=== PATIENT | female | born 1965 | race Caucasian/White ===

== ENCOUNTER → 2018-02-22 13:42 | Outpatient (CLI) | payer OTHER, SELFPAY ==
--- NOTE | 2018-02-22 13:47 | EKG12_ITS ---
Test Reason : PALPITATIONS Blood Pressure : / mmHG Vent. Rate : 059 BPM Atrial Rate : 059 BPM P-R Int : 152 ms QRS Dur : 092 ms QT Int : 446 ms P-R-T Axes : 053 018 040 degrees QTc Int : 441 ms Sinus bradycardia Otherwise normal ECG Confirmed by SUSANNE MICHELLE, IDALMIS ([id number]), editor managing newspaper ROD PADILLA ([id number]) on 02/23/2018 12:55:02 PM Referred By: Stephenie LONG Confirmed By:IDALMIS SKINNER MD
== END ==
LOC: CVS 13:43
PROVIDERS: Visit Provider Nurse Practitioner Family
DX: I49.9 Cardiac arrhythmia, unspecified (principal)
CPT/HCPCS: 93005

== ENCOUNTER → 2018-03-08 14:43 | Outpatient (CLI) | payer OTHER, SELFPAY | DX: Z12.31 Encounter for screening mammogram for malignant neoplasm of breast (principal) | CPT/HCPCS: 77063; 77067 ==

== ENCOUNTER → 2018-03-23 15:47 | Outpatient (CLI) | payer OTHER, SELFPAY | DX: R00.2 Palpitations (principal); R00.1 Bradycardia, unspecified; I49.9 Cardiac arrhythmia, unspecified; Z86.79 Personal history of other diseases of the circulatory system | CPT/HCPCS: 93306 ==

== ENCOUNTER → 2018-04-03 16:10 | Outpatient (CLI) | payer OTHER, SELFPAY | PROVIDERS: Visit Provider Internal Medicine Cardiovascular Disease | DX: R93.1 Abnormal findings on diagnostic imaging of heart and coronary circulation (principal); I36.1 Nonrheumatic tricuspid (valve) insufficiency; I51.9 Heart disease, unspecified; R07.9 Chest pain, unspecified; R06.02 Shortness of breath | CPT/HCPCS: 71046; 71275; Q9967; A4216 ==

== ENCOUNTER → 2018-04-12 09:28 | Outpatient (CLI) | payer OTHER, SELFPAY ==
[2018-04-12 12:21] LABS: AST(SGOT) 18 U/L (15-37); Alanine Aminotransfer ALT/SGPT 16 U/L (13-56); Albumin, Serum 3.8 g/dL (3.2-5.0); Alkaline Phosphatase 82 U/L (45-117); Bilirubin, Direct 0.17 mg/dL (0.00-0.30); Cholesterol 177 mg/dL (200); Globulin 4.1 g/dL (2.2-4.2); High Density Lipoprotein 46 mg/dL; Protein, Total 7.9 g/dL (6.4-8.2); Triglycerides 178 mg/dL; Very Low Density Lipoprotein 36 mg/dL (5-40)
== END ==
PROVIDERS: Visit Provider Internal Medicine Cardiovascular Disease
DX: R07.9 Chest pain, unspecified (principal); I42.8 Other cardiomyopathies; R06.02 Shortness of breath; E06.3 Autoimmune thyroiditis; E03.9 Hypothyroidism, unspecified; I51.9 Heart disease, unspecified; E78.5 Hyperlipidemia, unspecified
CPT/HCPCS: 36415; 80061; 80076; 93017; 93350

== ENCOUNTER → 2018-04-12 09:30 | Outpatient (REF) | payer OTHER, SELFPAY | LOC: CVS 09:30 | PROVIDERS: Visit Provider Internal Medicine Cardiovascular Disease | DX: R00.0 Tachycardia, unspecified (principal); R00.2 Palpitations | CPT/HCPCS: 93270 ==

== ENCOUNTER 2018-04-19 06:58 | Day surgery (SDC) | payer OTHER, SELFPAY ==
[2018-04-14 11:02] LABS: Hematocrit 39.1 % (37-47); Hemoglobin 12.6 g/dl (12.0-15.0); Mean Corp Hgb Conc 32.2 g/gl (32-36); Mean Corpuscular Hgb 29.6 pg (27.0-32.0); Mean Corpuscular Volume 91.8 fL (81-99); Mean Platelet Vol. 11.1 fl (6.2-12.0); Platelet Count 259 K/mm3 (150-450); RBC Distribution Width CV 13.4 % (11.6-14.6); RBC Distribution Width SD 44.4 fl (35.1-43.9); Red Blood Count 4.26 M/mm3 (4.2-5.4); White Blood Count 5.8 K/mm3 (4.4-11.0)
[2018-04-14 11:04] LABS: Scan Indicated on CBC? Y/N NO
[2018-04-14 11:11] LABS: Partial Thromboplast Time 28.5 Seconds (24.1-36.2)
[2018-04-14 11:20] LABS: Anion Gap 8 (5-15); BUN 17 mg/dL (7-18); BUN/Creat Ratio 22.8 RATIO (10-20); Chloride 105 mmol/L (98-107); Creatinine, Serum 0.74 mg/dL (0.55-1.02); EST Glomerular Filtration Rate 87 mL/min (>60); Est Glom Filt Rate - Afr Amer 105 mL/min (>60); Glucose 97 mg/dL (74-106); Potassium 3.9 mmol/L (3.5-5.1); Sodium Level 141 mmol/L (136-145)
[2018-04-18 07:57] VITALS: BMI 39.9
[2018-04-19] VITALS (22 sets, daily range): BP systolic 105–167; BP diastolic 54–100; PULSE 62–80; RESP 15–20; TEMP 36–36.4; O2SAT 97–99; BMI 39.7
[2018-04-19 07:34] LABS: Pregnancy, Serum, hCG Quali. NEGATIVE Negative (0-9 Nonpreg)
[2018-04-19 09:46] LABS: ACT Activated Clotting Time 208 sec (74-137)
--- NOTE | 2018-04-19 09:57 | CL.I_ITS ---
Patient Name: MIAN WOLFE Study Date: 04/19/2018 Performing: Shaji Cary MD Ht: 61.81 inches 157 cm : 1965 Wt: 218.26 lbs 99 kg Age: 52 Gender: female BSA: 1.98 PROCEDURE(S) PERFORMED [id number]/COR/LV [id number], CORONARY OR GRAFT, INITIAL VESSEL CT42-VUR W OR WO PTCA, SINGLE CORONARY ARTERY CLINICAL PROFILE AND CO-MORBIDITIES Indications: New Onset Angina <= 2 months, Worsening Angina, Suspected CAD, Cardiomyopathy Heart Failure: NYHA Class: 2, Newly Diagnosed: No, Heart Failure Type: Systolic Stress/Imaging Stress Echocardiogram: Yes Result: Negative Stress Echocardiogram: Negative Angina Classification Anginal Classification w/in 2 Weeks: CCS III CAD Presentations: Unstable angina. Comorbidities/Risk Factors: Hypertension Dyslipidemia Prior CHF CONCLUSIONS Global LV systolic dysfunction- Mild Single vessel CAD of the LAD Non obstructive coronary arteries Successful PTCA/BLANCO of the of proximal LAD after FFR eval showed 0.84. Pt received a 3.0 x 28 Promsu Synergy stent with primary deployment and had exact same anginal symptoms with balloon inflation. 7 5%-->0%, no dissection. RECOMMENDATIONS Staged for FFR Highly recommend quitting all tobacco products Follow up with primary childcare teacher Risk factor modification ASA Indefinitley Plavix for at least 12 months Routine post interventional care Refer for Outpatient Cardiac Rehab Manual sheath removal per protocol Follow up with Dr. Cary Successful Mynx closure of RFA. Sleep study eval in 2 weeks. DESCRIPTION OF PROCEDURE The patient arrived to the procedure lab. The risks and benefits of the procedure as well as a full d escription of our services here and lack of surgical backup were fully explained to the patient and/o r their significant other prior to the catheterization. The Timeout was completed, verifying the juana ect patient and procedure. The patient's procedural site was prepped and draped in the usual fashion. Local anesthetic was given subcutaneously to right groin region with Lidocaine 2%. Using a modified Seldinger technique, arterial access was obtained via the right femoral artery, a 4Fr sheath was inse rted. Left Coronary Artery selective angiography was performed in multiple views using a 4 Fr. JL5 c atheter. Right Coronary Artery selective angiography was then performed in multiple views using a 4 F r. AR MOD 2 catheter. Left Ventriculography was performed in BARROSO projection using a 4 Fr. Pigtail cat heter. LV to AO pullback pressures were then recordedThe images were reviewed and options discussed. A decision was then made to proceed with an Intervention, IVUS or other adjunct procedure. Arterial sheath was exchanged for a 6 Fr Sheath. EBU 3.5 Guide catheter was inserted and engaged into the LCA. The FFR/iFR wire was inserted. Adenosine was then given per protocol. Pressures and FFR/iFR were then recorded. FFR Ratio Baseline: 0.95 FFR Ratio post Adenosine: 0.84 The FFR/iFR wire was lef t in place as guide wire. 3.0 x 28 Synergy Drug Eluting stent was inserted. Drug Eluting stent was ad vanced across the lesion in the LAD, mid. Angiogram performed pre stent deployment. Angiogram perform ed post stent deployment. The FFR/iFR wire was then removed. Contrast was injected through the sheath and the Right Iliac and Femoral artery were assessed for possible closure device. The arterial christensen th was pulled and a Mynx closure device was deployed for hemostasis CORONARY ANGIOGRAPHY DOMINANCE: Co- Dominant LEFT HEART ASSESSMENT Left Ventricular Ejection Fraction: by LV Gram 40-45% Depressed Left Ventricular systolic function LVEDP: 12 mmHg Global Hypokinesis - Mild to moderate LEFT MAIN: Angiographically normal LEFT ANTERIOR DECENDING ARTERY: MID LAD: 75 % Stenosis CIRCUMFLEX ARTERY: Angiographically normal RIGHT CORONARY ARTERY: MID RCA: Mild luminal irregularities less than 30% INTERVENTION INFORMATION LESION SITE: LAD (Mid) Lesion Complexity: High/C, lesion at bifurcation: No, thrombus present: No, lesion length: 28 mm, cul prit lesion: Yes Pre Stenosis: 75 % Pre intervention ILIANA flow: 3 PROCEDURE: FFR, Drug Eluting Stent Post Stenosis: 0 % Post intervention ILIANA flow: 3 Lesion Devices: [employer] Devices ( Formerly [employer]) Coronary FFR Wire Nuzzeltronic 6 Fr EBU3.5 100cm Guide Catheter Gunnar Dimdim Synergy MR BLANCO 3.00x28 COMPLICATIONS No Complications PROCEDURE MEDICATIONS Versed 1 mg IV Versed 1 mg IV Oxygen: 2 L/min via nasal cannula Adenosine drip for FFR 27.2 ml IV @ 04/19/2018 09:35:37 Heparin 6000 unit(s) IV 04/19/2018 09:13:18 Nitro 200 mcg IC 04/19/2018 09:02:10 Nitro 200 mcg IC 04/19/2018 09:02:10 Nitro 200 mcg IC 04/19/2018 09:16:36 IV Bolus: .9 NaCl 500 ml total 04/19/2018 09:37:09 IV Fluids: .9 NaCl increased to WO ml/hr 04/19/2018 08:59:34 IV Fluids: .9 NaCl decreased to 150 ml/hr 04/19/2018 09:37:15 SUMMARY OF HEMODYNAMIC DATA Time AIR REST ECG 07:45:29 AO 126/76 (98) SA 08:59:21 LV 148/-10, 10 09:12:12 LV 147/-9, 12 09:12:19 LVp 138/-9, 10 09:12:24 AOp 133/67 (95) 09:12:29 Signed By Shaji Cary MD On 04/19/2018 09:57:11 Shaji Cary MD
[2018-04-19] MEDS: 0.9% Normal Saline 1,000 ML 150 ML IV (10:30)
--- NOTE | 2018-04-19 10:31 | EKG12_ITS ---
Test Reason : POST PCI Blood Pressure : / mmHG Vent. Rate : 069 BPM Atrial Rate : 069 BPM P-R Int : 178 ms QRS Dur : 094 ms QT Int : 444 ms P-R-T Axes : 058 022 025 degrees QTc Int : 475 ms Normal sinus rhythm Normal ECG When compared with ECG of 22-FEB-2018 14:01, No significant change was found Confirmed by SUSANNE MICHELLE, IDALMIS ([id number]), primer expeditor and drier ROD PADILLA ([id number]) on 04/23/2018 4:00:38 PM Referred By: Shaji Cary Confirmed By:IDALMIS SKINNER MD
[2018-04-19] MEDS: diazePAM 5 MG Tablet PO ×3 (11:39→23:45)
[2018-04-19] MEDS: Escitalopram Oxalate 20 MG Tablet PO (11:59)
[2018-04-19] MEDS: Carvedilol 3.125 MG TABLET PO ×2 (12:01→20:43)
--- NOTE | 2018-04-19 12:10 | CRPHASE1 ---
Patient Data/Charges Sand Cutter:: Shaji Cary Surgeon:: Shaji Cary Refer Phase II:: Yes Phase II Referral:: [facility] Risk Factors/Lifestyle Hx Dyslipidemia: Yes Family History: Family History (Last Reviewed 04/03/18 @ 15:06 by Marika Alejo) Father CAD (coronary artery disease) Diabetes Dementia Mother CAD (coronary artery disease) Hypertension Sister Diabetes Sister Diabetes Phase I Education Given On:: [place], Nutrition, Antiplatelet medication, CHF, Smoking cessation, Diabetes - Type I, Diabetes - Type II Knowledge of Condition:: Yes Hospital Course Presenting Symptoms:: CP, SOB Medical/Surgical History Angina:: Yes Dyslipidemia:: Yes PTCA:: Yes
--- NOTE | 2018-04-19 12:14 | CRPHASE1_ITS ---
Patient Data/Charges News Cameraman:: Shaji Cary Surgeon:: Shaji Cary Refer Phase II:: Yes Phase II Referral:: [facility] Risk Factors/Lifestyle Hx Dyslipidemia: Yes Family History: Family History (Last Reviewed 04/03/18 @ 15:06 by Marika Alejo) Father CAD (coronary artery disease) Diabetes Dementia Mother CAD (coronary artery disease) Hypertension Sister Diabetes Sister Diabetes Phase I Education Given On:: [place], Nutrition, Antiplatelet medication, CHF, Smoking cessation, Diabetes - Type I, Diabetes - Type II Knowledge of Condition:: Yes Hospital Course Presenting Symptoms:: CP, SOB Medical/Surgical History Angina:: Yes Dyslipidemia:: Yes PTCA:: Yes
--- NOTE | 2018-04-19 12:16 | CRPH1.INSTRU ---
General Education CAD and cardiac anatomy and function:: Patient communicates acknowledgment Explanation of diagnoses and procedures:: Patient communicates acknowledgment Sign/Symptoms of [place]:: Patient communicates acknowledgment Antiplatelet therapy: Patient communicates acknowledgment Proper use of NTG-SL: Not instructed Emergency procedures and activation of EMS: Patient communicates acknowledgment Compliance of all prescribed medications: Patient communicates acknowledgment Smoking Nicotine/Smoking Response Code:: Not instructed Dyslipidemia Dyslipidemia Response Code:: Patient communicates acknowledgment Overweight/Obesity Patient Overweight/Obesity Risk Factors Are:: Obesity - > or = 30 Overweight/Obesity:: Patient communicates acknowledgment Hypertension Hypertension:: Patient communicates acknowledgment Heart Disease Patient Heart Disease Risk Factors Are:: Family history of heart disease < 65 years old Heart Disease Response Code:: Patient communicates acknowledgment Diabetes Diabetes:: Patient communicates acknowledgment Metabolic Syndrome Metabolic Syndrome Response Code:: Patient communicates acknowledgment Sedentary Sedentary Response Code:: Patient communicates acknowledgment Stress Stress Response Code:: Patient communicates acknowledgment
[2018-04-19] MEDS: Metoclopramide 10 MG/2 ML Vial 5 MG IV (15:01)
[2018-04-19] MEDS: 0.9% NaCl Peripheral Flush Adult/Peds IV (15:01)
--- NOTE | 2018-04-19 15:50 | PCM.DC.CCA ---
Discharge Diet: Low fat/ Low Cholesterol May shower in (days): 1 May resume sexual activity in: 1 week - if no groin problems occur. Lifting Restrictions: 10 pounds and also avoid any pushing or pulling for 3 days after your test. Call your doctor if your incision/area has: Continuous Slow Oozing, Increased Pain/ Swelling, Increased Redness, Foul Smelling Discharge, Swelling at the incision site Call your doctor if you observe: Fever of 101 or Higher, Shortness of breath, Chest pain Remove Dressing in (days):: 1 Cleanse incision/area with: Soap & Water Additional Dressing/Incision Instructions:: Keep the dressing (bandage) on until the next morning. You may then shower, but do not take a tub bath for 5 days after your test. It is normal to have some tenderness and discomfort at the puncture site. Sometimes bruising also occurs. However, if pain, numbness, or coldness occurs below the puncture site (in your leg, toes, arms or fingers) call your doctor at once. You may have a small, marble sized knot at the puncture site. This is normal. Do not rub it. It will go away in 4-6 weeks. Bleeding can occur from the area where the puncture was done. Blood may spurt or drip from the site. If blood spurts, apply pressure right away to stop bleeding and call 911. Although rare, bleeding into the tissue (hematoma) can also occur. If this happens, a large, firm area goose egg under the skin will appear. If any of these occur, lie down as flat as you can and have someone apply firm pressure to the cath site with a gauze pad or a clean washcloth for 10-15 minutes. Call 911 or go to the Emergency Department. Additional Instructions: You will need to stay on your Plavix and ASA for at least one year. If someone asks rachel to hold this medication you need to call our office. At your next appt we will talk about cardiac rehab. You were started on Coreg and Lipitor, we will check your labs after your next visit. Allergies/Adverse Reactions: Allergies Sulfa (Sulfonamide Antibiotics) Allergy (Verified 04/02/18 10:39) Hives Medications to take at Discharge Ferrous Sulfate [Iron] 650 mg PO DAILY 12/30/16 levothyroxine 137 mcg capsule 137 mcg PO DAILY 04/02/18 escitalopram 20 mg tablet 20 mg PO DAILY 04/03/18 liothyronine 5 mcg tablet 5 mcg PO .COMPLEX 04/03/18 aspirin 81 mg tablet,delayed release 81 mg PO DAILY #30 tab 04/13/18 atorvastatin 20 mg tablet 20 mg PO QHS #30 tab 04/19/18 carvedilol 3.125 mg tablet 3.125 mg PO BID #60 tab 04/19/18 clopidogrel 75 mg tablet 75 mg PO DAILY #30 tab 04/19/18 Primary Care Physician: Allyn Kang [Primary Care Provider] - Test Results: Test results from this visit will be discussed in further detail at your follow-up appointment, if applicable. Please Follow Up With: Shaji Cary MD When: keep as is Cardiac Rehabilitation Info Cardiac Rehabilitation Program Information: Cardiac Rehabilitation is important for patients like you who are recovering from a heart problem. Cardiac rehabilitation programs are recognized as integral to the continued care of the patient with coronary heart disease. The cardiac rehabilitation program is designed to optimize a patient's physical, psychological, and social functioning. Health medicare specialist work in cardiac rehabilitation programs and assist you with getting the treatments you need to get stronger and healthier - like exercise, healthy eating habits, and medications. Cardiac rehabilitation has been show to help people with heart problems live longer and have better life enjoyment than people who do not go to cardiac rehabilitation. Please contact the Cardiac Rehabilitation Program at [facility] at in two weeks if you have not heard from them.
--- NOTE | 2018-04-19 15:53 | DCINST_ITS ---
Discharge Diet: Low fat/ Low Cholesterol May shower in (days): 1 May resume sexual activity in: 1 week - if no groin problems occur. Lifting Restrictions: 10 pounds and also avoid any pushing or pulling for 3 days after your test. Call your doctor if your incision/area has: Continuous Slow Oozing, Increased Pain/ Swelling, Increased Redness, Foul Smelling Discharge, Swelling at the incision site Call your doctor if you observe: Fever of 101 or Higher, Shortness of breath, Chest pain Remove Dressing in (days):: 1 Cleanse incision/area with: Soap & Water Additional Dressing/Incision Instructions:: Keep the dressing (bandage) on until the next morning. You may then shower, but do not take a tub bath for 5 days after your test. It is normal to have some tenderness and discomfort at the puncture site. Sometimes bruising also occurs. However, if pain, numbness, or coldness occurs below the puncture site (in your leg, toes, arms or fingers) call your doctor at once. You may have a small, marble sized knot at the puncture site. This is normal. Do not rub it. It will go away in 4-6 weeks. Bleeding can occur from the area where the puncture was done. Blood may spurt or drip from the site. If blood spurts, apply pressure right away to stop bleeding and call 911. Although rare, bleeding into the tissue (hematoma) can also occur. If this happens, a large, firm area goose egg under the skin will appear. If any of these occur, lie down as flat as you can and have someone apply firm pressure to the cath site with a gauze pad or a clean washcloth for 10-15 minutes. Call 911 or go to the Emergency Department. Additional Instructions: You will need to stay on your Plavix and ASA for at least one year. If someone asks rachel to hold this medication you need to call our office. At your next appt we will talk about cardiac rehab. You were started on Coreg and Lipitor, we will check your labs after your next visit. Allergies/Adverse Reactions: Allergies Sulfa (Sulfonamide Antibiotics) Allergy (Verified 04/02/18 10:39) Hives Medications to take at Discharge Ferrous Sulfate [Iron] 650 mg PO DAILY 12/30/16 levothyroxine 137 mcg capsule 137 mcg PO DAILY 04/02/18 escitalopram 20 mg tablet 20 mg PO DAILY 04/03/18 liothyronine 5 mcg tablet 5 mcg PO .COMPLEX 04/03/18 aspirin 81 mg tablet,delayed release 81 mg PO DAILY #30 tab 04/13/18 atorvastatin 20 mg tablet 20 mg PO QHS #30 tab 04/19/18 carvedilol 3.125 mg tablet 3.125 mg PO BID #60 tab 04/19/18 clopidogrel 75 mg tablet 75 mg PO DAILY #30 tab 04/19/18 Primary Care Physician: Allyn Kang [Primary Care Provider] - Test Results: Test results from this visit will be discussed in further detail at your follow- up appointment, if applicable. Please Follow Up With: Shaji Cary MD When: keep as is Cardiac Rehabilitation Info Cardiac Rehabilitation Program Information: Cardiac Rehabilitation is important for patients like you who are recovering from a heart problem. Cardiac rehabilitation programs are recognized as integral to the continued care of the patient with coronary heart disease. The cardiac rehabilitation program is designed to optimize a patient's physical, psychological, and social functioning. Health care transitions nurse work in cardiac rehabilitation programs and assist you with getting the treatments you need to get stronger and healthier - like exercise, healthy eating habits, and medications. Cardiac rehabilitation has been show to help people with heart problems live longer and have better life enjoyment than people who do not go to cardiac rehabilitation. Please contact the Cardiac Rehabilitation Program at [facility] at in two weeks if you have not heard from them.
[2018-04-19] MEDS: Acetaminophen 325 MG Tablet 650 MG PO ×2 (17:39→23:45)
[2018-04-19] MEDS: Levothyroxine 137 MCG Tablet PO (20:43)
[2018-04-19] MEDS: Atorvastatin Calcium 20 MG Tablet PO (20:43)
[2018-04-20] VITALS (12 sets, daily range): BP systolic 109–148; BP diastolic 47–91; PULSE 57–76; RESP 14–18; TEMP 36.1–36.7; O2SAT 95–99
[2018-04-20 04:54] LABS: Hematocrit 36.4 % (37-47); Mean Corpuscular Hgb 30.5 pg (27.0-32.0); Mean Corpuscular Volume 92.6 fL (81-99); Mean Platelet Vol. 10.6 fl (6.2-12.0); Platelet Count 255 K/mm3 (150-450); RBC Distribution Width CV 13.6 % (11.6-14.6); RBC Distribution Width SD 45.6 fl (35.1-43.9); Red Blood Count 3.93 M/mm3 (4.2-5.4)
[2018-04-20 04:56] LABS: Scan Indicated on CBC? Y/N NO
[2018-04-20 05:11] LABS: Anion Gap 10 (5-15); BUN 13 mg/dL (7-18); BUN/Creat Ratio 21.4 RATIO (10-20); Calcium,Total 8.6 mg/dL (8.5-10.1); Chloride 106 mmol/L (98-107); Cholesterol 137 mg/dL (200); Creatinine, Serum 0.61 mg/dL (0.55-1.02); EST Glomerular Filtration Rate 110 mL/min (>60); Est Glom Filt Rate - Afr Amer 133 mL/min (>60); Estimated Creatinine Clearance 82.33 ml/min; Glucose 105 mg/dL (74-106); High Density Lipoprotein 39 mg/dL; Potassium 3.8 mmol/L (3.5-5.1); Sodium Level 142 mmol/L (136-145); Triglycerides 134 mg/dL; Very Low Density Lipoprotein 27 mg/dL (5-40)
[2018-04-20] MEDS: Aspirin E.C. 81 MG Tablet PO (08:13)
[2018-04-20] MEDS: Ferrous Sulfate 325 MG Tablet 650 MG PO (08:13)
--- NOTE | 2018-04-20 08:48 | PCM.PN.CARD ---
Subjectve: Patient doing very well this morning. No chest pain, no groin pain. Hemoglobin and creatinine are within nominal limits. Telemetry showed normal sinus rhythm with rare PVC. EKG showed normal sinus rhythm with rare PVC no acute changes. Objective: Vital Signs Temp Pulse Resp BP Pulse Ox 98 F 63 14 144/77 H 96 04/20/18 08:00 04/20/18 08:00 04/20/18 08:00 04/20/18 08:00 04/20/18 08:00 Oxygen Delivery Method Room Air Weight: 220 lb 14.451 oz Body Mass Index (BMI) 39.7 Intake and Output for Last 24 Hours 04/18/18 04/19/18 04/20/18 23:59 23:59 23:59 Intake Total 1040 / 1040 240 / 240 Balance 1040 / 1040 240 / 240 General: Awake, Alert, Oriented x 3 HEENT: PERRL, EOMI, Sclera Non Icteric Neck: Supple, Good ROM, No Lymph Node Enlargement Lungs: Clear to auscultation Cardiovascular: Regular Rhythm, Normal S1, Normal S2, No Murmurs, No Rubs, No Gallops Vascular: No Carotid Bruits, Normal Femoral Pulses, Normal Radial Pulses, Normal Dorsalis Pedal Pulse, Normal Posterior Tibial Pulses Abdomen: Bowel Sounds Present, Soft, Non Tender, No HSM, No Organomegaly Extremities: No Cyanosis, No Clubbing, No edema Neurological: No Focal Motor or Sensory Deficit 04/20/18 04:45: WBC 7.0, RBC 3.93 L, Hgb 12.0, Hct 36.4 L, MCV 92.6, MCH 30.5, MCHC 33.0, RDW 13.6, RDW Differential 45.6 H, Plt Count 255, MPV 10.6 04/20/18 04:45: Sodium 142, Potassium 3.8, Chloride 106, Carbon Dioxide 26.0, Anion Gap 10, BUN 13, Creatinine 0.61, Est GFR (MDRD) Af Amer 133, Est GFR (MDRD) Non-Af 110, BUN/Creatinine Ratio 21.4 H, Glucose 105, Calcium 8.6, Triglycerides 134, Cholesterol 137, LDL Cholesterol 71, VLDL Cholesterol 27, HDL Cholesterol 39 L Rhythm: EKG: ECHO: Stress Test: Cardiac Cath: PCI: CT Surgery: Holter monitor: EPS: PPM: CXR: Chest CT Scan: Medical Necessity - Tobacco Use Smoking Status: Never smoker Tobacco Use: Non-smoker Assessment/Plan #1. Coronary artery disease: The patient presents with progressively worsening exertional chest pain, was found to have a possibly significant mid LAD stenosis. FFR evaluation showed to be 0.84, and it was repaired with a drug-eluting stent. She received a 3.0X 28 Promus Synergy stent, and had identical chest pain symptoms with balloon inflation and deployment. Overnight she feels much better, and her right groin, with a minx closure device is clean/dry/intact without evidence of thrills, bruits or hematoma. She has 2+ DP and PT pulses bilaterally. At this point the patient be discharged home on baby aspirin, Plavix and be enrolled in cardiac rehab once her groin is healed completely. We will start the patient on Coreg 3.125 mg p.o. twice daily for beta-meghana and afterload reduction. She has a history of cardiomyopathy and has some mild residual global hypokinesis with an EF around 45-50%. We will repeat her echocardiogram in 3 months time at the conclusion of cardiac rehab to see if her LV function has improved. Patient has minor nonobstructive disease of her mid RCA did not appear to require flow wire evaluation of this vessel. 2. Hyperlipidemia: Continue statin based medications. Repeat lipid profile in 6 weeks time. 3. Patient may be discharged home and follow-up with Dr. Cary on 05/17/18. Code Visit Inpatient E&M: 61994 Subs Hosp L2
--- NOTE | 2018-04-20 08:51 | PN.CARD_ITS ---
Subjectve: Patient doing very well this morning. No chest pain, no groin pain. Hemoglobin and creatinine are within nominal limits. Telemetry showed normal sinus rhythm with rare PVC. EKG showed normal sinus rhythm with rare PVC no acute changes. Objective: Vital Signs Temp Pulse Resp BP Pulse Ox 98 F 63 14 144/77 H 96 04/20/18 08:00 04/20/18 08:00 04/20/18 08:00 04/20/18 08:00 04/20/18 08:00 Oxygen Delivery Method Room Air Weight: 220 lb 14.451 oz Body Mass Index (BMI) 39.7 Intake and Output for Last 24 Hours 04/18/18 04/19/18 04/20/18 23:59 23:59 23:59 Intake Total 1040 / 1040 240 / 240 Balance 1040 / 1040 240 / 240 General: Awake, Alert, Oriented x 3 HEENT: PERRL, EOMI, Sclera Non Icteric Neck: Supple, Good ROM, No Lymph Node Enlargement Lungs: Clear to auscultation Cardiovascular: Regular Rhythm, Normal S1, Normal S2, No Murmurs, No Rubs, No Gallops Vascular: No Carotid Bruits, Normal Femoral Pulses, Normal Radial Pulses, Normal Dorsalis Pedal Pulse, Normal Posterior Tibial Pulses Abdomen: Bowel Sounds Present, Soft, Non Tender, No HSM, No Organomegaly Extremities: No Cyanosis, No Clubbing, No edema Neurological: No Focal Motor or Sensory Deficit 04/20/18 04:45: WBC 7.0, RBC 3.93 L, Hgb 12.0, Hct 36.4 L, MCV 92.6, MCH 30.5, MCHC 33.0, RDW 13.6, RDW Differential 45.6 H, Plt Count 255, MPV 10.6 04/20/18 04:45: Sodium 142, Potassium 3.8, Chloride 106, Carbon Dioxide 26.0, Anion Gap 10, BUN 13, Creatinine 0.61, Est GFR (MDRD) Af Amer 133, Est GFR (MDRD ) Non-Af 110, BUN/Creatinine Ratio 21.4 H, Glucose 105, Calcium 8.6, Triglycerides 134, Cholesterol 137, LDL Cholesterol 71, VLDL Cholesterol 27, HDL Cholesterol 39 L Rhythm: EKG: ECHO: Stress Test: Cardiac Cath: PCI: CT Surgery: Holter monitor: EPS: PPM: CXR: Chest CT Scan: Medical Necessity - Tobacco Use Smoking Status: Never smoker Tobacco Use: Non-smoker Assessment/Plan #1. Coronary artery disease: The patient presents with progressively worsening exertional chest pain, was found to have a possibly significant mid LAD stenosis. FFR evaluation showed to be 0.84, and it was repaired with a drug- eluting stent. She received a 3.0X 28 Promus Synergy stent, and had identical chest pain symptoms with balloon inflation and deployment. Overnight she feels much better, and her right groin, with a minx closure device is clean/dry/ intact without evidence of thrills, bruits or hematoma. She has 2+ DP and PT pulses bilaterally. At this point the patient be discharged home on baby aspirin, Plavix and be enrolled in cardiac rehab once her groin is healed completely. We will start the patient on Coreg 3.125 mg p.o. twice daily for beta-meghana and afterload reduction. She has a history of cardiomyopathy and has some mild residual global hypokinesis with an EF around 45-50%. We will repeat her echocardiogram in 3 months time at the conclusion of cardiac rehab to see if her LV function has improved. Patient has minor nonobstructive disease of her mid RCA did not appear to require flow wire evaluation of this vessel. 2. Hyperlipidemia: Continue statin based medications. Repeat lipid profile in 6 weeks time. 3. Patient may be discharged home and follow-up with Dr. Cary on 05/17/18. Code Visit Inpatient E&M: 49490 Subs Hosp L2
[2018-04-20] MEDS: Clopidogrel Bisulfate 75 MG Tablet PO (09:29)
[2018-04-20] MEDS: Escitalopram Oxalate 20 MG Tablet PO (09:29)
[2018-04-20] MEDS: Carvedilol 3.125 MG TABLET PO (09:38)
--- NOTE | 2018-04-20 10:00 | EKG12_ITS ---
Test Reason : AM Blood Pressure : / mmHG Vent. Rate : 056 BPM Atrial Rate : 056 BPM P-R Int : 162 ms QRS Dur : 092 ms QT Int : 458 ms P-R-T Axes : 041 004 015 degrees QTc Int : 441 ms Sinus bradycardia with occasional Premature ventricular complexes Otherwise normal ECG When compared with ECG of 19-APR-2018 09:53, MANUAL COMPARISON REQUIRED, DATA IS UNCONFIRMED Confirmed by SUSANNE MICHELLE, IDALMIS ([id number]), senior technical editor ROD PADILLA ([id number]) on 04/23/2018 3:57:54 PM Referred By: Shaji Cary Confirmed By:IDALMIS SKINNER MD
== END 2018-04-20 09:45 | disposition home or self-care (01) ==
LOC: CLSP 07:00 → ICU 10:55
PROVIDERS: Visit Provider Internal Medicine Cardiovascular Disease
DX: I25.110 Atherosclerotic heart disease of native coronary artery with unstable angina pectoris (principal); R93.1 Abnormal findings on diagnostic imaging of heart and coronary circulation; E78.5 Hyperlipidemia, unspecified; I34.0 Nonrheumatic mitral (valve) insufficiency; I36.1 Nonrheumatic tricuspid (valve) insufficiency; I42.8 Other cardiomyopathies; D50.9 Iron deficiency anemia, unspecified; E03.9 Hypothyroidism, unspecified; E06.3 Autoimmune thyroiditis; Z79.82 Long term (current) use of aspirin; Z79.01 Long term (current) use of anticoagulants; Z82.49 Family history of ischemic heart disease and other diseases of the circulatory system
CPT/HCPCS: 36415; 80048; 80061; 84703; 85027; 85347; 85610; 85730; 92928; 93005; 93458; 93571; 99152; 99153; C1760; J0153; J7030; J7040; Q9967; A4216; C1769; C1874; C1887; C1894; C9600

== ENCOUNTER → 2018-04-26 10:08 | Outpatient (CLI) | payer OTHER, SELFPAY ==
--- NOTE | 2018-04-26 10:16 | PCM.CR.ITP ---
General Information - General Information Admitting Diagnosis: PCI - Education/Goals Barriers to Learning: None Individual Counseling: Initial Assessment: Abnormal Cholesterol Levels, Overweight/Obesity, Sedentary Lifestyle, Stress, Family History of Heart Disease (under 65 years) Cardiac Rehabilitation Goals: 1. Maintain the individual as the primary focus of care. 2. To improve the patient's quality of life. 3. Identification of cardiac risk factors and provide cardiac risk factor management. 4. Enhance the psychosocial status of the patient. 5. Reconditioning enough to allow the patient to resume customary activities. 6. Control symptoms of cardiac disease Scale for measuring improvement of personal goals: Enter appropriate number in Comments. 2 = Unchanged. 3 = Slightly Better. 4 = Moderate Improvement. 5 = Met my Goal Personal Goals: Initial Assessment: Improve management of stress and emotions, Improve energy level, Participate in home exercise program, Get back to work, or to resume activities faster, Improve knowledge of cardiac disease, Improve muscle strength and endurance, Improve diet and eating habits (eat healthier), Control risk factors (learn risk factor modification) Nutrition - Initial Assessment - Program Goals Nutrition Program Goals: LDL <70. Total Cholesterol <200. HDL >45. Triglycerides <150. HgbA1C <7%. BMI <25 - Visit Date of Assessment:: 04/26/18 - Stages of Change Stages of Change:: Action - Diabetes Diabetes:: No - Weight Management Height: 1.57 m Weight:: 98.883 kg Weight Goal (kg):: 63.503 kg Body Fat %:: 39.9 Goal % Body Fat:: 24 - Intervention Referral to dietitian:: Yes Referral to Diabetic Clinic:: No Will attend diet classes:: Yes - Education Gave educational materials for:: Healthy eating Tobacco - Initial Assessment - Program Goals Tobacco Program Goals: Complete smoking cessation. Attend education classes. Improve Knowledge Test score - Stage of Change Stages of Change:: Maintenance - Learning Barriers Learning Barriers: Ready to Learn Total Score:: 16 - Family Support Do you have family support?: Yes - Tobacco Use Tobacco Use: Non-smoker - Intervention Smoking Cessation Referral:: No Individual Education/Counseling:: No Education Schedule Given:: Yes - Education Gave educational material for:: Tobacco triggers, Coronary artery disease, Risk factors, Sexuality, Medical compliance, Cardiac A&P, Angina signs & symptoms Psychosocial - Initial Assess - Target Goals Target Goals: Assess presence or absence of depression. Using a valid screening tool, maximizes coping skills. Positive support system - Stages of Change Stages of Change:: Action - Psychosocial Test Tool Used:: HANDS Depression Questionnaire Self-reported stress:: yes current health issues Tests Completed: Mood Scale Test - 16 Total Mood Screening Score:: 16 - referral to md and mental health, is on Lexapro Self-Efficacy Score:: 7 - Intervention PS - Interventions: Yes Referral to Mental Health, Yes Referral to Physician - is on Lexapro, denies suicidal ideation., Yes Attend Stress Management Classes, Yes Uses Stress Management Skills, No Referral to [facility] Case Management - Education Gave educational materials for:: Coping techniques, Signs & symptoms of depression, Stress management, Relaxation techniques - Patient/Program Goal Preventative Medication(s):: Aspirin, KARISHMA inhibitor, Clopidogrel, Beta meghana, Statin/lipid - Assistive Devices Assistive Devices:: None Fall Risk Assessed:: Yes Patient Health Questionnaire Initial Assessment 1. Little interest or pleasure in doing things: More than half the days 2. Feeling down, depressed, or hopeless: Several days 3. Trouble falling or staying asleep, or sleeping too much: Nearly every day 4. Feeling tired or having little energy: Nearly every day 5. Poor appetite or overeating: Nearly every day 6. Feeling bad about yourself -- or that you are a failure or have let yourself or your family down: Not at all 7. Trouble concentrating on things, such as reading the newspaper or watching television: Several days 8. Moving or speaking so slowly that other people could have noticed. Or the opposite - being so fidgety or restless that you have been moving around a lot more than usual: Several days 9. Thoughts that you would be better off , or of hurting yourself in some way: Not at all How difficult have these problems made it for you to do your work, take care of things at home, or get along with other people?: Not difficult at all Total Score: 14 JASON-Q SV Test - Statements CAD is a disease of the arteries in the heart: False Examples of risk factors for heart disease: True Angina is chest pain or discomfort: True The benefits of resistance training include: I Don't Know Eating more meat and dairy products: False Anti-platelet medications such as aspirin are important: True The only effective way to manage stress: False An exercise warm-up slowly increases heart rate: True Prepared, processed foods usually have high sodium: True Depression is common after a heart attack: True The statin medications lower cholesterol: True To control blood pressure, lower the amount of sodium: True If someone gets chest discomfort during walking: I Don't Know Transfats are partially hydrogenated vegetable oils: True Sleep apnea that is not treated increases the risk: True To control cholesterol, one should become a vegetarian: False Someone knows if he/she is exercising at the right level: True Diabetes cannot be prevented with exercise & health eating: True Stress is a large risk for heart attack: True A diet that can help lower blood pressure is rich in: True - Total Score Total Correct Responses: 16 Self-Efficacy Initial Assessment We would like to know how confident you are in doing certain activities. Please select your confidence level for:: Select your confidence level for the following using the scale 1-10 where 1 is not at all confident and 10 is totally confident. Your score is the average of all 6 responses. Fatigue: How confident are you that you can keep the fatigue caused by your disease from interfering with the things you want to do? Select Number: 5 Physical Discomfort or Pain: How confident are you that you can keep the physical discomfort or pain of your disease from interfering with the things you want to do? Select Number: 5 Emotional Distress: How confident are you that you can keep the emotional distress caused by your disease from interfering with the things you want to do? Select Number: 7 Other Symptoms or Health Problems: How confident are you that you can keep other symptoms or health problems from interfering with the things you want to do? Select Number: 7 Different Tasks and Activities: How confident are you that you can do the different tasks and activities needed to manage your health condition so as to reduce your need to see a doctor? Select Number: 7 Medication: How confident are you that you can do things other than just taking medication to reduce how much your illness affects your everyday life? Select Number: 7 Total Score:: 6 Nutrition Survey - Nutrition Survey Instructions Scoring Instructions: Scoring is as follows: Yes = 1 points. No = 0 point. Patient score that is >/=12 is considered to be at potential nutritional risk and could benefit from a referral to a registered dietitian. - Nutrition Survey Initial Have you lost >10 lbs over the past 2 months without trying?: No Are you following a special diet at home for diabetes, low fat, or low salt?: No Are you interested in meeting with a dietitian for help understanding your diet?: Yes Do you eat less than 3 meals a day?: Yes Do you eat fatty meats (moy, sausage, ribs, etc), fried foods, desserts, large amounts of salad dressings, margarine, butter, or cheese most days?: No Do you have food allergies? [Enter types in comment field]: No Do you eat in restaurants more than 3 times a week?: No Do you season food with salt, seasoning salt, or garlic salt?: Yes Do you used canned, boxed, frozen meals, or soups, seasoning packets?: Yes Total Score:: 4
--- NOTE | 2018-04-26 10:16 | PCM.CR.HP2 ---
CR - History & Physical - General Arrival date:: 04/26/18 Arrival time:: 10:16 Date of Referral:: 04/26/18 Date of CR Evaluation:: 04/26/18 Referring Physician: Dr.D. Cary Primary Diagnosis: PCI - History of Present Cardiac Event Onset Date: Enter Onset Date of cardiac illnesses in Comment field below Current stable Angina Pectoris:: Yes Acute Myocardial Infarction within 12 months:: No Coronary Artery Bypass Graft:: No Heart valve replacement or repair:: No PTCA or coronary stenting:: Yes - 04/19/18 Heart or Heart-Lung Transplant:: No Heart Failure EF <35%:: Yes - 45% now, was 30% 28 years ago Type of Symptoms:: chest pressure, SOB, dizziness. Interventions with present event:: stress echo, echo, CXR, CT scan, PCI Were there any complications?: no - Medications Home Medications: Ambulatory Orders Medication Instructions Recorded Ferrous Sulfate [Iron] 650 mg PO DAILY 12/30/16 levothyroxine 137 mcg capsule 137 mcg PO DAILY 04/02/18 escitalopram 20 mg tablet 20 mg PO DAILY 04/03/18 liothyronine 5 mcg tablet 5 mcg PO .COMPLEX 04/03/18 aspirin 81 mg tablet,delayed 81 mg PO DAILY #30 tab 04/13/18 release atorvastatin 20 mg tablet 20 mg PO QHS #30 tab 04/19/18 carvedilol 3.125 mg tablet 3.125 mg PO BID #60 tab 04/19/18 clopidogrel 75 mg tablet 75 mg PO DAILY #30 tab 04/19/18 - Allergies Allergies/Adverse Reactions: Allergies Sulfa (Sulfonamide Antibiotics) Allergy (Verified 04/25/18 14:52) Hives - Sleep Disorder Evaluation Hx of Sleep Apnea: No Do you snore loudly (louder than talking or can be heard through closed doors)?: No Do you often feel tired/ fatigued/ sleepy during daytime?: Yes Has anyone observed you stop breathing during sleep?: Yes History of Hypertension (for STOP score): No STOP Results: Positive Advanced Directives - Advanced Directives Power of Hat Cleaner: No Living Will: No Advance Directives Information Provided: Yes Advance Directives on File: No DNR Order?:: No - MOLST See MOLST form: No Past Medical History - Past Medical Illness Medical History: Past Medical History (Last Reviewed 04/25/18 @ 14:52 by Marika Alejo) Atherosclerosis of coronary artery (Chronic) Onset Date: 04/19/18 I25.10 Left heart cath in 1999 @ [facility] in [place]: nonobstructive disease, medical management only(done for cardiomyopathy). 04/19/2018: BLANCO to proximal LAD after FFR eval showed 0.84. Pt received a 3.0 x 28 Promus Synergy stent with primary deployment and had exact same anginal symptoms with balloon inflation. 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 - Past Surgical History Surgical History: Past Surgical History (Last Reviewed 04/25/18 @ 14:52 by Marika Alejo) History of left heart catheterization (Chronic) Z98.890 1999 @ [facility] in [place] for cardiomyopathy; 04/19/2018 @ [facility] Stented coronary artery (Chronic) Onset Date: 04/19/18 Z95.5 3.0 x 28 Promus Synergy to proximal LAD History of cholecystectomy Z90.49 Surgical History: cholecystectomy - Family History Summary Family History: Family History (Last Reviewed 04/25/18 @ 14:52 by Marika Alejo) Father CAD (coronary artery disease) Diabetes Dementia Mother CAD (coronary artery disease) Hypertension Sister Diabetes Type II Sister Diabetes Type II Social History - Smoking History Smoking Status: Never smoker - Alcohol Use Alcohol Usage: Yes - wine or mixed drink maybe once a month - Substance Abuse Hx Substance Use: No - Occupation 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 Left click = Reports ([place]) Review of Present Symptoms: Reports: Shortness of Breath at Rest - a little, Shortness of Breath with Exertion, Angina, Dizziness/Lightheadedness, Fatigue, Heart Arrhythmia/Irregularities, Appetite - Normal, Appetite - Special Diet, Sleep - Normal - sleeps 4-5 hrs with vivid dreams. Denies: PVD, Operative Discomfort, Wound Healing, Sexual Changes - Pain Is Patient Pain Free?: Yes Risk Factor Assessment - Chief Complaint Chief Complaint: PCI - Vital Signs Pulse Ox: 98 - Pulse Pulse Rate: 64 - Hypertension Blood Pressure Sitting - Right Arm: 106/72 Blood Pressure Sitting - Left Arm: 130/90 - Stress Stress: Recent - health - Obesity Height: 1.57 m Weight:: 98.883 kg Weight in Pounds: 218.0 lbs Weight Source: Stated by Patient Body Mass Index (BMI): 39.9 Desired Body Weight: 140 Realistic Weight Goal (Loss of 1-2 lbs/week): 106 Nutritional Referral for Obesity: Yes - Physical Inactivity Physical Inactivity: None - Risk Stratification Risk Guidelines: Lowest Risk: Risk Factor for Smoking, Risk Factor for Hypertension, Moderate Risk: Risk Factor for Dyslipidemia, Risk Factor for Diabetes, Risk Factor for Obesity, Risk Factor for Sedentary Lifestyle, Risk Factor for Depression - For Smoking Smoking Risk Guidelines: Smoking Low Risk: None or quit greater than 6 months ago. Smoking Moderate Risk: Smoker or quit 6 months or less ago. Smoking High Risk: Smoker - For Dyslipidemia Dyslipidemia Risk Guidelines: Low Risk: Moderate Risk: High Risk: 15-25% fat 25.1-29% fat >/= 30% fat. <7% sat fat 7-9% sat fat >9% sat fat. <150 mg chol 150-299 mg chol >/= 300 mg chol. LDL <100 LDL 100-129 LDL >/= 130. Chol/HDL ratio <5.0 Chol/HDL ratio 5.0-6.0 Chol/HDL ratio >6.0. Triglycerides <100 Triglycerides 100-149 Triglycerides >/= 150 - For Diabetes Mellitus Diabetes Risk Guidelines: Diabetes Low Risk: HgA1c <6.5% and/or FBG <120. Diabetes Moderate Risk: HgA1c 6.6-7.9% and/or FBG 120-180. Diabetes High Risk: HgA1c >/= 8% and/or FBG >180 - For Obesity/Overweight Obesity/Overweight Risk Guidelines: Obesity Low Risk: BMI <25.0. Obesity Moderate Risk: BMI 25-29.9. Obesity High Risk: BMI >/= 30.0 - For Hypertension Hypertension Risk Guidelines: Hypertension Low Risk: Systolic <120 and Diastolic <80. Hypertension Moderate Risk: Systolic 120-139 and Diastolic 80-89. Hypertension High Risk: Systolic >/= 140 and Diastolic >/= 90 - For Sedentary Lifestyle Sedentary Lifestyle Risk Guidelines: Sedentary Lifestyle Low Risk: >/= 1,500 kcal/week. Sedentary Lifestyle Moderate Risk: 700-1,499 kcal/week. Sedentary Lifestyle High Risk: < 700 kcal/week - For Depression Depression Risk Guidelines: Depression Low Risk: Not clinically depressed. Depression Moderate Risk: Mildly depressed. Depression High Risk: Clinically depressed - Family History Family History: Family History (Last Reviewed 04/25/18 @ 14:52 by Marika Alejo) Father CAD (coronary artery disease) Diabetes Dementia Mother CAD (coronary artery disease) Hypertension Sister Diabetes Sister Diabetes Motivation - Motivation to Participate On a scale of 1 to 10, how prepared are you to commit to attending program?: 8
--- NOTE | 2018-04-26 10:38 | CR.HP_ITS ---
CR - History & Physical - General Arrival date:: 04/26/18 Arrival time:: 10:16 Date of Referral:: 04/26/18 Date of CR Evaluation:: 04/26/18 Referring Physician: Dr.D. Cary Primary Diagnosis: PCI - History of Present Cardiac Event Onset Date: Enter Onset Date of cardiac illnesses in Comment field below Current stable Angina Pectoris:: Yes Acute Myocardial Infarction within 12 months:: No Coronary Artery Bypass Graft:: No Heart valve replacement or repair:: No PTCA or coronary stenting:: Yes - 04/19/18 Heart or Heart-Lung Transplant:: No Heart Failure EF <35%:: Yes - 45% now, was 30% 28 years ago Type of Symptoms:: chest pressure, SOB, dizziness. Interventions with present event:: stress echo, echo, CXR, CT scan, PCI Were there any complications?: no - Medications Home Medications: Ambulatory Orders Medication Instructions Recorded Ferrous Sulfate [Iron] 650 mg PO DAILY 12/30/16 levothyroxine 137 mcg capsule 137 mcg PO DAILY 04/02/18 escitalopram 20 mg tablet 20 mg PO DAILY 04/03/18 liothyronine 5 mcg tablet 5 mcg PO .COMPLEX 04/03/18 aspirin 81 mg tablet,delayed 81 mg PO DAILY #30 tab 04/13/18 release atorvastatin 20 mg tablet 20 mg PO QHS #30 tab 04/19/18 carvedilol 3.125 mg tablet 3.125 mg PO BID #60 tab 04/19/18 clopidogrel 75 mg tablet 75 mg PO DAILY #30 tab 04/19/18 - Allergies Allergies/Adverse Reactions: Allergies Sulfa (Sulfonamide Antibiotics) Allergy (Verified 04/25/18 14:52) Hives - Sleep Disorder Evaluation Hx of Sleep Apnea: No Do you snore loudly (louder than talking or can be heard through closed doors)? : No Do you often feel tired/ fatigued/ sleepy during daytime?: Yes Has anyone observed you stop breathing during sleep?: Yes History of Hypertension (for STOP score): No STOP Results: Positive Advanced Directives - Advanced Directives Power of Overcoiler: No Living Will: No Advance Directives Information Provided: Yes Advance Directives on File: No DNR Order?:: No - MOLST See MOLST form: No Past Medical History - Past Medical Illness Medical History: Past Medical History (Last Reviewed 04/25/18 @ 14:52 by Marika Alejo) Atherosclerosis of coronary artery (Chronic) Onset Date: 04/19/18 I25.10 Left heart cath in 1999 @ [facility] in [place]: nonobstructive disease, medical management only(done for cardiomyopathy). 04/19/2018: BLANCO to proximal LAD after FFR eval showed 0.84. Pt received a 3.0 x 28 Promus Synergy stent with primary deployment and had exact same anginal symptoms with balloon inflation. 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 - Past Surgical History Surgical History: Past Surgical History (Last Reviewed 04/25/18 @ 14:52 by Marika Alejo) History of left heart catheterization (Chronic) Z98.890 1999 @ [facility] in [place] for cardiomyopathy; 04/19/2018 @ [facility] Stented coronary artery (Chronic) Onset Date: 04/19/18 Z95.5 3.0 x 28 Promus Synergy to proximal LAD History of cholecystectomy Z90.49 Surgical History: cholecystectomy - Family History Summary Family History: Family History (Last Reviewed 04/25/18 @ 14:52 by Marika Alejo) Father CAD (coronary artery disease) Diabetes Dementia Mother CAD (coronary artery disease) Hypertension Sister Diabetes Type II Sister Diabetes Type II Social History - Smoking History Smoking Status: Never smoker - Alcohol Use Alcohol Usage: Yes - wine or mixed drink maybe once a month - Substance Abuse Hx Substance Use: No - Occupation 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 Left click = Reports ([place]) Review of Present Symptoms: Reports: Shortness of Breath at Rest - a little, Shortness of Breath with Exertion, Angina, Dizziness/Lightheadedness, Fatigue, Heart Arrhythmia/Irregularities, Appetite - Normal, Appetite - Special Diet, Sleep - Normal - sleeps 4-5 hrs with vivid dreams. Denies: PVD, Operative Discomfort, Wound Healing, Sexual Changes - Pain Is Patient Pain Free?: Yes Risk Factor Assessment - Chief Complaint Chief Complaint: PCI - Vital Signs Pulse Ox: 98 - Pulse Pulse Rate: 64 - Hypertension Blood Pressure Sitting - Right Arm: 106/72 Blood Pressure Sitting - Left Arm: 130/90 - Stress Stress: Recent - health - Obesity Height: 1.57 m Weight:: 98.883 kg Weight in Pounds: 218.0 lbs Weight Source: Stated by Patient Body Mass Index (BMI): 39.9 Desired Body Weight: 140 Realistic Weight Goal (Loss of 1-2 lbs/week): 106 Nutritional Referral for Obesity: Yes - Physical Inactivity Physical Inactivity: None - Risk Stratification Risk Guidelines: Lowest Risk: Risk Factor for Smoking, Risk Factor for Hypertension, Moderate Risk: Risk Factor for Dyslipidemia, Risk Factor for Diabetes, Risk Factor for Obesity, Risk Factor for Sedentary Lifestyle, Risk Factor for Depression - For Smoking Smoking Risk Guidelines: Smoking Low Risk: None or quit greater than 6 months ago. Smoking Moderate Risk: Smoker or quit 6 months or less ago. Smoking High Risk: Smoker - For Dyslipidemia Dyslipidemia Risk Guidelines: Low Risk: Moderate Risk: High Risk: 15-25% fat 25.1-29% fat >/= 30% fat. <7% sat fat 7-9% sat fat >9% sat fat. <150 mg chol 150-299 mg chol >/= 300 mg chol. LDL <100 LDL 100-129 LDL >/= 130. Chol/HDL ratio <5.0 Chol/HDL ratio 5.0-6.0 Chol/HDL ratio >6.0. Triglycerides <100 Triglycerides 100-149 Triglycerides >/= 150 - For Diabetes Mellitus Diabetes Risk Guidelines: Diabetes Low Risk: HgA1c <6.5% and/or FBG <120. Diabetes Moderate Risk: HgA1c 6.6-7.9% and/or FBG 120-180. Diabetes High Risk: HgA1c >/= 8% and/or FBG >180 - For Obesity/Overweight Obesity/Overweight Risk Guidelines: Obesity Low Risk: BMI <25.0. Obesity Moderate Risk: BMI 25-29.9. Obesity High Risk: BMI >/= 30.0 - For Hypertension Hypertension Risk Guidelines: Hypertension Low Risk: Systolic <120 and Diastolic <80. Hypertension Moderate Risk: Systolic 120-139 and Diastolic 80-89. Hypertension High Risk: Systolic >/= 140 and Diastolic >/= 90 - For Sedentary Lifestyle Sedentary Lifestyle Risk Guidelines: Sedentary Lifestyle Low Risk: >/= 1 ,500 kcal/week. Sedentary Lifestyle Moderate Risk: 700-1,499 kcal/week. Sedentary Lifestyle High Risk: < 700 kcal/week - For Depression Depression Risk Guidelines: Depression Low Risk: Not clinically depressed. Depression Moderate Risk: Mildly depressed. Depression High Risk: Clinically depressed - Family History Family History: Family History (Last Reviewed 04/25/18 @ 14:52 by Marika Alejo) Father CAD (coronary artery disease) Diabetes Dementia Mother CAD (coronary artery disease) Hypertension Sister Diabetes Sister Diabetes Motivation - Motivation to Participate On a scale of 1 to 10, how prepared are you to commit to attending program?: 8
[2018-04-26 11:03] VITALS: BP 106/72; BP 130/90; PULSE 64; O2SAT 98; BMI 39.9
== END ==
PROVIDERS: Visit Provider Internal Medicine Cardiovascular Disease
DX: I25.10 Atherosclerotic heart disease of native coronary artery without angina pectoris (principal); E78.5 Hyperlipidemia, unspecified; I34.0 Nonrheumatic mitral (valve) insufficiency; I36.1 Nonrheumatic tricuspid (valve) insufficiency; I42.8 Other cardiomyopathies; E03.9 Hypothyroidism, unspecified; E06.3 Autoimmune thyroiditis; L80 Vitiligo; Z95.5 Presence of coronary angioplasty implant and graft; Z90.49 Acquired absence of other specified parts of digestive tract; Z79.82 Long term (current) use of aspirin; Z79.899 Other long term (current) drug therapy

== ENCOUNTER 2018-05-04 08:00 | Outpatient (RCR) | payer OTHER, SELFPAY | END 2018-05-06 23:59 | LOC: CR 08:00 | PROVIDERS: Visit Provider Internal Medicine Cardiovascular Disease | DX: Z95.5 Presence of coronary angioplasty implant and graft (principal); I25.10 Atherosclerotic heart disease of native coronary artery without angina pectoris | CPT/HCPCS: 93798 ==

== ENCOUNTER 2018-05-22 08:13 | Outpatient (RCR) | payer OTHER, SELFPAY | END 2018-06-06 23:59 | LOC: NS 08:13 | PROVIDERS: Visit Provider Internal Medicine Cardiovascular Disease | DX: E78.5 Hyperlipidemia, unspecified (principal); E66.09 Other obesity due to excess calories; Z68.41 Body mass index [BMI] 40.0-44.9, adult; Z71.3 Dietary counseling and surveillance | CPT/HCPCS: 97802 ==

== ENCOUNTER → 2018-05-30 09:09 | Outpatient (CLI) | payer OTHER, SELFPAY ==
--- NOTE | 2018-05-30 09:11 | US_ITS ---
STUDY: THYROID ULTRASOUND REASON FOR EXAM: Female, 52 years old. Autoimmune thyroiditis TECHNIQUE: Ultrasound evaluation of the thyroid was performed with real-time and static stringer-scale imaging. COMPARISON: None. FINDINGS: RIGHT LOBE: The right lobe of the thyroid gland measures 3.3 x 1.5 x 0.9 cm. There is a heterogeneous echotexture. There are no demonstrated solid, cystic or complex lesions. LEFT LOBE: The left lobe of the thyroid gland measures 3.2 x 0.9 x 0.8 cm. There is a heterogeneous echotexture. There is a questionable hypoechoic upper pole nodule measuring 5 x 3 x 3 mm. ISTHMUS: The isthmus measures 2 mm . The regional lymph nodes are normal. US/Thyroid IMPRESSION: The left and right thyroid lobes are small in size and heterogeneous in echogenicity. There is a questionable hypoechoic nodule of the superior pole of the left thyroid lobe measuring 5 x 3 x 3 mm. Electronically Signed: Chuy Melendez MD at 16:49 EDT , Service support ,
== END ==
DX: E06.3 Autoimmune thyroiditis (principal)
CPT/HCPCS: 76536

== ENCOUNTER 2018-06-06 10:15 | Outpatient (RCR) | payer OTHER, SELFPAY ==
--- NOTE | 2018-05-25 09:08 | PCM.CR.ITP ---
General Information - General Information Admitting Diagnosis: PCI - Education/Goals Cardiac Rehabilitation Goals: 1. Maintain the individual as the primary focus of care. 2. To improve the patient's quality of life. 3. Identification of cardiac risk factors and provide cardiac risk factor management. 4. Enhance the psychosocial status of the patient. 5. Reconditioning enough to allow the patient to resume customary activities. 6. Control symptoms of cardiac disease Scale for measuring improvement of personal goals: Enter appropriate number in Comments. 2 = Unchanged. 3 = Slightly Better. 4 = Moderate Improvement. 5 = Met my Goal Exercise - 30-day Assessment - Visit Date of Eval: 05/25/18 Session #:: 9 - Stages of Change Stages of Change:: Action - Exercise Prescription Mode:: Treadmill, Biodyne, NuStep Frequency (x/week): 3 Duration:: 30 METs - Progression: 0.5-1 MET as tolerated: 3.2 Target Heart Rate:: 111-127 Max HR 126 - Hypertension Resting Blood Pressure:: 114/78 Peak Exercise Blood Pressure:: 128/84 Medication Changes:: Yes - 05/23 off of Atorvastatin - Intervention Home Exercise/Activity Goal:: Moderate Exercise 30 min/day x 5 days/wk - Education Goals:: Warm-up, RPE VANESSA Scale, S/S, Safe Exercise, Self-Monitoring - Exercise Program Goals Exercise Program Goals: Aerobic Activity >30 min, B/P <130/80 Nutrition - 30-Day Assessment - Program Goals Nutrition Program Goals: LDL <70. Total Cholesterol <200. HDL >45. Triglycerides <150. HgbA1C <7%. BMI <25 - Visit Date of Eval: 05/25/18 - Stages of Change Stages of Change:: Action - Lipids Has the patient seen the dietitian?: No - Diabetes Diabetes:: No - Weight Management Weight:: 100.017 kg - Intervention Referral to dietitian:: Yes Referral to Diabetic Clinic:: No Will attend diet classes:: Yes - Education Attended class for:: Signs & symptoms of hypoglycemia, Signs & symptoms of hyperglycemia, Relate diabetes to coronary artery disease, Healthy eating Tobacco - Initial Assessment - Program Goals Tobacco Program Goals: Complete smoking cessation. Attend education classes. Improve Knowledge Test score - Learning Barriers Learning Barriers: Ready to Learn Tobacco - 30-Day Assessment - Program Goals Tobacco Program Goals: Complete smoking cessation. Attend education classes. Improve Knowledge Test score - Stage of Change Stages of Change:: Action - Learning Barriers Learning Barriers: Participates in education - Family Support Do you have family support?: Yes - Tobacco Use Tobacco Use: Non-smoker - Intervention Smoking Cessation Referral:: No Individual Education/Counseling:: No Education Schedule Given:: Yes - Education Attended class for:: Tobacco triggers, Coronary artery disease, Risk factors, Sexuality, Medical compliance, Cardiac A&P, Angina signs & symptoms Psychosocial - Initial Assess - Target Goals Target Goals: Assess presence or absence of depression. Using a valid screening tool, maximizes coping skills. Positive support system - Psychosocial Test Tool Used:: HANDS Depression Questionnaire - Assistive Devices Fall Risk Assessed:: Yes Psychosocial - 30-Day Assess - Target Goals Target Goals: Assess presence or absence of depression. Using a valid screening tool, maximizes coping skills. Positive support system - Stages of Change Stages of Change:: Action - Psychosocial Test Tool Used:: HANDS Depression Questionnaire - Intervention PS - Interventions: Yes Attend Stress Management Classes, Yes Uses Stress Management Skills, No Referral to Mental Health, No Referral to [facility] Case Management, No Referral to Physician - Education Attended classes for:: Coping techniques, Signs & symptoms of depression, Stress management, Relaxation techniques - Assistive Devices Assistive Devices:: None Fall Risk Assessed:: Yes Patient Health Questionnaire 30-Day Re-eval Assessment 1. Little interest or pleasure in doing things: More than half the days 2. Feeling down, depressed, or hopeless: Several days 3. Trouble falling or staying asleep, or sleeping too much: Nearly every day 4. Feeling tired or having little energy: Nearly every day 5. Poor appetite or overeating: Nearly every day 6. Feeling bad about yourself -- or that you are a failure or have let yourself or your family down: Several days 7. Trouble concentrating on things, such as reading the newspaper or watching television: Several days 8. Moving or speaking so slowly that other people could have noticed. Or the opposite - being so fidgety or restless that you have been moving around a lot more than usual: Several days 9. Thoughts that you would be better off , or of hurting yourself in some way: Not at all How difficult have these problems made it for you to do your work, take care of things at home, or get along with other people?: Not difficult at all Total Score: 15 Self-Efficacy 30-Day Re-eval Assessment We would like to know how confident you are in doing certain activities. Please select your confidence level for:: Select your confidence level for the following using the scale 1-10 where 1 is not at all confident and 10 is totally confident. Your score is the average of all 6 responses. Fatigue: How confident are you that you can keep the fatigue caused by your disease from interfering with the things you want to do? Select Number: 6 Physical Discomfort or Pain: How confident are you that you can keep the physical discomfort or pain of your disease from interfering with the things you want to do? Select Number: 6 Emotional Distress: How confident are you that you can keep the emotional distress caused by your disease from interfering with the things you want to do? Select Number: 7 Other Symptoms or Health Problems: How confident are you that you can keep other symptoms or health problems from interfering with the things you want to do? Select Number: 7 Different Tasks and Activities: How confident are you that you can do the different tasks and activities needed to manage your health condition so as to reduce your need to see a doctor? Select Number: 7 Medication: How confident are you that you can do things other than just taking medication to reduce how much your illness affects your everyday life? Select Number: 7 Total Score:: 6
[2018-05-25 09:15] VITALS: BP 114/78; BP 128/84
== END 2018-06-06 23:59 ==
LOC: CR 10:15
PROVIDERS: Referring Provider Internal Medicine Cardiovascular Disease; Visit Provider Internal Medicine Cardiovascular Disease
DX: I25.10 Atherosclerotic heart disease of native coronary artery without angina pectoris (principal); Z95.5 Presence of coronary angioplasty implant and graft
CPT/HCPCS: 93798

== ENCOUNTER → 2018-06-08 10:41 | Outpatient (CLI) | payer OTHER, SELFPAY ==
[2018-06-08 11:54] LABS: AST(SGOT) 14 U/L (15-37); Alanine Aminotransfer ALT/SGPT 20 U/L (13-56); Albumin, Serum 3.5 g/dL (3.2-5.0); Alkaline Phosphatase 98 U/L (45-117); Cholesterol 120 mg/dL (200); Globulin 3.7 g/dL (2.2-4.2); High Density Lipoprotein 37 mg/dL; Protein, Total 7.2 g/dL (6.4-8.2); Triglycerides 153 mg/dL; Very Low Density Lipoprotein 31 mg/dL (5-40)
== END ==
PROVIDERS: Nurse Practitioner Family; Referring Provider Internal Medicine Cardiovascular Disease; Visit Provider Internal Medicine Cardiovascular Disease
DX: I25.10 Atherosclerotic heart disease of native coronary artery without angina pectoris (principal); E78.00 Pure hypercholesterolemia, unspecified
CPT/HCPCS: 36415; 80061; 80076

== ENCOUNTER 2018-06-25 11:30 | Outpatient (RCR) | payer OTHER, SELFPAY | END 2018-06-25 23:59 | LOC: NS 11:30 | PROVIDERS: Visit Provider Internal Medicine Cardiovascular Disease | DX: E78.5 Hyperlipidemia, unspecified (principal); E66.09 Other obesity due to excess calories; Z68.41 Body mass index [BMI] 40.0-44.9, adult; Z71.3 Dietary counseling and surveillance; I42.8 Other cardiomyopathies; E06.3 Autoimmune thyroiditis; Z95.5 Presence of coronary angioplasty implant and graft | CPT/HCPCS: 97803 ==

== ENCOUNTER 2018-07-06 10:15 | Outpatient (RCR) | payer OTHER, SELFPAY ==
[2018-06-07 01:44] VITALS: BP 114/78; BP 128/84
--- NOTE | 2018-06-25 07:59 | PCM.CR.ITP ---
Exercise - 60-Day Assessment - Visit Date of Eval: 06/25/18 Session #:: 23 - Stages of Change Stages of Change:: Action - Exercise Prescription Mode:: Treadmill, Airdyne, NuStep Frequency (x/week): 3 Duration:: 35 METs: 4 Target Heart Rate:: 111-127 with max HR 126 - Hypertension Resting Blood Pressure:: 146/80 Peak Exercise Blood Pressure:: 146/80 Medication Changes:: Yes - Intervention Home Exercise/Activity Goal:: Moderate Exercise 30 min/day x 5 days/wk - Education Goals:: Warm-up, RPE VANESSA Scale, S/S, Safe Exercise, Self-Monitoring - Exercise Program Goals Exercise Program Goals: Aerobic Activity >30 min Nutrition - 60-Day Assessment - Program Goals Nutrition Program Goals: LDL <70. Total Cholesterol <200. HDL >45. Triglycerides <150. HgbA1C <7%. BMI <25 - Visit Date of Eval: 06/25/18 - Stages of Change Stages of Change:: Action - Lipids Has the patient seen the dietitian?: No - Diabetes Diabetes:: No - Weight Management Weight:: 216 lb - down 4 pounds this 30-days - Intervention Referral to dietitian:: No Referral to Diabetic Clinic:: No Will attend diet classes:: Yes - Education Attended class for:: Healthy eating Tobacco - Initial Assessment - Program Goals Tobacco Program Goals: Complete smoking cessation. Attend education classes. Improve Knowledge Test score - Learning Barriers Learning Barriers: Ready to Learn Tobacco - 60-Day Assessment - Program Goals Tobacco Program Goals: Complete smoking cessation. Attend education classes. Improve Knowledge Test score - Stage of Change Stages of Change:: Action - Learning Barriers Learning Barriers: Participates in education - Family Support Do you have family support?: Yes - Tobacco Use Tobacco Use: Non-smoker Do you use smokeless tobacco?: No - Intervention Smoking Cessation Referral:: No Individual Education/Counseling:: No Education Schedule Given:: Yes - Education Attended class for:: Coronary artery disease, Risk factors, Sexuality, Medical compliance, Cardiac A&P, Angina signs & symptoms Psychosocial - Initial Assess - Target Goals Target Goals: Assess presence or absence of depression. Using a valid screening tool, maximizes coping skills. Positive support system - Psychosocial Test Tool Used:: HANDS Depression Questionnaire - Assistive Devices Fall Risk Assessed:: Yes Psychosocial - 60-Day Assess - Target Goals Target Goals: Assess presence or absence of depression. Using a valid screening tool, maximizes coping skills. Positive support system - Stages of Change Stages of Change:: Action - Psychosocial Test Tool Used:: HANDS Depression Questionnaire - Intervention PS - Interventions: Yes Attend Stress Management Classes, Yes Uses Stress Management Skills, No Referral to Mental Health, No Referral to [facility] Case Management, No Referral to Physician - Education Attended classes for:: Coping techniques, Signs & symptoms of depression, Stress management, Relaxation techniques - Patient/Program Goal Preventative Medication(s):: Aspirin, Clopidogrel, Beta meghana, Statin/lipid - Assistive Devices Assistive Devices:: None Fall Risk Assessed:: Yes Patient Health Questionnaire 60-Day Re-eval Assessment 1. Little interest or pleasure in doing things: Not at all 2. Feeling down, depressed, or hopeless: Not at all 3. Trouble falling or staying asleep, or sleeping too much: Not at all 4. Feeling tired or having little energy: Not at all 5. Poor appetite or overeating: Not at all 6. Feeling bad about yourself -- or that you are a failure or have let yourself or your family down: Not at all 7. Trouble concentrating on things, such as reading the newspaper or watching television: Not at all 8. Moving or speaking so slowly that other people could have noticed. Or the opposite - being so fidgety or restless that you have been moving around a lot more than usual: Not at all 9. Thoughts that you would be better off , or of hurting yourself in some way: Not at all How difficult have these problems made it for you to do your work, take care of things at home, or get along with other people?: Not difficult at all Total Score: 0 Self-Efficacy 60-Day Re-eval Assessment We would like to know how confident you are in doing certain activities. Please select your confidence level for:: Select your confidence level for the following using the scale 1-10 where 1 is not at all confident and 10 is totally confident. Your score is the average of all 6 responses. Fatigue: How confident are you that you can keep the fatigue caused by your disease from interfering with the things you want to do? Select Number: 9 Physical Discomfort or Pain: How confident are you that you can keep the physical discomfort or pain of your disease from interfering with the things you want to do? Select Number: 10 Emotional Distress: How confident are you that you can keep the emotional distress caused by your disease from interfering with the things you want to do? Select Number: 10 Other Symptoms or Health Problems: How confident are you that you can keep other symptoms or health problems from interfering with the things you want to do? Select Number: 9 Different Tasks and Activities: How confident are you that you can do the different tasks and activities needed to manage your health condition so as to reduce your need to see a doctor? Select Number: 10 Medication: How confident are you that you can do things other than just taking medication to reduce how much your illness affects your everyday life? Select Number: 10 Total Score:: 9
[2018-06-25 08:04] VITALS: BP 146/80
== END 2018-07-06 23:59 ==
LOC: CR 10:15
PROVIDERS: Referring Provider Internal Medicine Cardiovascular Disease; Visit Provider Internal Medicine Cardiovascular Disease
DX: I25.10 Atherosclerotic heart disease of native coronary artery without angina pectoris (principal); Z95.5 Presence of coronary angioplasty implant and graft
CPT/HCPCS: 93798

== ENCOUNTER 2018-07-27 10:15 | Outpatient (RCR) | payer OTHER, SELFPAY ==
[2018-06-11 13:31] VITALS: BMI 40.4
[2018-07-07 01:24] VITALS: BP 146/80
== END 2018-08-06 23:59 ==
LOC: CR 10:15
PROVIDERS: Referring Provider Internal Medicine Cardiovascular Disease; Visit Provider Internal Medicine Cardiovascular Disease
DX: I25.10 Atherosclerotic heart disease of native coronary artery without angina pectoris (principal); Z95.5 Presence of coronary angioplasty implant and graft
CPT/HCPCS: 93798

== ENCOUNTER 2018-08-15 06:30 | Outpatient (RCR) | payer OTHER, SELFPAY ==
[2018-06-11 13:31] VITALS: BMI 40.4
[2018-08-07 00:59] VITALS: BP 146/80
== END 2018-09-06 23:59 ==
LOC: CR 06:30
PROVIDERS: Referring Provider Internal Medicine Cardiovascular Disease; Visit Provider Internal Medicine Cardiovascular Disease
DX: I25.10 Atherosclerotic heart disease of native coronary artery without angina pectoris (principal); Z95.5 Presence of coronary angioplasty implant and graft
CPT/HCPCS: 93798

== ENCOUNTER 2018-09-22 19:46 | Emergency (ER) | payer OTHER, SELFPAY ==
[2018-09-22 19:48] VITALS: BP 158/85; PULSE 86; RESP 18; TEMP 36.6; O2SAT 96; BMI 42.3
--- NOTE | 2018-09-22 20:35 | CT_ITS ---
STUDY: CT BRAIN WITHOUT CONTRAST REASON FOR EXAM: Female, 53 years old. Fall, forehead laceration, on blood thinners RADIATION DOSAGE (If Supplied By Facility): CTDIvol = ( 44.99 ) mGy, DLP = ( 762.36 ) mGycm TECHNIQUE: Transaxial CT imaging of the brain was performed without administration of intravenous contrast material. Individualized dose optimization techniques were used for this CT. COMPARISON: None. FINDINGS: Mild right supraorbital soft tissue swelling but no underlying fracture. Minimal laceration is suspected on image 19. Normal calvarium. Normal size ventricles and extra-axial spaces for the patient's age. Normal white matter tracts of the cerebral hemispheres. Normal basal ganglia and thalami. Normal brainstem. Normal cerebellum. There is calcification of the anterior falx. There is no intracranial hemorrhage. There are no findings of an acute ischemic infarction. Focal mucosal thickening in the bilateral maxillary sinuses compatible with mucosal retention cysts. CT/Brain/Head without Contrast IMPRESSION: 1. No acute intracranial hemorrhage or mass effect. 2. Right frontal/supraorbital soft tissue swelling with small laceration. 3. Bilateral maxillary sinus mucosal retention cysts. Electronically Signed: Abel Azul MD at 21:36 EST , Service support ,
[2018-09-22] MEDS: Ondansetron ODT 4 MG Tablet PO (20:51)
[2018-09-22] MEDS: Acetaminophen 500 MG Tablet 1000 MG PO (20:51)
[2018-09-22] MEDS: Lidocaine/Epi/Tetracaine 50 ML 1 APPLIC TOPICAL (20:55)
[2018-09-22] MEDS: Diphth,Pertuss(Acell),Tet Vac 0.5 ML Vial IM (20:58)
--- NOTE | 2018-09-22 22:17 | ED.VISSUMM ---
- ER Visit Summary Date of Service: 09/22/18 Chief Complaint: Head injury History of Present Illness: The patient is a 53 F who tripped in her kitchen and fell forward striking her head on the edge of the window sill. She denies loss of consciousness. She does feel that she has some pressure behind her right eye but has no vision change. She denies cervical tenderness. She does have a laceration noted to the lower right forehead, just above her eyebrow. Past history significant for coronary disease and nonischemic cardiomyopathy. She is on Plavix and aspirin. Physical Examination: Vital signs include blood pressure 158/85, otherwise unremarkable. Head neck examination was a 1.5 cm laceration on the right inferior forehead. Pupils are equal and reactive. Extraocular movements are intact. C-spine is nontender. Heart is regular rate and rhythm. Lungs sounds clear. Abdomen is soft nontender. Neuro exam reveals no deficits. Test Results: CT head shows no acute intracranial hemorrhage. There is right frontal/supraorbital soft tissue swelling with a small laceration. Emergency Department Course and Treatment: Patient is given Tylenol and Zofran. Tetanus update is provided. Let is applied to her laceration. This is followed by 2 cc of 1% lidocaine. Wound is cleansed and closed with 3 simple interrupted sutures of 6-0 nylon. Dressing is applied. Patient is to have sutures removed in 5-7 days. We discussed closed head injuries and concussions. Treatment Plan: [] Disposition: Discharge Impression: 1. Mechanical fall 2. Closed head injury 3. Facial laceration status post suture This note was generated with [employer] dictation software. It may contain incorrect words, spelling, and punctuation that were not noted in review of the chart prior to signing ED Disposition - Plan for ED Patient: Disposition: Home or Assisted Living Instructions: ED Head Injury Closed, ED Laceration Facial Sutr Tape Prescriptions: Ondansetron [Zofran Odt] 4 mg PO Q8H PRN PRN #10 tablet PRN Reason: Nausea Referrals: Allyn Kang [Primary Care Provider] - 7 Days for suture removal
[2018-09-22 22:22] VITALS: BP 158/94; PULSE 61; RESP 18; O2SAT 97; O2SAT 99
== END 2018-09-22 22:25 | disposition home or self-care (01) ==
PROVIDERS: Emergency Provider Emergency Medicine; Referring Provider Nurse Practitioner Family
DX: S01.81XA Laceration without foreign body of other part of head, initial encounter (principal); W01.0XXA Fall on same level from slipping, tripping and stumbling without subsequent striking against object, initial encounter; Y93.9 Activity, unspecified; Y92.000 Kitchen of unspecified non-institutional (private) residence as the place of occurrence of the external cause; I42.9 Cardiomyopathy, unspecified; I25.10 Atherosclerotic heart disease of native coronary artery without angina pectoris; E06.3 Autoimmune thyroiditis; Z79.82 Long term (current) use of aspirin; Z79.01 Long term (current) use of anticoagulants; Z79.899 Other long term (current) drug therapy
CPT/HCPCS: 12011; 70450; 90471; 90715; 99284

== ENCOUNTER → 2019-04-25 11:46 | Outpatient (CLI) | payer OTHER, SELFPAY ==
[2018-11-06 13:06] VITALS: BMI 42.6
[2019-04-25 13:30] LABS: BNP,B-Type NATRIURETIC PEPTIDE 36.5 pg/mL (0-100)
== END ==
LOC: LAB 11:50
PROVIDERS: Nurse Practitioner Family; Referring Provider Internal Medicine Cardiovascular Disease; Visit Provider Internal Medicine Cardiovascular Disease
DX: R06.02 Shortness of breath (principal)
CPT/HCPCS: 36415; 83880

== ENCOUNTER → 2019-05-22 08:55 | Outpatient (CLI) | payer OTHER, SELFPAY ==
[2019-05-02 09:29] VITALS: BMI 44.2
--- NOTE | 2019-05-22 08:58 | ECHOD_ITS ---
Reason For Study: Dyspnea/SOB Procedure This was a 2D Doppler, Color Flow transthoracic echocardiogram. Exam performed in department. Left Ventricle Normal size and thickness. The estimated ejection fraction is 60 %. Stage 1 diastolic dysfunction. No regional wall motion abnormalities noted. Right Ventricle Normal size and thickness. Normal systolic function. Atria Normal left atrium. Normal right atrium. Normal atrial septum. Mitral Valve The mitral valve is structurally normal. No prolapse or stenosis seen. Trivial mitral valve insufficiency. Tricuspid Valve Normal tricuspid valve. Unable to estimate RV systolic pressure due to insufficient tricuspid regurgitant envelope. Aortic Valve Normal aortic valve. Trisinus/trileaflet aortic valve. Pulmonic Valve Normal pulmonic valve. Great Vessels Normal aortic root. Normal arch. Normal inferior vena cava. Pericardium/Pleural No pericardial effusion. MMode/2D Measurements & Calculations LVIDd: 4.7 cm IVSd: 1.1 cm LA dimension: 4.5 cm LVIDs: 3.2 cm LVPWd: 1.2 cm RVDd: 3.3 cm FS: 31.8 % LAV(MOD-bp): 47.6 ml LA A4 area: 17.2 cm2 RA A4 area: 17.1 cm2 LAV(MOD-bp) Indexed: 23.1 ml/m2 LAV(MOD-sp2): 49.8 ml LAV(MOD-sp4): 45.6 ml Time Measurements MV dec time: 0.28 sec Doppler Measurements & Calculations MV E max nikhil: 79.6 cm/sec Lat Peak E' Nikhil: 7.2 cm/sec Med Peak E' Nikhil: 7.4 cm/sec MV A max nikhil: 93.7 cm/sec E/E' lat: 11.1 E/E' med: 10.8 MV E/A: 0.85 MV V2 max: 106.9 cm/sec MV P1/2t max nikhil: 85.7 cm/sec Ao V2 max: 150.2 cm/sec MV max P.6 mmHg MV P1/2t: 124.8 msec Ao max P.0 mmHg MV V2 mean: 58.3 cm/sec MV dec slope: 201.1 cm/sec2 Ao V2 mean: 93.5 cm/sec MV mean P.6 mmHg MVA(P1/2t): 1.8 cm2 Ao mean P.0 mmHg MV V2 VTI: 34.4 cm Ao V2 VTI: 32.8 cm LV V1 max: 102.7 cm/sec PA V2 max: 81.9 cm/sec LV V1 max P.2 mmHg LV V1 mean P.1 mmHg LV V1 mean: 67.4 cm/sec LV V1 VTI: 25.3 cm Interpretation Summary The estimated ejection fraction is 60 %. Stage 1 diastolic dysfunction. Trivial mitral valve insufficiency. Unable to estimate RV systolic pressure due to insufficient tricuspid regurgitant envelope. Compared to echo report dated 03/23/2018, LV function has improved from 45% to 60%. The study was technically difficult. Ordering Physician: Shaji Cary Referring Physician: Shaji Cary Performed By: Tushar Renee RCS
[2019-05-22 11:15] LABS: AST(SGOT) 14 U/L (15-37); Alanine Aminotransfer ALT/SGPT 23 U/L (13-56); Albumin, Serum 3.6 g/dL (3.2-5.0); Alkaline Phosphatase 89 U/L (45-117); Bilirubin, Direct 0.14 mg/dL (0.00-0.30); Cholesterol 161 mg/dL (200); Globulin 3.6 g/dL (2.2-4.2); High Density Lipoprotein 49 mg/dL; Protein, Total 7.2 g/dL (6.4-8.2); Triglycerides 134 mg/dL; Very Low Density Lipoprotein 27 mg/dL (5-40)
== END ==
PROVIDERS: Referring Provider Internal Medicine Cardiovascular Disease; Visit Provider Internal Medicine Cardiovascular Disease
DX: I25.10 Atherosclerotic heart disease of native coronary artery without angina pectoris (principal); I34.0 Nonrheumatic mitral (valve) insufficiency; I36.1 Nonrheumatic tricuspid (valve) insufficiency; I42.8 Other cardiomyopathies; I51.9 Heart disease, unspecified; E78.00 Pure hypercholesterolemia, unspecified; R06.02 Shortness of breath; R07.9 Chest pain, unspecified; Z95.5 Presence of coronary angioplasty implant and graft
CPT/HCPCS: 36415; 80061; 80076; 93306

== ENCOUNTER → 2019-06-05 10:06 | Outpatient (CLI) | payer OTHER, SELFPAY ==
[2019-05-02 09:29] VITALS: BMI 44.2
--- NOTE | 2019-06-05 10:10 | STE_ITS ---
Reason For Study: CAD, Chest Pain Stress Results Protocol: Krishna Protocol Maximum Predicted HR: 168 bpm Target HR: 143 bpm % Maximum Predicted HR: 85 % DurationHeart Rate Stage (mm:ss) (bpm) BP Comment Baseline 65 104/72No Chest Pain Krishna Protocol Stage I 3:00 88 126/70No Chest Pain Krishna Protocol Stage II 3:00 130 140/72No Chest Pain Krishna Protocol Stage III 1:15 142 / Mild Chest Pain; Mild Dyspnea Recovery 76 124/64No Chest Pain Stress Duration: 7:15 mm:ss Maximum Stress HR: 142 bpm METS: 10 Baseline Echocardiogram Findings The estimated ejection fraction is 65 %. Stress Echo Wall motion Data Resting WM Intermediate WM Stress WM Resting Wall Motion Wall Motion Stress No regional wall motion No regional wall motion abnormalities noted. abnormalities noted. EKG Data Normal intervals are noted. The patient exercised according to the regular Krishna protocol for a total duration of 7:15. The maximum heart rate attained was 155 beats per minute. This was 92% of maximum predicted heart rate. The patient exercised into stage 3 of the Krishna protocol. During stress, there were no ST or T wave changes noted to suggest ischemia. Interpretation Summary The estimated ejection fraction is 65 %. Normal, adequate, treadmill echocardiogram. Negative for ischemia by EKG and echocardiographic criteria. Patient developed anginal type chest pain at peak exercise with no associated wall motion abnormalities. Rare PVC noted. Appropriate blood pressure response to exercise. Average exercise capacity for age. Final LVEF of 75%. Test terminated due to attainment of target heart rate, sciatica pain and chest pain. No complications. Ordering Physician: Shaji Cary Referring Physician: Allyn [facility] Performed By: Kayleen Coulter, ALESSIOCS, RVT
== END ==
LOC: CVS 10:08
PROVIDERS: Referring Provider Internal Medicine Cardiovascular Disease; Visit Provider Internal Medicine Cardiovascular Disease
DX: R07.9 Chest pain, unspecified (principal); R06.02 Shortness of breath; Z95.5 Presence of coronary angioplasty implant and graft; I25.10 Atherosclerotic heart disease of native coronary artery without angina pectoris
CPT/HCPCS: 93017; 93350

== ENCOUNTER 2019-06-26 07:08 | Day surgery (SDC) | payer OTHER, SELFPAY ==
[2019-05-02 09:29] VITALS: BMI 44.2
[2019-06-19 12:35] LABS: Hematocrit 39.1 % (37-47); Hemoglobin 12.4 g/dL (12.0-15.0); Mean Corp Hgb Conc 31.7 g/dL (32-36); Mean Corpuscular Hgb 29.2 pg (27.0-32.0); Mean Corpuscular Volume 92.2 fL (81-99); Mean Platelet Vol. 10.1 fl (6.2-12.0); Platelet Count 259 K/mm3 (150-450); RBC Distribution Width CV 13.6 % (11.6-14.6); RBC Distribution Width SD 46.2 fl (35.1-43.9); Red Blood Count 4.24 M/mm3 (4.2-5.4); White Blood Count 7.5 K/mm3 (4.4-11.0)
[2019-06-19 12:42] LABS: Prothrombin Time (Protime)PT. 13.2 SECONDS (11.7-14.9)
[2019-06-19 12:43] LABS: Partial Thromboplast Time 26.4 Seconds (24.1-36.2)
[2019-06-19 13:00] LABS: Anion Gap 5 (5-15); BUN 16 mg/dL (7-18); BUN/Creat Ratio 20.9 RATIO (10-20); Calcium,Total 8.9 mg/dL (8.5-10.1); Chloride 105 mmol/L (98-107); Creatinine, Serum 0.77 mg/dL (0.55-1.02); EST Glomerular Filtration Rate 84 mL/min (>60); Est Glom Filt Rate - Afr Amer 101 mL/min (>60); Glucose 90 mg/dL (74-106); Potassium 3.8 mmol/L (3.5-5.1); Sodium Level 137 mmol/L (136-145)
[2019-06-25 10:41] VITALS: BMI 44.2
--- NOTE | 2019-06-25 16:35 | RAD_ITS ---
STUDY: X-RAY CHEST REASON FOR EXAM: Female, 53 years old. Chest pain TECHNIQUE: Frontal view of the chest COMPARISON: X-ray chest April 03, 2018 FINDINGS: The lungs are clear. There are no pleural effusions. There is no pneumothorax. The heart is normal in size. The visualized osseous structures are within normal limits. RAD/Chest PA and Lateral IMPRESSION: No acute thoracic pathology. Electronically Signed: Marcel Pandey, at 17:05 EST Tel , Service support ,
[2019-06-26 08:26] LABS: Internal QC Validated? YES +Cl - CLEAR BKGD; Pregnancy, Serum, hCG Quali. NEGATIVE Negative
--- NOTE | 2019-06-26 08:45 | HP.PCM_ITS ---
History and Physical Date of Admission: 06/26/19 History of Present Illness Details: MIAN WOLFE, is a 53 F who presents to the catheterization lab today for a heart catheterization. She has a history of iron deficiency anemia, hypothyroidism, vitiligo, Alban's disease, peripartum cardiomyopathy, and coronary artery disease status post FFR evaluation and angioplasty and drug- eluting stent placement to proximal LAD on 04/19/2018. Patient was evaluated in office on 05/02/2019 and noted to have dyspnea on exertion and chest discomfort. She underwent an echocardiogram on 05/22/2019 that showed ejection fraction of 60% and no regional wall motion abnormalities. She underwent a stress echocardiogram on 06/05/2019 that was negative for i schemia, but patient was noted to have chest discomfort at peak exertion. Because of her chest discomfort and previous history, it was recommended she undergo a left heart catheterization for further evaluation. She denies chest, arm, jaw, or neck discomfort. Her exercise tolerance is stable. She denies symptoms of CHF, palpitations, lightheadedness, dizziness, near syncope, or syncopal episodes. She denies edema or claudication issues. She denies orthopnea, PND, fever, chills, blood in urine, blood in stool, myalgia, or unexplainable fatigue. Patient was evaluated prior to heart catheterization. Intake Vital Signs: See EMR Intake Visit Reasons: [facility] Allergies Sulfa (Sulfonamide Antibiotics) Allergy (Verified 05/01/19 19:47) Hives rosuvastatin [From Crestor] Adverse Reaction (Severe, Verified 05/01/19 19:47) Lymphadenopathy, edema, hyperthyroid atorvastatin [From Lipitor] Adverse Reaction (Intermediate, Verified 05/01/19 19:47) Muscle aches/myalgias Medications Ferrous Sulfate [Iron] 650 mg PO DAILY 12/30/16 [History Confirmed 05/01/19] escitalopram 20 mg tablet 20 mg PO DAILY 04/03/18 [History Confirmed 05/01/19] cholecalciferol (vitamin D3) 2,000 unit tablet 2,000 unit PO DAILY 05/18/18 [History Confirmed 05/01/19] levothyroxine 125 mcg capsule 125 mcg PO DAILY 06/11/18 [History Confirmed 05/01/19] liothyronine 5 mcg tablet 5 mcg PO .COMPLEX 06/11/18 [History Confirmed 05/01/19] Amoxicillin/Potassium Clav [Amox-Clav 875-125 mg Tablet] 1 tab PO TID 09/22/18 [History Confirmed 05/01/19] Ondansetron [Zofran Odt] 4 mg PO Q8H PRN PRN #10 tab 09/22/18 [Rx Confirmed ] aspirin 81 mg tablet,delayed release 81 mg PO DAILY #30 tab 05/02/19 [Rx Confirmed 05/02/19] clopidogrel 75 mg tablet 75 mg PO DAILY #30 tab 05/02/19 [Rx Confirmed 05/02/19] metoprolol tartrate 25 mg tablet 12.5 mg PO BID #30 tab 05/02/19 [Rx Confirmed 05/02/19] PFSH Medical History Pure hypercholesterolemia (Chronic) Atherosclerosis of [place] coronary artery of [place] heart without angina pectoris (Chronic) Atherosclerosis of coronary artery (Chronic 04/19/18) Shortness of breath (Acute) Chest pain (Acute) Abnormal echocardiogram (Chronic 03/23/18) Nonrheumatic mitral (valve) insufficiency (Chronic) Nonrheumatic tricuspid (valve) insufficiency (Chronic) Nonischemic cardiomyopathy (Chronic) Left ventricular dysfunction (Chronic) Vitiligo (Chronic) Hypothyroidism (Chronic) Alban's disease (Chronic) Surgical History History of left heart catheterization (Chronic) Stented coronary artery (Chronic 04/19/18) History of cholecystectomy (Chronic) Family History Father CAD (coronary artery disease) Diabetes Dementia Mother CAD (coronary artery disease) Hypertension Sister Diabetes Type II Sister Diabetes Type II Social History (Updated 05/02/19 @ 09:50 by Shaji Cary MD) Smoking Status: Never smoker ROS Const Const: Positive for other (Has had increased ME[employer], switched jobs d/t this. Has a cough.); negative for fatigue, weakness, body ache, fever(s), headache(s), chills, frequent falls, night sweats, daytime sleepiness, difficulty sleeping, excessive sweating, weight gain, weight loss, increased appetite, poor appetite or anorexia Eyes Eyes: Negative for blind spots, loss of peripheral vision, transient loss of vision, blurry vision, change in vision, double vision, floaters, tunnel vision or other ENT ENT: Negative for headache(s), dizziness, hearing loss, tinnitus, Nosebleed/epistaxis, balance problems, post nasal drip, lip swelling, tongue swelling, bleeding gums, hoarseness, neck pain, dry mouth or other Cardio Chest Pain: Yes (Sometimes in evenings, not as bad as before stent.) Frequency: daily Character: other (heaviness) Onset: at rest Location: mid sternal Duration: brief (seconds) Exacerbation: other (spontaneous) Relieving: other (spontaneous) Palpitations: No Edema: None Muscle aches with walking: None Resp Respiratory: Positive for SOB with activity (dyspnea with minimal exertion), Cough (frequent dry cough, but coughs until vomits sometimes) and wheezing; negative for SOB at rest, SOB orthopnea\SOB lying down, Coughing up blood/hemoptysis, chest congestion, pain on inspiration, snoring, stridor, crackles, paroxysmal nocturnal dyspnea or other GI GI: Negative nausea, vomiting, heartburn, constipation, belching, bloating, cramping, vomiting blood/hematemesis, bright, red blood in stools, black,tarry stools, loose stools, Difficulty Swallowing or other : Negative for hematuria, frequent nighttime urination/ nocturia, erectile dysfunction or abnormal vaginal bleeding Musc Musc: Negative for muscle aches/ myalgia, muscle weakness, joint pain or balance problems Skin Skin: Negative redness, non-healing lesions, rash, unusual bruising, skin ulcer, wounds, jaundice or other Neuro Neuro: Negative for dizziness, lightheadedness, near syncope, syncope, orthostatic symptoms, frequent falls, headache(s), weakness, confusion, memory loss, restless legs, blurry vision, double vision, vertigo, seizures, lack of coordination or other Jluis Hematologic/Lymphatic: Negative for easy bleeding, easy bruising, enlarged lymph nodes or other Endo Endo: Negative for fatigue, cold intolerance, heat intolerance, excessive sweating, flushing, increased thirst/drinking, increased hunger, hair loss, hair growth or other Psych Psych: Negative for anxiety, depression, thoughts of harming anyone, thoughts of harming yourself, visual hallucinations, panic attacks or audible hallucinations Allergy Allergy/Immunology: Negative for throat swelling, Negative for tongue swelling, Negative for hives, Negative for rash, Negative for lip swelling Cardiology Exam Const Appearance: cooperative, healthy appearing and no acute distress Nutritional Appearance: well nourished Orientation: alert, oriented x3 and oriented to person Head Head: normal to inspection, normocephalic and atraumatic Nose: external nose normal Face and Sinus: face symmetric Mouth: oral mucosae normal Eyes General: appearance normal, both eyes and all related structures Eyelids: eyelids normal Conjunctivae: conjunctivae normal Pupils: PERRL and normal by confrontation EOM: EOM intact bilaterally Neck Neck: normal visual inspection and full ROM Carotids: normal carotid upstroke Chest Chest inspection: normal inspection of the chest Auscultation: Bilateral: Clear to Auscultation Cardio Palpation: normal PMI Rate: regular rate Rhythm: regular rhythm Heart sounds: S1 normal and S2 normal GI GI: normal to inspection, no hepatosplenomegaly and bowel sounds present Neuro General: alert, awake, oriented x3, CN's II-XI intact bilaterally and moves all extremities Skin Skin: no rashes or lesions noted Extremities Pulses: Normal: Right Femoral Pulse, Left Femoral Pulse, Right Dorsalis Pedis Pulse, Left Dorsalis Pedis Pulse, Right Posterior Tibial Pulse, Left Posterior Tibial Pulse, Right Radial Pulse, Left Radial Pulse Lower Extremity Edema: None: Bilateral Psych Psychological: normal affect Assessment & Plan 1. Atherosclerosis of [place] coronary artery of [place] heart without angina pectoris I25.10 3.0 x 28 Promus Synergy to proximal LAD in April 2018; Plan 1. Coronary artery disease: She will proceed with left heart catheterization for further evaluation. Based on results, further recommendation be made. 2. Pure hypercholesterolemia E78.00 Plan 2. Hypercholesterolemia: Unfortunately the patient is unable to take statins due to myalgias. Repeat lipids are pending. Patient may benefit from gemfibrozil in place of statins. 3. Shortness of breath R06.02 Plan 3. Shortness of breath: She does acknowledge some improvement in her shortness of breath since adjusting her Coreg to metoprolol. She will proceed with a heart catheterization to further evaluate coronary artery disease component. Her echocardiogram in May 2019 showed ejection fraction of 60%, stage I [place] tolic dysfunction, and trivial mitral valve insufficiency. Thank you for allowing us to participate in the patients plan of care, if you have any questions please do not hesitate to call. This note was generated using a voice recognition system and there may be incorrect words, spelling or punctuation that were not noted when reviewing the office note prior to saving. Supplemental Info Supplemental Information Stress echocardiogram from 06/05/2019: Interpretation Summary The estimated ejection fraction is 65 %. Normal, adequate, treadmill echocardiogram. Negative for ischemia by EKG and echocardiographic criteria. Patient developed anginal type chest pain at peak exercise with no associated wall motion abnormalities. Rare PVC noted. Appropriate blood pressure response to exercise. Average exercise capacity for age. Final LVEF of 75%. Test terminated due to attainment of target heart rate, sciatica pain and chest pain. No complications. Echocardiogram from 05/22/2019: Interpretation Summary The estimated ejection fraction is 60 %. Stage 1 diastolic dysfunction. Trivial mitral valve insufficiency. Unable to estimate RV systolic pressure due to insufficient tricuspid regurgitant envelope. Compared to echo report dated 03/23/2018, LV function has improved from 45% to 60%. The study was technically difficult. Heart catheterization from 04/19/2018: CONCLUSIONS Global LV systolic dysfunction- Mild Single vessel CAD of the LAD Non obstructive coronary arteries Successful PTCA/BLANCO of the of proximal LAD after FFR eval showed 0.84. Pt received a 3.0 x 28 PromIninal Synergy stent with primary deployment and had exact same anginal symptoms with balloon inflation. 75%-->0%, no dissection. RECOMMENDATIONS Staged for FFR Highly recommend quitting all tobacco products Follow up with primary beverage host Risk factor modification ASA Indefinitley Plavix for at least 12 months Routine post interventional care Refer for Outpatient Cardiac Rehab Manual sheath removal per protocol Follow up with Dr. Cary Successful Mynx closure of RFA. Sleep study eval in 2 weeks. CORONARY ANGIOGRAPHY DOMINANCE: Co- Dominant LEFT HEART ASSESSMENT Left Ventricular Ejection Fraction: by LV Gram 40-45% Depressed Left Ventricular systolic function LVEDP: 12 mmHg Global Hypokinesis - Mild to moderate LEFT MAIN: Angiographically normal LEFT ANTERIOR DESCENDING ARTERY: MID LAD: 75 % Stenosis CIRCUMFLEX ARTERY: Angiographically normal RIGHT CORONARY ARTERY: MID RCA: Mild luminal irregularities less than 30% Labs LDL Cholesterol 52 mg/dL (0-130) 06/08/18 HDL Cholesterol 37 mg/dL (40-) L 06/08/18 Triglycerides 153 mg/dL (-199) 06/08/18 VLDL Cholesterol 31 mg/dL (5-40) 06/08/18 Diagnostics Electrocardiogram 04/20/18 Echocardiogram 03/23/18 Stress Echocardiogram 04/12/18 Chest X-Ray 04/03/18
--- NOTE | 2019-06-26 10:06 | CL.D_ITS ---
Patient Name: MIAN WOLFE Study Date: 06/26/2019 Performing: Shaji Cary MD Ht: 61.81 inches 157 cm : 1965 Wt: 242.51 lbs 110 kg Age: 53 Gender: female BSA: 2.07 PROCEDURE(S) PERFORMED [id number]/LV CLINICAL PROFILE AND INDICATIONS Indications: New Onset Angina <= 2 months, Stable Known CAD Heart Failure: None Stress/Imaging Date: 05/22/2019Stress Echocardiogram: Indeterminant Angina Classification Anginal Classification w/in 2 Weeks: CCS II CAD Presentations: Unstable angina. Other: Dyspnea on exertion and fatigue Comorbidities/Risk Factors: Hypertension Dyslipidemia Prior PCI CONCLUSIONS Normal LV size, wall motion,and systolic function Widely patent LAD stent with angiographically normal LCX and RCA. RECOMMENDATIONS Start hyzaar 25/12.5mg daily. Management as per referring [employer] Manual sheath removal. DESCRIPTION OF PROCEDURE The patient arrived to the procedure lab. The risks and benefits of the procedure as well as a full d escription of our services here and current unavailability of surgical backup were fully explained to the patient and/or their significant other prior to the catheterization. The Timeout was completed, verifying the correct patient and procedure. The patient's procedural site was prepped and draped in the usual fashion. Local anesthetic was given subcutaneously to right groin region with Lidocaine 2%. Using a modified Seldinger technique, arterial access was obtained via the right femoral artery, a 4 Fr sheath was inserted Left Coronary Artery selective angiography was performed in multiple views us ing a 4 Fr. JL5 catheter. Right Coronary Artery selective angiography was then performed in multiple views using a 4 Fr. 3DRC catheter. Left Ventriculography was performed in BARROSO projection using a 4 Fr . Pigtail catheter. LV to AO pullback pressures were then recorded.The arterial sheath was pulled and manual compression applied until hemostasis is achieved. CORONARY ANGIOGRAPHY DOMINANCE: Co- Dominant LEFT HEART ASSESSMENT Left Ventricular Ejection Fraction: by LV Gram 65 % Normal LV wall motion Normal Left Ventricular systolic function LVEDP: 15 mmHg LEFT ANTERIOR DESCENDING ARTERY: MID LAD: Previously placed stent is patent CIRCUMFLEX ARTERY: Angiographically normal RIGHT CORONARY ARTERY: Angiographically normal COMPLICATIONS No Complications PROCEDURE MEDICATIONS Versed 1 mg IV Oxygen: 2 L/min via nasal cannula Nitro 200 mcg IC 06/26/2019 09:55:12 SUMMARY OF HEMODYNAMIC DATA Time AIR REST ECG 07:39:24 ECG 08:38:43 AO 161/81 (111) SA 09:48:40 LV 166/-1, 18 09:54:41 LV 161/-1, 15 09:54:50 LVp 161/-2, 17 09:54:55 AOp 167/84 (118) 09:55:00 AOp 129/69 (92) 09:56:21 Signed By Shaji Cary MD On 06/26/2019 10:05:35 AM Shaji Cary MD
== END 2019-06-26 14:36 | disposition home or self-care (01) ==
LOC: CLSP 07:10
PROVIDERS: Referring Provider Internal Medicine Cardiovascular Disease; Visit Provider Internal Medicine Cardiovascular Disease
DX: I25.110 Atherosclerotic heart disease of native coronary artery with unstable angina pectoris (principal); I10 Essential (primary) hypertension; E78.00 Pure hypercholesterolemia, unspecified; R06.02 Shortness of breath; I34.0 Nonrheumatic mitral (valve) insufficiency; I36.1 Nonrheumatic tricuspid (valve) insufficiency; I42.8 Other cardiomyopathies; E03.9 Hypothyroidism, unspecified; E06.3 Autoimmune thyroiditis; Z79.82 Long term (current) use of aspirin; D50.9 Iron deficiency anemia, unspecified; Z95.5 Presence of coronary angioplasty implant and graft
CPT/HCPCS: 36415; 71046; 80048; 84703; 85027; 85610; 85730; 93458; 99152; J7040; C1769; C1894; Q9967

== ENCOUNTER → 2019-08-21 20:05 | Outpatient (CLI) | payer OTHER, SELFPAY ==
[2019-06-25 10:41] VITALS: BMI 44.2
== END ==
LOC: SL 23:16
PROVIDERS: PCP Nurse Practitioner Family; Referring Provider Nurse Practitioner Family; Visit Provider Nurse Practitioner Family
DX: G47.10 Hypersomnia, unspecified (principal); R06.83 Snoring; I25.10 Atherosclerotic heart disease of native coronary artery without angina pectoris; R06.02 Shortness of breath; E06.3 Autoimmune thyroiditis
CPT/HCPCS: 95810

== ENCOUNTER → 2019-10-12 13:37 | Outpatient (CLI) | payer OTHER, SELFPAY ==
[2019-09-04 10:37] VITALS: BMI 43.7
--- NOTE | 2019-10-12 13:43 | RAD_ITS ---
STUDY: X-RAY - RIGHT KNEE REASON FOR EXAM: Female, 54 years old. KNEE PAIN, NO TRAUMA TECHNIQUE: Check for view(s) of the knee. COMPARISON: None. FINDINGS: Normal visualized distal femur. Normal visualized proximal tibia and fibula. Normal proximal tibiofibular articulation. Normal medial femorotibial compartment. Normal lateral femorotibial compartment. There is moderate degenerative arthrosis of the patellofemoral articulation. There is a soft tissue prominence in the suprapatellar region suggesting a small volume joint effusion. The soft tissue structures are unremarkable. RAD/Knee 4 or More Views IMPRESSION: Moderate patellofemoral joint arthrosis. Electronically Signed: Abel Azul MD (Brooks) at 15:11 EDT , Service support ,
== END ==
LOC: RAD 13:39
PROVIDERS: PCP Nurse Practitioner Family; Visit Provider Nurse Practitioner Family
DX: M17.11 Unilateral primary osteoarthritis, right knee (principal)
CPT/HCPCS: 73564

== ENCOUNTER 2020-01-30 10:00 | Outpatient (RCR) | payer OTHER, SELFPAY ==
[2019-12-24 08:36] VITALS: BMI 43.1
--- NOTE | 2019-12-27 08:48 | HP.PTEVAL_ITS ---
Patient's Visit Information MIAN WOLFE is a 54 year old F referred to Physical Therapy by Dr. Janette Calixto DO with a diagnosis of Internal derrangement of R knee. Date of Evaluation: 12/26/19 Physical Therapist: Will Bustamante DPT - Visit Plan Frequency: 2-3x /Week Duration: 6 Weeks Plan: Start with modalities to calm pain. Use of US and/or IFC. Add in progression of non painful ROM, focus on extension. Add in HS and quad stretching (Rubio stretch). Initial open chain isometrics. progressing as tolerated Avoid step ups and squating, until non painful. - Subjective Pt. is here today for her initial evaluation with diagnosis of internal derrangement of R knee. Pt. reports having increased pain for several months, maybe a year. pt. reports initially falling while at work, tripped over a computer cord. Pt. reports having pain in her knee since. Pt. had been maneging, but got to a point where she was limping with all gait. Pt. did she her ortho who did an injection yesterday which has helped so far. Pt. reports that her limping has improved. Pt. 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 Pt. is hopeful get back to all recreational activities without limitations. - Pain R knee Pain Intensity (Out of 10): 2 Pain Intensity Range: 1, 7 - Objective POSTURE: Pt. tends to keep her Rknee slightly bent in stance. Pt. has slight wt. shift to L side. PALPATION: Pt. has increased pain at medial joint line. No patellar pain, no patellar tendon pain. Pt. has no lateral joint line pain and no post knee pain. NEURO: Normal sensation and normal DTR of bilateral LEs. ROM: R knee AROM 0-5-128deg. PROM 0-0-130deg. Pt. has increased pain at medial joint line with progressing further into extension. Pt. tends to lie with hip ER to avoid TKE. MMT: LLE- 5/5 throughout; except hip flexion, abd, ext 4/5. RLE- ankle 5/5 throughout; knee- ext 4+/5 increas NE, flexion 4+/5, increase NW. Hip- flexion 4/5, abd 4/5, ext- 4+/5. GAIT: Pt. ambulates with slight antalgic pattern. Pt. has increased pain during R stance phase. Pt. tends to avoing TKE and has reduced knee flexion during swing phase of RLE. STAIRS: Pt. is very hesitent to attempt. Pt. is able to complete with loading LLE only. - Goals Goal 1:: LTG: Pt. to be I with HEP. Goal Time Frame: 4-6 Weeks Goal 2:: STG: Pt. to walk community levels distances with normal patten with out increase in symptoms. Goal Time Frame: 2-4 Weeks Goal 3:: STG: Pt. to have R knee ROM increase to 0-0-130deg without increase in symptoms. Goal Time Frame: 2-4 Weeks Goal 4:: LTG: Pt. to have increased strength of R LE by 1/2 grade throughout. Goal Time Frame: 4-6 Weeks Goal 5:: LTG: Pt. to negotiate steps with 1 HR with reciprocal pattern with 0- 2/10 pain. Goal Time Frame: 4-6 Weeks - Rehabilitation Potential Physical Therapy Diagnosis: Pt. has signs and symptoms consistent with R knee derangement, most likely medial meniscus involvement. Pt. is lacking ROM, mostly into extension and worse with loading. Pt. would benefit from PT to calm her symptoms, progress into greater ROM and work on stabilzing around her knee joint to reduce stress to this area with all functional mobility. Rehabilitation Potential: Good - Anticipated Interventions Patient/Client Instruction: Educate patient on: Condition, Plan of Care, Risk Factors, Benefits of Fitness Program For the Purpose of:: To improve health and function, To foster healthy habits, To improve decision making, To facilitate caregiver knowledge, To improve self management, To prevent re-injury, To improve ability to perform tasks related to life management, To improve tolerance to ADL's Therapeutic Exercise to Include: Strength training, Power training, Endurance training, Balance training, Postural training, Flexibilty training, Gait and locomotor training, Passive ROM, Active ROM For the Purpose of:: To decrease pain, To decrease swelling/inflammation, To increase ROM, To improve nutrient delivery to tissue, To increase oxygenation perfusion, To improve muscle performance and motor function, To improve ability to perform ADL's, To increase tolerance to activity/condition/position, To improve health of tissue, To decrease soft tissue restriction, To increase flexibility/ROM Manual Therapy Techniques to Include: Mobilization, Passive ROM, Soft tissue mobilization For the Purpose of:: To decrease pain, To decrease swelling/inflammation, To increase ROM IF ES: Yes Cryotherapy (ice pack, ice massage): Yes Ultrasound (thermal/non thermal): Yes For the Purpose of:: To decrease pain, To decrease swelling/inflammation, To increase ROM, To improve nutrient delivery to tissue, To increase oxygenation perfusion, To improve muscle performance and motor function, To improve ability to perform ADL's Thank you for the opportunity to evaluate your patient. For Medicare and Medicare HMO plans, please review the plan of care and approve it. It will need to be FAXED BACK to us at [phone] for Medicare purposes. For Medicare only, by signing this I certify the plan of care. Please let me know if there are questions or concerns regarding this plan of care. Physician Signature: Date:
== END 2020-01-30 19:00 | disposition home or self-care (01) ==
LOC: PT 10:00
PROVIDERS: PCP Nurse Practitioner Family; Referring Provider Orthopaedic Surgery; Visit Provider Orthopaedic Surgery
DX: M23.91 Unspecified internal derangement of right knee (principal)
CPT/HCPCS: 97016; 97035; 97110; 97161

== ENCOUNTER → 2020-02-19 13:07 | Outpatient (CLI) | payer OTHER, SELFPAY ==
[2020-02-11 08:16] VITALS: BMI 43.1
--- NOTE | 2020-02-19 13:08 | MRI_ITS ---
STUDY: MRI RIGHT KNEE REASON FOR EXAM: Medial pain and instability of right knee. TECHNIQUE: Standardized fat and water weighted pulse sequences were obtained in all 3 orthogonal planes. COMPARISON: Radiographs 10/12/2019. FINDINGS: There is peripheral subluxation of the medial meniscus without discrete medial meniscal tear. There is mild arthrosis of the medial femorotibial compartment with very small marginal osteophytes and mild chondral irregularity (T2 sagittal image 16). Normal medial femoral condyle and tibial plateau. There is mild periligamentous inflammation of the medial collateral ligament (T2 coronal image 17). Normal distal semimembranosus, gracilis and semitendinosus tendons. Normal lateral meniscus. Normal hyaline cartilage of the lateral femorotibial compartment. Normal lateral femoral condyle and tibial plateau. Normal proximal tibiofibular articulation. Normal lateral collateral (fibular) ligament. Normal popliteus tendon. Normal biceps femoris tendon. Normal anterior cruciate ligament (ACL). Normal posterior cruciate ligament (PCL). Normal congruent patellofemoral articulation. There is arthrosis of the patellofemoral compartment with partial-thickness chondral loss (T2 sagittal image 12). Normal medial and lateral patellar retinaculum. Normal quadriceps tendon. Normal patellar tendon. Normal Hoffa''s fat pad. There is a small joint effusion. There is a thickened medial patellar plica (T2 axial images 12, 13). There is edema in the anterior subcutis adipose space. The otherwise visualized osseous structures are unremarkable. MRI/Lower Ext Joint Only (Routine) IMPRESSION: Patellofemoral arthrosis. Mild arthrosis of the medial femorotibial compartment. Thickened medial patellar plica. Mild periligamentous inflammation of the medial collateral ligament. Peripheral subluxation of the medial meniscus without demonstrated medial meniscal tear. Small joint effusion. Electronically Signed: Juan Alberto Rubio MD at 15:01 EDT Tel , Service support ,
== END ==
LOC: MRI 13:08
PROVIDERS: Referring Provider Physician Assistant; Visit Provider Physician Assistant
DX: M23.91 Unspecified internal derangement of right knee (principal); M17.11 Unilateral primary osteoarthritis, right knee
CPT/HCPCS: 73721

== ENCOUNTER → 2021-03-19 11:03 | Outpatient (CLI) | payer OTHER, MEDICAID, SELFPAY ==
[2021-03-11 17:19] VITALS: BMI 43.0
[2021-03-19 12:28] LABS: Erythrocyte Sedimentation Rate 26 mm/hr (0-30)
[2021-03-19 12:31] LABS: Absolute Lymphocyte Count 2.26 X10^3/uL (0.83-4.51); Absolute Neutrophil Count 4.8 X10^3/uL (2.0-7.7); Basophil# 0.06 X10^3/uL; Basophil% 0.7 % (0-1); Eosinophil# 0.29 X10^3/uL; Eosinophils% 3.6 % (0-5); Hematocrit 41.3 % (37-47); Hemoglobin 13.2 g/dL (12.0-15.0); Lymphocyte # 2.26 X10^3/ul (0.83-4.51); Lymphocyte % 27.9 % (19-41); Mean Corpuscular Hgb 29.5 pg (27.0-32.0); Mean Corpuscular Volume 92.4 fL (81-99); Mean Platelet Vol. 10.5 fl (6.2-12.0); Monocyte% 7.4 % (0-10); NRBC Flagged by Analyzer 0 % (0-5); Neutrophil # 4.84 X10^3/uL (2.7-7.7); Neutrophil % 59.7 % (47-70); Platelet Count 324 K/mm3 (150-450); RBC Distribution Width CV 13.8 % (11.6-14.6); RBC Distribution Width SD 47.6 fl (35.1-43.9); Red Blood Count 4.47 M/mm3 (4.2-5.4); White Blood Count 8.1 K/mm3 (4.4-11.0)
[2021-03-19 12:57] LABS: AST(SGOT) 15 U/L (15-37); Alanine Aminotransfer ALT/SGPT 24 U/L (13-56); Albumin, Serum 3.7 g/dL (3.2-5.0); Alkaline Phosphatase 94 U/L (45-117); Anion Gap 9 (5-15); BUN 16 mg/dL (7-18); Calcium,Total 8.9 mg/dL (8.5-10.1); Chloride 105 mmol/L (98-107); Cholesterol 189 mg/dL (200); Creatinine, Serum 0.73 mg/dL (0.55-1.02); EST Glomerular Filtration Rate 88 mL/min (>60); Est Glom Filt Rate - Afr Amer 107 mL/min (>60); Globulin 3.6 g/dL (2.2-4.2); Glucose 138 mg/dL (74-106); High Density Lipoprotein 48 mg/dL; Potassium 3.9 mmol/L (3.5-5.1); Protein, Total 7.3 g/dL (6.4-8.2); Rheumatoid Factor < 10.0 IU/mL (<15); Sodium Level 138 mmol/L (136-145); Thyroid Stim Hormone (TSH) 1.71 uIU/mL (0.358-3.74); Triglycerides 115 mg/dL; Very Low Density Lipoprotein 23 mg/dL (5-40)
[2021-03-21 08:00] LABS: ANTINUCLEAR ANTIBODIES DIRECT Negative (Negative)
[2021-03-24 11:29] LABS: CCP IgG Antibodies 6 units (0-19)
== END ==
PROVIDERS: PCP Internal Medicine; Referring Provider Internal Medicine; Visit Provider Internal Medicine
DX: I10 Essential (primary) hypertension (principal); E03.9 Hypothyroidism, unspecified; M19.90 Unspecified osteoarthritis, unspecified site
CPT/HCPCS: 36415; 80053; 80061; 84443; 85025; 85652; 86038; 86200; 86225; 86235; 86431

== ENCOUNTER → 2021-05-04 16:44 | Outpatient (CLI) | payer MEDICAID, SELFPAY ==
--- NOTE | 2021-05-04 16:45 | CT_ITS ---
STUDY: CT LEFT SHOULDER REASON FOR EXAM: Female, 55 years old. FALL, LT SHOULDER PAIN, HX ARTHRITIS RADIATION DOSAGE (If Supplied By Facility): CTDIvol = ( 40.86 ) mGy, DLP = ( 850.01 ) mGycm TECHNIQUE: The patient was scanned in a multi detector CT scanner. High resolution transaxial imaging was performed without the administration of intravenous contrast material. Sagittal and coronal images were reconstructed. Individualized dose optimization techniques were used for this CT. COMPARISON: Left shoulder x-ray dated April 26, 2021 FINDINGS: There is moderate narrowing of the glenohumeral articulation. Bulky osteophyte formation is present at the medial aspect of the humeral head. Mild cortical spurring is present at the periphery of the glenoid. No fracture is present. Normal visualized scapula. Normal coracoid process. Normal visualized lateral clavicle. Normal acromioclavicular articulation. There is a Type II morphology (curved), with a neutral orientation. Normal visualized muscles and soft tissue structures. CT/Extremity Upper without Contra IMPRESSION: 1. Moderate DJD of the shoulder joint Electronically Signed: Jarad Basurto MD at 18:14 EDT , Service support ,
== END ==
PROVIDERS: PCP Internal Medicine; Referring Provider Physician Assistant; Visit Provider Physician Assistant
DX: S49.92XA Unspecified injury of left shoulder and upper arm, initial encounter (principal); W19.XXXA Unspecified fall, initial encounter; M19.012 Primary osteoarthritis, left shoulder
CPT/HCPCS: 73200

== ENCOUNTER 2021-06-04 09:30 | Outpatient (RCR) | payer MEDICAID, SELFPAY ==
--- NOTE | 2021-05-18 10:29 | HP.PTEVAL_ITS ---
Patient's Visit Information MIAN WOLFE is a 55 year old F referred to Physical Therapy by KAREN Hodges with a diagnosis of L cervical spine pain with radic and L shoulder pain. Date of Evaluation: 05/18/21 Physical Therapist: DHIRAJ Metz - Visit Plan Frequency: 2x /Week Duration: 4 Weeks Plan: Pt has increase L arm symptoms with supine and sitting chin tucks and pt is very hyper sensitive over anterior L shoulder and posterior should/ mid tap area. For the first 2-3 visit do postural and scapular exercises and US to the L ant/post shoulder. If able then proceed to strengthening of the RC along with continuation of scapular strength with HEP. HEP: orange T-band mid rows and scapular squeezes - Subjective Pt has numbness and pain on the L from her shoulder all the way down and hard to sleep. It does not limit her from doing anything but it is painful. It feels out of joint and the x-ray and cat scan showed that everything was in place. She had an accident and fell and tried to catch herself about a month ago. She was told that the cat scan was completely normal. The Dr thinks that it is coming from neck and spine area. It has been hurting since the fall. Insurance wants PT first before MRI. She moderate spine, neck and leg arthritis. She gets shots in her knees for OA. She does wake up in pain in the middle of night when she rolls over. It is better to sleep on the L side. If she has support under her shoulder then the shoulder feels better. She does not feel that her L shoulder is weak just a dull pain and numb. - Pain Neck pain Pain Intensity (Out of 10): 2 L shoulder pain Pain Intensity (Out of 10): 6 - Objective R handed: R 45# and L 26#. C-spine AROM: flex 100%, Ext 25%, Rot L 75%, Rot R 90%, SB L (increase pain 50%) and SB R 75%. Sensation is intact B UE's. Bicep DTR's 2+/3 B. B UE AROM: WFL B. R shld MMT: 3+/5 flex and abd due to pain and weakness, 3-/5 ER and IR. Pt fingers tingle and hand will go numb on the L. Sitting and supine chin tucks X 10 made her L arm go numb... laying supine still the L arm numbness started to subside and then put a towel roll under the L shoulder and under the head and the numbness continued to subside to just slight. Supine chin tucks with rolled towel roll twice under head and started to immed go numb and tingling again. Palpation: tender anterior under the L anterior shoulder and along mid trap region - Balance/Special Test Scores Oswestry Neck Score: 12 Quick DASH Score: 70.4525 - Goals Goal 1:: I HEP Goal Time Frame: 4-6 Weeks Goal 2:: Increase L shoulder strength by 1/2 muscle grade (at time of eval: R shld MMT: 3+/5 flex and abd due to pain and weakness, 3-/5 ER and IR). Goal Time Frame: 4-6 Weeks Goal 3:: Decrease L arm pain and numbness by 50% Goal Time Frame: 4-6 Weeks Goal 4:: Sit with upright posture during treatment sessions Goal Time Frame: 4-6 Weeks - Rehabilitation Potential Rehabilitation Potential: Good - Anticipated Interventions Patient/Client Instruction: Educate patient on: Condition, Plan of Care For the Purpose of:: To decrease pain, To increase ROM, To improve nutrient delivery to tissue, To improve muscle performance and motor function, To improve ability to perform ADL's, To increase tolerance to activity/condition/position, To improve ability of physical actions for home/community/work/leisure, To improve health of tissue, To increase flexibility/ROM Therapeutic Exercise to Include: Strength training, Postural training, Flexibilty training, Passive ROM, Active ROM, Scapular Strength/Stabilization For the Purpose of:: To decrease pain, To decrease swelling/inflammation, To improve nutrient delivery to tissue, To improve muscle performance and motor function, To improve ability to perform ADL's, To increase tolerance to activity/condition/position, To improve health of tissue, To decrease soft tissue restriction, To increase flexibility/ROM Manual Therapy Techniques to Include: Mobilization, Passive ROM, Soft tissue mobilization For the Purpose of:: To decrease pain, To increase ROM, To improve nutrient delivery to tissue, To increase oxygenation perfusion, To improve ability to perform ADL's, To improve health of tissue, To decrease soft tissue restriction, To increase flexibility/ROM Cryotherapy (ice pack, ice massage): Yes Thermo therapy (hot pack): Yes Ultrasound (thermal/non thermal): Yes For the Purpose of:: To decrease pain, To decrease swelling/inflammation, To increase ROM, To improve nutrient delivery to tissue Thank you for the opportunity to evaluate your patient. For Medicare and Medicare HMO plans, please review the plan of care and approve it. It will need to be FAXED BACK to us at [phone] for Medicare purposes. For Medicare only, by signing this I certify the plan of care. Please let me know if there are questions or concerns regarding this plan of care. Physician Signature: Date:
--- NOTE | 2021-09-15 13:43 | HP.PT.NRP ---
MIAN WOLFE was seen in my office for initial evaluation on 05/18/21. The following Plan of Care was established for this patient: Initial Frequency: 2x /Week Initial Duration: 4 Weeks Patient/Client Instruction: Educate patient on: Condition, Plan of Care For the Purpose of:: To decrease pain, To increase ROM, To improve nutrient delivery to tissue, To improve muscle performance and motor function, To improve ability to perform ADL's, To increase tolerance to activity/condition/position, To improve ability of physical actions for home/community/work/leisure, To improve health of tissue, To increase flexibility/ROM Therapeutic Exercise to Include: Strength training, Postural training, Flexibilty training, Passive ROM, Active ROM, Scapular Strength/Stabilization For the Purpose of:: To decrease pain, To decrease swelling/inflammation, To improve nutrient delivery to tissue, To improve muscle performance and motor function, To improve ability to perform ADL's, To increase tolerance to activity/condition/position, To improve health of tissue, To decrease soft tissue restriction, To increase flexibility/ROM Manual Therapy Techniques to Include: Mobilization, Passive ROM, Soft tissue mobilization For the Purpose of:: To decrease pain, To increase ROM, To improve nutrient delivery to tissue, To increase oxygenation perfusion, To improve ability to perform ADL's, To improve health of tissue, To decrease soft tissue restriction, To increase flexibility/ROM Cryotherapy (ice pack, ice massage): Yes Thermo therapy (hot pack): Yes Ultrasound (thermal/non thermal): Yes For the Purpose of:: To decrease pain, To decrease swelling/inflammation, To increase ROM, To improve nutrient delivery to tissue This patient was last seen in our office 06/04/21. Pertinent comments regarding their Physical therapy will appear below: DC PT. Pt reports that she was feeling great and wished to be discharged. At this point I will be discontinuing this patient from physical therapy. I would be happy to see this patient again in the future if found appropriate by the physician. Thank you! Ashlee Hadley, DHIRAJ Balance/Gait/Functional tests - Balance/Special Test Scores Oswestry Neck Score: 12 Quick DASH Score: 70.4525
== END 2021-06-04 19:00 | disposition home or self-care (01) ==
LOC: PT 09:30
PROVIDERS: PCP Internal Medicine; Referring Provider Physician Assistant; Visit Provider Physician Assistant
DX: M54.12 Radiculopathy, cervical region (principal); M25.512 Pain in left shoulder
CPT/HCPCS: 97035; 97110; 97162

== ENCOUNTER → 2021-07-28 | Outpatient (CLI) | payer MEDICAID, SELFPAY | END | disposition home or self-care (01) | LOC: LABSPEC 13:36 | PROVIDERS: PCP Internal Medicine; Referring Provider Physician Assistant; Visit Provider Physician Assistant | DX: U07.1 COVID-19 (principal) | CPT/HCPCS: 87633; 87635; U0005; U0003 ==

== ENCOUNTER 2021-08-02 17:30 | Outpatient (CLI) | payer MEDICAID, SELFPAY ==
[2021-08-02 17:44] VITALS: BP 129/88; PULSE 82; RESP 16; TEMP 36.8; O2SAT 97; BMI 40.9
[2021-08-02] MEDS: 0.9% Saline Lock 10 ML Syringe IV (17:48)
[2021-08-02 18:40] VITALS: BP 146/87; PULSE 67; RESP 18; TEMP 36.9; O2SAT 97
[2021-08-02 19:41] VITALS: BP 155/80; PULSE 82; RESP 16; TEMP 36.8; O2SAT 99
== END 2021-08-02 19:40 | disposition home or self-care (01) ==
LOC: MS3OUT 17:30 → MS3 17:31
PROVIDERS: PCP Internal Medicine; Referring Provider Nurse Practitioner Adult Health; Visit Provider Nurse Practitioner Adult Health
DX: U07.1 COVID-19 (principal)
CPT/HCPCS: J7050; M0245; Q0245; A4216

== ENCOUNTER → 2021-08-04 15:15 | Outpatient (CLI) | payer MEDICAID, SELFPAY ==
--- NOTE | 2021-08-04 15:21 | RAD_ITS ---
EXAM: XR CHEST, 2 VIEWS CLINICAL INDICATION: covid pneumonia TECHNIQUE: Frontal and lateral views of the chest. This report was created using [employer] report generation technology. COMPARISON: 06/25/2019 FINDINGS: LUNGS AND PLEURAL SPACES: Unremarkable. No consolidation or edema. No pneumothorax. No effusion. HEART: Unremarkable. Cardiac silhouette not enlarged. MEDIASTINUM: Central airways and mediastinal contour are unremarkable. BONES/JOINTS: Unremarkable. SOFT TISSUES: Unremarkable. RAD/Chest PA and Lateral IMPRESSION: No radiographic evidence of acute cardiopulmonary disease. Electronically Signed: Javier Fu MD at 15:38 EST , Service support ,
== END ==
PROVIDERS: PCP Internal Medicine; Referring Provider Physician Assistant; Visit Provider Physician Assistant
DX: U07.1 COVID-19 (principal)
CPT/HCPCS: 71046

== ENCOUNTER → 2022-02-09 | Outpatient (CLI) | payer MEDICAID, SELFPAY ==
[2022-02-09 16:40] LABS: Absolute Lymphocyte Count 2.25 X10^3/uL (0.83-4.51); Absolute Neutrophil Count 5.3 X10^3/uL (2.0-7.7); Basophil# 0.05 X10^3/uL; Basophil% 0.6 % (0-1); Eosinophil# 0.22 X10^3/uL; Eosinophils% 2.6 % (0-5); Hematocrit 40.6 % (37-47); Lymphocyte # 2.25 X10^3/ul (0.83-4.51); Lymphocyte % 26.3 % (19-41); Mean Corpuscular Volume 93.8 fL (81-99); Mean Platelet Vol. 10.7 fl (6.2-12.0); Monocyte# 0.71 X10^3/uL; Monocyte% 8.3 % (0-10); NRBC Flagged by Analyzer 0 % (0-5); Neutrophil # 5.25 X10^3/uL (2.7-7.7); Neutrophil % 61.5 % (47-70); Platelet Count 291 K/mm3 (150-450); RBC Distribution Width CV 13.3 % (11.6-14.6); RBC Distribution Width SD 45.9 fl (35.1-43.9); Red Blood Count 4.33 M/mm3 (4.2-5.4); White Blood Count 8.5 K/mm3 (4.4-11.0)
[2022-02-09 17:17] LABS: Vitamin B12 356 pg/mL (211-911)
[2022-02-09 17:24] LABS: T4 Free Direct 1.12 ng/dL (0.76-1.46); Thyroid Stim Hormone (TSH) 5.85 uIU/mL (0.358-3.74)
[2022-02-09 19:24] LABS: ALB/GLOB Ratio 1.1 RATIO (0.9-2.4); AST(SGOT) 13 U/L (15-37); Alanine Aminotransfer ALT/SGPT 18 U/L (13-56); Albumin, Serum 3.7 g/dL (3.2-5.0); Alkaline Phosphatase 88 U/L (45-117); Anion Gap 7 (5-15); BUN 16 mg/dL (7-18); BUN/Creat Ratio 20.2 RATIO (10-20); Bilirubin, Direct 0.16 mg/dL (0.00-0.30); Calcium,Total 9.3 mg/dL (8.5-10.1); Chloride 105 mmol/L (98-107); Cholesterol 188 mg/dL (200); Creatinine, Serum 0.79 mg/dL (0.55-1.02); EST Glomerular Filtration Rate 80 mL/min (>60); Est Glom Filt Rate - Afr Amer 97 mL/min (>60); Globulin 3.5 g/dL (2.2-4.2); Glucose 98 mg/dL (74-106); High Density Lipoprotein 42 mg/dL; Potassium 3.9 mmol/L (3.5-5.1); Protein, Total 7.2 g/dL (6.4-8.2); Sodium Level 140 mmol/L (136-145); Triglycerides 314 mg/dL; Very Low Density Lipoprotein 63 mg/dL (5-40)
== END | disposition home or self-care (01) ==
LOC: BIMLAB 15:30
PROVIDERS: Internal Medicine Endocrinology, Diabetes & Metabolism; PCP Internal Medicine; Referring Provider Internal Medicine; Visit Provider Internal Medicine
DX: Z00.00 Encounter for general adult medical examination without abnormal findings (principal); E03.9 Hypothyroidism, unspecified; E06.3 Autoimmune thyroiditis
CPT/HCPCS: 36415; 80053; 80061; 82248; 82607; 84439; 84443; 85025

== ENCOUNTER → 2022-03-04 | Outpatient (CLI) | payer MEDICAID, SELFPAY ==
--- NOTE | 2022-03-04 12:01 | BI_ITS ---
MAMMOGRAPHY - BILATERAL SCREENING REASON FOR EXAM: Female, 56 years old. Routine annual screening examination. PERTINENT HISTORY: Non-contributory. TECHNIQUE: Digital bilateral breast josef (3D mammographic acquisition) in the CC and MLO projections. 2-D mediolateral oblique (MLO) and craniocaudad (CC) views of both breasts were obtained. CAD: Full Field Digital Mammography with Computer Added Detection was performed. COMPARISON: Comparison is made with prior study dated 03/08/2018. FINDINGS: Breast Composition: There are scattered areas of fibroglandular density. There are no dominant masses or suspicious calcifications. Stable benign appearing bilateral axillary lymph nodes. No other significant abnormalities are identified. There has been no significant change since the prior study. BI/SCRN MAMM (CAD)W/JOSEF BILAT IMPRESSION: Stable bilateral screening mammogram. Yearly follow-up mammogram recommended. (A) ASSESSMENT CATEGORY: BIRADS Category 2: Benign. A letter regarding these results will be sent to the patient by the facility within 30 days. Approximately 10% of breast cancers are not detected by mammography. A normal mammogram should not delay biopsy of a clinically suspicious abnormality. [id number] Electronically Signed: Lon Eric MD at 12:53 EDT ,
== END | disposition home or self-care (01) ==
LOC: OPBI 12:00
PROVIDERS: PCP Internal Medicine; Visit Provider Internal Medicine
DX: Z12.31 Encounter for screening mammogram for malignant neoplasm of breast (principal)
CPT/HCPCS: 77063; 77067

== ENCOUNTER → 2022-08-29 | Outpatient (CLI) | payer MEDICAID, SELFPAY ==
[2022-08-29 14:33] LABS: Bacteria 0 SEEN /hpf (None Seen); Mucous, Urine 0 SEEN /hpf (<or=2+)
[2022-08-29 15:21] LABS: Glucose, Dipstick Normal (Normal); Ketone-Dipstick Negative (Negative); Leukocyte Esterase-Dipstick Negative /ul (Negative); Nitrite-Dipstick Positive (Negative); Occult Blood-Urine Negative /ul (Negative); Protein-Dipstick 15 mg/dl (Negative); Specific Gravity, Urine 1.015 (1.002-1.030); Urine Clarity Clear (Clear); Urine Urobilinogen 8 mg/dl (Normal)
[2022-08-29 15:22] LABS: Color, Urine SEE COMMENT BELOW (Yellow); Urine Bilirubin Dipstick 3 mg/dL (Negative)
[2022-08-29 15:30] LABS: Red Blood Cells-Urine 0-5 SEEN /hpf (0-5); Squamous Epithelial Cells - UA 0-5 SEEN /hpf (5-10); White Blood Cells 0-5 SEEN /hpf (0-5)
== END | disposition home or self-care (01) ==
PROVIDERS: Physician Assistant; PCP Internal Medicine; Visit Provider Internal Medicine
DX: R39.9 Unspecified symptoms and signs involving the genitourinary system (principal)
CPT/HCPCS: 81001; 87086; 87088

== ENCOUNTER → 2022-09-05 | Outpatient (CLI) | payer MEDICAID, SELFPAY ==
[2022-09-05 14:02] LABS: Mucous, Urine 0 SEEN /hpf (<or=2+); Red Blood Cells-Urine 0 SEEN /hpf (0-5)
[2022-09-05 15:36] LABS: Absolute Lymphocyte Count 2.05 X10^3/uL (0.83-4.51); Absolute Neutrophil Count 5.7 X10^3/uL (2.0-7.7); Basophil# 0.05 X10^3/uL; Basophil% 0.6 % (0-1); Eosinophil# 0.26 X10^3/uL; Hematocrit 40.9 % (37-47); Lymphocyte # 2.05 X10^3/ul (0.83-4.51); Lymphocyte % 23.6 % (19-41); Mean Corp Hgb Conc 31.8 g/dL (32-36); Mean Corpuscular Hgb 29.5 pg (27.0-32.0); Mean Platelet Vol. 10.7 fl (6.2-12.0); Monocyte% 6.9 % (0-10); NRBC Flagged by Analyzer 0 % (0-5); Neutrophil # 5.67 X10^3/uL (2.7-7.7); Neutrophil % 65.3 % (47-70); Platelet Count 298 K/mm3 (150-450); RBC Distribution Width CV 13.4 % (11.6-14.6); RBC Distribution Width SD 45.8 fl (35.1-43.9); White Blood Count 8.7 K/mm3 (4.4-11.0)
[2022-09-05 15:53] LABS: Color, Urine Yellow (Yellow); Glucose, Dipstick Normal (Normal); Ketone-Dipstick 5 mg/dl (Negative); Leukocyte Esterase-Dipstick 100 /ul (Negative); Nitrite-Dipstick Negative (Negative); Occult Blood-Urine Negative /ul (Negative); Protein-Dipstick 15 mg/dl (Negative); Specific Gravity, Urine 1.025 (1.002-1.030); Urine Bilirubin Dipstick Negative (Negative); Urine Clarity Clear (Clear); Urine Urobilinogen Normal (Normal)
[2022-09-05 16:15] LABS: ALB/GLOB Ratio 1.2 RATIO (0.9-2.4); AST(SGOT) 16 U/L (15-37); Alanine Aminotransfer ALT/SGPT 23 U/L (13-56); Albumin, Serum 3.8 g/dL (3.2-5.0); Alkaline Phosphatase 88 U/L (45-117); Anion Gap 11 (5-15); BUN 19 mg/dL (7-18); BUN/Creat Ratio 26.1 RATIO (10-20); Bacteria 1+ /hpf (None Seen); Calcium,Total 9.6 mg/dL (8.5-10.1); Chloride 100 mmol/L (98-107); Creatinine, Serum 0.73 mg/dL (0.55-1.02); EST Glomerular Filtration Rate 88 mL/min (>60); Est Glom Filt Rate - Afr Amer 106 mL/min (>60); Globulin 3.1 g/dL (2.2-4.2); Glucose 100 mg/dL (74-106); Potassium 4.1 mmol/L (3.5-5.1); Protein, Total 6.9 g/dL (6.4-8.2); Sodium Level 138 mmol/L (136-145); Squamous Epithelial Cells - UA 0-5 SEEN /hpf (5-10); White Blood Cells 0-5 SEEN /hpf (0-5)
[2022-09-05 16:29] LABS: T4 Free Direct 1.17 ng/dL (0.76-1.46); Thyroid Stim Hormone (TSH) 6.77 uIU/mL (0.358-3.74)
== END | disposition home or self-care (01) ==
LOC: BIMLAB 14:00
PROVIDERS: Internal Medicine Endocrinology, Diabetes & Metabolism; PCP Internal Medicine; Visit Provider Physician Assistant
DX: R30.0 Dysuria (principal); R10.9 Unspecified abdominal pain; E03.8 Other specified hypothyroidism; E06.3 Autoimmune thyroiditis
CPT/HCPCS: 36415; 80053; 81001; 84439; 84443; 85025; 87086; 87088

== ENCOUNTER 2022-09-12 11:56 | Emergency (ER) | payer MEDICAID, SELFPAY ==
[2022-09-12 11:57] VITALS: BP 173/109; PULSE 71; RESP 16; TEMP 36.4; O2SAT 98; BMI 42.5
[2022-09-12 12:14] LABS: Red Blood Cells-Urine 0 SEEN /hpf (0-5)
[2022-09-12 12:16] LABS: Color, Urine Yellow (Yellow); Glucose, Dipstick Normal (Normal); Ketone-Dipstick 5 mg/dl (Negative); Leukocyte Esterase-Dipstick 25 /ul (Negative); Nitrite-Dipstick Negative (Negative); Occult Blood-Urine Negative /ul (Negative); Protein-Dipstick 15 mg/dl (Negative); Urine Bilirubin Dipstick Negative (Negative); Urine Clarity Sl. Cloudy (Clear); Urine Urobilinogen Normal (Normal)
[2022-09-12 12:24] LABS: Bacteria 1+ /hpf (None Seen); Mucous, Urine 1+ /hpf (<or=2+); Squamous Epithelial Cells - UA 0-5 SEEN /hpf (5-10); White Blood Cells 0-5 SEEN /hpf (0-5)
--- NOTE | 2022-09-12 14:03 | EDS_ITS ---
HPI HPI - GI History of Present Illness Chief Complaint: Flank Pain Narrative Narrative: 57-year-old female past medical history of coronary artery disease, anxiety and depression, hypothyroidism, presents with left flank pain that she has had for the last 2 weeks. She states she has been seen by the physician engineer second assistant and her primary care physician's office and has been on 3 antibiotics for a UTI because nothing is working. She became concerned because today she had pain in the left flank radiating towards the front that doubled her over. She denies any fevers or chills, no exacerbating or alleviating factors to her left flank pain. Past surgical history includes laparoscopic surgery for ovarian cyst, and she states she also had adhesions. No problems with bowel movements. No gross hematuria. She states she had lab work performed last week, but became concerned today because of all the pain in her left flank. [facility] Medical History Abnormal echocardiogram (03/23/18) Anemia Anxiety Anxiety and depression Arthritis Arthritis of left temporomandibular joint Asthma Atherosclerosis of [place] coronary artery of [place] heart without angina pectoris Cardiology follow-up encounter Colon cancer screening Essential hypertension H/O bronchitis History of echocardiogram History of edema History of irregular heartbeat History of steroid therapy Hyperglycemia Hypertension Hypertension Hypothyroidism Left ventricular dysfunction Migraine headache Morbid obesity Nonischemic cardiomyopathy Nonrheumatic mitral (valve) insufficiency Nonrheumatic tricuspid (valve) insufficiency Normal stress echocardiogram Obesity Otitis media Post-menopausal Preventative health care Pure hypercholesterolemia Shortness of breath Shortness of breath on exertion Sinusitis Syncope Thyroid disease Thyroid disorder Vitiligo Wears glasses Home Medications cholecalciferol (vitamin D3) 50 mcg (2,000 unit) tablet 2,000 unit PO DAILY 05/18/18 [History Last Taken Unknown] aspirin 81 mg tablet,delayed release (Adult Aspirin Regimen) 81 mg PO DAILY #30 tabs 05/02/19 [Rx Last Taken 06/26/19] ferrous sulfate 325 mg (65 mg iron) tablet 650 mg PO QODAY 03/11/21 [History Last Taken Unknown] metoprolol tartrate 25 mg tablet 25 mg PO DAILY #90 tabs 07/26/21 [Rx Last Taken Unknown] hydrocortisone 2.5 % topical cream 1 applic topical BID PRN rash #30 grams 10/19/21 [Rx Last Taken Unknown] albuterol sulfate 90 mcg/actuation aerosol inhaler 1 - 2 puff inhalation Q6H PRN shortness of breath or wheezing #8.5 grams 08/04/22 [Rx Last Taken Unknown] escitalopram oxalate 10 mg tablet 10 mg PO DAILY #90 tabs 08/04/22 [Rx Last Taken Unknown] levothyroxine 137 mcg tablet 137 mcg PO DAILY 08/17/22 [History Last Taken Unknown] cephalexin 500 mg tablet 500 mg PO TID #21 tabs 09/07/22 [Rx Last Taken Unknown] hydrocodone-acetaminophen 5-325mg 5mg-325mg 1 tab PO Q6H PRN PRN Pain 3 days #12 TABLETS 09/12/22 [Rx Last Taken Unknown] ketorolac 10 mg tablet 10 mg PO TID PRN pain 5 days #15 tabs 09/12/22 [Rx Last Taken Unknown] tamsulosin 0.4 mg capsule (Flomax) 0.4 mg PO QHS #10 caps 09/12/22 [Rx Last Taken Unknown] Allergy/AdvReac Type Severity Reaction Status Date / Time losartan Allergy Intermediate muscles Verified 09/05/22 13:31 locked up Sulfa (Sulfonamide Allergy Hives Verified 09/05/22 13:31 Antibiotics) rosuvastatin [From Crestor] AdvReac Severe Lymphadenopathy, Verified 09/05/22 13:31 edema, hyperthyroid atorvastatin [From Lipitor] AdvReac Intermediate Muscle Verified 09/05/22 13:31 aches/myalgias Family History Father CAD (coronary artery disease) Diabetes Dementia Heart disease Mother CAD (coronary artery disease) Hypertension Thyroid disorder Heart disease Sister Diabetes Type II Thyroid disorder Colon polyps Crohn's disease Sister Diabetes Type II Thyroid disorder Surgical History History of cardiac catheterization History of cholecystectomy History of colonoscopy History of laparoscopy History of left heart catheterization Hx of laparoscopy Stented coronary artery (04/19/18) Social History Smoking Status: Never smoker alcohol intake: current alcohol intake frequency: holidays/special occasions only substance use type: does not use caffeine: Yes Type: coffee Number of servings: 2 what type of physical activity do you participate in: walking frequency: 3-4 times per week ROS ROS ED ROS Narrative Constitutional: No fever, no chills. HEENT: No sore throat. No neck pain. No loss of vision. No rhinorrhea. Cardiovascular: No chest pain. No palpitations. No pedal edema. Respiratory: No cough, no shortness of breath. Abdominal: No abdominal pain. No nausea. No vomiting. No constipation. Genitourinary: No dysuria. No hematuria. Being treated for UTI with third antibiotic. Positive left flank pain. Musculoskeletal: No myalgias. No arthralgias. Neurologic: No headaches. No dizziness. No lightheadedness. Skin: No rash. No change in color. Psychiatric: No depression. No anxiety. EXAM Physical Exam Narrative Exam Narrative: Afebrile. Vital signs noted. HEENT: Normocephalic. Atraumatic. PERRL, EOMI. Neck soft and supple. No point tenderness or step off. Cardiovascular: Regular rate and rhythm. No murmurs, rubs, or gallops appreciated. Respiratory: No tachypnea. Lungs clear to auscultation bilaterally. Gastrointestinal: Abdomen soft, nontender, with normoactive bowel sounds. No rebound or guarding. Neurological: Awake. Alert. Nonfocal, nonlateralizing. Skin: No rash. Normal color. No pallor. Musculoskeletal: No pedal edema. Full range of motion extremities. Const Vital Signs: 09/12/22 11:57 Temperature 97.6 F L Temperature Source Temporal Pulse Rate 71 Respiratory Rate 16 Blood Pressure 173/109 H Blood Pressure Mean 130 Pulse Ox 98 Oxygen Delivery Method Room Air MDM MDM MDM Narrative Medical decision making narrative: Urinalysis was obtained and reviewed. There is no evidence of infection currently with 25 leukocyte esterase but 0-5 WBCs, 0 RBCs so no microscopic blood. I do not feel antibiotics are indicated. Patient is menopausal, so she has not had menstrual periods for at least a year so I do not feel hCG is indicated. I will obtain a CBC and a BMP. She was given Toradol for analgesia in the event that this is ureterolithiasis. CT imaging was obtained of the abdomen and pelvis without contrast. I reviewed her laboratory work, she has a normal white count of 8.2, hemoglobin normal at 13.3, hematocrit 42.0. Normal platelet count of 317. BMP was reviewed and she has a normal BUN of 15 and a normal creatinine of 0.80, otherwise unremarkable. Urinalysis was reviewed and commented on as above. I reviewed her CT scan and images along with the radiology report. There is a left sided punctate lesion at the ureterovesicular junction with a small amount of hydronephrosis. After Toradol 30 mg intravenously, she is resting comfortably. I feel she be discharged safely home with follow-up to urology. I do not feel antibiotics are indicated. She was given prescriptions for Toradol, Flomax, and [place]. She was told of the possibility of dizziness with Flomax, along with nausea, vomiting, constipation, drowsiness, and addiction with use of narcotic pain medication. I reviewed her OARRS report prior to prescribing the narcotic. I feel she be discharged safely home and return instructions were reviewed. Disposition is discharged home in stable condition. Lab Data Attestation: I reviewed the patient's lab results. Labs: Laboratory Results - last 24 hr 09/12/22 09/12/22 09/12/22 12:05 14:48 14:48 WBC 8.2 RBC 4.43 Hgb 13.3 Hct 42.0 MCV 94.8 MCH 30.0 MCHC 31.7 L RDW Std Deviation 46.7 H RDW Coeff of Evan 13.3 Plt Count 317 MPV 10.5 Immature Gran % (Auto) 0.500 Neut % (Auto) 61.3 Lymph % (Auto) 26.4 Oliver % (Auto) 8.6 Eos % (Auto) 2.7 Baso % (Auto) 0.5 Absolute Neuts (auto) 5.0 Absolute Lymphs (auto) 2.15 Nucleated RBC % 0 Sodium 140 Potassium 4.1 Chloride 104 Carbon Dioxide 28.0 Anion Gap 8 BUN 15 Creatinine 0.80 Estim Creat Clear Calc 62.10 Est GFR (MDRD) Af Amer 96 Est GFR (MDRD) Non-Af 79 BUN/Creatinine Ratio 18.8 Glucose 105 Calcium 9.2 Urine Color Yellow Urine Clarity Sl. Cloudy Urine pH 6.0 Ur Specific Calmar 1.020 Urine Protein 15 H Urine Glucose (UA) Normal Urine Ketones 5 H Urine Occult Blood Negative Urine Nitrite Negative Urine Bilirubin Negative Urine Urobilinogen Normal Ur Leukocyte Esterase 25 H Urine RBC 0 SEEN Urine WBC 0-5 SEEN Ur Squamous Epith Cells 0-5 SEEN Urine Bacteria 1+ Urine Mucus 1+ Radiography Diagnostic Testing: Clinical Impression(s) from Imaging Studies Abdomen/Pelvis CT 09/12/22 14:03 IMPRESSION: Findings suggestive of a tiny calculus at the left ureterovesical junction causing a minimal degree of left hydronephrosis. Status post cholecystectomy. Electronically Signed: Lon Eric MD at 15:25 EST , Discharge Plan Triage Chief Complaint: Flank Pain ED Provider: Luiz Cruz Dx/Rx/DC Orders Clinical Impression: Ureteral calculus, left, Ureteral colic Instructions: Treating Kidney Stones ..., Preventing Kidney Stones, ED Kidney Stone w/ Colic Prescriptions: New ketorolac 10 mg tablet 10 mg PO TID PRN (Reason: pain) 5 Days Qty: 15 0RF hydrocodone-acetaminophen 5-325 mg tablet 1 tab PO Q6H PRN PRN (Reason: Pain) 3 Days Qty: 12 0RF tamsulosin [Flomax] 0.4 mg capsule 0.4 mg PO QHS Qty: 10 0RF No Action aspirin [Adult Aspirin Regimen] 81 mg tablet,delayed release (DR/EC) 81 mg PO DAILY Qty: 30 11RF hydrocortisone 2.5 % cream 1 applic topical BID PRN (Reason: rash) Qty: 30 0RF albuterol sulfate 90 mcg/actuation HFA aerosol inhaler 1 - 2 puff inhalation Q6H PRN (Reason: shortness of breath or wheezing) Qty: 8.5 0RF escitalopram oxalate 10 mg tablet 10 mg PO DAILY Qty: 90 2RF ferrous sulfate 325 mg (65 mg iron) tablet 650 mg PO QODAY levothyroxine 137 mcg tablet 137 mcg PO DAILY cholecalciferol (vitamin D3) 2,000 unit tablet 2,000 unit tablet 2,000 unit PO DAILY metoprolol tartrate 25 mg tablet 25 mg PO DAILY Qty: 90 3RF cephalexin 500 mg tablet 500 mg PO TID Qty: 21 0RF Primary Care Provider: Camilla Castaneda Referrals: Camilla Castaneda MD [Primary Care Provider] - Sachi Wyatt MD [Med Staff - Active Staff] - 3-5 Days if not improving Activity Restrictions/Additional Instructions: You have a small kidney stone on the left side in the ureter which is about to pass into the bladder. Take the medication as directed for pain and follow-up with the urologist. Return with fever, intractable pain, inability to take your medications, new or worsening symptoms. Disposition Disposition: Home, Self Care
--- NOTE | 2022-09-12 14:03 | CT_ITS ---
STUDY: CT ABDOMEN AND PELVIS WITHOUT CONTRAST REASON FOR EXAM: Female, 57 years old. Kidney Stone. Worsening left flank pain. RADIATION DOSAGE (If Supplied By Facility): CTDIvol = ( 22.47 ) mGy, DLP = ( 1139.35 ) mGycm TECHNIQUE: Transaxial images were obtained from the dome of the diaphragm to the symphysis pubis without oral contrast, and without intravenous contrast. Sagittal and coronal images were reconstructed. Individualized dose optimization techniques were used for this CT. COMPARISON: None. FINDINGS: The visualized lung bases are unremarkable. The visualized portions of the heart are within normal limits. Normal liver. The patient is status post cholecystectomy. Normal spleen. Normal pancreas. Normal bilateral adrenal glands. Normal right kidney. Minimal degree of the left hydronephrosis due to a tiny calculus at the left ureterovesical junction. Normal visualized stomach. Normal small intestine. Normal colon. The appendix is visualized and appears normal. Normal abdominal aorta. Normal inferior vena cava. Normal retroperitoneum. Normal urinary bladder. Normal abdominal wall. There are mild degenerative changes of the visualized lumbar spine. There is loss of the normal lumbar lordosis. CT/Abdomen/Pelvis without Cont IMPRESSION: Findings suggestive of a tiny calculus at the left ureterovesical junction causing a minimal degree of left hydronephrosis. Status post cholecystectomy. Electronically Signed: Lon Eric MD at 15:25 EST ,
[2022-09-12] MEDS: Ketorolac 30 MG/ML Syringe IV (14:54)
[2022-09-12] MEDS: 0.9% Normal Saline 1,000 ML 250 ML IV (14:56)
[2022-09-12 14:58] LABS: Absolute Lymphocyte Count 2.15 X10^3/uL (0.83-4.51); Basophil# 0.04 X10^3/uL; Basophil% 0.5 % (0-1); Eosinophil# 0.22 X10^3/uL; Eosinophils% 2.7 % (0-5); Hemoglobin 13.3 g/dL (12.0-15.0); Lymphocyte # 2.15 X10^3/ul (0.83-4.51); Lymphocyte % 26.4 % (19-41); Mean Corp Hgb Conc 31.7 g/dL (32-36); Mean Corpuscular Volume 94.8 fL (81-99); Mean Platelet Vol. 10.5 fl (6.2-12.0); Monocyte% 8.6 % (0-10); NRBC Flagged by Analyzer 0 % (0-5); Neutrophil % 61.3 % (47-70); Platelet Count 317 K/mm3 (150-450); RBC Distribution Width CV 13.3 % (11.6-14.6); RBC Distribution Width SD 46.7 fl (35.1-43.9); Red Blood Count 4.43 M/mm3 (4.2-5.4); White Blood Count 8.2 K/mm3 (4.4-11.0)
[2022-09-12 15:14] LABS: Anion Gap 8 (5-15); BUN 15 mg/dL (7-18); BUN/Creat Ratio 18.8 RATIO (10-20); Calcium,Total 9.2 mg/dL (8.5-10.1); Chloride 104 mmol/L (98-107); EST Glomerular Filtration Rate 79 mL/min (>60); Est Glom Filt Rate - Afr Amer 96 mL/min (>60); Glucose 105 mg/dL (74-106); Potassium 4.1 mmol/L (3.5-5.1); Sodium Level 140 mmol/L (136-145)
[2022-09-12] MEDS: Ondansetron 4 MG/2 ML Vial IV (15:14)
[2022-09-12 16:20] VITALS: BP 147/85; PULSE 76; RESP 14; O2SAT 100
== END 2022-09-12 16:21 | disposition home or self-care (01) ==
PROVIDERS: Emergency Provider Emergency Medicine; PCP Internal Medicine; Visit Provider Emergency Medicine
DX: N20.1 Calculus of ureter (principal); I42.8 Other cardiomyopathies; F41.9 Anxiety disorder, unspecified; F32.A Depression, unspecified; I10 Essential (primary) hypertension; I25.10 Atherosclerotic heart disease of native coronary artery without angina pectoris; E03.9 Hypothyroidism, unspecified; Z95.5 Presence of coronary angioplasty implant and graft; Z79.82 Long term (current) use of aspirin; Z79.899 Other long term (current) drug therapy
CPT/HCPCS: 74176; 80048; 81001; 85025; 96361; 96374; 96375; 99283; J2405

== ENCOUNTER 2022-09-30 06:25 | Day surgery (SDC) | payer MEDICAID, SELFPAY ==
[2022-09-30 07:02] VITALS: BP 127/78; PULSE 64; RESP 18; TEMP 36.7; O2SAT 96; BMI 42.3
[2022-09-30] MEDS: Lactated Ringers 1,000 ML 15 ML IV (07:10)
--- NOTE | 2022-09-30 07:21 | HP.PCM_ITS ---
HPI - General HPI Narrative MIAN WOLFE, is a 57 F who presents for screening colonoscopy. Patient thinks she might have had a colonoscopy in her 20s but not in the last 10 years. She denies any abdominal pain or blood in the stool. She has no family history of colon cancer but she does have family history of Crohn's disease. [facility] Medical History Abnormal echocardiogram (03/23/18) Anemia Anxiety Anxiety and depression Arthritis Arthritis of left temporomandibular joint Asthma Atherosclerosis of [place] coronary artery of [place] heart without angina pectoris Cardiology follow-up encounter Colon cancer screening Essential hypertension H/O bronchitis History of echocardiogram History of edema History of irregular heartbeat History of steroid therapy Hyperglycemia Hypertension Hypertension Hypothyroidism Left ventricular dysfunction Migraine headache Morbid obesity Nonischemic cardiomyopathy Nonrheumatic mitral (valve) insufficiency Nonrheumatic tricuspid (valve) insufficiency Normal stress echocardiogram Obesity Otitis media Post-menopausal Preventative health care Pure hypercholesterolemia Shortness of breath Shortness of breath on exertion Sinusitis Syncope Thyroid disease Thyroid disorder Vitiligo Wears glasses Home Medications cholecalciferol (vitamin D3) 50 mcg (2,000 unit) tablet 2,000 unit PO DAILY 05/18/18 [History Last Taken Unknown] aspirin 81 mg tablet,delayed release (Adult Aspirin Regimen) 81 mg PO DAILY #30 tabs 05/02/19 [Rx Last Taken 09/27/22] ferrous sulfate 325 mg (65 mg iron) tablet 650 mg PO QODAY 03/11/21 [History Last Taken Unknown] metoprolol tartrate 25 mg tablet 25 mg PO DAILY #90 tabs 07/26/21 [Rx Last Taken 09/29/22] hydrocortisone 2.5 % topical cream 1 applic topical BID PRN rash #30 grams 10/19/21 [Rx Last Taken Unknown] albuterol sulfate 90 mcg/actuation aerosol inhaler 1 - 2 puff inhalation Q6H PRN shortness of breath or wheezing #8.5 grams 08/04/22 [Rx Last Taken Unknown] escitalopram oxalate 10 mg tablet 10 mg PO DAILY #90 tabs 08/04/22 [Rx Last Taken Unknown] hydrocodone-acetaminophen 5-325mg 5mg-325mg 1 tab PO Q6H PRN PRN Pain 3 days #12 TABLETS 09/12/22 [Rx Last Taken Unknown] levothyroxine 150 mcg tablet 150 mcg PO DAILY #30 tabs 09/29/22 [Rx Last Taken Unknown] Allergy/AdvReac Type Severity Reaction Status Date / Time losartan Allergy Intermediate muscles Verified 09/30/22 07:02 locked up Sulfa (Sulfonamide Allergy Hives Verified 09/30/22 07:02 Antibiotics) rosuvastatin [From Crestor] AdvReac Severe Lymphadenopathy, Verified 09/30/22 07:02 edema, hyperthyroid atorvastatin [From Lipitor] AdvReac Intermediate Muscle Verified 09/30/22 07:02 aches/myalgias Family History Father CAD (coronary artery disease) Diabetes Dementia Heart disease Mother CAD (coronary artery disease) Hypertension Thyroid disorder Heart disease Sister Diabetes Type II Thyroid disorder Colon polyps Crohn's disease Sister Diabetes Type II Thyroid disorder Surgical History History of cardiac catheterization History of cholecystectomy History of colonoscopy History of laparoscopy History of left heart catheterization Hx of laparoscopy Stented coronary artery (04/19/18) Social History Smoking Status: Never smoker alcohol intake: current alcohol intake frequency: holidays/special occasions only substance use type: does not use caffeine: Yes Type: coffee Number of servings: 2 what type of physical activity do you participate in: walking frequency: 3-4 times per week Past Medical/Surgical History Planned Operation Planned Operative Procedure/s: COLONOSCOPY Previous Hospitalizations/Surgeries HX Hospitalizations: No HX of Surgeries: stent x1 cholecystectomy Any Problems With Anesthesia: No You/Your Family Experience Fever (Hyperthermia) With Anes: No Cholinesterase deficiency: No Cardiovascular Hx Chest Pain within Last 2 months: Yes Hx of Irregular Heartbeat and/or Afib: Yes Hx Heart Attack: No Hx Congestive Heart Failure: No Hx Rheumatic Fever: No Hx Hypertension: Yes (CONTROLLED ON MED) Hx Internal Defibrillator: No Hx Pacemaker: No Hx Cardiac Catheterization: Yes What facility was last heart cath performed: [facility] Date of last Heart Cath: [facility] Hx Cardiac Surgery/Stents/Etc.: Yes (Stent 3 years ago) Hx Stress Test: Yes Respiratory Chronic Cough: No Hx Chronic Obstructive Pulmonary Disease (COPD): No Hx Asthma: No Hx Emphysema: No Hx Sleep Apnea: No Hx Respiratory Tract Infection/Cold (presently): No Do You Snore Loudly (louder than talking or can be heard): No Do You Often Feel Tired/ Fatigued/ Sleepy [place]ring Daytime?: No Has Anyone Observed You Stop Breathing During Sleep?: No Result (for STOP score): Negative Hx Smoking: No Smoking Status: Never smoker Gastrointestinal Hx Gastroesophageal Reflux: No Hx Ulcer: No Special diet followed at home: No Hx Unplanned Weight Loss of 20#: No HX Unplanned Weight Gain of 20#: No Neurological Hx Seizures: No HX Syncope/Blackout Spells/Unconsciousness: Yes Does patient have nerve stimulator: No Blood Disorder Hx Deep Vein Thrombosis: No Hx High Cholesterol: No Hx Hepatitis: No Hx Anemia: Yes (on iron) Genitourinary Hx Renal Disease: No Hx Dialysis: No Musculoskeletal Hx Arthritis: Yes Endocrine Hx Diabetes: No Thyroid Disease: Yes (on meds) Psycho/Social Hx Substance Use: No Hx Alcohol Use: No Hx Anxiety: No Hx Depression: No Miscellaneous Hx Cancer: No Recent Exposure to Contagious Disease: No Allergies losartan Allergy (Intermediate, Verified 09/30/22 07:02) muscles locked up Sulfa (Sulfonamide Antibiotics) Allergy (Verified 09/30/22 07:02) Hives rosuvastatin [From Crestor] Adverse Reaction (Severe, Verified 09/30/22 07:02) Lymphadenopathy, edema, hyperthyroid atorvastatin [From Lipitor] Adverse Reaction (Intermediate, Verified 09/30/22 07:02) Muscle aches/myalgias Discharge Is Pt Admitted From a Correction, or a [place] [facility]: No After D/C, Where Do you Plan to Go: Return Home Vital Signs Vital Signs Vital Signs: 09/30/22 07:02 09/30/22 07:02 Temperature 98.1 F Temperature Source Temporal Pulse Rate 64 Respiratory Rate 18 Respiratory Pattern Normal Blood Pressure 127/78 H Blood Pressure Mean 94 Blood Pressure Source Monitor Blood Pressure Position Semi-Fowlers Blood Pressure Location Right Arm Pulse Ox 96 Oxygen Delivery Method Room Air Weight Weight: 231 lb 7.766 oz Body Mass Index (BMI) 42.3 Physical Exam Const alert and oriented x3 HEENT normocephalic Eyes PERRL Resp normal respiratory effort and normal air movement Cardio regular rate and regular rhythm GI soft to palpation, non-tender and non-distended Extremity normal to inspection Assessment & Plan Assessment/Plan (1) Colon cancer screening: PLAN: I explained endoscopy in detail to the patient. I explained the risks including but not limited to stroke or heart attack with anesthesia, perforation of the GI tract, bleeding, infection. I explained that any of these could necessitate further emergency surgery. The patient understands and all questions were answered sufficiently. The patient wishes to proceed with procedure. Favian Zee MD Pager: [facility] [address] [place] [address] [address] [place] [address] Office: Surgery Risks - Colonoscopy Risks Include but are not Limited To: Risks include but are not limited to: Bleeding, perforation requiring further surgery, inability to complete colonoscopy requiring barium enema.
[2022-09-30 07:45] VITALS: BP 113/67; BP 127/78; PULSE 58; RESP 14; TEMP 36.8; O2SAT 96
[2022-09-30 07:50] VITALS: BP 116/71; BP 127/78; PULSE 60; RESP 16; O2SAT 97
[2022-09-30 07:55] VITALS: BP 122/74; BP 127/78; PULSE 62; RESP 16; O2SAT 96
--- NOTE | 2022-09-30 07:55 | OP.COLON_ITS ---
Patient Name: Aixa Daniels Procedure Date: 09/30/2022 7:25 AM Date of : 1965 Age: 57 Procedure: Colonoscopy Indications: Screening for colorectal malignant neoplasm Providers: Favian Zee MD Referring MD: Favian Zee MD Medicines: Monitored Anesthesia Care Patient Profile: This is a 57 year old female. Refer to note in patient chart for documentation of history and physical. Last Colonoscopy: none. The patient's first colonoscopy is today. Complications: No immediate complications. Procedure: Pre-Anesthesia Assessment: - Prior to the procedure, a History and Physical was performed, and patient medications and allergies were reviewed. The patient's tolerance of previous anesthesia was also reviewed. The risks and benefits of the procedure and the sedation options and risks were discussed with the patient. All questions were answered, and informed consent was obtained. Prior Anticoagulants: The patient has taken no previous anticoagulant or antiplatelet agents. After reviewing the risks and benefits, the patient was deemed in satisfactory condition to undergo the procedure. After I obtained informed consent, the scope was passed under direct vision. Throughout the procedure, the patient's blood pressure, pulse, and oxygen saturations were monitored continuously. The Colonoscope was introduced through the anus and advanced to the cecum, identified by appendiceal orifice and ileocecal valve. The colonoscopy was performed without difficulty. The patient tolerated the procedure well. The quality of the bowel preparation was good. Scope In: 7:31:19 AM Scope Withdrawal Time 0 hours 5 minutes 30 seconds Scope Out: 7:42:24 AM Total Procedure Duration Time 0 hours 11 minutes 5 seconds Findings: The entire examined colon appeared normal on direct and retroflexion views. Impression: - The entire examined colon is normal on direct and retroflexion views. - No specimens collected. Recommendation: - Discharge patient to home. - Discharge patient to home. - Resume previous diet. - Continue present medications. - Repeat colonoscopy in 10 years for screening purposes. Procedure Code(s): --- Professional --- 98037, Colonoscopy, flexible; diagnostic, including collection of specimen(s) by brushing or washing, when performed (separate procedure) Diagnosis Code(s): --- Professional --- Z12.11, Encounter for screening for malignant neoplasm of colon CPT copyright 2017 [employer]. All rights reserved. The codes documented in this report are preliminary and upon oxygen therapy teacher review may be revised to meet current compliance requirements. Favian Zee MD 09/30/2022 7:54:45 AM This report has been signed electronically. Number of Addenda: 0 Note Initiated On: 09/30/2022 7:25 AM
--- NOTE | 2022-09-30 07:56 | OP.CCLET_ITS ---
09/30/2022 Camilla Castaneda MD [address] [place] [address] [place] [address] Re : Colonoscopy procedure for Aixa Daniels Dear Dr. Castaneda This procedure was performed on Friday, September 30, 2022. My impressions and recommendations are as follows: Impressions : - The entire examined colon is normal on direct and retroflexion views. - No specimens collected. Recommendations : - Discharge patient to home. - Discharge patient to home. - Resume previous diet. - Continue present medications. - Repeat colonoscopy in 10 years for screening purposes. My findings are described in the full procedure note, which is enclosed. If I can be of further assistance, please feel free to contact me at Doctor phone number(s): , Work: . Sincerely, Favian Zee MD 09/30/2022 7:54:45 AM This report has been signed electronically.
[2022-09-30 08:00] VITALS: BP 120/74; BP 127/78; PULSE 57; RESP 16; TEMP 36.2; O2SAT 97
[2022-09-30 08:31] VITALS: BP 127/78
== END 2022-09-30 08:37 | disposition home or self-care (01) ==
LOC: EN 06:26 → AC 06:28
PROVIDERS: PCP Internal Medicine; Referring Provider Internal Medicine; Visit Provider Surgery
PROC: 0DJD8ZZ Inspection of Lower Intestinal Tract, Via Natural or Artificial Opening Endoscopic (ICD-10-PCS; CPT 45378; principal; 2022-09-30 07:25)
DX: Z12.11 Encounter for screening for malignant neoplasm of colon (principal); E66.01 Morbid (severe) obesity due to excess calories; Z68.41 Body mass index [BMI] 40.0-44.9, adult; I25.10 Atherosclerotic heart disease of native coronary artery without angina pectoris; I10 Essential (primary) hypertension; E78.00 Pure hypercholesterolemia, unspecified; E03.9 Hypothyroidism, unspecified; Z95.5 Presence of coronary angioplasty implant and graft; Z90.49 Acquired absence of other specified parts of digestive tract; Z79.82 Long term (current) use of aspirin; Z79.899 Other long term (current) drug therapy; Z86.16 Personal history of COVID-19; Z83.79 Family history of other diseases of the digestive system
CPT/HCPCS: 45378; J7120; J2405

== ENCOUNTER 2022-11-29 13:00 | Inpatient (IN) | payer MEDICAID, SELFPAY ==
[2022-11-29] VITALS (28 sets, daily range): BP systolic 126–199; BP diastolic 65–106; PULSE 65–87; RESP 12–24; TEMP 36.1–37; O2SAT 94–100; BMI 43.7; BMI 44.0; BMI 43.0
--- NOTE | 2022-11-29 13:03 | EKG12_ITS ---
Test Reason : POSS STROKE Blood Pressure : / mmHG Vent. Rate : 084 BPM Atrial Rate : 084 BPM P-R Int : 120 ms QRS Dur : 090 ms QT Int : 414 ms P-R-T Axes : 036 001 038 degrees QTc Int : 489 ms Normal sinus rhythm Prolonged QT Abnormal ECG Confirmed by SUSANNE MICHELLE, IDALMIS ([id number]), online editor ELISEO TOWNSEND ([id number]) on 12/01/2022 9:11:30 AM Referred By: Confirmed By:IDALMIS SKINNER MD
--- NOTE | 2022-11-29 13:03 | CT_ITS ---
STUDY: CT HEAD STROKE PROTOCOL W/O CONTRAST INJECTION REASON FOR EXAM: Female, 57 years old. Neuro deficit, acute, stroke suspected RADIATION DOSAGE (If Supplied By Facility): CTDIvol = ( 44.99 ) mGy, DLP = ( 846.73 ) mGycm TECHNIQUE: Transaxial CT imaging of the brain was performed without administration of intravenous contrast material. Individualized dose optimization techniques were used for this CT. COMPARISON: No relevant priors. FINDINGS: Normal soft tissue structures. Normal calvarium. Normal size ventricles and extra-axial spaces for the patient''s age. Normal white matter tracts of the cerebral hemispheres. Normal basal ganglia and thalami. Normal brainstem. Normal cerebellum. There is no intracranial hemorrhage. There are no findings of an acute ischemic infarction. Normal visualized paranasal sinuses. ASPECT score: 10 CT/STROKE Brain/Head without Cont IMPRESSION: Normal unenhanced CT scan of the brain. N.B. : The above Results were Read Back by Lon Eric MD to Dr Betzy DO, and understanding confirmed on 11/29/2022 13:35:18 (ET). Electronically Signed: Lon Eric MD at 13:36 EDT ,
--- NOTE | 2022-11-29 13:15 | CT_ITS ---
STUDY: CTA HEAD AND NECK WITH CONTRAST REASON FOR EXAM: Female, 57 years old. Neuro deficit, acute, stroke suspected RADIATION DOSAGE (If Supplied By Facility): CTDIvol = ( 20.31 ) mGy, DLP = ( 772.05 ) mGycm TECHNIQUE: CT angiography was performed with a multi-detector CT scanner. Data acquisition was obtained from the skull base through the vertex following intravenous administration of IV 100mL [id number]-[id number]. MIP images were reconstructed from the axial data set. Post-processing of the angiographic images was performed, with multiplanar reformation and 3D reconstruction. Individualized dose optimization techniques were used for this CT. COMPARISON: No relevant priors. FINDINGS: Normal bilateral petrous carotid arteries. Normal right cavernous carotid artery with a normal supraclinoid bifurcation. Normal left cavernous carotid artery with a normal supraclinoid bifurcation. Normal right A1 segments of the anterior cerebral artery. Normal left A1 segments of the anterior cerebral artery. Normal intact anterior communicating artery (ACOM). Normal bilateral A2 segments of the anterior cerebral arteries. Normal right M1 and M2 segments of the middle cerebral arteries, with a normal M1 bifurcation. Normal left M1 and M2 segments of the middle cerebral arteries, with a normal M1 bifurcation. Normal right posterior communicating artery (PCOM). Normal left posterior communicating artery (PCOM). Normal bilateral vertebral arteries. Normal basilar artery with a normal basilar bifurcation. The visualized bilateral superior cerebellar (SCA) arteries are normal. Normal bilateral P1, P2 and visualized P3 segments of the posterior cerebral arteries. There is no demonstrated aneurysm of the [place]. There is no demonstrated abnormality of the visualized brain. Mucosal thickening at the base of the maxillary sinus bilaterally. AORTIC ARCH: Normal visualized aortic arch. Normal origins of the brachiocephalic, left common carotid, and left subclavian arteries. RIGHT CAROTID ARTERIES: Normal right common carotid artery (CCA). Normal right common carotid bulb. Normal origin of the right internal carotid (ICA) artery without a hemodynamically significant stenosis. Normal visualized cervical portion of the right internal carotid artery. Normal origin of the right external carotid artery (ECA). LEFT CAROTID ARTERIES: Normal left common carotid artery (CCA). Normal left common carotid bulb. Normal origin of the left internal carotid (ICA) artery without a hemodynamically significant stenosis. Normal visualized cervical portion of the left internal carotid artery. Normal origin of the left external carotid artery (ECA). VERTEBRAL ARTERIES: Normal bilateral vertebral arteries. CT/STROKE CTA Head AND Neck W/Con IMPRESSION: Normal CTA Head and neck with contrast. N.B. : The above Results were Read Back by Lon Eric MD to Brendan Bo and understanding confirmed on 11/29/2022 13:37:10 (ET). Electronically Signed: Lon Eric MD at 13:38 EDT ,
[2022-11-29 13:20] LABS: Absolute Lymphocyte Count 2.58 X10^3/uL (0.83-4.51); Absolute Neutrophil Count 4.4 X10^3/uL (2.0-7.7); Basophil# 0.05 X10^3/uL; Basophil% 0.6 % (0-1); Eosinophil# 0.33 X10^3/uL; Hematocrit 42.7 % (37-47); Hemoglobin 13.7 g/dL (12.0-15.0); Lymphocyte # 2.58 X10^3/ul (0.83-4.51); Lymphocyte % 31.4 % (19-41); Mean Corp Hgb Conc 32.1 g/dL (32-36); Mean Corpuscular Hgb 29.8 pg (27.0-32.0); Mean Corpuscular Volume 92.8 fL (81-99); Mean Platelet Vol. 10.5 fl (6.2-12.0); Monocyte# 0.74 X10^3/uL; NRBC Flagged by Analyzer 0 % (0-5); Neutrophil # 4.43 X10^3/uL (2.7-7.7); Neutrophil % 53.9 % (47-70); Platelet Count 304 K/mm3 (150-450); RBC Distribution Width CV 12.5 % (11.6-14.6); RBC Distribution Width SD 42.5 fl (35.1-43.9); White Blood Count 8.2 K/mm3 (4.4-11.0)
[2022-11-29 13:35] LABS: Prothrombin Time (Protime)PT. 12.9 SECONDS (11.7-14.9)
[2022-11-29 13:38] LABS: Anion Gap 5 (5-15); BUN 14 mg/dL (7-18); BUN/Creat Ratio 17.3 RATIO (10-20); Calcium,Total 9.5 mg/dL (8.5-10.1); Chloride 105 mmol/L (98-107); Creatinine, Serum 0.81 mg/dL (0.55-1.02); EST Glomerular Filtration Rate 78 mL/min (>60); Est Glom Filt Rate - Afr Amer 94 mL/min (>60); Estimated Creatinine Clearance 61.34 ml/min; Glucose 203 mg/dL (74-106); Potassium 3.6 mmol/L (3.5-5.1); Sodium Level 137 mmol/L (136-145); Troponin-I HS 4 pg/mL (3.0-54.0)
[2022-11-29] MEDS: Ondansetron 4 MG/2 ML Vial IV ×2 (13:54→17:22)
--- NOTE | 2022-11-29 14:00 | ED.RN ---
Pt unsure of tenecteplase administration at this time. Asked to have o and m supervisor in to discuss the situation before going forward. Delay in administration of medication d/t ongoing discussion between pt and support peoplel.
--- NOTE | 2022-11-29 14:05 | ED.VIS.STROK ---
HPI History of Present Illness Chief Complaint: Stroke Alert Informant: patient Onset/Context/Timing Onset: Today Context: Sudden Onset Timing: Continuous Onset: Approximately 45 minutes prior to arrival Worsened by: Nothing Relieved by: Nothing Associated Symptoms Associated Symptoms: Positive for Headache Narrative Narrative: Patient presents with peripheral vision loss and floaters in both eyes. Patient states the peripheral part of her vision is black. Patient states that she sees blood in the rest of her vision. Patient states this began approximately 45 minutes prior to arrival. Patient does admit to a mild headache. Patient denies any difficulty speaking or difficulty swallowing. Patient denies any paresthesias or weakness. Patient denies any chest pain or shortness of breath. Patient denies any nausea or vomiting. [facility] Medical History Abnormal echocardiogram (03/23/18) Anemia Anxiety Anxiety and depression Arthritis Arthritis of left temporomandibular joint Asthma Atherosclerosis of [place] coronary artery of [place] heart without angina pectoris Cardiology follow-up encounter Colon cancer screening Essential hypertension H/O bronchitis History of echocardiogram History of edema History of irregular heartbeat History of steroid therapy Hyperglycemia Hypertension Hypertension Hypothyroidism Left ventricular dysfunction Migraine headache Morbid obesity Nonischemic cardiomyopathy Nonrheumatic mitral (valve) insufficiency Nonrheumatic tricuspid (valve) insufficiency Normal stress echocardiogram Obesity Otitis media Post-menopausal Preventative health care Pure hypercholesterolemia Shortness of breath Shortness of breath on exertion Sinusitis Syncope Thyroid disease Thyroid disorder Vitiligo Wears glasses Home Medications ferrous sulfate 325 mg (65 mg iron) tablet 650 mg PO QODAY SUPPLEMENT 03/11/21 [History Last Taken 11/28/22] albuterol sulfate 90 mcg/actuation aerosol inhaler 1 - 2 puff inhalation Q6H PRN SHORTNESS OF BREATH 11/29/22 [History Last Taken Unknown] aspirin 81 mg tablet,delayed release (Adult Aspirin Regimen) 81 mg PO DAILY HEART HEALTH 11/29/22 [History Last Taken 11/28/22] escitalopram oxalate 10 mg tablet 10 mg PO Q3D DEPRESSION 11/29/22 [History Last Taken 11/27/22] levothyroxine 150 mcg tablet 150 mcg PO DAILY THYROID 11/29/22 [History Last Taken 11/28/22] metoprolol tartrate 25 mg tablet 25 mg PO DAILY BLOOD PRESSURE 11/29/22 [History Last Taken 11/28/22] Allergy/AdvReac Type Severity Reaction Status Date / Time losartan Allergy Intermediate muscles Verified 11/29/22 13:01 locked up Sulfa (Sulfonamide Allergy Hives Verified 11/29/22 13:01 Antibiotics) rosuvastatin [From Crestor] AdvReac Severe Lymphadenopathy, Verified 11/29/22 13:01 edema, hyperthyroid atorvastatin [From Lipitor] AdvReac Intermediate Muscle Verified 11/29/22 13:01 aches/myalgias Family History Father CAD (coronary artery disease) Diabetes Dementia Heart disease Mother CAD (coronary artery disease) Hypertension Thyroid disorder Heart disease Sister Diabetes Type II Thyroid disorder Colon polyps Crohn's disease Sister Diabetes Type II Thyroid disorder Surgical History History of cardiac catheterization History of cholecystectomy History of colonoscopy History of laparoscopy History of left heart catheterization Hx of laparoscopy Stented coronary artery (04/19/18) Social History Smoking Status: Never smoker alcohol intake: current alcohol intake frequency: holidays/special occasions only substance use type: does not use caffeine: Yes Type: coffee Number of servings: 2 what type of physical activity do you participate in: none seatbelt use: always do you feel safe at home: Yes additional social history: - Sonny LANDEROS LETI ED Constitutional Constitutional ED: Denies chills or fever(s) Eyes Eyes: Reports blurry vision and change in vision; Denies diplopia ENT ENT ED: Denies rhinorrhea or sore throat Cardiovascular Cardiovascular: Denies chest pain or palpitations Respiratory/Chest Respiratory/Chest: Denies cough or dyspnea Gastrointestinal Gastrointestinal: Denies nausea or vomiting Genitourinary Genitourinary ED: Denies dysuria or hematuria Musculoskeletal Musculoskeletal: Denies back pain or neck pain Integumentary Denies abscess or rash Neurologic Neurologic: Reports headache(s); Denies weakness Allergic/Immunologic Allergic/Immunologic ED: Denies mouth swelling or urticaria EXAM Physical Exam Const Vital Signs: 11/29/22 13:00 11/29/22 13:27 11/29/22 14:07 Temperature 97.0 F L Temperature Source Temporal Pulse Rate 78 Respiratory Rate 15 Blood Pressure 199/106 H 146/106 H Blood Pressure Mean 137 Blood Pressure Source Blood Pressure Position Blood Pressure Location Pulse Ox 97 Oxygen Delivery Method Room Air Room Air 11/29/22 14:07 11/29/22 14:22 11/29/22 14:05 Temperature 97.7 F L 97.8 F Temperature Source Core Core Pulse Rate 87 79 80 Respiratory Rate 22 H 12 13 Blood Pressure 167/86 H 167/84 H 146/106 H Blood Pressure Mean 113 111 119 Blood Pressure Source Monitor Monitor Blood Pressure Position Semi-Fowlers Semi-Fowlers Blood Pressure Location Left Arm Left Arm Pulse Ox 97 96 97 Oxygen Delivery Method Room Air Room Air Room Air Positive well nourished, well developed and obese General Appearance ED: well developed and NAD Nutritional Appearance: obese HEENT Reports moist mucous membranes Eyes PERRL and EOMs intact bilaterally Eyes Narrative: Funduscopic examination is benign. There is no papilledema. There is no retinal hemorrhage or vitreal hemorrhage noted. Neck supple and no JVD Resp normal respiratory effort and clear to auscultation bilaterally Cardio Rate: regular rate Rhythm: regular rhythm GI normal to inspection, nondistended, normoactive bowel sounds, soft to palpation and non-tender Back/Spine no CVA tenderness Neuro oriented x3 and CN's II-XII intact bilaterally Neuro Narrative: There is mild decrease sensation to light touch in the left upper extremity. Nadja Coma Scale: document GCS findings Spontaneous Obeys Commands Oriented 15 Sensorium / Orientation: alert Speech: speech normal Motor Exam: strength 5/5 throughout Psych mental status grossly normal Skin no wounds NIHSS NIHSS Initial: 1a Level of Consciousness: 0 1b LOC Questions (Score 2 if aphasic/stupor): 0 1c LOC Commands (Only score 1st attempt): 0 2 Best Gaze (If aphasic, use reflexive mvmts.): 0 3 Visual: 0 4 Facial Palsy: 1 5 Motor Arm Right (UN = amputation/fusion): 0 5 Motor Arm Left: 0 6 Motor Leg Right: 0 6 Motor Leg Left: 0 7 Limb ataxia (Only + if out of proportion): 0 8 Sensory (Aphasia/stupor=0 or 1, coma=2): 1 9 Best Language: 0 10 Dysarthria (mute, coma=2, intubated=UN): 0 11 Extinction and Inattention (only scored if +): 0 Total Score: 2 MDM MDM MDM Narrative Medical decision making narrative: Differential diagnosis includes acute stroke, migraine headache, TIA, retinal detachment, and electrolyte abnormality. Stroke alert was called prehospital. CT scan of the brain and CTA of the head and neck will be obtained to assess for stroke and large vessel occlusion. EKG will be obtained to assess for cardiac dysrhythmia and cardiac ischemia. CBC will be obtained to assess for leukocytosis and anemia. Basic metabolic profile will be obtained to assess for electrolyte abnormality, renal function, and hyper and hypoglycemia. High-sensitivity troponin will be obtained to assess for cardiac ischemia. PT with INR and PTT will be obtained to assess for coagulopathy. Chest x-ray will be obtained to assess for pneumonia, pneumothorax, and widened mediastinum. Lab Data Attestation: I reviewed the patient's lab results. Lab results narrative: CBC was reviewed and was within normal limits. Basic metabolic profile was reviewed and was within normal limits. High-sensitivity troponin was reviewed and was normal. PT was INR and PTT were reviewed and were within normal limits. Labs: Laboratory Results - last 24 hr 11/29/22 11/29/22 11/29/22 13:05 13:05 13:05 WBC 8.2 RBC 4.60 Hgb 13.7 Hct 42.7 MCV 92.8 MCH 29.8 MCHC 32.1 RDW Std Deviation 42.5 RDW Coeff of Evan 12.5 Plt Count 304 MPV 10.5 Immature Gran % (Auto) 1.100 H Neut % (Auto) 53.9 Lymph % (Auto) 31.4 [place] % (Auto) 9.0 Eos % (Auto) 4.0 Baso % (Auto) 0.6 Absolute Neuts (auto) 4.4 Absolute Lymphs (auto) 2.58 Nucleated RBC % 0 PT 12.9 INR 1.0 APTT 27.0 Sodium 137 Potassium 3.6 Chloride 105 Carbon Dioxide 27.0 Anion Gap 5 BUN 14 Creatinine 0.81 Estim Creat Clear Calc 61.34 Est GFR (MDRD) Af Amer 94 Est GFR (MDRD) Non-Af 78 BUN/Creatinine Ratio 17.3 Glucose 203 H Calcium 9.5 Troponin I High Sens 4 POC Glucose 11/29/22 13:17 WBC RBC Hgb Hct MCV MCH MCHC RDW Std Deviation RDW Coeff of Evan Plt Count MPV Immature Gran % (Auto) Neut % (Auto) Lymph % (Auto) [place] % (Auto) Eos % (Auto) Baso % (Auto) Absolute Neuts (auto) Absolute Lymphs (auto) Nucleated RBC % PT INR APTT Sodium Potassium Chloride Carbon Dioxide Anion Gap BUN Creatinine Estim Creat Clear Calc Est GFR (MDRD) Af Amer Est GFR (MDRD) Non-Af BUN/Creatinine Ratio Glucose Calcium Troponin I High Sens POC Glucose 239 H Radiography Chest X-Ray - ED: 1 View, Read by ED Physician, Read by Radiologist and No Acute Disease Diagnostic Testing: Clinical Impression(s) from Imaging Studies Brain CT 11/29/22 13:03 IMPRESSION: Normal unenhanced CT scan of the brain. N.B. : The above Results were Read Back by Lon Eric MD to Dr Betzy DO, and understanding confirmed on 11/29/2022 13:35:18 (ET). Electronically Signed: Lon Eric MD at 13:36 EDT , ADDENDUM: 11/29/22 1343 IMPRESSION: Normal unenhanced CT scan of the brain. N.B. : The above Results were Read Back by Lon Eric MD to Dr Betzy DO, and understanding confirmed on 11/29/2022 13:35:18 (ET). Electronically Signed: Lon Eric MD at 13:36 EDT , Head/Neck CTA 11/29/22 13:15 IMPRESSION: Normal CTA Head and neck with contrast. N.B. : The above Results were Read Back by Lon Eric MD to Brendan Bo and understanding confirmed on 11/29/2022 13:37:10 (ET). Electronically Signed: Lon Eric MD at 13:38 EDT , ADDENDUM: 11/29/22 1345 IMPRESSION: Normal CTA Head and neck with contrast. N.B. : The above Results were Read Back by Lon Eric MD to Brendan Betzy and understanding confirmed on 11/29/2022 13:37:10 (ET). Electronically Signed: Lon Eric MD at 13:38 EDT , CT scan of the brain was obtained. There is no acute intracranial abnormality. This was interpreted by the radiologist and was also independently reviewed by myself. CTA of the head and neck was obtained. There is no evidence of large vessel occlusion. There is no aneurysm noted. There is no active bleeding noted. This was interpreted by the radiologist and was also independently reviewed by myself. Portable 1 view chest x-ray was obtained. On my independent interpretation, lung adams are clear. There is normal cardiac silhouette. Bony thorax is normal. There is no acute process noted. Radiologist also interpreted the x-ray and agrees. EKG Initial EKG: Attestation: I personally reviewed and interpreted this EKG as follows: Interpretation: Sinus Rhythm (84) and No Acute Injury Pattern Comments: EKG was obtained. On my independent interpretation, it showed a normal sinus rhythm with a rate of 84. MT interval, and QRS intervals were normal. QTc interval was slightly prolonged at 489 ms. [place] was normal. There are no acute ST or T wave changes. Prior EKG tracings: available for review Prior: Unchanged (04/20/2018) Management Discussion w/another healthcare provider: Hospitalist, Cotton Ball Machine Tender (Stroke neurologist, Dr. Resendez) and Radiologist Treatment and Re-Evaluation Narrative: Patient was evaluated by stroke neurologist from [facility]. He recommended proceeding with tenecteplase. Risks and benefits of tenecteplase were discussed with the patient. She is agreeable with proceeding with tenecteplase. Case will be discussed with the hospitalist for admission here. Patient is agreeable with the plan. All questions were answered. 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
[2022-11-29] MEDS: 0.9% Saline Lock 10 ML Syringe IV ×2 (14:06→14:08)
[2022-11-29] MEDS: Tenecteplase 25 MG in Syringe 1 EACH 3600 MG IV (14:07)
[2022-11-29] MEDS: 0.9% Normal Saline 1,000 ML 100 ML IV (14:29)
[2022-11-29 14:45] LABS: Bedside Glucose 239 mg/dL (74-106)
--- NOTE | 2022-11-29 15:00 | ECHOD_ITS ---
Reason For Study: TIA/Stroke Procedure This was a 2D Doppler, Color Flow transthoracic echocardiogram. Exam performed portable in ICU/CCU. Left Ventricle Normal LV size. Left ventricular systolic function is normal. The estimated ejection fraction is 53 %. Stage 1 diastolic dysfunction. No regional wall motion abnormalities noted. Right Ventricle Normal RV size. Normal systolic function. Atria Normal left atrium. Normal right atrium. Bubble contrast study negative for right to left interatrial shunt. Tricuspid Valve Normal tricuspid valve. Mild (1+) tricuspid valve insufficiency. Pulmonary artery systolic pressure is 40 mmHg. Pulmonic Valve Normal pulmonic valve. Great Vessels Normal aortic root. The pulmonary artery is normal size. Normal inferior vena cava. Pericardium/Pleural No pericardial effusion. Medication Performed a rapid injection of agitated mix of 9 cc saline and 1cc air to assess for atrial septal defect. MMode/2D Measurements & Calculations LVIDd: 4.4 cm IVSd: 1.0 cm Ao root diam: 2.9 cm LVIDs: 3.2 cm LVPWd: 0.89 cm RVDd: 4.1 cm FS: 27.8 % LAV(MOD-bp): 34.7 ml LVAd ap4: 23.8 cm2 SV(MOD-sp4): 39.1 ml LAV(MOD-bp) Indexed: 16.8 ml/m2 LVLd ap4: 7.3 cm LAV(MOD-sp2): 33.1 ml EDV(MOD-sp4): 64.4 ml LAV(MOD-sp4): 35.0 ml EDV(sp4-el): 65.7 ml LVAs ap4: 13.7 cm2 LVLs ap4: 6.2 cm ESV(MOD-sp4): 25.3 ml ESV(sp4-el): 25.4 ml EF(MOD-sp4): 60.7 % EF(sp4-el): 61.3 % SV(sp4-el): 40.3 ml LA dimension(2D): 4.1 cm LA A4 area: 15.4 cm2 RA A4 area: 18.1 cm2 Time Measurements MV dec time: 0.24 sec Doppler Measurements & Calculations MV E max nikhil: 81.5 cm/sec Lat Peak E' Nikhil: 9.5 cm/sec Med Peak E' Nikhil: 7.2 cm/sec MV A max nikhil: 94.2 cm/sec E/E' lat: 8.5 E/E' med: 11.4 MV E/A: 0.86 Ao V2 max: 146.1 cm/sec LV V1 max: 116.3 cm/sec MV dec slope: 345.6 cm/sec2 Ao max P.5 mmHg LV V1 max P.4 mmHg Ao V2 mean: 96.4 cm/sec Ao mean P.3 mmHg Ao V2 VTI: 31.4 cm PA V2 max: 91.5 cm/sec PI end-d nikhil: 99.4 cm/sec TR max nikhil: 302.8 cm/sec TR max P.7 mmHg ECHO/Echo Complete Interpretation Summary Normal LV size. Left ventricular systolic function is normal. The estimated ejection fraction is 53 %. Bubble contrast study negative for right to left interatrial shunt. Stage 1 diastolic dysfunction. Pulmonary artery systolic pressure is 40 mmHg. Ordering Physician: Vee Almaraz Referring Physician: Camilla Castaneda Performed By: Rebekah Goode, SHAYY, RVT
--- NOTE | 2022-11-29 15:02 | PCM.HP.STD ---
HPI - General General Date of Admission: 11/29/22 Date of Service: 11/29/22 Chief Complaint: Bitemporal hemianopsia/left upper and lower extremity paresthesias/left facial droop HPI Narrative MIAN WOLFE, is a 57 F who presented to the emergency department at [facility] on 11/29/2022 with the complaint of bitemporal hemianopsia that started about 45 minutes prior to presentation. The patient states it is almost like she sees blood swirling in her visual field. Interestingly enough, on clinical exam she has no field visual cut. On exam she was also found to have some left upper and lower extremity sensory change and a mild left facial droop. Patient does not have any history of visual issues or stroke/TIA. She does have history of coronary disease, hyperlipidemia which she is intolerant of statins, and hypothyroidism. Stroke team was called prior to arrival and she was evaluated by the stroke neurologist at [facility]. Based on the findings tenecteplase was recommended and given in the emergency department. At the time of my evaluation her sensory issues had resolved, she still had a mild left facial droop and was still complaining of visual field issues however had a normal visual field exam. Vital signs on presentation demonstrated temperature of 97 degrees, heart rate 78, blood pressure initially was 199/106 but subsequent evaluations have been in the 140s to 160s systolic and 80s to 100 diastolic, respiratory rate of 15 and oxygen saturation of 97% on room air. Her CBC was unremarkable. Coags were normal. Chemistry panel was unremarkable other than an elevated serum glucose of 203. She does not have a history of diabetes. Troponin was 4. EKG shows normal sinus rhythm with normal intervals and no ST-T wave changes concerning for acute ischemia. CT of the head was unremarkable for any acute findings. CTA of the head neck was unremarkable. She was given tenecteplase at 2:07 and request for admission to the intensive care unit was made. Initial NIH was 2 with one-point for sensory and one-point for left facial palsy. FORMERLY [facility], [facility] Medical History Abnormal echocardiogram (03/23/18) Anemia Anxiety Anxiety and depression Arthritis Arthritis of left temporomandibular joint Asthma Atherosclerosis of [place] coronary artery of [place] heart without angina pectoris Cardiology follow-up encounter Colon cancer screening Essential hypertension H/O bronchitis History of echocardiogram History of edema History of irregular heartbeat History of steroid therapy Hyperglycemia Hypertension Hypertension Hypothyroidism Left ventricular dysfunction Migraine headache Morbid obesity Nonischemic cardiomyopathy Nonrheumatic mitral (valve) insufficiency Nonrheumatic tricuspid (valve) insufficiency Normal stress echocardiogram Obesity Otitis media Post-menopausal Preventative health care Pure hypercholesterolemia Shortness of breath Shortness of breath on exertion Sinusitis Syncope Thyroid disease Thyroid disorder Vitiligo Wears glasses Home Medications ferrous sulfate 325 mg (65 mg iron) tablet 650 mg PO QODAY 03/11/21 [History Last Taken Unknown] albuterol sulfate 90 mcg/actuation aerosol inhaler 1 - 2 puff inhalation Q6H PRN SHORTNESS OF BREATH 11/29/22 [History Last Taken Unknown] aspirin 81 mg tablet,delayed release (Adult Aspirin Regimen) 81 mg PO DAILY HEART HEALTH 11/29/22 [History Last Taken 11/28/22] escitalopram oxalate 10 mg tablet 10 mg PO Q3D DEPRESSION 11/29/22 [History Last Taken 11/27/22] levothyroxine 150 mcg tablet 150 mcg PO DAILY THYROID 11/29/22 [History Last Taken 11/28/22] metoprolol tartrate 25 mg tablet 25 mg PO DAILY BLOOD PRESSURE 11/29/22 [History Last Taken 11/28/22] Allergy/AdvReac Type Severity Reaction Status Date / Time losartan Allergy Intermediate muscles Verified 11/29/22 13:01 locked up Sulfa (Sulfonamide Allergy Hives Verified 11/29/22 13:01 Antibiotics) rosuvastatin [From Crestor] AdvReac Severe Lymphadenopathy, Verified 11/29/22 13:01 edema, hyperthyroid atorvastatin [From Lipitor] AdvReac Intermediate Muscle Verified 11/29/22 13:01 aches/myalgias Family History Father CAD (coronary artery disease) Diabetes Dementia Heart disease Mother CAD (coronary artery disease) Hypertension Thyroid disorder Heart disease Sister Diabetes Type II Thyroid disorder Colon polyps Crohn's disease Sister Diabetes Type II Thyroid disorder Surgical History History of cardiac catheterization History of cholecystectomy History of colonoscopy History of laparoscopy History of left heart catheterization Hx of laparoscopy Stented coronary artery (04/19/18) Social History Smoking Status: Never smoker alcohol intake: current alcohol intake frequency: holidays/special occasions only substance use type: does not use caffeine: Yes Type: coffee Number of servings: 2 what type of physical activity do you participate in: none seatbelt use: always do you feel safe at home: Yes additional social history: - Sonny LETI Constitutional Constitutional: Denies anorexia, change in weight, chills, fatigue, fever(s), malaise, night sweats, weakness or other Eyes Eyes: Reports change in vision bilateral and loss of vision; Denies blurry vision, change in eye color, discharge from eye(s), double vision, erythema, eye pain or other ENT HEENT: Denies abnormal hearing, dysphagia, ear pain, epistaxis, headache(s), hearing loss, nasal congestion, nasal discharge, post nasal drip, sinus pressure, sore throat or other Cardiovascular Cardiovascular: Denies chest pain, claudication, dyspnea on exertion, edema, lightheadedness, orthopnea, palpitations, paroxysmal nocturnal dyspnea, rapid heart rate, syncope or other Respiratory/Chest Respiratory/Chest: Denies cough, dyspnea, excessive phlegm production, hemoptysis, productive cough, shortness of breath at rest, shortness of breath with exertion, wheezing or other Gastrointestinal Gastrointestinal: Denies abdominal pain, coffee ground emesis, constipation, diarrhea, dyspepsia, hematemesis, hematochezia, loose stools, melena, nausea, vomiting or other Genitourinary Genitourinary: Denies burning urination, difficulty urinating, dysuria, hematuria, nocturia, urinary frequency, urinary hesitancy, urinary incontinence, urinary urgency or other Musculoskeletal Musculoskeletal: Denies arthralgias, back pain, joint pain, joint stiffness, joint swelling, myalgias, neck pain or other Neurologic Neurologic: Reports paresthesias and other Psychiatric Psychiatric: Reports anxiety; Denies depression, homicidal ideation, suicidal ideation or other Endocrine Endocrinology: Denies change in body appearance, cold intolerance, excessive sweating, heat intolerance, polydipsia, polyuria or other Hematologic/Lymphatic Hematologic/Lymphatic: Denies anemia, easy bleeding, easy bruising, lymphadenopathy or other Allergic/Immunologic Allergic/Immunologic: Denies rhinitis, hives, eczemia, asthma or other Vital Signs Vital Signs Vital Signs: 11/29/22 13:00 11/29/22 13:27 11/29/22 14:07 Temperature 97.0 F L Temperature Source Temporal Pulse Rate 78 Respiratory Rate 15 Blood Pressure 199/106 H 146/106 H Blood Pressure Mean 137 Blood Pressure Source Blood Pressure Position Blood Pressure Location Pulse Ox 97 Oxygen Delivery Method Room Air Room Air 11/29/22 14:07 11/29/22 14:22 11/29/22 14:05 Temperature 97.7 F L 97.8 F Temperature Source Core Core Pulse Rate 87 79 80 Respiratory Rate 22 H 12 13 Blood Pressure 167/86 H 167/84 H 146/106 H Blood Pressure Mean 113 111 119 Blood Pressure Source Monitor Monitor Blood Pressure Position Semi-Fowlers Semi-Fowlers Blood Pressure Location Left Arm Left Arm Pulse Ox 97 96 97 Oxygen Delivery Method Room Air Room Air Room Air Weight Weight: 109.3 kg Body Mass Index (BMI) 44.0 Physical Exam Const alert, oriented x3, no apparent distress, healthy appearing and well nourished Constitutional Narrative: Middle-aged white female, morbidly obese, sitting in bed, appears comfortable, nontoxic, nursing at bedside General Appearance: cooperative HEENT normocephalic, head/scalp atraumatic, hearing grossly normal bilaterally and moist oral mucous membranes HEENT Narrative: Mallampati 3, no thrush, dentition is good Eyes PERRL, EOMs intact bilaterally and conjunctivae normal Eyes Narrative: No scleral icterus, no visual field cuts on exam Neck no lymphadenopathy, supple, no JVD and no carotid bruits Neck Narrative: Trachea midline Resp normal respiratory effort, no retractions, no use of accessory muscles and clear to auscultation bilaterally Auscultation: Negative for rales, rhonchi or wheezes Cardio regular rate, regular rhythm, S1 normal heart sound, S2 normal heart sound, no murmurs, no rub, no gallops and no clicks GI normal to inspection, nondistended, normoactive bowel sounds, soft to palpation and non-tender Extremity no clubbing, cyanosis or edema Extremity Narrative: 2+ pedal pulses Skin no rashes or lesions noted, no wounds, skin turgor normal, no jaundice, no petechiae and no mottling Neuro oriented x3, No CN's II-XII intact bilaterally, moves all extremities and no focal motor deficits Neuro Narrative: Mild left facial droop but all other cranial nerves unremarkable, visual adams intact, no sensory deficits Sensorium / Orientation: awake, alert, oriented to person, oriented to place and oriented to time Coordination / Balance: [id number] test normal and [id number] test normal Speech: speech normal Psych Mood & Affect: anxious Results Lab / Micro Data Result Diagrams: 11/29/22 13:05 11/29/22 13:05 Labs: Laboratory Results - last 24 hr 11/29/22 13:05: WBC 8.2, RBC 4.60, Hgb 13.7, Hct 42.7, MCV 92.8, MCH 29.8, MCHC 32.1, RDW Std Deviation 42.5, RDW Coeff of Evan 12.5, Plt Count 304, MPV 10.5, Immature Gran % (Auto) 1.100 H, Neut % (Auto) 53.9, Lymph % (Auto) 31.4, [place] % (Auto) 9.0, Eos % (Auto) 4.0, Baso % (Auto) 0.6, Absolute Neuts (auto) 4.4, Absolute Lymphs (auto) 2.58, Nucleated RBC % 0 11/29/22 13:05: PT 12.9, INR 1.0, APTT 27.0 11/29/22 13:05: Sodium 137, Potassium 3.6, Chloride 105, Carbon Dioxide 27.0, Anion Gap 5, BUN 14, Creatinine 0.81, Estim Creat Clear Calc 61.34, Est GFR (MDRD) Af Amer 94, Est GFR (MDRD) Non-Af 78, BUN/Creatinine Ratio 17.3, Glucose 203 H, Calcium 9.5, Troponin I High Sens 4 11/29/22 13:17: POC Glucose 239 H Radiology Impression Brain CT 11/29/22 13:03 IMPRESSION: Normal unenhanced CT scan of the brain. N.B. : The above Results were Read Back by Lon Eric MD to Dr Betzy DO, and understanding confirmed on 11/29/2022 13:35:18 (ET). Electronically Signed: Lon Eric MD at 13:36 EDT , ADDENDUM: 11/29/22 1343 IMPRESSION: Normal unenhanced CT scan of the brain. N.B. : The above Results were Read Back by Lon Eric MD to Dr Betzy DO, and understanding confirmed on 11/29/2022 13:35:18 (ET). Electronically Signed: Lon Eric MD at 13:36 EDT , Head/Neck CTA 11/29/22 13:15 IMPRESSION: Normal CTA Head and neck with contrast. N.B. : The above Results were Read Back by Lon Eric MD to Brendan Bo and understanding confirmed on 11/29/2022 13:37:10 (ET). Electronically Signed: Lon Eric MD at 13:38 EDT , ADDENDUM: 11/29/22 1345 IMPRESSION: Normal CTA Head and neck with contrast. N.B. : The above Results were Read Back by Lon Eric MD to Brendan Bo and understanding confirmed on 11/29/2022 13:37:10 (ET). Electronically Signed: Lon Eric MD at 13:38 EDT , Assessment & Plan Assessment/Plan (1) Facial droop: (2) Vision changes: (3) Paresthesias: (4) Hyperglycemia: PLAN: Plan Left-sided facial droop/visual changes/left-sided paresthesias -Concerning for acute stroke versus TIA -Stroke consult made in the emergency department and tenecteplase recommended and given at 2:07 PM -We will check follow-up MRI tomorrow afternoon 24 hours after tenecteplase given -Check echocardiogram -Bedrest until 24 hours post tenecteplase -Hold aspirin/subcu DVT prophylaxis until follow-up MRI performed to ensure no hemorrhagic transformation -Unable to dose statin as patient has statin intolerances -Check lipids -Check hemoglobin A1c -PT/OT consultation -SOC consultation after imaging done tomorrow Bitemporal hemianopsia -Patient reports visual field cut however none is present on exam -If persistent would recommend outpatient ophthalmology versus inpatient ophthalmology consultation -Really the only lesion that could cause this would be an optic chiasm lesion and there is no abnormality noted on CT -MRI pending for tomorrow Hyperglycemia -Patient without history of diabetes -Check hemoglobin A1c Hypothyroidism -Continue home Synthroid -Check TSH History of peripartum/ cardiomyopathy -Resolved CAD/HTN/HPL -Patient follows with Dr. Chino previously -status post LAD PCI/BLANCO (2018 with a 3.0x28 Promus drug-eluting stent) -Patient not on statin secondary to statin intolerance -Continue home metoprolol -As needed occasion avail bowel for the elevated systolic blood pressures however while for some permissive hypertension -May need up titration or new medication for antihypertensive added depending on blood pressure Depression -Continue home escitalopram Asthma -Continue as needed albuterol Morbid obesity -BMI 44.1 -Recommend weight loss -Complicates treatment, prognosis, outcomes -Patient should be evaluated for sleep apnea as an outpatient Vitiligo -Chronic stable DVT prophylaxis -SCDs -No chemoprophylaxis for 24 hours secondary to tenecteplase dosing CODE STATUS Full code Charges/Coding Visit Charges Inpatient E&M: 38743 Init Hosp L3
--- NOTE | 2022-11-29 15:17 | RAD_ITS ---
STUDY: X-RAY CHEST REASON FOR EXAM: Female, 57 years old. Neuro deficit, acute, stroke suspected TECHNIQUE: Single AP portable view of the chest. COMPARISON: Comparison is made with prior study August 04, 2021. FINDINGS: EKG electrodes are seen. The lungs are clear and expanded. There is no demonstrated pleural abnormality. Normal size heart. Normal mediastinum and reynaldo. Normal visualized pulmonary arteries. Normal visualized aortic arch and descending thoracic aorta. There are diffuse degenerative changes of the visualized thoracic spine. There is degenerative osteoarthritis of the bilateral shoulders. There is no demonstrated abnormality of the visualized soft tissue structures of the upper abdomen. RAD/Chest 1 View IMPRESSION: The lungs are clear. No acute abnormality is present. Electronically Signed: Lon Eric MD at 15:37 EDT ,
--- NOTE | 2022-11-29 15:45 | ED.RN ---
Transporting pt to ICU at this time.
[2022-11-30] VITALS (26 sets, daily range): BP systolic 93–171; BP diastolic 49–97; PULSE 63–91; RESP 11–20; TEMP 35.9–36.8; O2SAT 93–99; BMI 43.0
[2022-11-30] MEDS: Acetaminophen 325 MG Tablet 650 MG PO ×2 (00:16→16:21)
[2022-11-30] MEDS: HYDROcodone Bitartrate/Apap 5/325 Tablet PO ×2 (04:14→18:24)
[2022-11-30 04:20] LABS: Absolute Lymphocyte Count 2.38 X10^3/uL (0.83-4.51); Absolute Neutrophil Count 4.1 X10^3/uL (2.0-7.7); Basophil# 0.04 X10^3/uL; Basophil% 0.5 % (0-1); Eosinophil# 0.29 X10^3/uL; Eosinophils% 3.9 % (0-5); Hematocrit 37.6 % (37-47); Hemoglobin 12.3 g/dL (12.0-15.0); Lymphocyte # 2.38 X10^3/ul (0.83-4.51); Lymphocyte % 31.8 % (19-41); Mean Corp Hgb Conc 32.7 g/dL (32-36); Mean Corpuscular Hgb 30.3 pg (27.0-32.0); Mean Corpuscular Volume 92.6 fL (81-99); Mean Platelet Vol. 10.5 fl (6.2-12.0); Monocyte# 0.68 X10^3/uL; Monocyte% 9.1 % (0-10); NRBC Flagged by Analyzer 0 % (0-5); Neutrophil # 4.06 X10^3/uL (2.7-7.7); Neutrophil % 54.2 % (47-70); Platelet Count 277 K/mm3 (150-450); RBC Distribution Width CV 12.7 % (11.6-14.6); RBC Distribution Width SD 43.2 fl (35.1-43.9); Red Blood Count 4.06 M/mm3 (4.2-5.4); White Blood Count 7.5 K/mm3 (4.4-11.0)
[2022-11-30] MEDS: Ondansetron 4 MG/2 ML Vial IV (04:47)
[2022-11-30] MEDS: 0.9% Saline Lock 10 ML Syringe IV (04:47)
[2022-11-30 04:52] LABS: ALB/GLOB Ratio 1.1 RATIO (0.9-2.4); AST(SGOT) 11 U/L (15-37); Alanine Aminotransfer ALT/SGPT 19 U/L (13-56); Albumin, Serum 3.2 g/dL (3.2-5.0); Alkaline Phosphatase 75 U/L (45-117); Anion Gap 3 (5-15); BUN 13 mg/dL (7-18); BUN/Creat Ratio 18.5 RATIO (10-20); Calcium,Total 8.6 mg/dL (8.5-10.1); Chloride 106 mmol/L (98-107); Cholesterol 146 mg/dL (200); EST Glomerular Filtration Rate 91 mL/min (>60); Est Glom Filt Rate - Afr Amer 111 mL/min (>60); Estimated Creatinine Clearance 70.98 ml/min; Globulin 2.9 g/dL (2.2-4.2); Glucose 131 mg/dL (74-106); High Density Lipoprotein 39 mg/dL; Magnesium 2.3 mg/dL (1.6-2.6); Potassium 3.7 mmol/L (3.5-5.1); Protein, Total 6.1 g/dL (6.4-8.2); Sodium Level 138 mmol/L (136-145); Thyroid Stim Hormone (TSH) 0.11 uIU/mL (0.358-3.74); Triglycerides 148 mg/dL; Very Low Density Lipoprotein 30 mg/dL (5-40)
[2022-11-30 05:02] LABS: Phosphorus 4.4 mg/dL (2.5-4.9)
[2022-11-30] MEDS: Levothyroxine 150 MCG Tablet PO (06:34)
--- NOTE | 2022-11-30 07:29 | EX.PCM.CONCC ---
Assessment & Plan Assessment/Plan (1) Vision changes: (2) Stroke: PLAN: Plan RECOMMENDATIONS: 1. Continue with post thrombolytic protocol 2. Attempt to schedule MRI for 2 PM [address] Pot[address] DC [address] order 3. Outpatient follow-up with ophthalmology 4. Blood pressure optimization 5. Okay to leave the intensive care unit following MRI if no complications 6. Will sign off from a critical care perspective unless complications of therapy IMPRESSIONS: 1. Acute CVA status post thrombolytic therapy Patient with known left-sided facial droop, visual changes and left-sided paresthesia on presentation. Patient has had a great response to tenecteplase with a current NIH of 0. Patient is still reporting some serpentine visual disturbance. Patient likely needs to have a follow-up with ophthalmology with pupillary dilation as an outpatient after discharge. Continue with postthrombolytic protocol. Potentially schedule patient for MRI at [address] be discontinued. Likely okay to leave the intensive care unit following imaging if no complications. 2. Hyperglycemia/hypothyroidism/CAD/hyperlipidemia/depression/morbid obesity Complicates care, management, recovery and prognosis. Okay to continue with baseline medications from my perspective. Patient would likely benefit from an outpatient sleep apnea work-up, but defer to patient. Hemoglobin A1c is currently pending, but patient does have some findings suggestive of at least insulin resistance. HPI Consult Data Date of Consult: 11/30/22 HPI Narrative Reason for Consultation: Status postthrombolytic therapy HPI Narrative: MIAN WOLFE is a 57 F, with past medical history listed below, who presents to [facility] on 11/29/2022 secondary to headache and peripheral vision loss. Patient reported that approximate 45 minutes prior to arrival she started to have a loss of peripheral vision and sees blood. Patient did have a mild headache, but has a history of headaches. Patient states this headache was slightly different. Patient's typical headaches are in the occipital region and her new headache was in the frontal/cephalic region. In the ER, patient was hypertensive at 199/106, but saturating well on room air and afebrile. Laboratory data showed a white blood cell count of 8.2, hemoglobin of 13.7 and normal coagulation and chemistry studies. Patient's glucose was slightly elevated at 203. Stroke alert was called and after conference with a stroke neurologist, patient was given tPA when his CTA showed no large vessel occlusion. Patient admitted to the intensive care unit for monitoring. Since being in the intensive care unit, patient's NIH has gone from a 2 to a 0. Patient states she continues to have a serpentine area of vision loss. Patient states her headache has improved somewhat. Patient is not reporting any nausea or vomiting associated with the headache. Patient has not had any double vision. Patient does not report a similar type of event. Patient does state that she sees an associate artistic director on a yearly basis, but has never seen an video game creator. Patient is not aware of ever having her eyes dilated. Patient is not reporting any sensory or motor deficits. Patient has not had any problems with dysphagia or dysarthria. Review of systems otherwise negative from a constitutional, HEENT, respiratory, cardiovascular, GI, genitourinary, musculoskeletal, skin, neurologic, psychiatric and hematologic system unless stated above. [facility] Medical History Abnormal echocardiogram (03/23/18) Anemia Anxiety Anxiety and depression Arthritis Arthritis of left temporomandibular joint Asthma Atherosclerosis of hughes coronary artery of hughes heart without angina pectoris Cardiology follow-up encounter Colon cancer screening Essential hypertension H/O bronchitis History of echocardiogram History of edema History of irregular heartbeat History of steroid therapy Hyperglycemia Hypertension Hypertension Hypothyroidism Left ventricular dysfunction Migraine headache Morbid obesity Nonischemic cardiomyopathy Nonrheumatic mitral (valve) insufficiency Nonrheumatic tricuspid (valve) insufficiency Normal stress echocardiogram Obesity Otitis media Post-menopausal Preventative health care Pure hypercholesterolemia Shortness of breath Shortness of breath on exertion Sinusitis Syncope Thyroid disease Thyroid disorder Vitiligo Wears glasses Home Medications ferrous sulfate 325 mg (65 mg iron) tablet 650 mg PO QODAY SUPPLEMENT 03/11/21 [History Last Taken 11/28/22] albuterol sulfate 90 mcg/actuation aerosol inhaler 1 - 2 puff inhalation Q6H PRN SHORTNESS OF BREATH 11/29/22 [History Last Taken Unknown] aspirin 81 mg tablet,delayed release (Adult Aspirin Regimen) 81 mg PO DAILY HEART HEALTH 11/29/22 [History Last Taken 11/28/22] escitalopram oxalate 10 mg tablet 10 mg PO Q3D DEPRESSION 11/29/22 [History Last Taken 11/27/22] levothyroxine 150 mcg tablet 150 mcg PO DAILY THYROID 11/29/22 [History Last Taken 11/28/22] metoprolol tartrate 25 mg tablet 25 mg PO DAILY BLOOD PRESSURE 11/29/22 [History Last Taken 11/28/22] Allergy/AdvReac Type Severity Reaction Status Date / Time losartan Allergy Intermediate muscles Verified 11/29/22 13:01 locked up Sulfa (Sulfonamide Allergy Hives Verified 11/29/22 13:01 Antibiotics) rosuvastatin [From Crestor] AdvReac Severe Lymphadenopathy, Verified 11/29/22 13:01 edema, hyperthyroid atorvastatin [From Lipitor] AdvReac Intermediate Muscle Verified 11/29/22 13:01 aches/myalgias Family History Father CAD (coronary artery disease) Diabetes Dementia Heart disease Mother CAD (coronary artery disease) Hypertension Thyroid disorder Heart disease Sister Diabetes Type II Thyroid disorder Colon polyps Crohn's disease Sister Diabetes Type II Thyroid disorder Surgical History History of cardiac catheterization History of cholecystectomy History of colonoscopy History of laparoscopy History of left heart catheterization Hx of laparoscopy Stented coronary artery (04/19/18) Social History Smoking Status: Never smoker alcohol intake: current alcohol intake frequency: holidays/special occasions only substance use type: does not use caffeine: Yes Type: coffee Number of servings: 2 what type of physical activity do you participate in: none seatbelt use: always do you feel safe at home: Yes additional social history: - Sonny Physical Exam Const alert, oriented x3, no apparent distress, healthy appearing and well nourished General Appearance: cooperative HEENT normocephalic, head/scalp atraumatic, hearing grossly normal bilaterally and moist oral mucous membranes HEENT Narrative: Mallampati 3, no thrush, dentition is good Eyes PERRL, EOMs intact bilaterally, conjunctivae normal and no scleral icterus Eyes Narrative: Visual acuity appears to be normal. Neck no lymphadenopathy, supple, no JVD and no carotid bruits Neck Narrative: Trachea midline Resp normal respiratory effort, no retractions, no use of accessory muscles and clear to auscultation bilaterally Auscultation: Negative for rales, rhonchi or wheezes Cardio regular rate, regular rhythm, S1 normal heart sound, S2 normal heart sound, no murmurs, no rub, no gallops and no clicks GI normal to inspection, nondistended, normoactive bowel sounds, soft to palpation and non-tender Extremity no clubbing, cyanosis or edema Extremity Narrative: 2+ pedal pulses Skin no rashes or lesions noted, no wounds, skin turgor normal, no jaundice, no petechiae and no mottling Neuro oriented x3, CN's II-XII intact bilaterally, moves all extremities and no focal motor deficits Coordination / Balance: [id number] test normal and [id number] test normal Speech: speech normal Psych cooperative and affect normal Medical Records Data Attestation: I reviewed the patient's medical records Lab / Micro Data Attestation: I reviewed the patient's lab results. Result Diagrams: 11/30/22 04:05 11/30/22 04:05 Labs: Laboratory Results - last 24 hr 11/29/22 13:05: WBC 8.2, RBC 4.60, Hgb 13.7, Hct 42.7, MCV 92.8, MCH 29.8, MCHC 32.1, RDW Std Deviation 42.5, RDW Coeff of Vean 12.5, Plt Count 304, MPV 10.5, Immature Gran % (Auto) 1.100 H, Neut % (Auto) 53.9, Lymph % (Auto) 31.4, [place] % (Auto) 9.0, Eos % (Auto) 4.0, Baso % (Auto) 0.6, Absolute Neuts (auto) 4.4, Absolute Lymphs (auto) 2.58, Nucleated RBC % 0 11/29/22 13:05: PT 12.9, INR 1.0, APTT 27.0 11/29/22 13:05: Sodium 137, Potassium 3.6, Chloride 105, Carbon Dioxide 27.0, Anion Gap 5, BUN 14, Creatinine 0.81, Estim Creat Clear Calc 61.34, Est GFR (MDRD) Af Amer 94, Est GFR (MDRD) Non-Af 78, BUN/Creatinine Ratio 17.3, Glucose 203 H, Calcium 9.5, Troponin I High Sens 4 11/29/22 13:17: POC Glucose 239 H 11/30/22 04:05: WBC 7.5, RBC 4.06 L, Hgb 12.3, Hct 37.6, MCV 92.6, MCH 30.3, MCHC 32.7, RDW Std Deviation 43.2, RDW Coeff of Evan 12.7, Plt Count 277, MPV 10.5, Immature Gran % (Auto) 0.500, Neut % (Auto) 54.2, Lymph % (Auto) 31.8, [place] % (Auto) 9.1, Eos % (Auto) 3.9, Baso % (Auto) 0.5, Absolute Neuts (auto) 4.1, Absolute Lymphs (auto) 2.38, Nucleated RBC % 0 11/30/22 04:05: Sodium 138, Potassium 3.7, Chloride 106, Carbon Dioxide 29.0, Anion Gap 3 L, BUN 13, Creatinine 0.70, Estim Creat Clear Calc 70.98, Est GFR (MDRD) Af Amer 111, Est GFR (MDRD) Non-Af 91, BUN/Creatinine Ratio 18.5, Glucose 131 H, Calcium 8.6, Magnesium 2.3, Total Bilirubin 0.80, AST 11 L, ALT 19, Alkaline Phosphatase 75, Total Protein 6.1 L, Albumin 3.2, Globulin 2.9, Albumin/Globulin Ratio 1.1, Triglycerides 148, Cholesterol 146, LDL Cholesterol 77, VLDL Cholesterol 30, HDL Cholesterol 39 L, TSH 0.11 L 11/30/22 04:05: Phosphorus 4.[address] 11/29/22 13:03 IMPRESSION: Normal unenhanced CT scan of the brain. N.B. : The above Results were Read Back by Lon Eric MD to Dr Betzy DO, and understanding confirmed on 11/29/2022 13:35:18 (ET). Electronically Signed: Lon Eric MD at 13:36 EDT , ADDENDUM: 11/29/22 1343 IMPRESSION: Normal unenhanced CT scan of the brain. N.B. : The above Results were Read Back by Lon Eric MD to Dr Schwiger, DO, and understanding confirmed on 11/29/2022 13:35:18 (ET). Electronically Signed: Lon Eric MD at 13:36 EDT , Head/Neck CTA 11/29/22 13:15 IMPRESSION: Normal CTA Head and neck with contrast. N.B. : The above Results were Read Back by Lon Eric MD to Brendan Bo and understanding confirmed on 11/29/2022 13:37:10 (ET). Electronically Signed: Lon Eric MD at 13:38 EDT , ADDENDUM: 11/29/22 1345 IMPRESSION: Normal CTA Head and neck with contrast. N.B. : The above Results were Read Back by Lon Eric MD to Brendan Bo and understanding confirmed on 11/29/2022 13:37:10 (ET). Electronically Signed: Lon Eric MD at 13:38 EDT , Chest X-Ray 11/29/22 15:17 IMPRESSION: The lungs are clear. No acute abnormality is present. Electronically Signed: Lon Eric MD at 15:37 EDT , Charges/Coding Visit Charges Inpatient E&M: 12469 Init Hosp L2
[2022-11-30 07:59] LABS: Hemoglobin A1c 6.3 % (3.8-5.6)
--- NOTE | 2022-11-30 08:00 | NURSING ---
patient NIH 0, however complaining of seeing black spots in left eye, worse with light.
[2022-11-30] MEDS: Escitalopram Oxalate 10 MG Tablet PO (08:55)
[2022-11-30] MEDS: Ferrous Sulfate 325 MG Tablet 650 MG PO (08:55)
[2022-11-30] MEDS: Cholecalciferol (VIT D3) 25 MCG TABLET (1,000 UNITS) 50 MCG PO (08:55)
[2022-11-30] MEDS: Metoprolol Tartrate 25 MG Tablet PO (09:29)
[2022-11-30] MEDS: Albuterol 2.5 MG/3 ML VIAL.NEB. INHALATION (09:38)
--- NOTE | 2022-11-30 13:50 | CASEMGMT ---
RN PETERSON Face to Face with patient for initial transition planning/care coordination assessment. RN CM introduced self and role at [facility]. Patient lying in bed, alert and oriented, family at bedside. Patient willing to participate in assessment and is able to answer all questions appropriately. Care providers, pharmacy, and demographics verified. Patient wishes to discharge home with Patient Link Program. Patient states she has no further needs or concerns at this time. CM to follow for discharge planning needs that may arise. PCP: Leonel Specialists: , management accountant; Ariel, clerk to justice Preferred Pharmacy: [facility] Insurance: [employer] Prescription Benefit: yes Living Will/HPOA: none LNOK: Living Arrangements: Patient lives with in a 2 story home with bed and bath on first floor, 4 steps and railing to enter the home. Patient state she is independent at home. Transportation: self, DME/HHC: Patient denies DME in the home. No previous HHC or SNF. Disposition Plan: Patient to discharge home with family support and follow-up plans in place. Lali CARRILLO, RN, CM
--- NOTE | 2022-11-30 14:30 | MRI_ITS ---
EXAM: MR HEAD WITHOUT INTRAVENOUS CONTRAST CLINICAL INDICATION: CVA -- MRI 24 hours after IV thrombolytic administration TECHNIQUE: Multiplanar and multisequence MR images of the brain were obtained without intravenous contrast. This report was created using [employer] report generation technology. COMPARISON: 11.29.22 ct FINDINGS: BRAIN AND EXTRA-AXIAL SPACES: Unremarkable. No intra- or extra-axial hemorrhage. No evidence of acute infarct. No intracranial mass or mass effect. There is preservation of the stringer/white matter interface. Posterior fossa structures are unremarkable. Ventricles are appropriate for age. No hydrocephalus. Basal cisterns are patent. SELLA: Unremarkable. Normal sella turcica, pituitary gland, infundibular stalk, optic chiasm and hypothalamus. AUDITORY SYSTEM: Unremarkable. The internal auditory canals are patent. BONES/JOINTS: Unremarkable. No discrete lytic or blastic abnormalities. SINUSES: Unremarkable as visualized. Clear. MASTOID AIR CELLS: Unremarkable as visualized. Clear. ORBITS: Unremarkable as visualized. Both globes, extraocular muscles, optic nerves and retrobulbar fat appear unremarkable. VASCULATURE: Unremarkable as visualized. Normal flow voids in the major intracranial circulation. MRI/Brain without Contrast IMPRESSION: Negative MRI brain without intravenous contrast. Electronically Signed: Javier Fu MD at 18:03 EDT ,
--- NOTE | 2022-11-30 15:31 | PN.HOSP_ITS ---
Subjective Subjective Doing well, no issues overnight. Still states that she has some vision issues in her left eye. Objective Data Objective Data Vital Signs: Vital Signs Temp Pulse Resp BP Pulse Ox O2 Del Method 98.3 F 63 14 127/75 H 93 Room Air 11/30/22 12:00 11/30/22 15:10 11/30/22 14:00 11/30/22 15:10 11/30/22 15:10 11/30/22 15:10 Oxygen Delivery Method Room Air Weight: 234 lb 2.095 oz Body Mass Index (BMI) 43.0 Intake & Output: Intake and Output for Last 24 Hours 11/29/22 11/30/22 12/01/22 03:59 03:59 03:59 Intake Total 1000 / 1000 220 / 220 Output Total 1550 / 1700 975 / 975 Balance -550 / -700 -755 / -755 Lab / Micro Data Result Diagrams: 11/30/22 04:05 11/30/22 04:05 Labs: Laboratory Results - last 24 hr 11/30/22 04:05: Hemoglobin A1c 6.3 H 11/30/22 04:05: WBC 7.5, RBC 4.06 L, Hgb 12.3, Hct 37.6, MCV 92.6, MCH 30.3, MCHC 32.7, RDW Std Deviation 43.2, RDW Coeff of Evan 12.7, Plt Count 277, MPV 10.5, Immature Gran % (Auto) 0.500, Neut % (Auto) 54.2, Lymph % (Auto) 31.8, [place] % (Auto) 9.1, Eos % (Auto) 3.9, Baso % (Auto) 0.5, Absolute Neuts (auto) 4.1, Absolute Lymphs (auto) 2.38, Nucleated RBC % 0 11/30/22 04:05: Sodium 138, Potassium 3.7, Chloride 106, Carbon Dioxide 29.0, Anion Gap 3 L, BUN 13, Creatinine 0.70, Estim Creat Clear Calc 70.98, Est GFR (MDRD) Af Amer 111, Est GFR (MDRD) Non-Af 91, BUN/Creatinine Ratio 18.5, Glucose 131 H, Calcium 8.6, Magnesium 2.3, Total Bilirubin 0.80, AST 11 L, ALT 19, Alkaline Phosphatase 75, Total Protein 6.1 L, Albumin 3.2, Globulin 2.9, Albumin/Globulin Ratio 1.1, Triglycerides 148, Cholesterol 146, LDL Cholesterol 77, VLDL Cholesterol 30, HDL Cholesterol 39 L, TSH 0.11 L 11/30/22 04:05: Phosphorus 4.4 Radiography Diagnostic Testing: Radiology Impression Chest X-Ray 11/29/22 15:17 IMPRESSION: The lungs are clear. No acute abnormality is present. Electronically Signed: Lon Eric MD at 15:37 EDT , Physical Exam Narrative General: Alert, Oriented x3, Cooperative, No apparent distress HEENT: Atraumatic, PERRLA, EOMI, Normocephalic Oral: Moist Mucosa Neck: Supple, No JVD Lungs: Clear to auscultation, Normal air movement, No rhonchi, No wheeze, No rales Cardiovascular: Regular rate, Regular Rhythm, Normal S1, Normal S2, No murmurs Abdomen: Soft, Non Tender, Non-Distended, No Hepato-splenomegaly Extremities: No edema, Capillary Refill Less than 3 Seconds Skin: No rashes, No breakdown Musculoskeletal: No Tenderness to Palpation of Joints or Extremities Neurological: Cranial nerves II-XII grossly intact, Motor Exam 5/5 strength throughout, Sensory exam intact to light touch and pain Psych/Mental Status: Normal Affect, Appropriate Assessment & Plan Assessment/Plan (1) Facial droop: (2) Vision changes: (3) Paresthesias: (4) Hyperglycemia: PLAN: Plan 1. Left-sided droop with visual changes out of her left eye and left-sided paresthesias/bitemporal hemianopsia/morbid obesity ?She did receive thrombolytics ? Continue with stroke protocol ? Echo is pending ? MRI at the 24-hour jaelyn after thrombolytics is obtained and pending read ? PT/OT ? Depending on MRI results would likely benefit from an ophthalmology evaluation as an ? BMI is 42.8, lifestyle modifications were discussed 2. CAD status post stent/HTN/HLD/history of cardiomyopathy ? Blood pressures are stable ? She is intolerant of statins ? We will hold aspirin secondary to thrombolytics 3. Hypothyroidism ? We will continue with her home Synthroid ? Her TSH is low we will obtain a T4 4. Depression ? Stable ? Continue with medications 5. Asthma ? Stable ? Continue with inhalers DVT: SCDs Charges/Coding Visit Charges Inpatient E&M: 09239 Subs Hosp L2
[2022-11-30 16:15] LABS: T4 Free Direct 1.57 ng/dL (0.76-1.46)
[2022-12-01] VITALS: BP 143/70; PULSE 62; RESP 16; TEMP 36.6; O2SAT 93
[2022-12-01 04:00] VITALS: BP 110/58; PULSE 65; RESP 18; O2SAT 95
[2022-12-01] MEDS: Levothyroxine 150 MCG Tablet PO (04:59)
[2022-12-01 05:00] VITALS: BMI 42.8
[2022-12-01] MEDS: Acetaminophen 325 MG Tablet 650 MG PO (05:01)
[2022-12-01 05:10] VITALS: BMI 42.8
[2022-12-01 08:35] VITALS: BP 132/72; PULSE 73; RESP 14; TEMP 36.8; O2SAT 96
[2022-12-01] MEDS: HYDROcodone Bitartrate/Apap 5/325 Tablet PO (08:40)
[2022-12-01 08:41] VITALS: PULSE 78
[2022-12-01] MEDS: Cholecalciferol (VIT D3) 25 MCG TABLET (1,000 UNITS) 50 MCG PO (08:41)
[2022-12-01] MEDS: Metoprolol Tartrate 25 MG Tablet PO (08:41)
[2022-12-01] MEDS: Aspirin E.C. 81 MG Tablet PO (08:41)
[2022-12-01] MEDS: Escitalopram Oxalate 10 MG Tablet PO (08:41)
--- NOTE | 2022-12-01 08:49 | DCINST_ITS ---
Discharge Instructions Diet Discharge Diet: Low fat / Low cholesterol Activity Discharge Activity: Return to Normal Activity Dressing / Incision Call your doctor if you observe: Fever of 101 or Higher, Shortness of breath, Dizziness, Fainting spells, Swelling in the ankles, Chest pain and Increased palpitations (irregular heartbeat) Follow Up Care Test Results: Test results from this visit will be discussed in further detail at your follow- up appointment, if applicable. Discharge Plan Admission Admit Date/Time: 11/29/22 14:24 Attending Provider: Odin Springer Primary Care Provider: Camilla Castaneda Consulting Providers: Krishna Hoffmann ; Khanh Allen ; Sung Lozano ; Rafy Can ; Magda Mendenhall NP ; Vee Almaraz Instructions Additional Instructions / Restrictions: Follow-up with ophthalmology tomorrow to evaluate the blurry vision changes in your left eye. MRI of your brain was negative. I decreased her Synthroid from 150 mcg to 112 mcg because her TSH was low and your free T4 was elevated. Discharge Orders/Prescriptions Prescriptions: New levothyroxine 112 mcg capsule 112 mcg PO DAILY Qty: 30 0RF Continued ferrous sulfate 325 mg (65 mg iron) tablet 650 mg PO QODAY aspirin [Adult Aspirin Regimen] 81 mg tablet,delayed release (DR/EC) 81 mg PO DAILY albuterol sulfate 90 mcg/actuation HFA aerosol inhaler 1 - 2 puff inhalation Q6H PRN (Reason: SHORTNESS OF BREATH ) escitalopram oxalate 10 mg tablet 10 mg PO Q3D metoprolol tartrate 25 mg tablet 25 mg PO DAILY Discontinued levothyroxine 150 mcg tablet 150 mcg PO DAILY Referrals / Follow Up: Camilla Castaneda MD [Primary Care Provider] - Within 1 Week Disposition Disposition (needs filled in before D/C Order can be placed): Home, Self Care
[2022-12-01 09:48] VITALS: O2SAT 97
--- NOTE | 2022-12-01 10:29 | PCM.DC.SUM ---
Providers Date of Admission: 11/29/22 Primary Care Physician: Dr. Camilla Castaneda MD Consultations 11/29/22 13:48 Consult: [employer] Machine Operator / Pulmonary Medicine Routine Consulting Provider: [facility] Reason for Consult: stroke for thrombolytic administration EMERGENT Consult: Yes Notified: Yes Date Notified: 11/29/22 Time Notified: 13:48 Method of Notification: Text Method of Consult:: In-Person Comments:: Consult may be done in ED or ICU Reason For Visit: STROKE, ELEVATED BLOOD PRESSURE Diagnosis Discharge Diagnosis (1) Facial droop: Status: Acute Code(s): R29.810 - Facial weakness (2) Vision changes: Status: Acute Code(s): H53.9 - Unspecified visual disturbance (3) Paresthesias: Status: Acute Code(s): R20.2 - Paresthesia of skin (4) Hyperglycemia: Status: Acute Code(s): R73.9 - Hyperglycemia, unspecified Medications at Discharge Home Medications ferrous sulfate 325 mg (65 mg iron) tablet 650 mg PO QODAY SUPPLEMENT 03/11/21 albuterol sulfate 90 mcg/actuation aerosol inhaler 1 - 2 puff inhalation Q6H PRN SHORTNESS OF BREATH 11/29/22 aspirin 81 mg tablet,delayed release (Adult Aspirin Regimen) 81 mg PO DAILY HEART HEALTH 11/29/22 escitalopram oxalate 10 mg tablet 10 mg PO Q3D DEPRESSION 11/29/22 metoprolol tartrate 25 mg tablet 25 mg PO DAILY BLOOD PRESSURE 11/29/22 levothyroxine 112 mcg capsule 112 mcg PO DAILY #30 caps 12/01/22 Hospital Course Operations None Procedures 2-D Echocardiogram Summary of Care Provided Minutes Spent on Discharge: 33 Hospital Course: Per HPI: MIAN WOLFE, is a 57 F who presented to the emergency department at [facility] on 11/29/2022 with the complaint of bitemporal hemianopsia that started about 45 minutes prior to presentation.? The patient states it is almost like she sees blood swirling in her visual field.? Interestingly enough, on clinical exam she has no field visual cut.? On exam she was also found to have some left upper and lower extremity sensory change and a mild left facial droop.? Patient does not have any history of visual issues or stroke/TIA.? She does have history of coronary disease, hyperlipidemia which she is intolerant of statins, and hypothyroidism.? Stroke team was called prior to arrival and she was evaluated by the stroke neurologist at [facility].? Based on the findings tenecteplase was recommended and given in the emergency department.? At the time of my evaluation her sensory issues had resolved, she still had a mild left facial droop and was still complaining of visual field issues however had a normal visual field exam. Vital signs on presentation demonstrated temperature of 97 degrees, heart rate 78, blood pressure initially was 199/106 but subsequent evaluations have been in the 140s to 160s systolic and 80s to 100 diastolic, respiratory rate of 15 and oxygen saturation of 97% on room air.? Her CBC was unremarkable.? Coags were normal.? Chemistry panel was unremarkable other than an elevated serum glucose of 203.? She does not have a history of diabetes.? Troponin was 4.? EKG shows normal sinus rhythm with normal intervals and no ST-T wave changes concerning for acute ischemia.? CT of the head was unremarkable for any acute findings.? CTA of the head neck was unremarkable. She was given tenecteplase at 2:07 and request for admission to the intensive care unit was made.? Initial NIH was 2 with one-point for sensory and one-point for left facial palsy. Hospital Course: 1. Left-sided droop with visual changes out of her left eye and left-sided paresthesias/bitemporal hemianopsia/morbid obesity ?She did receive thrombolytics ? Continue with stroke protocol ? Echo was unremarkable with an EF of 53%. She does have stage I diastolic dysfunction as well as a pulmonary artery systolic pressure of 40 mmHg ? MRI at the 24-hour jaelyn after thrombolytics was negative for stroke or head bleed. There is also no findings to explain initially her bitemporal hemianopsia followed by her left 5 vision changes ? PT/OT ? BMI is 42.8, lifestyle modifications were discussed ? I discussed with her the plan for discharge today she expressed understanding of the risk benefits going home and would like to go home today. She states that all of her symptoms have resolved other than the blurry vision in her left eye which she has an ophthalmology appointment for tomorrow. She is intolerant to statins so we will just continue with an aspirin on discharge and I recommend that she follow-up with her PCP in 3 to 5 days. 2. CAD status post stent/HTN/HLD/history of cardiomyopathy ? Blood pressures are stable ? She is intolerant of statins ? Can resume aspirin on discharge 3. Hypothyroidism ? We will continue with her home Synthroid ? Her TSH was low and her T4 was elevated so I decreased her Synthroid from 150 mcg down to 112 mcg daily, she will need to have outpatient monitoring of her TSH by her PCP. 4. Depression ? Stable ? Continue with medications 5. Asthma ? Stable ? Continue with inhalers Physical Exam Narrative General: Alert, Oriented x3, Cooperative, No apparent distress HEENT: Atraumatic, PERRLA, EOMI, Normocephalic Oral: Moist Mucosa Neck: Supple, No JVD Lungs: Clear to auscultation, Normal air movement, No rhonchi, No wheeze, No rales Cardiovascular: Regular rate, Regular Rhythm, Normal S1, Normal S2, No murmurs Abdomen: Soft, Non Tender, Non-Distended, No Hepato-splenomegaly Extremities: No edema, Capillary Refill Less than 3 Seconds Skin: No rashes, No breakdown Musculoskeletal: No Tenderness to Palpation of Joints or Extremities Neurological: Cranial nerves II-XII grossly intact, Motor Exam 5/5 strength throughout, Sensory exam intact to light touch and pain Psych/Mental Status: Normal Affect, Appropriate Weight / BMI Weight Weight: 234 lb 2.095 oz Body Mass Index (BMI) 42.8 ABG / Lab / Microbiology Data Result Diagrams: 11/30/22 04:05 11/30/22 04:05 Laboratory: Laboratory Results - last 24 hr 11/30/22 04:05: Free T4 1.57 H Radiography Diagnostic Testing: Radiology Impression Echocardiogram 11/29/22 15:00 Interpretation Summary Normal LV size. Left ventricular systolic function is normal. The estimated ejection fraction is 53 %. Bubble contrast study negative for right to left interatrial shunt. Stage 1 diastolic dysfunction. Pulmonary artery systolic pressure is 40 mmHg. Ordering Physician: Vee Almaraz Referring Physician: Camilla Castaneda Performed By: Rebekah Goode, RDCS, RVT Brain MRI 11/30/22 14:30 IMPRESSION: Negative MRI brain without intravenous contrast. Electronically Signed: Javier Fu MD at 18:03 EDT Reading Location ID and State: [facility] / [place] , Service support , D/C Instructions Discharge Diet: Low fat / Low cholesterol Call your doctor if you observe: Fever of 101 or Higher, Shortness of breath, Dizziness, Fainting spells, Swelling in the ankles, Chest pain and Increased palpitations (irregular heartbeat) Meaningful Use Info Meaningful Use Diagnoses (Choose all that apply): None applicable Discharge Plan Admission Admit Date/Time: 11/29/22 14:24 Attending Provider: Odin Springer Primary Care Provider: Camilla Castaneda Consulting Providers: Krishna Hoffmann ; Khanh Allen ; Sung Lozano ; Rafy Can ; Magda Mendenhall NP ; Vee Almaraz Instructions Additional Instructions / Restrictions: Follow-up with ophthalmology tomorrow to evaluate the blurry vision changes in your left eye. MRI of your brain was negative. I decreased her Synthroid from 150 mcg to 112 mcg because her TSH was low and your free T4 was elevated. Discharge Orders/Prescriptions Prescriptions: New levothyroxine 112 mcg capsule 112 mcg PO DAILY Qty: 30 0RF Continued ferrous sulfate 325 mg (65 mg iron) tablet 650 mg PO QODAY aspirin [Adult Aspirin Regimen] 81 mg tablet,delayed release (DR/EC) 81 mg PO DAILY albuterol sulfate 90 mcg/actuation HFA aerosol inhaler 1 - 2 puff inhalation Q6H PRN (Reason: SHORTNESS OF BREATH ) escitalopram oxalate 10 mg tablet 10 mg PO Q3D metoprolol tartrate 25 mg tablet 25 mg PO DAILY Discontinued levothyroxine 150 mcg tablet 150 mcg PO DAILY Referrals / Follow Up: Camilla Castaneda MD [Primary Care Provider] - Within 1 Week Disposition Disposition (needs filled in before D/C Order can be placed): Home, Self Care Charges/Coding Visit Charges Inpatient E&M: 76105 Disch Hosp >30min
[2022-12-01 10:40] VITALS: BP 95/58; PULSE 70; RESP 16; TEMP 36.9; O2SAT 95
--- NOTE | 2022-12-01 11:48 | CASEMGMT ---
SW went to do a PHQ 9 with patient due to patient having a Stroke. Patient was already discharged. Larisa PHAN
--- NOTE | 2022-12-01 11:48 | CASEMGMT ---
CORAL WINKLER updated by speech therapy that patient would benefit from cognitive eval with outpatient speech therapy per patient's concern. Patient had discharged from [facility] prior to being notified of outpatient speech therapy recommendations. CORAL WINKLER called patient to discuss outpatient ST setup. Abbi states that she thinks she is better and feels that she does not need outpatient ST now. CORAL WINKLER advised patient that should she have concerns to follow up with PCP for outpatient ST. Patient voiced understanding. CORAL WINKLER updated ST.
== END 2022-12-01 11:15 | disposition home or self-care (01) | DRG 45 ==
LOC: ED 14:24 → ICU 15:08
PROVIDERS: Admitting Provider Internal Medicine; Emergency Provider Emergency Medicine; PCP Internal Medicine; Visit Provider Family Medicine
DX: I63.9 Cerebral infarction, unspecified (principal); H53.47 Heteronymous bilateral field defects; Z68.41 Body mass index [BMI] 40.0-44.9, adult; E66.01 Morbid (severe) obesity due to excess calories; I25.10 Atherosclerotic heart disease of native coronary artery without angina pectoris; E78.00 Pure hypercholesterolemia, unspecified; E03.9 Hypothyroidism, unspecified; I10 Essential (primary) hypertension; J45.909 Unspecified asthma, uncomplicated; L80 Vitiligo; F32.A Depression, unspecified; R20.2 Paresthesia of skin; R29.810 Facial weakness; R29.702 NIHSS score 2; R29.700 NIHSS score 0; R73.9 Hyperglycemia, unspecified; Z95.5 Presence of coronary angioplasty implant and graft; Z79.82 Long term (current) use of aspirin; Z79.899 Other long term (current) drug therapy
CPT/HCPCS: 51702; 70450; 70496; 70498; 70551; 71045; 80048; 80053; 80061; 82962; 83036; 83735; 84100; 84439; 84443; 84484; 85025; 85610; 85730; 92610; 93005; 93306; 94640; 94668; 99252; 99285; J3101; J7030; Q9967; A4216; G0463; J2405; J3490

== ENCOUNTER → 2023-04-28 | Outpatient (CLI) | payer MEDICAID, SELFPAY ==
--- NOTE | 2023-04-30 14:56 | STRESSREP ---
Stress Test Report Date: 04/28/2023 Procedure: Exercise tolerance test/imaging study Indications: Preoperative evaluation Consent: Per the patient Procedure: The patient exercised on a Krishna protocol for 4 minutes and 5 seconds achieving a peak heart rate of 129 bpm (78% predicted maximal heart rate) with a peak blood pressure 158/88 mmHg and a peak MET capacity of 7 METs. The baseline ECG demonstrated normal sinus rhythm. The peak exercise ECG demonstrated no significant ischemic changes. EKG during recovery revealed no significant ischemic changes [There were no cardiac dysrhythmias pretest, during exercise, or recovery]. The functional capacity was considered on the lower limits of normal for age. There was [no complaint of chest discomfort during exercise or recovery]. Impression: 1. Inability to reach 85% of maximal age-predicted heart rate decreases the sensitivity of this test 2. Stress test is negative for exercise-induced EKG changes of ischemia 3. The test test is negative for exercise-induced chest pain 4. Functional capacity is on the lower limits of normal for age 5. Nuclear images pending Myocardial perfusion imaging study: Technique: The patient was injected with 15 mCi of technetium 99m Cardiolite and subsequently rest SPECT Cardiolite nuclear imaging was obtained in the horizontal long, vertical long, and short axis views. The patient exercised on a Krishna protocol. Please see above for details. The patient was injected with 45 mCi of technetium 99m Cardiolite and subsequently stress SPECT Cardiolite nuclear imaging was obtained in the horizontal long, vertical long, and short axis views. A gated Cardiolite study at peak stress was obtained. Interpretation: Rest and stress SPECT Cardiolite nuclear imaging status post realignment, normalization, and attenuation correction, demonstrates no evidence of significant ischemia or infarction. The gated Cardiolite study demonstrates no significant regional wall motion abnormalities. The reported LVEF is 70%. Impression: 1. There is no evidence of significant ischemia or infarction. 2. The gated Cardiolite study reports an LVEF of 70%. This note was generated with [employer] software. It may contain incorrect words, spelling, and punctuation that were not noted in checking the note before signing.
== END | disposition home or self-care (01) ==
PROVIDERS: PCP Nurse Practitioner Family; Referring Provider Physician Assistant Medical; Visit Provider Physician Assistant Medical
DX: Z01.810 Encounter for preprocedural cardiovascular examination (principal); I42.8 Other cardiomyopathies; I10 Essential (primary) hypertension; Z95.5 Presence of coronary angioplasty implant and graft
CPT/HCPCS: 78452; 93017; A9500; A4216

== ENCOUNTER → 2023-05-05 | Outpatient (CLI) | payer MEDICAID, SELFPAY ==
[2023-05-05 15:35] LABS: ALB/GLOB Ratio 1.3 RATIO (0.9-2.4); AST(SGOT) 18 U/L (15-37); Alanine Aminotransfer ALT/SGPT 28 U/L (13-56); Albumin, Serum 3.9 g/dL (3.2-5.0); Alkaline Phosphatase 97 U/L (45-117); Anion Gap 4 (5-15); BUN 12 mg/dL (7-18); BUN/Creat Ratio 15.4 RATIO (10-20); Calcium,Total 9.5 mg/dL (8.5-10.1); Chloride 105 mmol/L (98-107); Creatinine, Serum 0.78 mg/dL (0.55-1.02); EST Glomerular Filtration Rate 81 mL/min (>60); Est Glom Filt Rate - Afr Amer 98 mL/min (>60); Globulin 3.1 g/dL (2.2-4.2); Glucose 149 mg/dL (74-106); Potassium 5.3 mmol/L (3.5-5.1); Sodium Level 139 mmol/L (136-145)
== END | disposition home or self-care (01) ==
LOC: BIMLAB 12:11
PROVIDERS: PCP Nurse Practitioner Family; Visit Provider Nurse Practitioner Family
DX: I10 Essential (primary) hypertension (principal)
CPT/HCPCS: 36415; 80053

== ENCOUNTER 2023-06-27 15:11 | Emergency (ER) | payer MEDICAID, SELFPAY ==
[2023-06-27 15:13] VITALS: BP 121/89; PULSE 85; RESP 18; TEMP 36.4; O2SAT 96; BMI 37.6
--- NOTE | 2023-06-27 15:43 | EDS_ITS ---
HPI <KAREN Shine - Last Filed: 06/27/23 16:38> History of Present Illness Chief Complaint: Abd Pain Narrative Narrative: 57-year-old female had a gastric sleeve at [facility] on May 31. She states she had some postoperative nausea and vomiting and bleeding and was discharged 5 days later. Since then she has been slowly improving and trying to increase her water and protein intake. She is drinking about 32 ounces of water a day but over the last few days is having some headaches and decreased urine output and is concerned she is dehydrated. When she called her surgeon's office they recommend she come in for IV fluids. She denies nausea, vomiting, or abdominal pain. She is having normal formed bowel movements every couple days. PFSH <KAREN Shine - Last Filed: 06/27/23 16:38> [facility] Medical History Abnormal echocardiogram (03/23/18) Anemia Anxiety Anxiety and depression Arthritis Arthritis of left temporomandibular joint Asthma Atherosclerosis of nikolai coronary artery of nikolai heart without angina pectoris Cardiology follow-up encounter Colon cancer screening Essential hypertension H/O bronchitis History of echocardiogram History of edema History of irregular heartbeat History of steroid therapy Hyperglycemia Hypertension Hypertension Hypothyroidism Left ventricular dysfunction Migraine headache Morbid obesity Nonischemic cardiomyopathy Nonrheumatic mitral (valve) insufficiency Nonrheumatic tricuspid (valve) insufficiency Normal stress echocardiogram Obesity Otitis media Post-menopausal Preventative health care Pure hypercholesterolemia Shortness of breath Shortness of breath on exertion Sinusitis Syncope Thyroid disease Thyroid disorder Type 2 diabetes mellitus Vitiligo Wears glasses Home Medications albuterol sulfate 90 mcg/actuation aerosol inhaler 1 - 2 puff inhalation Q6H PRN SHORTNESS OF BREATH 11/29/22 [History Last Taken Unknown] aspirin 81 mg tablet,delayed release (Adult Aspirin Regimen) 81 mg PO DAILY HEART HEALTH 11/29/22 [History Last Taken 11/28/22] metoprolol tartrate 25 mg tablet 25 mg PO DAILY BLOOD PRESSURE 11/29/22 [History Last Taken 11/28/22] escitalopram oxalate 10 mg tablet 5 mg PO DAILY DEPRESSION 01/27/23 [History Last Taken Unknown] ferrous sulfate 325 mg (65 mg iron) tablet 325 mg PO DAILY SUPPLEMENT 01/27/23 [History Last Taken Unknown] levothyroxine 112 mcg tablet 112 mcg PO DAILY #30 tabs 03/17/23 [Rx Last Taken Unknown] Euflexxa 10 mg/mL (mw 2.4-3.6 million) intra-articular syringe (sodium hyaluronate (viscosup)) 10 mg intra-articular ONCE #1 mL 04/27/23 [Clinic Last Taken Unknown] liraglutide 0.6 mg/0.1 mL (18 mg/3 mL) subcutaneous pen injector (Victoza 2-Ebenezer) 1.2 mg (0.2 mL) subcut DAILY #6 mL 05/02/23 [Rx Last Taken Unknown] Allergy/AdvReac Type Severity Reaction Status Date / Time losartan Allergy Intermediate muscles Verified 06/27/23 15:13 locked up adhesive Allergy Mild Rash Verified 06/27/23 15:13 Sulfa (Sulfonamide Allergy Hives Verified 06/27/23 15:13 Antibiotics) lisinopril AdvReac Severe cough Verified 06/27/23 15:13 rosuvastatin [From Crestor] AdvReac Severe Lymphadenopathy, Verified 06/27/23 15:13 edema, hyperthyroid atorvastatin [From Lipitor] AdvReac Intermediate Muscle Verified 06/27/23 15:13 aches/myalgias Family History Father CAD (coronary artery disease) Diabetes Dementia Heart disease Mother CAD (coronary artery disease) Hypertension Thyroid disorder Heart disease Sister Diabetes Type II Thyroid disorder Colon polyps Crohn's disease Sister Diabetes Type II Thyroid disorder Surgical History History of cardiac catheterization History of cholecystectomy History of colonoscopy History of laparoscopy History of left heart catheterization Hx of laparoscopy Stented coronary artery (04/19/18) Social History Smoking Status: Never smoker alcohol intake: current alcohol intake frequency: holidays/special occasions only substance use type: does not use caffeine: Yes Type: coffee Number of servings: 2 what type of physical activity do you participate in: none seatbelt use: always do you feel safe at home: Yes additional social history: - Sonny LANDEROS <KAREN Shine - Last Filed: 06/27/23 16:38> ROS ED ROS Narrative Constitutional: Negative for fever, chills, malaise. CVS: Negative for chest pain. Respiratory: Negative for shortness of breath. GI: Negative for abdominal pain, nausea, vomiting, diarrhea, constipation, melena, hematochezia. : Negative for dysuria. EXAM <KAREN Shine - Last Filed: 06/27/23 16:38> Physical Exam Narrative Exam Narrative: CONST: Patient sitting in no acute distress. EYES: Normal inspection. NECK: Normal inspection. RESP: No respiratory distress, CTAB. CVS: Regular rate and rhythm, no murmur, no gallop. ABD: Soft and nontender, no guarding or rebound, nondistended. Laparoscopic incisions are healed without sign of infection SKIN: Color normal, no rash, warm, dry, intact. EXTREMITIES: Normal appearance, no pedal edema. NEURO: Oriented x4. PSYCH: Normal affect. Const Vital Signs: 06/27/23 15:13 Temperature 97.5 F L Temperature Source Temporal Pulse Rate 85 Respiratory Rate 18 Blood Pressure 121/89 H Blood Pressure Mean 99 Pulse Ox 96 Oxygen Delivery Method Room Air <Dr. Brendan Bo DO - Last Filed: 06/27/23 16:50> Physical Exam Const Vital Signs: 06/27/23 15:13 Temperature 97.5 F L Temperature Source Temporal Pulse Rate 85 Respiratory Rate 18 Blood Pressure 121/89 H Blood Pressure Mean 99 Pulse Ox 96 Oxygen Delivery Method Room Air MDM <KAREN Shine - Last Filed: 06/27/23 16:38> [facility] Narrative Medical decision making narrative: Patient is 3.5 weeks postop from gastric sleeve and states she is concerned she is dehydrated. She is trying to drink fluids but cannot take in enough. She has no abdominal pain. Normal bladder and bowel movements. She is awake alert with stable vital signs. She has no clinical evidence of dehydration. Cardiopulmonary exam is within normal limits. Abdomen soft, nontender, nondistended and laparoscopic incisions have fully healed. I ordered IV fluids and plan is to check her electrolytes. Differential includes mild dehydration, electrolyte abnormality, AMOR. Since she does not have abdominal pain and has no abdominal tenderness I do not think a CT scan is indicated. CBC and CMP are unremarkable. No electrolyte abnormalities. She is feeling improved after fluids and will be discharged home to follow-up with her surgeon as scheduled. Lab Data Labs: Laboratory Results - last 24 hr 06/27/23 16:02 WBC 7.8 RBC 4.29 Hgb 13.0 Hct 40.8 MCV 95.1 MCH 30.3 MCHC 31.9 L RDW Std Deviation 49.0 H RDW Coeff of Evan 14.1 Plt Count 276 MPV 11.1 Immature Gran % (Auto) 0.300 Neut % (Auto) 67.5 Lymph % (Auto) 21.8 Stearns % (Auto) 7.8 Eos % (Auto) 2.2 Baso % (Auto) 0.4 Absolute Neuts (auto) 5.3 Absolute Lymphs (auto) 1.70 Nucleated RBC % 0 Sodium 138 Potassium 3.5 Chloride 106 Carbon Dioxide 27.0 Anion Gap 5 BUN 25 H Creatinine 0.78 Estim Creat Clear Calc 63.70 Est GFR (MDRD) Af Amer 98 Est GFR (MDRD) Non-Af 81 BUN/Creatinine Ratio 32.1 H Glucose 121 H Calcium 9.4 Total Bilirubin 1.00 AST 14 L ALT 22 Alkaline Phosphatase 86 Total Protein 7.3 Albumin 3.8 Globulin 3.5 Albumin/Globulin Ratio 1.1 <Dr. Brendan Bo, DO - Last Filed: 06/27/23 16:50> [facility] Lab Data Labs: Laboratory Results - last 24 hr 06/27/23 16:02 WBC 7.8 RBC 4.29 Hgb 13.0 Hct 40.8 MCV 95.1 MCH 30.3 MCHC 31.9 L RDW Std Deviation 49.0 H RDW Coeff of Evan 14.1 Plt Count 276 MPV 11.1 Immature Gran % (Auto) 0.300 Neut % (Auto) 67.5 Lymph % (Auto) 21.8 Stearns % (Auto) 7.8 Eos % (Auto) 2.2 Baso % (Auto) 0.4 Absolute Neuts (auto) 5.3 Absolute Lymphs (auto) 1.70 Nucleated RBC % 0 Sodium 138 Potassium 3.5 Chloride 106 Carbon Dioxide 27.0 Anion Gap 5 BUN 25 H Creatinine 0.78 Estim Creat Clear Calc 63.70 Est GFR (MDRD) Af Amer 98 Est GFR (MDRD) Non-Af 81 BUN/Creatinine Ratio 32.1 H Glucose 121 H Calcium 9.4 Total Bilirubin 1.00 AST 14 L ALT 22 Alkaline Phosphatase 86 Total Protein 7.3 Albumin 3.8 Globulin 3.5 Albumin/Globulin Ratio 1.1 Treatment and Re-Evaluation :: I have personally performed a face to face assessment of the patient and have reviewed the RONNIE Note. I performed a substantive portion of the visit including all aspects of the following. My hickman findings include: History: Presents with abdominal pain that has been intermittent over the last week. Patient states it is over the epigastric and right upper quadrant area. Patient describes it as burning. Patient states it is worse after eating or drinking. Patient admits to an episode of nausea and vomiting. Patient denies any hematemesis or coffee-ground emesis. Patient denies any diarrhea, melena, or hematochezia. Patient denies any urinary symptoms. Exam: Vital signs are stable. Patient is afebrile. Patient is in no acute distress. Oral mucosa is pink and moist. Neck is supple. Trachea is midline. There is no JVD. Heart was regular rate and rhythm. Lungs are clear and equal bilaterally. Abdomen is soft. Bowel sounds are normal. There is no tenderness. There is no guarding noted. There is no rebound noted. Cranial nerves II through XII are intact. There are no focal motor or sensory deficits noted. Medical Decision Making: Differential diagnosis includes dehydration, gastritis, gastric ulcer, GERD, and electrolyte abnormality. CBC will be obtained to assess for leukocytosis and anemia. Comprehensive metabolic profile will be obtained to assess for hepatic function, renal function, and electrolyte abnormality. Patient was given IV fluids and Zofran. Patient is feeling better on reevaluation. Patient was advised of her findings. Patient was instructed to start with small amounts of liquids more frequently. Patient was instructed to advance her diet as tolerated. Patient was instructed to follow-up with her primary care physician and bariatric surgeon in 5 to 7 days. Patient was instructed return if worse in any way. Patient understood and was agreeable with the plan. All questions were answered. Discharge Plan Triage Chief Complaint: Abd Pain ED Midlevel Provider: Aixa Knox ED Provider: Brendan Bo Dx/Rx/DC Orders Clinical Impression: Mild dehydration, History of bariatric surgery Instructions: Dehydration Prescriptions: No Action Euflexxa 10 mg/mL(mw 2.4 -3.6 million) syringe 10 mg intra-articular ONCE Qty: 1 0RF ferrous sulfate 325 mg (65 mg iron) tablet 325 mg PO DAILY aspirin [Adult Aspirin Regimen] 81 mg tablet,delayed release (DR/EC) 81 mg PO DAILY albuterol sulfate 90 mcg/actuation HFA aerosol inhaler 1 - 2 puff inhalation Q6H PRN (Reason: SHORTNESS OF BREATH ) metoprolol tartrate 25 mg tablet 25 mg PO DAILY escitalopram oxalate 10 mg tablet 5 mg PO DAILY levothyroxine 112 mcg tablet 112 mcg PO DAILY Qty: 30 6RF Victoza 2-Ebenezer 0.6 mg/0.1 mL (18 mg/3 mL) pen injector 1.2 mg subcut DAILY Qty: 6 0RF Primary Care Provider: Angus Schulz EGG PASTEURIZER Referrals: Angus Schulz C, EGG PASTEURIZER-C [[facility]] - Activity Restrictions/Additional Instructions: Please continue to drink fluids at home and follow-up with your surgeon as scheduled Disposition Disposition: Home, Self Care
[2023-06-27] MEDS: 0.9% Normal Saline (1000mL) 1,000 ML 999 ML IV (16:00)
[2023-06-27] MEDS: Ondansetron 4 MG/2 ML Vial IV (16:00)
[2023-06-27 16:15] LABS: Absolute Neutrophil Count 5.3 X10^3/uL (2.0-7.7); Basophil# 0.03 X10^3/uL; Basophil% 0.4 % (0-1); Eosinophil# 0.17 X10^3/uL; Eosinophils% 2.2 % (0-5); Hematocrit 40.8 % (37-47); Lymphocyte % 21.8 % (19-41); Mean Corp Hgb Conc 31.9 g/dL (32-36); Mean Corpuscular Hgb 30.3 pg (27.0-32.0); Mean Corpuscular Volume 95.1 fL (81-99); Mean Platelet Vol. 11.1 fl (6.2-12.0); Monocyte# 0.61 X10^3/uL; Monocyte% 7.8 % (0-10); NRBC Flagged by Analyzer 0 % (0-5); Neutrophil # 5.26 X10^3/uL (2.7-7.7); Neutrophil % 67.5 % (47-70); Platelet Count 276 K/mm3 (150-450); RBC Distribution Width CV 14.1 % (11.6-14.6); Red Blood Count 4.29 M/mm3 (4.2-5.4); White Blood Count 7.8 K/mm3 (4.4-11.0)
[2023-06-27 16:33] LABS: ALB/GLOB Ratio 1.1 RATIO (0.9-2.4); AST(SGOT) 14 U/L (15-37); Alanine Aminotransfer ALT/SGPT 22 U/L (13-56); Albumin, Serum 3.8 g/dL (3.2-5.0); Alkaline Phosphatase 86 U/L (45-117); Anion Gap 5 (5-15); BUN 25 mg/dL (7-18); BUN/Creat Ratio 32.1 RATIO (10-20); Calcium,Total 9.4 mg/dL (8.5-10.1); Chloride 106 mmol/L (98-107); Creatinine, Serum 0.78 mg/dL (0.55-1.02); EST Glomerular Filtration Rate 81 mL/min (>60); Est Glom Filt Rate - Afr Amer 98 mL/min (>60); Globulin 3.5 g/dL (2.2-4.2); Glucose 121 mg/dL (74-106); Potassium 3.5 mmol/L (3.5-5.1); Protein, Total 7.3 g/dL (6.4-8.2); Sodium Level 138 mmol/L (136-145)
[2023-06-27 17:12] VITALS: BP 141/85; PULSE 89; RESP 16; O2SAT 96
== END 2023-06-27 17:41 | disposition home or self-care (01) ==
PROVIDERS: Emergency Provider Emergency Medicine; PCP Nurse Practitioner Family; Visit Provider Emergency Medicine
DX: E86.0 Dehydration (principal); I42.8 Other cardiomyopathies; E11.9 Type 2 diabetes mellitus without complications; I25.10 Atherosclerotic heart disease of native coronary artery without angina pectoris; Z95.5 Presence of coronary angioplasty implant and graft
CPT/HCPCS: 80053; 85025; 96361; 96374; 99283; J2405

== ENCOUNTER → 2023-10-20 | Outpatient (CLI) | payer MEDICAID, SELFPAY ==
--- NOTE | 2023-10-20 08:59 | RAD_ITS ---
EXAMINATION: UPPER GI SERIES INDICATION: Female, 58 years status post gastric sleeve surgery. Burning sensation. Heartburn. FLUOROSCOPY TIME (if supplied): (0:48) minutes/seconds. 20.98 mGy. 20 fluoroscopic images were obtained. TECHNIQUE: Radiographic and fluoroscopic images of the distal esophagus, stomach, and proximal small intestine were obtained following the oral ingestion of barium. COMPARISON: None. FINDINGS: There is no evidence for organomegaly, abnormal calcifications, or abnormal bowel gas pattern. The psoas margins and flank stripes are normal. The visualized osseous structures are normal. The mucosa of the esophagus, stomach and duodenum is normal in appearance without evidence for stricture, ulceration, mass or diverticulum. There is evidence of gastroesophageal reflux. The patient is status post gastric sleeve surgery with narrowing of the body and fundal portion of the stomach. RAD/Upper GI Single Contrast IMPRESSION: 1. Evidence of the gastroesophageal reflux. 2. Status post gastric sleeve surgery. Electronically Signed: Lon Eric MD at 14:18 EDT ,
== END | disposition home or self-care (01) ==
PROVIDERS: PCP Family Medicine
DX: Z98.84 Bariatric surgery status (principal)
CPT/HCPCS: 74240

== ENCOUNTER → 2023-12-14 | Outpatient (CLI) | payer MEDICAID, SELFPAY ==
[2023-12-14 16:38] LABS: T4 Free Direct 1.18 ng/dL (0.76-1.46); Thyroid Stim Hormone (TSH) 6.48 uIU/mL (0.358-3.74)
== END | disposition home or self-care (01) ==
LOC: BIMLAB 11:57
PROVIDERS: PCP Family Medicine; Referring Provider Nurse Practitioner Family; Visit Provider Nurse Practitioner Family
DX: E03.8 Other specified hypothyroidism (principal); E06.3 Autoimmune thyroiditis
CPT/HCPCS: 36415; 84439; 84443

== ENCOUNTER → 2024-02-21 | Outpatient (CLI) | payer MEDICAID, SELFPAY ==
[2024-02-21 17:21] LABS: T4 Free Direct 0.92 ng/dL (0.76-1.46)
== END | disposition home or self-care (01) ==
LOC: LAB 16:09
PROVIDERS: PCP Family Medicine; Referring Provider Internal Medicine Endocrinology, Diabetes & Metabolism; Visit Provider Internal Medicine Endocrinology, Diabetes & Metabolism
DX: E03.9 Hypothyroidism, unspecified (principal); E11.9 Type 2 diabetes mellitus without complications
CPT/HCPCS: 36415; 84439; 84443

== ENCOUNTER → 2024-03-28 | Outpatient (CLI) | payer MEDICAID, SELFPAY ==
[2024-03-28 12:53] LABS: Absolute Lymphocyte Count 2.75 X10^3/uL (0.83-4.51); Absolute Neutrophil Count 3.9 X10^3/uL (2.0-7.7); Basophil# 0.06 X10^3/uL; Basophil% 0.8 % (0-1); Eosinophil# 0.31 X10^3/uL; Hematocrit 40.5 % (37-47); Hemoglobin 12.9 g/dL (12.0-15.0); Lymphocyte # 2.75 X10^3/ul (0.83-4.51); Lymphocyte % 35.7 % (19-41); Mean Corp Hgb Conc 31.9 g/dL (32-36); Mean Corpuscular Hgb 29.9 pg (27.0-32.0); Mean Corpuscular Volume 93.8 fL (81-99); Mean Platelet Vol. 10.7 fl (6.2-12.0); Monocyte# 0.65 X10^3/uL; Monocyte% 8.4 % (0-10); NRBC Flagged by Analyzer 0 % (0-5); Neutrophil # 3.91 X10^3/uL (2.7-7.7); Neutrophil % 50.8 % (47-70); Platelet Count 273 K/mm3 (150-450); RBC Distribution Width CV 13.7 % (11.6-14.6); RBC Distribution Width SD 47.1 fl (35.1-43.9); Red Blood Count 4.32 M/mm3 (4.2-5.4); White Blood Count 7.7 K/mm3 (4.4-11.0)
[2024-03-28 13:13] LABS: ALB/GLOB Ratio 0.9 RATIO (0.9-2.4); AST(SGOT) 16 U/L (15-37); Alanine Aminotransfer ALT/SGPT 18 U/L (13-56); Albumin, Serum 3.6 g/dL (3.2-5.0); Alkaline Phosphatase 86 U/L (45-117); Anion Gap 5 (5-15); BUN 16 mg/dL (7-18); BUN/Creat Ratio 20.9 RATIO (10-20); Calcium,Total 9.4 mg/dL (8.5-10.1); Chloride 103 mmol/L (98-107); Cholesterol 215 mg/dL (200); Creatinine, Serum 0.76 mg/dL (0.55-1.02); EST Glomerular Filtration Rate 83 mL/min (>60); Est Glom Filt Rate - Afr Amer 100 mL/min (>60); Globulin 3.8 g/dL (2.2-4.2); Glucose 96 mg/dL (74-106); High Density Lipoprotein 57 mg/dL; Potassium 4.1 mmol/L (3.5-5.1); Protein, Total 7.4 g/dL (6.4-8.2); Sodium Level 138 mmol/L (136-145); Triglycerides 165 mg/dL; Very Low Density Lipoprotein 33 mg/dL (5-40)
[2024-03-28 13:14] LABS: T4 Free Direct 1.21 ng/dL (0.76-1.46)
== END | disposition home or self-care (01) ==
LOC: VSLAB 08:59
PROVIDERS: Internal Medicine Endocrinology, Diabetes & Metabolism; PCP Nurse Practitioner Family; Visit Provider Nurse Practitioner Family
DX: I10 Essential (primary) hypertension (principal)
CPT/HCPCS: 36415; 80053; 80061; 84439; 84443; 85025

== ENCOUNTER → 2024-10-02 | Outpatient (CLI) | payer MEDICAID, SELFPAY ==
[2024-10-02 17:39] LABS: Absolute Lymphocyte Count 1.92 X10^3/uL (0.83-4.51); Absolute Neutrophil Count 3.8 X10^3/uL (2.0-7.7); Basophil# 0.04 X10^3/uL; Basophil% 0.6 % (0-1); Eosinophil# 0.22 X10^3/uL; Eosinophils% 3.3 % (0-5); Hematocrit 40.5 % (37-47); Hemoglobin 12.8 g/dL (12.0-15.0); Lymphocyte # 1.92 X10^3/ul (0.83-4.51); Lymphocyte % 29.2 % (19-41); Mean Corp Hgb Conc 31.6 g/dL (32-36); Mean Corpuscular Hgb 29.7 pg (27.0-32.0); Monocyte# 0.56 X10^3/uL; Monocyte% 8.5 % (0-10); NRBC Flagged by Analyzer 0 % (0-5); Neutrophil # 3.81 X10^3/uL (2.7-7.7); Neutrophil % 58.1 % (47-70); Platelet Count 282 K/mm3 (150-450); RBC Distribution Width CV 13.4 % (11.6-14.6); RBC Distribution Width SD 46.7 fl (35.1-43.9); Red Blood Count 4.31 M/mm3 (4.2-5.4); White Blood Count 6.6 K/mm3 (4.4-11.0)
[2024-10-02 17:44] LABS: ALB/GLOB Ratio 1.7 RATIO (0.9-2.4); AST(SGOT) 21 U/L (<=31); Alanine Aminotransfer ALT/SGPT 9 U/L (<=34); Albumin, Serum 4.5 g/dL (3.5-5.0); Alkaline Phosphatase 88 U/L (35-104); Anion Gap 12 (5-15); BUN 19 mg/dL (4-19); BUN/Creat Ratio 30.2 RATIO (10-20); Calcium 9.5 mg/dL (7.6-11.0); Carbon Dioxide 24.7 mmol/L (22.0-29.0); Chloride 102 mmol/L (96-108); Cholesterol 194 mg/dL (<=200); Creatinine, Serum 0.6 mg/dL (0.6-1.0); EST Glomerular Filtration Rate 103 (>60); Globulin 2.6 g/dL (2.2-4.2); Glucose 90 mg/dL (70-99); High Density Lipoprotein 50 mg/dL; Low Density Lipoprotein Calc. 111 mg/dL; Potassium 4.1 mmol/L (3.3-5.1); Protein, Total 7.1 g/dL (5.9-8.4); Rheumatoid Factor < 10.0 IU/mL (<15); Sodium Level 139 mmol/L (133-145); Thyroid Stim Hormone (TSH) 0.498 uIU/mL (0.300-4.200); Total Bilirubin 1.26 mg/dL (0.00-1.30); Triglycerides 167 mg/dL; Very Low Density Lipoprotein 33 mg/dL (5-40); cholesterol:hdl ratio screen 3.89
[2024-10-02 17:58] LABS: Erythrocyte Sedimentation Rate 17 mm/hr (0-30)
[2024-10-04 14:08] LABS: CCP IgG Antibodies 4 units (0-19)
[2024-10-04 15:08] LABS: ANTINUCLEAR ANTIBODIES DIRECT Negative (Negative)
== END | disposition home or self-care (01) ==
LOC: VSLAB 14:12
PROVIDERS: PCP Nurse Practitioner Family; Visit Provider Nurse Practitioner Family
DX: M25.50 Pain in unspecified joint (principal); I10 Essential (primary) hypertension
CPT/HCPCS: 36415; 80053; 80061; 84443; 85025; 85652; 86038; 86140; 86200; 86431

== ENCOUNTER 2025-01-15 01:01 | Emergency (ER) | payer MEDICAID, SELFPAY ==
[2025-01-15 01:03] VITALS: BP 166/85; PULSE 63; RESP 18; TEMP 36.8; O2SAT 98; BMI 38.2
--- NOTE | 2025-01-15 01:31 | RAD_ITS ---
PROCEDURE: LUMBAR SPINE 2 OR 3 VIEWS 01/15/2025 REASON FOR EXAM: BACK PAIN TECHNIQUE: 2 view(s) of the lumbar spine COMPARISON: None. FINDINGS: Mild degenerative dextroscoliosis apex at L3. Grade 1 anterolisthesis of L4 on L5 measuring 2.3 mm. There are diffuse spondylotic changes. Findings are demonstrated to by diffuse disc space narrowing, osteophyte formation and degenerative endplate sclerosis. There is diffuse facet joint arthropathy with secondary bilateral neural foramina narrowing. No fracture or dislocation is seen. No aggressive lytic or blastic bony lesion is noted. RAD/Lumbar Spine 2 or 3 Views IMPRESSION: Spondylosis. Reading Location: [facility]
--- NOTE | 2025-01-15 01:31 | EDS_ITS ---
HPI History of Present Illness Chief Complaint: Lower Extremity Injury Informant: patient Narrative Narrative: 59-year-old female presenting to the emergency room with low back and left hip pain. Patient states about 4 months ago she fell off the ladder landed on her left hip. She had pain in her back and thought maybe she broke her tailbone but she never got checked out. Yesterday she assisted in unloading a truck but did not recall lifting anything significantly heavy but did do a lot of bending over. When she woke this morning she had pain in the low back and a burning sensation in the lateral left thigh. She states that she had a blood clot behind her left eye several years ago and wonders if she has a blood clot in her leg. She notes it is very painful to try to move her leg and back. She denies any symptoms below the knee. No bowel or bladder dysfunction. No rashes. No fevers. No history of IVD malignancy. [facility] Medical History Irregular heart rhythm Type 2 diabetes mellitus Wears glasses Post-menopausal Anxiety History of steroid therapy Thyroid disease Anemia Migraine headache Syncope Shortness of breath on exertion History of edema History of echocardiogram Normal stress echocardiogram Hypertension Cardiology follow-up encounter History of irregular heartbeat Colon cancer screening Preventative health care Essential hypertension Sinusitis Arthritis of left temporomandibular joint Anxiety and depression Otitis media Obesity Hyperglycemia Morbid obesity Hypertension Arthritis Thyroid disorder H/O bronchitis Asthma Pure hypercholesterolemia Atherosclerosis of [place] coronary artery of [place] heart without angina pectoris Shortness of breath Abnormal echocardiogram (03/23/18) Nonrheumatic mitral (valve) insufficiency Nonrheumatic tricuspid (valve) insufficiency Nonischemic cardiomyopathy Left ventricular dysfunction Vitiligo Hypothyroidism Home Medications ?Medication ?Instructions ?Recorded ?Last Taken ?Type albuterol sulfate 90 mcg/actuation 1 - 2 puff inhalati on Q6H PRN 11/29/22 Unknown History aerosol inhaler SHORTNESS OF BREATH aspirin 81 mg tablet,delayed 81 mg PO DAILY HEART HEAL TH 11/29/22 11/28/22 History release (Adult Aspirin Regimen) ferrous sulfate 325 mg (65 mg 325 mg PO DAILY SUPPLEME NT 01/27/23 Unknown History iron) tablet Euflexxa 10 mg/mL (mw 2.4-3.6 10 mg intra-articular ON CE #1 mL 04/27/23 Unknown Clinic million) intra-articular syringe (sodium hyaluronate (viscosup)) calcium 600 mg-D3 800 unit-mag11 1 tab PO TID 12/15/23 Unknown History 50 [id number] tablet (Caltrate 600-D Plus Minerals) multivitamin with iron 1 tab PO DAILY 12/15/23 Unkn own History metoprolol tartrate 25 mg tablet 25 mg PO DAILY BLOOD PRESSURE #90 08/08/24 Unknown Rx tabs duloxetine 20 mg capsule,delayed 20 mg PO QDAY 5 Unknown History release pantoprazole 40 mg tablet,delayed 40 mg PO BID 5 Unknown History release levothyroxine 125 mcg tablet 125 mcg PO DAILY #90 tabs 12/19/24 Unknown Rx cyclobenzaprine 10 mg tablet 10 mg PO TID PRN Muscle S pasm #15 01/15/25 Unknown Rx TABLETS ketorolac 10 mg tablet 10 mg PO Q8H PRN pain #15 ta bs 01/15/25 Unknown Rx oxycodone-acetaminophen 5 mg-325 1 tab PO Q6H PRN pain 3 days #12 01/15/25 Unknown Rx mg tablet (Percocet) tabs Allergy/AdvReac Type Severity Reaction Status Date / Time losartan Allergy Intermediate muscles Verified 01/15/25 01:02 locked up adhesive Allergy Mild Rash Verified 01/15/25 01:02 Sulfa (Sulfonamide Allergy Hives Verified 01/15/25 01:02 Antibiotics) lisinopril AdvReac Severe cough Verified 01/15/25 01:02 rosuvastatin (From Crestor) AdvReac Severe Lymphadenopathy, Verified 01/15/25 01:02 edema, hyperthyroid atorvastatin (From Lipitor) AdvReac Intermediate Muscle Verified 01/15/25 01:02 aches/myalgias Family History Father CAD (coronary artery disease) Diabetes Dementia Heart disease Mother CAD (coronary artery disease) Hypertension Thyroid disorder Heart disease Sister Diabetes Type II Thyroid disorder Colon polyps Crohn's disease Sister Diabetes Type II Thyroid disorder Surgical History H/O gastric sleeve History of cardiac catheterization Hx of laparoscopy History of colonoscopy History of laparoscopy History of left heart catheterization Stented coronary artery (04/19/18) History of cholecystectomy Social History Smoking Status: Never smoker alcohol intake: current alcohol intake frequency: holidays/special occasions only substance use type: does not use caffeine: Yes Type: coffee Number of servings: 2 what type of physical activity do you participate in: none seatbelt use: always do you feel safe at home: Yes additional social history: - Sonny LANDEROS LETI ED Constitutional Constitutional ED: Denies chills, fever(s) or weight loss Eyes Eyes: Denies change in vision or diplopia ENT ENT ED: Denies ear pain, rhinorrhea or sore throat Cardiovascular Cardiovascular: Denies chest pain, orthopnea, palpitations or racing heartbeat Respiratory/Chest Respiratory/Chest: Denies cough, dyspnea or orthopnea Gastrointestinal Gastrointestinal: Denies abdominal pain, diarrhea, nausea or vomiting Genitourinary Genitourinary ED: Denies dysuria, hematuria or urinary frequency Musculoskeletal Musculoskeletal: Reports back pain and other Details: See history of present illness ; Denies arthralgias or myalgias Integumentary Denies abscess or rash Neurologic Neurologic: Denies headache(s), paresthesias or weakness Psychiatric Psychiatric: Denies anxiety, depression, suicidal ideation or suicidal thoughts Endocrine Endocrinology: Denies polydipsia, polyphagia or polyuria Allergic/Immunologic Allergic/Immunologic ED: Denies mouth swelling, tongue swelling or urticaria EXAM Physical Exam Const Vital Signs: 01/15/25 01:03 01/15/25 03:00 01/15/25 03:20 Temperature 98.2 F 98.6 F Temperature Source Oral Pulse Rate 63 80 80 Respiratory Rate 18 20 H Blood Pressure 166/85 H 128/70 H 109/89 H Blood Pressure Mean 112 89 95 Pulse Ox 98 96 96 Positive well nourished and well developed General Appearance ED: well developed and NAD HEENT Reports normocephalic, head/scalp atraumatic and moist mucous membranes Eyes PERRL and EOMs intact bilaterally Neck no lymphadenopathy, supple and no JVD Resp normal respiratory effort and clear to auscultation bilaterally Cardio regular rate, regular rhythm and no murmurs GI normal to inspection, nondistended, normoactive bowel sounds and non-tender Palpation: soft Back/Spine no CVA tenderness Back/Spine Narrative: Tender to palpation in the left lower lumbar paraspinal region. Slow painful range of motion particularly with flexion at the hip joint. Lumbar Spine / Lower Back: Negative for lumbar spinal tenderness Extremity normal to inspection General Extremety ED: Negative for edema General Extremity: Negative for edema Neuro oriented x3, CN's II-XII intact bilaterally, moves all extremities and no sensory deficits noted Neuro Narrative: No appreciable foot drop. +2 dorsalis pedis pulses bilaterally Sensorium / Orientation: alert Motor Exam: strength 5/5 throughout Deep Tendon Reflexes: Rt Patellar (L4): 2+, Lt Patellar (L4): 2+, Rt Ankle (S1): 2+ and Lt Ankle (S1): 2+ Deep Tendon Reflexes Back: Rt Patellar (L4): 2+, Lt Patellar (L4): 2+, Rt Ankle (S1): 2+ and Lt Ankle (S1): 2+ Psych mental status grossly normal Mood & Affect: Negative for depressed or tearful Skin no rashes or lesions noted and no wounds MDM MDM MDM Narrative Medical decision making narrative: Differential diagnosis includes but not limited to lumbar radiculopathy disc herniation back fracture muscle spasm hip flexor spasm psoas muscle hematoma discitis epidural abscess lumbar myofascial strain shingles cauda equina My independent interpretation of the plain films of the lumbar spine is no acute fracture or obvious old fracture. Clinically her pain is lateral over the thigh with pain in the low back after increase in flexion extension at work. Symptoms have been progressive throughout the day after waking. Think is most likely musculoskeletal in nature. I gave the patient pain medication. I will write for her to have pain medication and muscle relaxants at home. Would recommend PCP follow-up in a week. We talked about the potential need for physical therapy and stretching and home exercises. Patient has no symptoms of cauda equina at this time. History & Record Review Discussion w/independent historian: Patient Radiography Diagnostic Testing: Clinical Impression(s) from Imaging Studies Lumbar Spine X-Ray 01/15/25 01:31 IMPRESSION: Spondylosis. Reading Location: [place] [address] Discharge Plan Triage Chief Complaint: Lower Extremity Injury ED Provider: Shaji Poe Dx/Rx/DC Orders Clinical Impression: Low back pain, Acute lumbar radiculopathy Instructions: Understanding Lumbar Radiculopathy, Sciatica Exercise Prescriptions: New cyclobenzaprine 10 mg tablet 10 mg PO TID PRN (Reason: Muscle Spasm) Qty: 15 0RF oxycodone-acetaminophen [Percocet] 5-325 mg tablet 1 tab PO Q6H PRN (Reason: pain) 3 Days Qty: 12 0RF ketorolac 10 mg tablet 10 mg PO Q8H PRN (Reason: pain) Qty: 15 0RF Rx Instructions: maximum total duration of 5 days from all oral, intranasal, or parenteral formulations No Action Euflexxa 10 mg/mL(mw 2.4 -3.6 million) syringe 10 mg intra-articular ONCE Qty: 1 0RF multivitamin with iron Tablet 1 tab PO DAILY Caltrate 600-D Plus Minerals 600 mg calcium- 800 unit-50 mg tablet 1 tab PO TID levothyroxine 125 mcg tablet 125 mcg PO DAILY Qty: 90 3RF pantoprazole 40 mg tablet,delayed release (DR/EC) 40 mg PO BID duloxetine 20 mg capsule,delayed release(DR/EC) 20 mg PO QDAY ferrous sulfate 325 mg (65 mg iron) tablet 325 mg PO DAILY aspirin [Adult Aspirin Regimen] 81 mg tablet,delayed release (DR/EC) 81 mg PO DAILY albuterol sulfate 90 mcg/actuation HFA aerosol inhaler 1 - 2 puff inhalation Q6H PRN (Reason: SHORTNESS OF BREATH ) metoprolol tartrate 25 mg tablet 25 mg PO DAILY Qty: 90 3RF Primary Care Provider: Angus Schulz Referrals: Angus Schulz, [employer] [Primary Care Provider] - 1 Week Print Language: Frisian Disposition Disposition: Home, Self Care Discharge Date/Time: 01/15/25 03:21
--- OUTSIDE RECORDS SUMMARY | 2025-01-15 01:38 | XMS RPT_ITS | CCD ---
Author Organization [facility] Care Team Providers Care Investment Accountant Name Role Phone WAYT, MARGARITA Unavailable Unavailable WAYT, MARGARITA Unavailable Unavailable Wayt, Harshil P Unavailable Stephenie Chaudhary Primary Care Provider WayHarshil sal P Unavailable Stephenie Chaudhary Primary Care Provider WayHarshil sal P Unavailable Stephenie Chaudhary Primary Care Provider [facility] Shruthi Referring Provid er Dr. Joselo Chino Attending Provider Dr. Camilla Castaneda Primary Care Provider Dr. Camilla Castaneda Attending Provider [phone] Dr. Camilla Castaneda Referring Provider [phone] Dr. Camilla Castaneda Primary Care Provider Bridgett Tierney Attending Provider Unavailable Dr. Camilla Castaneda Referring Provider [phone] Jazz H[employer] PRESS OPERATOR, H[employer] PRESS OPERATOR-C Susanna Attending Provider KAREN Frost Attending Provider Unavailab Dr. Richard Reno Attending Provider Dr. Favian Zee Attending Provider Dr. Favian Zee Other Provider Dr. Camilla Castaneda Primary Care Provider Dr. Camilla Castaneda Referring Provider Jazz HOT PLATE [employer] PRESS OPERATOR, HOT [employer]ATE [employer] PRESS OPERATOR-C Susanna Attending Provider KAREN Frost Attending Provider Unavailab Dr. Richard Reno Attending Provider Dr. Favian Zee Attending Provider Dr. Favian Zee Other Provider Aquilino HOT PLATE [employer] PRESS OPERATOR, HOT PLATE [employer] PRESS OPERATOR-C Joya Attending Provider Dr. Brendan Bo Emergency Provider Dr. Vee Almaraz Admit Provider Dr. Vee Almaraz Attending Provider Dr. Vee Almaraz Other Provider Dr. Krishna Hoffmann Attending Provider Dr. Krishna Hoffmann Other Provider Dr. Khanh Allen Other Provider Dr. Sung Lozano Other Provider [phone] Rafy Can Other Provider Unavailab rell Mendenhall HOT PLATE [employer] PRESS OPERATOR, HOT PLATE [employer] PRESS OPERATOR-C Magda Other Provider Dr. Odin Springer Other Provider Dr. Janusz George Attending Provider Dr. Odin Springer Attending Provider Harshil Tyson Unavailable Stephenie Chaudhary Primary Care Provider Dr. Camilla Castaneda Primary Care Provider Dr. Camilla Castaneda Referring Provider Jazz HOT [employer]ATE [employer] PRESS OPERATOR, HOT [employer]ATE [employer] PRESS OPERATOR-C Susanna Attending Provider KAREN Sanchez Attending Provider KAREN Harris Attending Provider KAREN Sanchez Referring Provider KAREN Sanchez Other Provider Jazz H[employer]ATE [employer] PRESS OPERATOR, HOT PLATE [employer] PRESS OPERATOR-C Susanna Primary Care Provider Dr. Dorita Carey Attending Provider [phone] De HEALTH MANAGEMENT CONSULTANT, Susanna Primary Care Provider Stephenie Chaudhary Primary Care Provider Dr. Camilla Castaneda Referring Provider [phone] KAREN Harris Attending Provider [phone] De H[employer]ATE [employer] PRESS OPERATOR, HOT [employer]ATE [employer] PRESS OPERATOR-C Susanna Primary Care Provider Dr. Dorita Carey Attending Provider [phone] KAREN Sanchez Referring Provider KAREN Sanchez Other Provider [phone] De HOT PLATE [employer] PRESS OPERATOR, HOT PLATE [employer] PRESS OPERATOR-C Susanna Referring Provider [phone] De HEALTH MANAGEMENT CONSULTANT, Susanna Primary Care Provider DE, SUSANNA Primary Care Unavailable BULOW, MICKI Attending Unavailable TREE LYNCH Referring Unavailable GIOVANA DENG Attending Unavailable TREE LYNCH Referring Unavailable DE, SUSANNA Primary Care Unavailable MAISHA LENNON Attending Unavailable TREE LYNCH Referring Unavailable DE, SUSANNA Primary Care Unavailable DE, SUSANNA Primary Care Unavailable LISSETTE VUONG Attending Unavailable DE, SUSANNA Primary Care Unavailable LISSETTE VUONG Attending Unavailable DE, SUSANNA Primary Care Unavailable BULOW, MICKI Referring Unavailable De HOT PLATE [employer]OD PRESS OPERATOR-C, Susanna Primary Care Provider De HOT PLATE [employer] PRESS OPERATOR-C, Susanna Attending Provider De HOT PLATE [employer] PRESS OPERATOR-C, Susanna Referring Provider Dru Gimenez Attending Provider Dr. Susanna Valente DO Referring Provider Dr. Richard Tierney MD Attending Provider De, Susanna Attending Unavailable De, Susanna Primary Care Unavailable De, Susanna Attending Unavailable De, Susanna Referring Unavailable De, Susanna Primary Care Unavailable Nancy Pastrana Attending Unavailable De, Susanna Primary Care Unavailable Nancy Pastrana Attending Unavailable De, Susanna Primary Care Unavailable De, Susanna Referring Unavailable De, Susanna Primary Care Unavailable Dru Muñiz Attending Unavailable Richard Tierney Attending Unavailable De, Susanna Primary Care Unavailable SidraSusanna pompa Referring Unavailable Sidra Susanna Referring Unavailable Nikhil Goode NP Attending Unavailable De, Susanna Primary Care Unavailable Richard Tierney Attending Unavailable Richard Tierney Referring Unavailable Sidra, Susanna Primary Care Unavailable Jazz Susanna Attending Unavailable De, Susanna Primary Care Unavailable Allergies Allergy Classification Reported Allergen(s) Allergy Type Date of Onset Reaction(s) Facility HMG-CoA Reductase Inhibitors (statins) (1 source) Hmg-Coa Reductase Inhibitors (Statins) Drug Allergy 06-11-20 19 Swelling [facility] Sulfonamides (antibiotic) (1 source) Sulfonamides (Antibiotic) Drug Allergy 02-17-20 16 Rash, Itching [facility] Work Phone: (20 sources) Hmg-Coa Reductase Inhibitors (Statins); Translations: [[id number] REDUCTASE INHIBITORS] Drug Intolerance 06-11-20 19 Swelling [facility] (20 sources) Sulfonamides (Antibiotic); Translations: [SULFA (SULFONAMIDE ANTIBIOTICS)] Drug Allergy 02-17-20 16 Rash, Itching [facility] (12 sources) atorvastatin Drug Allergy 02-10-20 22 Muscle aches/myalgias [facility] (12 sources) Losartan Drug Allergy 02-10-20 22 muscles locked up [facility] (12 sources) rosuvastatin Drug Allergy 02-10-20 22 Lymphadenopathy , edema, hyperthyroid [facility] (20 sources) Lisinopril; Translations: [LISINOPRIL] Drug Allergy 01-18-20 23 Cough [facility] Work Phone: (18 sources) Adhesive Tape-Silicones; Translations: [ADHESIVE TAPE-SILICONES] Drug Allergy 02-25-20 23 Rash [facility] (7 sources) Adhesive agent; Translations: [adhesive] Allergy to substance 04-20-20 Rash [facility] (14 sources) hydroCHLOROthiaz malik; Translations: [HYDROCHLOROTHIA ZIDE] Drug Allergy 05-18-20 23 Other: See Comments [facility] (1 source) atorvastatin Drug Allergy 12-20-19 [facility] (1 source) Lisinopril Drug Allergy 12-20-19 [facility] (1 source) Losartan Drug Allergy 12-20-19 [facility] (1 source) rosuvastatin Drug Allergy 12-20-19 [facility] Medications Current Medications Medication Drug Class(es) Dates Sig (Normalized) Sig (Original) acetaminophen 500 mg oral tablet (1 source) Start: 06-04-2023 End: 06-11-2023 take 2 tablets by mouth every six hours as needed acetaminophen (TYLENOL EXTRA STRENGTH) 500 mg tablet Take 2 tablets by mouth every 6 hours as needed for pain for up to 7 days. 56 tablet 0 06/04/2023 06/11/2023 Active Comment on above: Take 2 tablets by mo [facility] every 6 hours as needed for pain for up to 7 days. acetaminophen 325 mg / HYDROcodone bitartrate 5 mg oral tablet (2 sources) Opioid Agonist Start: 09-12-2022 take 1 tablet by mouth every six hours as needed Hydrocodone-Acetamin ophen Active 1 TABLET PO EVERY 6 HOURS NEEDED 12 3 September 12, 2022 calcium carbonate 600 mg / cholecalciferol 0.01 mg oral tablet (2 sources) Vitamin D Start: 12-15-2023 [id number] (Caltrate 600-D Plus Minerals) 600 mg calcium- 800 unit-50 mg tablet Active 1 {tbl} PO THREE TIMES A DAY December 15, 2023 12:00am cholecalciferol 0.05 mg oral tablet (20 sources) Vitamin D Start: 05-18-2018 take 1 tablet by mouth once daily cholecalciferol (vitamin D3) 2,000 unit tablet Active 2000 UNIT PO DAILY May 17, 2018 11:00pm Cholecalciferol, Vitamin D3, 50 mcg (2,000 unit) cap Take by mouth. Active Comment on above: Take by mouth. DULoxetine 20 mg delayed release oral capsule (1 source) Serotonin and Norepinephrine Reuptake Inhibitor Start: 5 take 1 capsule by mouth once daily Duloxetine 20 mg capsule,delayed release(DR/EC) Active 20 mg PO daily October 31, 2024 12:00am ferrous sulfate 325 mg oral tablet (20 sources) Start: 3 take 1 tablet by mouth once daily Ferrous Sulfate 325 mg (65 mg iron) tablet Active 325 mg PO DAILY January 27, 2023 9:53am Start: 11-26-2020 End: 01-27-2023 take 1 tablet by mouth every other day Ferrous Sulfate 325 mg (65 mg iron) tablet Discontinued 650 mg PO EVERY OTHER DAY March 11, 2021 5:11pm January 27, 2023 9:53am Start: 12-30-2016 End: 11-26-2020 take 2 tablets by mouth once daily Ferrous Sulfate 325 MG tablet Discontinued 650 mg PO DAILY December 30, 2016 12:00am November 26, 2020 11:25am Start: 12-30-2016 End: 11-26-2020 take 650 mg by mouth once daily Ferrous Sulfate Discon tinued 650 MG PO DAILY December 30, 2016 12:00am November 26, 2020 11:25am ferrous sulfate 325 mg (65 mg iron) tablet Take 650 mg by mouth every 48 hours. Active Comment on above: Take 650 mg by mouth every 48 hours. hydrocortisone 25 mg/ml topical cream (4 sources) Corticosteroid Start: Hydrocortisone Active 1 APPLIC TOPICAL TWICE A DAY October 18, 2021 11:00pm levothyroxine sodium 0.125 mg oral tablet (20 sources) l-Thyroxine Start: 024 End: take 1 tablet by mouth once daily Levothyroxine 125 mcg tablet Active 125 ug PO DAILY December 19, 2024 10:01am Start: 12-19-2022 End: 02-22-2024 take 1 tablet by mouth once daily Levothyroxine 112 mcg tablet Discontinued 112 ug PO DAILY March 17, 2023 12:29pm December 15, 2023 10:24am Start: 12-01-2022 End: 12-19-2022 take 1 capsule by mouth once daily Levothyroxine 112 mcg capsule Discontinued 112 ug PO DAILY December 01, 2022 12:00am December 19, 2022 12:20pm Start: 09-29-2022 End: 12-01-2022 take 1 tablet by mouth once daily Levothyroxine 150 mcg tablet Discontinued 150 ug PO DAILY November 29, 2022 3:05pm December 01, 2022 8:51am Start: 05-31-2021 End: 09-29-2022 take 1 tablet by mouth once Levothyroxine 137 mcg tabl et Discontinued 137 ug PO .COMPLEX 60 August 04, 2022 2:06pm August 17, 2022 9:38am 137 mcg orally daily, 1 1/2 every Monday; Start: 06-11-2019 End: 05-31-2021 take 1 tablet by mouth once daily Levothyroxine 125 mcg tablet Discontinued 125 ug PO DAILY April 26, 2021 9:03am May 31, 2021 3:18pm Start: 06-11-2018 End: 11-26-2020 take 1 capsule by mouth once daily Levothyroxine 125 mcg capsule Discontinued 125 ug PO DAILY June 11, 2018 1:00am November 26, 2020 11:24am Start: 04-02-2018 End: 06-11-2018 take 1 capsule by mouth once daily Levothyroxine 137 mcg capsule Discontinued 137 ug PO DAILY April 02, 2018 12:00am June 11, 2018 2:29pm Start: 12-30-2016 End: 04-02-2018 take 1 tablet by mouth once daily Levothyroxine 125 MCG tablet Discontinued 125 ug PO DAILY December 30, 2016 12:00am April 02, 2018 10:38am Comment on above: Take 1 tablet by lorenzo th once daily. Multivitamin With Iron tablet (2 sources) Start: 12-15-19 Multivitamin With Iron tablet Active 1 {tbl} PO DAILY December 15, 2023 12:00am ondansetron 4 mg disintegrating oral tablet (20 sources) Serotonin-3 Receptor Antagonist Start: 06-04-20 take 1 tablet by mouth every eight hours as needed ondansetron orally disintegrating (ZOFRAN ODT) 4 mg disintegrating tablet Take 1 tablet by mouth every 8 hours as needed for nausea/vomiting. 12 tablet 06/04/2023 Active Start: 05-18-2023 take 1 tablet by lorenzo th every eight hours as needed ondansetron (ZOFRAN) 4 mg tablet Take 1 tablet by mouth every 8 hours as needed for nausea/vomiting. 90 tablet 0 05/18/2023 Active Start: 09-22-2018 End: 05-28-2020 take 1 tablet by mouth every eight hours as needed for nausea Ondansetron 4 MG tablet Discontinued 4 mg PO EVERY 8 HOURS NEEDED as needed for Nausea September 22, 2018 1:00am May 28, 2020 11:23am Comment on above: Take 1 tablet by lorenzo th every 8 hours as needed for nausea/vomiting. oxyCODONE hydrochloride 5 mg oral tablet (1 source) Opioid Agonist Start: 06-04-20 End: 06-07-20 take 1 tablet by mouth every six hours as needed for pain oxyCODONE IR (ROXICODONE) 5 mg immediate release tablet Indications: Post-operative nausea and vomiting Take 1 tablet by mouth every 6 hours as needed for pain for up to 3 days. 10 tablet 0 06/04/2023 06/07/2023 Active Comment on above: Take 1 tablet by lorenzo th every 6 hours as needed for pain for up to 3 days. pantoprazole 40 mg delayed release oral tablet (14 sources) Proton Pump Inhibitor Start: 11-01-19 take 1 tablet by mouth twice daily Pantoprazole 40 mg tablet,delayed release (DR/EC) Active 40 mg PO TWICE A DAY October 31, 2024 12:00am Start: 06-04-2023 End: 09-02-2023 take 1 tablet by mouth twice daily pantoprazole DR (PROTONIX) 40 mg tablet Take 1 tablet by mouth two times a day. 60 tablet 2 06/04/2023 Active Start: 05-18-2023 End: 08-16-2023 take 1 tablet by mouth once daily pantoprazole DR (PROTONIX) 40 mg tablet Take 1 tablet by mouth once daily. 30 tablet 2 05/18/2023 08/16/2023 Active Comment on above: Take 1 tablet by lorenzo th once daily. Take 1 tablet by lorenzo th two times a day. Completed/Discontinued Medications Medication Drug Class(es) Dates Sig (Normalized) Sig (Original) acetaminophen 325 mg / oxyCODONE hydrochloride 5 mg oral tablet (12 sources) Opioid Agonist Start: 12-30-2016 End: 04-02-2018 Oxycodone-Acetamino phen 1 TABLET tablet Discontinued 1 - 2 {tbl} PO EVERY 4 HOURS NEEDED as needed for Pain December 30, 2016 12:00am April 02, 2018 10:39am Start: 12-30-2016 End: 04-02-2018 take 1 tablet by mouth every four hours as needed Oxycodone-Acetaminophen Discontinued 1 - 2 TABLET PO EVERY 4 HOURS NEEDED December 30, 2016 12:00am April 02, 2018 10:39am [id number] 200 actuat albuterol 0.09 mg/actuat metered dose inhaler (20 sources) beta2-Adrenergic Agonist Start: 08-04-2021 End: 11-29-2022 Albuterol Sulfate 90 mcg/actuation HFA aerosol inhaler Discontinued 1 - 2 NMA INHALATION EVERY 6 HOURS as needed for shortness of breath or wheezing 8.August 04, 2022 3:14pm November 29, 2022 3:05pm Start: 08-04-2021 End: 11-29-2022 take 1 puff(s) by inhalation every six hours Albuterol Sulfate Discontinued 1 - 2 PUFF INHALATION EVERY 6 HOURS 8.August 04, 2022 3:14pm November 29, 2022 3:05pm amLODIPine 5 mg oral tablet (6 sources) Dihydropyridine Calcium Channel Mariah Start: 12-30-2022 End: 01-10-2023 take 1 tablet by mouth once daily Amlodipine 5 mg tablet Discontinued 5 mg PO DAILY December 30, 2022 12:00am January 10, 2023 8:35am amoxicillin 875 mg / clavulanate 125 mg oral tablet (20 sources) Penicillin-class Antibacterial Start: 09-14-2021 End: 10-19-2021 Amoxicillin-Pot Clavulanate 875-125 mg tablet Discontinued 1 {tbl} PO Q12H September 14, 2021 1:00am October 19, 2021 1:55pm Start: 09-14-2021 End: 10-19-2021 take 1 tablet by mouth every twelve hours Amoxicillin-Pot Clavulanate Discontinued 1 TABLET PO Q12H September 14, 2021 1:00am October 19, 2021 1:55pm Start: 09-22-2018 End: 11-20-2019 Amoxicillin-Pot Clavulanate 1 EACH tablet Discontinued 1 {tbl} PO THREE TIMES A DAY September 22, 2018 1:00am November 20, 2019 1:06pm Start: 09-22-2018 End: 11-20-2019 take 1 tablet by mouth three times daily Amoxicillin-Pot Clavulanate Discontinued 1 TABLET PO THREE TIMES A DAY September 22, 2018 1:00am November 20, 2019 1:06pm aspirin 81 mg delayed release oral tablet (20 sources) Platelet Aggregation Inhibitor, Nonsteroidal Anti-inflammatory Drug Start: 04-13-2018 End: 11-29-2022 take 1 tablet by mouth once daily Aspirin (Adult Aspirin Regimen) 81 mg tablet,delayed release (DR/EC) Discontinued 81 mg PO DAILY August 15, 2018 1:35pm May 02, 2019 9:38am Comment on above: Take 81 mg by mouth once daily. atorvastatin 20 mg oral tablet (20 sources) HMG-CoA Reductase Inhibitor Start: 04-19-2018 End: 04-26-2018 take 1 tablet by mouth at bedtime Atorvastatin 20 mg tablet Discontinued 20 mg PO AT BEDTIME April 19, 2018 4:26pm April 26, 2018 2:32pm 24 hr buPROPion hydrochloride 150 mg extended release oral tablet (20 sources) Aminoketone Start: 09-14-2021 End: 01-27-2022 take 1 tablet by mouth once daily in the morning Bupropion Hcl (Wellbutrin Xl) 150 mg tablet extended release 24 hr Discontinued 150 mg PO EVERY MORNING October 19, 2021 2:18pm January 27, 2022 2:49pm carvedilol 3.125 mg oral tablet (20 sources) alpha-Adrenergic Mariah, beta-Adrenergic Mariah Start: 04-19-2018 End: 05-02-2019 take 1 tablet by mouth twice daily Carvedilol 3.125 mg tablet Discontinued 3.125 mg PO TWICE A DAY August 15, 2018 1:35pm May 02, 2019 9:38am cephalexin 500 mg oral tablet (10 sources) Cephalosporin Antibacterial Start: 09-07-2022 End: 09-29-2022 take 1 tablet by mouth three times daily Cephalexin 500 mg tablet Discontinued 500 mg PO THREE TIMES A DAY September 07, 2022 1:00am September 29, 2022 2:55pm ciprofloxacin 500 mg oral tablet (11 sources) Quinolone Antimicrobial Start: 08-29-2022 End: 09-07-2022 take 1 tablet by mouth every twelve hours Ciprofloxacin Hcl 500 mg tablet Discontinued 500 mg PO Q12H August 29, 2022 1:00am September 07, 2022 3:40pm clopidogrel 75 mg oral tablet (20 sources) [id number] Platelet Inhibitor Start: 04-13-2018 End: 08-07-2020 take 1 tablet by mouth once daily Clopidogrel (Plavix) 75 mg tablet Discontinued 75 mg PO DAILY August 15, 2018 1:35pm November 06, 2018 1:17pm Comment on above: Take 75 mg by mouth once daily. codeine phosphate 2 mg/ml / guaiFENesin 20 mg/ml oral solution (12 sources) Opioid Agonist Start: 08-04-2021 End: 09-14-2021 take 1 mL by mouth every six hours as needed for cough Codeine-Guaifenesi n 10-100 mg/5 mL liquid Discontinued 5 mL PO EVERY 6 HOURS as needed for cough 120 August 04, 2021 1:00am September 14, 2021 2:43pm Start: 08-04-2021 End: 09-14-2021 take 1 mL by mouth every six hours Codeine-Guaifenesin Discontinued 5 ML PO EVERY 6 HOURS 120 August 04, 2021 1:00am September 14, 2021 2:43pm escitalopram 10 mg oral tablet (20 sources) Serotonin Reuptake Inhibitor Start: 12-15-2023 End: 10-31-2024 take 1 tablet by mouth once daily Escitalopram Oxalate 10 mg tablet Discontinued 10 mg PO DAILY December 15, 2023 10:05am October 31, 2024 11:33am Start: 01-27-2023 End: 12-15-2023 take 5 mg by mouth once daily Escitalopram Oxalate 10 mg tablet Discontinued 5 mg PO DAILY January 27, 2023 9:52am December 15, 2023 10:05am Start: 01-27-2023 take 5 mg by mouth once daily Escitalopram Oxalate Active 5 MG PO DAILY January 27, 2023 9:52am Start: 11-29-2022 End: 01-27-2023 Escitalopram Oxalate 10 mg t ablet Discontinued 10 mg PO Every 3 Days November 29, 2022 3:05pm January 27, 2023 9:53am Start: 06-21-2021 End: 11-29-2022 take 1 tablet by mouth once daily Escitalopram Oxalate 10 mg tablet Discontinued 10 mg PO DAILY February 15, 2022 9:07am August 04, 2022 3:16pm Start: 11-26-2020 End: 06-21-2021 take 5 mg by mouth once daily Escitalopram Oxalate 10 mg tablet Discontinued 5 mg PO DAILY March 17, 2021 12:19pm April 26, 2021 9:04am Start: 11-26-2020 End: 06-21-2021 take 5 mg by mouth once daily Escitalopram Oxalate Dis continued 5 MG PO DAILY March 17, 2021 12:19pm April 26, 2021 9:04am Start: 11-26-2020 End: 11-26-2020 Escitalopram Oxalate 10 mg t ablet Discontinued 10 mg PO November 26, 2020 12:00am November 26, 2020 11:25am Start: 04-03-2018 End: 07-22-2020 take 1 tablet by mouth once daily Escitalopram Oxalate (Lexapro) 20 mg tablet Discontinued 20 mg PO DAILY April 03, 2018 12:00am July 22, 2020 3:04pm Start: 04-02-2018 End: 04-03-2018 take 1 tablet by mouth once daily Escitalopram Oxalate (Lexapro) 10 mg tablet Discontinued 10 mg PO DAILY April 02, 2018 12:00am April 03, 2018 3:10pm End: 08-07-2020 take 5 mg by mouth once daily escitalopram oxalate (LE XAPRO) 20 mg tablet Take 5 mg by mouth once daily. 0 08/07/2020 Discontinued (Dosage adjustment) Comment on above: Take 20 mg by mouth once daily. Take 5 mg by mouth o nce daily. hydroCHLOROthiazide 25 mg oral tablet (6 sources) Thiazide Diuretic Start : 01-10 End: 05-04 take 1 tablet by mouth once daily in the morning Hydrochlorothiazide 25 mg tablet Discontinued 25 mg PO EVERY MORNING January 10, 2023 12:00am May 04, 2023 2:48pm hydroCHLOROthiazide 12.5 mg / losartan potassium 50 mg oral tablet (20 sources) Thiazide Diuretic, Angiotensin 2 Receptor Mariah Start : 06-26 End: 11-26 Losartan-Hydrochlorothia zide (Hyzaar) 50-12.5 mg tablet Discontinued 1 {tbl} PO DAILY July 22, 2020 3:00pm November 26, 2020 10:21am ketorolac tromethamine 10 mg oral tablet (10 sources) Nonsteroidal Anti-inflammatory Drug, Cyclooxygenase Inhibitor Start : 09-12 End: 09-29 take 1 tablet by mouth three times daily as needed for pain Ketorolac 10 mg tablet Discontinued 10 mg PO THREE TIMES A DAY as needed for pain 15 5 September 12, 2022 1:00am September 29, 2022 2:55pm liothyronine sodium 0.005 mg oral tablet (20 sources) l-Triiodothyronine Start : 06-11 End: 01-17 take 2 tablets by mouth in the morning, then take 1 tablet by mouth in the evening liothyronine (CYTOMEL) 5 mcg tablet Indications: Acquired hypothyroidism Two pills (10 mcg) by mouth in AM, one pill (5 mcg) by mouth in PM 270 tablet 3 05/22/2020 01/17/2023 Discontinued (Discontinued by another Health Care Provider) Start: 06-11-2018 End: 03-11-2021 Liothyronine 5 mcg tablet Discontinued 5 ug PO .COMPLEX June 11, 2018 2:30pm March 11, 2021 5:11pm 5 mcg PO 2 tablets in the am and 1 tablet in the afternoon Start: 04-02-2018 End: 06-11-2018 Liothyronine 5 mcg tablet Discontinued 5 ug PO .COMPLEX April 03, 2018 3:09pm June 11, 2018 2:31pm 5 mcg PO 1 tablet in the am and 2 tablets in the afternoon Start: 12-30-2016 End: 04-02-2018 take 1 tablet by mouth twice daily Liothyronine 5 MCG tablet Discontinued 5 ug PO TWICE A DAY December 30, 2016 12:00am April 02, 2018 10:39am Comment on above: Two pills (10 mcg) b y mouth in AM, one pill (5 mcg) by mouth in PM 3 ml liraglutide 6 mg/ml pen injector (18 sources) GLP-1 Receptor Agonist Start: 05-02-2023 End: 12-15-2023 Liraglutide (Victoza 2-Ebenezer) 0.6 mg/0.1 mL (18 mg/3 mL) pen injector Discontinued 1.2 mg SC DAILY May 02, 2023 12:40pm December 15, 2023 10:05am Start: 01-31-2023 End: 05-02-2023 inject 0.6 mg by subcutaneous injection once daily, then inject 1.8 mg by subcutaneous injection once daily Liraglutide (Victoza 2-Ebenezer) 0.6 mg/0.1 mL (18 mg/3 mL) pen injector Discontinued 0 SC .COMPLEX March 23, 2023 3:27pm May 02, 2023 12:41pm inject 0.6mg subcutaneously once daily x 7 days; then 1.2mg daily, not to exceed 1.8mg/day subcut lisinopril 10 mg oral tablet (8 sources) Angiotensin Converting Enzyme Inhibitor Start: 12-15-2022 End: 01-17-2023 take 1 tablet by mouth once daily Lisinopril 10 mg tablet Discontinued 10 mg PO DAILY December 15, 2022 12:00am December 30, 2022 10:06am Comment on above: Take 10 mg by mouth once daily. methylPREDNISolone 4 mg oral tablet (12 sources) Corticosteroid Start: 04-26-2021 End: 05-28-2021 take 1 tablet by mouth once Methylprednisolone (Medrol (Ebenezer)) 4 mg tablets,dose pack Discontinued 0 PO per package directions April 26, 2021 12:00am May 28, 2021 11:30am PO PER PKG DIR metoprolol tartrate 25 mg oral tablet (20 sources) beta-Adrenergic Mariah Start: 05-28-2020 End: 08-08-2024 take 1 tablet by mouth once daily Metoprolol Tartrate 25 mg tablet Discontinued 25 mg PO DAILY January 05, 2024 2:29pm March 04, 2024 12:06pm Start: 06-04-2019 take 0.5 tablet by m outh twice daily in the evening metoprolol tartrate, short acting, (LOPRESSOR) 25 mg tablet Take 25 mg by mouth twice daily. 1/2 tablet in the morning and 1/2 tablet in the evening. 11 06/04/2019 Active Start: 05-02-2019 End: 05-28-2020 Metoprolol Tartrate 25 mg ta blet Discontinued 12.5 mg PO TWICE A DAY May 02, 2019 12:00am May 28, 2020 11:23am Start: 05-02-2019 End: 05-28-2020 take 12.5 mg by mouth twice daily Metoprolol Tartrate Discontinued 12.5 MG PO TWICE A DAY May 02, 2019 12:00am May 28, 2020 11:23am Comment on above: Take 25 mg by mouth twice daily. 1/2 tablet in the morning and 1/2 tablet in the evening. naproxen 500 mg oral tablet (12 sources) Nonsteroidal Anti-inflammatory Drug Start: 7 End: 8 take 1 tablet by mouth twice daily Naproxen 500 MG tablet Discontinued 500 mg PO TWICE A DAY December 30, 2016 12:00am April 02, 2018 10:39am predniSONE 20 mg oral tablet (12 sources) Start: 2 End: 2 take 2 tablets by mouth once daily Prednisone 20 mg tablet Discontinued 40 mg PO DAILY September 20, 2021 1:00am October 19, 2021 1:55pm Start: 09-20-2021 End: 10-19-2021 take 40 mg by mouth once daily Prednisone Discontinued 40 MG PO DAILY September 20, 2021 1:00am October 19, 2021 1:55pm promethazine hydrochloride 12.5 mg oral tablet (12 sources) Phenothiazine Start: 07-28-2021 End: 09-14-2021 take 1 tablet by mouth every six hours as needed for nausea and vomiting Promethazine 12.5 mg tablet Discontinued 12.5 mg PO EVERY 6 HOURS as needed for nausea and vomiting July 28, 2021 1:00am September 14, 2021 2:43pm rosuvastatin calcium 10 mg oral tablet (20 sources) HMG-CoA Reductase Inhibitor Start: 04-26-2018 End: 06-11-2018 take 1 tablet by mouth once daily Rosuvastatin (Crestor) 10 mg tablet Discontinued 10 mg PO .COMPLEX May 18, 2018 4:13pm June 11, 2018 2:29pm 10 mg PO Once daily: don't start until 05/25/2018 72 hr scopolamine 0.0139 mg/hr transdermal system (7 sources) Anticholinergic Start: 05-18-2023 End: 06-17-2023 scopolamine (TRANSDERM-SCOP) patch 1.5 mg/72 hr (delivers 1 mg over 3 days) Apply 1 Patch as directed every 72 hours. 10 Patch 0 05/18/2023 06/17/2023 Comment on above: Apply 1 Patch as dir ected every 72 hours. Semaglutide (6 sources) Start: 01-27-2023 End: 01-31-2023 Semaglutide (Ozempic) 1 mg/dose (4 mg/3 mL) pen injector Discontinued 1 mg SC EVERY WEEK January 27, 2023 12:00am January 31, 2023 10:29am Start: 01-27-2023 End: 01-31-2023 Semaglutide (Ozempic) 1 mg/d ose (4 mg/3 mL) pen injector Discontinued 1 MG SC EVERY WEEK 3 January 26, 2023 11:00pm January 31, 2023 9:29am Start: 01-27-2023 End: 01-31-2023 Semaglutide (Ozempic) 1 mg/d ose (4 mg/3 mL) pen injector Discontinued 1 MG SC EVERY WEEK 3 January 27, 2023 12:00am January 31, 2023 10:29am tamsulosin hydrochloride 0.4 mg oral capsule (10 sources) alpha-Adrenergic Mariah Start: 09-12-2022 End: 09-29-2022 take 1 capsule by mouth at bedtime Tamsulosin (Flomax) 0.4 mg capsule Discontinued 0.4 mg PO AT BEDTIME September 12, 2022 1:00am September 29, 2022 2:56pm Problems Active Problems Problem Classification Problem Date Documented Da te Episodic/Chronic Abdominal pain (5 sources) Unspecified abdominal pain; Translations: [Abdominal pain, other specified site] 09-05-2022 Episodic Acute cerebrovascular disease (11 sources) Cerebrovascular accident; Translations: [Cerebral infarction, unspecified] 11-29-2022 Chronic Anxiety disorders (12 sources) Mixed anxiety and depressive disorder; Translations: [Anxiety disorder, unspecified] 09-14-2021 Chronic Asthma (20 sources) Asthma; Translations: [Unspecified asthma, uncomplicated] Onset: 08-17-2022 Chronic Comment on above: EXERCISE-INDUCED AST HMA-INHALER PRN Blindness and vision defects (10 sources) Eye / vision finding; Translations: [Unspecified visual disturbance] 11-29-2022 Episodic Calculus of urinary tract (20 sources) Ureteric colic; Translations: [Unspecified renal colic] 09-12-2022 Episodic Cardiac dysrhythmias (2 sources) Irregular heart beat; Translations: [Cardiac arrhythmia, unspecified] 05-03-2024 Chronic Coronary atherosclerosis and other heart disease (20 sources) Coronary atherosclerosis; Translations: [Atherosclerotic heart disease of [place] coronary artery without angina pectoris] Onset: 8 Chronic Comment on above: Left heart cath in 2 000 @ [facility] in [place]: nonobstructive disease, medical management only(done for cardiomyopathy). 04/19/2018: BLANCO to proximal LAD after FFR eval showed 0.84. Pt received a 3.0 x 28 Promus Synergy stent with primary deployment and had exact same anginal symptoms with balloon inflation. 3.0 x 28 Promus Syne rgy to proximal LAD in April 2018; Diabetes mellitus without complication (20 sources) Type 2 diabetes mellitus without complication; Translations: [Type 2 diabetes mellitus without complications] Onset: 3 03-30-2023 Chronic Diabetes mellitus without complication (20 sources) Hyperglycemia; Translations: [Hyperglycemia, unspecified] 03-19-2021 Episodic Disorders of lipid metabolism (14 sources) Pure hypercholesterolemia; Translations: [Pure hypercholesterolemia, unspecified] Chronic Disorders of teeth and jaw (12 sources) Arthritis of left temporomandibular joint; Translations: [Arthritis of left temporomandibular joint] 09-20-2021 Episodic Essential hypertension (20 sources) Essential hypertension; Translations: [Essential (primary) hypertension] Onset: 3 Chronic Fluid and electrolyte disorders (5 sources) Mild dehydration; Translations: [Dehydration] 06-27-2023 Episodic Genitourinary symptoms and ill-defined conditions (10 sources) Dysuria; Translations: [Dysuria] 08-29-2022 Episodic Heart valve disorders (20 sources) Tricuspid incompetence, non-rheumatic ; Translations: [Nonrheumatic tricuspid (valve) insufficiency] Chronic Comment on above: Mild (1+) per echo Malaise and fatigue (20 sources) Fatigue; Translations: [Other fatigue] 01-25-2017 Episodic Menopausal disorders (10 sources) Menopausal syndrome; Translations: [Menopausal and female climacteric states] 11-09-2022 Chronic Menopausal disorders (1 source) Long-term current use of thyroid hormone replacement therapy; Translations: [Hormone replacement therapy] Episodic Mood disorders (1 source) Depressive disorder; Translations: [Controlled depression] 03-10-2023 Chronic Nonspecific chest pain (12 sources) Chest pain; Translations: [Chest pain, unspecified] 11-26-2020 Episodic Nutritional deficiencies (5 sources) Iron deficiency; Translations: [Iron deficiency] 03-08-2016 Chronic Nutritional deficiencies (20 sources) Iron deficiency; Translations: [Iron deficiency] Episodic Osteoarthritis (20 sources) Bilateral osteoarthritis of knees; Translations: [Bilateral primary osteoarthritis of knee] 03-25-2021 Chronic Other and ill-defined heart disease (20 sources) Left ventricular cardiac dysfunction; Translations: [Heart disease, unspecified] Onset: 04-02-2018 Chronic Other circulatory disease (8 sources) Elevated blood pressure; Translations: [Elevated blood-pressure reading, without diagnosis of hypertension] 11-29-2022 Episodic Other circulatory disease (2 sources) Elevated blood-pressure reading, without diagnosis of hypertension; Translations: [Elevated blood pressure reading without diagnosis of hypertension] 11-29-2022 Episodic Other connective tissue disease (8 sources) Weakness of face muscles; Translations: [Facial weakness] 11-29-2022 Episodic Other connective tissue disease (2 sources) Facial weakness; Translations: [Facial weakness] 11-29-2022 Episodic Other endocrine disorders (1 source) Disorder of adrenal gland; Translations: [Disorder of adrenal gland, unspecified] Chronic Other gastrointestinal disorders (5 sources) History of sleeve gastrectomy; Translations: [Bariatric surgery status] 06-14-2023 Episodic Other gastrointestinal disorders (6 sources) History of bariatric surgical procedure; Translations: [Bariatric surgery status] 06-19-2023 Episodic Other hereditary and degenerative nervous system conditions (12 sources) Restless legs; Translations: [Restless legs syndrome] 09-04-2019 Chronic Other injuries and conditions due to external causes (12 sources) Injury of left shoulder; Translations: [Unspecified injury of left shoulder and upper arm, initial encounter] 04-27-2021 Episodic Other lower respiratory disease (12 sources) Dyspnea; Translations: [Shortness of breath] 04-13-2018 Episodic Other nervous system disorders (8 sources) Paresthesia; Translations: [Paresthesia of skin] 11-29-2022 Episodic Other nervous system disorders (2 sources) Paresthesia of skin; Translations: [Disturbance of skin sensation] 11-29-2022 Episodic Other non-traumatic joint disorders (6 sources) Shoulder pain; Translations: [Pain in left shoulder] 04-27-2021 Episodic Other non-traumatic joint disorders (6 sources) Pain in left shoulder; Translations: [Left shoulder pain] 04-27-2021 Episodic Other non-traumatic joint disorders (1 source) Pain in unspecified joint; Translations: [Pain in unspecified joint] Onset: 5 Episodic Other nutritional; endocrine; and metabolic disorders (20 sources) Morbid obesity; Translations: [Morbid (severe) obesity due to excess calories] Onset: 8 05-24-2018 Chronic Other nutritional; endocrine; and metabolic disorders (13 sources) Obesity; Translations: [Obesity, unspecified] 06-01-2021 Chronic Other nutritional; endocrine; and metabolic disorders (2 sources) Obesity, unspecified; Translations: [Obesity, unspecified] 11-29-2022 Chronic Other nutritional; endocrine; and metabolic disorders (20 sources) Body mass index 40+ - severely obese; Translations: [Body mass index (BMI) 40.0-44.9, adult] Onset: 8 Chronic Other nutritional; endocrine; and metabolic disorders (1 source) Psychosomatic factor in physical condition; Translations: [Morbid (severe) obesity due to excess calories] 03-10-2023 Chronic Other nutritional; endocrine; and metabolic disorders (2 sources) Severe obesity; Translations: [Morbid (severe) obesity due to excess calories] 03-30-2023 Chronic Other nutritional; endocrine; and metabolic disorders (2 sources) Obese class II; Translations: [Obesity, unspecified] 06-14-2023 Chronic Other nutritional; endocrine; and metabolic disorders (1 source) Morbid (severe) obesity due to excess calories; Translations: [Morbid (severe) obesity due to excess calories] Onset: 5 Chronic Other nutritional; endocrine; and metabolic disorders (1 source) Body mass index (BMI) 35.0-35.9, adult; Translations: [Body mass index [BMI] 35.0-35.9, adult] Onset: 5 Chronic Other screening for suspected conditions (not mental disorders or infectious disease) (20 sources) Patient encounter status; Translations: [Encounter for screening for malignant neoplasm of colon] Onset: 8 Episodic Other skin disorders (12 sources) Vitiligo; Translations: [Vitiligo] 04-02-2018 Episodic Other upper respiratory infections (12 sources) Sinusitis; Translations: [Chronic sinusitis, unspecified] 09-20-2021 Chronic Other upper respiratory infections (2 sources) Acute pharyngitis; Translations: [Acute pharyngitis, unspecified] 10-31-2024 Episodic Otitis media and related conditions (17 sources) Otitis media; Translations: [Otitis media, unspecified, unspecified ear] 09-14-2021 Episodic Lori-; endo-; and myocarditis; cardiomyopathy (except that caused by tuberculosis or sexually transmitted disease) (14 sources) Cardiomyopathy; Translations: [Other cardiomyopathies] Chronic Comment on above: EF 45% per echo 03/23 Residual codes; unclassified (1 source) FH: Thyroid disorder; Translations: [Family history of other endocrine, nutritional and metabolic diseases] Episodic Residual codes; unclassified (12 sources) History of laparoscopy; Translations: [Other specified postprocedural states] 12-30-2021 Episodic Residual codes; unclassified (12 sources) History of cardiac catheterization; Translations: [Other specified postprocedural states] 12-30-2021 Episodic Comment on above: 1999 @ [facility] in [facility] for cardiomyopathy; 04/19/2018 @ [facility]: PCI to proximal LAD.06/26/2019:Normal LV size, wall motion,and systolic function; Widely patent LAD stent with angiographically normal LCX and RCA. Retinal detachments; defects; vascular occlusion; and retinopathy (1 source) Hypertensive retinopathy; Translations: [Hypertensive retinopathy, unspecified eye] Chronic Screening and history of mental health and substance abuse codes (1 source) History of bulimia nervosa; Translations: [Personal history of other mental and behavioral disorders] 03-10-2023 Episodic Spondylosis; intervertebral disc disorders; other back problems (20 sources) Neck pain; Translations: [Cervicalgia] Onset: 3 04-27-2021 Episodic Thyroid disorders (20 sources) Hypothyroidism; Translations: [Hypothyroidism due to [place]'s thyroiditis] Onset: 4 Resolved: 3 03-09-2016 Chronic Transient cerebral ischemia (6 sources) Transient cerebral ischemia; Translations: [Transient cerebral ischemic attack, unspecified] 04-20-2023 Chronic Unclassified (10 sources) Body mass index 40+ - severely obese; Translations: [Body mass index (BMI) greater than 40] 08-02-2021 Unclassified (1 source) NO SHOW Unclassified (1 source) Obesity, class 2; Translations: [Obesity, class 2] Onset: Viral infection (12 sources) Disease caused by 2019-nCoV; Translations: [COVID-19] 08-02-2021 Episodic Past or Other Problems Problem Classification Problem Date Documented Da te Episodic/Chronic Coronary atherosclerosis and other heart disease (20 sources) Stented coronary artery; Translations: [Presence of coronary angioplasty implant and graft] Onset: 04-19-2018 Episodic Comment on above: 3.0 x 28 Promus Syne rgy to proximal LAD Nausea and vomiting (14 sources) Postoperative nausea and vomiting; Translations: [Nausea with vomiting, unspecified] Onset: 05-18-2023 05-18-2023 Episodic Other circulatory disease (14 sources) History of transient ischemic attack; Translations: [Personal history of transient ischemic attack (TIA), and cerebral infarction without residual deficits] Onset: 05-18-2023 05-18-2023 Episodic Other circulatory disease (14 sources) History of cardiomyopathy; Translations: [Personal history of other diseases of the circulatory system] Onset: 05-18-2023 05-18-2023 Episodic Other gastrointestinal disorders (1 source) Bariatric surgery status; Translations: [S/P laparoscopic sleeve gastrectomy] Onset: 09-15-2023 Episodic Results Test Name Value Interpretation Reference Range Facility Endocrinology Visit Reporton 12-19-2024 Endocrinology Visit Report [facility] [address] [place] [address] OFFICE VISIT Date of Service: 12/19/24 MR#: [id number] Acct: [id number] Name: SHAR DANIELS Rep #: [id number] : 1965 Provider: Geovanni Antonio Age/Sex: 59/F [place] [facility] [place]: Signed Intake Vital Signs 12/15/23 10:08 03/04/24 11:31 10/31/24 11:39 12/19/24 09:59 Height 5 ft 2 in 5 ft 2 in 5 ft 2 in 5 ft 2 in Weight: 192 lb BMI 35.1 BP 132/78 H Blood Pressure Location Lt brachial Position Sitting Pulse 64 Pulse Source Monitor Pulse Oximetry (%) 97 Oxygen Delivery Method room air Intake Visit Reasons: 1 Y FU Chief Complaint: Diabetes, hypothyroidism Is patient in pain?: Yes Allergies losartan Allergy (Intermediate, Verified 12/19/24 10:01) muscles locked up adhesive Allergy (Mild, Verified 12/19/24 10:01) Rash Sulfa (Sulfonamide Antibiotics) Allergy (Verified 12/19/24 10:01) Hives lisinopril Adverse Reaction (Severe, Verified 12/19/24 10:01) cough rosuvastatin (From Crestor) Adverse Reaction (Severe, Verified 12/19/24 10:01) Lymphadenopathy, edema, hyperthyroid atorvastatin (From Lipitor) Adverse Reaction (Intermediate, Verified 12/19/24 10:01) Muscle aches/myalgias Medications ???Medication ???Instructions ???Recorded ???Confirmed ???Type albuterol sulfate 90 mcg/actuation 1 - 2 puff inhalation Q6H PRN 12/19/24 History aerosol inhaler SHORTNESS OF BREATH aspirin 81 mg tablet,delayed 81 mg PO DAILY HEART HEALTH 12/19/24 History release (Adult Aspirin Regimen) ferrous sulfate 325 mg (65 mg 325 mg PO DAILY SUPPLEMENT 3 12/19/24 History iron) tablet calcium 600 mg-D3 800 unit-mag11 1 tab PO TID 12/15/23 12/19/24 His tory 50 [id number] orat tablet (Caltrate 600-D Plus Minerals) multivitamin with iron 1 tab PO DAILY 12/15/23 12/19/24 H istory metoprolol tartrate 25 mg tablet 25 mg PO DAILY BLOOD PRESSURE #90 08/08/24 12/19/24 Rx tabs duloxetine 20 mg capsule,delayed 20 mg PO QDAY 10/31/24 12/19/24 Hi story release pantoprazole 40 mg tablet,delayed 40 mg PO BID 10/31/24 12/19/24 Hi story release levothyroxine 125 mcg tablet 125 mcg PO DAILY #90 tabs 12/19/24 12/19/24 Rx PFSH Medical History Irregular heart rhythm Type 2 diabetes mellitus Wears glasses Post-menopausal Anxiety History of steroid therapy Thyroid disease Anemia Migraine headache Syncope Shortness of breath on exertion History of edema History of echocardiogram Normal stress echocardiogram Hypertension Cardiology follow-up encounter History of irregular heartbeat Colon cancer screening Preventative health care Essential hypertension Sinusitis Arthritis of left temporomandibular joint Anxiety and depression Otitis media Obesity Hyperglycemia Morbid obesity Hypertension Arthritis Thyroid disorder H/O bronchitis Asthma Pure hypercholesterolemia Atherosclerosis of [place] coronary artery of [place] heart without angina pectoris Shortness of breath Abnormal echocardiogram (03/23/18) Nonrheumatic mitral (valve) insufficiency Nonrheumatic tricuspid (valve) insufficiency Nonischemic cardiomyopathy Left ventricular dysfunction Vitiligo Hypothyroidism Surgical History H/O gastric sleeve History of cardiac catheterization Hx of laparoscopy History of colonoscopy History of laparoscopy History of left heart catheterization Stented coronary artery (04/19/18) History of cholecystectomy Family History Father CAD (coronary artery disease) Diabetes Dementia Heart disease Mother CAD (coronary artery disease) Hypertension Thyroid disorder Heart disease Sister Diabetes Type II Thyroid disorder Colon polyps Crohn's disease Sister Diabetes Type II Thyroid disorder Social History Smoking Status: Never smoker alcohol intake: current alcohol intake frequency: holidays/special occasions only substance use type: does not use caffeine: Yes Type: coffee Number of servings: 2 what type of physical activity do you participate in: none seatbelt use: always do you feel safe at home: Yes additional social history: - Sonny [facility] HPI Chief Complaint: Diabetes, hypothyroidism Details: SHAR DANIELS, is a 59 F who presents to the office today for follow up. She has hypothyroidism. Last year, TSH was elevated. In September, TSH was 0.498 She is taking levothyroxine 125 mcg daily. She has history of DM type 2. She is s/p gastric sleeve. She has lost 48 pounds. (more content not included)... Normal [facility] Rapid group A Streptococcus antigen assay at point of careOrdered By: Dru Muñiz on 10-31-2024 S. pyogenes Ag IA.rapid Ql (Throat) Negative [facility] Urgent Care Visit Reporton 0 3-27-2025 Urgent Care Visit Report [facility] [address], [address] [place] [address] OFFICE VISIT Date of Service: 10/31/24 MR#: [id number] Acct: [id number] Name: SHAR DANIELS Rep #: [id number] : 1965 Provider: KAREN Monaco Age/Sex: 59/F Location: [facility] Status: Signed Intake Vital Signs 03/04/24 11:31 10/31/24 11:39 Height 5 ft 2 in 5 ft 2 in Weight: 188 lb BMI 34.4 BP 108/62 Position Sitting Pulse 80 Temp 98.1 F Temp Source Oral Pulse Oximetry (%) 99 Oxygen Delivery Method room air Intake Visit Reasons: SORE THROAT Accompanied by: Self Allergies losartan Allergy (Intermediate, Verified 10/31/24 11:32) muscles locked up adhesive Allergy (Mild, Verified 10/31/24 11:32) Rash Sulfa (Sulfonamide Antibiotics) Allergy (Verified 10/31/24 11:32) Hives lisinopril Adverse Reaction (Severe, Verified 10/31/24 11:32) cough rosuvastatin (From Crestor) Adverse Reaction (Severe, Verified 10/31/24 11:32) Lymphadenopathy, edema, hyperthyroid atorvastatin (From Lipitor) Adverse Reaction (Intermediate, Verified 10/31/24 11:32) Muscle aches/myalgias Medications ???Medication ???Instructions ???Recorded ???Confirmed ???Type albuterol sulfate 90 mcg/actuation 1 - 2 puff inhalation Q6H PRN 03/04/24 History aerosol inhaler SHORTNESS OF BREATH aspirin 81 mg tablet,delayed 81 mg PO DAILY HEART HEALTH 10/31/24 History release (Adult Aspirin Regimen) ferrous sulfate 325 mg (65 mg 325 mg PO DAILY SUPPLEMENT 3 03/04/24 History iron) tablet calcium 600 mg-D3 800 unit-mag11 1 tab PO TID 12/15/23 03/04/24 His tory 50 [id number]-khoa-s.b orat tablet (Caltrate 600-D Plus Minerals) multivitamin with iron 1 tab PO DAILY 12/15/23 03/04/24 H istory levothyroxine 125 mcg tablet 125 mcg PO DAILY #90 tabs 06/18/24 10/31/24 Rx metoprolol tartrate 25 mg tablet 25 mg PO DAILY BLOOD PRESSURE #90 08/08/24 10/31/24 Rx tabs duloxetine 20 mg capsule,delayed 20 mg PO QDAY 10/31/24 10/31/24 Hi story release pantoprazole 40 mg tablet,delayed 40 mg PO BID 10/31/24 10/31/24 Hi story release Nurse's Note: Patient has a Sore throat, fever for a couple days. [facility] Medical History (Updated 10/31/24 @ 13:16 by Dru JONES, PA) Irregular heart rhythm Type 2 diabetes mellitus Wears glasses Post-menopausal Anxiety History of steroid therapy Thyroid disease Anemia Migraine headache Syncope Shortness of breath on exertion History of edema History of echocardiogram Normal stress echocardiogram Hypertension Cardiology follow-up encounter History of irregular heartbeat Colon cancer screening Preventative health care Essential hypertension Sinusitis Arthritis of left temporomandibular joint Anxiety and depression Otitis media Obesity Hyperglycemia Morbid obesity Hypertension Arthritis Thyroid disorder H/O bronchitis Asthma Pure hypercholesterolemia Atherosclerosis of [place] coronary artery of [place] heart without angina pectoris Shortness of breath Abnormal echocardiogram (03/23/18) Nonrheumatic mitral (valve) insufficiency Nonrheumatic tricuspid (valve) insufficiency Nonischemic cardiomyopathy Left ventricular dysfunction Vitiligo Hypothyroidism Surgical History H/O gastric sleeve History of cardiac catheterization Hx of laparoscopy History of colonoscopy History of laparoscopy History of left heart catheterization Stented coronary artery (04/19/18) History of cholecystectomy Family History Father CAD (coronary artery disease) Diabetes Dementia Heart disease Mother CAD (coronary artery disease) Hypertension Thyroid disorder Heart disease Sister Diabetes Type II Thyroid disorder Colon polyps Crohn's disease Sister Diabetes Type II Thyroid disorder Social History Smoking Status: Never smoker alcohol intake: current alcohol intake frequency: holidays/special occasions only substance use type: does not use caffeine: Yes Type: coffee Number of servings: 2 what type of physical activity do you participate in: none seatbelt use: always do you feel safe at home: Yes additional social history: - Sonny HPI HPI Details: SHAR DANIELS, is a 59 F who presents to the office today for complaint of a scratchy throat for the past 3 days. Patient states that her employer wanted her to be checked out as she has been around other people at work with strep. Patient denies any fever, chills, sweats. No nausea, vomiting, diarrhea. No loss of taste or smell. No other associated symptoms or alleviating/aggravating factors. ROS (more content not included)... Normal [facility] ANTINUCLEAR ANTIBODIES DIREC Ton 10-04-2024 MELINA,DIRECT Negative Normal Negative [facility] Comment on above: Result Comment: Perf ormed at: [employer] [id number] Field Tech: Gómez Aragon PhD, Phone: [phone] Performed By: #### L [id number], L501.9520, L500.4100, L4600.0100, L3100.5475, L101.9900, L100.0100, L505.7010, L500.4050 ####[facility] [place], [address] CCP IgG Antibodieson 025 CCP IgG Ab. 4 units Normal 0-19 [facility] Comment on above: Result Comment: Nega tive <20 Weak positive 20 - 39 Moderate positive 40 - 59 Strong positive >59 Performed at: [employer] [id number] Field Tech: Gómez Aragon PhD, Phone: [phone] Performed By: #### L [id number], L501.9520, L500.4100, L4600.0100, L3100.5475, L101.9900, L100.0100, L505.7010, L500.4050 ####[facility] [address] [place], [address] MELINA serumOrdered By: Susanna clifford on 10-02-2024 Anti-Nuclear Antibody Screen Negative Negative [facility] Comment on above: Performed at: [facility] [id number] [place], [place] [id number] Director: Gómez Aragon PhD, Phone: [phone] Absolute lymphocyte countOrd ered By: Susanna Solorzanoder on 10-02-2024 Lymphocytes Auto (Unsp spec) [#/Vol] 1.92 10*3/uL 0.83-4.51 [facility] Absolute neutrophil countOrd ered By: Ssuanna Jazz on 10-02-2024 Neutrophils (Bld) [#/Vol] 3.8 10*3/uL 2.0-7.7 [facility] Automated lymphocyte count a s percentage of total leukocytesOrdered By: Susanna Jazz on 10-02-2024 Lymphocytes/100 WBC Auto (Unsp spec) 29.2 % -41 [facility] BUN/creatinine ratioOrdered By: Susanna Jazz on 10-02-2024 Urea nitrogen/Creatinine [Mass ratio] 30.2 mg/mg High 10- [facility] Basophil percentageOrdered B y: Susanna Jazz on 10-02-2024 Basophils/100 WBC (Bld) 0.6 % 0-1 [facility] Bilirubin, totalOrdered By: Susanna Jazz on 10-02-2024 Bilirubin [Mass/Vol] 1.26 mg/dL 0.00-1.30 [facility] CBC W/Diff, Automatedon 09-08 Absolute Lymph 1.92 X10 3/uL Normal 0.83-4.51 [facility] Comment on above: Performed By: #### L 501.6710, L501.9520, L500.4100, L4600.0100, L3100.5475, L101.9900, L100.0100, L505.7010, L500.4050 ####[facility] [address] [place], [address] Absolute Neut 3.8 X10 3/uL Normal 2.0-7.7 [facility] Comment on above: Performed By: #### L 501.6710, L501.9520, L500.4100, L4600.0100, L3100.5475, L101.9900, L100.0100, L505.7010, L500.4050 ####[facility] [address] [place], [address] Basophils/100 WBC (Bld) 0.6 % Normal 0-1 [facility] Comment on above: Performed By: #### L 501.6710, L501.9520, L500.4100, L4600.0100, L3100.5475, L101.9900, L100.0100, L505.7010, L500.4050 ####[facility] [address] [place], [address] Eosinophils/100 WBC (Bld) 3.3 % Normal 0-5 [facility] Comment on above: Performed By: #### L 501.6710, L501.9520, L500.4100, L4600.0100, L3100.5475, L101.9900, L100.0100, L505.7010, L500.4050 ####[facility] [address] [place], [address] Erythrocyte distribution width (RBC) [Ratio] 13.4 % Normal 11.6-14.6 [facility] Comment on above: Performed By: #### L 501.6710, L501.9520, L500.4100, L4600.0100, L3100.5475, L101.9900, L100.0100, L505.7010, L500.4050 ####[facility] [address] [place], [address] Hematocrit (Bld) [Volume fraction] 40.5 % Normal 37-47 [facility] Comment on above: Performed By: #### L 501.6710, L501.9520, L500.4100, L4600.0100, L3100.5475, L101.9900, L100.0100, L505.7010, L500.4050 ####[facility] [address] [place], [address] Hemoglobin (Bld) [Mass/Vol] 12.8 g/dL Normal 12.0-15.0 [facility] Comment on above: Performed By: #### L 501.6710, L501.9520, L500.4100, L4600.0100, L3100.5475, L101.9900, L100.0100, L505.7010, L500.4050 ####[facility] [address] [place], [address] IG% 0.300 Normal 0.0-0.9 [facility] Comment on above: Result Comment: IG% - Immature Granulocytes (promyelocytes, myelocytes and metamyelocytes) > 1% indicates that a LEFT SHIFT is Present. Performed By: #### L 501.6710, L501.9520, L500.4100, L4600.0100, L3100.5475, L101.9900, L100.0100, L505.7010, L500.4050 ####[facility] [address] [place], [address] Lymphocytes/100 WBC (Bld) 29.2 % Normal 19-41 [facility] Comment on above: Performed By: #### L 501.6710, L501.9520, L500.4100, L4600.0100, L3100.5475, L101.9900, L100.0100, L505.7010, L500.4050 ####[facility] [address] [place], [address] MCH (RBC) [Entitic mass] 29.7 pg Normal 27.0-32.0 [facility] Comment on above: Performed By: #### L 501.6710, L501.9520, L500.4100, L4600.0100, L3100.5475, L101.9900, L100.0100, L505.7010, L500.4050 ####[facility] [address] [place], [address] MCHC (RBC) [Mass/Vol] 31.6 g/dL Low 32-36 [facility] Comment on above: Performed By: #### L 501.6710, L501.9520, L500.4100, L4600.0100, L3100.5475, L101.9900, L100.0100, L505.7010, L500.4050 ####[facility] [address] [place], [address] MCV (RBC) [Entitic vol] 94.0 fL Normal 81-99 [facility] Comment on above: Performed By: #### L 501.6710, L501.9520, L500.4100, L4600.0100, L3100.5475, L101.9900, L100.0100, L505.7010, L500.4050 ####[facility] [address] [place], [address] Monocytes/100 WBC (Bld) 8.5 % Normal 0-10 [facility] Comment on above: Performed By: #### L 501.6710, L501.9520, L500.4100, L4600.0100, L3100.5475, L101.9900, L100.0100, L505.7010, L500.4050 ####[facility] [address] [place], [address] Neutrophils/100 WBC (Bld) 58.1 % Normal 47-70 [facility] Comment on above: Performed By: #### L 501.6710, L501.9520, L500.4100, L4600.0100, L3100.5475, L101.9900, L100.0100, L505.7010, L500.4050 ####[facility] [address] [place], [address] Nucleated RBC (Bld) [#/Vol] 0 10*3/uL Normal 0-5 [facility] Comment on above: Performed By: #### L 501.6710, L501.9520, L500.4100, L4600.0100, L3100.5475, L101.9900, L100.0100, L505.7010, L500.4050 ####[facility] [address] [place], [address] Platelet mean volume (Bld) [Entitic vol] 11.0 fL Normal 6.2-12.0 [facility] Comment on above: Performed By: #### L 501.6710, L501.9520, L500.4100, L4600.0100, L3100.5475, L101.9900, L100.0100, L505.7010, L500.4050 ####[facility] [address] [place], [place], [phone] Platelets (Bld) [#/Vol] 282 10*3/uL Normal 150-450 [facility] Comment on above: Performed By: #### L 501.6710, L501.9520, L500.4100, L4600.0100, L3100.5475, L101.9900, L100.0100, L505.7010, L500.4050 ####[facility] [address] [place], [place], [phone]) RBC (Bld) [#/Vol] 4.31 10*6/uL Normal 4.2-5.4 [facility] Comment on above: Performed By: #### L 501.6710, L501.9520, L500.4100, L4600.0100, L3100.5475, L101.9900, L100.0100, L505.7010, L500.4050 ####[facility] [address] [place], [address] RDW SD 46.7 fl High 35.1-43.9 [facility] Comment on above: Performed By: #### L 501.6710, L501.9520, L500.4100, L4600.0100, L3100.5475, L101.9900, L100.0100, L505.7010, L500.4050 ####[facility] [address] [place], [address] WBC (Bld) [#/Vol] 6.6 10*3/uL Normal 4.4-11.0 [facility] Comment on above: Performed By: #### L 501.6710, L501.9520, L500.4100, L4600.0100, L3100.5475, L101.9900, L100.0100, L505.7010, L500.4050 ####[facility] [address] [facility] [place], [address] CRPon 10-02-2024 C-REACTIVE PROT 20.30 mg/L High 0.0-3.0 [facility] Comment on above: Performed By: #### L 501.6710, L501.9520, L500.4100, L4600.0100, L3100.5475, L101.9900, L100.0100, L505.7010, L500.4050 ####[facility] [address] [facility]. [place], [place], [phone] CRP [Mass/Vol]Ordered By: Miguel De on 10-02-2024 C-Reactive Protein Extended Range 20.30 mg/L High 0.0-3.0 [facility] Calculated very low density lipoprotein (VLDL) cholesterol measurementOrdered By: Susanna De on 10-02-2024 Calculated very low density lipoprotein (VLDL) cholesterol measurement 33 mg/dL [facility] VLDL Cholesterol 33 mg/dL [facility] Carbon dioxide measurementOr dered By: Susanna De on 10-02-2024 CO2 [Moles/Vol] 24.7 mmol/L 22.0-29.0 [facility] Chloride measurementOrdered By: Susanna De on 02-26-2025 Chloride [Moles/Vol] 102 mmol/L 96-108 [facility] Comprehensive Metabolic Prof ilon 10-02-2024 Albumin [Mass/Vol] 4.5 g/dL Normal 3.5-5.0 [facility] Comment on above: Performed By: #### L 501.6710, L501.9520, L500.4100, L4600.0100, L3100.5475, L101.9900, L100.0100, L505.7010, L500.4050 ####[facility] [address] [place], [address] Albumin/Globulin [Mass ratio] 1.7 {ratio} Normal 0.9-2.4 [facility] Comment on above: Performed By: #### L 501.6710, L501.9520, L500.4100, L4600.0100, L3100.5475, L101.9900, L100.0100, L505.7010, L500.4050 ####[facility] [address] [place], [address] ALK PHOS 88 U/L Normal 35-104 [facility] Comment on above: Performed By: #### L 501.6710, L501.9520, L500.4100, L4600.0100, L3100.5475, L101.9900, L100.0100, L505.7010, L500.4050 ####[facility] [address] [place], [address] ALT [Catalytic activity/Vol] 9 U/L Normal <=34 [facility] Comment on above: Performed By: #### L 501.6710, L501.9520, L500.4100, L4600.0100, L3100.5475, L101.9900, L100.0100, L505.7010, L500.4050 ####[facility] [address] [place], [address] Anion gap [Moles/Vol] 12 mmol/L Normal 5-15 [facility] Comment on above: Performed By: #### L 501.6710, L501.9520, L500.4100, L4600.0100, L3100.5475, L101.9900, L100.0100, L505.7010, L500.4050 ####[facility] [address] [place], [address] AST [Catalytic activity/Vol] 21 U/L Normal <=31 [facility] Comment on above: Performed By: #### L 501.6710, L501.9520, L500.4100, L4600.0100, L3100.5475, L101.9900, L100.0100, L505.7010, L500.4050 ####[facility] [address] [place], [address] Bilirubin [Mass/Vol] 1.26 mg/dL Normal 0.00-1.30 [facility] Comment on above: Performed By: #### L 501.6710, L501.9520, L500.4100, L4600.0100, L3100.5475, L101.9900, L100.0100, L505.7010, L500.4050 ####[facility] [address] [place], [address] BUN/CRE 30.2 RATIO High 10-20 [facility] Comment on above: Performed By: #### L 501.6710, L501.9520, L500.4100, L4600.0100, L3100.5475, L101.9900, L100.0100, L505.7010, L500.4050 ####[facility] [address] [place], [address] Calcium [Mass/Vol] 9.5 mg/dL Normal 7.6-11.0 [facility] Comment on above: Performed By: #### L 501.6710, L501.9520, L500.4100, L4600.0100, L3100.5475, L101.9900, L100.0100, L505.7010, L500.4050 ####[facility] [address] [place], [address] Chloride [Moles/Vol] 102 mmol/L Normal 96-108 [facility] Comment on above: Performed By: #### L 501.6710, L501.9520, L500.4100, L4600.0100, L3100.5475, L101.9900, L100.0100, L505.7010, L500.4050 ####[facility] [address] [place], [place], [phone] CO2 [Moles/Vol] 24.7 mmol/L Normal 22.0-29.0 [facility] Comment on above: Performed By: #### L 501.6710, L501.9520, L500.4100, L4600.0100, L3100.5475, L101.9900, L100.0100, L505.7010, L500.4050 ####[facility] [address] [place], [place], [phone](553) Creatinine [Mass/Vol] 0.6 mg/dL Normal 0.6-1.0 [facility] Comment on above: Performed By: #### L 501.6710, L501.9520, L500.4100, L4600.0100, L3100.5475, L101.9900, L100.0100, L505.7010, L500.4050 ####[facility] [address] [place], [address](592) GFR/1.73 sq M.predicted among non-blacks MDRD (S/P/Bld) [Vol rate/Area] 103 mL/min/{1.73_m2} Normal >60 [facility] Comment on above: Result Comment: mL/m in/1.73m2 CKD-EPI Creatinine Equation (2020) Performed By: #### L 501.6710, L501.9520, L500.4100, L4600.0100, L3100.5475, L101.9900, L100.0100, L505.7010, L500.4050 ####[facility] [address] [place], [address] Globulin (S) [Mass/Vol] 2.6 g/dL Normal 2.2-4.2 [facility] Comment on above: Performed By: #### L 501.6710, L501.9520, L500.4100, L4600.0100, L3100.5475, L101.9900, L100.0100, L505.7010, L500.4050 ####[facility] [address] [place], [address] Glucose [Mass/Vol] 90 mg/dL Normal 70-99 [facility] Comment on above: Performed By: #### L 501.6710, L501.9520, L500.4100, L4600.0100, L3100.5475, L101.9900, L100.0100, L505.7010, L500.4050 ####[facility] [address] [place], [address] Potassium [Moles/Vol] 4.1 mmol/L Normal 3.3-5.1 [facility] Comment on above: Performed By: #### L 501.6710, L501.9520, L500.4100, L4600.0100, L3100.5475, L101.9900, L100.0100, L505.7010, L500.4050 ####[facility] [address] [place], [address] Sodium [Moles/Vol] 139 mmol/L Normal 133-145 [facility] Comment on above: Performed By: #### L 501.6710, L501.9520, L500.4100, L4600.0100, L3100.5475, L101.9900, L100.0100, L505.7010, L500.4050 ####[facility] [address] [place], [address] T PROT 7.1 g/dL Normal 5.9-8.4 [facility] Comment on above: Performed By: #### L 501.6710, L501.9520, L500.4100, L4600.0100, L3100.5475, L101.9900, L100.0100, L505.7010, L500.4050 ####[facility] [address] [place], [address] Urea nitrogen [Mass/Vol] 19 mg/dL Normal 4-19 [facility] Comment on above: Performed By: #### L 501.6710, L501.9520, L500.4100, L4600.0100, L3100.5475, L101.9900, L100.0100, L505.7010, L500.4050 ####[facility] [address] [place], [address] Cyclic citrullinated peptide IgG QnOrdered By: Susanna De on 10-02-2024 Cyclic Citrullinated Peptide IgG Ab 4 units 0-19 [facility] Comment on above: Negative <20 Weak po sitive 20 - 39 Moderate positive 40 - 59 Strong positive >59Performed at: [facility] [address] [id number] Director: Gómez Aragon PhD, Phone: [phone] Eosinophil percentageOrdered By: Susanna De on 10-02-2024 Eosinophils/100 WBC (Bld) 3.3 % 0-5 [facility] Erythrocyte Sed Rateon 10-02 SED RATE 17 mm/hr Normal 0-30 [facility] Comment on above: Performed By: #### L 501.6710, L501.9520, L500.4100, L4600.0100, L3100.5475, L101.9900, L100.0100, L505.7010, L500.4050 ####[facility] [address] [place], [address] Erythrocyte distribution wid th ratioOrdered By: Susanna De on 10-02-2024 Erythrocyte distribution width (RBC) [Ratio] 13.4 % 11.6-14.6 [facility] Erythrocyte distribution wid th standard deviationOrdered By: Susanna De on 10-02-2024 Erythrocyte distribution width (RBC) [Entitic vol] 46.7 fL High 35.1-43.9 [facility] Erythrocyte distribution width (RBC) [Ratio] 46.7 fl High 35.1-43.9 [facility] Erythrocyte sedimentation ra teOrdered By: Susanna De on 10-02-2024 ESR (Bld) [Velocity] 17 mm/h 0-30 [facility] GFR/1.73 sq M.predicted pebbles g non-blacks MDRD (S/P/Bld) [Vol rate/Area]Ordered By: Susanna De on 10-02-2024 Estimated GFR (MDRD) Non-Af Amer 103 >60 [facility] Comment on above: mL/min/1.73m2 CKD-EP I Creatinine Equation (2020) Glomerular filtration rate ( GFR) estimation/1.73 sq m using serum, plasma, or whole bOrdered By: Susanna De on 10-02-2024 GFR/1.73 sq M.predicted among non-blacks MDRD (S/P/Bld) [Vol rate/Area] 103 mL/min/{1.73_m2} >60 [facility] Comment on above: mL/min/1.73m2 CKD-EP I Creatinine Equation (2020) Hematocrit Auto (Bld) [Volum e fraction]Ordered By: Susanna De on 10-02-2024 Hematocrit (Bld) [Volume fraction] 40.5 % 37-47 [facility] Hemoglobin measurementOrdere d By: Susanna De on 10-02-2024 Hemoglobin (Bld) [Mass/Vol] 12.8 g/dL 12.0-15.0 [facility] Immature granulocytes/100 WB C Auto (Bld)Ordered By: Susanna De on 10-02-2024 Immature granulocytes/100 WBC (Bld) 0.300 % 0.0-0.9 [facility] Comment on above: IG% - Immature Granu locytes (promyelocytes, myelocytes and metamyelocytes) > 1% indicates that a LEFT SHIFT is Present. LDL calc ser/plasOrdered By: Susanna De on 10-02-2024 Cholesterol in LDL [Mass/Vol] 111 mg/dL [facility] Comment on above: Ywvmbxtpyj=003-516 m g/dL & Higher Vhdp=269 mg/dL or greater LDL Cholesterol, Calculated 111 mg/dL [facility] Comment on above: Otrjvyxgml=451-439 m g/dL & Higher Whmc=302 mg/dL or greater Laboratory - Chemistry and C hemistry - challengeOrdered By: Susanna De on 10-02-2024 AST [Catalytic activity/Vol] 21 U/L <32 [facility] Lipid Profileon 10-02-2024 CHOL:HDL 3.89 Normal [facility] Comment on above: Performed By: #### L 501.6710, L501.9520, L500.4100, L4600.0100, L3100.5475, L101.9900, L100.0100, L505.7010, L500.4050 ####[facility] [address] [place], [address] Cholesterol [Mass/Vol] 194 mg/dL Normal <=200 [facility] Comment on above: Result Comment: Chol esterol level, Desirable <200 mg/dL Borderline high cholesterol 200-239 mg/dL High cholesterol >=240 mg/dL Recommendations of the NCEP Adult Treatment Panel for the following risk-cutoff thresholds for the [place] population. Performed By: #### L 501.6710, L501.9520, L500.4100, L4600.0100, L3100.5475, L101.9900, L100.0100, L505.7010, L500.4050 ####[facility] [address] [place], [address] Cholesterol in HDL [Mass/Vol] 50 mg/dL Normal [facility] Comment on above: Result Comment: Cecy onal Cholesterol Education Program (NCEP) guidelines: <40 mg/dL: Low HDL-cholesterol (major risk factor for CHD) >= 60 mg/dL: High HDL-cholesterol (negative risk factor for CHD) HDL-cholesterol is affected by a number of factors, e.g. smoking, exercise, hormones, sex and age. Performed By: #### L 501.6710, L501.9520, L500.4100, L4600.0100, L3100.5475, L101.9900, L100.0100, L505.7010, L500.4050 ####[facility] [address] [place], [address] Cholesterol in LDL [Mass/Vol] 111 mg/dL Normal [facility] Comment on above: Result Comment: Bord yzhrcl=437-079 mg/dL Higher Npfl=941 mg/dL or greater Performed By: #### L 501.6710, L501.9520, L500.4100, L4600.0100, L3100.5475, L101.9900, L100.0100, L505.7010, L500.4050 ####[facility] [address] [place], [address] Cholesterol in VLDL [Mass/Vol] 33 mg/dL Normal 5-40 [facility] Comment on above: Performed By: #### L 501.6710, L501.9520, L500.4100, L4600.0100, L3100.5475, L101.9900, L100.0100, L505.7010, L500.4050 ####[facility] [address] [place], [address] Triglyceride [Mass/Vol] 167 mg/dL Normal [facility] Comment on above: Result Comment: The drugs N-Acetylcysteine and Metamizole may falsely depress this assay. Normal range: <150 mg/dL Borderline High: 150-199 mg/dL High: 200-499 mg/dL Very High: >500 mg/dL Performed By: #### L 501.6710, L501.9520, L500.4100, L4600.0100, L3100.5475, L101.9900, L100.0100, L505.7010, L500.4050 ####[facility] [address] [place], [address] Lymphocytes Auto (Unsp spec) [#/Vol]Ordered By: Susanna De on 10-02-2024 Lymphocytes (Bld) [#/Vol] 1.92 10*3/uL 0.83-4.51 [facility] Lymphocytes/100 WBC Auto (Un sp spec)Ordered By: Susanna De on 10-02-2024 Lymphocytes/100 WBC (Bld) 29.2 % 19-41 [facility] MCV (mean corpuscular volume ) determinationOrdered By: Susanna De on 10-02-2024 MCV (RBC) [Entitic vol] 94.0 fL 81-99 [facility] Mean corpuscular hemoglobin (MCH) determinationOrdered By: Susanna De on 10-02-2024 MCH (RBC) [Entitic mass] 29.7 pg 27.0-32.0 [facility] Mean corpuscular hemoglobin concentration (MCHC) determinationOrdered By: Susanna De on 10-02-2024 MCHC (RBC) [Mass/Vol] 31.6 g/dL Low 32-36 [facility] Mean platelet volume determi nationOrdered By: Susanna De on 10-02-2024 Platelet mean volume (Bld) [Entitic vol] 11.0 fL 6.2-12.0 [facility] Monocyte percentageOrdered B y: Susanna De on 10-02-2024 Monocytes/100 WBC (Bld) 8.5 % 0-10 [facility] Neutrophil percentageOrdered By: Susanna De on 10-02-2024 Neutrophils/100 WBC (Bld) 58.1 % 47-70 [facility] Nucleated red blood cell per centageOrdered By: Susanna De on 10-02-2024 Nucleated RBC/100 WBC (Bld) [Ratio] 0 % 0-5 [facility] Platelet countOrdered By: Miguel De on 10-02-2024 Platelets (Bld) [#/Vol] 282 10*3/uL 150-450 [facility] RBC Auto (Bld) [#/Vol]Ordere d By: Susanna De on 10-02-2024 RBC (Bld) [#/Vol] 4.31 10*6/uL 4.2-5.4 [facility] Rheumatoid Factoron 10-02-19 25 RHEUMATOID FAC < 10.0 Normal <15 [facility] Comment on above: Performed By: #### L 501.6710, L501.9520, L500.4100, L4600.0100, L3100.5475, L101.9900, L100.0100, L505.7010, L500.4050 ####[facility] [id number] [place], [place], [id number] Rheumatoid factor Ql (S)Orde red By: Susanna De on 10-02-2024 Rheumatoid Factor < 10.0 IU/mL <15 [facility] Screening total cholesterol/ high density lipoprotein (HDL) cholesterol ratioOrdered By: Susanna De on 10-02-2024 Cholesterol.total/Shyanne sterol in HDL [Mass ratio] 3.89 {ratio} [facility] Serum creatinine measurement (mass/volume)Ordered By: Susanna De on 10-02-2024 Creatinine [Mass/Vol] 0.6 mg/dL 0.70-1.20 [facility] Serum globulin measurementOr dered By: Susanna De on 10-02-2024 Globulin (S) [Mass/Vol] 2.6 g/dL 2.2-4.2 [facility] Serum glucose measurement (m ass/volume)Ordered By: Susanna De on 10-02-2024 Glucose [Mass/Vol] 90 mg/dL 70-99 [facility] Serum or plasma C reactive p rotein measurement (mass/volume)Ordered By: Susanna De on 10-02-2024 CRP [Mass/Vol] 20.30 mg/L High 0.0-3.0 [facility] Serum or plasma alanine jorge otransferase (ALT) measurementOrdered By: Susanna De on 10-02-2024 ALT [Catalytic activity/Vol] 9 U/L <35 [facility] Serum or plasma albumin torres urement (mass/volume)Ordered By: Susanna De on 10-02-2024 Albumin [Mass/Vol] 4.5 g/dL 3.5-5.0 [facility] Serum or plasma albumin/glob ulin mass ratioOrdered By: Susanna De on 10-02-2024 Albumin/Globulin [Mass ratio] 1.7 {ratio} 0.9-2.4 [facility] Serum or plasma alkaline dieter sphatase measurementOrdered By: Susanna De on 10-02-2024 ALP [Catalytic activity/Vol] 88 U/L 35-104 [facility] Serum or plasma anion gap de termination (moles/volume)Ordered By: Susanna De on 10-02-2024 Anion gap [Moles/Vol] 12 mmol/L 5-15 [facility] Serum or plasma calcium torres urement (mass/volume)Ordered By: Susanna De on 10-02-2024 Calcium [Mass/Vol] 9.5 mg/dL 7.6-11.0 [facility] Serum or plasma cholesterol in HDL measurement (mass/volume)Ordered By: Susanna De on 10-02-2024 Cholesterol in HDL [Mass/Vol] 50 mg/dL >40 [facility] Comment on above: National Cholesterol Education Program (NCEP) guidelines:<40 mg/dL: Low HDL-cholesterol (major risk factor for CHD)>= 60 mg/dL: High HDL-cholesterol (negative risk factor for CHD)HDL-cholesterol is affected by a number of factors, e.g. smoking, exercise, hormones, sex and age. Serum or plasma cholesterol measurement (mass/volume)Ordered By: Susanna De on 10-02-2024 Cholesterol [Mass/Vol] 194 mg/dL <201 [facility] Comment on above: Cholesterol level, D esirable <200 mg/dLBorderline high cholesterol 200-239 mg/dLHigh cholesterol >=240 mg/dLRecommendations of the NCEP Adult Treatment Panel for the following risk-cutoff thresholds for the [place] population. Serum or plasma cyclic citru llinated peptide IgG antibody assay (units/volume)Ordered By: Susanna De on 10-02-2024 Cyclic citrullinated peptide IgG Qn 4 units 0-19 [facility] Comment on above: Negative <20 Weak po sitive 20 - 39 Moderate positive 40 - 59 Strong positive >59Performed at: [facility] [address] [id number] Director: Gómez Aragon PhD, Phone: [phone] Serum or plasma potassium me asurementOrdered By: Susanna De on 10-02-2024 Potassium [Moles/Vol] 4.1 mmol/L 3.3-5.1 [facility] Serum or plasma sodium measu rement (moles/volume)Ordered By: Susanna De on 10-02-2024 Sodium [Moles/Vol] 139 mmol/L 133-145 [facility] Serum or plasma urea nitroge n measurement (mass/volume)Ordered By: Susanna De on 10-02-2024 Urea nitrogen [Mass/Vol] 19 mg/dL 4-19 [facility] Serum rheumatoid factor dete ctionOrdered By: Susanna De on 10-02-2024 Rheumatoid factor Ql (S) < 10.0 IU/mL <15 [facility] TSH DL <= 0.005 mIU/L QnOrde red By: Susanna De on 10-02-2024 Thyroid Stimulating Hormone (TSH) 0.498 uIU/mL 0.300-4.200 [facility] TSH Qn 0.498 uIU/mL 0.300-4.200 [facility] Thyroid Stim Hormone (TSH)on 10-02-2024 TSH 0.498 uIU/mL Normal 0.300-4.200 [facility] Comment on above: Performed By: #### L 501.6710, L501.9520, L500.4100, L4600.0100, L3100.5475, L101.9900, L100.0100, L505.7010, L500.4050 ####[facility] [id number] [place], [address] Total proteinOrdered By: Lola De on 10-02-2024 Protein [Mass/Vol] 7.1 g/dL 5.9-8.4 [facility] Triglycerides measurementOrd ered By: Susanna De on 10-02-2024 Triglyceride [Mass/Vol] 167 mg/dL <199 [facility] Comment on above: The drugs N-Acetylcy steine and Metamizole may falsely depress this assay. Normal range: <150 mg/dLBorderline High: 150-199 mg/dLHigh: 200-499 mg/dLVery High: >500 mg/dL White blood cell (WBC) count Ordered By: Susanna De on 10-02-2024 WBC (Bld) [#/Vol] 6.6 10*3/uL 4.4-11.0 [facility] CBC W/Diff, Automatedon 03-08 Absolute Lymph 2.75 X10 3/uL Normal 0.83-4.51 [facility] Comment on above: Performed By: #### L 100.0100, L500.4050, L500.4100 #### [facility] [address] [place], [address] Absolute Neut 3.9 X10 3/uL Normal 2.0-7.7 [facility] Comment on above: Performed By: #### L 100.0100, L500.4050, L500.4100 #### [facility] [address] [place], [address] Basophils/100 WBC (Bld) 0.8 % Normal 0-1 [facility] Comment on above: Performed By: #### L 100.0100, L500.4050, L500.4100 #### [facility] [address] [place], [address] Eosinophils/100 WBC (Bld) 4.0 % Normal 0-5 [facility] Comment on above: Performed By: #### L 100.0100, L500.4050, L500.4100 #### [facility] [address] [place], [address] Erythrocyte distribution width (RBC) [Ratio] 13.7 % Normal 11.6-14.6 [facility] Comment on above: Performed By: #### L 100.0100, L500.4050, L500.4100 #### [facility] [address] [place], [address] Hematocrit (Bld) [Volume fraction] 40.5 % Normal 37-47 [facility] Comment on above: Performed By: #### L 100.0100, L500.4050, L500.4100 #### [facility] [address] [place], [address] Hemoglobin (Bld) [Mass/Vol] 12.9 g/dL Normal 12.0-15.0 [facility] Comment on above: Performed By: #### L 100.0100, L500.4050, L500.4100 #### [facility] [address] [place], [address] IG% 0.300 Normal 0.0-0.9 [facility] Comment on above: Result Comment: IG% - Immature Granulocytes (promyelocytes, myelocytes and metamyelocytes) > 1% indicates that a LEFT SHIFT is Present. Performed By: #### L 100.0100, L500.4050, L500.4100 #### [facility] [address] [place], [address] Lymphocytes/100 WBC (Bld) 35.7 % Normal 19-41 [facility] Comment on above: Performed By: #### L 100.0100, L500.4050, L500.4100 #### [facility] [address] [place], [address] MCH (RBC) [Entitic mass] 29.9 pg Normal 27.0-32.0 [facility] Comment on above: Performed By: #### L 100.0100, L500.4050, L500.4100 #### [facility] [address] [place], [address] MCHC (RBC) [Mass/Vol] 31.9 g/dL Low 32-36 [facility] Comment on above: Performed By: #### L 100.0100, L500.4050, L500.4100 #### [facility] [address] [place], [address] MCV (RBC) [Entitic vol] 93.8 fL Normal 81-99 [facility] Comment on above: Performed By: #### L 100.0100, L500.4050, L500.4100 #### [facility] [address] [place], [address] Monocytes/100 WBC (Bld) 8.4 % Normal 0-10 [facility] Comment on above: Performed By: #### L 100.0100, L500.4050, L500.4100 #### [facility] [address] [place], [address] Neutrophils/100 WBC (Bld) 50.8 % Normal 47-70 [facility] Comment on above: Performed By: #### L 100.0100, L500.4050, L500.4100 #### [facility] [address] [place], [address] Nucleated RBC (Bld) [#/Vol] 0 10*3/uL Normal 0-5 [facility] Comment on above: Performed By: #### L 100.0100, L500.4050, L500.4100 #### [facility] [address] [place], [address] Platelet mean volume (Bld) [Entitic vol] 10.7 fL Normal 6.2-12.0 [facility] Comment on above: Performed By: #### L 100.0100, L500.4050, L500.4100 #### [facility] [address] [place], [address] Platelets (Bld) [#/Vol] 273 10*3/uL Normal 150-450 [facility] Comment on above: Performed By: #### L 100.0100, L500.4050, L500.4100 #### [facility] [address] [place], [address] RBC (Bld) [#/Vol] 4.32 10*6/uL Normal 4.2-5.4 [facility] Comment on above: Performed By: #### L 100.0100, L500.4050, L500.4100 #### [facility] [address] [place], [address] RDW SD 47.1 fl High 35.1-43.9 [facility] Comment on above: Performed By: #### L 100.0100, L500.4050, L500.4100 #### [facility] [address] [place], [address] WBC (Bld) [#/Vol] 7.7 10*3/uL Normal 4.4-11.0 [facility] Comment on above: Performed By: #### L 100.0100, L500.4050, L500.4100 #### [facility] [address] [place], [address] Comprehensive Metabolic Prof [facility] 03-28-2024 Albumin [Mass/Vol] 3.6 g/dL Normal 3.2-5.0 [facility] Comment on above: Performed By: #### L 100.0100, L500.4050, L500.4100 #### [facility] [address] [place], [address] Albumin/Globulin [Mass ratio] 0.9 {ratio} Normal 0.9-2.4 [facility] Comment on above: Performed By: #### L 100.0100, L500.4050, L500.4100 #### [facility] [address] [place], [address] ALK P 86 U/L Normal 45-117 [facility] Comment on above: Performed By: #### L 100.0100, L500.4050, L500.4100 #### [facility] [address] [place], [address] ALT [Catalytic activity/Vol] 18 U/L Normal 13-56 [facility] Comment on above: Performed By: #### L 100.0100, L500.4050, L500.4100 #### [facility] [address] [place], [address] AST [Catalytic activity/Vol] 16 U/L Normal 15-37 [facility] Comment on above: Performed By: #### L 100.0100, L500.4050, L500.4100 #### [facility] [address] [place], [address] Bilirubin [Mass/Vol] 1.20 mg/dL High 0.20-1.00 [facility] Comment on above: Result Comment: For patients on eltrombopag therapy, use of Dimension Odon TBIL is not recommended. Performed By: #### L 100.0100, L500.4050, L500.4100 #### [facility] [address] [place], [address] BUN/CRE 20.9 RATIO High 10-20 [facility] Comment on above: Performed By: #### L 100.0100, L500.4050, L500.4100 #### [facility] [address] [place], [address] CA,Total 9.4 mg/dL Normal 8.5-10.1 [facility] Comment on above: Performed By: #### L 100.0100, L500.4050, L500.4100 #### [facility] [address] [place], [address] Chloride [Moles/Vol] 103 mmol/L Normal 98-107 [facility] Comment on above: Performed By: #### L 100.0100, L500.4050, L500.4100 #### [facility] [address] [place], [address] CO2 [Moles/Vol] 30.0 mmol/L Normal 21.0-32.0 [facility] Comment on above: Performed By: #### L 100.0100, L500.4050, L500.4100 #### [facility] [address] [place], [address] Creatinine [Mass/Vol] 0.76 mg/dL Normal 0.55-1.02 [facility] Comment on above: Result Comment: The validity of the calculated GFR GFRAA in patients over 70 years has not been determined. Clinical correlation is essential. Performed By: #### L 100.0100, L500.4050, L500.4100 #### [facility] [address] [place], [address] EST GFR - AA 100 mL/min Normal >60 [facility] Comment on above: Result Comment: Afri can [place] GFR Calc Performed By: #### L 100.0100, L500.4050, L500.4100 #### [facility] [address] [place], [address] GAP 5 Normal 5-15 [facility] Comment on above: Performed By: #### L 100.0100, L500.4050, L500.4100 #### [facility] [address] [place], [address] GFR/1.73 sq M.predicted among non-blacks MDRD (S/P/Bld) [Vol rate/Area] 83 mL/min/{1.73_m2} Normal >60 [facility] Comment on above: Result Comment: Non- GFR Calc Performed By: #### L 100.0100, L500.4050, L500.4100 #### [facility] [address] [place], [address] Globulin (S) [Mass/Vol] 3.8 g/dL Normal 2.2-4.2 [facility] Comment on above: Performed By: #### L 100.0100, L500.4050, L500.4100 #### [facility] [address] [place], [address] Glucose [Mass/Vol] 96 mg/dL Normal 74-106 [facility] Comment on above: Performed By: #### L 100.0100, L500.4050, L500.4100 #### [facility] [address] [place], [address] Potassium [Moles/Vol] 4.1 mmol/L Normal 3.5-5.1 [facility] Comment on above: Performed By: #### L 100.0100, L500.4050, L500.4100 #### [facility] [address] [place], [address] Sodium [Moles/Vol] 138 mmol/L Normal 136-145 [facility] Comment on above: Performed By: #### L 100.0100, L500.4050, L500.4100 #### [facility] [address] [place], [address] T PROT 7.4 g/dL Normal 6.4-8.2 [facility] Comment on above: Performed By: #### L 100.0100, L500.4050, L500.4100 #### [facility] [address] [place], [address] Urea nitrogen [Mass/Vol] 16 mg/dL Normal 7-18 [facility] Comment on above: Performed By: #### L 100.0100, L500.4050, L500.4100 #### [facility] [address] [place], [address] Lipid Profileon 03-28-2024 Cholesterol [Mass/Vol] 215 mg/dL High 200 [facility] Comment on above: Result Comment: <200 mg/dL Desirable 200-240 mg/dL Borderline >240 mg/dL High Risk Performed By: #### L 100.0100, L500.4050, L500.4100 #### [facility] [address] [place], [address] Cholesterol in HDL [Mass/Vol] 57 mg/dL Normal [facility] Comment on above: Result Comment: The drugs N-Acetylcysteine and Metamizole may falsely depress this assay. Reference Range HDL <40 mg/dL Low HDL Cholesterol HDL >or= 60 mg/dL High HDL Cholesterol Performed By: #### L 100.0100, L500.4050, L500.4100 #### [facility] [address] [place], [address] Cholesterol in LDL [Mass/Vol] 125 mg/dL Normal 0-130 [facility] Comment on above: Performed By: #### L 100.0100, L500.4050, L500.4100 #### [facility] [address] [place], [address] Cholesterol in VLDL [Mass/Vol] 33 mg/dL Normal 5-40 [facility] Comment on above: Performed By: #### L 100.0100, L500.4050, L500.4100 #### [facility] [address] [place], [address] Triglyceride [Mass/Vol] 165 mg/dL Normal [facility] Comment on above: Result Comment: The drugs N-Acetylcysteine and Metamizole may falsely depress this assay. Serum Triglycerides Reference Interval Normal <150 mg/dL Borderline high 150 - 199 mg/dL High 200 - 499 mg/dL Very High > or = 500 mg/dL Performed By: #### L 100.0100, L500.4050, L500.4100 #### [facility] [address] [place], [address] T4 Free Directon 03-28-2024 T4 FREE DIRECT 1.21 ng/dL Normal 0.76-1.46 [facility] Comment on above: Performed By: #### L 506.0400, L501.9520 #### [facility] [address] [place], [address] Thyroid Stim Hormone (TSH)on 03-28-2024 TSH 6.050 uIU/mL High 0.358-3.740 [facility] Comment on above: Performed By: #### L 506.0400, L501.0120 #### [facility] [address] [place], [address] Cardiology Visit Reporton Cardiology Visit Report [facility] [address] [place] [address] OFFICE VISIT Date of Service: 03/04/24 MR#: [id number] Acct: [id number] Name: SHAR DANIELS Rep #: [id number] : 1965 Provider: SHAGGY self Age/Sex: 58/F Location: [facility] Status: Signed HPI HPI History of Present Illness Details: Shar Daniels is a 58-year-old white female who presents today for outpatient cardiovascular follow- up of her history of a non-CAD related/peripartum related cardiomyopathy with subsequent development of CAD status post LAD PCI/BLANCO (2018 with a 3.0x28 Promus drug-eluting stent), hyperlipidemia, and thyroid disease. She denies chest, arm, jaw, or neck discomfort. She denies palpitations. She acknowledges occasional bilateral lower extremity edema. She denies claudication. She denies shortness of breath with activity, shortness of breath at rest, orthopnea, or PND. She denies chronic cough. She denies significant, sudden weight gain. She denies lightheadedness, dizziness, near-syncope, or syncope. She denies blood in urine, blood in stool, or epistaxis. He denies fever with chills. She denies myalgia. She denies fatigue. Her exercise level has remained stable. Intake Vital Signs 12/15/23 10:08 03/04/24 11:31 Height 5 ft 2 in 5 ft 2 in Weight: 192 lb 195 lb BMI 35.1 35.6 BP 129/82 H 167/88 H Blood Pressure Location Rt brachial Lt brachial Position Sitting Sitting Respiration 16 16 Pulse 61 53 L Pulse Source Monitor NIBP Temp 96.3 F L Pulse Oximetry (%) 96 Oxygen Delivery Method room air Intake Visit Reasons: 1 Y FU Supervisor Type Bar And Segment Required: No Is patient in pain?: No Allergies losartan Allergy (Intermediate, Verified 03/04/24 11:36) muscles locked up adhesive Allergy (Mild, Verified 03/04/24 11:36) Rash Sulfa (Sulfonamide Antibiotics) Allergy (Verified 03/04/24 11:36) Hives lisinopril Adverse Reaction (Severe, Verified 03/04/24 11:36) cough rosuvastatin (From Crestor) Adverse Reaction (Severe, Verified 03/04/24 11:36) Lymphadenopathy, edema, hyperthyroid atorvastatin (From Lipitor) Adverse Reaction (Intermediate, Verified 03/04/24 11:36) Muscle aches/myalgias Medications ???Medication ???Instructions ???Recorded ???Confirmed ???Type albuterol sulfate 90 mcg/actuation 1 - 2 puff inhalation Q6H PRN 11/29/22 03/04/24 History aerosol inhaler SHORTNESS OF BREATH aspirin 81 mg tablet,delayed 81 mg PO DAILY HEART HEALTH 11/29/22 03/04/24 History release (Adult Aspirin Regimen) ferrous sulfate 325 mg (65 mg 325 mg PO DAILY SUPPLEMENT 01/27/23 03/04/24 History iron) tablet calcium 600 mg-D3 800 unit-mag11 1 tab PO TID 12/15/23 03/04/24 History 50 gq-smwr-djedeo-khoa-s.b orat tablet (Caltrate 600-D Plus Minerals) escitalopram oxalate 10 mg tablet 10 mg PO DAILY DEPRESSION 12/15/23 03/04/24 History multivitamin with iron 1 tab PO DAILY 12/15/23 03/04/24 History levothyroxine 125 mcg tablet 125 mcg PO DAILY #90 tabs 02/22/24 03/04/24 Rx metoprolol tartrate 25 mg tablet 25 mg PO DAILY BLOOD PRESSURE #90 03/04/24 03/04/24 Rx tabs Ejection fraction %: 53 Have you fallen in the past year?: No PFSH Medical History (Reviewed 03/04/24 @ 11:47 by Nikhil Goode [employer], [employer]ATOR-C) Type 2 diabetes mellitus Wears glasses Post-menopausal Anxiety History of steroid therapy Thyroid disease Anemia Migraine headache Syncope Shortness of breath on exertion History of edema History of echocardiogram Normal stress echocardiogram Hypertension Cardiology follow-up encounter History of irregular heartbeat Colon cancer screening Preventative health care Essential hypertension Sinusitis Arthritis of left temporomandibular joint Anxiety and depression Otitis media Obesity Hyperglycemia Morbid obesity Hypertension Arthritis Thyroid disorder H/O bronchitis Asthma Pure hypercholesterolemia Atherosclerosis of [place] coronary artery of [place] heart without angina pectoris Shortness of breath Abnormal echocardiogram (03/23/18) Nonrheumatic mitral (valve) insufficiency Nonrheumatic tricuspid (valve) insufficiency Nonischemic cardiomyopathy Left ventricular dysfunction Vitiligo Hypothyroidism Surgical History (Reviewed 03/04/24 @ 11:47 by Nikhil Goode [employer]PERATOR, [employer]PERATOR-C) H/O gastric sleeve History of cardiac catheterization Hx of laparoscopy History of colonoscopy History of laparoscopy History of left heart catheterization Stented coronary artery (04/19/18) History of cholecystectomy Family History (Reviewed 03/04/24 @ 11:47 by Nikhil Goode [employer]ATOR, [employer]PERATOR-C) Father CAD (coronary artery disease) Diabetes Dementia Heart disease Mother CAD (coronary artery disease) Hypertension Thyroid disorder Heart disease Sister Diabetes Type II Thyroid disord (more content not included)... Normal [facility] T4 Free Directon 02-21-2024 T4 FREE DIRECT 0.92 ng/dL Normal 0.76-1.46 [facility] Comment on above: Performed By: #### L 506.0400, L501.9520 #### [facility] [address] [place], [place], [address] Thyroid Stim Hormone (TSH)on 02-21-2024 TSH 11.40 uIU/mL High 0.358-3.74 [facility] Comment on above: Performed By: #### L 506.0400, L501.9520 #### [facility] [address] [place], [place], [id number] 25(OH)D3 [facility] 2023 25-hydroxyvitamin D3 [Mass/Vol] 42.3 ng/mL Normal 31.0-80.0 [facility] Comment on above: Order Comment: Speci men Type: BLOOD SPECIMEN Ordering Facility: [facility] Address: [address] [place] [address] Result Comment: Clas sification of 25 [place] Vitamin D status: Deficiency/Insufficiency: < or = 30 ng/ml. Sufficiency/Optimal Levels: 31-80 ng/mL Toxicity: > 100 ng/mL. Test performed by chemiluminescent immunoassay. Performed By: #### 2 4331-1 #### [facility] CLIA [id number] [address] [place] [address] [place] [id number] [place] [address] [place] #### 3016-3, 05524-6, 2275-4 #### [facility] CLIA [id number] [address] [place] [address] [place] CBC W Auto Differential pane l (Bld)on 09-15-2023 Basophils (Bld) [#/Vol] 0.04 10*3/uL Normal <0.11 [facility] Comment on above: Order Comment: Speci men Type: BLOOD SPECIMEN Ordering Facility: [facility] Address: [address] [place] [address] Performed By: #### 2 4331-1 #### [facility] CLIA [id number] [address] [place] [address] [place] [id number] [place] [address] [place] #### 3016-3, 49959-7, 6-4 #### [facility] CLIA [id number] [address] [place] [address] [place] Basophils/100 WBC (Bld) 0.5 % [facility] on above: Order Comment: Speci men Type: BLOOD SPECIMEN Ordering Facility: [facility] Address: [address] [place] [address] Performed By: #### 2 4331-1 #### [facility] CLIA [id number] [address] [place] [address] [place] [facility] CLIA [id number] [address] [place] [address] [place] #### 3016-3, 84039-4, 2275- #### [facility] CLIA [id number] [address] [place] [address] [place] Differential cell count method Nom (Bld) Auto Normal [facility] Comment on above: Order Comment: Speci men Type: BLOOD SPECIMEN Ordering Facility: [facility] Address: [address] [place] [address] Performed By: #### 2 4331-1 #### [facility] CLIA [id number] [address] [place] [address] [place] [facility] CLIA [id number] [address] [place] [address] [place] #### 3016-3, 99469-5, 2275- #### [facility] CLIA [id number] [address] [place] [address] [place] Eosinophils (Bld) [#/Vol] 0.34 10*3/uL Normal <0.46 [facility] Comment on above: Order Comment: Speci men Type: BLOOD SPECIMEN Ordering Facility: [facility] Address: [address] [place] [address] Performed By: #### 2 4331-1 #### [facility] CLIA [id number] [address] [place] [address] [place] [facility] CLIA [id number] [address] [place] [address] [place] #### 3016-3, 96320-4, 2275-4 #### [facility] CLIA [id number] [address] [place] [address] [place] Eosinophils/100 WBC (Bld) 4.4 % Normal [facility] Comment on above: Order Comment: Speci men Type: BLOOD SPECIMEN Ordering Facility: [facility] Address: [address] [place] [address] Performed By: #### 2 4331-1 #### [facility] CLIA [id number] [address] [place] [address] [place] [facility] CLIA [id number] [address] [place] [address] [place] #### 3016-3, 65605-9, 2275-11 #### [facility] CLIA [id number] [address] [place] [address] [place] Erythrocyte distribution width (RBC) [Ratio] 14.1 % Normal 11.5-15.0 [facility] Comment on above: Order Comment: Speci men Type: BLOOD SPECIMEN Ordering Facility: [facility] Address: [address] [place] [address] Performed By: #### 2 4331-1 #### [facility] CLIA [id number] [address] [place] [address] [place] [facility] CLIA [id number] [address] [place] [address] [place] #### 3016-3, 14872-8, 2275-4 #### [facility] CLIA [id number] [address] [place] [address] [place] Hematocrit (Bld) [Volume fraction] 40.0 % Normal 36.0-46.0 [facility] Comment on above: Order Comment: Speci men Type: BLOOD SPECIMEN Ordering Facility: [facility] Address: [address] [place] [address] Performed By: #### 2 4331-1 #### [facility] CLIA [id number] [address] [place] [address] [place] [facility] CLIA [id number] [address] [place] [address] [place] #### 3016-3, 55541-0, 2275- #### [facility] CLIA [id number] [address] [place] [address] [place] Hemoglobin (Bld) [Mass/Vol] 13.2 g/dL Normal 11.5-15.5 [facility] Comment on above: Order Comment: Speci men Type: BLOOD SPECIMEN Ordering Facility: [facility] Address: [address] [place] [address] Performed By: #### 2 4331-1 #### [facility] CLIA [id number] [address] [place] [address] [place] [facility] CLIA [id number] [address] [place] [address] [place] #### 3016-3, 56490-0, 2275-4 #### [facility] CLIA [id number] [address] [place] [address] [place] Immature granulocytes (Bld) [#/Vol] 0.03 10*3/uL Normal <0.10 [facility] Comment on above: Order Comment: Speci men Type: BLOOD SPECIMEN Ordering Facility: [facility] Address: [address] [place] [address] Performed By: #### 2 4331-1 #### [facility] CLIA [id number] [address] [place] [address] [place] [facility] CLIA [id number] [address] [place] [address] [place] #### 3016-3, 16584-0, 2275-4 #### [facility] CLIA [id number] [address] [place] [address] [place] Immature granulocytes/100 WBC (Bld) 0.4 % Normal [facility] Comment on above: Order Comment: Speci men Type: BLOOD SPECIMEN Ordering Facility: [facility] Address: [address] [place] [address] Performed By: #### 2 4331-1 #### [facility] CLIA [id number] [address] [place] [address] [place] [facility] CLIA [id number] [address] [place] [address] [place] #### 3016-3, 41352-5, 2275-11 #### [facility] CLIA [id number] [address] [place] [address] [place] Lymphocytes (Bld) [#/Vol] 2.32 10*3/uL Normal 1.00-4.00 [facility] Comment on above: Order Comment: Speci men Type: BLOOD SPECIMEN Ordering Facility: [facility] Address: [address] [place] [address] Performed By: #### 2 4331-1 #### [facility] CLIA [id number] [address] [place] [address] [place] [facility] CLIA [id number] [address] [place] [address] [place] #### 3016-3, 16824-0, 2276-4 #### [facility] CLIA [id number] [address] [place], [place] [address] [place] Lymphocytes/100 WBC (Bld) 30.3 % Normal [facility] Comment on above: Order Comment: Speci men Type: BLOOD SPECIMEN Ordering Facility: [facility] Address: [address] [place] [address] Performed By: #### 2 4331-1 #### [facility] CLIA [id number] [address] [place] [address] [place] [facility] CLIA [id number] [address] [place] [address] [place] #### 3016-3, 46417-4, 2275-4 #### [facility] CLIA [id number] [address] [place] [address] [place] MCH (RBC) [Entitic mass] 30.2 pg Normal 26.0-34.0 [facility] Comment on above: Order Comment: Speci men Type: BLOOD SPECIMEN Ordering Facility: [facility] Address: [address] [place] [address] Performed By: #### 2 4331-1 #### [facility] CLIA [id number] [address] [place] [address] [place] [facility] CLIA [id number] [address] [place] [address] [place] #### 3016-3, 01966-1, 2275-4 #### [facility] CLIA [id number] [address] [place] [address] [place] MCHC (RBC) [Mass/Vol] 33.0 g/dL Normal 30.5-36.0 [facility] Comment on above: Order Comment: Speci men Type: BLOOD SPECIMEN Ordering Facility: [facility] Address: [address] [place] [address] Performed By: #### 2 4331-1 #### [facility] CLIA [id number] [address] [place] [address] [place] [facility] CLIA [id number] [address] [place] [address] [place] #### 3016-3, 88933-4, 2275-4 #### [facility] CLIA [id number] [address] [place] [address] [place] MCV (RBC) [Entitic vol] 91.5 fL Normal 80.0-100.0 [facility] Comment on above: Order Comment: Speci men Type: BLOOD SPECIMEN Ordering Facility: [facility] Address: [address] [place] [address] Performed By: #### 2 4331-1 #### [facility] CLIA [id number] [address] [place] [address] [place] [facility] CLIA [id number] [address] [place] [address] [place] #### 3016-3, 80922-7, 2275- #### [facility] CLIA [id number] [address] [place] [address] [place] Monocytes (Bld) [#/Vol] 0.60 10*3/uL Normal <0.87 [facility] Comment on above: Order Comment: Speci men Type: BLOOD SPECIMEN Ordering Facility: [facility] Address: [address] [place], [place] [address] Performed By: #### 2 4331-1 #### [facility] CLIA [id number] [address] [place] [address] [place] [facility] CLIA [id number] [address] [place] [address] [place] #### 3016-3, 58923-4, 2275-4 #### [facility] CLIA [id number] [address] [place] [address] [place] Monocytes/100 WBC (Bld) 7.8 % Normal [facility] Comment on above: Order Comment: Speci men Type: BLOOD SPECIMEN Ordering Facility: [facility] Address: [address] [place] [address] Performed By: #### 2 4331-1 #### [facility] CLIA [id number] [address] [place] [address] [place] [facility] CLIA [id number] [address] [place] [address] [place] #### 3016-3, 06243-2, 2275-11 #### [facility] CLIA [id number] [address] [place] [address] [place] Neutrophils (Bld) [#/Vol] 4.33 10*3/uL Normal 1.45-7.50 [facility] Comment on above: Order Comment: Speci men Type: BLOOD SPECIMEN Ordering Facility: [facility] Address: [address] [place] [address] Performed By: #### 2 4331-1 #### [facility] CLIA [id number] [address] [place] [address] [place] [facility] CLIA [id number] [address] [place] [address] [place] #### 3016-3, 64487-9, 2275-11 #### [facility] CLIA [id number] [address] [place] [address] [place] Neutrophils/100 WBC (Bld) 56.6 % Normal [facility] Comment on above: Order Comment: Speci men Type: BLOOD SPECIMEN Ordering Facility: [facility] Address: [address] [place] [address] Performed By: #### 2 4331-1 #### [facility] CLIA [id number] [address] [place] [address] [place] [facility] CLIA [id number] [address] [place] [address] [place] #### 3016-3, 45021-2, 2275-4 #### [facility] CLIA [id number] [address] [place], [place] [address] [place] Nucleated RBC (Bld) [#/Vol] 10*3/uL Normal <0.01 [facility] Comment on above: Order Comment: Speci men Type: BLOOD SPECIMEN Ordering Facility: [facility] Address: [address] [place] [address] Performed By: #### 2 4331-1 #### [facility] CLIA [id number] [address] [place] [address] [place] [facility] CLIA [id number] [address] [place] [address] [place] #### 3016-3, 73911-2, 2275-4 #### [facility] CLIA [id number] [address] [place] [address] [place] Nucleated RBC/100 WBC (Bld) [Ratio] 0.0 /100 WBC Normal [facility] Comment on above: Order Comment: Speci men Type: BLOOD SPECIMEN Ordering Facility: [facility] Address: [address] [place] [address] Performed By: #### 2 4331-1 #### [facility] CLIA [id number] [address] [place], [place] [address] [place] [facility] CLIA [id number] [address] [place] [address] [place] #### 3016-3, 11480-3, 2275-4 #### [facility] CLIA [id number] [address] [place] [address] [place] Platelet mean volume (Bld) [Entitic vol] 10.3 fL Normal 9.0-12.7 [facility] Comment on above: Order Comment: Speci men Type: BLOOD SPECIMEN Ordering Facility: [facility] Address: [address] [place] [address] Performed By: #### 2 4331-1 #### [facility] CLIA [id number] [address] [place] [address] [place] [facility] CLIA [id number] [address] [place] [address] [place] #### 3016-3, 32472-1, 2275-11 #### [facility] CLIA [id number] [address] [place] [address] [place] Platelets (Bld) [#/Vol] 257 10*3/uL Normal 150-400 [facility] Comment on above: Order Comment: Speci men Type: BLOOD SPECIMEN Ordering Facility: [facility] Address: [address] [place] [address] Performed By: #### 2 4331-1 #### [facility] CLIA [id number] [address] [place] [address] [place] [facility] CLIA [id number] [address] [place] [address] [place] #### 3016-3, 48793-8, 2275- #### [facility] CLIA [id number] [address] [place] [address] [place] RBC (Bld) [#/Vol] 4.37 10*6/uL Normal 3.90-5.20 [facility] Comment on above: Order Comment: Speci men Type: BLOOD SPECIMEN Ordering Facility: [facility] Address: [address] [place] [address] Performed By: #### 2 4331-1 #### [facility] CLIA [id number] [address] [place] [address] [place] [facility] CLIA [id number] [address] [place] [address] [place] #### 3016-3, 29999-5, 2275-4 #### [facility] CLIA [id number] [address] [place] [address] [place] WBC (Bld) [#/Vol] 7.66 10*3/uL Normal 3.70-11.00 [facility] Comment on above: Order Comment: Speci men Type: BLOOD SPECIMEN Ordering Facility: [facility] Address: [address] [place] [address] Performed By: #### 2 4331-1 #### [facility] CLIA [id number] [address] [place] [address] [place] [facility] CLIA [id number] [address] [place] [address] [place] #### 3016-3, 36710-4, 2275-4 #### [facility] CLIA [id number] [address] [place], [place] [address] [place] Comprehensive metabolic 2000 panelon 09-15-2023 Albumin [Mass/Vol] 4.1 g/dL Normal 3.9-4.9 [facility] Comment on above: Order Comment: Speci men Type: BLOOD SPECIMEN Ordering Facility: [facility] Address: [address] [place] [address] Performed By: #### 2 4331-1 #### [facility] CLIA [id number] [address] [id number] [place] [facility] CLIA [id number] [address] [place] [address] [place] #### 3016-3, 67955-7, 2275-4 #### [facility] CLIA [id number] [address] [id number] [place] ALP [Catalytic activity/Vol] 98 U/L Normal 34-123 [facility] Comment on above: Order Comment: Speci men Type: BLOOD SPECIMEN Ordering Facility: [facility] Address: [address] [place] [address] Performed By: #### 2 4331-1 #### [facility] CLIA [id number] [address] [place] [address] [place] [facility] CLIA [id number] [address] [place] [address] [place] #### 3016-3, 57381-0, 2275-11 #### [facility] CLIA [id number] [address] [place] [address] [place] ALT [Catalytic activity/Vol] 9 U/L Normal 7-38 [facility] Comment on above: Order Comment: Speci men Type: BLOOD SPECIMEN Ordering Facility: [facility] Address: [address] [place] [address] Performed By: #### 2 4331-1 #### [facility] CLIA [id number] [address] [place], [place] [address] [place] [facility] CLIA [id number] [address] [place] [address] [place] #### 3016-3, 46867-8, 2275-4 #### [facility] CLIA [id number] [address] [place] [address] [place] Anion gap [Moles/Vol] 12 mmol/L Normal 9-18 [facility] Comment on above: Order Comment: Speci men Type: BLOOD SPECIMEN Ordering Facility: [facility] Address: [address] [place] [address] Performed By: #### 2 4331-1 #### [facility] CLIA [id number] [address] [place] [address] [place] [facility] CLIA [id number] [address] [place] [address] [place] #### 3016-3, 63118-8, 2275-4 #### [facility] CLIA [id number] [address] [place] [address] [place] AST [Catalytic activity/Vol] 14 U/L Normal 13-35 [facility] Comment on above: Order Comment: Speci men Type: BLOOD SPECIMEN Ordering Facility: [facility] Address: [address] [place] [address] Performed By: #### 2 4331-1 #### [facility] CLIA [id number] [address] [place] [address] [place] [facility] CLIA [id number] [address] [place] [address] [place] #### 3016-3, 93760-1, 2275-4 #### [facility] CLIA [id number] [address] [place] [address] [place] Bilirubin [Mass/Vol] 1.0 mg/dL Normal 0.2-1.3 [facility] Comment on above: Order Comment: Speci men Type: BLOOD SPECIMEN Ordering Facility: [facility] Address: [address] [place] [address] Performed By: #### 2 4331-1 #### [facility] CLIA [id number] [address] [id number] [place] [facility] CLIA [id number] [address] [place] [address] [place] #### 3016-3, 98891-3, 2275-4 #### [facility] CLIA [id number] [address] [address] [place] Calcium [Mass/Vol] 9.4 mg/dL Normal 8.5-10.2 [facility] Comment on above: Order Comment: Speci men Type: BLOOD SPECIMEN Ordering Facility: [facility] Address: [address] [place] [address] Performed By: #### 2 4331-1 #### [facility] CLIA [id number] [address] [place] [address] [place] [facility] CLIA [id number] [address] [place] [address] [place] #### 3016-3, 92349-5, 2275- #### [facility] CLIA [id number] [address] [place] [address] [place] Chloride [Moles/Vol] 102 mmol/L Normal 97-105 [facility] Comment on above: Order Comment: Speci men Type: BLOOD SPECIMEN Ordering Facility: [facility] Address: [address] [address] Performed By: #### 2 4331-1 #### [facility] CLIA [id number] [address] [id number] [place] [facility] CLIA [id number] [address] [place] [address] [place] #### 3016-3, 44865-7, 2275-4 #### [facility] CLIA [id number] [address] [place], [place] [address] [place] CO2 [Moles/Vol] 24 mmol/L Normal 22-30 [facility] Comment on above: Order Comment: Speci men Type: BLOOD SPECIMEN Ordering Facility: [facility] Address: [address] [place] [address] Performed By: #### 2 4331-1 #### [facility] CLIA [id number] [address] [place] [address] [place] [facility] CLIA [id number] [address] [place] [address] [place] #### 3016-3, 57075-4, 6-4 #### [facility] CLIA [id number] [address] [place] [address] [place] Creatinine [Mass/Vol] 0.72 mg/dL Normal 0.58-0.96 [facility] Comment on above: Order Comment: Speci men Type: BLOOD SPECIMEN Ordering Facility: [facility] Address: [address] [place] [address] Performed By: #### 2 4331-1 #### [facility] CLIA [id number] [address] [place] [address] [place] [facility] CLIA [id number] [address] [place] [address] [place] #### 3016-3, 71236-4, 2275-4 #### [facility] CLIA [id number] [address] [place] [address] [place] Creatinine and Glomerular filtration rate.predicted panel (S/P/Bld) 98 mL/min/1.73m??? Normal >=60 [facility] Comment on above: Order Comment: Speci men Type: BLOOD SPECIMEN Ordering Facility: [facility] Address: [address] [place], [place] [address] Result Comment: Carmen mated Glomerular Filtration Rate (eGFR) is calculated using the 2020 CKD-EPI creatinine equation. This equation utilizes serum creatinine, sex, and age as parameters. The creatinine assay has traceable calibration to isotope dilution-mass spectrometry. Refer to KDIGO guidelines for clinical interpretation. In patients with unstable renal function, e.g. those with acute kidney injury, the eGFR may not accurately reflect actual GFR. Performed By: #### 2 4331-1 #### [facility] CLIA [id number] [address] [place] [address] [place] [facility] CLIA [id number] [address] [place] [address] [place] #### 3016-3, 34189-0, 2276-4 #### [facility] CLIA [id number] [address] [place] [address] [place] Glucose [Mass/Vol] 107 mg/dL High 74-99 [facility] Comment on above: Order Comment: Speci men Type: BLOOD SPECIMEN Ordering Facility: [facility] Address: [address] [place] [address] Result Comment: The [place] [employer] (ADA) provides guidance for cutoff values for fasting glucose and random glucose. The ADA defines fasting as no caloric intake for at least 8 hours. Fasting plasma glucose results between 100 to 125 mg/dL indicate increased risk for diabetes (prediabetes). Fasting plasma glucose results greater than or equal to 126 mg/dL meet the criteria for diagnosis of diabetes. In the absence of unequivocal hyperglycemia, results should be confirmed by repeat testing. In a patient with classic symptoms of hyperglycemia or hyperglycemic crisis, random plasma glucose results greater than or equal to 200 mg/dL meet the criteria for diagnosis of diabetes. Reference: Standards of Medical Care in Diabetes 2016, [place] [employer]. Diabetes Care. 2016.39(Suppl 1). Performed By: #### 2 4331-1 #### [facility] CLIA [id number] [address] [place] [address] [place] [facility] CLIA [id number] [address] [place] [address] [place] #### 3016-3, 57531-0, 2275- #### [facility] CLIA [id number] [address] [place] [address] [place] Potassium [Moles/Vol] 3.7 mmol/L Normal 3.7-5.1 [facility] Comment on above: Order Comment: Speci men Type: BLOOD SPECIMEN Ordering Facility: [facility] Address: [address] [place] [address] Performed By: #### 2 4331-1 #### [facility] CLIA [id number] [address] [place] [address] [place] [facility] CLIA [id number] [address] [place] [address] [place] #### 3016-3, 87911-6, 2275-11 #### [facility] CLIA [id number] [address] [place] [address] [place] Protein [Mass/Vol] 6.5 g/dL Normal 6.3-8.0 [facility] Comment on above: Order Comment: Speci men Type: BLOOD SPECIMEN Ordering Facility: [facility] Address: [address] [place] [address] Performed By: #### 2 4331-1 #### [facility] CLIA [id number] [address] [place] [address] [place] [facility] CLIA [id number] [address] [place] [address] [place] #### 3016-3, 07764-6, 2275-11 #### [facility] CLIA [id number] [address] [place] [address] [place] Sodium [Moles/Vol] 138 mmol/L Normal 136-144 [facility] Comment on above: Order Comment: Speci men Type: BLOOD SPECIMEN Ordering Facility: [facility] Address: [address] [place] [address] Performed By: #### 2 4331-1 #### [facility] CLIA [id number] [address] [place] [address] [place] [facility] CLIA [id number] [address] [place] [address] [place] #### 3016-3, 76324-1, 2275-4 #### [facility] CLIA [id number] [address] [place] [address] [place] Urea nitrogen [Mass/Vol] 12 mg/dL Normal 7-21 [facility] Comment on above: Order Comment: Speci men Type: BLOOD SPECIMEN Ordering Facility: [facility] Address: [address] [place] [address] Performed By: #### 2 4331-1 #### [facility] CLIA [id number] [address] [place] [address] [place] [facility] [id number] [place] [address] [place] #### 3016-3, 28580-6, 2275-4 #### [facility] CLIA [id number] [address] [place] [address] [place] Ferritin SerPl-mCncon 2023 Ferritin [Mass/Vol] 383.0 ng/mL High 14.7-205.1 [place] [facility] Comment on above: Order Comment: Speci men Type: BLOOD SPECIMEN Ordering Facility: [facility] Address: [address] [place] [address] Performed By: #### 2 4331-1 #### [facility] CLIA [id number] [address] [place] [address] [place] [facility] CLIA [id number] [address] [place] [address] [place] #### 3016-3, 92993-6, 2276-4 #### [facility] CLIA [id number] [address] [place] [address] [place] Folate SerPl-mCncon 09-15-19 24 Folate [Mass/Vol] ng/mL Normal >4.7 [facility] Comment on above: Order Comment: Speci men Type: BLOOD SPECIMEN Ordering Facility: [facility] Address: [address] [place] [address] Result Comment: A re sult of > 20 ng/mL is not necessarily indicative of a pathologic or treatable condition: it reflects a limitation of the test methodology. Assay reference range: 4.8 to 24.2 ng/mL. Suitable for detection of folate deficiency. Reference: Folate III (Folate III) [package insert V 1.0 Malay]. [facility], [place], [place]: June 2015. Performed By: #### 2 132-9, 2284-8 #### [facility] CLIA [id number] [address] [place] [address] [place] HbA1c (Bld)on 09-15-2023 Average glucose Estimated from glycated hemoglobin (Bld) [Mass/Vol] 126 mg/dL Normal [facility] Comment on above: Order Comment: Lawson hernandez Type: BLOOD SPECIMEN Ordering Facility: [facility] Address: [address] [place] [address] Result Comment: eAG: (Estimated average glucose) is a calculated value from HgbA1c and is lifeline representatives of the average blood glucose level in the last 2-3 month period. Performed By: #### 2 4331-1 #### [facility] CLIA [id number] [address] [place] [address] [place] [facility] CLIA [id number] [address] [place] [address] [place] #### 3016-3, 86120-6, 2275-4 #### [facility] CLIA [id number] [address] [place] [address] [place] HbA1c (Bld) [Mass fraction] 6.0 % High 4.3-5.6 [facility] Comment on above: Order Comment: Speci men Type: BLOOD SPECIMEN Ordering Facility: [facility] Address: [address] [place] [address] Result Comment: Amer ican Diabetes Association guidelines indicate that patients with HgbA1c in the range 5.7-6.4% are at increased risk for development of diabetes, and intervention by lifestyle modification may be beneficial. HgbA1c greater or equal to 6.5% is considered diagnostic of diabetes. Performed By: #### 2 4331-1 #### [facility] CLIA [id number] [address] [place] [address] [place] [facility] [id number] [address] [place] [address] [place] #### 3016-3, 72790-7, 2275- #### [facility] CLIA [id number] [address] [place] [address] [place] Iron and Iron binding capaci ty panelon 09-15-2023 Iron [Mass/Vol] 78 ug/dL Normal 41-186 [facility] Comment on above: Order Comment: Speci men Type: BLOOD SPECIMEN Ordering Facility: [facility] Address: [address] [place] [address] Performed By: #### 2 4331-1 #### [facility] CLIA [id number] [address] [place] [address] [place] [facility] [id number] [address] [place] [address] [place] #### 3016-3, 63519-4, 2275- #### [facility] CLIA [id number] [address] [place] [address] [place] Iron binding capacity [Mass/Vol] 275 ug/dL Normal 232-386 [facility] Comment on above: Order Comment: Speci men Type: BLOOD SPECIMEN Ordering Facility: [facility] Address: [address] [place] [address] Performed By: #### 2 4331-1 #### [facility] CLIA [id number] [address] [place] [address] [place] [facility] CLIA [id number] [address] [place] [address] [place] #### 3016-3, 39660-9, 2275-4 #### [facility] CLIA [id number] [address] [place] [address] [place] Iron/TIBC [Molar ratio] 28.4 % Normal 15.0-57.0 [facility] Comment on above: Order Comment: Speci men Type: BLOOD SPECIMEN Ordering Facility: [facility] Address: [address] [place] [address] Performed By: #### 2 4331-1 #### [facility] CLIA [id number] [address] [place] [address] [place] [facility] CLIA [id number] [address] [place] [address] [place] #### 3016-3, 56987-5, 2275-4 #### [facility] CLIA [id number] [address] [place] [address] [place] Lipid 1996 panelon 4 Cholesterol [Mass/Vol] 202 mg/dL High <200 [facility] Comment on above: Order Comment: Speci men Type: BLOOD SPECIMEN Ordering Facility: [facility] Address: [address], [place] [address] Result Comment: <200 mg/dL, Desirable 200-239 mg/dL, Borderline high >239 mg/dL, High Performed By: #### 2 4331-1 #### [facility] CLIA [id number] [address] [place] [address] [place] [facility] CLIA [id number] [address] [place] [address] [place] #### 3016-3, 51709-3, 2275-4 #### [facility] CLIA [id number] [facility] [place] [address] [place] Cholesterol in HDL [Mass/Vol] 42 mg/dL Normal >39 [facility] Comment on above: Order Comment: Speci men Type: BLOOD SPECIMEN Ordering Facility: [facility] Address: [address] [place] [address] Result Comment: 40-5 9 mg/dL, Acceptable >59 mg/dL, High: Negative risk factor for coronary heart disease <40 mg/dL, Low: Positive risk factor for coronary heart disease Performed By: #### 2 4331-1 #### [facility] CLIA [id number] [address] [place] [address] [place] [facility] CLIA [id number] [address] [place] [address] [place] #### 3016-3, 69202-4, 2275-4 #### [facility] CLIA [id number] [address] [place] [address] [place] Cholesterol in LDL [Mass/Vol] 124 mg/dL High <100 [facility] Comment on above: Order Comment: Speci men Type: BLOOD SPECIMEN Ordering Facility: [facility] Address: [address] [place], [place] [address] Result Comment: <100 mg/dL, Optimal 100-129 mg/dL, Near optimal/above optimal 130-159 mg/dL, Borderline high 160-189 mg/dL, High >189 mg/dL, Very high Secondary prevention optimal LDL Cholesterol levels are recommended to be < 70 mg/dL Performed By: #### 2 4331-1 #### [facility] CLIA [id number] [address] [place] [address] [place] [facility] CLIA [id number] [address] [place] [address] [place] #### 3016-3, 66368-8, 2275-4 #### [facility] CLIA [id number] [address] [place] [address] [place] Cholesterol in LDL/Cholesterol in HDL [Mass ratio] 2.95 {ratio} High <2.54 [facility] Comment on above: Order Comment: Speci men Type: BLOOD SPECIMEN Ordering Facility: [facility] Address: [address] [place] [address] Result Comment: Ann garcia: 1. National Cholesterol Education Program ATP III Guideline At-A-Glance Quick Desk Reference: National Heart, Lung, and Blood [place]. National Institutes of Health. 2001: NIH Publication No. 01-3305. 2. An International Atherosclerosis Society position paper: global recommendations for the management of dyslipidemia: executive summary, Atherosclerosis. 2014: 232(2):410-413. Performed By: #### 2 4331-1 #### [facility] CLIA [id number] [address] [place] [address] [place] [facility] [id number] [address] [place] [address] [place] #### 3016-3, 58396-6, 2275-4 #### [facility] CLIA [id number] [address] [place] [address] [place] Cholesterol in VLDL [Mass/Vol] 36 mg/dL High <30 [facility] Comment on above: Order Comment: Speci men Type: BLOOD SPECIMEN Ordering Facility: [facility] Address: [address] [place], [place] [address] Performed By: #### 2 4331-1 #### [facility] CLIA [id number] [address] [place], [place] [address] [place] [facility] CLIA [id number] [address] [place] [address] [place] #### 3016-3, 30149-0, 2275- #### [facility] CLIA [id number] [address] [place] [address] [place] Cholesterol non HDL [Mass/Vol] 160 mg/dL High <130 [facility] Comment on above: Order Comment: Speci men Type: BLOOD SPECIMEN Ordering Facility: [facility] Address: [address] [place] [address] Result Comment: <130 mg/dL, Optimal 130-159 mg/dL, Near optimal/above optimal 160-189 mg/dL, Borderline high 190-219 mg/dL, High >219 mg/dL, Very high Secondary prevention optimal non HDL Cholesterol levels are recommended to be <100 mg/dL Performed By: #### 2 4331-1 #### [facility] CLIA [id number] [address] [place] [address] [place] [facility] CLIA [id number] [address] [place] [address] [place] #### 3016-3, 25744-8, 2275- #### [facility] CLIA [id number] [address] [place], [place] [address] [place] Cholesterol.total/Shyanne sterol in HDL [Mass ratio] 4.81 {ratio} Normal <5.10 [facility] Comment on above: Order Comment: Speci men Type: BLOOD SPECIMEN Ordering Facility: [facility] Address: [address] [place], [place] [address] Performed By: #### 2 4331-1 #### [facility] CLIA [id number] [address] [place] [address] [place] [facility] CLIA [id number] [address] [place] [address] [place] #### 3016-3, 49379-3, 2275-4 #### [facility] CLIA [id number] [address] [place] [address] [place] FASTING TIME 12 hrs Normal [facility] Comment on above: Order Comment: Speci men Type: BLOOD SPECIMEN Ordering Facility: [facility] Address: [address] [place] [address] Performed By: #### 2 4331-1 #### [facility] CLIA [id number] [address] [place] [address] [place] [facility] CLIA [id number] [address] [place] [address] [place] #### 3016-3, 81064-7, 2275-11 #### [facility] CLIA [id number] [address] [place] [address] [place] Triglyceride [Mass/Vol] 182 mg/dL High <150 C [facility] Comment on above: Order Comment: Speci men Type: BLOOD SPECIMEN Ordering Facility: [facility] Address: [address] [place] [id number] Result Comment: <150 mg/dL, Normal 150-199 mg/dL, Borderline high 200-499 mg/dL, High >499 mg/dL, Very high Performed By: #### 2 4331-1 #### [facility] CLIA [id number] [address] [place] [address] [place] [facility] CLIA [id number] [address] [place] [address] [place] #### 3016-3, 54543-9, 2275- #### [facility] CLIA [id number] [address] [place] [address] [place] TSH SerPl-aCncon 09-15-2023 TSH Qn 16.200 m[IU]/L High 0.270-4.200 [facility] Comment on above: Order Comment: Speci men Type: BLOOD SPECIMEN Ordering Facility: [facility] Address: [address] [place] [address] Performed By: #### 2 4331-1 #### [facility] CLIA [id number] [address] [place] [address] [place] [facility] CLIA [id number] [address] [place] [address] [place] #### 3016-3, 58395-9, 2276- #### [facility] CLIA [id number] [address] [place] [address] [place] VITAMIN B1 (THIAMINE), WHOLE BLOODon 09-15-2023 Thiamine (Bld) [Moles/Vol] 248.3 nmol/L High 84.3-213.3 [facility] Comment on above: Order Comment: Speci men Type: BLOOD SPECIMEN Ordering Facility: [facility] Address: [address] [place] [address] Result Comment: This assay measures the concentration of thiamine diphosphate (TDP), the primary active form of vitamin B1. Approximately 90 percent of vitamin B1 present in whole blood is TDP. Thiamine and thiamine monophosphate, which comprise the remaining 10 percent, are not measured. This test was developed and its performance characteristics determined by [facility] Pathology [facility] Laboratory Medicine [place] ([facility]). It has not been cleared or approved by the FDA. [facility] is regulated under CLIA as qualified to perform high-complexity testing. This test is used for clinical purposes. It should not be regarded as investigational or for research. Performed By: #### 2 4331-1 #### [facility] CLIA [id number] [address] [place] [address] [place] [facility] CLIA [id number] [address] [place] [address] [place] #### 3016-3, 28094-1, 2276-4 #### [facility] CLIA [id number] [address] [place] [address] [place] Vit B12 SerPl-OSS Healthon 024 Cobalamin (Vitamin B12) [Mass/Vol] 975 pg/mL Normal 232-1245 [facility] Comment on above: Order Comment: Speci men Type: BLOOD SPECIMEN Ordering Facility: [facility] Address: [address] [place] [address] Performed By: #### 2 132-9, 2284-8 #### [facility] CLIA [id number] [address] [place] [address] [place] Absolute lymphocyte countOrd ered By: ED PROVIDER on 06-27-2023 Lymphocytes Auto (Unsp spec) [#/Vol] 1.70 10*3/uL 0.83-4.51 [facility] Basophil percentageOrdered B y: ED PROVIDER on 06-27-2023 Basophils/100 WBC (Bld) 0.4 % 0-1 [facility] Bilirubin [Mass/Vol] 1.00 mg/dL 0.20-1.00 [facility] Comment on above: For patients on eltr ombopag therapy, use of Dimension Odon TBIL is not recommended. Chloride [Moles/Vol] 106 mmol/L 98-107 [facility] Eosinophils/100 WBC (Bld) 2.2 % 0-5 [facility] Glucose [Mass/Vol] 121 mg/dL 74-106 [facility] Comment on above: Fasting Glucose resu lt from 100 to 125 mg/dL suggests IMPAIRED HOMEOSTASIS per A.D.A. criteria. Neutrophils (Bld) [#/Vol] 5.3 10*3/uL 2.0-7.7 [facility] Neutrophils/100 WBC (Bld) 67.5 % 47-70 [facility] Potassium [Moles/Vol] 3.5 mmol/L 3.5-5.1 [facility] Protein [Mass/Vol] 7.3 g/dL 6.4-8.2 [facility] Sodium [Moles/Vol] 138 mmol/L 136-145 [facility] WBC (Bld) [#/Vol] 7.8 10*3/uL 4.4-11.0 [facility] Blood erythrocytes count (nu mber/volume)Ordered By: ED PROVIDER on 06-27-2023 RBC (Bld) [#/Vol] 4.29 10*6/uL 4.2-5.4 [facility] Blood hemoglobin measurement (mass/volume)Ordered By: ED PROVIDER on 06-27-2023 Hemoglobin (Bld) [Mass/Vol] 13.0 g/dL 12.0-15.0 [facility] Blood lymphocytes/100 leukoc ytesOrdered By: ED PROVIDER on 06-27-2023 Lymphocytes/100 WBC (Bld) 21.8 % 19-41 [facility] Blood monocytes/100 leukocyt esOrdered By: ED PROVIDER on 06-27-2023 Monocytes/100 WBC (Bld) 7.8 % 0-10 [facility] Blood platelet mean volumeOr dered By: ED PROVIDER on 06-27-2023 Platelet mean volume (Bld) [Entitic vol] 11.1 fL 6.2-12.0 [facility] Determination of erythrocyte mean corpuscular volume (MCV)Ordered By: ED PROVIDER on 06-27-2023 MCV (RBC) [Entitic vol] 95.1 fL 81-99 [facility] Hematocrit Auto (Bld) [Volum e fraction]Ordered By: ED PROVIDER on 06-27-2023 Hematocrit (Bld) [Volume fraction] 40.8 % 37-47 [facility] Laboratory - Chemistry and C hemistry - challengeOrdered By: ED PROVIDER on 06-27-2023 ALP [Catalytic activity/Vol] 86 U/L 45-117 [facility] ALT [Catalytic activity/Vol] 22 U/L 13-56 [facility] CO2 [Moles/Vol] 27.0 mmol/L 21.0-32.0 [facility] Globulin (S) [Mass/Vol] 3.5 g/dL 2.2-4.2 [facility] Urea nitrogen/Creatinine [Mass ratio] 32.1 mg/mg 10-20 [facility] Laboratory - Hematology and Cell countsOrdered By: ED PROVIDER on 06-27-2023 Erythrocyte distribution width (RBC) [Entitic vol] 49.0 fL 35.1-43.9 [facility] Erythrocyte distribution width (RBC) [Ratio] 14.1 % 11.6-14.6 [facility] Immature granulocytes/100 WBC (Bld) 0.300 % 0.0-0.9 [facility] Comment on above: IG% - Immature Granu locytes (promyelocytes, myelocytes and metamyelocytes) > 1% indicates that a LEFT SHIFT is Present. MCH (RBC) [Entitic mass] 30.3 pg 27.0-32.0 [facility] Nucleated RBC/100 WBC (Bld) [Ratio] 0 % 0-5 [facility] MCHC Auto (RBC) [Mass/Vol]Or dered By: ED PROVIDER on 06-27-2023 MCHC (RBC) [Mass/Vol] 31.9 g/dL 32-36 [facility] No Panel InformationOrdered By: ED PROVIDER on 06-27-2023 Estimated Creatinine Clearance Calc 63.70 ml/min [facility] Estimated GFR (MDRD) Amer 98 mL/min >60 [facility] Comment on above: GFR Calc Estimated GFR (MDRD) Non-Af Amer 81 mL/min >60 [facility] Comment on above: Non- GFR Calc Platelets bldOrdered By: ED PROVIDER on 06-27-2023 Platelets (Bld) [#/Vol] 276 10*3/uL 150-450 [facility] Serum or plasma albumin torres urement (mass/volume)Ordered By: ED PROVIDER on 06-27-2023 Albumin [Mass/Vol] 3.8 g/dL 3.2-5.0 [facility] Serum or plasma albumin/glob ulin mass ratioOrdered By: ED PROVIDER on 06-27-2023 Albumin/Globulin [Mass ratio] 1.1 {ratio} 0.9-2.4 [facility] Serum or plasma calcium torres urement (mass/volume)Ordered By: ED PROVIDER on 06-27-2023 Calcium [Mass/Vol] 9.4 mg/dL 8.5-10.1 [facility] Serum or plasma creatinine m easurement (mass/volume)Ordered By: ED PROVIDER on 06-27-2023 Creatinine [Mass/Vol] 0.78 mg/dL 0.55-1.02 [facility] Comment on above: The validity of the calculated GFR & GFRAA in patients over 70 years has not been determined. Clinical correlation is essential. Serum or plasma urea nitroge n measurement (mass/volume)Ordered By: ED PROVIDER on 06-27-2023 Urea nitrogen [Mass/Vol] 25 mg/dL 7-18 [facility] Thin prep Papanicolaou smear with manual screeningOrdered By: ED PROVIDER on 06-27-2023 Thin prep Papanicolaou smear with manual screening 14 U/L 15-37 [facility] Thin prep Papanicolaou smear with manual screening 5 5-15 [facility] CBC W Auto Differential pane l (Bld)on 05-18-2023 Basophils (Bld) [#/Vol] 0.05 10*3/uL <0.11 k/uL [facility] Basophils/100 WBC (Bld) 0.7 % [facility] Differential cell count method Nom (Bld) Auto [facility] Eosinophils (Bld) [#/Vol] 0.22 10*3/uL <0.46 k/uL [facility] Eosinophils/100 WBC (Bld) 2.9 % [facility] Erythrocyte distribution width (RBC) [Ratio] 13.4 % 11.5 - 15.0 % [facility] Hematocrit (Bld) [Volume fraction] 41.4 % 36.0 - 46.0 % [facility] Hemoglobin (Bld) [Mass/Vol] 13.4 g/dL 11.5 - 15.5 g/dL [facility] Immature granulocytes (Bld) [#/Vol] 0.04 10*3/uL <0.10 k/uL [facility] Immature granulocytes/100 WBC (Bld) 0.5 % [facility] Lymphocytes (Bld) [#/Vol] 1.75 10*3/uL 1.00 - 4.00 k/uL [facility] Lymphocytes/100 WBC (Bld) 23.5 % [facility] MCH (RBC) [Entitic mass] 30.1 pg 26.0 - 34.0 pg [facility] MCHC (RBC) [Mass/Vol] 32.4 g/dL 30.5 - 36.0 g/dL [facility] MCV (RBC) [Entitic vol] 93.0 fL 80.0 - 100.0 fL [facility] Monocytes (Bld) [#/Vol] 0.54 10*3/uL <0.87 k/uL [facility] Monocytes/100 WBC (Bld) 7.2 % [facility] Neutrophils (Bld) [#/Vol] 4.86 10*3/uL 1.45 - 7.50 k/uL [facility] Neutrophils/100 WBC (Bld) 65.2 % [facility] Nucleated RBC (Bld) [#/Vol] <0.01 k/uL [facility] Nucleated RBC/100 WBC (Bld) [Ratio] 0.0 /100 WBC [facility] Platelet mean volume (Bld) [Entitic vol] 10.6 fL 9.0 - 12.7 fL [facility] Platelets (Bld) [#/Vol] 283 10*3/uL 150 - 400 k/uL [facility] RBC (Bld) [#/Vol] 4.45 10*6/uL 3.90 - 5.2 0 m/uL [facility] WBC (Bld) [#/Vol] 7.46 10*3/uL 3.70 - 11. 00 k/uL [facility] Comprehensive metabolic 2000 panelon 05-18-2023 Albumin [Mass/Vol] 4.3 g/dL 3.9 - 4.9 g/dL [facility] ALP [Catalytic activity/Vol] 88 U/L 34 - 123 U/L [facility] ALT [Catalytic activity/Vol] 16 U/L 7 - 38 U/L [facility] Anion gap [Moles/Vol] 17 mmol/L 9 - 18 mmol/L [facility] AST [Catalytic activity/Vol] 27 U/L 13 - 35 U/L [facility] Bilirubin [Mass/Vol] 1.5 mg/dL High 0.2 - 1 .3 mg/dL [facility] Calcium [Mass/Vol] 9.7 mg/dL 8.5 - 10. 2 mg/dL [facility] Chloride [Moles/Vol] 104 mmol/L 97 - 10 5 mmol/L [facility] CO2 [Moles/Vol] 21 mmol/L Low 22 - 30 mmol/L [facility] Creatinine [Mass/Vol] 0.71 mg/dL 0.58 - 0.96 mg/dL [facility] Estimated Glomerular Filtration Rate 100 mL/min/1.73m >=60 mL/min/1.73m [facility] Glucose [Mass/Vol] 120 mg/dL High 74 - 99 mg/dL [facility] Potassium [Moles/Vol] 4.3 mmol/L 3.7 - 5.1 mmol/L [facility] Protein [Mass/Vol] 6.9 g/dL 6.3 - 8.0 g/dL [facility] Sodium [Moles/Vol] 142 mmol/L 136 - 144 mmol/L [facility] Urea nitrogen [Mass/Vol] 16 mg/dL 7 - 21 mg/dL [facility] Basophil percentageOrdered B y: Susanna De on 05-05-2023 Bilirubin [Mass/Vol] 1.30 mg/dL 0.20-1.00 [facility] Comment on above: For patients on eltr ombopag therapy, use of Dimension Odon TBIL is not recommended. Chloride [Moles/Vol] 105 mmol/L 98-107 [facility] Glucose [Mass/Vol] 149 mg/dL 74-106 [facility] Comment on above: Fasting Glucose resu lt greater than or equal to 126 mg/dL suggests DIABETES MELLITUS per A.D.A. criteria. Potassium [Moles/Vol] 5.3 mmol/L 3.5-5.1 [facility] Comment on above: Slight Hemolysis, Re sult may be falsely increased. Protein [Mass/Vol] 7.0 g/dL 6.4-8.2 [facility] Sodium [Moles/Vol] 139 mmol/L 136-145 [facility] Laboratory - Chemistry and C hemistry - challengeOrdered By: Susanna De on 05-05-2023 ALP [Catalytic activity/Vol] 97 U/L 45-117 [facility] ALT [Catalytic activity/Vol] 28 U/L 13-56 [facility] CO2 [Moles/Vol] 30.0 mmol/L 21.0-32.0 [facility] Globulin (S) [Mass/Vol] 3.1 g/dL 2.2-4.2 [facility] Urea nitrogen/Creatinine [Mass ratio] 15.4 mg/mg 10-20 [facility] No Panel InformationOrdered By: Susanna De on 05-05-2023 Estimated GFR (MDRD) Amer 98 mL/min >60 [facility] Comment on above: GFR Calc Estimated GFR (MDRD) Non-Af Amer 81 mL/min >60 [facility] Comment on above: Non- GFR Calc Serum or plasma albumin torres urement (mass/volume)Ordered By: Susanna De on 05-05-2023 Albumin [Mass/Vol] 3.9 g/dL 3.2-5.0 [facility] Serum or plasma albumin/glob ulin mass ratioOrdered By: Susanna De on 05-05-2023 Albumin/Globulin [Mass ratio] 1.3 {ratio} 0.9-2.4 [facility] Serum or plasma calcium torres urement (mass/volume)Ordered By: Susanna De on 05-05-2023 Calcium [Mass/Vol] 9.5 mg/dL 8.5-10.1 [facility] Serum or plasma creatinine m easurement (mass/volume)Ordered By: Susanna De on 05-05-2023 Creatinine [Mass/Vol] 0.78 mg/dL 0.55-1.02 [facility] Comment on above: The validity of the calculated GFR & GFRAA in patients over 70 years has not been determined. Clinical correlation is essential. Serum or plasma urea nitroge n measurement (mass/volume)Ordered By: Susanna eD on 05-05-2023 Urea nitrogen [Mass/Vol] 12 mg/dL 7-18 [facility] Thin prep Papanicolaou smear with manual screeningOrdered By: Susanna De on 05-05-2023 Thin prep Papanicolaou smear with manual screening 18 U/L 15-37 [facility] Comment on above: Slight Hemolysis, Re sult may be falsely increased. Thin prep Papanicolaou smear with manual screening 4 5-15 [facility] XR CHEST 2V FRONTAL/LATon [facility] Absolute lymphocyte countOrd ered By: Dr. Almaraz on 11-30-2022 Lymphocytes Auto (Unsp spec) [#/Vol] 2.38 10*3/uL 0.83-4.51 [facility] Basophil percentageOrdered B y: Dr. Almaraz on 11-30-2022 Basophil percentage 4.4 mg/dL 2.5-4.9 [facility] Basophils/100 WBC (Bld) 0.5 % 0-1 [facility] Bilirubin [Mass/Vol] 0.80 mg/dL 0.20-1.00 [facility] Comment on above: For patients on eltr ombopag therapy, use of Dimension Odon TBIL is not recommended. Chloride [Moles/Vol] 106 mmol/L 98-107 [facility] Cholesterol [Mass/Vol] 146 mg/dL <200 [facility] Comment on above: <200 mg/dL Desirable 200-240 mg/dL Borderline >240 mg/dL High Risk Eosinophils/100 WBC (Bld) 3.9 % 0-5 [facility] Glucose [Mass/Vol] 131 mg/dL 74-106 [facility] Comment on above: Fasting Glucose resu lt greater than or equal to 126 mg/dL suggests DIABETES MELLITUS per A.D.A. criteria. Neutrophils (Bld) [#/Vol] 4.1 10*3/uL 2.0-7.7 [facility] Neutrophils/100 WBC (Bld) 54.2 % 47-70 [facility] Potassium [Moles/Vol] 3.7 mmol/L 3.5-5.1 [facility] Protein [Mass/Vol] 6.1 g/dL 6.4-8.2 [facility] Sodium [Moles/Vol] 138 mmol/L 136-145 [facility] Triglyceride [Mass/Vol] 148 mg/dL <199 [facility] Comment on above: The drugs N-Acetylcy steine and Metamizole may falsely depress this assay.Serum Triglycerides Reference Interval Normal <150 mg/dL Borderline high 150 - 199 mg/dL High 200 - 499 mg/dL Very High > or = 500 mg/dL WBC (Bld) [#/Vol] 7.5 10*3/uL 4.4-11.0 [facility] Blood erythrocytes count (nu mber/volume)Ordered By: Dr. Almaraz on 11-30-2022 RBC (Bld) [#/Vol] 4.06 10*6/uL 4.2-5.4 [facility] Blood hemoglobin measurement (mass/volume)Ordered By: Dr. Almaraz on 11-30-2022 Hemoglobin (Bld) [Mass/Vol] 12.3 g/dL 12.0-15.0 [facility] Blood lymphocytes/100 leukoc ytesOrdered By: Dr. Almaraz on 11-30-2022 Lymphocytes/100 WBC (Bld) 31.8 % 19-41 [facility] Blood monocytes/100 leukocyt esOrdered By: Dr. Almaraz on 11-30-2022 Monocytes/100 WBC (Bld) 9.1 % 0-10 [facility] Blood platelet mean volumeOr dered By: Dr. Almaraz on 11-30-2022 Platelet mean volume (Bld) [Entitic vol] 10.5 fL 6.2-12.0 [facility] Determination of erythrocyte mean corpuscular volume (MCV)Ordered By: Dr. Almaraz on 11-30-2022 MCV (RBC) [Entitic vol] 92.6 fL 81-99 [facility] Hematocrit Auto (Bld) [Volum e fraction]Ordered By: Dr. Almaraz on 11-30-2022 Hematocrit (Bld) [Volume fraction] 37.6 % 37-47 [facility] Laboratory - Chemistry and C hemistry - challengeOrdered By: Dr. Almaraz on 11-30-2022 ALP [Catalytic activity/Vol] 75 U/L 45-117 [facility] ALT [Catalytic activity/Vol] 19 U/L 13-56 [facility] CO2 [Moles/Vol] 29.0 mmol/L 21.0-32.0 [facility] Globulin (S) [Mass/Vol] 2.9 g/dL 2.2-4.2 [facility] Magnesium [Mass/Vol] 2.3 mg/dL 1.6-2.6 [facility] Urea nitrogen/Creatinine [Mass ratio] 18.5 mg/mg 10-20 [facility] Laboratory - Chemistry and C hemistry - challengeOrdered By: Dr. Springer on 11-30-2022 Free T4 [Mass/Vol] 1.57 ng/dL 0.76-1.46 [facility] - Hematology and Cell countsOrdered By: Dr. Almaraz on 11-30-2022 Erythrocyte distribution width (RBC) [Entitic vol] 43.2 fL 35.1-43.9 [facility] Erythrocyte distribution width (RBC) [Ratio] 12.7 % 11.6-14.6 [facility] Immature granulocytes/100 WBC (Bld) 0.500 % 0.0-0.9 [facility] Comment on above: IG% - Immature Granu locytes (promyelocytes, myelocytes and metamyelocytes) > 1% indicates that a LEFT SHIFT is Present. MCH (RBC) [Entitic mass] 30.3 pg 27.0-32.0 [facility] Nucleated RBC/100 WBC (Bld) [Ratio] 0 % 0-5 [facility] MCHC Auto (RBC) [Mass/Vol]Or dered By: Dr. Almaraz on 11-30-2022 MCHC (RBC) [Mass/Vol] 32.7 g/dL 32-36 [facility] No Panel InformationOrdered By: Dr. Almaraz on 11-30-2022 Estimated Creatinine Clearance Calc 70.98 ml/min [facility] Estimated GFR (MDRD) Amer 111 mL/min >60 [facility] Comment on above: GFR Calc Estimated GFR (MDRD) Non-Af Amer 91 mL/min >60 [facility] Comment on above: Non- GFR Calc Thyroid Stimulating Hormone (TSH) 0.11 uIU/mL 0.358-3.74 [facility] Platelets bldOrdered By: Dr. Almaraz on 11-30-2022 Platelets (Bld) [#/Vol] 277 10*3/uL 150-450 [facility] Serum or plasma albumin torres urement (mass/volume)Ordered By: Dr. Almaraz on 11-30-2022 Albumin [Mass/Vol] 3.2 g/dL 3.2-5.0 [facility] Serum or plasma albumin/glob ulin mass ratioOrdered By: Dr. Almaraz on 11-30-2022 Albumin/Globulin [Mass ratio] 1.1 {ratio} 0.9-2.4 [facility] Serum or plasma calcium torres urement (mass/volume)Ordered By: Dr. Almaraz on 11-30-2022 Calcium [Mass/Vol] 8.6 mg/dL 8.5-10.1 [facility] Serum or plasma cholesterol in HDL measurement (mass/volume)Ordered By: Dr. Almaraz on 11-30-2022 Cholesterol in HDL [Mass/Vol] 39 mg/dL >40 [facility] Comment on above: The drugs N-Acetylcy steine and Metamizole may falsely depress this assay. Reference Range HDL <40 mg/dL Low HDL Cholesterol HDL >or= 60 mg/dL High HDL Cholesterol Serum or plasma cholesterol in VLDL measurement (mass/volume)Ordered By: Dr. Almaraz on 11-30-2022 Cholesterol in VLDL [Mass/Vol] 30 mg/dL 5-40 [facility] Serum or plasma creatinine m easurement (mass/volume)Ordered By: Dr. Almaraz on 11-30-2022 Creatinine [Mass/Vol] 0.70 mg/dL 0.55-1.02 [facility] Comment on above: The validity of the calculated GFR & GFRAA in patients over 70 years has not been determined. Clinical correlation is essential. Serum or plasma low density lipoprotein (LDL) cholesterol measurement (mass/volume)Ordered By: Dr. Almaraz on 11-30-2022 Cholesterol in LDL [Mass/Vol] 77 mg/dL 0-130 [facility] Serum or plasma urea nitroge n measurement (mass/volume)Ordered By: Dr. Almaraz on 11-30-2022 Urea nitrogen [Mass/Vol] 13 mg/dL 7-18 [facility] Thin prep Papanicolaou smear with manual screeningOrdered By: Dr. Almaraz on 11-30-2022 Thin prep Papanicolaou smear with manual screening 11 U/L 15-37 [facility] Thin prep Papanicolaou smear with manual screening 3 5-15 [facility] Whole blood hemoglobin A1c/t otal hemoglobin ratio (mass fraction)Ordered By: Dr. Almaraz on 11-30-2022 HbA1c (Bld) [Mass fraction] 6.3 % 3.8-5.6 [facility] Comment on above: Normal < 5.7 % Predi abetic 5.7 - 6.4 % Diabetic >or= 6.5 % Please note range changes. Absolute lymphocyte countOrd ered By: Dr. Bo on 11-29-2022 Lymphocytes Auto (Unsp spec) [#/Vol] 2.58 10*3/uL 0.83-4.51 [facility] Basophil percentageOrdered B y: Dr. Bo on 11-29-2022 Basophils/100 WBC (Bld) 0.6 % 0-1 [facility] Chloride [Moles/Vol] 105 mmol/L 98-107 [facility] Eosinophils/100 WBC (Bld) 4.0 % 0-5 [facility] Glucose [Mass/Vol] 203 mg/dL 74-106 [facility] Comment on above: Glucose result great er than or equal to 200 mg/dLsuggests DIABETES MELLITUS per A.D.A. criteria. Neutrophils (Bld) [#/Vol] 4.4 10*3/uL 2.0-7.7 [facility] Neutrophils/100 WBC (Bld) 53.9 % 47-70 [facility] Potassium [Moles/Vol] 3.6 mmol/L 3.5-5.1 [facility] Sodium [Moles/Vol] 137 mmol/L 136-145 [facility] WBC (Bld) [#/Vol] 8.2 10*3/uL 4.4-11.0 [facility] Blood erythrocytes count (nu mber/volume)Ordered By: Dr. Bo on 11-29-2022 RBC (Bld) [#/Vol] 4.60 10*6/uL 4.2-5.4 [facility] Blood hemoglobin measurement (mass/volume)Ordered By: Dr. Bo on 11-29-2022 Hemoglobin (Bld) [Mass/Vol] 13.7 g/dL 12.0-15.0 [facility] Blood lymphocytes/100 leukoc ytesOrdered By: Dr. Bo on 11-29-2022 Lymphocytes/100 WBC (Bld) 31.4 % 19-41 [facility] Blood monocytes/100 leukocyt esOrdered By: Dr. Bo on 11-29-2022 Monocytes/100 WBC (Bld) 9.0 % 0-10 [facility] Blood platelet mean volumeOr dered By: Dr. Bo on 11-29-2022 Platelet mean volume (Bld) [Entitic vol] 10.5 fL 6.2-12.0 [facility] Determination of erythrocyte mean corpuscular volume (MCV)Ordered By: Dr. Bo on 11-29-2022 MCV (RBC) [Entitic vol] 92.8 fL 81-99 [facility] Glucose Glucometer (BldC) [M ass/Vol]Ordered By: Dr. Almaraz on 11-29-2022 Glucose [Mass/Vol] 239 mg/dL 74-106 [facility] Comment on above: MANAGEMENT OF PATIEN T CARE PER NURSING PROTOCOL Hematocrit Auto (Bld) [Volum e fraction]Ordered By: Dr. Bo on 11-29-2022 Hematocrit (Bld) [Volume fraction] 42.7 % 37-47 [facility] INR in Blood by Coagulation assayOrdered By: Dr. Bo on 11-29-2022 INR Coag (Bld) [Relative time] 1.0 {INR} [facility] Laboratory - Chemistry and C hemistry - challengeOrdered By: Dr. Bo on 11-29-2022 CO2 [Moles/Vol] 27.0 mmol/L 21.0-32.0 [facility] Urea nitrogen/Creatinine [Mass ratio] 17.3 mg/mg 10-20 [facility] Laboratory - CoagulationOrde red By: Dr. Bo on 11-29-2022 aPTT Coag (Bld) [Time] 27.0 s 24.1-36.2 [facility] PT Coag (PPP) [Time] 12.9 s 11.7-14.9 [facility] Laboratory - Hematology and Cell countsOrdered By: Dr. Bo on 11-29-2022 Erythrocyte distribution width (RBC) [Entitic vol] 42.5 fL 35.1-43.9 [facility] Erythrocyte distribution width (RBC) [Ratio] 12.5 % 11.6-14.6 [facility] Immature granulocytes/100 WBC (Bld) 1.100 % 0.0-0.9 [facility] Comment on above: IG% - Immature Granu locytes (promyelocytes, myelocytes and metamyelocytes) > 1% indicates that a LEFT SHIFT is Present. MCH (RBC) [Entitic mass] 29.8 pg 27.0-32.0 [facility] Nucleated RBC/100 WBC (Bld) [Ratio] 0 % 0-5 [facility] ([facility]BC) [Mass/Vol]Or dered By: Dr. Bo on 11-29-2022 MCHC (RBC) [Mass/Vol] 32.1 g/dL 32-36 [facility] No Panel InformationOrdered By: Dr. Bo on 11-29-2022 Estimated Creatinine Clearance Calc 61.34 ml/min [facility] Estimated GFR (MDRD) Amer 94 mL/min >60 [facility] Comment on above: GFR Calc Estimated GFR (MDRD) Non-Af Amer 78 mL/min >60 [facility] Comment on above: Non- GFR Calc Troponin I High Sensitivity 4 pg/mL 3.0-54.0 [facility] Comment on above: Please Note: New Iva t Units and Gender Specific Reference Ranges. For more information see Policy Stat Procedure Odon High Sensitivity Troponin (TNIH) and attachments. Platelets bldOrdered By: Dr. Bo on 11-29-2022 Platelets (Bld) [#/Vol] 304 10*3/uL 150-450 [facility] Serum or plasma calcium torres urement (mass/volume)Ordered By: Dr. Bo on 11-29-2022 Calcium [Mass/Vol] 9.5 mg/dL 8.5-10.1 [facility] Serum or plasma creatinine m easurement (mass/volume)Ordered By: Dr. Bo on 11-29-2022 Creatinine [Mass/Vol] 0.81 mg/dL 0.55-1.02 [facility] Comment on above: The validity of the calculated GFR & GFRAA in patients over 70 years has not been determined. Clinical correlation is essential. Serum or plasma urea nitroge n measurement (mass/volume)Ordered By: Dr. Bo on 11-29-2022 Urea nitrogen [Mass/Vol] 14 mg/dL 7-18 [facility] Thin prep Papanicolaou smear with manual screeningOrdered By: Dr. Bo on 11-29-2022 Thin prep Papanicolaou smear with manual screening 5 5-15 [facility] Absolute lymphocyte countOrd ered By: Dr. Cruz on 09-12-2022 Lymphocytes Auto (Unsp spec) [#/Vol] 2.15 10*3/uL 0.83-4.51 [facility] Basophil percentageOrdered B y: Dr. Cruz on 09-12-2022 Basophils/100 WBC (Bld) 0.5 % 0-1 [facility] Chloride [Moles/Vol] 104 mmol/L 98-107 [facility] Eosinophils/100 WBC (Bld) 2.7 % 0-5 [facility] Glucose [Mass/Vol] 105 mg/dL 74-106 [facility] Comment on above: Fasting Glucose resu lt from 100 to 125 mg/dL suggests IMPAIRED HOMEOSTASIS per A.D.A. criteria. Neutrophils (Bld) [#/Vol] 5.0 10*3/uL 2.0-7.7 [facility] Neutrophils/100 WBC (Bld) 61.3 % 47-70 [facility] Potassium [Moles/Vol] 4.1 mmol/L 3.5-5.1 [facility] Sodium [Moles/Vol] 140 mmol/L 136-145 [facility] WBC (Bld) [#/Vol] 8.2 10*3/uL 4.4-11.0 [facility] Basophil percentageOrdered B y: ED PROVIDER on 09-12-2022 Basophil percentage 0-5 SEEN /hpf 0-5 [facility] Bilirubin Test strip Ql (U)O rdered By: ED PROVIDER on 09-12-2022 Bilirubin Ql (U) Negative Negative [facility] Blood erythrocytes count (nu mber/volume)Ordered By: Dr. Cruz on 09-12-2022 RBC (Bld) [#/Vol] 4.43 10*6/uL 4.2-5.4 [facility] Blood hemoglobin measurement (mass/volume)Ordered By: Dr. Cruz on 09-12-2022 Hemoglobin (Bld) [Mass/Vol] 13.3 g/dL 12.0-15.0 [facility] Blood lymphocytes/100 leukoc ytesOrdered By: Dr. Cruz on 09-12-2022 Lymphocytes/100 WBC (Bld) 26.4 % 19-41 [facility] Blood monocytes/100 leukocyt esOrdered By: Dr. Cruz on 09-12-2022 Monocytes/100 WBC (Bld) 8.6 % 0-10 [facility] Blood platelet mean volumeOr dered By: Dr. Cruz on 09-12-2022 Platelet mean volume (Bld) [Entitic vol] 10.5 fL 6.2-12.0 [facility] Determination of erythrocyte mean corpuscular volume (MCV)Ordered By: Dr. Cruz on 09-12-2022 MCV (RBC) [Entitic vol] 94.8 fL 81-99 [facility] Hematocrit Auto (Bld) [Volum e fraction]Ordered By: Dr. Cruz on 09-12-2022 Hematocrit (Bld) [Volume fraction] 42.0 % 37-47 [facility] Ketones Test strip Ql (U)Ord ered By: ED PROVIDER on 09-12-2022 Ketones Ql (U) 5 mg/dl Negative [facility] Laboratory - Chemistry and C hemistry - challengeOrdered By: Dr. Cruz on 09-12-2022 CO2 [Moles/Vol] 28.0 mmol/L 21.0-32.0 [facility] Urea nitrogen/Creatinine [Mass ratio] 18.8 mg/mg 10-20 [facility] Laboratory - Hematology and Cell countsOrdered By: Dr. Cruz on 09-12-2022 Erythrocyte distribution width (RBC) [Entitic vol] 46.7 fL 35.1-43.9 [facility] Erythrocyte distribution width (RBC) [Ratio] 13.3 % 11.6-14.6 [facility] Immature granulocytes/100 WBC (Bld) 0.500 % 0.0-0.9 [facility] Comment on above: IG% - Immature Granu locytes (promyelocytes, myelocytes and metamyelocytes) > 1% indicates that a LEFT SHIFT is Present. MCH (RBC) [Entitic mass] 30.0 pg 27.0-32.0 [facility] Nucleated RBC/100 WBC (Bld) [Ratio] 0 % 0-5 [facility] MCHC Auto (RBC) [Mass/Vol]Or dered By: Dr. Cruz on 09-12-2022 MCHC (RBC) [Mass/Vol] 31.7 g/dL 32-36 [facility] Mucus LM Ql (Urine sed)Order ed By: ED PROVIDER on 09-12-2022 Mucus Ql (Urine sed) 1+ /hpf [facility] Nitrite Test strip Ql (U)Ord ered By: ED PROVIDER on 09-12-2022 Nitrite Ql (U) Negative Negative [facility] No Panel InformationOrdered By: Dr. Cruz on 09-12-2022 Estimated Creatinine Clearance Calc 62.10 ml/min [facility] Estimated GFR (MDRD) Amer 96 mL/min >60 [facility] Comment on above: GFR Calc Estimated GFR (MDRD) Non-Af Amer 79 mL/min >60 [facility] Comment on above: Non- GFR Calc Platelets bldOrdered By: Dr. Cruz on 09-12-2022 Platelets (Bld) [#/Vol] 317 10*3/uL 150-450 [facility] Protein Test strip Ql (U)Ord ered By: ED PROVIDER on 09-12-2022 Protein Ql (U) 15 mg/dl Negative [facility] Serum or plasma calcium torres urement (mass/volume)Ordered By: Dr. Cruz on 09-12-2022 Calcium [Mass/Vol] 9.2 mg/dL 8.5-10.1 [facility] Serum or plasma creatinine m easurement (mass/volume)Ordered By: Dr. Cruz on 09-12-2022 Creatinine [Mass/Vol] 0.80 mg/dL 0.55-1.02 [facility] Comment on above: The validity of the calculated GFR & GFRAA in patients over 70 years has not been determined. Clinical correlation is essential. Serum or plasma urea nitroge n measurement (mass/volume)Ordered By: Dr. Cruz on 09-12-2022 Urea nitrogen [Mass/Vol] 15 mg/dL 7-18 [facility] Squamous epithelial cells de tection in urine sediment by light microscopyOrdered By: ED PROVIDER on 09-12-2022 Epithelial cells.squamous LM Ql (Urine sed) 0-5 SEEN /hpf 5-10 [facility] Thin prep Papanicolaou smear with manual screeningOrdered By: Dr. Cruz on 09-12-2022 Thin prep Papanicolaou smear with manual screening 8 5-15 [facility] Urine blood detectionOrdered By: ED PROVIDER on 09-12-2022 RBC Ql (U) Negative Negative [facility] RBC Ql (U) 0 SEEN /hpf 0-5 [facility] Urine clarityOrdered By: ED PROVIDER on 09-12-2022 Clarity (U) Sl. Cloudy Clear [facility] Urine color determinationOrd ered By: ED PROVIDER on 09-12-2022 Color (U) Yellow Yellow [facility] Urine glucose detectionOrder ed By: ED PROVIDER on 09-12-2022 Glucose Ql (U) Normal mg/dl Normal [facility] Urine leukocyte esterase det ection by dipstickOrdered By: ED PROVIDER on 09-12-2022 Leukocyte esterase Test strip Ql (U) 25 /ul Negative [facility] Urine pHOrdered By: ED PROVI VENESSA on 09-12-2022 pH (U) 6.0 [pH] 5.0 - 8.0 [facility] Urine sediment bacteria coun t by microscopy (number/high power field)Ordered By: ED PROVIDER on 09-12-2022 Bacteria LM.HPF (Urine sed) [#/Area] 1 /[HPF] None Seen [facility] Urine specific gravity measu rementOrdered By: ED PROVIDER on 09-12-2022 Specific gravity (U) [Rel density] 1.020 1.002-1.030 [facility] Urobilinogen Auto test strip Ql (U)Ordered By: ED PROVIDER on 09-12-2022 Urobilinogen Ql (U) Normal mg/dl Normal [facility] Culture, urineOrdered By: Ra cb Frost on 09-07-2022 Bacteria identified Cx Nom (U) Positive [facility] Absolute lymphocyte countOrd ered By: Felisha Frost on 09-05-2022 Lymphocytes Auto (Unsp spec) [#/Vol] 2.05 10*3/uL 0.83-4.51 [facility] Basophil percentageOrdered B y: Felisha Frost on 09-05-2022 Basophil percentage 0-5 SEEN /hpf 0-5 [facility] Basophils/100 WBC (Bld) 0.6 % 0-1 [facility] Bilirubin [Mass/Vol] 1.00 mg/dL 0.20-1.00 [facility] Comment on above: For patients on eltr ombopag therapy, use of Dimension Odon TBIL is not recommended. Chloride [Moles/Vol] 100 mmol/L 98-107 [facility] Eosinophils/100 WBC (Bld) 3.0 % 0-5 [facility] Glucose [Mass/Vol] 100 mg/dL 74-106 [facility] Comment on above: Fasting Glucose resu lt from 100 to 125 mg/dL suggests IMPAIRED HOMEOSTASIS per A.D.A. criteria. Neutrophils (Bld) [#/Vol] 5.7 10*3/uL 2.0-7.7 [facility] Neutrophils/100 WBC (Bld) 65.3 % 47-70 [facility] Potassium [Moles/Vol] 4.1 mmol/L 3.5-5.1 [facility] Protein [Mass/Vol] 6.9 g/dL 6.4-8.2 [facility] Sodium [Moles/Vol] 138 mmol/L 136-145 [facility] WBC (Bld) [#/Vol] 8.7 10*3/uL 4.4-11.0 [facility] Bilirubin Test strip Ql (U)O rdered By: Felisha Frost on 09-05-2022 Bilirubin Ql (U) Negative Negative [facility] Blood erythrocytes count (nu mber/volume)Ordered By: Felisha Frost on 09-05-2022 RBC (Bld) [#/Vol] 4.40 10*6/uL 4.2-5.4 [facility] Blood hemoglobin measurement (mass/volume)Ordered By: Felisha Frost on 09-05-2022 Hemoglobin (Bld) [Mass/Vol] 13.0 g/dL 12.0-15.0 [facility] Blood lymphocytes/100 leukoc ytesOrdered By: Felisha Frost on 09-05-2022 Lymphocytes/100 WBC (Bld) 23.6 % 19-41 [facility] Blood monocytes/100 leukocyt esOrdered By: Felisha Frost on 09-05-2022 Monocytes/100 WBC (Bld) 6.9 % 0-10 [facility] Blood platelet mean volumeOr dered By: Felisha Frost on 09-05-2022 Platelet mean volume (Bld) [Entitic vol] 10.7 fL 6.2-12.0 [facility] Determination of erythrocyte mean corpuscular volume (MCV)Ordered By: Felisha Frost on 09-05-2022 MCV (RBC) [Entitic vol] 93.0 fL 81-99 [facility] Hematocrit Auto (Bld) [Volum e fraction]Ordered By: Felisha Frost on 09-05-2022 Hematocrit (Bld) [Volume fraction] 40.9 % 37-47 [facility] Ketones Test strip Ql (U)Ord ered By: Felisha Frost on 09-05-2022 Ketones Ql (U) 5 mg/dl Negative [facility] Laboratory - Chemistry and C hemistry - challengeOrdered By: Felishafredi Frost on 09-05-2022 ALP [Catalytic activity/Vol] 88 U/L 45-117 [facility] ALT [Catalytic activity/Vol] 23 U/L 13-56 [facility] CO2 [Moles/Vol] 27.0 mmol/L 21.0-32.0 [facility] Globulin (S) [Mass/Vol] 3.1 g/dL 2.2-4.2 [facility] Urea nitrogen/Creatinine [Mass ratio] 26.1 mg/mg 10-20 [facility] Laboratory - Chemistry and C hemistry - challengeOrdered By: Dr. Tierney on 09-05-2022 Free T4 [Mass/Vol] 1.17 ng/dL 0.76-1.46 [facility] Laboratory - Hematology and Cell countsOrdered By: Felishafredi Frost on 09-05-2022 Erythrocyte distribution width (RBC) [Entitic vol] 45.8 fL 35.1-43.9 [facility] Erythrocyte distribution width (RBC) [Ratio] 13.4 % 11.6-14.6 [facility] Immature granulocytes/100 WBC (Bld) 0.600 % 0.0-0.9 [facility] Comment on above: IG% - Immature Granu locytes (promyelocytes, myelocytes and metamyelocytes) > 1% indicates that a LEFT SHIFT is Present. MCH (RBC) [Entitic mass] 29.5 pg 27.0-32.0 [facility] Nucleated RBC/100 WBC (Bld) [Ratio] 0 % 0-5 [facility] MCHC Auto (RBC) [Mass/Vol]Or dered By: Felisha Frost on 09-05-2022 MCHC (RBC) [Mass/Vol] 31.8 g/dL 32-36 [facility] Mucus LM Ql (Urine sed)Order ed By: Felisha Frost on 09-05-2022 Mucus Ql (Urine sed) 0 SEEN /hpf [facility] Nitrite Test strip Ql (U)Ord ered By: Felisha Frost on 09-05-2022 Nitrite Ql (U) Negative Negative [facility] No Panel InformationOrdered By: Felisha Frost on 09-05-2022 Estimated GFR (MDRD) Amer 106 mL/min >60 [facility] Comment on above: GFR Calc Estimated GFR (MDRD) Non-Af Amer 88 mL/min >60 [facility] Comment on above: Non- GFR Calc No Panel InformationOrdered By: Dr. Tierney on 09-05-2022 Thyroid Stimulating Hormone (TSH) 6.77 uIU/mL 0.358-3.74 [facility] Platelets bldOrdered By: Kan Frost on 09-05-2022 Platelets (Bld) [#/Vol] 298 10*3/uL 150-450 [facility] Protein Test strip Ql (U)Ord ered By: Felisha Frost on 09-05-2022 Protein Ql (U) 15 mg/dl Negative [facility] Serum or plasma albumin torres urement (mass/volume)Ordered By: Felisha Frost on 09-05-2022 Albumin [Mass/Vol] 3.8 g/dL 3.2-5.0 [facility] Serum or plasma albumin/glob ulin mass ratioOrdered By: Felisha Frost on 09-05-2022 Albumin/Globulin [Mass ratio] 1.2 {ratio} 0.9-2.4 [facility] Serum or plasma calcium torres urement (mass/volume)Ordered By: Felisha Frost on 09-05-2022 Calcium [Mass/Vol] 9.6 mg/dL 8.5-10.1 [facility] Serum or plasma creatinine m easurement (mass/volume)Ordered By: Felisha Frost on 09-05-2022 Creatinine [Mass/Vol] 0.73 mg/dL 0.55-1.02 [facility] Comment on above: The validity of the calculated GFR & GFRAA in patients over 70 years has not been determined. Clinical correlation is essential. Serum or plasma urea nitroge n measurement (mass/volume)Ordered By: Felisha Frost on 09-05-2022 Urea nitrogen [Mass/Vol] 19 mg/dL 7-18 [facility] Squamous epithelial cells de tection in urine sediment by light microscopyOrdered By: Felisha Frost on 09-05-2022 Epithelial cells.squamous LM Ql (Urine sed) 0-5 SEEN /hpf 5-10 [facility] Thin prep Papanicolaou smear with manual screeningOrdered By: Felisha Frost on 09-05-2022 Thin prep Papanicolaou smear with manual screening 16 U/L 15-37 [facility] Thin prep Papanicolaou smear with manual screening 11 5-15 [facility] Urine blood detectionOrdered By: Felisha Frost on 09-05-2022 RBC Ql (U) Negative Negative [facility] RBC Ql (U) 0 SEEN /hpf 0-5 [facility] Urine clarityOrdered By: Kan Frost on 09-05-2022 Clarity (U) Clear Clear [facility] Urine color determinationOrd ered By: Felisha Frost on 09-05-2022 Color (U) Yellow Yellow [facility] Urine glucose detectionOrder ed By: Felisha Frost on 09-05-2022 Glucose Ql (U) Normal mg/dl Normal [facility] Urine leukocyte esterase det ection by dipstickOrdered By: Felisha Frost on 09-05-2022 Leukocyte esterase Test strip Ql (U) 100 /ul Negative [facility] Urine pHOrdered By: Felisha Frost on 09-05-2022 pH (U) 5.0 [pH] 5.0 - 8.0 [facility] Urine sediment bacteria coun t by microscopy (number/high power field)Ordered By: Felisha Frost on 09-05-2022 Bacteria LM.HPF (Urine sed) [#/Area] 1 /[HPF] None Seen [facility] Urine specific gravity measu rementOrdered By: Felisha Frost on 09-05-2022 Specific gravity (U) [Rel density] 1.025 1.002-1.030 [facility] Urobilinogen Auto test strip Ql (U)Ordered By: Felisha Frost on 09-05-2022 Urobilinogen Ql (U) Normal mg/dl Normal [facility] Culture, urineOrdered By: Ra cb Frost on 08-31-2022 Bacteria identified Cx Nom (U) Positive [facility] Basophil percentageOrdered B y: Felisha Frost on 08-29-2022 Basophil percentage 0-5 SEEN /hpf 0-5 [facility] Bilirubin Test strip Ql (U)O rdered By: Felisha Frost on 08-29-2022 Bilirubin Ql (U) 3 mg/dL Negative [facility] Comment on above: COLOR OF URINE MAY A FFECT DIPSTICK RESULTS. Ketones Test strip Ql (U)Ord ered By: Felisha Frost on 08-29-2022 Ketones Ql (U) Negative Negative [facility] Mucus LM Ql (Urine sed)Order ed By: Felisha Frost on 08-29-2022 Mucus Ql (Urine sed) 0 SEEN /hpf [facility] Nitrite Test strip Ql (U)Ord ered By: Felisha Frost on 08-29-2022 Nitrite Ql (U) Positive Negative [facility] Protein Test strip Ql (U)Ord ered By: Felisha Frost on 08-29-2022 Protein Ql (U) 15 mg/dl Negative [facility] Squamous epithelial cells de tection in urine sediment by light microscopyOrdered By: Felisha Frost on 08-29-2022 Epithelial cells.squamous LM Ql (Urine sed) 0-5 SEEN /hpf 5-10 [facility] Urine blood detectionOrdered By: Felisha Frost on 08-29-2022 RBC Ql (U) Negative Negative [facility] RBC Ql (U) 0-5 SEEN /hpf 0-5 [facility] Urine clarityOrdered By: Kan Frost on 08-29-2022 Clarity (U) Clear Clear [facility] Urine color determinationOrd ered By: Felisha Frost on 08-29-2022 Color (U) SEE COMMENT BELOW Yellow [facility] Comment on above: Visual Urine Color: ORANGE Urine glucose detectionOrder ed By: Felisha Frost on 08-29-2022 Glucose Ql (U) Normal mg/dl Normal [facility] Urine leukocyte esterase det ection by dipstickOrdered By: Felisha Frost on 08-29-2022 Leukocyte esterase Test strip Ql (U) Negative Negative [facility] Urine pHOrdered By: Felisha Frost on 08-29-2022 pH (U) 5.0 [pH] 5.0 - 8.0 [facility] Urine sediment bacteria coun t by microscopy (number/high power field)Ordered By: Felisha Frost on 08-29-2022 Bacteria LM.HPF (Urine sed) [#/Area] 0 /[HPF] None Seen [facility] Urine specific gravity measu rementOrdered By: Felisha Frost on 08-29-2022 Specific gravity (U) [Rel density] 1.015 1.002-1.030 [facility] Urobilinogen Auto test strip Ql (U)Ordered By: Felisha Frost on 08-29-2022 Urobilinogen Ql (U) 8 mg/dl Normal [facility] Absolute lymphocyte counton 02-09-2022 Lymphocytes Auto (Unsp spec) [#/Vol] 2.25 10*3/uL 0.83-4.51 [facility] Work Phone: Basophil percentageon 2021 Basophils/100 WBC (Bld) 0.6 % 0-1 [facility] Work Phone: Bilirubin [Mass/Vol] 0.90 mg/dL 0.20-1.00 [facility] Work Phone: Comment on above: For patients on eltr ombopag therapy, use of Dimension Odon TBIL is not recommended. Chloride [Moles/Vol] 105 mmol/L 98-107 [facility] Work Phone: Cholesterol [Mass/Vol] 188 mg/dL <200 [facility] Work Phone: [phone] Comment on above: <200 mg/dL Desirable 200-240 mg/dL Borderline >240 mg/dL High Risk Eosinophils/100 WBC (Bld) 2.6 % 0-5 [facility] Work Phone: [phone] Glucose [Mass/Vol] 98 mg/dL 74-106 [facility] Work Phone: [phone] Neutrophils (Bld) [#/Vol] 5.3 10*3/uL 2.0-7.7 [facility] Work Phone: Neutrophils/100 WBC (Bld) 61.5 % 47-70 [facility] Work Phone: [phone] Potassium [Moles/Vol] 3.9 mmol/L 3.5-5.1 [facility] Work Phone: [phone] Protein [Mass/Vol] 7.2 g/dL 6.4-8.2 [facility] Work Phone: [phone] Sodium [Moles/Vol] 140 mmol/L 136-145 [facility] Work Phone: [phone] Triglyceride [Mass/Vol] 314 mg/dL <199 [facility] Work Phone: [phone] Comment on above: The drugs N-Acetylcy steine and Metamizole may falsely depress this assay.Serum Triglycerides Reference Interval Normal <150 mg/dL Borderline high 150 - 199 mg/dL High 200 - 499 mg/dL Very High > or = 500 mg/dL WBC (Bld) [#/Vol] 8.5 10*3/uL 4.4-11.0 [facility] Work Phone: [phone] Blood erythrocytes count (nu mber/volume)on 02-09-2022 RBC (Bld) [#/Vol] 4.33 10*6/uL 4.2-5.4 [facility] Work Phone: [phone] Blood hemoglobin measurement (mass/volume)on 02-09-2022 Hemoglobin (Bld) [Mass/Vol] 13.0 g/dL 12.0-15.0 [facility] Work Phone: Blood lymphocytes/100 leukoc yteson 02-09-2022 Lymphocytes/100 WBC (Bld) 26.3 % 19-41 [facility] Work Phone: Blood monocytes/100 leukocyt eson 02-09-2022 Monocytes/100 WBC (Bld) 8.3 % 0-10 [facility] Work Phone: Blood platelet mean volumeon 02-09-2022 Platelet mean volume (Bld) [Entitic vol] 10.7 fL 6.2-12.0 [facility] Work Phone: Determination of erythrocyte mean corpuscular volume (MCV)on 02-09-2022 MCV (RBC) [Entitic vol] 93.8 fL 81-99 [facility] Work Phone: Direct bilirubinon Bilirubin.direct [Mass/Vol] 0.16 mg/dL 0.00-0.30 [facility] Work Phone: Hematocrit Auto (Bld) [Volum e fraction]on 02-09-2022 Hematocrit (Bld) [Volume fraction] 40.6 % 37-47 [facility] Work Phone: Laboratory - Chemistry and C hemistry - challengeon 02-09-2022 Cobalamin (Vitamin B12) [Mass/Vol] 356 pg/mL 211-911 [facility] Work Phone: Free T4 [Mass/Vol] 1.12 ng/dL 0.76-1.46 [facility] Work Phone: ALP [Catalytic activity/Vol] 88 U/L 45-117 [facility] Work Phone: ALT [Catalytic activity/Vol] 18 U/L 13-56 [facility] Work Phone: CO2 [Moles/Vol] 28.0 mmol/L 21.0-32.0 [facility] Work Phone: Globulin (S) [Mass/Vol] 3.5 g/dL 2.2-4.2 [facility] Work Phone: [phone] Urea nitrogen/Creatinine [Mass ratio] 20.2 mg/mg 10-20 [facility] Work Phone: [phone] Laboratory - Hematology and Cell countson 02-09-2022 Erythrocyte distribution width (RBC) [Entitic vol] 45.9 fL 35.1-43.9 [facility] Work Phone: [phone] Erythrocyte distribution width (RBC) [Ratio] 13.3 % 11.6-14.6 [facility] Work Phone: [phone] Immature granulocytes/100 WBC (Bld) 0.700 % 0.0-0.9 [facility] Work Phone: [phone] Comment on above: IG% - Immature Granu locytes (promyelocytes, myelocytes and metamyelocytes) > 1% indicates that a LEFT SHIFT is Present. MCH (RBC) [Entitic mass] 30.0 pg 27.0-32.0 [facility] Work Phone: [phone] Nucleated RBC/100 WBC (Bld) [Ratio] 0 % 0-5 [facility] Work Phone: [phone] MCHC Auto (RBC) [Mass/Vol]on 02-09-2022 MCHC (RBC) [Mass/Vol] 32.0 g/dL 32-36 [facility] Work Phone: [phone] No Panel Informationon 02-09 Thyroid Stimulating Hormone (TSH) 5.85 uIU/mL 0.358-3.74 [facility] Work Phone: [phone] Estimated GFR (MDRD) Amer 97 mL/min >60 [facility] Work Phone: [phone] Comment on above: GFR Calc Estimated GFR (MDRD) Non-Af Amer 80 mL/min >60 [facility] Work Phone: [phone] Comment on above: Non- GFR Calc Platelets bldon 02-09-2022 Platelets (Bld) [#/Vol] 291 10*3/uL 150-450 [facility] Work Phone: [phone] Serum or plasma albumin torres urement (mass/volume)on 02-09-2022 Albumin [Mass/Vol] 3.7 g/dL 3.2-5.0 [facility] Work Phone: Serum or plasma albumin/glob ulin mass ratioon 02-09-2022 Albumin/Globulin [Mass ratio] 1.1 {ratio} 0.9-2.4 [facility] Work Phone: Serum or plasma calcium torres urement (mass/volume)on 02-09-2022 Calcium [Mass/Vol] 9.3 mg/dL 8.5-10.1 [facility] Work Phone: Serum or plasma cholesterol in HDL measurement (mass/volume)on 02-09-2022 Cholesterol in HDL [Mass/Vol] 42 mg/dL >40 [facility] Work Phone: Comment on above: The drugs N-Acetylcy steine and Metamizole may falsely depress this assay. Reference Range HDL <40 mg/dL Low HDL Cholesterol HDL >or= 60 mg/dL High HDL Cholesterol Serum or plasma cholesterol in VLDL measurement (mass/volume)on 02-09-2022 Cholesterol in VLDL [Mass/Vol] 63 mg/dL 5-40 [facility] Work Phone: Serum or plasma creatinine m easurement (mass/volume)on 02-09-2022 Creatinine [Mass/Vol] 0.79 mg/dL 0.55-1.02 [facility] Work Phone: Comment on above: The validity of the calculated GFR & GFRAA in patients over 70 years has not been determined. Clinical correlation is essential. Serum or plasma low density lipoprotein (LDL) cholesterol measurement (mass/volume)on 02-09-2022 Cholesterol in LDL [Mass/Vol] 83 mg/dL 0-130 [facility] Work Phone: Serum or plasma urea nitroge n measurement (mass/volume)on 02-09-2022 Urea nitrogen [Mass/Vol] 16 mg/dL 7-18 [facility] Work Phone: Thin prep Papanicolaou smear with manual screeningon 02-09-2022 Thin prep Papanicolaou smear with manual screening 13 U/L 15-37 [facility] Work Phone: Thin prep Papanicolaou smear with manual screening 7 5-15 [facility] Work Phone: CNOVon 11-23-2020 CNOV Office Visit (ENAGST ) SHAR DANIELS ([id number]) 1965 F Date Time Provider Department 11/23/20 4:00 PM ALVARO WISDOM During your visit today, we recorded the following information about you: Pulse Blood pressure Weight Height 61/minute 152/78 107.2 kg 1.575 m Alvaro Wisdom MD 11/23/2020 4:30 PM Signed . [facility] [address] [facility], [address] Endocrinology [address], [address] [place] [address] Patient's name: Shar Daniels Patient's date of : 1965 Date of encounter: 11/23/2020 History of present illness: Shar Daniels is a 55 year old female who presents for follow up of an endocrinology issue. Thyroid: 1984: Around this time she was told underactive thyroid and started on Synthroid. 2014: Stated therapeutic lifestyle changes with weight loss achived. 08/31/2015: TSH 12.41 (0.36-3.74 mcIU/mL), free T4 0.88 (0.76-1.46 ng/dL), on levothyroxine 175, possibly increased to 200. This was eventually lowered back to 175 mcg daily. Unclear dates. 10/29/2015: Ultrasound of thyroid gland, at outside hospital: Markedly atrophic gland. Right lobe: 16 mm in length, Left lobe 18 mm in length, with heterogeneous architecture. There is a tiny cystic structure present in the inferior pole of the left lobe 3.4 mm. 11/11/2015: TSH 0.18 (0.36-3.74 mcIU/mL), free T4 1.53 (0.76-1.46 ng/dL), Total WBC normal. On levothyroxine 175 mcg daily. Her dose was decreased to levothyroxine 137 mcg daily. 11/11/2015: Thyroid peroxidase antibodies 4 (<9 intUnt/mL), Thyroglobulin antibodies 2 (<1 IntUnt/mL), 11/11/2015: Thyroid Stimulating Immunoglobulin (TSI) 30 (<140 %baseline), 11/2015: Initial consultation here. TSH 0.228 (0.358-3.740 uIU/mL), free T4 1.33 (0.76-1.46 ng/dL), free T3 1.8 (2.2-4.0 pg/ml), on levothyroxine 137 mcg daily (for less than a month). I changed her to a T4:T3 regimen, with levothyroxine 137 mcg daily with Liothyronine 5 mcg twice daily. 12/2015: AM cortisol 8.1 ug/dL. 12/07/2015: Patient reported GI issues with her new regimen. Unclear causality, but I had her stop the Liothyronine. She later reported she never did this. 03/2016: TSH 0.457 (0.358-3.740 uIU/mL), free T4 1.19 (0.76-1.46 ng/dL), free T3 2.0 (2.2-4.0 pg/mL), On levothyroxine 137 mcg daily with liothyronine 5 mcg twice daily. 06/2016: TSH 0.180 (0.358-3.740 uIU/mL), free T4 1.23 (0.76-1.46 ng/dL), free T3 2.8 (2.2-4.0 pg/mL), on levothyroxine 137 mcg daily with liothyronine 5 mcg twice daily. I lowered her levothyroxine to 125 mcg daily, and kept the liothyronine at 5 mcg twice daily. 01/2017: TSH 2.180 (0.358-3.740 uIU/mL), free T4 1.08 (0.76-1.46 ng/dL), free T3 2.1 (2.2-4.0 pg/mL), on levothyroxine 125 mcg daily and liothyronine 5 mcg twice daily. I changed the liothyronine to 10 mcg in AM and 5 mcg in PM. 07/2017: TSH 3.740 (0.358-3.740 uIU/mL), free T4 0.98 (0.76-1.46 ng/dL), free T3 3.0 (2.2-4.0 pg/mL), on levothyroxine 125 mcg daily and liothyronine 10 mcg in AM and 5 mcg in PM ? but missing PM dose often. I increased her levothyroxine to 137 mcg daily and stressed compliance with her PM liothyronine. 05/2018: TSH 0.044 (0.358-3.740 uIU/mL), free T4 1.34 (0.76-1.46 ng/dL), free T3 3.4 (2.2-4.0 pg/mL), on levothyroxine 137 mcg daily and liothyronine 10 mcg in am and 5 mcg in pm. I lowered her levothyroxine to 125 mcg daily. The liothyronine was kept the same. 06/2019: TSH 0.665 (0.358 - 3.740 uIU/mL), free T4 1.05 (0.76-1.46 ng/dL), free T3 2.5 (2.3-4.1 pg/mL), on levothyroxine 125 mcg daily and liothyronine 10 mcg in AM and 5 mcg in PM. 05/2020: TSH 1.170 (0.270-4.200 uIU/mL), free T4 1.3 (0.9-1.7 ng/dL), free T3 2.1 (2.3-4.1 pg/mL), on levothyroxine 125 mcg dailiy and liothyronine 10 mcg in AM and 5 mcg in PM. Interval history: The patient now returns for re-evaluation and follow-up. The above history was re-confirmed. When asked how she feels overall, she responded I am just tired Some falls lately- to has assessment soon with Primary Care Physician. She remains on a T4:T3 regimen with levothyroxine, dosed as 125 micrograms daily, and liothyronine, dose as 10 micrograms dosed in AM and 5 mcg in PM. She takes the levothyroxine in AM. Coffee is ingested around 1+ hour(s) after the levothyroxine. Other meds around the time of the levothyroxine: liothyronine. She takes the first liothyronine in AM. She takes the afternoon dose of liothyronine supper. No overt dysphagia of solids, liquids or pills. No overt globus sensation in neck. No new or existing hoarseness. No anterior neck compression / feeling of external pressure. Denies clearing of throat. Denies cough. Biotin use: Not using any over-the-c (more content not included)... Normal [facility] CNOVon 05-21-2020 CN Office Visit (ENAGST ) SHAR DANIELS ([id number]) 1965 F Date Time Provider Department 05/21/20 3:00 PM ALVARO WISDOM During your visit today, we recorded the following information about you: Pulse Blood pressure Weight Height 72/minute 135/78 104.4 kg 1.575 m Alvaro Wisdom MD 05/22/2020 1:01 PM Addendum . [facility] [place] [address] [facility] [facility] [facility], [address] [place], [place] [id number] [place] [address] General Endocrinology - [address], [address] [place] [address] Patient's name: Shar Daniels Patient's date of : 1965 Date of encounter: 05/21/2020 History of present illness: Shar Daniels is a 54 year old female who presents for follow up of an endocrinology issue. Thyroid: 1984: Around this time she was told underactive thyroid and started on Synthroid. 2014: Stated therapeutic lifestyle changes with weight loss achived. 08/31/2015: TSH 12.41 (0.36-3.74 mcIU/mL), free T4 0.88 (0.76-1.46 ng/dL), on levothyroxine 175, possibly increased to 200. This was eventually lowered back to 175 mcg daily. Unclear dates. 10/29/2015: Ultrasound of thyroid gland, at outside hospital: Markedly atrophic gland. Right lobe: 16 mm in length, Left lobe 18 mm in length, with heterogeneous architecture. There is a tiny cystic structure present in the inferior pole of the left lobe 3.4 mm. 11/11/2015: TSH 0.18 (0.36-3.74 mcIU/mL), free T4 1.53 (0.76-1.46 ng/dL), Total WBC normal. On levothyroxine 175 mcg daily. Her dose was decreased to levothyroxine 137 mcg daily. 11/11/2015: Thyroid peroxidase antibodies 4 (<9 intUnt/mL), Thyroglobulin antibodies 2 (<1 IntUnt/mL), 11/11/2015: Thyroid Stimulating Immunoglobulin (TSI) 30 (<140 %baseline), 11/2015: Initial consultation here. TSH 0.228 (0.358-3.740 uIU/mL), free T4 1.33 (0.76-1.46 ng/dL), free T3 1.8 (2.2-4.0 pg/ml), on levothyroxine 137 mcg daily (for less than a month). I changed her to a T4:T3 regimen, with levothyroxine 137 mcg daily with Liothyronine 5 mcg twice daily. 12/2015: AM cortisol 8.1 ug/dL. 12/07/2015: Patient reported GI issues with her new regimen. Unclear causality, but I had her stop the Liothyronine. She later reported she never did this. 03/2016: TSH 0.457 (0.358-3.740 uIU/mL), free T4 1.19 (0.76-1.46 ng/dL), free T3 2.0 (2.2-4.0 pg/mL), On levothyroxine 137 mcg daily with liothyronine 5 mcg twice daily. 06/2016: TSH 0.180 (0.358-3.740 uIU/mL), free T4 1.23 (0.76-1.46 ng/dL), free T3 2.8 (2.2-4.0 pg/mL), on levothyroxine 137 mcg daily with liothyronine 5 mcg twice daily. I lowered her levothyroxine to 125 mcg daily, and kept the liothyronine at 5 mcg twice daily. 01/2017: TSH 2.180 (0.358-3.740 uIU/mL), free T4 1.08 (0.76-1.46 ng/dL), free T3 2.1 (2.2-4.0 pg/mL), on levothyroxine 125 mcg daily and liothyronine 5 mcg twice daily. I changed the liothyronine to 10 mcg in AM and 5 mcg in PM. 07/2017: TSH 3.740 (0.358-3.740 uIU/mL), free T4 0.98 (0.76-1.46 ng/dL), free T3 3.0 (2.2-4.0 pg/mL), on levothyroxine 125 mcg daily and liothyronine 10 mcg in AM and 5 mcg in PM ? but missing PM dose often. I increased her levothyroxine to 137 mcg daily and stressed compliance with her PM liothyronine. 05/2018: TSH 0.044 (0.358-3.740 uIU/mL), free T4 1.34 (0.76-1.46 ng/dL), free T3 3.4 (2.2-4.0 pg/mL), on levothyroxine 137 mcg daily and liothyronine 10 mcg in am and 5 mcg in pm. I lowered her levothyroxine to 125 mcg daily. The liothyronine was kept the same. 06/2019: TSH 0.665 (0.358 - 3.740 uIU/mL), free T4 1.05 (0.76-1.46 ng/dL), free T3 2.5 (2.3-4.1 pg/mL), on levothyroxine 125 mcg daily and liothyronine 10 mcg in AM and 5 mcg in PM. Interval history: The patient now returns for re-evaluation and follow-up. The above history was re-confirmed. When asked how she feels overall, she responded ok but still with fatigue. She remains on a T4:T3 regimen with levothyroxine, dosed as 125 micrograms daily, and liothyronine, dose as 10 micrograms dosed in the AM, and 5 micrograms dosed in the PM. She takes the levothyroxine 9 AM with her liothyronine. Coffee is ingested around 1+ hour(s) after the levothyroxine. Other meds around the time of the levothyroxine: liothyronine She takes the first liothyronine around 9 am when she wakes. She takes the afternoon dose of liothyronine 6 pm. Iron is around 6-9 pm. No overt dysphagia of solids, liquids or pills. No overt globus sensation in neck. No new or existing hoarseness. No anterior neck compression / feeling of external pressure. Denies clearing of throat. Denies cough. Biotin use: Not using any [id number] Biotin supplements, or multi-vitamins with large doses of biotin such as Hair/Skin/Nail formulations. Not using any B-complex vitamin prepar (more content not included)... Normal [facility] FERRITIN BLDon 05-21-2020 Ferritin [Mass/Vol] 152.8 ng/mL Normal 14.7-205.1 [facility] Comment on above: Order Comment: Speci men Type: BLOOD SPECIMEN Performed By: #### F ERR, 3016-3 #### [facility] CLIA [id number] [place] [address] IRON + TIBCon 05-21-2020 Iron [Mass/Vol] 50 ug/dL Normal 41-186 [facility] Comment on above: Order Comment: Speci men Type: BLOOD SPECIMEN Performed By: #### I PATRICIA, FREET3, FT4 #### [facility] CLIA [id number] [address] [place] [address] Iron binding capacity [Mass/Vol] 309 ug/dL Normal 232-386 [facility] Comment on above: Order Comment: Speci men Type: BLOOD SPECIMEN Performed By: #### I PATRICIA, FREET3, FT4 #### [facility] CLIA [id number] [address] [place] [address] Iron saturation [Mass fraction] 16 % Normal 15-57 [facility] Comment on above: Order Comment: Speci men Type: BLOOD SPECIMEN Performed By: #### I PATRICIA, FREET3, FT4 #### [facility] CLIA [id number] [address] [place] [address] Otheron 05-21-2020 Ferritin [Mass/Vol] 152.8 ng/mL 14.7 - 2 05.1 ng/mL [facility] T3 FREE BLDon 05-21-2020 Free T3 [Mass/Vol] 2.1 pg/mL Low 2.3-4.1 [facility] Comment on above: Order Comment: Speci men Type: BLOOD SPECIMEN Performed By: #### I PATRICIA, FREET3, FT4 #### [facility] CLIA [id number] [address] [place] [address] T4 FREE/FREE THYROXon 2019 Free T4 [Mass/Vol] 1.3 ng/dL Normal 0.9-1.7 [facility] Comment on above: Order Comment: Speci men Type: BLOOD SPECIMEN Performed By: #### I PATRICIA, FREET3, FT4 #### [facility] CLIA [id number] [address] [place] [address] TSH SerPl-aCncon 05-21-2020 TSH Qn 1.170 m[IU]/L Normal 0.270-4.200 [facility] Comment on above: Order Comment: Speci men Type: BLOOD SPECIMEN Performed By: #### F ERR, 3016-3 #### [facility] CLIA [id number] [address] [place] [address] Thyroidon 05-21-2020 TSH Qn 1.170 uU/mL 0.270 - 4.200 uU/mL [facility] Ferritinon 06-11-2019 Ferritin [Mass/Vol] 91.50 ng/mL Normal 8.00-252.00 [facility] Comment on above: Performed By: #### F ERR #### [facility] [address] [place], [place] [address] Free T3on 06-11-2019 Free T3 [Mass/Vol] 2.5 pg/mL Normal 2.2-4.0 [facility] Comment on above: Performed By: #### F T3A #### [facility] [address] [place] [address] Free Thyroxineon 06-11-2019 Free T4 [Mass/Vol] 1.05 ng/dL Normal 0.76-1.46 [facility] Comment on above: Performed By: #### F T4 #### [facility] [address] [place] [address] TSH, 3rd generationon 2018 TSH, 3rd generation 0.665 uIU/mL Normal 0.358-3.740 [facility] Comment on above: Performed By: #### T SH3 #### [facility] [address] [place] [address] XR ELBOW MINIMUM 3 VIEWS LEF Ton 02-24-2017 XR ELBOW MINIMUM 3 VIEWS LEFT ORIGINALLEFT elbow 3 views HISTORY: Pain COMPARISON: None Small spurs are present at the radial head and at the medial aspect of the elbow joint. There is some ulnohumeral degenerative change with small spurs. No fracture, dislocation or joint fluid identified. Interpreted By: Alvaro Smith MDPreliminary Report By: Alvaro Smith MDElectronically Signed By: Alvaro Smith MD Dictated Date: 02/24/2017 10:34:15 AM Prelim Date: 02/24/2017 10:34:15 AM Sign Date: 02/24/2017 10:34:46 AM [facility] Vital Signs Date Time Vital Sign Value Performing Clinician Facility 12-19-2024 09:59-0400 Body height 157.48 cm Susanna NICHOLASC Work Phone: [facility] 12-19-2024 09:59-0400 Body mass index (BMI) [Ratio] 35.1 kg/m2 Susanna De NP-C Work Phone: [facility] 12-19-2024 09:59-0400 Body weight 87.08 kg Susanna NICHOLASC Work Phone: 0(455)[phone] [place] [address] 12-19-2024 09:59-0400 Diastolic blood pressure 78 mm[Hg] Susanna De [employer] Work Phone: 9(264)789-848489 [place] [address] 12-19-2024 09:59-0400 Heart rate 64 /min Susanna De [employer] Work Phone: 9(223)725-680089 [place] [address] 12-19-2024 09:59-0400 SaO2% (BldA) [Mass fraction] 97 % Susanna De [employer] Work Phone: 1(086)489-554189 [place] [address] 12-19-2024 09:59-0400 Systolic blood pressure 132 mm[Hg] Susanna De [employer] Work Phone: 7(876)573-552689 [place] [address] 10-31-2024 11:39-0400 Body mass index (BMI) [Ratio] 34.4 kg/m2 Susanna De [employer] Work Phone: 8(564)865-745189 [place] [address] 10-31-2024 11:39-0400 Body temperature 98.1 [degF] Susanna De [employer] Work Phone: 9(772)374-359589 [place] [address] 10-31-2024 11:39-0400 Body weight 85.27 kg Susanna De [employer] Work Phone: 7(898)377-280889 [place] [address] 10-31-2024 11:39-0400 Diastolic blood pressure 62 mm[Hg] Susanna De [employer] Work Phone: 1(262)394-765989 [place] [address] 10-31-2024 11:39-0400 Heart rate 80 /min Susanna De [employer] Work Phone: 6(843)450-873789 [place] [address] 10-31-2024 11:39-0400 SaO2% (BldA) [Mass fraction] 99 % Susanna De [employer] Work Phone: 6(771)960-010589 [place] [address] 10-31-2024 11:39-0400 Systolic blood pressure 108 mm[Hg] Susanna De [employer] Work Phone: 4(467)863-293031 [address] 03-29-2024 08:43-0400 Body height 157.[address] Work Phone: [facility] 03-29-2024 08:43-0400 Body mass index (BMI) [Ratio] 34.74 kg/m2 Lissette Xavier RD Work Phone: [facility] 03-29-2024 08:43-0400 Body weight 86.[address] Work Phone: [facility] Comment on above: patient stated 10-13-2023 09:25-0500 Body height 157.[address] Work Phone: [facility] 10-13-2023 09:25-0500 Body weight 86.[address] Work Phone: [facility] 09-08-2023 11:20-0500 Body height 157.5 cm Micki Bulow [employer].HEALTH MANAGEMENT CONSULTANT Work Phone: [facility] 09-08-2023 11:20-0500 Body weight 85.73 kg Micki Bulow [employer].HEALTH MANAGEMENT CONSULTANT Work Phone: [facility] 07-07-2023 11:34-0500 Body height 157.[address] Work Phone: [facility] 07-07-2023 11:34-0500 Body weight 90.[address] Work Phone: [facility] 06-27-2023 17:12-0500 Diastolic blood pressure 85 mm[Hg] Dr. Camilla Castaneda Work Phone: [facility] 06-27-2023 17:12-0500 Heart rate 89 /min Dr. Camilla Castaneda Work Phone: [facility] 06-27-2023 17:12-0500 Respiratory rate 16 /min Dr. Camilla Castaneda Work Phone: [facility] 06-27-2023 17:12-0500 SaO2% (BldA) [Mass fraction] 96 % Dr. Camilla Castaneda Work Phone: [facility] 06-27-2023 17:12-0500 Systolic blood pressure 141 mm[Hg] Dr. Camilla Castaneda Work Phone: [facility] 06-27-2023 15:13-0500 Body height 157.[address] Camilla Castaneda Work Phone: [facility] 06-27-2023 15:13-0500 Body mass index (BMI) [Ratio] 37.6 kg/m2 Dr. Camilla Castaneda Work Phone: [facility] 06-27-2023 15:13-0500 Body temperature 97.5 [degF] Dr. Camilla Castaneda Work Phone: [facility] 06-27-2023 15:13-0500 Body weight 93.[address] Camilla Castaneda Work Phone: [facility] 06-14-2023 12:53-0500 Body height 157.[address] Work Phone: [facility] 06-14-2023 12:53-0500 Body weight 92.[address] Work Phone: [facility] 05-18-2023 11:10-0400 Body height 157.5 cm Pacc 6 Work Phone: [facility] 05-18-2023 11:10-0400 Body temperature 97.9 [degF] Pacc 6 Work Phone: [facility] 05-18-2023 11:10-0400 Body weight 102.51 kg Pacc 6 Work Phone: [facility] 05-18-2023 11:10-0400 Diastolic blood pressure 77 mm[Hg] Pacc 6 Work Phone: [facility] 05-18-2023 11:10-0400 Heart rate 61 /min Pacc 6 Work Phone: [facility] 05-18-2023 11:10-0400 Respiratory rate 18 /min Pacc 6 Work Phone: [facility] 05-18-2023 11:10-0400 SaO2% (BldA) [Mass fraction] 97 % [facility] 6 Work Phone: [facility] 05-18-2023 11:10-0400 Systolic blood pressure 129 mm[Hg] [facility] 6 Work Phone: [facility] 05-18-2023 09:28-0400 Body height 157.5 cm Tree Lynch MD Work Phone: [facility] 05-18-2023 09:28-0400 Body weight 102.6 kg Tree Lynch MD Work Phone: [facility] 05-18-2023 09:28-0400 Diastolic blood pressure 78 mm[Hg] Tree Lynch MD Work Phone: [facility] 05-18-2023 09:28-0400 Heart rate 64 /min Tree Lynch MD Work Phone: [facility] 05-18-2023 09:28-0400 Systolic blood pressure 133 mm[Hg] Tree Lynch MD Work Phone: [facility] 05-15-2023 11:14-0400 Body height 157.[address] Work Phone: [facility] 05-15-2023 11:14-0400 Body weight 99.[address] Work Phone: [facility] 03-10-2023 11:14-0400 Body weight 101.61 kg Jennifer Olguin PhD Work Phone: [facility] 01-27-2023 13:32-0400 Body height 157.[address] Camilla Castaneda Work Phone: [facility] 01-27-2023 13:32-0400 Body mass index (BMI) [Ratio] 42.7 kg/m2 Dr. Camilla Castaneda Work Phone: [facility] 01-27-2023 13:32-0400 Body weight 106.[address] Camilla Castaneda Work Phone: [facility] 01-27-2023 13:32-0400 Diastolic blood pressure 81 mm[Hg] Dr. Camilla Castaneda Work Phone: [facility] 01-27-2023 13:32-0400 Heart rate 69 /min Dr. Camilla Castaneda Work Phone: [facility] 01-27-2023 13:32-0400 Respiratory rate 18 /min Dr. Camilla Castaneda Work Phone: [facility] 01-27-2023 13:32-0400 Systolic blood pressure 123 mm[Hg] Dr. Camilla Castaneda Work Phone: [facility] 01-27-2023 09:54-0400 Body mass index (BMI) [Ratio] 43 kg/m2 Dr. Camilla Castaneda Work Phone: [facility] 01-27-2023 09:54-0400 Body temperature 97.6 [degF] Dr. Camilla Castaneda Work Phone: [facility] 01-27-2023 09:54-0400 Body weight 106.[address] Camilla Castaneda Work Phone: [facility] 01-27-2023 09:54-0400 Diastolic blood pressure 90 mm[Hg] Dr. Camilla Castaneda Work Phone: [facility] 01-27-2023 09:54-0400 Heart rate 73 /min Dr. Camilla Castaneda Work Phone: [facility] 01-27-2023 09:54-0400 Respiratory rate 16 /min Dr. Camilla Castaneda Work Phone: [facility] 01-27-2023 09:54-0400 SaO2% (BldA) [Mass fraction] 97 % Dr. Camilla Castaneda Work Phone: [facility] 01-27-2023 09:54-0400 Systolic blood pressure 130 mm[Hg] Dr. Camilla Castaneda Work Phone: [facility] 01-26-2023 15:59-0400 Body height 157.[address] Work Phone: [facility] 01-26-2023 15:59-0400 Body weight 102.[address] Work Phone: [facility] 12-01-2022 10:40-0400 Body temperature 98.4 [degF] Dr. Camilla Castaneda Work Phone: [facility] 12-01-2022 10:40-0400 Diastolic blood pressure 58 mm[Hg] Dr. Camilla Castaneda Work Phone: [facility] 12-01-2022 10:40-0400 Heart rate 70 /min Dr. Camilla Castaneda Work Phone: [facility] 12-01-2022 10:40-0400 Respiratory rate 16 /min Dr. Camilla Castaneda Work Phone: [facility] 12-01-2022 10:40-0400 SaO2% (BldA) [Mass fraction] 95 % Dr. Camilla Castaneda Work Phone: [facility] 12-01-2022 10:40-0400 Systolic blood pressure 95 mm[Hg] Dr. Camilla Castaneda Work Phone: [facility] 12-01-2022 05:10-0400 Body mass index (BMI) [Ratio] 42.8 kg/m2 Dr. Camilla Castaneda Work Phone: [facility] 12-01-2022 05:10-0400 Body weight 106.[address] Camilla Castaneda Work Phone: [facility] 11-30-2022 09:42-0400 Body height 157.[address] Camilla Castaneda Work Phone: [facility] 11-29-2022 15:35-0400 Body temperature 98.4 [degF] Dr. Camilla Castaneda Work Phone: [facility] 11-29-2022 15:35-0400 Diastolic blood pressure 97 mm[Hg] Dr. Camilla Castaneda Work Phone: [facility] 11-29-2022 15:35-0400 Heart rate 74 /min Dr. Camilla Castaneda Work Phone: [facility] 11-29-2022 15:35-0400 Respiratory rate 16 /min Dr. Camilla Castaneda Work Phone: [facility] 11-29-2022 15:35-0400 SaO2% (BldA) [Mass fraction] 95 % Dr. Camilla Castaneda Work Phone: [facility] 11-29-2022 15:35-0400 Systolic blood pressure 173 mm[Hg] Dr. Camilla Castaneda Work Phone: [facility] 11-29-2022 13:31-0400 Body height 157.[address] Camilla Castaneda Work Phone: [facility] 11-29-2022 13:31-0400 Body mass index (BMI) [Ratio] 44 kg/m2 Dr. Camilla Castaneda Work Phone: [facility] 11-29-2022 13:31-0400 Body weight 109.[address] Camilla Castaneda Work Phone: [facility] 11-09-2022 14:30-0400 Body mass index (BMI) [Ratio] 43.1 kg/m2 Dr. Camilla Castaneda Work Phone: [facility] 11-09-2022 14:30-0400 Body weight 107.[address] Camilla Castaneda Work Phone: [facility] 11-09-2022 14:30-0400 Diastolic blood pressure 87 mm[Hg] Dr. Camilla Castaneda Work Phone: [facility] 11-09-2022 14:30-0400 Systolic blood pressure 138 mm[Hg] Dr. Camilla Castaneda Work Phone: [facility] 09-30-2022 08:00-0500 Body temperature 97.1 [degF] Dr. Camilla Castaneda Work Phone: [facility] 09-30-2022 08:00-0500 Diastolic blood pressure 74 mm[Hg] Dr. Camilla Castaneda Work Phone: [facility] 09-30-2022 08:00-0500 Heart rate 57 /min Dr. Camilla Castaneda Work Phone: [facility] 09-30-2022 08:00-0500 Respiratory rate 16 /min Dr. Camilla Castaneda Work Phone: [facility] 09-30-2022 08:00-0500 SaO2% (BldA) [Mass fraction] 97 % Dr. Camilla Castaneda Work Phone: [facility] 09-30-2022 08:00-0500 Systolic blood pressure 120 mm[Hg] Dr. Camilla Castaneda Work Phone: [facility] 09-30-2022 07:02-0500 Body height 157.[address] Camilla Castaneda Work Phone: [facility] 09-30-2022 07:02-0500 Body mass index (BMI) [Ratio] 42.3 kg/m2 Dr. Camilla Castaneda Work Phone: [facility] 09-30-2022 07:02-0500 Body weight [address] Camilla Castaneda Work Phone: [facility] 09-29-2022 13:50-0500 Body mass index (BMI) [Ratio] 43.3 kg/m2 Dr. Camilla Castaneda Work Phone: [facility] 09-29-2022 13:50-0500 Body temperature 96.6 [degF] Dr. Camilla Castaneda Work Phone: [facility] 09-29-2022 13:50-0500 Body weight 107.[address] Camilla Castaneda Work Phone: [facility] 09-29-2022 13:50-0500 Diastolic blood pressure 84 mm[Hg] Dr. Camilla Castaneda Work Phone: [facility] 09-29-2022 13:50-0500 Heart rate 67 /min Dr. Camilla Castaneda Work Phone: [facility] 09-29-2022 13:50-0500 Respiratory rate 20 /min Dr. Camilla Castaneda Work Phone: [facility] 09-29-2022 13:50-0500 SaO2% (BldA) [Mass fraction] 95 % Dr. Camilla Castaneda Work Phone: [facility] 09-29-2022 13:50-0500 Systolic blood pressure 144 mm[Hg] Dr. Camilla Castaneda Work Phone: [facility] 09-12-2022 16:20-0500 Diastolic blood pressure 85 mm[Hg] Dr. Camilla Castaneda Work Phone: [facility] 09-12-2022 16:20-0500 Heart rate 76 /min Dr. Camilla Castaneda Work Phone: [facility] 09-12-2022 16:20-0500 Respiratory rate 14 /min Dr. Camilla Castaneda Work Phone: [facility] 09-12-2022 16:20-0500 SaO2% (BldA) [Mass fraction] 100 % Dr. Camilla Castaneda Work Phone: [facility] 09-12-2022 16:20-0500 Systolic blood pressure 147 mm[Hg] Dr. Camilla Castaneda Work Phone: [facility] 09-12-2022 11:57-0500 Body height 157.[address] Camilla Castaneda Work Phone: [facility] 09-12-2022 11:57-0500 Body mass index (BMI) [Ratio] 42.5 kg/m2 Dr. Camilla Castaneda Work Phone: [facility] 09-12-2022 11:57-0500 Body temperature 97.6 [degF] Dr. Camilla Castaneda Work Phone: [facility] 09-12-2022 11:57-0500 Body weight 105.[address] Camilla Castaneda Work Phone: [facility] 09-05-2022 13:34-0500 Body height 157.[address] Camilla Castaneda Work Phone: [facility] 09-05-2022 13:34-0500 Body mass index (BMI) [Ratio] 43.1 kg/m2 Dr. Camilla Castaneda Work Phone: [facility] 09-05-2022 13:34-0500 Body temperature 96.2 [degF] Dr. Camilla Castaneda Work Phone: [facility] 09-05-2022 13:34-0500 Body weight 107.[address] Camilla Castaneda Work Phone: [facility] 09-05-2022 13:34-0500 Diastolic blood pressure 98 mm[Hg] Dr. Camilla Castaneda Work Phone: [facility] 09-05-2022 13:34-0500 Heart rate 56 /min Dr. Camilla Castaneda Work Phone: [facility] 09-05-2022 13:34-0500 Respiratory rate 16 /min Dr. Camilla Castaneda Work Phone: [facility] 09-05-2022 13:34-0500 SaO2% (BldA) [Mass fraction] 98 % Dr. Camilla Castaneda Work Phone: [facility] 09-05-2022 13:34-0500 Systolic blood pressure 144 mm[Hg] Dr. Camilla Castaneda Work Phone: [facility] 08-29-2022 14:04-0500 Body mass index (BMI) [Ratio] 42.7 kg/m2 Dr. Camilla Castaneda Work Phone: [facility] 08-29-2022 14:04-0500 Body temperature 97.9 [degF] Dr. Camilla Castaneda Work Phone: [facility] 08-29-2022 14:04-0500 Body weight 106.[address] Camilla Castaneda Work Phone: [facility] 08-29-2022 14:04-0500 Diastolic blood pressure 78 mm[Hg] Dr. Camilla Castaneda Work Phone: [facility] 08-29-2022 14:04-0500 Heart rate 72 /min Dr. Camilla Castaneda Work Phone: [facility] 08-29-2022 14:04-0500 Respiratory rate 16 /min Dr. Camilla Castaneda Work Phone: [facility] 08-29-2022 14:04-0500 SaO2% (BldA) [Mass fraction] 97 % Dr. Camilla Castaneda Work Phone: [facility] 08-29-2022 14:04-0500 Systolic blood pressure 130 mm[Hg] Dr. Camilla Castaneda Work Phone: [facility] 08-04-2022 14:01-0500 Body temperature 97.7 [degF] Dr. Camilla Castaneda Work Phone: [facility] 08-04-2022 14:01-0500 Body weight 105.[address] Camilla Castaneda Work Phone: [facility] 08-04-2022 14:01-0500 Diastolic blood pressure 80 mm[Hg] Dr. Camilla Castaneda Work Phone: [facility] 08-04-2022 14:01-0500 Heart rate 68 /min Dr. Camilla Castaneda Work Phone: [facility] 08-04-2022 14:01-0500 Respiratory rate 16 /min Dr. Camilla Castaneda Work Phone: [facility] 08-04-2022 14:01-0500 SaO2% (BldA) [Mass fraction] 96 % Dr. Camilla Castaneda Work Phone: [facility] 08-04-2022 14:01-0500 Systolic blood pressure 134 mm[Hg] Dr. Camilla Castaneda Work Phone: [facility] 07-05-2022 14:07-0500 Body mass index (BMI) [Ratio] 42 kg/m2 Dr. Camilla Castaneda Work Phone: [facility] 07-05-2022 14:07-0500 Body weight 104.[address] Camilla Castaneda Work Phone: [facility] 02-09-2022 15:06-0400 Body height 158.75 cm [facility] Work Phone: [facility] Work Phone: 02-09-2022 15:06-0400 Body mass index (BMI) [Ratio] 42.1 kg/m2 [facility] Work Phone: [facility] Work Phone: 02-09-2022 15:06-0400 Body temperature 97.6 [degF] [facility] Work Phone: [facility] Work Phone: 02-09-2022 15:06-0400 Body weight 106.14 kg [facility] Work Phone: [facility] Work Phone: 02-09-2022 15:06-0400 Diastolic blood pressure 80 mm[Hg] [facility] Work Phone: [facility] Work Phone: 02-09-2022 15:06-0400 Heart rate 60 /min [facility] Work Phone: [facility] Work Phone: 02-09-2022 15:06-0400 Respiratory rate 14 /min [facility] Work Phone: [facility] Work Phone: 02-09-2022 15:06-0400 SaO2% (BldA) [Mass fraction] 98 % [facility] Work Phone: [facility] Work Phone: 02-09-2022 15:06-0400 Systolic blood pressure 126 mm[Hg] [facility] Work Phone: [facility] Work Phone: 01-27-2022 14:48-0400 Body mass index (BMI) [Ratio] 43 kg/m2 [facility] Work Phone: [facility] Work Phone: 01-27-2022 14:48-0400 Body weight 106.7 kg [facility] Work Phone: [facility] Work Phone: 01-27-2022 14:48-0400 Diastolic blood pressure 78 mm[Hg] [facility] Work Phone: [facility] Work Phone: 01-27-2022 14:48-0400 Heart rate 60 /min [facility] Work Phone: [facility] Work Phone: 01-27-2022 14:48-0400 Respiratory rate 16 /min [facility] Work Phone: [facility] Work Phone: 01-27-2022 14:48-0400 Systolic blood pressure 120 mm[Hg] [facility] Work Phone: [facility] Work Phone: 11-23-2020 16:18-0400 Body height 157.5 cm Alvaro Artis Work Phone: [facility] 11-23-2020 16:18-0400 Body weight 107.19 kg Alvaro Artis Work Phone: [facility] 11-23-2020 16:18-0400 Diastolic blood pressure 78 mm[Hg] Alvaro Artis Work Phone: [facility] 11-23-2020 16:18-0400 Heart rate 61 /min Alvaro Artis Work Phone: [facility] 11-23-2020 16:18-0400 SaO2% (BldA) [Mass fraction] 98 % Alvaro Artis Work Phone: [facility] 11-23-2020 16:18-0400 Systolic blood pressure 152 mm[Hg] Alvaro Garciaocco Work Phone: [facility] 05-21-2020 15:06-0400 Body weight 104.42 kg [facility] 05-21-2020 15:06-0400 BP Diastolic 78 mm[Hg] Alvaro [facility] 05-21-2020 15:06-0400 BP Systolic 135 mm[Hg] [facility] 05-21-2020 15:06-0400 Height 157.5 cm Alvaro [facility] 05-21-2020 15:06-0400 Pulse (Heart Rate) 72 /min Al[facility]o [facility] Encounters Encounter Date Encounter Type Care Provider Facility Start: 12-19-2024 End: 12-19-[address] Richard Tierney MD -[facility] Work Phone: Start: 12-19-2024 End: 12-19-2024 ambulatory Susanna De [employer] Work Phone: [facility] Work Phone: Start: 10-31-2024 End: 10-31-2024 Patient encounter procedure Dru Muñiz [facility] -[facility] Work Phone: Start: 10-31-2024 End: 10-31-2024 ambulatory Susanna Solorzanoder Facility:[facility] Start: 10-10-2024 ambulatory Susanna Solorzanoder Facility:[facility] Start: 10-02-2024 End: 10-02-2024 ambulatory Susanna Solorzanoder [employer] Work Phone: [facility] Work Phone: Start: 10-02-2024 End: 10-02-2024 Patient encounter procedure Susanna De [employer] [facility] Start: 10-02-2024 End: 10-02-2024 ambulatory Susanna De Facility:[facility] Start: 04-29-2024 ambulatory [facility] Start: 04-22-2024 ambulatory Nancy Zeina [facility] Start: 03-29-2024 End: 03-29-2024 Admission to same day surgery center Lissette Vuong RD Work Phone: General Surgery Comment on above: S/P gastric sleeve p rocedure (Primary Dx); Dietary counseling and surveillance Start: 03-29-2024 End: 03-29-2024 ambulatory SUSANNA DE Facility:[facility] Start: 03-29-2024 End: 03-29-2024 Telemedicine consultation with patient Lissette Xavier MCCALLUM Work Phone: General Surgery Start: 03-28-2024 End: 03-28-2024 ambulatory Susanna De Facility:[facility] Start: 03-04-2024 End: 03-04-2024 ambulatory Susanna Valente Facility:[facility] Start: 02-21-2024 End: 02-21-2024 ambulatory Richard Tierney Facility:[facility] Start: 10-20-2023 End: 10-20-2023 ambulatory [facility] Work Phone: Start: 10-20-2023 End: 10-20-2023 Patient encounter procedure [facility]-Radiology, [facility] Work Phone: Start: 10-13-2023 End: 10-13-[address] Work Phone: General Surgery Comment on above: S/P gastric sleeve p rocedure (Primary Dx); Dietary counseling and surveillance Start: 10-13-2023 End: 10-13-2023 Telemedicine consultation with patient Lissette Arriagan RD Work Phone: [facility] Start: 09-15-2023 End: 09-15-2023 ambulatory SUSANNA DE Facility:[facility] Start: 09-08-2023 End: 09-08-2023 ambulatory Micki Jacobs HAMILTON.HEALTH MANAGEMENT CONSULTANT Work Phone: General Surgery Comment on above: S/P laparoscopic sle alpa gastrectomy (Primary Dx) Start: 09-08-2023 End: 09-08-2023 Telemedicine consultation with patient Micki Jacobs APRN.HEALTH MANAGEMENT CONSULTANT Work Phone: [facility] Start: 07-07-2023 End: 07-07-[address] Work Phone: General Surgery Comment on above: S/P laparoscopic sle alpa gastrectomy (Primary Dx); Obesity, Class II, BMI 35-39.9; Dietary counseling and surveillance Start: 07-07-2023 End: 07-07-2023 Telemedicine consultation with patient Giovana Deng RD Work Phone: [facility] Start: 07-05-2023 End: 07-05-2023 ambulatory MAISHA LENNON Facility:[facility] Start: 06-27-2023 End: 06-27-2023 Emergency department patient visit Dr. Camilla Castaneda Work Phone: [facility]-Emergency Department Work Phone: Start: 06-26-2023 Telephone encounter Tresa Wong RN General Surgery Start: 06-23-2023 Telephone encounter Tree green MD Work Phone: General Surgery Comment on above: Patient Update Start: 06-16-2023 End: 06-16-2023 Admission to same day surgery center Alfredo Zapata KARENPopeyeMilagros Work Phone: General Surgery Comment on above: Bariatric surgery [facility] (Primary Dx) Start: 06-16-2023 End: 06-16-2023 Telemedicine consultation with patient Alfredo Zapata PA-C Work Phone: [facility] Start: 06-14-2023 End: 06-14-2023 ambulatory Kami Frostcarol ann MCCALLUM Work Phone: Endocrinology BMI Comment on above: S/P laparoscopic sle alpa gastrectomy (Primary Dx); Obesity, Class II, BMI 35-39.9; Dietary counseling and surveillance Start: 06-14-2023 End: 06-14-2023 Telemedicine consultation with patient Kami Hercules RD Work Phone: [facility] Start: 06-12-2023 Telephone encounter Soledad Siegel RN NOC Comment on above: Follow Up Phone Call (All Clear.) Start: 06-06-2023 Telephone encounter Tresa Wong RN General Surgery Comment on above: Post Op Start: 05-18-2023 End: 05-18-2023 ambulatory Tresa Wong RN General Surgery Comment on above: Pre-Op Teaching Pre-operative examin ation (Primary Dx); History of TIA (transient ischemic attack); Essential (primary) hypertension; Coronary artery disease involving [place] coronary artery of [place] heart without angina pectoris; History of cardiomyopathy; Mild intermittent asthma without complication; Hypothyroidism, unspecified type; Type 2 diabetes mellitus without complication, without long-term current use of insulin (HCC); Obesity, Class III, BMI >= 40; Post-operative nausea and vomiting Start: 05-18-2023 End: 05-18-2023 Admission to [facility] Main 6 Work Phone: [facility] Start: 05-18-2023 End: 05-18-2023 Preprocedural examination done [facility] Main 6 Work Phone: [facility] Work Phone: Start: 05-18-2023 End: 05-18-2023 Patient encounter procedure Tree Lynch MD Work Phone: General Surgery Comment on above: Class 3 severe obesi ty due to excess calories with serious comorbidity and body mass index (BMI) of 40.0 to 44.9 in adult ([facility]) (Primary Dx); Controlled type 2 diabetes mellitus without complication, unspecified whether long term care phlebotomist insulin use ([facility]); Essential (primary) hypertension Start: 05-15-2023 End: 05-15-2023 ambulatory Giovana Sowmya MCCALLUM Work Phone: General Surgery Comment on above: Obesity, Class III, BMI 40-49.9 (morbid obesity) ([facility]) (Primary Dx); Dietary counseling and surveillance Start: 05-15-2023 End: 05-15-2023 Telemedicine consultation with patient Giovana Aguilarileana MCCALLUM Work Phone: [facility] Start: 05-05-2023 End: 05-05-[address] Camilla Castaneda Work Phone: [facility]-Laboratory, [facility] Start: 05-04-2023 End: 05-04-[address] Camilla Castaneda Work Phone: [facility] Work Phone: Start: 04-30-2023 Non-patient / Non-visit Dr. Edwin Castaneda Work Phone: [facility] Start: 04-28-2023 End: 04-28-[address] Camilla Castaneda Work Phone: [facility] Work Phone: Start: 04-28-2023 End: 04-28-[address] [facility]: Start: 04-28-2023 Non-patient / Non-visit Dr. Edwin Castaneda Work Phone: [facility] Start: 04-27-2023 End: 04-27-[address] Camilla Castaneda Work Phone: [facility] Work Phone: Start: 04-20-2023 End: 04-20-[address] Camilla Castaneda Work Phone: [facility] Work Phone: Start: 04-18-2023 Telephone encounter Tresa Wong RN General Surgery Start: 03-31-[address] Camilla Castandea Work Phone: [facility] Start: 03-30-2023 ambulatory Imelda Persaud RN General Surgery Comment on above: 05/31/2023 Start: 03-30-2023 Preprocedural examination done Imelda Persaud RN [facility] Start: 03-10-2023 End: 03-10-2023 ambulatory Jennifer Olguin PhD Work Phone: Endocrinology PSYL Comment on above: Controlled depressio n (Primary Dx); History of bulimia; Psychological factors affecting morbid obesity (HCC) Start: 03-10-2023 End: 03-10-2023 Telemedicine consultation with patient Jennifer Olguin PhD Work Phone: [facility] Start: 02-13-[address] Matt [facility]eda [facility] Work [facility]: Start: 02-10-2023 Telephone encounter Nanda De La Cruz contact lens edge buffer Comment on above: Appointment Confirma tion (Pre-procedure instructions) Start: 01-27-2023 Telephone encounter Lizette Oliver RN Gastroenterology Comment on above: Appointment Confirma tion Start: 01-27-2023 End: 01-27-[address] Camilla Castaneda Work Phone: [facility] Work Phone: Start: 01-27-2023 End: 01-27-[address] Camilla Castaneda Work Phone: [facility] Medicine Work Phone: Start: 01-26-2023 End: 01-26-[address] Work Phone: General Surgery Comment on above: Obesity, Class III, BMI 40-49.9 (morbid obesity) (HCC) (Primary Dx); Dietary counseling and surveillance Start: 01-26-2023 End: 01-26-2023 Telemedicine consultation with patient Giovana Deng RD Work Phone: [facility] Start: 01-20-[address] Simin Castaneda Work Phone: [facility]Patient Link Work Phone: Start: 01-18-2023 End: 01-18-2023 ambulatory Jennifer Olguin PhD Work Phone: Endocrinology [facility] Comment on above: NO SHOW (Primary Dx) Start: 01-18-2023 End: 01-18-2023 Telemedicine consultation with patient Jennifer Olguin PhD Work Phone: [facility] Start: 01-17-2023 End: 01-17-2023 ambulatory Tree Lynch MD Work Phone: General Surgery Comment on above: Body mass index 40.0 -44.9, adult (HCC) (Primary Dx); Essential (primary) hypertension; Hypertensive retinopathy, unspecified laterality Start: 01-17-2023 End: 01-17-2023 Telemedicine consultation with patient Tree Lynch MD Work Phone: [facility] Start: 01-06-2023 End: 01-06-2023 Subsequent hospital visit by physician Xr [facility] Adriel Work Phone: Radiology Comment on above: Obesity, Class III, BMI 40-49.9 (morbid obesity) (HCC) [E66.01] Start: 12-01-2022 Non-patient / Non-visit Dr. Edwin Castaneda Work Phone: [facility] Start: 11-30-2022 Non-patient / Non-visit Dr. Edwin Castaneda Work Phone: [facility] Start: 11-30-2022 Non-patient / Non-visit Dr. Edwin Castaneda Work Phone: [facility] Start: 11-30-2022 Non-patient / Non-visit Dr. Edwin Castaneda Work Phone: [facility] Start: 11-29-2022 Non-patient / Non-visit Dr. Edwin Castaneda Work Phone: [facility] Start: 11-29-2022 End: 12-01-2022 Evaluation and management of inpatient Dr. Camilla Castaneda Work Phone: [facility]-Intensive Care Unit Start: 11-09-2022 End: 11-09-[address] Camilla Castaneda Work Phone: [facility] [place] [facility] Start: 09-30-2022 Non-patient / Non-visit Dr. Edwin Castaneda Work Phone: [facility] Start: 09-30-2022 End: 09-30-2022 Admission to same day surgery center Dr. Camilla Castaneda Work Phone: [facility]-Endoscopy Start: 09-30-2022 End: 09-30-[address] Camilla Castaneda Work Phone: [facility] Work Phone: Start: 09-29-2022 End: 09-29-[address] Camilla Castaneda Work Phone: [facility] Endocrinology Start: 09-12-2022 End: 09-12-2022 Emergency department patient visit Dr. Camilla Castaneda Work Phone: [facility]-Emergency Department Start: 09-05-2022 End: 09-05-[address] Camilla Castaneda Work Phone: [facility] Work Phone: Start: 09-05-2022 End: 09-05-[address] Camilla Castaneda Work Phone: [facility] Internal Medicine Start: 08-29-2022 End: 08-29-[address] Camilla Castaneda Work Phone: [facility] Work Phone: Start: 08-29-2022 End: 08-29-[address] Camilla Castaneda Work Phone: [facility] Internal Medicine Start: 08-04-2022 End: 08-04-[address] Camilla Castaneda Work Phone: [facility] Internal Medicine Start: 07-05-2022 Non-patient / Non-visit Dr. Edwin Castaneda Work Phone: [facility] Start: 03-04-2022 End: 03-04-2022 Patient encounter procedure [facility] Work Phone: [facility]-Outpatient Breast Imaging Start: 02-09-2022 Patient encounter status [facility] Work Phone: [facility] Start: 02-09-2022 End: 02-09-2022 Encounter for general adult medical examination without abnormal findings [facility] Work Phone: [facility] Start: 02-09-2022 End: 02-09-2022 Patient encounter procedure [facility] Work Phone: [facility] Start: 01-27-2022 End: 01-27-2022 Patient encounter procedure [facility] Work Phone: [facility] Start: 11-23-2020 End: 11-23-2020 Patient encounter procedure Alvaro Wisdom Work Phone: [email or web address] [employer] [place] Comment on above: 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); Long-term current use of thyroid hormone replacement therapy; Alban's thyroiditis; Iron deficiency; Fatigue, unspecified type; Family history of thyroid disease; Obesity, Class III, BMI 40-49.9 (morbid obesity) (HCC); Disorder of adrenal gland (HCC) Start: 11-17-2020 End: 11-17-2020 Chart abstracting Alvaro Hernandez Artis Work Phone: [employer] Comment on above: Abstract Start: 05-22-2020 End: 05-22-2020 Orders Only Alvaro Wisdom Work Phone: [employer] [place] Comment on above: 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); Acquired hypothyroidism Start: 05-21-2020 End: 05-21-2020 Patient encounter procedure Alvaro Wisdom Work Phone: [employer] [place] Comment on above: 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); Alban's thyroiditis; Iron deficiency Start: 05-19-2020 End: 05-19-2020 Chart abstracting Alvaro Wisdom Work Phone: [employer] [place] Comment on above: Abstract Start: 02-24-2017 End: 02-25-2017 [facility] Facility:B Procedures Date Procedure Procedure Detail Performing Clinician Start: 10-02-2024 MELINA measurement Susanna Solorzano venessa [employer] OPER[employer] Work Phone: Comment on above: Performed at: [place] [id number] Director: Gómez Aragon PhD, Phone: [phone] Start: 10-20-2023 Diagnostic radiograp hy of upper gastrointestinal tract with serial films Start: 04-28-2023 Radionuclide imaging of perfusion of myocardium under exercise stress Dr. Camilla Castaneda Work Phone: Start: 01-06-2023 Radiologic exam ches t 2 views Micki Arlene BLACK PULLER.HEALTH MANAGEMENT CONSULTANT Work Phone: Start: 01-06-2023 Lipid 1996 panel - S luis manuel or Plasma Tresa Wong RN Start: 11-30-2022 MRI of brain without contrast Dr. Camilla Castaneda Work Phone: Start: 11-29-2022 Plain chest X-ray Dr. July Castaneda Work Phone: Start: 11-29-2022 CT angiography of he ad and neck Dr. Camilla Castaneda Work Phone: Start: 11-29-2022 CT of head without contrast Dr. Camilla Castaneda Work Phone: Start: 09-30-[address] Matt Castaneda Work Phone: Start: 09-12-2022 CT of abdomen and pe lvis without contrast Dr. Camilla Castaneda Work Phone: Start: 03-04-2022 Screening mammography [facility] Work Phone: Urine culture Dr. Camilla Castaneda Work Phone: Urine culture Dr. Camilla Castaneda Work Phone: Plan of Treatment Date Care Activity Detail Author Start: 09-22-2028 Urine microalbumin profile DTaP,Tdap,Td Vaccine (2 - Td or Tdap) [facility] Start: 01-07-2028 Lipid 1996 panel - S luis manuel or Plasma Lipid Screening [facility] Start: 01-07-2028 LIPID SCREEN LIPID SCREEN [facility] Start: 04-21-2026 Diabetes Screening Diabetes Screenin g [facility] Start: 01-06-2026 DIABETES SCREEN DIABETES SCREEN [facility] Start: 01-06-2026 Diabetes Screening Diabetes Screenin g [facility] Start: 09-15-2024 Hepatitis B surface antibody level LDL Cholesterol [facility] Start: 07-03-2024 End: 07-03-2024 Follow-up encounter 07/03/2024 4:00 PM [facility] [address] [place] [address] [place] [address] [place] [phone] nutrition follow up General Surgery Comment on above: nutrition follow up Start: 05-18-2024 BP Controlled (<130/80) BP Controlle d (<130/80) [facility] Start: 04-07-2024 Influenza vaccination Influenza Vacc ine (#1) [facility] Start: 03-15-2024 Hemoglobin A1c measurement HbA1C [facility] Start: 01-07-2024 Hepatitis B surface antibody level LDL Cholesterol [facility] Start: 11-19-2023 Hemoglobin A1c measurement HbA1C [facility] Start: 11-19-2023 Hemoglobin A1c/Hemoglobin.total in Blood HbA1C [facility] Start: 09-08-2023 End: 12-08-2023 25-hydroxyvitamin D3 [Mass/volume] in Serum or Plasma VITAMIN D 25 HYDROXY Lab Routine S/P laparoscopic sleeve gastrectomy Expected: 09/08/2023, Expires: 12/08/[address] [facility] Work Phone: Comment on above: Expected: 09/08/2023 , Expires: 12/08/2023 Start: 09-08-2023 End: 12-08-2023 CBC W Auto Differential panel - Blood CBC + DIFF Lab Routine S/P laparoscopic sleeve gastrectomy Expected: 09/08/2023, Expires: 12/08/[address] [facility] Work Phone: Comment on above: Expected: 09/08/2023 , Expires: 12/08/2023 Start: 09-08-2023 End: 12-08-2023 Cobalamin (Vitamin B12) [Mass/volume] in Serum or Plasma VITAMIN B12 BLOOD Lab Routine S/P laparoscopic sleeve gastrectomy Expected: 09/08/2023, Expires: 12/08/[address] [facility] Work Phone: Comment on above: Expected: 09/08/2023 , Expires: 12/08/2023 Start: 09-08-2023 End: 12-08-2023 Comprehensive metabolic 2000 panel - Serum or Plasma COMP METABOLIC PANEL Lab Routine S/P laparoscopic sleeve gastrectomy Expected: 09/08/2023, Expires: 12/08/[address] [facility] Work Phone: Comment on above: Expected: 09/08/2023 , Expires: 12/08/2023 Start: 09-08-2023 End: 12-08-2023 Ferritin [Mass/volume] in Serum or Plasma FERRITIN BLD Lab Routine S/P laparoscopic sleeve gastrectomy Expected: 09/08/2023, Expires: 12/08/[address] [facility] Work Phone: Comment on above: Expected: 09/08/2023 , Expires: 12/08/2023 Start: 09-08-2023 End: 12-08-2023 Folate [Mass/volume] in Serum or Plasma FOLATE SERUM Lab Routine S/P laparoscopic sleeve gastrectomy Expected: 09/08/2023, Expires: 12/08/[address] [facility] Work Phone: Comment on above: Expected: 09/08/2023 , Expires: 12/08/2023 Start: 09-08-2023 End: 12-08-2023 Hemoglobin A1c in Blood HGB A1C Lab Routine S/P laparoscopic sleeve gastrectomy Expected: 09/08/2023, Expires: 12/08/[address] [facility] Work Phone: Comment on above: Expected: 09/08/2023 , Expires: 12/08/2023 Start: 09-08-2023 End: 12-08-2023 Iron and Iron binding capacity panel - Serum or Plasma IRON + TIBC Lab Routine S/P laparoscopic sleeve gastrectomy Expected: 09/08/2023, Expires: 12/08/[address] [facility] Work Phone: Comment on above: Expected: 09/08/2023 , Expires: 12/08/2023 Start: 09-08-2023 End: 12-08-2023 Lipid 1996 panel - Serum or Plasma LIPID PANEL BASIC Lab Routine S/P laparoscopic sleeve gastrectomy Expected: 09/08/2023, Expires: 12/08/[address] [facility] Work Phone: Comment on above: Expected: 09/08/2023 , Expires: 12/08/2023 Start: 09-08-2023 End: 12-08-2023 Thyrotropin [Units/volume] in Serum or Plasma TSH BLD Lab Routine S/P laparoscopic sleeve gastrectomy Expected: 09/08/2023, Expires: 12/08/[address] [facility] Work Phone: Comment on above: Expected: 09/08/2023 , Expires: 12/08/2023 Start: 09-08-2023 End: 12-08-2023 VITAMIN B1 (THIAMINE), WHOLE BLOOD VITAMIN B1 (THIAMINE), WHOLE BLOOD Lab Routine S/P laparoscopic sleeve gastrectomy Expected: 09/08/2023, Expires: 12/08/[address] [facility] Work Phone: Comment on above: Expected: 09/08/2023 , Expires: 12/08/2023 Start: 08-07-2023 Depression Assessment Depression Ass essment [facility] Start: 07-08-2023 Hemoglobin A1c/Hemoglobin.total in Blood HbA1C [facility] Start: 05-18-2023 End: 07-18-2023 TYPE AND SCREEN,[address] [facility] Work Phone: Comment on above: Expected: 05/18/2023 , Expires: 07/18/2023 Start: 04-18-2023 End: 04-18-2024 CBC W Auto Differential panel - Blood CBC + DIFF Lab Routine Pre-op examination Class 3 severe obesity due to excess calories with serious comorbidity and body mass index (BMI) of 40.0 to 44.9 in adult (HCC) Controlled type 2 diabetes mellitus without complication, unspecified whether long term care phlebotomist insulin use (HCC) Expected: 04/18/2023 (Approximate), Expires: 04/18/[address] [facility] Work Phone: Comment on above: Expected: 04/18/2023 (Approximate), Expires: 04/18/2024 Start: 04-18-2023 End: 06-18-2023 Coagulation factor VIII activity actual/normal in Platelet poor plasma by Coagulation assay FACTOR VIII:C ASSAY Lab Routine Pre-op examination Class 3 severe obesity due to excess calories with serious comorbidity and body mass index (BMI) of 40.0 to 44.9 in adult (HCC) Controlled type 2 diabetes mellitus without complication, unspecified whether mcc insulin use (HCC) Expected: 04/18/2023, Expires: 06/18/[address] [facility] Work Phone: Comment on above: Expected: 04/18/2023 , Expires: 06/18/2023 Start: 04-18-2023 End: 04-18-2024 Comprehensive metabolic 2000 panel - Serum or Plasma COMP METABOLIC PANEL Lab Routine Pre-op examination Class 3 severe obesity due to excess calories with serious comorbidity and body mass index (BMI) of 40.0 to 44.9 in adult (HCC) Controlled type 2 diabetes mellitus without complication, unspecified whether long term care phlebotomist insulin use (HCC) Expected: 04/18/2023 (Approximate), Expires: 04/18/[address] [facility] Work Phone: Comment on above: Expected: 04/18/2023 (Approximate), Expires: 04/18/2024 Start: 04-18-2023 End: 04-18-2024 CONFIRM BLOOD TYPE CONFIRM BLOOD TYPE Blood Bank Routine Pre-op examination Class 3 severe obesity due to excess calories with serious comorbidity and body mass index (BMI) of 40.0 to 44.9 in adult (HCC) Controlled type 2 diabetes mellitus without complication, unspecified whether long term care phlebotomist insulin use (HCC) Expected: 04/18/2023, Expires: 04/18/[address] [facility] Work Phone: Comment on above: Expected: 04/18/2023 , Expires: 04/18/2024 Start: 04-18-2023 End: 04-18-2024 TYPE AND SCREEN,30 DAY TYPE AND SCREEN,30 DAY Blood Bank Routine Pre-op examination Class 3 severe obesity due to excess calories with serious comorbidity and body mass index (BMI) of 40.0 to 44.9 in adult (HCC) Controlled type 2 diabetes mellitus without complication, unspecified whether mcc insulin use (HCC) Expected: 04/18/2023, Expires: 04/18/[address] [facility] Work Phone: Comment on above: Expected: 04/18/2023 , Expires: 04/18/2024 Start: 04-07-2023 Covid-19 Vaccine () Covid-19 Vaccine () [facility] Start: 04-07-2023 Influenza vaccination [facility] Start: 12-01-2022 Patient discharge [facility] Start: 11-30-2022 Care planning and pr oblem solving actions [facility] Start: 11-30-2022 Speech therapy assessment [facility] Start: 11-29-2022 Application of intermittent pneumatic compression device [facility] Start: 11-29-2022 Following clinical pathway protocol [facility] Start: 11-29-2022 Assessment of risk o f venous thromboembolism [facility] Start: 11-29-2022 Bedrest [facility] Start: 11-29-2022 Cardiac monitoring [facility] Start: 11-29-2022 Catheterization of vein [facility] Start: 11-29-2022 Continuous pulse oximetry [facility] Start: 11-29-2022 Documentation procedure [facility] Start: 11-29-2022 Elevation of head of bed [facility] Start: 11-29-2022 Exercises [facility] Start: 11-29-[address] anned interventions [facility] Start: 11-29-2022 Incentive spirometry [facility] Start: 11-29-2022 Insertion of cathete r into peripheral vein [facility] Start: 11-29-2022 Measuring intake and output [facility] Start: 04-25-2023 Notification of physician [facility] Start: 11-29-2022 Oxygen therapy [facility] Start: 11-29-2022 Providing care accor ding to standard [facility] Start: 11-29-2022 Referral to occupati onal therapist [facility] Start: 11-29-2022 Referral to service [facility] Start: 11-29-2022 Tobacco use cessatio n education [facility] Start: 11-29-2022 Vital signs measurements [facility] Start: 11-29-2022 [facility] Start: 11-29-2022 [facility] Start: 11-29-2022 Verification routine [facility] Start: 11-29-2022 Admission procedure [facility] Start: 11-29-2022 End: 11-29-2022 Bleeding precautions [facility] Start: 11-29-2022 Consultation [facility] Start: 11-29-2022 End: 11-29-2022 Oxygen therapy [facility] Start: 11-29-2022 End: 11-29-2022 [facility] Start: 11-29-2022 Inhalation therapy procedure [facility] Start: 09-30-2022 Colonoscopy flx dx w/collj spec when pfrmd DIAGNOSTIC COLONOSCOPY [facility] Start: 09-30-2022 Patient discharge [facility] Start: 08-07-2022 DEPRESSION ASSESSMENT DEPRESSION ASS ESSMENT [facility] Start: 02-09-2022 Patient referral [facility] Work Phone: Start: 04-07-2021 Influenza vaccination INFLUENZA (Sea son Ended) [facility] Start: 01-12-2021 COVID-19 VACCINE (3 - Booster for Moderna series) COVID-19 VACCINE (3 - Booster for Moderna series) [facility] Start: 01-12-2021 COVID-19 VACCINE (3 - Moderna series) COVID-19 VACCINE (3 - Moderna series) [facility] Start: 04-07-2020 Influenza vaccination INFLUENZA (#1) [facility] Start: 2016 Screening for malign ant neoplasm of colon [facility] Start: 2016 SHINGRIX VACCINE (1 of 2) MILLER GRIX VACCINE (1 of 2) [facility] Start: 2016 Tuberculosis screening COLOREC TAM CANCER SCREENING,SEE MODIFIER [facility] Start: 2011 COLOGUARD (FIT-DNA) COLOGUARD (FIT-D NA) [facility] Start: 2011 Colonoscopy COLONOSCOPY [facility] Start: 2011 COLORECTAL CANCER SCREENING COLORECTAL CANCER SCREENING [facility] Start: [address] COLONOGRAPHY [facility] Start: 2011 DIABETES SCREEN DIABETES SCREEN [facility] Start: 2011 FECAL OCCULT BLOOD FECAL OCCULT BLOO D [facility] Start: 2011 LIPID SCREEN LIPID SCREEN [facility] Start: 2011 Screening for malign ant neoplasm of colon [facility] Start: 2011 SIGMOIDOSCOPY SIGMOIDOSCOPY [facility] Start: 2006 Mammography [facility] Start: 2006 Screening for malign ant neoplasm of breast Mammogram Screening [facility] Start: 1996 HPV TESTING HPV TESTING [facility] Start: 1996 Screening for malign ant neoplasm of cervix HPV Testing [facility] Start: 1987 PAP TESTING PAP TESTING [facility] Start: 1987 Screening for malign ant neoplasm of cervix [facility] Start: 1985 Hepatitis B Vaccine (1 of 3 - 19+ 3-dose series) Hepatitis B Vaccine (1 of 3 - 19+ 3-dose series) [facility] Start: 1985 Urine microalbumin profile [facility] Start: 1984 ANNUAL PCP TEAM SUPERVISOR SH[employer]FITTERS ROSAURA DISEASE VISIT ANNUAL PCP TEAM CHRONIC DISEASE VISIT [facility] Start: 1984 Anxiety Screening Anxiety Screening [facility] Start: 1984 BP CONTROLLED (<130/80) BP CONTROLLE D (<130/80) [facility] Start: 1984 Depression Screening Depression Scre ening [facility] Start: 1984 HEPATITIS C SCREENING HEPATITIS [facility] Start: 1984 Hepatitis C screening Hepatitis C [facility] Start: 1984 HIV SCREENING HIV SCREENING [facility] Start: 1984 HIV screening HIV Screening [facility] Start: 1984 Spirometry Spirometry [facility] Start: 1978 Adult depression screening assessment DEPRESSION SCREENING [facility] Start: 1976 3 comp foot exam completed Diabetic Foot Exam [facility] Start: 1976 Diabetic foot examination Diabetic F oot Exam [facility] Start: 1976 Glaucoma screening Dilated Retinal E xam [facility] Start: 1976 Hepatitis B screening Urine Al bumin:Creatinine Ratio [facility] Start: 1976 Hepatitis C antibody , confirmatory test Dilated Retinal Exam [facility] Start: 1972 Pneumococcal vaccination [facility] Start: 1966 HEPATITIS B (1 of 3 - 3-dose series) HEPATITIS B (1 of 3 - 3-dose series) [facility] Start: 1966 Hepatitis B Vaccine (1 of 3 - 3-dose series) Hepatitis B Vaccine (1 of 3 - 3-dose series) [facility] Colonoscopy [facility] CT Abdomen and Pelvi s WO contrast [facility] End: 01-18-2024 EGD DIAGNOSTIC EGD DIAGNOSTIC Endoscopy Routine Body mass index 40.0-44.9, adult (HCC) 1 Occurrences starting 01/17/2023 until 01/18/[address] [facility] Work Phone: Comment on above: 1 Occurrences starti ng 01/17/2023 until 01/18/2024 End: 11-23-2021 FERRITIN BLD FERRITIN BLD Lab Routine Iron deficiency 1 Occurrences starting 11/23/2020 until 11/23/2021 [facility] Comment on above: 1 Occurrences starti ng 11/23/2020 until 11/23/2021 End: 11-23-2021 FREE ERIKA, UR LCMSMS FREE ERIKA, UR LCMSMS Lab Routine Fatigue, unspecified type Obesity, Class III, BMI 40-49.9 (morbid obesity) (HCC) Disorder of adrenal gland (HCC) 1 Occurrences starting 11/23/2020 until 11/23/2021 [facility] Comment on above: 1 Occurrences starti ng 11/23/2020 until 11/23/2021 Helicobacter pylori Ag [Presence] in Stool by Immunoassay H PYLORI AG BY EIA,STOOL Microbiology Routine S/P laparoscopic sleeve gastrectomy Ordered: 09/08/[address] [facility] Work Phone: Comment on above: Ordered: 09/08/2023 Hemoglobin A1c/Hemoglobin.total in Blood [facility] End: 05-21-2021 IRON + TIBC IRON + TIBC Lab Routine Iron deficiency 1 Occurrences starting 05/21/2020 until 05/21/2021 [facility] Comment on above: 1 Occurrences starti ng 05/21/2020 until 05/21/2021 IRON + TIBC IRON + TIBC Lab Routine Iron deficiency 05/21/2020 4:01 PM EDT [facility] End: 11-23-2021 IRON + TIBC IRON + TIBC Lab Routine Iron deficiency 1 Occurrences starting 11/23/2020 until 11/23/2021 [facility] Comment on above: 1 Occurrences starti ng 11/23/2020 until 11/23/2021 MG Breast - bilatera l Screening [facility] Patient Education [facility] Work Phone: Patient referral [facility] Work Phone: REFER FOR ADMIT INTERVIEW REFER FOR ADMIT INTERVIEW Procedures Routine Pre-op examination Class 3 severe obesity due to excess calories with serious comorbidity and body mass index (BMI) of 40.0 to 44.9 in adult (HCC) Controlled type 2 diabetes mellitus without complication, unspecified whether mcc insulin use (HCC) Ordered: 04/18/[address] [facility] Work Phone: Comment on above: Ordered: 04/18/2023 End: 05-21-2021 T3 FREE BLD T3 FREE BLD Lab Routine Hypothyroidism due to Alban's thyroiditis 1 Occurrences starting 05/21/2020 until 05/21/2021 [facility] Comment on above: 1 Occurrences starti ng 05/21/2020 until 05/21/2021 T3 FREE BLD T3 FREE BLD Lab Routine Hypothyroidism due to Alban's thyroiditis 05/21/2020 4:01 PM EDT [facility] End: 11-23-2021 T3 FREE BLD T3 FREE BLD Lab Routine Hypothyroidism due to Alban's thyroiditis 1 Occurrences starting 11/23/2020 until 11/23/2021 [facility] Comment on above: 1 Occurrences starti ng 11/23/2020 until 11/23/2021 End: 05-21-2021 T4 FREE/FREE THYROX T4 FREE/FREE THYROX Lab Routine Hypothyroidism due to Alban's thyroiditis 1 Occurrences starting 05/21/2020 until 05/21/2021 [facility] Comment on above: 1 Occurrences starti ng 05/21/2020 until 05/21/2021 T4 FREE/FREE THYROX T4 FREE/FREE THYROX Lab Routine Hypothyroidism due to Alban's thyroiditis 05/21/2020 4:01 PM EDT [facility] End: 11-23-2021 T4 FREE/FREE THYROX T4 FREE/FREE THYROX Lab Routine Hypothyroidism due to Alban's thyroiditis 1 Occurrences starting 11/23/2020 until 11/23/2021 [facility] Comment on above: 1 Occurrences starti ng 11/23/2020 until 11/23/2021 Thyroid stimulating hormone measurement [facility] End: 11-23-2021 Thyrotropin [Units/volume] in Serum or Plasma TSH BLD Lab Routine Hypothyroidism due to Alban's thyroiditis 1 Occurrences starting 11/23/2020 until 11/23/2021 [facility] Comment on above: 1 Occurrences starti ng 11/23/2020 until 11/23/2021 End: 10-07-2024 XR UPPER GI SINGLE CONTRAST XR UPPER GI SINGLE CONTRAST Radiology Routine S/P laparoscopic sleeve gastrectomy 1 Occurrences starting 09/08/2023 until 10/07/[address] [facility] Work Phone: Comment on above: 1 Occurrences starti ng 09/08/2023 until 10/07/2024 [facility] Immunizations Immunization Date Immunization Notes Care Provider Fa cility 09-22-2018 tetanus toxoid, redu carrington diphtheria toxoid, and acellular pertussis vaccine, adsorbed [facility] Work Phone: [facility] 07-17-2018 influenza virus vaccine, unspecified formulation Tresa Wong RN [facility] Payers Date Payer Category Payer Self-pay [id number] 2022 Medicaid [id number] 2022 Unknown [id number] 2017 Unknown [place] [place] [employer] [id number] 2017-Present Indemnity [id number] 2017 Unknown [id number] Medicaid [employer] MED[employer] [id number] Unknown [id number] Unknown [id number] Unknown [id number] Unknown [id number] Unknown [id number] Unknown [id number] Unknown [id number] Unknown [id number] Unknown [id number] Unknown [id number] Unknown [id number] Social History Date Type Detail Facility Start: 06-11-2019 End: 06-27-2023 Tobacco smoking status NHIS Never smoker [facility] Work Phone: Start: 06-11-2019 End: 05-18-2023 Tobacco use and exposure Never used [facility] Start: 06-11-2019 End: 12-30-2022 Alcohol intake Current non-drinker of alcohol (finding) [facility] Start: 1965 Sex Assigned At Not on file [facility] Exposure to SARS-CoV -2 (event) Not sure [facility] Start: 02-09-2022 End: 06-27-2023 Tobacco smoking status VAIS Unknown if ever smoked [facility] Start: 1965 Sex Assigned At Female [facility] Start: 12-27-2022 End: 02-24-2023 History of Social function [facility] Start: 12-27-2022 End: 02-24-2023 Tobacco use panel [facility] Adult Depression Screening Assessment 0 [facility] Start: 04-18-2023 Gender identity Identifies as female gender (finding) [facility] Start: 04-18-2023 Sexual orientation Heterosexual (fin ding) [facility] Start: 04-20-2018 Non-smoker [facility] Start: 05-18-2023 End: 08-19-2023 Alcohol intake Current drinker of alcohol (finding) [facility] Start: 05-18-2023 Alcohol Comment 3-4 times a ye ar per pt 05/18/2023 [facility] Start: 10-17-2024 Sex Female (finding) [facility] NEGATED: Highlighted rowStart: NINF History of tobacco use Passive smoker [facility] Goals Date Patient Goal Desired Activity /State Personal health goal Functional Status Date Assessment Result Facility 12-01-2022 Functional status Chair [facility] Work Phone: Mental Status Date Assessment Result Facility 12-01-2022 Cognitive function Voice/Name [facility] Work Phone: 11-29-2022 Cognitive function Voice/Name [facility] Work Phone: 11-29-2022 Cognitive function Speech Patter n Clear;Appropriate [facility] Work Phone: 09-30-2022 Cognitive function Voice/Name [facility] Work Phone: Clinical Notes 05-19-2020 to 12-19-2024 Note Date & Type Note Facility 12-19-2024 Progress note [facility] 12-19-2024 Progress note Note Date/Time December 19, 2024 10:19am [facility] [address] [place] [address] OFFICE VISIT Date of Service: 12/19/24 MR#: [id number] Acct: [id number] Name: SHAR DANIELS Rep #: [id number] : 1965 Provider: Dr. Richard Tierney MD Age/Sex: 59/F [place] [facility]: Signed Intake Vital Signs 12/15/23 10:08 03/04/24 11:31 10/31/24 11:39 12/19/24 09:59 Height 5 ft 2 in 5 ft 2 in 5 ft 2 in 5 ft 2 in Weight: 192 lb BMI 35.1 BP 132/78 H Blood Pressure Location Lt brachial Position Sitting Pulse 64 Pulse Source Monitor Pulse Oximetry (%) 97 Oxygen Delivery Method room air Intake Visit Reasons: 1 Y FU Chief Complaint: Diabetes, hypothyroidism Is patient in pain?: Yes Allergies losartan Allergy (Intermediate, Verified 12/19/24 10:01) muscles locked up adhesive Allergy (Mild, Verified 12/19/24 10:01) Rash Sulfa (Sulfonamide Antibiotics) Allergy (Verified 12/19/24 10:01) Hives lisinopril Adverse Reaction (Severe, Verified 12/19/24 10:01) cough rosuvastatin (From Crestor) Adverse Reaction (Severe, Verified 12/19/24 10:01) Lymphadenopathy, edema, hyperthyroid atorvastatin (From Lipitor) Adverse Reaction (Intermediate, Verified 12/19/24 10:01) Muscle aches/myalgias Medications ?Medication ?Instructions ?Recorded ?Confirmed ?Type albuterol sulfate 90 mcg/actuation 1 - 2 puff inhalati on Q6H PRN 11/29/22 12/19/24 History aerosol inhaler SHORTNESS OF BREATH aspirin 81 mg tablet,delayed 81 mg PO DAILY HEART HEAL TH 11/29/22 12/19/24 History release (Adult Aspirin Regimen) ferrous sulfate 325 mg (65 mg 325 mg PO DAILY SUPPLEME NT 01/27/23 12/19/24 History iron) tablet calcium 600 mg-D3 800 unit-mag11 1 tab PO TID 12/15/23 12/19/24 History 50 pg-kiot-shhsyh-khoa-s.borat tablet (Caltrate 600-D Plus Minerals) multivitamin with iron 1 tab PO DAILY 12/15/2312/05 History metoprolol tartrate 25 mg tablet 25 mg PO DAILY BLOOD PRESSURE #90 08/08/24 12/19/24 Rx tabs duloxetine 20 mg capsule,delayed 20 mg PO QDAY 5 12/19/24 History release pantoprazole 40 mg tablet,delayed 40 mg PO BID 5 12/19/24 History release levothyroxine 125 mcg tablet 125 mcg PO DAILY #90 tabs 12/19/24 12/19/24 Rx PFSH Medical History Irregular heart rhythm Type 2 diabetes mellitus Wears glasses Post-menopausal Anxiety History of steroid therapy Thyroid disease Anemia Migraine headache Syncope Shortness of breath on exertion History of edema History of echocardiogram Normal stress echocardiogram Hypertension Cardiology follow-up encounter History of irregular heartbeat Colon cancer screening Preventative health care Essential hypertension Sinusitis Arthritis of left temporomandibular joint Anxiety and depression Otitis media Obesity Hyperglycemia Morbid obesity Hypertension Arthritis Thyroid disorder H/O bronchitis Asthma Pure hypercholesterolemia Atherosclerosis of [place] coronary artery of [place] heart without angina pectoris Shortness of breath Abnormal echocardiogram (03/23/18) Nonrheumatic mitral (valve) insufficiency Nonrheumatic tricuspid (valve) insufficiency Nonischemic cardiomyopathy Left ventricular dysfunction Vitiligo Hypothyroidism Surgical History H/O gastric sleeve History of cardiac catheterization Hx of laparoscopy History of colonoscopy History of laparoscopy History of left heart catheterization Stented coronary artery (04/19/18) History of cholecystectomy Family History Father CAD (coronary artery disease) Diabetes Dementia Heart disease Mother CAD (coronary artery disease) Hypertension Thyroid disorder Heart disease Sister Diabetes Type II Thyroid disorder Colon polyps Crohn's disease Sister Diabetes Type II Thyroid disorder Social History Smoking Status: Never smoker alcohol intake: current alcohol intake frequency: holidays/special occasions only substance use type: does not use caffeine: Yes Type: coffee Number of servings: 2 what type of physical activity do you participate in: none seatbelt use: always do you feel safe at home: Yes additional social history: - Sonny HPI HPI Chief Complaint: Diabetes, hypothyroidism Details: SHAR DANIELS, is a 59 F who presents to the office today for follow up. She has hypothyroidism. Last year, TSH was elevated. In September, TSH was 0.498 She is taking levothyroxine 125 mcg daily. She has history of DM type 2. She is s/p gastric sleeve. She has lost 48 pounds. A1C is 5.8% She reports body aches and inflammation, she waiting to see a telegraph installer. ROS Const Constitutional: No fatigue, weight change or change in appetite Eyes Eyes: No change in vision ENT ENT: No dizziness/vertigo or difficulty swallowing Cardio Cardiology: No chest pain at rest, chest pain with exertion, shortness of breathor palpitations Musc Musculoskeletal: No abnormal gait, joint pain, numbness or tingling Neuro Neurology: No abnormal gait, memory loss, numbness or tingling Psych Psychiatric: No change in appetite, No memory loss and No Thoughts of harming yourself/Others Resp Respiratory: No cough, chest congestion or shortness of breath Gastro GI: No abdominal pain, constipation, diarrhea or difficulty swallowing Genitourinary-Female: No burning urination Skin Skin: No itchy eyes or wounds Endo Endocrine: No fatigue or weight change Aller/Imm Allergy/Immunologic: No itchy eyes Exam Const General: cooperative, healthy appearing, comfortable, no acute distress, well developed and not cushingoid Nutritional Appearance: well nourished Orientation: alert, awake and oriented x3 HENMT Head: normal to inspection Ears: hearing grossly normal bilaterally Nose: external nose normal Mouth: oral mucosae normal Eyes General: appearance normal, both eyes and all related structures Alignment and Position: alignment normal Periorbital: periorbital findings normal Eyelids: eyelids normal Conjunctivae: conjunctivae normal Neck Neck: normal visual inspection Neck mass: No Thyroid: thyroid normal Lymphatic: no lymphadenopathy noted Chest Chest palpation & inspection: normal inspection of the chest Resp Effort & Inspection: normal respiratory effort, able to speak in complete sentences, symmetric chest movement, no audible wheezes and no cough Auscultation: Bilateral: Clear to Auscultation Cardio Rate: regular rate Rhythm: regular rhythm Skin General: no rashes or lesions noted Neuro General: patient alert, patient awake and patient oriented x3 Cranial Nerves: CN's II-XI intact bilaterally Cognition: normal cognition Speech: speech normal Gait: normal gait Motor: muscle tone normal throughout Extrem General: no edema Psych Appearance: grossly normal Mental Status: mental status grossly normal Mood: congruent mood Affect: normal affect Speech and Movement: speech and movement normal Attitude: cooperative Thought Process: normal Thought Content: normal Judgment: judgment good Results POC A1C POC A1C 5.8 % Last Edit by Sravan Lang RN on 12/19/24 10:08 Assessment and Plan Assessment and Plan (1) Hypothyroidism: Status: Chronic Qualifiers: 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 Then wait 30-60 minutes before consuming any other food or beverage, especially coffee. Separate levothyroxine from vitamins by at least 4 hours. Stop taking any biotin supplement 4 days prior to having labs drawn. (2) Type 2 diabetes mellitus: Status: Chronic Qualifiers: Diabetes mellitus complication status: without complication Diabetes mellitus mcc insulin use: without mcc use Qualified Code(s): E11.9 - Type 2 diabetes mellitus without complications Plan: Diet controlled. (3) Obesity: Status: Chronic Qualifiers: Body mass index: BMI 35.0-35.9 Obesity classification: adult class 2 (BMI 35 - 39.9) Obesity type: due to excess calories Serious obesity comorbidity presence: with serious comorbidity Qualified Code(s): E66.812 - Obesity, class 2; E66.01 - Morbid (severe) obesity due to excess calories; Z68.35 - Body mass index [BMI] 35.0-35.9, adult Plan: Nutritional counseling provided, avoid flour, sugar, and artificial sweeteners. I have spent [27] minutes today reviewing labs, records and history. Time includes coordinating care, interpretation of tests, discussion with patient's other health care providers via telephone. This also includes time I spent with the patient for exam, treatment plan and education as well as documenting clinical information. 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 Type 2 diabetes mellitus without complication, without long-term current use of insulin E11.9 Diabetes mellitus complication status: without complication Diabetes mellitus long term care phlebotomist insulin use: without long term care phlebotomist use Class 2 severe obesity due to excess calories with serious comorbidity and body mass index (BMI) of 35.0 to 35.9 in adult E66.812; E66.01; Z68.35 Body mass index: BMI 35.0-35.9 Obesity classification: adult class 2 (BMI 35 - 39.9) Obesity type: due to excess calories Serious obesity comorbidity presence: with serious comorbidity 12/19/24 1019 <Electronically signed by Richard Tierney MD> Date _ Richard Tierney MD Cosigner Signature: Date (if applicable) CC: Dr. Susanna Valente, DO ~ [place] [employer] Work Phone: [phone]) 308-755503-27-2025 Evaluation note* Diagnosis Onset Date Resolution Status Admit Date Acute pharyngitis acute October 062024 11:24am Hypothyroidism chronic December 19, 2024 9:52am Obesity chronic December 19, 2024 9:52am Type 2 diabetes mellitus chronic December 19, 2024 9:52am [place] [employer] Work Phone: [phone]) 559-341908-23-2024 NoteHNO ID: [id number] Author: LISSETTE VUONG RD Service: ? Author Type: Registered Dietitian Type: Progress Notes Filed: 07/01/2024 14:44 Note Text: [facility] Nutrition Therapy: Virtual Consult - Re-assessment I have communicated my name and active licensure. The patient?s identity and physical location were verified at the time of this visit. Either the patient or their legal lifeline representatives has been informed of the risks and benefits of -- and alternatives to -- treatment through a remote evaluation and consents to proceed with the evaluation remotely. Nutrition Diagnosis: Altered Gastrointestinal Tract Function, related to, S/P bariatric surgery, as evidenced by PSH of [facility] RECOMMENDED MALNUTRITION DIAGNOSIS: NO MALNUTRITION IDENTIFIED NUTRITION CARE PLAN: Nutrition Intervention 03/29/2024: Modify type and amount of food at meals and snacks Include a protein source with breakfast Choose high protein snacks to support fullness (see list attached for examples Limit caffeine to 2 servings per day. Drink >64 fl oz water or other decaf/sugar free beverage Gradually increase activity including both cardio and strength exercise Continue taking 1 per day Bariatric Pal MVI with 45 mg of iron and 2362-6825 mg per day calcium citrate Only take 500-600 mg of calcium at one time. Take calcium separate from iron by 2 hours and 4 hours apart from additional calcium. Your protein goal is 74 grams per day Nutrition Monitoring AND Evaluation: Patient update and weight check Need for Follow up: 3 months PROGRESS: Patient presents for follow up nutrition consult 10 months post op [facility]G (Dr. Lynch). Net weight loss 43 pounds (233 lbs initial) 18% TWL - tracking lower than anticipated Pre-surgery weight: 226 pounds 10 pounds weight loss since last assessment (200 lbs) Diet recall indicates somewhat consistent eating pattern. Sometimes missing breakfast due to habit. Continues to experience abdominal pain which started several months after surgery. Worse in the morning, after eating and before bed. Upper GI showed GERD, being treated with pantoprazole but sx's persist. Trouble tolerating corn and tomatoes but otherwise tolerating foods well. She reports increased stress and change in routine impacting eating pattern. Protein intake is not likely meeting recommendations. Snacking more in evening. Beverages not contributing calorically but caffeine intake is high. She is taking all vitamin/minerals. Labs showed improvement in lipid panel and HbA1c. Resting Metabolic Rate: 1403 Energy needs for weight loss 8345-5455 (15-20 g/kg CBW) Protein needs: 74 grams protein per day (1.2 g/kg IBW) Exercise - chair exercise with mom Nutrition Intervention 10/13/23 Follow phase 4 diet including protein and and non-starchy vegetables Include 20-30 grams of protein per meal with additional protein dense snacks to reach daily protein goal of 74 grams Increase water intake to at least 64 fl oz per day Actions to implement interventions: see assessment Diet History: Breakfast - skips OR egg, toast OR steel cut oatmeal Snack - none Lunch - sandwich OR leftovers Snack - fruit Dinner - pasta OR steak salad Snack - popcorn OR chips OR dried fruit Beverages - black coffee, 40-50 fl oz water (cirkul) Vitamins/Supplements - 1 per day Bariatric Pal MVI and Ca citrate with D Activity: 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 Resting Metabolic Rate: 1403 Malnutrition Screening Significant unintentional weight loss? No Eating less than 75% of usual intake for more than 2 weeks? No Potential Signs of Inflammation: no identifiable sources Nutritional status: Education Materials Provided: Snack Ideas READINESS TO LEARN Cognitive ability: Alert and oriented Motivation to learn: Interested Family support: Unable to assess - Family not present Instruction provided to: Patient Patient learns best by: Multiple Methods Factors affecting learning: None Physical limitations affecting learning: None Likelihood of Adherence: Moderate Referred by: Syed BOONE Billing Type: Re-assess/15 min 2 units SIGNATURE: Lissette Vuong RD PATIENT NAME: Shar Daniels DATE: 03/29/2024 TIME: 8:44 AM PAGER:[facility]08-23-2024 History of Present illness Narrative* Lissette Vuong RD - 03/29/2024 8:44 AM EDT [facility] Nutrition Therapy: Virtual Consult - Re-assessment I have communicated my name and active licensure. The patient s identity and physical location wereverified at the time of this visit. Either the patient or their legal lifeline representatives has been informed of the risks and benefits of -- and alternatives to -- treatment through a remote evaluation andconsents to proceed with the evaluation remotely. Nutrition Diagnosis: Altered Gastrointestinal Tract Function, related to, S/P bariatric surgery, asevidenced by PSH of [facility] RECOMMENDED MALNUTRITION DIAGNOSIS: NO MALNUTRITION IDENTIFIED NUTRITION CARE PLAN: Nutrition Intervention 03/29/2024: Modify type and amount of food at meals and snacks Include a protein source with breakfast Choose high protein snacks to support fullness (see list attached for examples Limit caffeine to 2 servings per day. Drink >64 fl oz water or other decaf/sugar free beverage Gradually increase activity including both cardio and strength exercise Continue taking 1 per day Bariatric Pal MVI with 45 mg of iron and 3108-2515 mg per day calcium citrate Only take 500-600 mg of calcium at one time. Take calcium separate from iron by 2 hours and 4hours apart from additional calcium. Your protein goal is 74 grams per day Nutrition Monitoring & Evaluation: Patient update and weight check Need for Follow up: 3 months PROGRESS: Patient presents for follow up nutrition consult 10 months post op [facility] (Dr. Lynch). Net weight loss 43 pounds (233 lbs initial) 18% TWL - tracking lower than anticipated Pre-surgery weight: 226 pounds 10 pounds weight loss since last assessment (200 lbs) Diet recall indicates somewhat consistent eating pattern. Sometimes missing breakfast due to habit.Continues to experience abdominal pain which started several months after surgery. Worse in the morning, after eating and before bed. Upper GI showed GERD, being treated with pantoprazole but sx's persist. Trouble tolerating corn and tomatoes but otherwise tolerating foods well. She reports increased stress and change in routine impacting eating pattern. Protein intake is not likely meeting recommendations. Snacking more in evening. Foods not contributing calorically but caffeine intake is high. She is taking all vitamin/minerals. Labs showed improvement in lipid panel and HbA1c. Resting Metabolic Rate: 1403 Energy needs for weight loss 8057-9401 (15-20 g/kg CBW) Protein needs: 74 grams protein per day (1.2 g/kg IBW) Exercise - chair exercise with mom Nutrition Intervention 10/13/23 Follow phase 4 diet including protein and and non-starchy vegetables Include 20-30 grams of protein per meal with additional protein dense snacks to reach daily proteingoal of 74 grams Increase water intake to at least 64 fl oz per day Actions to implement interventions: see assessment Diet History: Breakfast - skips OR egg, toast OR steel cut oatmeal Snack - none Lunch - sandwich OR leftovers Snack - fruit Dinner - pasta OR steak salad Snack - popcorn OR chips OR dried fruit Beverages - black coffee, 40-50 fl oz water (cirkul) Vitamins/Supplements - 1 per day Bariatric Pal MVI and Ca citrate with D Activity: 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 Resting Metabolic Rate: 1403 Malnutrition Screening Significant unintentional weight loss? No Eating less than 75% of usual intake for more than 2 weeks? No Potential Signs of Inflammation: no identifiable sources Nutritional status: Education Materials Provided: Snack Ideas READINESS TO LEARN Cognitive ability: Alert and oriented Motivation to learn: Interested Family support: Unable to assess - Family not present Instruction provided to: Patient Patient learns best by: Multiple Methods Factors affecting learning: None Physical limitations affecting learning: None Likelihood of Adherence: Moderate Referred by: Syed OLIVERT Billing Type: Re-assess/15 min 2 units SIGNATURE: Lissette Vuong RD PATIENT NAME: Shar Daniels DATE: 03/29/2024 TIME: 8:44 AM PAGER: [facility] Instructions* Patient Instructions* Lissette Vuong RD - 10/13/2023 3:10 PM EST Follow phase 4 diet including protein and and non-starchy vegetables Include 20-30 grams of protein per meal with additional protein dense snacks to reach daily proteingoal of 74 grams Increase water intake to at least 64 fl oz per day documented [facility] NoteHNO ID: [id number] Author: LISSETTE VUONG RD Service: ? Author Type: Registered Dietitian Type: Progress Notes Filed: 10/13/2023 15:10 Note Text: [facility] Nutrition Therapy: Virtual Consult - Re-assessment I have communicated my name and active licensure. The patient?s identity and physical location were verified at the time of this visit. Either the patient or their legal lifeline representatives has been informed of the risks and benefits of -- and alternatives to -- treatment through a remote evaluation and consents to proceed with the evaluation remotely. Nutrition Diagnosis: Altered Gastrointestinal Tract Function, related to, S/P bariatric surgery, as evidenced by PSH of [facility] RECOMMENDED MALNUTRITION DIAGNOSIS: NO MALNUTRITION IDENTIFIED NUTRITION CARE PLAN: Nutrition Intervention 10/13/2023: Modify type and amount of food at meals and snacks Follow phase 4 diet including protein and and non-starchy vegetables Include 20-30 grams of protein per meal with additional protein dense snacks to reach daily protein goal of 74 grams Increase water intake to at least 64 fl oz per day Nutrition Monitoring AND Evaluation: Patient update and weight check Need for Follow up: 3 months PROGRESS: Patient presents for follow up nutrition consult 5 months post op [facility] (Dr. Lynch). Net weight loss 43 pounds (233 lbs initial) 18.5% TWL Pre-surgery weight: 226 pounds 10 pounds weight loss since last assessment (200 lbs) Diet recall indicates somewhat consistent eating pattern. Recently began including protein shake in coffee to prevent skipping breakfast. She reports increased stress has been leading to increased snacking. She also reports potential stomach ulcer and it helps to eat frequently to manage symptoms. Upcoming UGI to further assess. Tolerating most foods well. Advanced diet faster than recommended with introduction of starches. Fluid intake inadequate but appropriate in choice. Taking appropriate vitamin/minerals but needs to increase Ca citrate. Thiamin elevated but has since d/c'd B complex supplement. Resting Metabolic Rate: 1399 Energy needs for weight loss 0309-1480 (15-20 g/kg CBW) Protein needs: 74 grams protein per day (1.2 g/kg IBW) Nutrition Intervention 07/07/23 1. Continue to take 1 Bariatric Pal Multivitamin One (chewable or capsule) and 8683-7084 mg calcium citrate per day. If you decide to switch, here are a few options: Start to explore vitamins and minerals for post-op (page 49 in guidebook): Daily multivitamin, 45-60 mg iron, 7874-2859 mg calcium citrate w/ Vit D, 500 mcg Vit B12 sublingual pill or liquid, 3000 international unit(s) Vit D3, Super B complex with 75-100 mg thiamin *It is ok to take a combination bariatric vitamin to limit pill volume. Here are a few options to consider: - Bariatric Fusion: 4 Complete Multivitamin chewables per day www.bariatricfusion.Partly - Bariatric Choice: 4 All-in-One Bariatric Multivitamin chewables per day www.bariatricchoice.Partly - Bariatric Pal: 4 All-in-One Multivitamin chewables per day www.Feniks.bariatricpal.Partly/collections/bariatric-vitamins - Barimelts: 1 Step Up once daily multivitamin w/ iron and 3213-8387 mg calcium citrate per day [email or web address].Partly 2. Protein goal: 74 grams protein/day 3. Fluid goal: 64 ounces per day (no carbonation, caffeine, calories, alcohol) 4. Exercise goal: increase as tolerated to goal of 200 minutes/week combination cardiovascular and strength training exercise. 5. Practice mindful eating habits-take small portions, eat slowly, chew thoroughly, separate food and drink by 30 min before and after eating You may advance your diet to phase IV ~2 months post op. Refer to your BMI Guideline booklet for recipes and instructions. The goal is to consume at least 74 grams of protein per day with the addition of adding vegetables. Inadequate protein intake can lead to fatigue, loss of lean body mass and increase your risk of infection and other illnesses. Consume 3-4 ounces of protein 3 times per day (3-4 ounces for breakfast; 3-4 ounces for lunch; 3-4 ounces for dinner). As an estimate, 1 ounce of protein is approximately 7 grams. For example, if you consume 3 ounces of chicken, this would equal approximately 21 grams of protein. Always eat your protein foods first before eating the vegetable. Do not begin eating your vegetable first. Vegetables contain little or no protein and protein is essential. During Phase IV, no breads, no cereals, no rice, no noodles, no pastas, no crackers, no potatoes (sweet or white), no yams, no corn, no plantain, no yucca, no fruits, no fruit juices, no carbonation, no caffeine, no alcoholic beverages. Continue to consume sugar-free, noncarbonated, decaffeinated clear liquids in between high protein foods for a total of 64 ounces (8 cups) per day Follow the ?30-Minute Rule? to fluid intake: Wait 30 minutes before and after your pam (more content not included)... [facility]03-08-2024 History of Present illness Narrative* Lissette Vuong, ALESSIO - 10/13/2023 9:25 AM EST [facility] Nutrition Therapy: Virtual Consult - Re-assessment I have communicated my name and active licensure. The patient s identity and physical location wereverified at the time of this visit. Either the patient or their legal lifeline representatives has been informed of the risks and benefits of -- and alternatives to -- treatment through a remote evaluation andconsents to proceed with the evaluation remotely. Nutrition Diagnosis: Altered Gastrointestinal Tract Function, related to, S/P bariatric surgery, asevidenced by PSH of [facility] RECOMMENDED MALNUTRITION DIAGNOSIS: NO MALNUTRITION IDENTIFIED NUTRITION CARE PLAN: Nutrition Intervention 10/13/2023: Modify type and amount of food at meals and snacks Follow phase 4 diet including protein and and non-starchy vegetables Include 20-30 grams of protein per meal with additional protein dense snacks to reach daily proteingoal of 74 grams Increase water intake to at least 64 fl oz per day Nutrition Monitoring & Evaluation: Patient update and weight check Need for Follow up: 3 months PROGRESS: Patient presents for follow up nutrition consult 5 months post op [facility] (Dr. Lynch). Net weight loss 43 pounds (233 lbs initial) 18.5% TWL Pre-surgery weight: 226 pounds 10 pounds weight loss since last assessment (200 lbs) Diet recall indicates somewhat consistent eating pattern. Recently began including protein shake incoffee to prevent skipping breakfast. She reports increased stress has been leading to increased snacking. She also reports potential stomach ulcer and it helps to eat frequently to manage symptoms. U pcoming UGI to further assess. Tolerating most foods well. Advanced diet faster than recommended with introduction of starches. Fluid intake inadequate but appropriate in choice. Taking appropriate vitamin/minerals but needs to increase Ca citrate. Thiamin elevated but has since d/c'd B complex supplement. Resting Metabolic Rate: 1399 Energy needs for weight loss 5846-6743 (15-20 g/kg CBW) Protein needs: 74 grams protein per day (1.2 g/kg IBW) Nutrition Intervention 07/07/23 1. Continue to take 1 Bariatric Pal Multivitamin One (chewable or capsule) and 3824-8364 mg calciumcitrate per day. If you decide to switch, here are a few options: Start to explore vitamins and minerals for post-op (page 49 in guidebook): Daily multivitamin, 45-60 mg iron, 7586-7550 mg calcium citrate w/ Vit D, 500 mcg Vit B12 sublingual pill or liquid, 3000 international unit(s) Vit D3, Super B complex with 75-100 mg thiamin *It is ok to take a combination bariatric vitamin to limit pill volume. Here are a few options to consider: - Bariatric Fusion: 4 Complete Multivitamin chewables per day www.bariatricfusion.com - Bariatric Choice: 4 All-in-One Bariatric Multivitamin chewables per day www.bariatricchoice.com - Bariatric Pal: 4 All-in-One Multivitamin chewables per day www.Feniks.bariatricpal.Partly/collections/bariatric-vitamins - Barimelts: 1 Step Up once daily multivitamin w/ iron and 2939-4102 mg calcium citrate per day www.QuVIS.Partly 2. Protein goal: 74 grams protein/day 3. Fluid goal: 64 ounces per day (no carbonation, caffeine, calories, alcohol) 4. Exercise goal: increase as tolerated to goal of 200 minutes/week combination cardiovascular and strength training exercise. 5. Practice mindful eating habits-take small portions, eat slowly, chew thoroughly, separate food and drink by 30 min before and after eating You may advance your diet to phase IV ~2 months post op. Refer to your BMI Guideline booklet for recipes and instructions. The goal is to consume at least 74 grams of protein per day with the addition of adding vegetables. Inadequate protein intake can lead to fatigue, loss of lean body mass and increase your risk of infection and other illnesses. Consume 3-4 ounces of protein 3 times per day (3-4 ounces for breakfast; 3-4 ounces for lunch; 3-4 ounces for dinner). As an estimate, 1 ounce of protein is approximately 7 grams. For example, if you consume 3 ounces of chicken, this would equal approximately 21 grams of protein. Always eat your protein foods first before eating the vegetable. Do not begin eating your vegetable first. Vegetables contain little or no protein and protein is essential. During Phase IV, no breads, no cereals, no rice, no noodles, no pastas, no crackers, no potatoes (sweet or white), no yams, no corn, no plantain, no yucca, no fruits, no fruit juices, no carbonation,no caffeine, no alcoholic beverages. Continue to consume sugar-free, noncarbonated, decaffeinated clear liquids in between high protein foods for a total of 64 ounces (8 cups) per day Follow the 30-Minute Rule to fluid intake: Wait 30 minutes before and after your food to drink fluids. Important considerations about adding vegetables: When incorporating vegetables, it is recommended that you begin with softly cooked vegetables first. Avoid vegetables that do not become soft when cooked. Avoid fibrous stalks like those found in asparagus, broccoli, celery, stalks of cynthia lettuce, kale, etc. Be cautious of seeds and peels. You may introduce raw vegetables only after you can tolerate a variety of cooked vegetables. Remember to always check for food tolerance. Slowly increase your variety of choices only after you know that you can tolerate it. When eating raw vegetables, it is recommended that you first try softer vegetables such as broccoliflorets, [place] lettuce, red-leaf lettuce or [place] lettuce. Remember to chew vegetables thoroughly (chew 25 times) and swallow only when chewing has made it into a mushy pureed consistency. If you have trouble with gas, avoid eating gas-producing vegetables such as onions, cauliflower, garlic, scallions, leeks, [place] sprouts and cabbage. Avoid starchy vegetables such as potatoes (sweet and white), yams, yucca, plantain and corn at thistime. Actions to implement interventions: see assessment Diet History: Breakfast - oat milk, coffee OR last week started 1/2 protein shake in coffee Snack - - Lunch - salad, 1/2 turkey and cheese wrap Snack - crackers OR mixed nuts Dinner - 2-3 oz protein, starch, +/- green beans Snack - - Beverages - ~30 fl oz water, Protein water, juice/smoothie Vitamins/Supplements - Procare MVI with 45 mg of iron, 1 per day Ca citrate, hair skin and nails Exercise - walking at work Activity: Activities of Daily Living: Active 25% of the day. 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 Resting Metabolic Rate: 1399 Malnutrition Screening Significant unintentional weight loss? No Eating less than 75% of usual intake for more than 2 weeks? No Potential Signs of Inflammation: no identifiable sources Nutritional status: Education Materials Provided: None this visit READINESS TO LEARN Cognitive ability: Alert and oriented Motivation to learn: Interested Family support: Unable to assess - Family not present Instruction provided to: Patient Patient learns best by: Multiple Methods Factors affecting learning: None Physical limitations affecting learning: None Likelihood of Adherence: Moderate Referred by: Strong MNT Billing Type: Re-assess/15 min 2 units SIGNATURE: Lissette Vuong RD PATIENT NAME: Shar Daniels DATE: 10/13/2023 TIME: 9:25 AM PAGER: documented [facility] encounter[facility] History of Present illness Narrative* Micki Jacobs APRN.HEALTH MANAGEMENT CONSULTANT - 09/08/2023 11:30 AM EST Virtual Visit (Audio/Visual)I have discussed the nature of this visit with the patient which will occur via Distance Health (Phone, Virtual Visit) and she agrees to proceed with this interaction. I have communicated my name and active licensure. The patient's identity and physical location wereverified at the time of this visit. Either the patient or their legal lifeline representatives has been informed of the risks and benefits of -- and alternatives to -- treatment through a remote evaluation andconsents to proceed with the evaluation remotely. Name: Shar Daniels Index Surgery Date of Surgery: 05/31/23 Surgeon: Dr.Andrew Lynch Surgical Procedure: Sleeve gastrectomy Pre-surgical weight: 100.7 kg (222 lb) Other Bariatric Surgeries None Visit: 3 month Today's Visit: Wt 85.7 kg (189 lb) BMI 34.57 kg/m2 BMI 34.57 kg/(m^2) Last Visit: Wt: 90.7 kg (200 lb) BMI: 36.58 kg/(m^2) Total weight loss: 15 kg (33 lb) [place] weight: 62 kg (136 lb 11.2 oz) Excess weight: 38.7 kg (85 lb 4.8 oz) % of excess body weight lost: 15 kg (33 lb) (38.69% of excess weight loss) COMPLICATIONS SINCE LAST VISIT?: NONE DIET INTAKE: tolerates Phase V diet +caffeine daily DAILY SUPPLEMENTS: Calcium: No Multivitamin & Minerals: 1 per day Iron Supplement: 45-60 mg Vitamin B12: No Vitamin D3: 2000 IU Other: Protonix EXERCISE: Active at work Are you attending any Support Groups? No attendance Current Outpatient Medications Medication Sig escitalopram oxalate (LEXAPRO) 10 mg tablet Take 5 mg by mouth once daily. levothyroxine (SYNTHROID) 125 mcg tablet Take 1 tablet by mouth once daily. metoprolol tartrate, short acting, (LOPRESSOR) 25 mg tablet Take 25 mg by mouth twice daily. 1/2 tablet in the morning and 1/2 tablet in the evening. pantoprazole DR (PROTONIX) 40 mg tablet Take 1 tablet by mouth two times a day. ondansetron orally disintegrating (ZOFRAN ODT) 4 mg disintegrating tablet Take 1 tablet by mouth every 8 hours as needed for nausea/vomiting. aspirin, enteric coated (ASPIRIN, ENTERIC COATED) 81 mg EC tablet Take 81 mg by mouth once daily. Cholecalciferol, Vitamin D3, 50 mcg (2,000 unit) cap Take by mouth. ferrous sulfate 325 mg (65 mg iron) tablet Take 650 mg by mouth every 48 hours. No current facility-administered medications for this visit. REVIEW OF SYSTEMS: Denies vomiting, dumping syndrome, reactive hypoglycemia, gustatory rhinorrhea, Denies paresthesias, gait abnormality, fatigue, weakness, lower extremity edema, Denies taking NSAIDs +GERD, nausea, abdominal pain after meals. OBESITY MEDICINE COMORBIDITIES: GERD GERD Requiring medication and HTN HTN Requiring medication PHYSICAL EXAM: Deferred, no abdominal issues Assessment A/P: Normal post-OP course Patient Active Problem List Morbid obesity (HCC) History of TIA (transient ischemic attack) Coronary artery disease involving [place] coronary artery of [place] heart without angina pectoris History of cardiomyopathy Asthma Type 2 diabetes mellitus without complication, without long-term current use of insulin (HCC) Post-operative nausea and vomiting Neck pain Left ventricular dysfunction Essential (primary) hypertension Obesity, Class III, BMI >= 40 Presence of stent in coronary artery Fatigue Hypothyroidism Iron deficiency Resolved Hospital Problems No resolved problems to display. DISPOSITION: Return 6 month to EST/Standard office visit EDUCATION: Encouraged to continue with healthy lifestyle changes and incorporate cardiovascular andresistance training, Discussed weight loss expectations after bariatric and metabolic surgery, Advised PT to avoid NSAIDs, smoking tobacco given increased risk of marginal ulcers, or Discussed importance of protein intake as per the RDN note REFERRALS: N/A LABS: Today: See Epic Orders XR UGI order placed today Micki Jacobs APRN.CNP [facility] NoteHNO ID: [id number] Author: MICKI JACOBS APRN.CNP Service: ? Author Type: Nurse Practitioner Type: Progress Notes Filed: 09/08/2023 11:40 Note Text: Virtual Visit (Audio/Visual)I have discussed the nature of this visit with the patient which will occur via [facility] (Phone, Virtual Visit) and she agrees to proceed with this interaction. I have communicated my name and active licensure. The patient's identity and physical location were verified at the time of this visit. Either the patient or their legal lifeline representatives has been informed of the risks and benefits of -- and alternatives to -- treatment through a remote evaluation and consents to proceed with the evaluation remotely. Name: Shar Daniels Index Surgery Date of Surgery: 05/31/23 Surgeon: Dr.Andrew Lynch Surgical Procedure: Sleeve gastrectomy Pre-surgical weight: 100.7 kg (222 lb) Other Bariatric Surgeries None Visit: 3 month Today's Visit: Wt 85.7 kg (189 lb) BMI 34.57 kg/m2 BMI 34.57 kg/(m2) Last Visit: Wt: 90.7 kg (200 lb) BMI: 36.58 kg/(m2) Total weight loss: 15 kg (33 lb) [place] weight: 62 kg (136 lb 11.2 oz) Excess weight: 38.7 kg (85 lb 4.8 oz) % of excess body weight lost: 15 kg (33 lb) (38.69% of excess weight loss) COMPLICATIONS SINCE LAST VISIT?: NONE DIET INTAKE: tolerates Phase V diet +caffeine daily DAILY SUPPLEMENTS: Calcium: No Multivitamin AND Minerals: 1 per day Iron Supplement: 45-60 mg Vitamin B12: No Vitamin D3: 2000 IU Other: Protonix EXERCISE: Active at work Are you attending any Support Groups? No attendance Current Outpatient Medications Medication Sig escitalopram oxalate (LEXAPRO) 10 mg tablet Take 5 mg by mouth once daily. levothyroxine (SYNTHROID) 125 mcg tablet Take 1 tablet by mouth once daily. metoprolol tartrate, short acting, (LOPRESSOR) 25 mg tablet Take 25 mg by mouth twice daily. 1/2 tablet in the morning and 1/2 tablet in the evening. pantoprazole DR (PROTONIX) 40 mg tablet Take 1 tablet by mouth two times a day. ondansetron orally disintegrating (ZOFRAN ODT) 4 mg disintegrating tablet Take 1 tablet by mouth every 8 hours as needed for nausea/vomiting. aspirin, enteric coated (ASPIRIN, ENTERIC COATED) 81 mg EC tablet Take 81 mg by mouth once daily. Cholecalciferol, Vitamin D3, 50 mcg (2,000 unit) cap Take by mouth. ferrous sulfate 325 mg (65 mg iron) tablet Take 650 mg by mouth every 48 hours. No current facility-administered medications for this visit. REVIEW OF SYSTEMS: Denies vomiting, dumping syndrome, reactive hypoglycemia, gustatory rhinorrhea, Denies paresthesias, gait abnormality, fatigue, weakness, lower extremity edema, Denies taking NSAIDs +GERD, nausea, abdominal pain after meals. OBESITY MEDICINE COMORBIDITIES: GERD GERD Requiring medication and HTN HTN Requiring medication PHYSICAL EXAM: Deferred, no abdominal issues Assessment A/P: Normal post-OP course Patient Active Problem List Morbid obesity (HCC) History of TIA (transient ischemic attack) Coronary artery disease involving [place] coronary artery of [place] heart without angina pectoris History of cardiomyopathy Asthma Type 2 diabetes mellitus without complication, without long-term current use of insulin (HCC) Post-operative nausea and vomiting Neck pain Left ventricular dysfunction Essential (primary) hypertension Obesity, Class III, BMI >= 40 Presence of stent in coronary artery Fatigue Hypothyroidism Iron deficiency Resolved Hospital Problems No resolved problems to display. DISPOSITION: Return 6 month to EST/Standard office visit EDUCATION: Encouraged to continue with healthy lifestyle changes and incorporate cardiovascular and resistance training, Discussed weight loss expectations after bariatric and metabolic surgery, Advised PT to avoid NSAIDs, smoking tobacco given increased risk of marginal ulcers, or Discussed importance of protein intake as per the RDN note REFERRALS: N/A LABS: Today: See Epic Orders XR UGI order placed today Micki Jacobs APRN.[facility]12-01-2023 Instructions* Patient Instructions* Giovana Deng, ALESSIO - 07/07/2023 11:43 AM EST Reviewed nutrition principles of: 1. Continue to take 1 Bariatric Pal Multivitamin One (chewable or capsule) and 2747-0462 mg calciumcitrate per day. If you decide to switch, here are a few options: Start to explore vitamins and minerals for post-op (page 49 in guidebook): Daily multivitamin, 45-60 mg iron, 7638-5564 mg calcium citrate w/ Vit D, 500 mcg Vit B12 sublingual pill or liquid, 3000 international unit(s) Vit D3, Super B complex with 75-100 mg thiamin *It is ok to take a combination bariatric vitamin to limit pill volume. Here are a few options to consider: - Bariatric Fusion: 4 Complete Multivitamin chewables per day www.bariatricfusion.com - Bariatric Choice: 4 All-in-One Bariatric Multivitamin chewables per day www.bariatricchoice.com - Bariatric Pal: 4 All-in-One Multivitamin chewables per day www.store.bariatricpal.com/collections/bariatric-vitamins - Barimelts: 1 Step Up once daily multivitamin w/ iron and 5218-5441 mg calcium citrate per day [email or web address].Partly 2. Protein goal: 74 grams protein/day 3. Fluid goal: 64 ounces per day (no carbonation, caffeine, calories, alcohol) 4. Exercise goal: increase as tolerated to goal of 200 minutes/week combination cardiovascular and strength training exercise. 5. Practice mindful eating habits-take small portions, eat slowly, chew thoroughly, separate food and drink by 30 min before and after eating You may advance your diet to phase IV ~2 months post op. Refer to your BMI Guideline booklet for recipes and instructions. The goal is to consume at least 74 grams of protein per day with the addition of adding vegetables. Inadequate protein intake can lead to fatigue, loss of lean body mass and increase your risk of infection and other illnesses. Consume 3-4 ounces of protein 3 times per day (3-4 ounces for breakfast; 3-4 ounces for lunch; 3-4 ounces for dinner). As an estimate, 1 ounce of protein is approximately 7 grams. For example, if you consume 3 ounces of chicken, this would equal approximately 21 grams of protein. Always eat your protein foods first before eating the vegetable. Do not begin eating your vegetable first. Vegetables contain little or no protein and protein is essential. During Phase IV, no breads, no cereals, no rice, no noodles, no pastas, no crackers, no potatoes (sweet or white), no yams, no corn, no plantain, no yucca, no fruits, no fruit juices, no carbonation,no caffeine, no alcoholic beverages. Continue to consume sugar-free, noncarbonated, decaffeinated clear liquids in between high protein foods for a total of 64 ounces (8 cups) per day Follow the 30-Minute Rule to fluid intake: Wait 30 minutes before and after your food to drink fluids. Important considerations about adding vegetables: When incorporating vegetables, it is recommended that you begin with softly cooked vegetables first. Avoid vegetables that do not become soft when cooked. Avoid fibrous stalks like those found in asparagus, broccoli, celery, stalks of cynthia lettuce, kale, etc. Be cautious of seeds and peels. You may introduce raw vegetables only after you can tolerate a variety of cooked vegetables. Remember to always check for food tolerance. Slowly increase your variety of choices only after you know that you can tolerate it. When eating raw vegetables, it is recommended that you first try softer vegetables such as broccoliflorets, [place] lettuce, red-leaf lettuce or [place] lettuce. Remember to chew vegetables thoroughly (chew 25 times) and swallow only when chewing has made it into a mushy pureed consistency. If you have trouble with gas, avoid eating gas-producing vegetables such as onions, cauliflower, garlic, scallions, leeks, [place] sprouts and cabbage. Avoid starchy vegetables such as potatoes (sweet and white), yams, yucca, plantain and corn at thistime. Nutrition Monitoring & Evaluation: BMI < 34 Criteria: weight check and patient update Need for Follow up: 3 months post op, scheduling [phone] documented in [facility] [place] History of Present illness Narrative* Giovana Deng RD - 07/07/2023 9:45 AM EST I have communicated my name and active licensure. The patient's identity and physical location wereverified at the time of this visit. Either the patient or their legal lifeline representatives has been informed of the risks and benefits of -- and alternatives to -- treatment through a remote evaluation andconsents to proceed with the evaluation remotely. Patient reports weight (as measured by home scale) of 200 pounds. AMBULATORY PATIENT EDUCATION NOTE-Shared Nutrition Group TOPIC: LIFE STYLE CHANGES: Post-op weight loss surgery: Diet and Exercise READINESS TO LEARN COGNITIVE ABILITY: Alert and oriented MOTIVATION TO LEARN: Interested FAMILY SUPPORT: Unable to assess - Family not present INSTRUCTION PROVIDED TO: Patient and group PATIENT LEARNS BEST BY: Multiple Methods FACTORS AFFECTING LEARNING: None PHYSICAL LIMITATIONS AFFECTING LEARNING: None LEARNING RESPONSE DIAGNOSIS: Inadequate protein-energy intake, related to: altered GI tract, as evidenced by s/p bariatric surgery Overweight Obesity, related to; food and nutrition related knowledge deficit, as evidenced by BMI above normative standard for age and gender Malnutrition Screening Significant unintentional weight loss? No Eating less than 75% of usual intake for more than 2 weeks? Yes, advancing diet per bariatric protocol Nutritional status: METHOD OF INSTRUCTION: Individual instruction Group class instruction PATIENT / FAMILY RESPONSE: Nutrition outcome statement: Expect attention to diet to assist with weight management and minimum 1200 calories/2 liters of fluids per day. 1 month post op LSG ([place] 05/31/23) Net weight loss 33 pounds (233 lbs initial) Pre-surgery weight: 226 pounds 12% weight loss tracking faster than expected Weight loss since last session 4.8 lbs (204.8 lbs) Diet recall indicates consistent intake with regular protein dense meals and snacks. Following phase III diet appropriate and tracking daily intake. Beverages consumed are appropriate. She reports constipation, but feeling well overall. Physical activity includes active job however not including any structured exercise. 800-900 calories/day - not meeting needs 68-74 g protein/day - falling below needs >64 oz fluid/day - adequate Taking all vitamin/minerals - Bariatric Pal MV One and 1200 mg calcium citrate. Labs not available to assess Resting Metabolic Rate: 1454 Energy needs for weight loss 1899-2987 kcal/day (15-20 ba/kg current weight) Protein needs: 74 grams protein per day (1.2 g/kg IBW kg) Reviewed nutrition principles of: 1. Continue to take 1 Bariatric Pal Multivitamin One (chewable or capsule) and 9407-6817 mg calciumcitrate per day. If you decide to switch, here are a few options: Start to explore vitamins and minerals for post-op (page 49 in guidebook): Daily multivitamin, 45-60 mg iron, 3135-4560 mg calcium citrate w/ Vit D, 500 mcg Vit B12 sublingual pill or liquid, 3000 international unit(s) Vit D3, Super B complex with 75-100 mg thiamin *It is ok to take a combination bariatric vitamin to limit pill volume. Here are a few options to consider: - Bariatric Fusion: 4 Complete Multivitamin chewables per day www.bariatricfusion.com - Bariatric Choice: 4 All-in-One Bariatric Multivitamin chewables per day www.[email or web address].Partly - Bariatric Pal: 4 All-in-One Multivitamin chewables per day www.store.bariatricpal.com/collections/bariatric-vitamins - Barimelts: 1 Step Up once daily multivitamin w/ iron and 0353-2226 mg calcium citrate per day www.QuVIS.Partly 2. Protein goal: 74 grams protein/day 3. Fluid goal: 64 ounces per day (no carbonation, caffeine, calories, alcohol) 4. Exercise goal: increase as tolerated to goal of 200 minutes/week combination cardiovascular and strength training exercise. 5. Practice mindful eating habits-take small portions, eat slowly, chew thoroughly, separate food and drink by 30 min before and after eating You may advance your diet to phase IV ~2 months post op. Refer to your BMI Guideline booklet for recipes and instructions. The goal is to consume at least 74 grams of protein per day with the addition of adding vegetables. Inadequate protein intake can lead to fatigue, loss of lean body mass and increase your risk of infection and other illnesses. Consume 3-4 ounces of protein 3 times per day (3-4 ounces for breakfast; 3-4 ounces for lunch; 3-4 ounces for dinner). As an estimate, 1 ounce of protein is approximately 7 grams. For example, if you consume 3 ounces of chicken, this would equal approximately 21 grams of protein. Always eat your protein foods first before eating the vegetable. Do not begin eating your vegetable first. Vegetables contain little or no protein and protein is essential. During Phase IV, no breads, no cereals, no rice, no noodles, no pastas, no crackers, no potatoes (sweet or white), no yams, no corn, no plantain, no yucca, no fruits, no fruit juices, no carbonation,no caffeine, no alcoholic beverages. Continue to consume sugar-free, noncarbonated, decaffeinated clear liquids in between high protein foods for a total of 64 ounces (8 cups) per day Follow the 30-Minute Rule to fluid intake: Wait 30 minutes before and after your food to drink fluids. Important considerations about adding vegetables: When incorporating vegetables, it is recommended that you begin with softly cooked vegetables first. Avoid vegetables that do not become soft when cooked. Avoid fibrous stalks like those found in asparagus, broccoli, celery, stalks of cynthia lettuce, kale, etc. Be cautious of seeds and peels. You may introduce raw vegetables only after you can tolerate a variety of cooked vegetables. Remember to always check for food tolerance. Slowly increase your variety of choices only after you know that you can tolerate it. When eating raw vegetables, it is recommended that you first try softer vegetables such as broccoliflorets, [place] lettuce, red-leaf lettuce or [place] lettuce. Remember to chew vegetables thoroughly (chew 25 times) and swallow only when chewing has made it into a mushy pureed consistency. If you have trouble with gas, avoid eating gas-producing vegetables such as onions, cauliflower, garlic, scallions, leeks, [place] sprouts and cabbage. Avoid starchy vegetables such as potatoes (sweet and white), yams, yucca, plantain and corn at thistime. Nutrition Monitoring & Evaluation: BMI < 34 Criteria: weight check and patient update Need for Follow up: 3 months post op, scheduling [phone] Appointment Start Time: 9:45am Appointment End Time: 10:49am Time Spent on Consult: 64 minutes - Group Giovana Deng RD documented in this encounterSelect [facility] [place]23 NoteHNO ID: [id number] Author: Giovana Deng RD Service: ? Author Type: Registered Dietitian Type: Progress Notes Filed: 07/07/2023 11:43 AM Note Text: I have communicated my name and active licensure. The patient's identity and physical location were verified at the time of this visit. Either the patient or their legal lifeline representatives has been informed of the risks and benefits of -- and alternatives to -- treatment through a remote evaluation and consents to proceed with the evaluation remotely. Patient reports weight (as measured by home scale) of 200 pounds. AMBULATORY PATIENT EDUCATION NOTE-Shared Nutrition Group TOPIC: LIFE STYLE CHANGES: Post-op weight loss surgery: Diet and Exercise READINESS TO LEARN COGNITIVE ABILITY: Alert and oriented MOTIVATION TO LEARN: Interested FAMILY SUPPORT: Unable to assess - Family not present INSTRUCTION PROVIDED TO: Patient and group PATIENT LEARNS BEST BY: Multiple Methods FACTORS AFFECTING LEARNING: None PHYSICAL LIMITATIONS AFFECTING LEARNING: None LEARNING RESPONSE DIAGNOSIS: Inadequate protein-energy intake, related to: altered GI tract, as evidenced by s/p bariatric surgery Overweight Obesity, related to; food and nutrition related knowledge deficit, as evidenced by BMI above normative standard for age and gender Malnutrition Screening Significant unintentional weight loss? No Eating less than 75% of usual intake for more than 2 weeks? Yes, advancing diet per bariatric protocol Nutritional status: METHOD OF INSTRUCTION: Individual instruction Group class instruction PATIENT / FAMILY RESPONSE: Nutrition outcome statement: Expect attention to diet to assist with weight management and minimum 1200 calories/2 liters of fluids per day. 1 month post op LSG ([place] 05/31/23) Net weight loss 33 pounds (233 lbs initial) Pre-surgery weight: 226 pounds 12% weight loss tracking faster than expected Weight loss since last session 4.8 lbs (204.8 lbs) Diet recall indicates consistent intake with regular protein dense meals and snacks. Following phase III diet appropriate and tracking daily intake. Beverages consumed are appropriate. She reports constipation, but feeling well overall. Physical activity includes active job however not including any structured exercise. 800-900 calories/day - not meeting needs 68-74 g protein/day - falling below needs >64 oz fluid/day - adequate Taking all vitamin/minerals - Bariatric Pal MV One and 1200 mg calcium citrate. Labs not available to assess Resting Metabolic Rate: 1454 Energy needs for weight loss 9143-8391 kcal/day (15-20 ba/kg current weight) Protein needs: 74 grams protein per day (1.2 g/kg IBW kg) Reviewed nutrition principles of: 1. Continue to take 1 Bariatric Pal Multivitamin One (chewable or capsule) and 4989-5920 mg calcium citrate per day. If you decide to switch, here are a few options: Start to explore vitamins and minerals for post-op (page 49 in guidebook): Daily multivitamin, 45-60 mg iron, 4413-3896 mg calcium citrate w/ Vit D, 500 mcg Vit B12 sublingual pill or liquid, 3000 international unit(s) Vit D3, Super B complex with 75-100 mg thiamin *It is ok to take a combination bariatric vitamin to limit pill volume. Here are a few options to consider: - Bariatric Fusion: 4 Complete Multivitamin chewables per day www.bariatricfusion.com - Bariatric Choice: 4 All-in-One Bariatric Multivitamin chewables per day www.bariatricchoice.com - Bariatric Pal: 4 All-in-One Multivitamin chewables per day www.[employer].[email or web address]/collections/bariatric-vitamins - Barimelts: 1 Step Up once daily multivitamin w/ iron and 0294-3795 mg calcium citrate per day [email or web address].Partly 2. Protein goal: 74 grams protein/day 3. Fluid goal: 64 ounces per day (no carbonation, caffeine, calories, alcohol) 4. Exercise goal: increase as tolerated to goal of 200 minutes/week combination cardiovascular and strength training exercise. 5. Practice mindful eating habits-take small portions, eat slowly, chew thoroughly, separate food and drink by 30 min before and after eating You may advance your diet to phase IV ~2 months post op. Refer to your BMI Guideline booklet for recipes and instructions. The goal is to consume at least 74 grams of protein per day with the addition of adding vegetables. Inadequate protein intake can lead to fatigue, loss of lean body mass and increase your risk of infection and other illnesses. Consume 3-4 ounces of protein 3 times per day (3-4 ounces for breakfast; 3-4 ounces for lunch; 3-4 ounces for dinner). As an estimate, 1 ounce of protein is approximately 7 grams. For example, if you consume 3 ounces of chicken, this would equal approximately 21 grams of protein. Always eat your protein foods first before eating the vegetable. Do not begin eating your vegetable first. Vegetables contain little or no protein and protein is essential. During (more content not included)...[facility]11-29-2023 Note HNO ID: [id number] Author: Maisha Lennon, PhD Service: ? Author Type: Physician Type: Progress Notes Filed: 07/07/2023 8:59 PM Note Text: [facility] DEPARTMENT OF PSYCHIATRY [facility] PSYCHOLOGY/[facility] Bariatric Behavioral Services Progress Note July 05, 2023 Billing codes: NIGEL CARSON [id number] [place] CPT Code: - 57889 Brief Emotional/Behavioral Assessment with scoring/documentation - [id number] Virtual Group Psychotherapy Time initiated session: 12:00 PM to 1:00 PM I have communicated my name and active licensure. The patient's identity and physical location were verified at the time of this visit. Either the patient or their legal lifeline representatives has been informed of the risks and benefits of -- and alternatives to -- treatment through a remote evaluation/session and consents to proceed with the group intervention remotely. Platform: [employer] Session #: 1 with undersigned clinician Index Surgery Date of Surgery: 05/31/2023 Surgeon: SYED Surgical Procedure: 1. Laparoscopic sleeve gastrectomy 2. Intraoperative upper gastrointestinal endoscopy 3. Laparoscopic transversus abdominus plan block Pre-surgical weight: 222 lb Psychologist: Jennifer Olguin, PhD Subjective: Ms. Daniels returns for a 1 month follow-up. Patients were reminded of the limits of confidentiality in the group setting and agreed to hold in confidence all matters discussed in the group. The patient's hospital experience and adjustment postsurgery were discussed. Patient discussed benefits they were experiencing after surgery and processed complications. Tools to enhance postsurgical outcomes, including coping skills for social situations and resources such as bariatric support groups, were offered. Patient set goals for lifestyle changes to enhance surgical outcomes. Patient identified challenges to accomplishing goals and lifestyle changes. Discussed normalization of adjustment issues. She describes a post-surgery recovery as complicated by dehydration. Post-surgically, the patient reports dehydration needing IV fluids and constipation. The following post-surgical psychological complications were reported: irritability. Ms. Daniels describes working on behavior modification to get adequate protein, fluids, vitamins, and exercise. She denied binge eating, graze eating, tobacco use, and alcohol use. Future goals include: continue behavior modification, and advance diet as tolerated per BMI Nutrition Feels better after IV fluids On soft food diet and is learning what she can and cannot tolerate Misses caffeine Has increased Lexapro The patient reports weighing 1x/week. She identified the following non-scale victories: losing inches, clothes are looser Patient mood described as good. Affect is Appropriate and Mood congruent. Patient denies any suicidal or homicidal ideation, plan or intent at this time. Objective: pt arrived on time and paid excellent attention Patient Data Alcohol Use Disorders Identification Test - Short Version (AUDIT-C) AUDIT-C 06/28/2023 TOTAL SCORE 0 How often do you have a drink containing alcohol? Never How many drinks containing alcohol do you have on a typical day when you are drinking? 0 - 2 How often do you have four or more drinks on one occasion? Never In men, a score of 4 or more is considered positive; in women, a score of 3 or more is considered positive. Generally, the higher the AUDIT-C score, the more likely it is that the patient's drinking is affecting his/her health and safety Generalized Anxiety Disorder Scale (MCKENZIE-7) MCKENZIE - 7 SCORES 01/11/2023 03/06/2023 06/28/2023 MCKENZIE-7 Score 2 0 2 (0-4) minimal anxiety, (5-9) mild anxiety, (10-14) moderate anxiety, (15-21) severe anxiety Patient Health Questionnaire (PHQ-9) PHQ-9 01/11/2023 03/06/2023 06/28/2023 Score 3 1 1 (0-4) minimal depression, (5-9) mild depression, (10-14) moderate depression, (15-19) moderately severe depression, (20-27) severe depression Assessment: Psychological Factors Affecting a Medical Condition post-gastric surgery syndrome) Current Outpatient Medications Medication Sig pantoprazole DR (PROTONIX) 40 mg tablet Take 1 tablet by mouth two times a day. ondansetron orally disintegrating (ZOFRAN ODT) 4 mg disintegrating tablet Take 1 tablet by mouth every 8 hours as needed for nausea/vomiting. escitalopram oxalate (LEXAPRO) 10 mg tablet Take 5 mg by mouth once daily. levothyroxine (SYNTHROID) 125 mcg tablet Take 1 tablet by mouth once daily. metoprolol tartrate, short acting, (LOPRESSOR) 25 mg tablet Take 25 mg by mouth twice daily. 1/2 tablet in the morning and 1/2 tablet in the evening. aspirin, enteric coated (ASPIRIN, ENTERIC COATED) 81 mg EC tablet Take 81 mg by mouth once daily. Cholecalciferol, Vitamin D3, 50 mcg (2,000 unit) cap Take by mouth. ferrous sulfate 325 mg (65 mg iron) tablet (more content not included)... [facility]11-20-2023 Miscellaneous Notes* Telephone Encounter - Tresa Wong RN - 06/26/2023 11:51 AM EST BMI SPECIALTY CARE COORDINATION TELEPHONE ENCOUNTER Chief complaint & duration gerd, gnawing feeling.. Type of procedure: sleeve gastrectomy with Dr. Lynch in May of 2023. Nursing assessment (subjective/objective) pt called in and stated she had been drinking coffee 3 wks post op daily. 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 Since the symptoms reported became worse pt.stopped the caffeine.. Reports following diet and tolerating. Phase 3. Taking increase dose of Pantoprazole. Prescribed daily but now taking a second dose at night. Reports struggling getting fluid intake,and only getting 32oz. Advised that caffeine contributes todehydration and that is why it is not recommended. Pt VU Also instructed to make an appt with PCP for IVF/hydration.. gnawing feeling could be nausea. Recommendation: F/U my chart or call after appt with PCP to get IVF. Advised to stop drinking caffeine. Pt VU. Cont vitamins. Will update Dr Lynch [facility] Miscellaneous Notes* Telephone Encounter - Karlie Soni HUC - 06/23/2023 4:03 PM EST BMI Incoming Patient Nursing Line Call Summary: Situation/Concerns:shar has been having acid reflex, burning, and stomach pain. PLease call her [phone] Background/Duration of event: N/A Assessment/Subjective symptoms: as noted above. Recommendation/How message sent to provider/nurse:Tresa via Telephone Encounter. LELAND Miller documented in this encounter[facility] [place] History of Present illness Narrative* Alfredo Zapata PA-C - 06/16/2023 4:10 PM EST This visit was conducted as a virtual visit. Name: Shar Daniels Index Surgery Date of Surgery: 05/31/2023 Surgeon: SYED Surgical Procedure: 1. Laparoscopic sleeve gastrectomy 2. Intraoperative upper gastrointestinal endoscopy 3. Laparoscopic transversus abdominus plan block Pre-surgical weight: 222 lb Other Bariatric Surgeries None Visit: Today's Visit: There were no vitals taken for this visit. No weight on file for this encounter. Last Visit: Wt: 92.9 kg (204 lb 12.8 oz) BMI: 37.46 kg/(m^2) Total weight loss: [place] weight: 62 kg (136 lb 11.2 oz) Excess weight: % of excess body weight lost: 0 kg (0 lb) COMPLICATIONS SINCE LAST VISIT?: NONE DIET INTAKE: phase 3 DAILY SUPPLEMENTS: Calcium: Calcium Citrate w/ vitamin D (1200 - 1500mg) Multivitamin & Minerals: 1 per day Iron Supplement: 45-60 mg Vitamin B12: 1000 mcg Vitamin D3: 2000 IU Other: Protonix EXERCISE: walking Are you attending any Support Groups? Current Outpatient Medications Medication Sig pantoprazole DR (PROTONIX) 40 mg tablet Take 1 tablet by mouth two times a day. ondansetron orally disintegrating (ZOFRAN ODT) 4 mg disintegrating tablet Take 1 tablet by mouth every 8 hours as needed for nausea/vomiting. scopolamine (TRANSDERM-SCOP) patch 1.5 mg/72 hr (delivers 1 mg over 3 days) Apply 1 Patch as directed every 72 hours. escitalopram oxalate (LEXAPRO) 10 mg tablet Take 5 mg by mouth once daily. levothyroxine (SYNTHROID) 125 mcg tablet Take 1 tablet by mouth once daily. metoprolol tartrate, short acting, (LOPRESSOR) 25 mg tablet Take 25 mg by mouth twice daily. 1/2 tablet in the morning and 1/2 tablet in the evening. aspirin, enteric coated (ASPIRIN, ENTERIC COATED) 81 mg EC tablet Take 81 mg by mouth once daily. Cholecalciferol, Vitamin D3, 50 mcg (2,000 unit) cap Take by mouth. ferrous sulfate 325 mg (65 mg iron) tablet Take 650 mg by mouth every 48 hours. No current facility-administered medications for this visit. REVIEW OF SYSTEMS: Denies nausea, vomiting, dumping syndrome, reactive hypoglycemia, gustatory rhinorrhea, Denies abdominal pain, constipation, diarrhea, melena, hematochezia, Denies paresthesias, gait abnormality, fatigue, weakness, lower extremity edema, and Denies taking NSAIDs OBESITY MEDICINE COMORBIDITIES: PHYSICAL EXAM: Deferred, no abdominal issues Assessment A/P: Normal post-OP course Patient Active Problem List Morbid obesity (HCC) History of TIA (transient ischemic attack) Coronary artery disease involving [place] coronary artery of [place] heart without angina pectoris History of cardiomyopathy Asthma Type 2 diabetes mellitus without complication, without long-term current use of insulin (HCC) Post-operative nausea and vomiting Neck pain Left ventricular dysfunction Essential (primary) hypertension Obesity, Class III, BMI >= 40 Presence of stent in coronary artery Fatigue Hypothyroidism Iron deficiency Resolved Hospital Problems No resolved problems to display. DISPOSITION: Return 3 month to [facility] visit EDUCATION: Encouraged to continue with healthy lifestyle changes and incorporate cardiovascular andresistance training, Discussed weight loss expectations after bariatric and metabolic surgery, Advised PT to avoid NSAIDs, smoking tobacco given increased risk of marginal ulcers, or Discussed importance of protein intake as per the RDN note REFERRALS: N/A LABS: Today: 1) reviewed importance of hydration, protein in take 2) reviewed medications 3) protonix for 6 months 4) RTC in 3 months for medicine follow up 5) reviewed symptoms of concerns ie nausea vomiting, GERD to contact the office 6) reviewed importance of daily use of MVI 7) follow up with PCP for on going care and medication management Alfredo Zapata PA-C documented in this encounter[facility] History of Present illness Narrative* Kami Hercules RD - 06/14/2023 12:54 PM EST This visit was performed virtually due to the COVID-19 epidemic as an effort to protect patients and minimize exposure. Consent from patient received to conduct visit virtually. This Team Access Model visit is a virtual GROUP encounter. It required patient-provider interaction for the medical decision making as documented below. I have communicated my name and active licensure. The patient s identity and physical location wereverified at the time of this visit. Either the patient or their legal lifeline representatives has been informed of the risks and benefits of -- and alternatives to -- treatment through a remote evaluation andconsents to proceed with the evaluation remotely. Patient reports weight (as measured by home scale) of 204.8 pounds. AMBULATORY PATIENT EDUCATION NOTE-Shared Nutrition Group TOPIC: LIFE STYLE CHANGES: Post-op weight loss surgery: Diet and Exercise READINESS TO LEARN COGNITIVE ABILITY: Alert and oriented MOTIVATION TO LEARN: Interested FAMILY SUPPORT: Unable to assess - Family not present INSTRUCTION PROVIDED TO: Patient PATIENT LEARNS BEST BY: Multiple Methods FACTORS AFFECTING LEARNING: None PHYSICAL LIMITATIONS AFFECTING LEARNING: None LEARNING RESPONSE DIAGNOSIS: Inadequate protein-energy intake, related to: s/p bariatric surgery, as evidenced by patient update, diet recall, and group discussion Overweight Obesity, related to; food/nutrition - related knowledge deficit, as evidenced by BMI above normative standard for age and gender Malnutrition Screening Significant unintentional weight loss? No Eating less than 75% of usual intake for more than 2 weeks? Yes, advancing diet per bariatric protocol Nutritional status: METHOD OF INSTRUCTION: Individual instruction Group class instruction PATIENT / FAMILY RESPONSE: Nutrition outcome statement: Expect attention to diet to assist with weight management and minimum 500 calories/2 liters of fluids per day. Patient participated in a 2 week post-op shared nutrition group. Post-op weight loss surgery (LSG) (Dr. Lynch) . Weight loss: 29 lbs since initial assessment (233 lbs); 12% loss total body weight. Pre surgery weight: 226 lbs. Weight loss tracking above expected from surgery. Tolerating phase 3 diet without difficulty. Protein needs estimated at 74 grams protein per day (1.2 g/kg IBW kg). Current intake meeting ~ 100% protein needs. Fluid consumption falling below recommendations, averaging 30 oz per day and includes water as primary beverage Patient is taking some recommended vitamin/minerals (Bariatric Pal MVI), but lacking calcium citrate due to intolerance. Exercise includes walking. Labs not available to evaluate. Reviewed nutrition principles of: 1. Continue vitamins - Bariatric Pal: 1 Multivitamin One (chewable or capsule) and 0746-4568 mg calcium citrate per day OR 4 All-in-One Multivitamin chewables per day www.[employer]eni[employer].bariatric[employer] Stream [email or web address]/collections/bariatric-vitamins 2. Protein goal: 74 grams protein/day 3. Fluid goal: 64 ounces per day (no carbonation, caffeine, calories, alcohol) - separate foods andfluids by 20 minutes, small sips, no straw 4. Exercise goal: begin low intensity exercise until cleared by surgeon. 5. Practice mindful eating habits-take small portions, eat slowly, and chew thoroughly You have lost 12% total weight loss (average 6-9% at 1 month) Read Nutritional Guidelines Section of Your Guide to Surgery for additional information: https://[email or web address]/-/scassets/files/org/[email or web address]/guides/bmiguideboo k-[email or web address]?la=en The [facility] [place] [facility] has 2 virtual support group meetings: This is the Webex link with meeting number that will be used for all of the MONDAY virtual support groups this year, on the Monday of each month 5:30-6:30PM Join from the meeting link [email or web address] Join by meeting number Meeting number (access code): [phone] Meeting password: [email or web address] The schedule with dates, times, topics, and facilitators can be found here: [email or web address] This is the Kliqed link with meeting number that will be used for the Open Discussion (Food for Thought) support group on the Monday of each month 5:30-6:30PM Join from the meeting link [email or web address] Join by meeting number Meeting number (access code): [phone] Meeting password: [email or web address] Hope to see you there! Nutrition Monitoring & Evaluation: BMI < 35 Criteria: patient recall Need for Follow up: 1 month post op Appointment Start Time: 11:45 AM Appointment End Time: 12:33 PM Time Spent on Consult: 48 minutes - Group Kami Hercules RD documented in this encounterSelect [facility]23 Instructions* Patient Instructions* Kami Hercules RD - 06/14/2023 12:54 PM EST 1. Continue vitamins - Bariatric Pal: 1 Multivitamin One (chewable or capsule) and 2942-5725 mg calcium citrate per day OR 4 All-in-One Multivitamin chewables per day www.store.bariatricpal.com/collections/bariatric-vitamins 2. Protein goal: 74 grams protein/day 3. Fluid goal: 64 ounces per day (no carbonation, caffeine, calories, alcohol) - separate foods andfluids by 20 minutes, small sips, no straw 4. Exercise goal: begin low intensity exercise until cleared by surgeon. 5. Practice mindful eating habits-take small portions, eat slowly, and chew thoroughly You have lost 12% total weight loss (average 6-9% at 1 month) Read Nutritional Guidelines Section of Your Guide to Surgery for additiona information: [email or web address]/-/scassets/files/org/[email or web address]/guides/bmiguideboo k-[email or web address]?la=en The [facility] [place] [facility] has 2 virtual support group meetings: This is the Kliqed link with meeting number that will be used for all of the MONDAY virtual support groups this year, on the Monday of each month 5:30-6:30PM Join from the meeting link [email or web address] Join by meeting number Meeting number (access code): [phone] Meeting password: [email or web address] The schedule with dates, times, topics, and facilitators can be found here: [email or web address] This is the Kliqed link with meeting number that will be used for the Open Discussion (Food for Thought) support group on the Monday of each month 5:30-6:30PM Join from the meeting link [email or web address] Join by meeting number Meeting number (access code): [phone] Meeting password: [email or web address] Hope to see you there! Nutrition Monitoring & Evaluation: BMI < 35 Criteria: patient recall Need for Follow up: 1 month post op documented in this encounterSelect [facility]23 Miscellaneous Notes* Telephone Encounter - Soledad Siegel RN - 06/12/2023 2:51 PM EST PATIENT INFORMATION Record ID: [id number] Patient Name: [facility] [place]: [facility] [place] Attending: Tree Lynch Center: General Surgery INSTRUCTIONS SN to remind patient of appointment date, time, location All Clear All Clear SURVEY INFORMATION Medical/Nurse Bladder Changer: Soledad Siegel 1. Your discharge instructions are important in guiding you through the recovery process. Is there anything I could help you clarify on your discharge instructions? (Standard Question) No, All clear 2. Do you have a follow up appointment related to your hospital stay scheduled within the next 30 days? (Standard Question) Yes 3. Do you have any of the following new symptoms related to your wound?; Creamy white or foul smelling drainage Increasing redness or swelling, Increasing pain (Red Flag Question) No, no concerns at all 4. Are you tolerating your pain with your current medication? (Red Flag Question) Yes, I can tolerate my pain 5. Many patients have concerns about their medications once they are home. Do you have any questions about getting or taking your medications? (Standard Question) No 6. Do you have any new or different symptoms? (Standard Question) No documented in this encounterSelect [facility]23 Miscellaneous Notes* Telephone Encounter - Tresa Wong RN - 06/06/2023 11:11 AM EDT BMI SPECIALTY CARE COORDINATION POST-OP TELEPHONE CALL BMI Post Op Telephone Call Pt was called on the second day after discharge. DO YOU HAVE A COPY OF YOUR DISCHARGE INSTRUCTIONS YES Is there anything in your discharge instructions that you do not understand? NO Pain: tolerable. and taking Oxycodone occasionally. On a scale of 0-10, 0 being not satisfied and 10 being very satisfied, how satisfied were you with your pain management strategy after surgery? 10 Patient instructed not to take any narcotic pain medications (such as Roxicodone) within three hours before bedtime as it may cause breathing difficulty. If you are having pain at bedtime you may take Tylenol (liquid form or two extra strength tablets). Phase 2 full liquid diet:: tolerating diet. and pt estimates 60 grams of protein and 32-45 oz of fluid daily.encouraged fluid intake popsicles, broth, jello Incisions: surgical glue intact GI: +flatus encouraged MOM : WNL Medications: Taking as instructioned at discharge PPI and scopolamine CPAP USE: N/A Remind patient of post op appt. Reminded patient of how to reach [facility] or their surgeons office. Patient reminded to seek medical attention if they develop chest pain, a sudden onset of shortness of breath or persistent pain in the calf of their legs - BEST TO ALWAYS present to [facility] hospital where you had your surgery Patient verbalized understanding of all advice and instructions given. COVID-19 Symptoms: denies . Tresa Wong RN documented in this encounterSelect [facility]23 History of Past illness Narrative* Problem Noted Date Diagnosed Date Resolved Date Thyroid activity decreased 1 Alban's thyroiditis 11/05 documented as of this encounter (statuses as of 05/18/2023) [facility] History of Past illness Narrative* Problem Noted Date Diagnosed Date Resolved Date Thyroid activity decreased 1 Alban's thyroiditis 11/05 documented as of this encounter (statuses as of 05/18/2023) [facility] History of Past illness Narrative* Problem Noted Date Diagnosed Date Resolved Date Thyroid activity decreased 1 Alban's thyroiditis 11/05 documented as of this encounter (statuses as of 05/18/2023) [facility] History of Past illness Narrative* Problem Noted Date Diagnosed Date Resolved Date Thyroid activity decreased 1 Alban's thyroiditis 11/05 documented as of this encounter (statuses as of 06/06/2023) [facility] History of Past illness Narrative* Problem Noted Date Diagnosed Date Resolved Date Thyroid activity decreased 1 Alban's thyroiditis 11/05 documented as of this encounter (statuses as of 06/11/2023) [facility] History of Past illness Narrative* Problem Noted Date Diagnosed Date Resolved Date Thyroid activity decreased 1 Alban's thyroiditis 11/05 documented as of this encounter (statuses as of 06/13/2023) [facility] of Past illness Narrative* Problem Noted Date Diagnosed Date Resolved Date Thyroid activity decreased 1 Alban's thyroiditis 11/05 documented as of this encounter (statuses as of 06/15/2023) [facility] of Past illness Narrative* Problem Noted Date Diagnosed Date Resolved Date Thyroid activity decreased 1 Alban's thyroiditis 11/05 documented as of this encounter (statuses as of 06/19/2023) [facility] History of Past illness Narrative* Problem Noted Date Diagnosed Date Resolved Date Thyroid activity decreased 1 Alban's thyroiditis 11/05 documented as of this encounter (statuses as of 06/26/2023) [facility] of Past illness Narrative* Problem Noted Date Diagnosed Date Resolved Date Thyroid activity decreased 1 Alban's thyroiditis 11/05 documented as of this encounter (statuses as of 06/26/2023) [facility] of Past illness Narrative* Problem Noted Date Diagnosed Date Resolved Date Thyroid activity decreased 1 Alban's thyroiditis 11/05 documented as of this encounter (statuses as of 07/07/2023) [facility] of Past illness Narrative* Problem Noted Date Diagnosed Date Resolved Date Thyroid activity decreased 1 Alban's thyroiditis 11/05 documented as of this encounter (statuses as of 09/08/2023) [facility] of Past illness Narrative* Problem Noted Date Diagnosed Date Resolved Date Thyroid activity decreased 1 Alban's thyroiditis 11/05 documented as of this encounter (statuses as of 10/13/2023) [facility] Instructions* Patient Instructions* Anders Olivier APRN.HEALTH MANAGEMENT CONSULTANT - 05/18/2023 11:28 AM EDT PATIENT PREOPERATIVE INSTRUCTIONS Tree Lynch MD has scheduled you for your procedure at this surgery center: [facility] [place] [facility] Scheduling Office: [phone] --[address] [place] [address]. Please read below carefully for your personalized instructions. Dietary Restrictions: - Follow bowel prep instructions: clear liquids need to be stopped 2 hours prior to schedule arrival at facility Medications: Unless instructed differently below, stay on all of your medications until your surgery. If you start any new medications after today's visit, please contact your surgeon. Pre-Surgery Med Instructions Medication Instructions aspirin, enteric coated (ASPIRIN, ENTERIC COATED) 81 mg EC tablet Take the day of surgery with a small sip of water Cholecalciferol, Vitamin D3, 50 mcg (2,000 unit) cap Do not take the day of surgery escitalopram oxalate (LEXAPRO) 10 mg tablet Take the day of surgery with a small sip of water ferrous sulfate 325 mg (65 mg iron) tablet Do not take the day of surgery levothyroxine (SYNTHROID) 125 mcg tablet Take the day of surgery with a small sip of water metoprolol tartrate, short acting, (LOPRESSOR) 25 mg tablet Take the day of surgery with a small sip of water pantoprazole DR (PROTONIX) 40 mg tablet Take the day of surgery with a small sip of water If you start any new medications after today's visit, please contact the surgeon's office. Blood Thinning Medications: - Stop NSAIDS (Ibuprofen, Advil, Aleve, Motrin, Celebrex, Mobic, etc.) 7 days before surgery, as directed by your surgeon. - Do NOT stop aspirin or other anticoagulants without consulting with your education sales consultant or prescribing physician. - Stop Vitamin E, ALL multi-vitamins, herbals and dietary supplements 7 days before surgery. - You may take Tylenol (Acetaminophen) or any of your pain medications that do not contain aspirin or NSAIDS as needed. Important Reminders: - If you are prescribed inhalers for breathing, continue using them. - Candy, mints, and tobacco products are NOT permitted the morning of surgery. - Hearing aids, dentures and glasses may be worn the morning of surgery. - NO jewelry, body piercings, makeup, hairpins or contacts are to be worn the day of surgery. If you develop symptoms such as a fever, cold, or flu, or have other changes to your health within TWO DAYS of scheduled surgery or the morning of surgery, please contact the surgery center above. Personal Belongings: -Please have photo ID and insurance cards. -If you do not have a copy of advance directives on file with us, please bring a copy with you on the day of surgery. - Leave ALL valuables and money at home or with family members. Arrival Time for Surgery: - To obtain your arrival time for surgery, call your physician's office the day before your surgery. - If your surgery is scheduled for Monday, call the Monday before. Your surgeon s operating room scheduler will tell you what time to call the office. - If you have not reached the departmental operating room scheduler by 5 P.M., call [phone] after 5 P.M. the day before your surgery. Please be aware that emergency situations arise, which may delay or change your surgical time. If this happens, we will notify you as soon as possible and regret any inconvenience. If you already have an Advance Directive, please fax a copy to [phone] or email to for it to be added to your chart. If you do not have an Advance Directive, you can find the appropriate form and more information at [email or web address]. We recommend that youcomplete the Advance Directive form found on the website and bring it with you the day of your surgery. It can be witnessed and scanned into your chart that day. Anders Olivier APRN.ETTA documented in this encounter[facility] [place] History of Present illness Narrative* Tresa Wong RN - 05/18/2023 10:53 AM EDT BMI SPECIALTY CARE COORDINATION SURGERY PRE-OP EDUCATION NOTE AMBULATORY PATIENT EDUCATION NOTE TOPIC: LIFE STYLE CHANGES: Diet and Exercise HEALTH PROMOTION: Complication prevention Diet Exercise Follow up management VTE Prevention Measure Mechanical Self Management READINESS TO LEARN COGNITIVE ABILITY: Alert and oriented MOTIVATION TO LEARN: Eager FAMILY SUPPORT: Unable to assess - Family not present INSTRUCTION PROVIDED TO: Patient PATIENT LEARNS BEST BY: Multiple Methods FACTORS AFFECTING LEARNING: None PHYSICAL LIMITATIONS AFFECTING LEARNING: None LEARNING RESPONSE DIAGNOSIS: Morbid Obesity METHOD OF INSTRUCTION: Teach Back s/s of wound infection PATIENT / FAMILY RESPONSE: Verbalizes understanding of: INFECTION MANAGEMENT- Signs and symptoms of an infection and importance of contacting the physician MEDICAL REGIMEN-Importance of following prescribed medical regimen MEDICATION DOSE MISSED-Correct action to take if medication dose is missed MEDICATION PRESCRIBED-Accurate knowledge of prescribed medication prior to discharge MEDICATION ROUTE-Correct route for administration of the prescribed medication MEDICATION SIDE EFFECTS-Side effects associated with the medication that warrant a call to the physician PAIN MANAGEMENT-Effective strategies to manage pain in addition to pain medication PHYSICAL RESTRICTIONS-Physical restrictions and recommendations after discharge from the hospital POST-OPERATIVE INSTRUCTIONS-Correct actions to take to reduce postoperative complications POST-PROCEDURE INSTRUCTIONS-Correct actions to take to reduce post procedure complications PRE-OPERATIVE INSTRUCTIONS-Correct action to take to follow pre-operative instructions PRE-PROCEDURE INSTRUCTIONS-Correct action to take to follow pre-procedure instructions SELF INJECTION- Correct procedure to administer self injection using clean technique SYMPTOM MANAGEMENT-Correct actions to take to manage symptoms associated with his/her disease/illness VTE prevention measures WORSENING CONDITION-Signs and symptoms of a worsening condition that warrant a call to the physician FOLLOW-UP PLAN: Patient instructed to call with any further issues Follow-up with Primary Care Follow up phone call. Contact information given. SUPPLEMENTAL MATERIAL: Your Surgical Guide REFERRAL (RECOMMENDATION): None Surgery Pre-Op Education Note in Nurse Visit Education video modules viewed by the patient: Yes Postop prescriptions provided to the patient: Yes Postop Surgeon Visit scheduled: Yes On-Call & Clinic Phone Number given to the Patient: Yes Pre surgery checklist reviewed: Yes Patient Instructions for the Liquid Diet: Day Before Surgery - Liquid Diet Instruction Review 1. Last Protein shake should be before 6 pm. 2. It is important that you stay hydrated - 64 ounces of fluid per day. 3. Drink a 28-32 ounce bottle of a regular (not sugar free) sport drink (Gatorade, Powerade, etc.) the night prior to surgery. If the sport drinks aren t tolerable, may substitute with no sugar added - no pulp juice - apple, cranberry, lemonade, white grape or orange. Day of Surgery Clear Liquid Diet Drink 12-20 ounces of a regular sport drink (or juice as above) stop liquids 2 hours before scheduled arrival time. Other Instructions Reviewed: Skin Preparation: Skin cleanse with antibacterial soap, Yahaira, wound care, vitamin & nutrients, activity restrictions post op, discharge instructions & surgical guide, incentive spirometry;diet progression-karla phase I & II & 2wk liquid diet prior to surgery, activity level & pt responsibility during hospitalization. Sleep Apnea: Patient has sleep apnea? No. Do not take pain medication three hours before bedtime as it may cause breathing difficulty. If you are having pain at bedtime you may take two Extra Strength Tylenol. Tresa Wong RN documented in this encounterSelect [facility] [place]10-[facility]23 History and physical note * Anders Olivier APRN.HEALTH MANAGEMENT CONSULTANT - 05/18/2023 10:50 AM EDT Images from the original note were not included. HISTORY AND PHYSICAL EXAMINATION SERVICE DATE: 05/18/2023 SERVICE TIME: 11:15 AM PRIMARY CARE PHYSICIAN: Susanna De CNP REASON FOR VISIT: Shar Daniels is a 57 year old female who is scheduled for LAPAROSCOPIC LONGITUDINAL GASTRECTOMY, GASTRIC RESTRICTIVE PROCEDURE on 05/31/2023 at [facility] at the request of Dr. Tree Lynch for consultation. My final recommendation will be communicated back to the requesting physician by way of shared medical record or letter. The patient has the following: ACTIVE PROBLEM LIST Hypothyroidism Iron Deficiency Fatigue Obesity, Class III, BMI >= 40 Presence of Stent in Coronary Artery Neck Pain Left Ventricular Dysfunction Essential (Primary) Hypertension History of Tia (Transient Ischemic Attack) Coronary Artery Disease Involving [place] Coronary Artery of [place] Heart Without Angina Pectoris History of Cardiomyopathy Asthma Type 2 Diabetes Mellitus Without Complication, Without Long-Term Current Use of Insulin (Hcc) Post-Operative Nausea and Vomiting Subjective CHIEF COMPLAINT: Pre-op examination; Class 3 severe obesity due to excess calories with serious comorbidity and body mass index (BMI) of 40.0 to 44.9 in adult HPI: Patient is a 57 year old female presenting to [facility]; scheduled for LAPAROSCOPIC LONGITUDINAL GASTRECTOMY, GASTRIC RESTRICTIVE PROCEDURE. Patient has pmhx of Class 3 severe obesity due to excess calories with serious comorbidity and body mass index (BMI) of 40.0 to 44.9 in adult. Body mass index is 41.34 kg/m . Patient denies recent fevers, chills, unexplained weight loss. The above surgery was recommended; patient has elected to proceed. 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 Iron deficiency Migraine headache Obesity TIA (transient ischemic attack) 10/2022 Vitiligo PAST SURGICAL HISTORY Procedure Laterality Date LAPAROSCOPIC CHOLECYSTECTOMY LAPAROSCOPY DIAGNOSTIC Laproscopy: for adhesions PCI/STENT 2017 FAMILY HISTORY Problem Relation Age of Onset Heart Mother Thyroid Mother Hypothyroidism other (Vitiligo) Mother Alcohol/Drug Father Diabetes Father Heart Father Thyroid Sister Hypothyroidism other (Vitiligo) Sister Thyroid Sister Hypothyroidism Anesthesia Problems No Family History SOCIAL HISTORY: Social History Tobacco Use Smoking status: Never Passive exposure: Never Smokeless tobacco: Never Vaping Use Vaping Use: Never used Substance Use Topics Alcohol use: Yes Comment: 3-4 times a year per pt 05/18/2023 Drug use: No Prior to Admission medications as of 05/18/23 1130 Medication Sig Last Dose Taking aspirin, enteric coated (ASPIRIN, ENTERIC COATED) 81 mg EC tablet Take 81 mg by mouth once daily. Taking Yes Cholecalciferol, Vitamin D3, 50 mcg (2,000 unit) cap Take by mouth. Taking Yes escitalopram oxalate (LEXAPRO) 10 mg tablet Take 5 mg by mouth once daily. Taking Yes ferrous sulfate 325 mg (65 mg iron) tablet Take 650 mg by mouth every 48 hours. Taking Yes levothyroxine (SYNTHROID) 125 mcg tablet Take 1 tablet by mouth once daily. Taking Yes metoprolol tartrate, short acting, (LOPRESSOR) 25 mg tablet Take 25 mg by mouth twice daily. 1/2 tablet in the morning and 1/2 tablet in the evening. Taking Yes ondansetron (ZOFRAN) 4 mg tablet Take 1 tablet by mouth every 8 hours as needed for nausea/vomiting. pantoprazole DR (PROTONIX) 40 mg tablet Take 1 tablet by mouth once daily. Taking Yes scopolamine (TRANSDERM-SCOP) patch 1.5 mg/72 hr (delivers 1 mg over 3 days) Apply 1 Patch as directed every 72 hours. No medication comments found. ALLERGIES Allergen Reactions Hydrochlorothiazide Other: See Comments Lowers potassium level to critical Adhesive Tape-Silic* Rash Lisinopril Cough Vxdszef-Ila-Rcb Red* Swelling Sulfa (Sulfonamide * Rash, Itching COVID VACCINATION STATUS: Fully vaccinated REVIEW OF SYSTEMS: PAIN ASSESSMENT: General: No weight loss, malaise or fevers. Neuro: Hx of TIA. Negative for seizures. Respiratory: + Asthma. Negative for Pneumonia within 6 weeks (date), URI < 2 weeks Cardiovascular: + HTN, CAD s/p stents. Hx of cardiomyopathy (during , resolved). Negative for DVT/PE. Denies current chest pain, palpitations, fluttering. GI: No history of GI symptoms or problems. No history of esophageal varices, recent ascites, or ETOH greater than 2 drinks per day. : No history of dysuria, frequency or incontinence,, stones or chronic kidney disease TUNGSTEN REFINER: Negative for abnormal vaginal bleeding, abnormal vaginal discharge. : Denies, No LMP recorded. Patient is postmenopausal. Endocrine: + Hypothyroidism, Diabetes Mellitus. Hematology: No history of bleeding or clotting disorder. Pt is not taking anti- coagulation or platelet medications. No history of hematological symptoms or problems. Oncology: No history of CA metastasis, chemo within 30 days, or radiotherapy within 90 days. Has not lost 10% of body wt in 6 months. No history of oncological symptoms or problems. Psych: No history of psychiatric symptoms or problems. Musculoskeletal: + Back pain and Joint pain Skin: Negative for lesions, rash and itching. Objective PHYSICAL EXAM: VITALS: BP 129/77 Pulse 61 Temp (Src) 97.9 (Oral) Resp 18 Ht 5' 2 (1.58m) Wt 226 lb (102.5kg) SpO2 97% BMI 41.33 kg/(m^2). General: Alert and oriented, No acute distress, Morbidly obese. Body mass index is 41.34 kg/m . Skin: Normal color, no rash, no lesions. HEENT: EOM, pupils equal, round and reactive. Cardiovascular: Normal S1 & S2, no rubs, murmurs or gallops. No JVD. Pulse regular. Lungs: Normal breath sounds, no wheezes or crackles. Abdomen: Positive bowel sounds Extremities: Joint tenderness. Neurological: Normal cognition and motor skills. Pulses: Carotid and radial pulses normal +2. Diagnostic tests reviewed for today's visit: Lab Value Units Date High Low HB 13.4 g/dL 05/18/2023 15.5 11.5 HCT 41.4 % 05/18/2023 46.0 36.0 WBC 7.46 k/uL 05/18/2023 11.00 3.70 PLT 283 k/uL 05/18/2023 400 150 NA 138 mmol/L 04/21/2023 144 136 K 2.8 mmol/L 04/21/2023 5.1 3.7 GLUC 152 mg/dL 04/21/2023 99 74 BUN 13 mg/dL 04/21/2023 21 7 CREAT 0.78 mg/dL 04/21/2023 0.96 0.58 PTSEC No results within date range. INR No results within date range. APTT No results within date range. ALT 13 U/L 04/21/2023 38 7 AST 14 U/L 04/21/2023 35 13 TBILI 1.3 mg/dL 04/21/2023 1.3 0.2 TSH 0.598 mIU/L 01/06/2023 4.200 0.270 Lab Value Units Date High Low HCGQT No results within date range. UHCG No results within date range. HCG, BODY* No results within date range. Lab Value Units Date High Low ABORHD No results within date range. ABSCREEN No results within date range. Hemoglobin A1C (%) Date Value 01/06/2023 6.6 LABS PENDING Stress Test 04/28/23 ECG 01/27/23 Echo 11/29/22 Assessment/Plan History of TIA (transient ischemic attack) Hx of TIA November 2022. Patient was admitted to an OSH. No residual. Essential (primary) hypertension Stable on Metoprolol 25 mg twice daily. BP today 129/77. Coronary artery disease involving [place] coronary artery of [place] heart without angina pectoris S/p stents in 2018. Outside stress test 04/28/23 showed no evidence of signficiant ischemia or infarction. Patient denies recent chest pain, palpitations, fluttering, shortness of breath. Follows with outside Cardiology, Anabel Abraham at [facility] on an annual basis. See note scanned in on 05/01/23, low risk for planned surgery. Stable on Aspirin 81 mg daily. History of cardiomyopathy Hx of cardiomyopathy during , resolved. Outside echo 11/29/22 showed - left ventricular systolic function is normal, the estimated ejection fraction is 53% Asthma Patient has exercise induced asthma. She is prescribed an Albuterol inhaler as needed. Last required it 1 month ago. Hypothyroidism Stable on Levothyroxine 125 mcg daily. Type 2 diabetes mellitus without complication, without long-term current use of insulin (HCC) Patient was previously taking Victoza but is now holding for surgery, last dose 05/12/23. HgbA1C 01/06/23 - 6.6% Obesity, Class III, BMI >= 40 Body mass index is 41.34 kg/m . Post-operative nausea and vomiting Patient has hx of post-op nausea and vomiting. She has a scopolamine patch ordered by surgeon's office - states she was told anesthesia would place it DOS. METS: Climb a flight of stairs or walk up a hill (5.50 METs) Patient denies any chest pain or undue shortness of breath with the above physical activity. ASA Class: 3 ANESTHESIA FINDINGS: Intubation History: No history of difficult intubation Significant Anesthesia Considerations: Postop nausea/vomiting. Patient denies slow emergence, life-threatening reactions to anesthesia. Airway Exam: General: Morbid obesity. Body mass index is 41.34 kg/m . Mallampati Score is CLASS II ULBT: Class I - Lower incisors can bite the upper lip above the shola line Neck: Limited movement extension Mouth: Normal tongue size and Mouth opening greater than 2 finger breaths Dentition: Caps/crowns. Missing tooth. Airway History: No abnormal airway history 05/15/2023 Sleep Apnea Probability Snores loudly: No Tired, fatigued or sleepy in daytime: Yes Stops breathing or choking/gasping during sleep: No High blood pressure: Yes Sleep Apnea Probability Score 05/15/2023 Sleep Apnea Screen V2 35 (Sleep study not recommended) PLAN This patient is optimally prepared for surgery pending LABS. CONSULTS: The following consults have been initiated at this time: Cardiology - See document scanned in on 05/01/23. The Following Tests/Procedures Have Been Initiated: Orders Placed This Encounter CBC with Differential Standing Status: Future Number of Occurrences: 1 Standing Expiration Date: 07/18/2023 CMP Standing Status: Future Number of Occurrences: 1 Standing Expiration Date: 07/18/2023 Type and Screen, 30 day Standing Status: Future Number of Occurrences: 1 Standing Expiration Date: 07/18/2023 Planned Anesthetic: Per anesthesia choice Instructions Given to Patient: Instructions located in the after visit summary. Patient given verbal and written preop instructions and voices comprehension and compliance. SIGNATURE: Anders Olivier APRN.CNP PATIENT NAME: Shar Daniels DATE: May 18, 2023 TIME: 12:45 PM documented in this encounterSelect [facility] [place] History and physical note * Tree Lynch MD - 05/18/2023 9:00 AM EDT BARIATRIC SURGERY PREOPERATIVE VISIT NOTE SERVICE DATE: 05/18/2023 SUBJECTIVE: Patient is doing well. She started her clear liquid diet yesterday. She was evaluated by her education sales consultant. Patient has otherwise no major complaints. Shar Daniels is a 57 year old female seen in Bariatric Surgery clinic today for their final preoperative assessment. WEIGHT Current BMI: There is no height or weight on file to calculate BMI. 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 No JVD. Pulse regular. Lungs: Normal breath sounds, no wheezes or crackles. Abdomen: Soft, non-tender, no rigidity. The remainder of the physical exam is noncontributory. MEDICATIONS: Prior to Admission Medications: aspirin, enteric coated (ASPIRIN, ENTERIC COATED) 81 mg EC tablet Take 81 mg by mouth once daily. Cholecalciferol, Vitamin D3, 50 mcg (2,000 unit) cap Take by mouth. escitalopram oxalate (LEXAPRO) 10 mg tablet Take 5 mg by mouth once daily. ferrous sulfate 325 mg (65 mg iron) tablet Take 650 mg by mouth every 48 hours. levothyroxine (SYNTHROID) 125 mcg tablet Take 1 tablet by mouth once daily. metoprolol tartrate, short acting, (LOPRESSOR) 25 mg tablet Take 25 mg by mouth twice daily. 1/2 tablet in the morning and 1/2 tablet in the evening. No current facility-administered medications for this visit. VISIT NOTE: This patient was seen in clinic today to obtain informed consent and discuss the details of their upcoming operation including the appropriate expectations for perioperative and postoperative care. In addition, preoperative and postoperative relevant prescriptions were provided and explained duringthis clinic visit. The consent discussion included the risks, benefits and anticipated outcomes of the procedure, the risks and benefits of the alternatives to the procedure, and the roles and tasks of the personnel mimi involved. The patient had an opportunity to ask additional questions that were answered. The patient expressed that they understood. A consent form was signed today. Prescriptions were explained and provided to the patient. Postoperative VTE risk is 0.16% according to VTE Risk Calculator. Script for extended prophylaxis was not provided. Postoperative risk is 1.89% according to the Sleeve Risk Calculator. Preoperative requirements: Preoperative Checklist for Bariatric Surgery Checklist Items Completed Not Completed Preoperative H & P today Preoperative labs (including fasting glucose, blood typing and A1C) today Preoperative cardiac work-up (EKG / ECHO) Yes scanned docs 05/01 GI evaluation (UGI / EGD) if needed yes Pulmonary evaluation (Patient to bring CPAP mask day of surgery) No Consult placed for difficult IV access if needed Yes Postoperative medications prescribed yes Nutrition evaluation yes Psychosocial evaluation yes YAHAIRA and preop videos confirmation today Stop OCP's, Aspirin, Anticoagulation prior to surgery Yes Smoking cessation - Urine cotinine ordered if needed No Planned post op ICU admission Not indicated SIGNATURE: Tree Lynch MD, PATIENT NAME: Shar Daniels Advanced Laparoscopic & Bariatric Surgery DATE: May 18, 2023 CSN: [id number] TIME: 7:34 AM documented in this encounterSelect [facility] [place] Instructions* Patient Instructions* Giovana Deng RD - 05/15/2023 11:17 AM EDT Nutrition Intervention 05/15/2023: Reviewed pre-op and post-op diet guidelines: 1. Start the full liquid diet 2 weeks before surgery using only the approved protein shakes. Choosefrom these options: 4 1/2 bottles Slim Fast High Protein OR 5 bottles Atkins (15 g protein) OR 4 1/2 bottles Boost Glucose Control OR 4 1/2 bottles OWYN (20 g protein) OR 5 1/2 packets [place] Breakfast Essentials Light Start mixed with fat free or 1% milk 2. Drink at least 64 oz of fluid per day (no calories, no caffeine, no carbonation). Acceptable beverages include water, sugar-free flavoring packets such as Crystal Lite, broth, sugar-free jello or popsicles, decaffeinated coffee or tea, Gatorade or Powerade Zero. 3. Take a Super B Complex vitamin with 75-100 mg of Thiamin daily during the liquid diet before andafter surgery. 4. Day before surgery: - Finish your last protein shake before 6 pm - Drink 28-32 fl oz of regular sports drink (Gatorade, Powerade, etc.) 5. Day of surgery: - Drink 12-20 fl oz of regular sports drink - Stop drinking liquids 2 hours before scheduled arrival time 6. Advance diet as tolerated after surgery (see page 61 in guidebook): - Phase 1: Sugar-free, clear liquid diet (only in the hospital) - Phase 2: High protein, full liquid diet. Try to consume at least 60 grams of protein per day in the form of high protein shakes. Aim to drink 4-8 fl oz of protein shake 3 times per day. Try to drink at least 64 oz per day of water or other clear liquids between shakes. - Phase 3: Soft, high protein foods. Try to consume 3-4 oz of protein 3 times per day from poultry,beef, fish, seafood, eggs, cheese, yogurt, cottage cheese, beans, lentils, tofu. Choose meat products that are tender, shredded and/or ground to increase tolerance. 7. Remember to take small bites, chew well, and eat slowly. Do not drink anything 30 minutes before, during, or until 30 minutes after eating. Take small sips of fluid and do not use a straw. 8. Begin taking daily vitamins/minerals when you start Phase 3 diet (page 49 in guidebook): Daily multivitamin, 45-60 mg iron, 1059-3738 mg calcium citrate w/ Vit D, 500 mcg Vit B12 sublingual pill or liquid, 3000 international unit(s) Vit D3, Super B complex with 75-100 mg thiamin It is ok to take a combination bariatric vitamin to limit pill volume. Here are a few options to consider: - Bariatric Fusion: 4 Complete Multivitamin chewables per day OR 1 Multivitamin capsule and 2746-9529 mg calcium citrate per day OR 2 Multivitamin soft chews per day + 3 calcium citrate soft chews + 1 iron soft chew per day [email or web address] - Bariatric Choice: 4 All-in-One Bariatric Multivitamin chewables per day OR 1 Once Daily BariatricMultivitamin capsule and 1069-0438 mg calcium citrate per day [email or web address] - Bariatric Pal: 4 All-in-One Multivitamin chewables per day OR 1 Multivitamin One (chewable or capsule) and 2919-2097 mg calcium citrate per day [email or web address] [email or web address].[email or web address]/collections/[email or web address]-vitamins - Bariatric Advantage: 1 Ultra Solo multivitamin w/ iron (chewable or capsule) OR 2 chewable Advanced Multi EA w/ iron and 9071-7940 mg calcium citrate per day OR 2 Multi Chewy Bites and 6037-0748 mgcalcium citrate and 45-60 mg iron per day [email or web address] - Procare Health: 1 Bariatric Multivitamin w/ iron (capsule or chewable) and 7781-4006 mg calcium citrate per day [email or web address].[email or web address] - Celebrate: 2 Multi-Complete (chewable or capsule) OR 1 CelebrateOne Multivitamin capsule and 9619-5583 mg calcium citrate per day OR 2 Multivitamin soft chews + 3 calcium citrate soft chews + 1 iron soft chew per day [email or web address] - Barilife: 1 Just One Bariatric Multivitamin w/ iron (chewable or capsule) and 9925-3822 mg calcium citrate per day www.[email or web address] - Barimelts: 2 Multivitamin w/ iron tablets and 6194-4267 mg calcium citrate per day www.[email or web address] Nutrition Monitoring & Evaluation: Follow pre and post op diet and fluid guidelines Criteria: weight check and patient report Need for Follow up: 2 weeks post op [facility] [place] History of Present illness Narrative* Giovana Deng RD - 05/15/2023 11:14 AM EDT I have communicated my name and active licensure. The patient's identity and physical location wereverified at the time of this visit. Either the patient or their legal lifeline representatives has been informed of the risks and benefits of -- and alternatives to -- treatment through a remote evaluation andconsents to proceed with the evaluation remotely. Patient reports weight (as measured by home scale) of 219 pounds. TOPIC: LIFE STYLE CHANGES: Pre-op weight loss surgery (LSG, Dr. Lynch): Diet and Exercise PROGRESS: Nutrition Intervention (date of last encounter 01/26/23): Modify type and amount of foods consumed for meals and snacks Please call [phone], option 5. Leave a message for the navigation team when you are finishedwith all clearances (nutrition, psychology, medical, surgeon) 1. Protein goal: 74 grams protein/day 2. Fluid goal: 64 oz per day water (no calories, no caffeine, no carbonation, no alcohol) 3. Exercise goal: 150-250 minutes per week, including 10-20 min of strength/resistance exercise 2-3x/week 4. Practice mindful eating habits- eat protein first, take small portions, eat slowly, chew thoroughly 20-30x before swallowing, practice eating and drinking by 30 min. 5. Start the full liquid diet (2) weeks prior to surgery using, 5 individual cartons of Atkins 15 gshakes per day, continue a minimum of 64 oz water per day during this time. No solid food. May havesugar free popsicle and sugar free jello. 6. During the 2 week liquid diet before surgery include a daily Super B-Complex vitamin with 75-100mg thiamin 7. Advance diet per guidebook post surgery (refer to page 49) 8. Begin taking vitamins/minerals after starting solid foods: Daily multivitamin, iron 45-60 mg (morning), calcium citrate w/ Vit D 600 mg at lunch and 600 mg at dinner, Vit B12 500 mcg sublingual pill or liquid, Vit D3 3000 IU, B complex with 75-100 mg thiamin *It is ok to take a combination bariatric vitamin to limit pill volume. Here are a few options to consider: - Bariatric Fusion: 4 Complete Multivitamin chewables per day OR 1 Multivitamin capsule and 7553-3728 mg calcium citrate per day OR 2 Multivitamin soft chews per day + 3 calcium citrate soft chews + 1 iron soft chew per day [email or web address] - Procare Health: 1 Bariatric Multivitamin w/ iron (capsule or chewable) and 2810-6243 mg calcium citrate per day [email or web address].[email or web address] - Bariatric Choice: 1 Once Daily Bariatric Multivitamin capsule and 6217-0095 mg calcium citrate per day OR 4 All-in-One Bariatric Multivitamin chewables per day www.[email or web address].[email or web address] - Bariatric Advantage: 1 Ultra Solo multivitamin w/ iron (chewable or capsule) OR 2 chewable Advanced Multi EA w/ iron and 7206-6604 mg calcium citrate per day OR 2 Multi Chewy Bites and 2876-6093 mgcalcium citrate and 45-60 mg iron per day [email or web address] - Celebrate: 2 Multi-Complete (chewable or capsule) OR 1 CelebrateOne Multivitamin capsule and 3792-5626 mg calcium citrate per day OR 2 Multivitamin soft chews + 3 calcium citrate soft chews + 1 iron soft chew per day [email or web address] - Bariatric Pal: 1 Multivitamin One (chewable or capsule) and 2577-8709 mg calcium citrate per day OR 4 All-in-One Multivitamin chewables per day [email or web address]/[email or web address] - Barilife: 1 Just One Bariatric Multivitamin w/ iron (chewable or capsule) and 5063-9802 mg calcium citrate per day www.[email or web address].Partly - Barimelts: 2 Multivitamin w/ iron tablets and 8787-6167 mg calcium citrate per day www.[email or web address].[email or web address] Take multivitamin with iron 2 hours apart from calcium citrate, and take each dose of calcium 4 hours apart from each other Pre-op weight goal: 223 lbs CHANGES IN TREATMENT: Patient met goal(s): Partially Diagnosis: has not changed. Allergies: Adhesive Tape-Silicones, Lisinopril, Wawbgsh-Yfq-Umb Reductase Inhibitors, and Sulfa (Sulfonamide Antibiotics) Anthropometrics: Height: Last 1 Encounter Ht Readings: Date: Ht: 05/15/2023 157.5 cm (5' 2) Weight: Last 1 Encounter Wt Readings: Date: Wt: 05/15/2023 99.3 kg (219 lb) Body mass index is 40.06 kg/m . Resting Metabolic Rate: 1540 Malnutrition Screening Significant unintentional weight loss? No Eating less than 75% of usual intake for more than 2 weeks? No Nutritional status: Educational materials provided: Post bariatric surgery nutrition and vitamins READINESS TO LEARN Cognitive ability: Alert and oriented Motivation to learn: Interested Family support: Unable to assess - Family not present Instruction provided to: Patient Patient learns best by: Multiple Methods Factors affecting learning: None Physical limitations affecting learning: None Likelihood of Adherence: Moderate Patient participated in preop bariatric surgery shared nutrition appointment and participated actively in group. Patient is scheduled for surgery 05/31 and plans to start pre-op diet 05/17. She will follow the full liquid diet and using Atkins protein shakes. Patient has all appropriate beverages and Super B complex supplement with appropriate thiamin. She plans on taking Bariatric Pal multivitamin and calcium citrate post op. Nutrition Diagnosis: Overweight/obesity, related to, decreased energy needs, as evidenced by BMI above normative standard for age and gender. Nutrition Intervention 05/15/2023: Reviewed pre-op and post-op diet guidelines: 1. Start the full liquid diet 2 weeks before surgery using only the approved protein shakes. Choosefrom these options: 4 1/2 bottles Slim Fast High Protein OR 5 bottles Atkins (15 g protein) OR 4 1/2 bottles Boost Glucose Control OR 4 1/2 bottles OWYN (20 g protein) OR 5 1/2 packets Sussex Breakfast Essentials Light Start mixed with fat free or 1% milk 2. Drink at least 64 oz of fluid per day (no calories, no caffeine, no carbonation). Acceptable beverages include water, sugar-free flavoring packets such as Crystal Lite, broth, sugar-free jello or popsicles, decaffeinated coffee or tea, Gatorade or Powerade Zero. 3. Take a Super B Complex vitamin with 75-100 mg of Thiamin daily during the liquid diet before andafter surgery. 4. Day before surgery: - Finish your last protein shake before 6 pm - Drink 28-32 fl oz of regular sports drink (Gatorade, Powerade, etc.) 5. Day of surgery: - Drink 12-20 fl oz of regular sports drink - Stop drinking liquids 2 hours before scheduled arrival time 6. Advance diet as tolerated after surgery (see page 61 in guidebook): - Phase 1: Sugar-free, clear liquid diet (only in the hospital) - Phase 2: High protein, full liquid diet. Try to consume at least 60 grams of protein per day in the form of high protein shakes. Aim to drink 4-8 fl oz of protein shake 3 times per day. Try to drink at least 64 oz per day of water or other clear liquids between shakes. - Phase 3: Soft, high protein foods. Try to consume 3-4 oz of protein 3 times per day from poultry,beef, fish, seafood, eggs, cheese, yogurt, cottage cheese, beans, lentils, tofu. Choose meat products that are tender, shredded and/or ground to increase tolerance. 7. Remember to take small bites, chew well, and eat slowly. Do not drink anything 30 minutes before, during, or until 30 minutes after eating. Take small sips of fluid and do not use a straw. 8. Begin taking daily vitamins/minerals when you start Phase 3 diet (page 49 in guidebook): Daily multivitamin, 45-60 mg iron, 5643-8667 mg calcium citrate w/ Vit D, 500 mcg Vit B12 sublingual pill or liquid, 3000 international unit(s) Vit D3, Super B complex with 75-100 mg thiamin It is ok to take a combination bariatric vitamin to limit pill volume. Here are a few options to consider: - Bariatric Fusion: 4 Complete Multivitamin chewables per day OR 1 Multivitamin capsule and 9226-2299 mg calcium citrate per day OR 2 Multivitamin soft chews per day + 3 calcium citrate soft chews + 1 iron soft chew per day www.[email or web address] - Bariatric Choice: 4 All-in-One Bariatric Multivitamin chewables per day OR 1 Once Daily BariatricMultivitamin capsule and 9551-3273 mg calcium citrate per day www.[email or web address] - Bariatric Pal: 4 All-in-One Multivitamin chewables per day OR 1 Multivitamin One (chewable or capsule) and 8488-2209 mg calcium citrate per day [email or web address]/[email or web address] - Bariatric Advantage: 1 Ultra Solo multivitamin w/ iron (chewable or capsule) OR 2 chewable Advanced Multi EA w/ iron and 2519-8456 mg calcium citrate per day OR 2 Multi Chewy Bites and 7020-2055 mgcalcium citrate and 45-60 mg iron per day www.[email or web address] - Procare Health: 1 Bariatric Multivitamin w/ iron (capsule or chewable) and 5908-8648 mg calcium citrate per day www.Enodo Software - Celebrate: 2 Multi-Complete (chewable or capsule) OR 1 CelebrateOne Multivitamin capsule and 9307-0383 mg calcium citrate per day OR 2 Multivitamin soft chews + 3 calcium citrate soft chews + 1 iron soft chew per day [email or web address] - Barilife: 1 Just One Bariatric Multivitamin w/ iron (chewable or capsule) and 3198-2027 mg calcium citrate per day www.[email or web address].Partly - Barimelts: 2 Multivitamin w/ iron tablets and 1874-8591 mg calcium citrate per day www.[email or web address] Nutrition Monitoring & Evaluation: Follow pre and post op diet and fluid guidelines Criteria: weight check and patient report Need for Follow up: 2 weeks post op Appointment Start Time: 9:45am Appointment End Time: 10:43am Time Spent on Consult: 58 minutes - Group SIGNATURE: Giovana Deng RD PATIENT NAME: Shar Daniels DATE: 05/15/2023 TIME: 11:14 AM documented in this encounter[facility] [place] Miscellaneous Notes* Telephone Encounter - Tresa Wong RN - 04/18/2023 12:03 PM EDT [facility] SPECIAL[facility] CARE COORDINATION SURGERY APPROVAL CALL Received e-mail confirmation of insurance approval for bariatric surgery.Pre- operative call placed to the patient, this RN spoke with patient and agreed upon a surgery date of May 31 2023. Surgical episode request sent to [facility] surgery scheduling. Patient understands that the surgery type is Sleeve Gastrectomy as approved by insurance. Creatinine level 0.71 Patient instructed to start pre-op 800 calorie total protein liquid diet Atkins (5) daily beginning2 weeks prior to surgery. - Stop all ASA and NSAID products, [place] 3 fish oil, herbal products such as ginko etc. Stop vitamins EXCEPT B COMPLEX- take this up to the day before surgery - Medication List reviewed and patient will contact prescribing physician regarding use of blood thinners - Talk with your prescribing MD - may need bridging before surgery while on pre-operative diet. baby asa 81 mg for stent - diuretics were prescribed with blood pressure pills - Patient denies use of estrogen products . Talk with your prescribing MD if you take the following - should be monitored closely during the preoperative liquid diet with most held at the start of the diet given the . ALL of these medications should AT LEAST be held the day prior to surgery. Actos Amaryl Glipizide Glucophage Metformin Anti-obesity medications - stop 1 week before surgery Phentermine Qsymia Contrave Vyvanse Diethylproprion Phendimetrazine Saxenda Wegovy SGLT2 inhibitors should be stopped 3-4 days before surgery - avoid using during the first weeks following bariatric surgery because of the risk of dehydration, Jardiance Farxiga Invokana Sleep apnea requiring treatment? No. Patient will require FMLA forms to be completed? Yes, Pt instructed to fax FMLA forms to [email or web address] and allow 7-10 days for completion. - Yahaira video assigned. - All questions and concerns addressed and patient verbalized understanding. - Patient case reviewed. All nutrition appointments completed, psychology clearance obtained, surgeon visit and procedure type verified, medical optimization obtained and all testing complete. Does patient have Con ABO? No, patient does not have Con ABO and it has been ordered. Tresa Wong RN documented in this encounter[facility] [place] History of Present illness Narrative* Jennifer Olguin, PhD - 03/09/2023 10:01 AM EDT [facility] BEHAVIORAL HEALTH EVALUATION DATE OF SERVICE: March 10, 2023 TIME OF SERVICE: 11:04-12:10pm COST CENTER: [facility] CPT CODE: - [id number] Virtual Psych Diagnostic Eval + Brief assessment w/ scoring & documentationx3 BILLING CODE: VY MANNING MAIN [facility] SESSION #: 1 The patient e-signed the Informed Consent for Psychological Evaluation & Care Form, and the [facility] care insurance benefits, fees for service, emergency procedures, and the limits of confidentiality that may pertain with any given case were discussed with the patient. The patient was given a copy of the consent form on [employer]. The patient consented to a virtual visit and their location was confirmed. IDENTIFYING INFORMATION Ms. Shar Daniels is a 57 year old female. She was referred by Dr. Lynch . Ms. Daniels is seekinggastric sleeve for morbid obesity. COLLATERAL PARTIES PRESENT: none. MOTIVATION FOR SURGERY / UNDERSTANDING OF PROCEDURE / EXPECTATIONS: Ms. Daniels notes she is motivated for surgery by medical problems. The patient has a good understanding of the surgery, risks, and benefits. She has talked with other people who have undergone the procedure. Specific areas of understanding that should be addressed include unrealistic expectations post surgery. The patient has not attended a weight loss surgery support group. The patient expects to lose 50-70 lbs. following surgery over 2-3 months, suggesting unrealistic expectations about the timeline of weight loss. However, she was amenable to education about more realistic expectations. Other expectations include HTN, wanting to improve her health for her grandchildren, and increased longevity. Educated patient regarding expected weight loss after surgical procedure and timeline of weight loss/surgery recovery. CAPACITY TO CONSENT: Ms. Daniels evidences the following concerns regarding capacity to consent: none noted. MEDICAL PROBLEMS ACTIVE PROBLEM LIST Iron Deficiency Hypothyroidism Due to Alban's Thyroiditis Fatigue Obesity, Class III, BMI >= 40 Presence of Stent in Coronary Artery Neck Pain Left Ventricular Dysfunction Essential (Primary) Hypertension Past surgeries? Yes PAST SURGICAL HISTORY Procedure Laterality Date LAPAROSCOPIC CHOLECYSTECTOMY LAPAROSCOPY DIAGNOSTIC Laproscopy: for adhesions History of psychological complications post-surgery? Yes: reported depressed mood following stent placement in 2018, which was more about adjusting to her heart disease diagnosis MEDICATIONS Current Outpatient Medications Medication Sig escitalopram oxalate (LEXAPRO) 10 mg tablet Take 5 mg by mouth once daily. levothyroxine (SYNTHROID) 125 mcg tablet Take 1 tablet by mouth once daily. metoprolol tartrate, short acting, (LOPRESSOR) 25 mg tablet Take 25 mg by mouth twice daily. 1/2 tablet in the morning and 1/2 tablet in the evening. aspirin, enteric coated (ASPIRIN, ENTERIC COATED) 81 mg EC tablet Take 81 mg by mouth once daily. Cholecalciferol, Vitamin D3, 50 mcg (2,000 unit) cap Take by mouth. ferrous sulfate 325 mg (65 mg iron) tablet Take 650 mg by mouth every 48 hours. No current facility-administered medications for this visit. Psychiatric medication: LEXAPRO. ALLERGIES ALLERGIES Allergen Reactions Adhesive Tape-Silic* Rash Lisinopril Cough Dztjqwa-Gcr-Vdo Red* Swelling Sulfa (Sulfonamide * Rash, Itching EATING/WEIGHT HISTORY: Ms. Daniels was very thin as a child. Her weight at age 19 was 104 lbs. The patient reports the following factors as contributing to weight gain: Alban's disease, ,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 OR 4 All-in-One Multivitamin chewables per day www.80 Degrees Westbariatricpal.Partly/collections/bariatric-vitamins - Barilife: 1 Just One Bariatric Multivitamin w/ iron (chewable or capsule) and 4794-5626 mg calcium citrate per day www.bariIntY.Partly - Barimelts: 2 Multivitamin w/ iron tablets and 1114-2094 mg calcium citrate per day www.barimelts.Partly Take multivitamin with iron 2 hours apart from calcium citrate, and take each dose of calcium 4 hours apart from each other Pre-op weight goal: 223 lbs Nutrition Monitoring & Evaluation: 1-2 lb weight loss per week prior to surgery Criteria: weight check and patient update Need for Follow up: 2 weeks pre op documented in this encounter[facility] History of Present illness Narrative* Giovana Deng RD - 01/26/2023 9:45 AM EDT AMBULATORY PATIENT EDUCATION NOTE- Shared Virtual Nutrition Group This group visit was performed virtually due to the COVID-19 epidemic as an effort to protect patients and minimize exposure. Consent from patient received to conduct a group visit virtually. This Team Access Model visit is a virtual group encounter. It required patient-provider interaction for themedical decision making as documented below. Patient reports weight (as measured by home scale) of 226.5 pounds ([facility]- [facility]. Lynch) PROGRESS: Nutrition Intervention (date of last encounter 12/27/22): Modify type and amount of foods consumed for meals and snacks 1. Read Nutritional Guidelines Section of Your Guide to Surgery by next session [email or web address]/-/[email or web address]?la=e n 2. Do not skip meals. 3. Use protein shake 1x per day to replace any skipped meals or for breakfast. Aim for shakes ~150-200 calories, ~15-20 grams of protein, <5 grams of total sugar. Here are a few examples of approved options for the 2 week pre-op liquid diet: Slim Fast Advanced Nutrition, [place] Breakfast Essentials Light Start mixed with fat free milk, Atkins (15 g protein), Boost Glucose Control, Owyn (20 g protein) 4. Use the Healthy Plate Method of portion control for lunch and dinner 4 oz lean meat (fish, chicken, pork tenderloin, turkey, seafood, eggs/cheese) 1/2 plate non starchy vegetables (salad, greens, cabbage, spinach, brussels sprouts, broccoli, carrots, celery, peppers, green beans, cauliflower) 1 cup starch/starchy vegetables (corn, peas, beans, winter squash, sweet potato, brown rice, whole grain pasta, whole grain bread products, quinoa) 5. Physical activity: Aim for 150 minutes of physical activity per week. Include 10-20 minutes of strength/resistance exercise 2-3x/week. Start to exercise from a sitting position: 20-25 minutes/session 3-4x per week: Try these seated exercises on YouTube: Mark Xoomsys; https://www.Wangsu Technology.com/playlist?list=DXFuZJgAqwthRpnm49pWcDyujhHH71GRqb HASFit Seated Exercises; https://www.FotoSwipeube.com/playlist?list=KTIWjg5zHm2THgzzn2KGNbdITcdUinwL8D Chair Cardio Workouts [address]; https://www.FotoSwipeube.com/playlist?acax=BHZv9QLnn5xGGLnfwUrXLNJjEnz824w-0c Chair exercise Sparkpeople https://www.Swapbox/resource/videos-detail.asp?video=38 Seated/standing 20 minute cardio workout direct link (Team Body Project) https://www.FotoSwipeube.com/watch?v=a2ctRL-UyXu&h=713q Various standing and seated workouts www.BDNA Various standing and seated exercise https://wwwPro-Swift Ventures/ Inga Toussainte Easy walk in place 15 min https://www.FotoSwipeube.com/watch?v=gddG59xpmOR Inga Dawna 30 minute indoor walking video https://www.FotoSwipeube.com/watch?v=enYITYwvPAQ Inga Dawna Higher intensity walk 30 min https://www.FotoSwipeube.com/watch?v=awGK4WPa2VS Standing 30 minute cardio workout (VBI Vaccines Body Project) https://www.FotoSwipeube.com/watch?v=OhDqKpWbP6w Exercise Database and Library (Resistance Training) https://www.Silent Circle.org/kbagfuuny-lcu-jzkjdhjkh/lifestyle/exercise-library/ Yachtico.com Yacht Charter & Boat RentalebLovelogica workout database: https://ScaleXtreme/ Beginner's Guide to Weight Training (article) https://www.[place] Green/health/dra-zx-etult-lifting-weights 5-20 minute toning videos https://www.Swapbox/resource/videos_new.asp 6. Drink 64 ounces per day water. Fluids should follow these guidelines: No carbonation, no caffeine, no calories, no alcohol. 7. Start to explore post surgery bariatric vitamins/minerals: Daily multivitamin, iron 45-60 mg, calcium citrate w/ Vit D 9975-8891 mg, Vit B12 500 mcg sublingual pill or liquid, Vit D3 3000 international unit(s), B complex with 75-100 mg thiamin *It is ok to take a combination bariatric vitamin to limit pill volume. Here are a few options to consider: - Bariatric Fusion: 4 Complete Multivitamin chewables per day OR 1 Multivitamin capsule and 3761-9666 mg calcium citrate per day OR 2 Multivitamin soft chews per day + 3 calcium citrate soft chews + 1 iron soft chew per day www.bariatricfusion.Partly - Procare Health: 1 Bariatric Multivitamin w/ iron (capsule or chewable) and 1571-8801 mg calcium citrate per day www.SonicsarePurpleBricks.Partly - Bariatric Choice: 1 Once Daily Bariatric Multivitamin capsule and 0544-8882 mg calcium citrate per day OR 4 All-in-One Bariatric Multivitamin chewables per day www.bariatricchoice.Partly - Bariatric Advantage: 1 Ultra Solo multivitamin w/ iron (chewable or capsule) OR 2 chewable Advanced Multi EA w/ iron and 8391-1278 mg calcium citrate per day OR 2 Multi Chewy Bites and 0748-4300 mgcalcium citrate and 45-60 mg iron per day www.bariatricadDecision Curveage.Partly - Celebrate: 2 Multi-Complete (chewable or capsule) OR 1 CelebrateOne Multivitamin capsule and 7184-9226 mg calcium citrate per day OR 2 Multivitamin soft chews + 3 calcium citrate soft chews + 1 iron soft chew per day https://CameramaebJootateEasy Food.Partly - Bariatric Pal: 1 Multivitamin One (chewable or capsule) and 0993-0160 mg calcium citrate per day OR 4 All-in-One Multivitamin chewables per day www.80 Degrees Westbariatricpal.Partly/collections/bariatric-vitamins - Barilife: 1 Just One Bariatric Multivitamin w/ iron (chewable or capsule) and 3254-9173 mg calcium citrate per day www.Hardaway Net-Works.Partly - Barimelts: 2 Multivitamin w/ iron tablets and 5509-8343 mg calcium citrate per day www.barimelts.Partly Take multivitamin with iron 2 hours apart from calcium citrate, and take each dose of calcium 4 hours apart from each other Pre-op goal weight: 223 pounds Protein needs: 74 gm per day CHANGES IN TREATMENT: Patient met goal(s): Yes Diagnosis: has not changed. Allergies: Lisinopril, Quydqxe-Kzz-Cdg Reductase Inhibitors, and Sulfa (Sulfonamide Antibiotics) Medications: Current Outpatient Medications Medication Sig Dispense Refill escitalopram oxalate (LEXAPRO) 10 mg tablet Take 5 mg by mouth once daily. levothyroxine (SYNTHROID) 125 mcg tablet Take 1 tablet by mouth once daily. 90 tablet 3 metoprolol tartrate, short acting, (LOPRESSOR) 25 mg tablet Take 25 mg by mouth twice daily. 1/2 tablet in the morning and 1/2 tablet in the evening. 11 aspirin, enteric coated (ASPIRIN, ENTERIC COATED) 81 mg EC tablet Take 81 mg by mouth once daily. Cholecalciferol, Vitamin D3, 50 mcg (2,000 unit) cap Take by mouth. ferrous sulfate 325 mg (65 mg iron) tablet Take 650 mg by mouth every 48 hours. No current facility-administered medications for this visit. (currently taking) ; Anthropometrics: Height: Last 1 Encounter Ht Readings: Date: Ht: 12/30/2022 157.5 cm (5' 2) Current weight: Last 1 Encounter Wt Readings: Date: Wt: 12/30/2022 105.7 kg (233 lb) Body mass index is 41.43 kg/m . Resting Metabolic Rate: 1603 Malnutrition Screening Significant unintentional weight loss? No Eating less than 75% of usual intake for more than 2 weeks? No Nutritional status: Educational materials provided: Nutritional Guidelines after Weight Loss Surgery READINESS TO LEARN Cognitive ability: Alert and oriented Motivation to learn: Interested Family support: Unable to assess - Family not present Instruction provided to: Patient Patient learns best by: Multiple Methods Factors affecting learning: None Physical limitations affecting learning: None Likelihood of Adherence: High Patient participated in preop bariatric surgery shared nutrition appointment. Patient participated actively in group. Since last visit patient -6.5 lbs (233 lbs). Diet recall reveals consistent meal pattern with no skipped meals. She is using Atkins 15 g alma delia latte shake as meal replacement - has caffeine so will switch to another flavor. Meals and snacks are sensible and include a variety of protein sources and follow healthy plate for portion control. Fluid intake is adequate in type and amount, including water and decaf coffee. Physical activity includes cardio 3x/week but still missing strength component. She is already taking bariatric MV w/ iron - made aware she will need calcium citrate also. Patient meets the National Institutes of Health guidelines for weight loss surgery and has [facility] Medicaid Insurance therefore is required to complete 0 months of Nutrition Intervention for clearance for surgery, however needs to demonstrate consistent effort in making dietary changes before being cleared for surgery. It is anticipated that the patient will need at least 1-2 nutritional follow-up visits prior to clearance for surgery. Today is visit #2. After session today, patient able to verbalize protein/fluid/exercise goals, recommendations for vitamin/minerals, use of protein shakes for meal replacement and for 2 week full liquid diet phase. Also able to demonstrate post op diet advancement/portion control using food models. Anticipate post op compliance. The patient meets NIH guidelines for weight loss surgery and has been thoroughly evaluated and educated on good dietary practices. Patient is capable of following these guidelines pre-and post-surgically. From nutrition standpoint, the patient is cleared for weight loss surgery. If the patient desires, may continue to follow-up with the dietitian on a monthly basis until all surgical requirementsare met. Nutrition Diagnosis: Overweight/obesity, related to, food/nutrition - related knowledge deficit, asevidenced by BMI above normative standard for age and gender. Nutrition Intervention: Modify type and amount of foods consumed for meals and snacks Please call [phone], option 5. Leave a message for the navigation team when you are finishedwith all clearances (nutrition, psychology, medical, surgeon) 1. Protein goal: 74 grams protein/day 2. Fluid goal: 64 oz per day water (no calories, no caffeine, no carbonation, no alcohol) 3. Exercise goal: 150-250 minutes per week, including 10-20 min of strength/resistance exercise 2-3x/week 4. Practice mindful eating habits- eat protein first, take small portions, eat slowly, chew thoroughly 20-30x before swallowing, practice eating and drinking by 30 min. 5. Start the full liquid diet (2) weeks prior to surgery using, 5 individual cartons of Atkins 15 gshakes per day, continue a minimum of 64 oz water per day during this time. No solid food. May havesugar free popsicle and sugar free jello. 6. During the 2 week liquid diet before surgery include a daily Super B-Complex vitamin with 75-100mg thiamin 7. Advance diet per guidebook post surgery (refer to page 49) 8. Begin taking vitamins/minerals after starting solid foods: Daily multivitamin, iron 45-60 mg (morning), calcium citrate w/ Vit D 600 mg at lunch and 600 mg at dinner, Vit B12 500 mcg sublingual pill or liquid, Vit D3 3000 IU, B complex with 75-100 mg thiamin *It is ok to take a combination bariatric vitamin to limit pill volume. Here are a few options to consider: - Bariatric Fusion: 4 Complete Multivitamin chewables per day OR 1 Multivitamin capsule and 4143-4724 mg calcium citrate per day OR 2 Multivitamin soft chews per day + 3 calcium citrate soft chews + 1 iron soft chew per day www.bariatricfusion.com - Procare Health: 1 Bariatric Multivitamin w/ iron (capsule or chewable) and 9313-6810 mg calcium citrate per day [email or web address].Partly - Bariatric Choice: 1 Once Daily Bariatric Multivitamin capsule and 6661-5605 mg calcium citrate per day OR 4 All-in-One Bariatric Multivitamin chewables per day [email or web address].com - Bariatric Advantage: 1 Ultra Solo multivitamin w/ iron (chewable or capsule) OR 2 chewable Advanced Multi EA w/ iron and 9854-5913 mg calcium citrate per day OR 2 Multi Chewy Bites and 0494-7505 mgcalcium citrate and 45-60 mg iron per day [email or web address].Partly - Celebrate: 2 Multi-Complete (chewable or capsule) OR 1 CelebrateOne Multivitamin capsule and 4324-0572 mg calcium citrate per day OR 2 Multivitamin soft chews + 3 calcium citrate soft chews + 1 iron soft chew per day [email or web address]://[email or web address].[email or web address] - Bariatric Pal: 1 Multivitamin One (chewable or capsule) and 0407-2822 mg calcium citrate per day OR 4 All-in-One Multivitamin chewables per day www.80 Degrees Westbariatricpal.Partly/collections/bariatric-vitamins - Barilife: 1 Just One Bariatric Multivitamin w/ iron (chewable or capsule) and 4958-0557 mg calcium citrate per day www.[employer].Partly - Barimelts: 2 Multivitamin w/ iron tablets and 6804-2549 mg calcium citrate per day www.b3 biomelts.Partly Take multivitamin with iron 2 hours apart from calcium citrate, and take each dose of calcium 4 hours apart from each other Pre-op weight goal: 223 lbs Nutrition Monitoring & Evaluation: 1-2 lb weight loss per week prior to surgery Criteria: weight check and patient update Need for Follow up: 2 weeks pre op Appointment Start Time: 9:45am Appointment End Time: 10:33am Time Spent on Consult: 47 minutes Signed by: Giovana Deng RD, LD documented in this [facility] History of Present illness Narrative* Tree Lynch MD - 01/17/2023 3:30 PM EDT BARIATRIC SURGERY NEW PATIENT CONSULTATION Date: January 17, 2023 Time: 10:35 AM Name: Shar Daniels CHIEF COMPLAINT: initial evaluation for metabolic and bariatric surgery This is a virtual visit using MobGoldt video visit. It required patient-provider interaction for themedical decision making as documented below. I have communicated my name and active licensure. The patient's identity and physical location wereverified at the time of this visit. Either the patient or their legal lifeline representatives has been informed of the risks and benefits of -- and alternatives to -- treatment through a remote evaluation andconsents to proceed with the evaluation remotely. SUBJECTIVE HPI:This is a 57 year old female with morbid obesity who presents for a virtual evaluation for surgical treatment of obesity. The patient's excess body weight interferes with activities of daily living and negatively impacts body of quality of life. Weight History: She reports a family history of obesity and adult onset weight gain. She states her weight gain is related to the following factors, including reduced physical activity and consumption of unhealthy foods. The most recent height and weight we have on file is 105.7 kg, 157.5 cm, which corresponds to a body mass index of 42.62 kg/m2. The patient affirms that these are roughly accurate. The patient's peakadult weight was 245 lbs. She is interested in surgery to improve her weight related comorbidities as well as her overall quality of life. GERD symptoms: no regular heartburn. No antisecretory medication NSAID use: rare use meloxicam 15 mg appears medication list (not taking), aspirin 81 mg p.o. on medication list. Uses extra strength On ASA 81 only, has been off Plavix for 2 to 3 years. Most recent A1c was 6.6 from 01/06/2023. Lipid panel demonstrates very mild elevation non-HDL cholesterol, borderline elevated triglycerides. Did have PCI for intermittent CP (? Unstable angina, 2018). She had a stent, now of DAPT. 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 Recently has started HCTZ. Hypertensive retinopathy Previous Obesity Treatments:. Self-directed exercise and dieting Weight watchers, Golo, other commercial diets, no prior antiobesity medications. 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 Iron deficiency Migraine headache Obesity Vitiligo PAST SURGICAL HISTORY: PAST SURGICAL HISTORY Procedure Laterality Date LAPAROSCOPIC CHOLECYSTECTOMY LAPAROSCOPY DIAGNOSTIC Laproscopy: for adhesions FAMILY HISTORY: FAMILY HISTORY Problem Relation Age of Onset Alcohol/Drug Father Diabetes Father Heart Father Heart Mother Thyroid Mother Hypothyroidism other (Vitiligo) Mother Thyroid Sister Hypothyroidism other (Vitiligo) Sister Thyroid Sister Hypothyroidism SOCIAL HISTORY: Social History Tobacco Use Smoking status: Never Smokeless tobacco: Never Vaping Use Vaping Use: Never used Substance Use Topics Alcohol use: No Drug use: No MEDICATIONS: Prior to Admission Medications: escitalopram oxalate (LEXAPRO) 10 mg tablet Take 5 mg by mouth once daily. levothyroxine (SYNTHROID) 125 mcg tablet Take 1 tablet by mouth once daily. metoprolol tartrate, short acting, (LOPRESSOR) 25 mg tablet Take 25 mg by mouth twice daily. 1/2 tablet in the morning and 1/2 tablet in the evening. aspirin, enteric coated (ASPIRIN, ENTERIC COATED) 81 mg EC tablet Take 81 mg by mouth once daily. lisinopril (ZESTRIL) 10 mg tablet Take 10 mg by mouth once daily. liothyronine (CYTOMEL) 5 mcg tablet Two pills (10 mcg) by mouth in AM, one pill (5 mcg) by mouth inPM Cholecalciferol, Vitamin D3, 50 mcg (2,000 unit) cap Take by mouth. ferrous sulfate 325 mg (65 mg iron) tablet Take 650 mg by mouth every 48 hours. No current facility-administered medications for this visit. ALLERGIES: ALLERGIES Allergen Reactions Grbczej-Nyx-Psc Red* Swelling Sulfa (Sulfonamide * Rash, Itching [employer] I have confirmed and edited as necessary, the PFSH and ROS obtained by others. REVIEW OF SYSTEMS: GENERAL: feeling well without fatigue, no recent change in weight HEENT: denies STAHL, change in hearing or vision, no other ENT complaints NECK: denies swelling or pain in neck RESPIRATORY: no cough, no wheezing or shortness of breath CARDIOVASCULAR: no chest pain, no palpitations MUSCULOSKELETAL: denies any painful or swollen joints, no muscle aches SKIN: no rash PSYCH: denies depressed or anxious mood, sleep is normal HEMATOLOGY/LYMPHOLOGY: negative for prolonged bleeding, no swollen lymph nodes ENDOCRINE: denies cold/heat intolerance, denies polyuria or polydipsia, no goiter NEURO: no numbness or paresthesias and no weakness of the extremities Objective PHYSICAL EXAM: VIDEO EXAM: (if completed, performed via video enabled technology) No exam performed ASSESSMENT: Shar Daniesl is a 57 year old female with the following diagnosis and co- morbidities: type II diabetes and hypertension BMI is 42.62 kg/m, based on reported weight and height This patient does meet the criteria for a surgical weight loss procedure according to NIH guidelines. Is this a Revisional Procedure:No Risks, benefits and alternatives discussed. PLAN: The plan of treatment for Shar Daniels is to continue with the consultations and tests ordered today in hopes of qualifying for pre-operative clearance for bariatric surgery. Patient is interested in: Sleeve gastrectomy - Patient has a 6 month insurance requirement for medically supervised weight loss/diet - We discussed post-operative requirements for optimal weight loss, healthy recovery, and weight loss maintenance in detail, including protein and fluid intake, vitamins, and minerals, labs, and follow-up appointments. Patient expressed understanding and agrees to comply with these requirements. - Will need cardiac risk stratification, given history of PCI - EGD to rule out hiatal hernia, esophagitis, H pylori - April or after is preferred surgery timeframe, which is a doable - I spent a total of 45 minutes on the date of the service which included preparing to see the patient, [id number] patient care, completing clinical documentation, counseling and educating the patient/family/caregiver, and ordering medications, tests, or procedures Bariatric and Advanced Laparoscopic Surgery SIGNATURE: Tree Lynch MD PATIENT NAME: Shar Daniels DATE: January 17, 2023 TIME: 10:35 AM documented in this encounterSelect [facility] [place] History of Present illness Narrative* Jennifer Olguin, PhD - 01/17/2023 10:05 AM EDT [facility] Bariatric Behavioral Services Progress Note January 18, 2023 Patient was a no-show. Jennifer Olguin, Ph.D. Psychologist documented in this encounterSelect [facility] [place] History of Present illness Narrative* Kristy Downing RT(R) - 01/06/2023 11:20 AM EDT Radiology Service Progress Note PATIENT NAME: Shar Daniels DATE OF SERVICE: January 06, 2023 TIME: 11:19 AM PATIENT IDENTITY VERIFICATION COMPLETED USING TWO (2) IDENTIFIERS: Name and Date of confirmedby patient verbally. FALL SCREENING: Has the patient had 2 falls in the last year or 1 fall with injury or currently using an Ambulatory Assistive Device (Walker, Cane, Wheelchair, Crutches, etc.)? No PATIENT GENDER DATA: Female. status: : No status: NO. PATIENT RELEVANT IMPLANT DATA REVIEWED: Not Applicable RADIOLOGY DEPARTMENT: General X-ray: Exam(s) Completed: Chest X-Ray PERIPHERAL IV DATA: Not applicable SIGNED BY: RT Josephine(R) January 06, 2023 11:19 AM documented in this encounterSelect [facility] [place]04-27-[address] Springer [facility] December 01, 2022 8:53am Note Date/Time December 01, 2022 8:5 0am [facility] Medical Records Department [address] [place] [address] Instructions for Home/Discharge Instructions 12/01/22 0849 MR#: [id number] Acct: [id number] Name: SHAR DANIELS Rep #:[id number] : 1965 57 From: Odin matos MD PCP: Dr. Camilla Castaneda MD Status:A DM IN Discharge Instructions Diet Discharge Diet: Low fat / Low cholesterol Activity Discharge Activity: Return to Normal Activity Dressing / Incision Call your doctor if you observe: Fever of 101 or Higher, Shortness of breath, Dizziness, Fainting spells, Swelling in the ankles, Chest pain and Increased palpitations (irregular heartbeat) Follow Up Care Test Results: Test results from this visit will be discussed in further detail at your follow- up appointment, if applicable. Discharge Plan Admission Admit Date/Time: 11/29/22 14:24 Attending Provider: Odin Springer Primary Care Provider: Camilla Castaneda Consulting Providers: Krishna Hoffmann ; Khanh Allen ; Sung Lozano ; Rafy Can ; Magda Mendenhall HOT PLATE PLYWOOD PRESS OPERATOR ; Vee Almaraz Instructions Additional Instructions / Restrictions: Follow-up with ophthalmology tomorrow to evaluate the blurry vision changes in your left eye. MRI of your brain was negative. I decreased her Synthroid from 150 mcg to 112 mcg because her TSH was low and your free T4 was elevated. Discharge Orders/Prescriptions Prescriptions: New levothyroxine 112 mcg capsule 112 mcg PO DAILY Qty: 30 0RF Continued ferrous sulfate 325 mg (65 mg iron) tablet 650 mg PO QODAY aspirin [Adult Aspirin Regimen] 81 mg tablet,delayed release (DR/EC) 81 mg PO DAILY albuterol sulfate 90 mcg/actuation HFA aerosol inhaler 1 - 2 puff inhalation Q6H PRN (Reason: SHORTNESS OF BREATH ) escitalopram oxalate 10 mg tablet 10 mg PO Q3D metoprolol tartrate 25 mg tablet 25 mg PO DAILY Discontinued levothyroxine 150 mcg tablet 150 mcg PO DAILY Referrals / Follow Up: Camilla Castaneda MD [Primary Care Provider] - Within 1 Week Disposition Disposition (needs filled in before D/C Order can be placed): Home, Self Care 12/01/22 0853<Electronically signed by Odin Springer MD>Odin Springer MD CC: HOT PLATE [employer]WO[employer] PRESS OPERATOR-C Magda Mendenhall; Dr. Krishna Hoffmann MD; Dr. Khanh Allen DO; Dr. Camilla Castaneda MD; Dr. Vee Almaraz DO; Dr. Sung Lozano MD; Dr. Rafy Can MD ~ Signed [facility] Work Phone: 1(804) 342-169304-26-[address] Springer [facility] November 30, 2022 3:56pm Note Date/Time November 30, 2022 3:3 6pm [facility] Medical Records Department [address] [place] [address] Progress Note - Hospitalist 11/30/22 1531 MR#: [id number] Acct: [id number] Name: SHAR DANIELS Rep #:[id number] : 1965 57 From: Odin matos MD PCP: Dr. Camilla Castaneda MD Status:A DM IN Location: ICU CVICU20 2-1 Subjective Subjective Doing well, no issues overnight. Still states that she has some vision issues in her left eye. Objective Data Objective Data Vital Signs: Vital Signs Temp Pulse Resp BP Pulse Ox O2 Del Method 98.3 F 63 14 127/75 H 93 Room Air 11/30/22 12:00 11/30/22 15:10 11/30/22 14:00 11/30/22 15:10 11/30/22 15:10 11/30/22 15:10 Oxygen Delivery Method Room Air Weight: 234 lb 2.095 oz Body Mass Index (BMI) 43.0 Intake & Output: Intake and Output for Last 24 Hours 11/29/22 11/30/22 12/01/22 03:59 03:59 03:59 Intake Total 1000 / 1000 220 / 220 Output Total 1550 / 1700 975 / 975 Balance -550 / -700 -755 / -755 Lab / Micro Data Result Diagrams: 11/30/22 04:05 11/30/22 04:05 Labs: Laboratory Results - last 24 hr 11/30/22 04:05: Hemoglobin A1c 6.3 H 11/30/22 04:05: WBC 7.5, RBC 4.06 L, Hgb 12.3, Hct 37.6, MCV 92.6, MCH 30.3, MCHC 32.7, RDW Std Deviation 43.2, RDW Coeff of Evan 12.7, Plt Count 277, MPV 10.5, Immature Gran % (Auto) 0.500, Neut % (Auto) 54.2, Lymph % (Auto) 31.8, [place] % (Auto) 9.1, Eos % (Auto) 3.9, Baso % (Auto) 0.5, Absolute Neuts (auto) 4.1, Absolute Lymphs (auto) 2.38, Nucleated RBC % 0 11/30/22 04:05: Sodium 138, Potassium 3.7, Chloride 106, Carbon Dioxide 29.0, Anion Gap 3 L, BUN 13, Creatinine 0.70, Estim Creat Clear Calc 70.98, Est GFR (MDRD) Af Amer 111, Est GFR (MDRD) Non-Af 91, BUN/Creatinine Ratio 18.5, [id number] H, Calcium 8.6, Magnesium 2.3, Total Bilirubin 0.80, AST 11 L, ALT 19, Alkaline Phosphatase 75, Total Protein 6.1 L, Albumin 3.2, Globulin 2.9, Albumin/Globulin Ratio 1.1, Triglycerides 148, Cholesterol 146, LDL Cholesterol 77, VLDL Cholesterol 30, HDL Cholesterol 39 L, TSH 0.11 L 11/30/22 04:05: Phosphorus 4.4 Radiography Diagnostic Testing: Radiology Impression Chest X-Ray 11/29/22 15:17 IMPRESSION: The lungs are clear. No acute abnormality is present. Electronically Signed: Lon Eric MD at 15:37 EDT Reading Location ID and State: [facility] / [place] , Service support , Physical Exam Narrative General: Alert, Oriented x3, Cooperative, No apparent distress HEENT: Atraumatic, PERRLA, EOMI, Normocephalic Oral: Moist Mucosa Neck: Supple, No JVD Lungs: Clear to auscultation, Normal air movement, No rhonchi, No wheeze, No rales Cardiovascular: Regular rate, Regular Rhythm, Normal S1, Normal S2, No murmurs Abdomen: Soft, Non Tender, Non-Distended, No Hepato-splenomegaly Extremities: No edema, Capillary Refill Less than 3 Seconds Skin: No rashes, No breakdown Musculoskeletal: No Tenderness to Palpation of Joints or Extremities Neurological: Cranial nerves II-XII grossly intact, Motor Exam 5/5 strength throughout, Sensory exam intact to light touch and pain Psych/Mental Status: Normal Affect, Appropriate Assessment & Plan Assessment/Plan (1) Facial droop: (2) Vision changes: (3) Paresthesias: (4) Hyperglycemia: PLAN: Plan 1. Left-sided droop with visual changes out of her left eye and left-sided paresthesias/bitemporal hemianopsia/morbid obesity ?She did receive thrombolytics ? Continue with stroke protocol ? Echo is pending ? MRI at the 24-hour susanna after thrombolytics is obtained and pending read ? PT/OT ? Depending on MRI results would likely benefit from an ophthalmology evaluationas an ? BMI is 42.8, lifestyle modifications were discussed 2. CAD status post stent/HTN/HLD/history of cardiomyopathy ? Blood pressures are stable ? She is intolerant of statins ? We will hold aspirin secondary to thrombolytics 3. Hypothyroidism ? We will continue with her home Synthroid ? Her TSH is low we will obtain a T4 4. Depression ? Stable ? Continue with medications 5. Asthma ? Stable ? Continue with inhalers DVT: SCDs Charges/Coding Visit Charges Inpatient E&M: 81300 Subs Hosp L2 11/30/22 1556 <Electronically signed by Odin Springer MD> Cosigner Signature (if applicable): CC: ~ Signed [facility] Work Phone: 1(741) 360-205404-26-[address] Hoffmann [facility] November 30, 2022 2:58pm Note Date/Time November 30, 2022 7:3 2am [facility] Medical Records Department [address] [place] [address] Consultation - Cambering Machine Operator 11/30/22 0729 MR#: [id number] Acct: [id number] Name: SHAR DANIELS Rep #:[id number] : 1965 57 From: Krishna Hoffmann MD PCP: Dr. Camilla Castaneda MD Status:A DM IN Location: ICU CVICU20 2-1 Assessment & Plan Assessment/Plan (1) Vision changes: (2) Stroke: PLAN: Plan RECOMMENDATIONS: 1. Continue with post thrombolytic protocol 2. Attempt to schedule MRI for [address] PM [address] Pot[address] DC CT order 3. Outpatient follow-up with ophthalmology 4. Blood pressure optimization 5. Okay to leave the intensive care unit following MRI if no complications 6. Will sign off from a critical care perspective unless complications of therapy IMPRESSIONS: 1. Acute CVA status post thrombolytic therapy Patient with known left-sided facial droop, visual changes and left-sided paresthesia on presentation. Patient has had a great response to tenecteplase with a current NIH of 0. Patient is still reporting some serpentine visual disturbance. Patient likely needs to have a follow-up with ophthalmology with pupillary dilation as an outpatient after discharge. Continue with postthrombolytic protocol. Potentially schedule patient for MRI at 2 PM so thatCT can be discontinued. Likely okay to leave the intensive care unit following imaging if no complications. 2. Hyperglycemia/hypothyroidism/CAD/hyperlipidemia/depression/morbid obesity Complicates care, management, recovery and prognosis. Okay to continue with baseline medications from my perspective. Patient would likely benefit from an outpatient sleep apnea work-up, but defer to patient. Hemoglobin A1c iscurrently pending, but patient does have some findings suggestive of at least insulin resistance. HPI Consult Data Date of Consult: 11/30/22 HPI Narrative Reason for Consultation: Status postthrombolytic therapy HPI Narrative: SHAR DANIELS is a 57 F, with past medical history listed below, who presents to [facility] on 11/29/2022 secondary to headache and peripheral vision loss. Patient reported that approximate 45 minutes prior to arrival she started to have a loss of peripheral vision and sees blood. Patient did have a mild headache, but has a history of headaches. Patient states this headache was slightly different. Patient's typical headaches are in the occipital regionand her new headache was in the frontal/cephalic region. In the ER, patient was hypertensive at 199/106, but saturating well on room air and afebrile. Laboratory data showed a white blood cell count of 8.2, hemoglobin of 13.7 and normal coagulation and chemistry studies. Patient's glucose was slightly elevated at 203. Stroke alert was called and after conference with a stroke neurologist, patient was given tPA when his CTA showed no large vessel occlusion. Patient admitted to the intensive care unit for monitoring. Since being in the intensive care unit, patient's NIH has gone from a 2 to a 0. Patient states she continues to have a serpentine area of vision loss. Patient states her headache has improved somewhat. Patient is not reporting any nausea or vomiting associated with the headache. Patient has not had any double vision. Patient does not report a similar type of event. Patient does state that she sees an ladle builder on a yearly basis, but has never seen an quarry boss. Patient is not aware of ever having her eyes dilated. Patient is not reporting any sensory or motor deficits. Patient has not had any problems with dysphagia or dysarthria. Review of systems otherwise negative from a constitutional, HEENT, respiratory, cardiovascular, GI, genitourinary, musculoskeletal, skin, neurologic, psychiatric and hematologic system unless stated above. [facility] Medical History Abnormal echocardiogram (03/23/18) Anemia Anxiety Anxiety and depression Arthritis Arthritis of left temporomandibular joint Asthma Atherosclerosis of [place] coronary artery of [place] heart without angina pectoris Cardiology follow-up encounter Colon cancer screening Essential hypertension H/O bronchitis History of echocardiogram History of edema History of irregular heartbeat History of steroid therapy Hyperglycemia Hypertension Hypertension Hypothyroidism Left ventricular dysfunction Migraine headache Morbid obesity Nonischemic cardiomyopathy Nonrheumatic mitral (valve) insufficiency Nonrheumatic tricuspid (valve) insufficiency Normal stress echocardiogram Obesity Otitis media Post-menopausal Preventative health care Pure hypercholesterolemia Shortness of breath Shortness of breath on exertion Sinusitis Syncope Thyroid disease Thyroid disorder Vitiligo Wears glasses Home Medications ferrous sulfate 325 mg (65 mg iron) tablet 650 mg PO QODAY SUPPLEMENT 03/11/21 [History Last Taken 11/28/22] albuterol sulfate 90 mcg/actuation aerosol inhaler 1 - 2 puff inhalation Q6H PRNSHORTNESS OF BREATH 11/29/22 [History Last Taken Unknown] aspirin 81 mg tablet,delayed release (Adult Aspirin Regimen) 81 mg PO DAILY HEART HEALTH 11/29/22 [History Last Taken 11/28/22] escitalopram oxalate 10 mg tablet 10 mg PO Q3D DEPRESSION 11/29/22 [History Last Taken 11/27/22] levothyroxine 150 mcg tablet 150 mcg PO DAILY THYROID 11/29/22 [History Last Taken 11/28/22] metoprolol tartrate 25 mg tablet 25 mg PO DAILY BLOOD PRESSURE 11/29/22 [History Last Taken 11/28/22] Allergy/AdvReac Type Severity Reaction Status Date / Time losartan Allergy Intermediate muscles Verified 11/29/22 13:01 locked up Sulfa (Sulfonamide Allergy Hives Verified 11/29/22 13:01 Antibiotics) rosuvastatin [From Crestor] AdvReac Severe Lymphadenopathy, Verified 11/29/22 13:01 edema, hyperthyroid atorvastatin [From Lipitor] AdvReac Intermediate Muscle Verified 11/29/22 13:01 aches/myalgias Family History Father CAD (coronary artery disease) Diabetes Dementia Heart disease Mother CAD (coronary artery disease) Hypertension Thyroid disorder Heart disease Sister Diabetes Type II Thyroid disorder Colon polyps Crohn's disease Sister Diabetes Type II Thyroid disorder Surgical History History of cardiac catheterization History of cholecystectomy History of colonoscopy History of laparoscopy History of left heart catheterization Hx of laparoscopy Stented coronary artery (04/19/18) Social History Smoking Status: Never smoker alcohol intake: current alcohol intake frequency: holidays/special occasions only substance use type: does not use caffeine: Yes Type: coffee Number of servings: 2 what type of physical activity do you participate in: none seatbelt use: always do you feel safe at home: Yes additional social history: - Sonny Physical Exam Const alert, oriented x3, no apparent distress, healthy appearing and well nourished General Appearance: cooperative HEENT normocephalic, head/scalp atraumatic, hearing grossly normal bilaterally and moist oral mucous membranes HEENT Narrative: Mallampati 3, no thrush, dentition is good Eyes PERRL, EOMs intact bilaterally, conjunctivae normal and no scleral icterus Eyes Narrative: Visual acuity appears to be normal. Neck no lymphadenopathy, supple, no JVD and no carotid bruits Neck Narrative: Trachea midline Resp normal respiratory effort, no retractions, no use of accessory muscles and clearto auscultation bilaterally Auscultation: Negative for rales, rhonchi or wheezes Cardio regular rate, regular rhythm, S1 normal heart sound, S2 normal heart sound, no murmurs, no rub, no gallops and no clicks GI normal to inspection, nondistended, normoactive bowel sounds, soft to palpation and non-tender Extremity no clubbing, cyanosis or edema Extremity Narrative: 2+ pedal pulses Skin no rashes or lesions noted, no wounds, skin turgor normal, no jaundice, no petechiae and no mottling Neuro oriented x3, CN's II-XII intact bilaterally, moves all extremities and no focal motor deficits Coordination / Balance: [id number] test normal and [id number] test normal Speech: speech normal Psych cooperative and affect normal Medical Records Data Attestation: I reviewed the patient's medical records Lab / Micro Data Attestation: I reviewed the patient's lab results. Result Diagrams: 11/30/22 04:05 11/30/22 04:05 Labs: Laboratory Results - last 24 hr 11/29/22 13:05: WBC 8.2, RBC 4.60, Hgb 13.7, Hct 42.7, MCV 92.8, MCH 29.8, MCHC 32.1, RDW Std Deviation 42.5, RDW Coeff of Evan 12.5, Plt Count 304, MPV 10.5, Immature Gran % (Auto) 1.100 H, Neut % (Auto) 53.9, Lymph % (Auto) 31.4, [place] % (Auto) 9.0, Eos % (Auto) 4.0, Baso % (Auto) 0.6, Absolute Neuts (auto) 4.4, Absolute Lymphs (auto) 2.58, Nucleated RBC % 0 11/29/22 13:05: PT 12.9, INR 1.0, APTT 27.0 11/29/22 13:05: Sodium 137, Potassium 3.6, Chloride 105, Carbon Dioxide 27.0, Anion Gap 5, BUN 14, Creatinine 0.81, Estim Creat Clear Calc 61.34, Est GFR (MDRD) Af Amer 94, Est GFR (MDRD) Non-Af 78, BUN/Creatinine Ratio 17.3, Glucose 203 H, Calcium 9.5, Troponin I High Sens 4 11/29/22 13:17: POC Glucose 239 H 11/30/22 04:05: WBC 7.5, RBC 4.06 L, Hgb 12.3, Hct 37.6, MCV 92.6, MCH 30.3, MCHC 32.7, RDW Std Deviation 43.2, RDW Coeff of Evan 12.7, Plt Count 277, MPV 10.5, Immature Gran % (Auto) 0.500, Neut % (Auto) 54.2, Lymph % (Auto) 31.8, [place] % (Auto) 9.1, Eos % (Auto) 3.9, Baso % (Auto) 0.5, Absolute Neuts (auto) 4.1, Absolute Lymphs (auto) 2.38, Nucleated RBC % 0 11/30/22 04:05: Sodium 138, Potassium 3.7, Chloride 106, Carbon Dioxide 29.0, Anion Gap 3 L, BUN 13, Creatinine 0.70, Estim Creat Clear Calc 70.98, Est GFR (MDRD) Af Amer 111, Est GFR (MDRD) Non-Af 91, BUN/Creatinine Ratio 18.5, [id number] H, Calcium 8.6, Magnesium 2.3, Total Bilirubin 0.80, AST 11 L, ALT 19, Alkaline Phosphatase 75, Total Protein 6.1 L, Albumin 3.2, Globulin 2.9, Albumin/Globulin Ratio 1.1, Triglycerides 148, Cholesterol 146, LDL Cholesterol 77, VLDL Cholesterol 30, HDL Cholesterol 39 L, TSH 0.11 L 11/30/22 04:05: Phosphorus 4.[address] 11/29/22 13:03 IMPRESSION: Normal unenhanced CT scan of the brain. N.B. : The above Results were Read Back by Lon Eric MD to Dr Betzy DO, and understanding confirmed on 11/29/2022 13:35:18 (ET). Electronically Signed: Lon Eric MD at 13:36 EDT , ADDENDUM: 11/29/22 1343 IMPRESSION: Normal unenhanced CT scan of the brain. N.B. : The above Results were Read Back by Lon Eric MD to Dr Betzy DO, and understanding confirmed on 11/29/2022 13:35:18 (ET). Electronically Signed: Lon Eric MD at 13:36 EDT , Head/Neck CTA 11/29/22 13:15 IMPRESSION: Normal CTA Head and neck with contrast. N.B. : The above Results were Read Back by Lon Eric MD to Brendan Bo and understanding confirmed on 11/29/2022 13:37:10 (ET). Electronically Signed: Lon Eric MD at 13:38 EDT , ADDENDUM: 11/29/22 1345 IMPRESSION: Normal CTA Head and neck with contrast. N.B. : The above Results were Read Back by Lon Eric MD to Brendan Bo and understanding confirmed on 11/29/2022 13:37:10 (ET). Electronically Signed: Lon Eric MD at 13:38 EDT , Chest X-Ray 11/29/22 15:17 IMPRESSION: The lungs are clear. No acute abnormality is present. Electronically Signed: Lon Eric MD at 15:37 EDT , Charges/Coding Visit Charges Inpatient E&M: 95428 Init Hosp L2 11/30/22 1458 <Electronically signed by Krishna Hoffmann MD> Cosigner Signature (if applicable): CC: HOT PLATE PLY[employer]OD PRESS OPERATORGreg Mendenhall; Dr. Krishna Hoffmann MD; Dr. Khanh Allen DO; Dr. Camilla Castaneda MD; Dr. Vee Almaraz DO; Dr. Sung Lozano MD; Dr. Rafy Can MD~ Signed [facility] Work Phone: [phone]) 289-190404-25-[address] Bo [facility] November 29, 2022 5:21pm Note Date/Time November 29, 2022 2:1 7pm [facility] Medical Records Department [address] [place] [address] Emergency Department Summary 11/29/22 MR#: [id number] Acct: [id number] Name: SHAR DANIELS Rep #:[id number] : 1965 57 From: Brendan Arteaga PCP: Dr. Camilla Castaneda MD Status:A DM IN Location: ICU CVICU20 2-1 HPI History of Present Illness Chief Complaint: Stroke Alert Informant: patient Onset/Context/Timing Onset: Today Context: Sudden Onset Timing: Continuous Onset: Approximately 45 minutes prior to arrival Worsened by: Nothing Relieved by: Nothing Associated Symptoms Associated Symptoms: Positive for Headache Narrative Narrative: Patient presents with peripheral vision loss and floaters in both eyes. Patientstates the peripheral part of her vision is black. Patient states that she sees blood in the rest of her vision. Patient states this began [id number] minutes prior to arrival. Patient does admit to a mild headache. Patient denies any difficulty speaking or difficulty swallowing. Patient denies any paresthesias or weakness. Patient denies any chest pain or shortness of breath. Patient denies any nausea or vomiting. [facility] Medical History Abnormal echocardiogram (03/23/18) Anemia Anxiety Anxiety and depression Arthritis Arthritis of left temporomandibular joint Asthma Atherosclerosis of [place] coronary artery of [place] heart without angina pectoris Cardiology follow-up encounter Colon cancer screening Essential hypertension H/O bronchitis History of echocardiogram History of edema History of irregular heartbeat History of steroid therapy Hyperglycemia Hypertension Hypertension Hypothyroidism Left ventricular dysfunction Migraine headache Morbid obesity Nonischemic cardiomyopathy Nonrheumatic mitral (valve) insufficiency Nonrheumatic tricuspid (valve) insufficiency Normal stress echocardiogram Obesity Otitis media Post-menopausal Preventative health care Pure hypercholesterolemia Shortness of breath Shortness of breath on exertion Sinusitis Syncope Thyroid disease Thyroid disorder Vitiligo Wears glasses Home Medications ferrous sulfate 325 mg (65 mg iron) tablet 650 mg PO QODAY SUPPLEMENT 03/11/21 [History Last Taken 11/28/22] albuterol sulfate 90 mcg/actuation aerosol inhaler 1 - 2 puff inhalation Q6H PRNSHORTNESS OF BREATH 11/29/22 [History Last Taken Unknown] aspirin 81 mg tablet,delayed release (Adult Aspirin Regimen) 81 mg PO DAILY HEART HEALTH 11/29/22 [History Last Taken 11/28/22] escitalopram oxalate 10 mg tablet 10 mg PO Q3D DEPRESSION 11/29/22 [History Last Taken 11/27/22] levothyroxine 150 mcg tablet 150 mcg PO DAILY THYROID 11/29/22 [History Last Taken 11/28/22] metoprolol tartrate 25 mg tablet 25 mg PO DAILY BLOOD PRESSURE 11/29/22 [History Last Taken 11/28/22] Allergy/AdvReac Type Severity Reaction Status Date / Time losartan Allergy Intermediate muscles Verified 11/29/22 13:01 locked up Sulfa (Sulfonamide Allergy Hives Verified 11/29/22 13:01 Antibiotics) rosuvastatin [From Crestor] AdvReac Severe Lymphadenopathy, Verified 11/29/22 13:01 edema, hyperthyroid atorvastatin [From Lipitor] AdvReac Intermediate Muscle Verified 11/29/22 13:01 aches/myalgias Family History Father CAD (coronary artery disease) Diabetes Dementia Heart disease Mother CAD (coronary artery disease) Hypertension Thyroid disorder Heart disease Sister Diabetes Type II Thyroid disorder Colon polyps Crohn's disease Sister Diabetes Type II Thyroid disorder Surgical History History of cardiac catheterization History of cholecystectomy History of colonoscopy History of laparoscopy History of left heart catheterization Hx of laparoscopy Stented coronary artery (04/19/18) Social History Smoking Status: Never smoker alcohol intake: current alcohol intake frequency: holidays/special occasions only substance use type: does not use caffeine: Yes Type: coffee Number of servings: 2 what type of physical activity do you participate in: none seatbelt use: always do you feel safe at home: Yes additional social history: - Sonny LETI LANDEROS ED Constitutional Constitutional ED: Denies chills or fever(s) Eyes Eyes: Reports blurry vision and change in vision; Denies diplopia ENT ENT ED: Denies rhinorrhea or sore throat Cardiovascular Cardiovascular: Denies chest pain or palpitations Respiratory/Chest Respiratory/Chest: Denies cough or dyspnea Gastrointestinal Gastrointestinal: Denies nausea or vomiting Genitourinary Genitourinary ED: Denies dysuria or hematuria Musculoskeletal Musculoskeletal: Denies back pain or neck pain Integumentary Denies abscess or rash Neurologic Neurologic: Reports headache(s); Denies weakness Allergic/Immunologic Allergic/Immunologic ED: Denies mouth swelling or urticaria EXAM Physical Exam Const Vital Signs: 11/29/22 13:00 11/29/22 13:27 11/29/22 14:07 Temperature 97.0 F L Temperature Source Temporal Pulse Rate 78 Respiratory Rate 15 Blood Pressure 199/106 H 146/106 H Blood Pressure Mean 137 Blood Pressure Source Blood Pressure Position Blood Pressure Location Pulse Ox 97 Oxygen Delivery Method Room Air Room Air 11/29/22 14:07 11/29/22 14:22 11/29/22 14:05 Temperature 97.7 F L 97.8 F Temperature Source Core Core Pulse Rate 87 79 80 Respiratory Rate 22 H 12 13 Blood Pressure 167/86 H 167/84 H 146/106 H Blood Pressure Mean 113 111 119 Blood Pressure Source Monitor Monitor Blood Pressure Position Semi-Fowlers Semi-Fowlers Blood Pressure Location Left Arm Left Arm Pulse Ox 97 96 97 Oxygen Delivery Method Room Air Room Air Room Air Positive well nourished, well developed and obese General Appearance ED: well developed and NAD Nutritional Appearance: obese HEENT Reports moist mucous membranes Eyes PERRL and EOMs intact bilaterally Eyes Narrative: Funduscopic examination is benign. There is no papilledema. There is no retinal hemorrhage or vitreal hemorrhage noted. Neck supple and no JVD Resp normal respiratory effort and clear to auscultation bilaterally Cardio Rate: regular rate Rhythm: regular rhythm GI normal to inspection, nondistended, normoactive bowel sounds, soft to palpation and non-tender Back/Spine no CVA tenderness Neuro oriented x3 and CN's II-XII intact bilaterally Neuro Narrative: There is mild decrease sensation to light touch in the left upper extremity. Wilder Coma Scale: document GCS findings Spontaneous Obeys Commands Oriented 15 Sensorium / Orientation: alert Speech: speech normal Motor Exam: strength 5/5 throughout Psych mental status grossly normal Skin no wounds NIHSS NIHSS Initial: 1a Level of Consciousness: 0 1b LOC Questions (Score 2 if aphasic/stupor): 0 1c LOC Commands (Only score 1st attempt): 0 2 Best Gaze (If aphasic, use reflexive mvmts.): 0 3 Visual: 0 4 Facial Palsy: 1 5 Motor Arm Right (UN = amputation/fusion): 0 5 Motor Arm Left: 0 6 Motor Leg Right: 0 6 Motor Leg Left: 0 7 Limb ataxia (Only + if out of proportion): 0 8 Sensory (Aphasia/stupor=0 or 1, coma=2): 1 9 Best Language: 0 10 Dysarthria (mute, coma=2, intubated=UN): 0 11 Extinction and Inattention (only scored if +): 0 Total Score: 2 MDM MDM MDM Narrative Medical decision making narrative: Differential diagnosis includes acute stroke, migraine headache, TIA, retinal detachment, and electrolyte abnormality. Stroke alert was called prehospital. CT scan of the brain and CTA of the head and neck will be obtained to assess forstroke and large vessel occlusion. EKG will be obtained to assess for cardiac dysrhythmia and cardiac ischemia. CBC will be obtained to assess for leukocytosis and anemia. Basic metabolic profile will be obtained to assess forelectrolyte abnormality, renal function, and hyper and hypoglycemia. High-sensitivity troponin will be obtained to assess for cardiac ischemia. PT with INR and PTT will be obtained to assess for coagulopathy. Chest x-ray will be obtained to assess for pneumonia, pneumothorax, and widened mediastinum. Lab Data Attestation: I reviewed the patient's lab results. Lab results narrative: CBC was reviewed and was within normal limits. Basic metabolic profile was reviewed and was within normal limits. High-sensitivity troponin was reviewed and was normal. PT was INR and PTT were reviewed and were within normal limits. Labs: Laboratory Results - last 24 hr 11/29/22 11/29/22 11/29/22 13:05 13:05 13:05 WBC 8.2 RBC 4.60 Hgb 13.7 Hct 42.7 MCV 92.8 MCH 29.8 MCHC 32.1 RDW Std Deviation 42.5 RDW Coeff of Evan 12.5 Plt Count 304 MPV 10.5 Immature Gran % (Auto) 1.100 H Neut % (Auto) 53.9 Lymph % (Auto) 31.4 [place] % (Auto) 9.0 Eos % (Auto) 4.0 Baso % (Auto) 0.6 Absolute Neuts (auto) 4.4 Absolute Lymphs (auto) 2.58 Nucleated RBC % 0 PT 12.9 INR 1.0 APTT 27.0 Sodium 137 Potassium 3.6 Chloride 105 Carbon Dioxide 27.0 Anion Gap 5 BUN 14 Creatinine 0.81 Estim Creat Clear Calc 61.34 Est GFR (MDRD) Af Amer 94 Est GFR (MDRD) Non-Af 78 BUN/Creatinine Ratio 17.3 Glucose 203 H Calcium 9.5 Troponin I High Sens 4 POC Glucose 11/29/22 13:17 WBC RBC Hgb Hct MCV MCH MCHC RDW Std Deviation RDW Coeff of Evan Plt Count MPV Immature Gran % (Auto) Neut % (Auto) Lymph % (Auto) [place] % (Auto) Eos % (Auto) Baso % (Auto) Absolute Neuts (auto) Absolute Lymphs (auto) Nucleated RBC % PT INR APTT Sodium Potassium Chloride Carbon Dioxide Anion Gap BUN Creatinine Estim Creat Clear Calc Est GFR (MDRD) Af Amer Est GFR (MDRD) Non-Af BUN/Creatinine Ratio Glucose Calcium Troponin I High Sens POC Glucose 239 H Radiography Chest X-Ray - ED: 1 View, Read by ED Physician, Read by Radiologist and No AcuteDisease Diagnostic Testing: Clinical Impression(s) from Imaging Studies Brain CT 11/29/22 13:03 IMPRESSION: Normal unenhanced CT scan of the brain. N.B. : The above Results were Read Back by Lon Eric MD to Dr Betzy DO, and understanding confirmed on 11/29/2022 13:35:18 (ET). Electronically Signed: Lon Eric MD at 13:36 EDT , ADDENDUM: 11/29/22 1343 IMPRESSION: Normal unenhanced CT scan of the brain. N.B. : The above Results were Read Back by Lon Eric MD to Dr Betzy DO, and understanding confirmed on 11/29/2022 13:35:18 (ET). Electronically Signed: Lon Eric MD at 13:36 EDT , Head/Neck CTA 11/29/22 13:15 IMPRESSION: Normal CTA Head and neck with contrast. N.B. : The above Results were Read Back by Lon Eric MD to Brendan Bo and understanding confirmed on 11/29/2022 13:37:10 (ET). Electronically Signed: Lon Eric MD at 13:38 EDT , ADDENDUM: 11/29/22 1345 IMPRESSION: Normal CTA Head and neck with contrast. N.B. : The above Results were Read Back by oLn Eric MD to Brendan Bo and understanding confirmed on 11/29/2022 13:37:10 (ET). Electronically Signed: Lon Eric MD at 13:38 EDT , CT scan of the brain was obtained. There is no acute intracranial abnormality. This was interpreted by the radiologist and was also independently reviewed by myself. CTA of the head and neck was obtained. There is no evidence of large vessel occlusion. There is no aneurysm noted. There is no active bleeding noted. This was interpreted by the radiologist and was also independently reviewed by myself. Portable 1 view chest x-ray was obtained. On my independent interpretation, lung adams are clear. There is normal cardiac silhouette. Bony thorax is normal. There is no acute process noted. Radiologist also interpreted the x-ray and agrees. EKG Initial EKG: Attestation: I personally reviewed and interpreted this EKG as follows: Interpretation: Sinus Rhythm (84) and No Acute Injury Pattern Comments: EKG was obtained. On my independent interpretation, it showed anormal sinus rhythm with a rate of 84. [place] interval, and QRS intervals were normal. QTc interval was slightly prolonged at 489 ms. [place] was normal. Thereare no acute ST or T wave changes. Prior EKG tracings: available for review Prior: Unchanged (04/20/2018) Management Discussion w/another healthcare provider: Hospitalist, Ammonium Nitrate Neutralizer (Stroke neurologist, Dr. Resendez) and Radiologist Treatment and Re-Evaluation Narrative: Patient was evaluated by stroke neurologist from [facility]. He recommended proceeding with tenecteplase. Risks and benefits of tenecteplase were discussed with the patient. She is agreeable with proceeding with tenecteplase. Case will be discussed with the hospitalist for admission here. Patient is agreeable with the plan. All questions were answered. Stroke Documentation Questions Stroke Team Activated: Yes Reviewed Inclusion/Exclusion criteria: Yes Was Patient considered for Endovascular Intervention?: No-CTA negative, determined not to be an endovascular candidate IV Thrombolytic Administered: Yes No contraindications from thrombolytic administration: Yes Risks, Benefits, Alternatives Discussed: Yes Critical Care Time Critical Care Time: Yes Critical care time (excluding procedures): 30-74 minutes (34), Including time spent:, Discussing w/Patient &/or Family/Finished Cigar Maker, Discussing w/Consultants, Arranging Admission or Transfer and Performing Direct Patient Care at Bedside Discharge Plan Dx/Rx/DC Orders Clinical Impression: Stroke, Obesity, Elevated blood pressure reading Disposition Disposition: Acute Care Hospital [facility] Discharge Date/Time: 11/29/22 15:48 What to do if you have Problems For any increased pain, shortness of breath, bleeding, nausea or vomiting, chestpain, or any unexpected problems, contact your Primary Care Provider. Call [facility] ([phone]) or report to the closest Emergency Room. Call 911 if necessary. 11/29/22 1721 <Electronically signed by Brendan Bo DO> Cosigner Signature (if applicable): CC: Dr. Camilla Castaneda MD ~ Signed [facility] Work Phone: [phone] 448-786904-25-2023 History and physical note Author Dr. Almaraz [facility] November 29, 2022 3:15pm Note Date/Time November 29, 2022 3:1 5pm [facility] Medical Records Department [address] [place] [address] H&P Exam - Hospitalist 11/29/22 1502 MR#: [id number] Acct: [id number] Name: SHAR DANIELS Rep #:[id number] : 1965 57 From: Vee Almaraz DO PCP: Dr. Camilla Castaneda MD Status:A DM IN Location: ICU CVICU20 2-1 HPI - General General Date of Admission: 11/29/22 Date of Service: 11/29/22 Chief Complaint: Bitemporal hemianopsia/left upper and lower extremity paresthesias/left facial droop HPI Narrative SHAR DANIELS, is a 57 F who presented to the emergency department at [facility] on 11/29/2022 with the complaint of bitemporal hemianopsia that started about 45 minutes prior to presentation. The patient states it is almost like she sees blood swirling in her visual field. Interestingly enough, on clinical exam she has no field visual cut. On exam she was also found to have some left upper and lower extremity sensory change and a mild left facial droop. Patient does not have any history of visual issues or stroke/TIA. She does have history of coronary disease, hyperlipidemia which she is intolerant ofstatins, and hypothyroidism. Stroke team was called prior to arrival and she was evaluated by the stroke neurologist at [facility]. Based on the findings tenecteplase was recommended and given in the emergency department. Atthe time of my evaluation her sensory issues had resolved, she still had a mild left facial droop and was still complaining of visual field issues however had anormal visual field exam. Vital signs on presentation demonstrated temperature of 97 degrees, heart rate 78, blood pressure initially was 199/106 but subsequent evaluations have been inthe 140s to 160s systolic and 80s to 100 diastolic, respiratory rate of 15 and oxygen saturation of 97% on room air. Her CBC was unremarkable. Coags were normal. Chemistry panel was unremarkable other than an elevated serum glucose of 203. She does not have a history of diabetes. Troponin was 4. EKG shows normal sinus rhythm with normal intervals and no ST-T wave changes concerning for acute ischemia. CT of the head was unremarkable for any acute findings. CTA of the head neck was unremarkable. She was given tenecteplase at 2:07 and request for admission to the intensive care unit was made. Initial NIH was 2 with one-point for sensory and one-point for left facial palsy. [facility] Medical History Abnormal echocardiogram (03/23/18) Anemia Anxiety Anxiety and depression Arthritis Arthritis of left temporomandibular joint Asthma Atherosclerosis of [place] coronary artery of [place] heart without angina pectoris Cardiology follow-up encounter Colon cancer screening Essential hypertension H/O bronchitis History of echocardiogram History of edema History of irregular heartbeat History of steroid therapy Hyperglycemia Hypertension Hypertension Hypothyroidism Left ventricular dysfunction Migraine headache Morbid obesity Nonischemic cardiomyopathy Nonrheumatic mitral (valve) insufficiency Nonrheumatic tricuspid (valve) insufficiency Normal stress echocardiogram Obesity Otitis media Post-menopausal Preventative health care Pure hypercholesterolemia Shortness of breath Shortness of breath on exertion Sinusitis Syncope Thyroid disease Thyroid disorder Vitiligo Wears glasses Home Medications ferrous sulfate 325 mg (65 mg iron) tablet 650 mg PO QODAY 03/11/21 [History Last Taken Unknown] albuterol sulfate 90 mcg/actuation aerosol inhaler 1 - 2 puff inhalation Q6H PRNSHORTNESS OF BREATH 11/29/22 [History Last Taken Unknown] aspirin 81 mg tablet,delayed release (Adult Aspirin Regimen) 81 mg PO DAILY HEART HEALTH 11/29/22 [History Last Taken 11/28/22] escitalopram oxalate 10 mg tablet 10 mg PO Q3D DEPRESSION 11/29/22 [History Last Taken 11/27/22] levothyroxine 150 mcg tablet 150 mcg PO DAILY THYROID 11/29/22 [History Last Taken 11/28/22] metoprolol tartrate 25 mg tablet 25 mg PO DAILY BLOOD PRESSURE 11/29/22 [History Last Taken 11/28/22] Allergy/AdvReac Type Severity Reaction Status Date / Time losartan Allergy Intermediate muscles Verified 11/29/22 13:01 locked up Sulfa (Sulfonamide Allergy Hives Verified 11/29/22 13:01 Antibiotics) rosuvastatin [From Crestor] AdvReac Severe Lymphadenopathy, Verified 11/29/22 13:01 edema, hyperthyroid atorvastatin [From Lipitor] AdvReac Intermediate Muscle Verified 11/29/22 13:01 aches/myalgias Family History Father CAD (coronary artery disease) Diabetes Dementia Heart disease Mother CAD (coronary artery disease) Hypertension Thyroid disorder Heart disease Sister Diabetes Type II Thyroid disorder Colon polyps Crohn's disease Sister Diabetes Type II Thyroid disorder Surgical History History of cardiac catheterization History of cholecystectomy History of colonoscopy History of laparoscopy History of left heart catheterization Hx of laparoscopy Stented coronary artery (04/19/18) Social History Smoking Status: Never smoker alcohol intake: current alcohol intake frequency: holidays/special occasions only substance use type: does not use caffeine: Yes Type: coffee Number of servings: 2 what type of physical activity do you participate in: none seatbelt use: always do you feel safe at home: Yes additional social history: - Sonny LETI Constitutional Constitutional: Denies anorexia, change in weight, chills, fatigue, fever(s), malaise, night sweats, weakness or other Eyes Eyes: Reports change in vision bilateral and loss of vision; Denies blurry vision, change in eye color, discharge from eye(s), double vision, erythema, eyepain or other ENT HEENT: Denies abnormal hearing, dysphagia, ear pain, epistaxis, headache(s), hearing loss, nasal congestion, nasal discharge, post nasal drip, sinus pressure, sore throat or other Cardiovascular Cardiovascular: Denies chest pain, claudication, dyspnea on exertion, edema, lightheadedness, orthopnea, palpitations, paroxysmal nocturnal dyspnea, rapid heart rate, syncope or other Respiratory/Chest Respiratory/Chest: Denies cough, dyspnea, excessive phlegm production, hemoptysis, productive cough, shortness of breath at rest, shortness of breath with exertion, wheezing or other Gastrointestinal Gastrointestinal: Denies abdominal pain, coffee ground emesis, constipation, diarrhea, dyspepsia, hematemesis, hematochezia, loose stools, melena, nausea, vomiting or other Genitourinary Genitourinary: Denies burning urination, difficulty urinating, dysuria, hematuria, nocturia, urinary frequency, urinary hesitancy, urinary incontinence,urinary urgency or other Musculoskeletal Musculoskeletal: Denies arthralgias, back pain, joint pain, joint stiffness, joint swelling, myalgias, neck pain or other Neurologic Neurologic: Reports paresthesias and other Psychiatric Psychiatric: Reports anxiety; Denies depression, homicidal ideation, suicidal ideation or other Endocrine Endocrinology: Denies change in body appearance, cold intolerance, excessive sweating, heat intolerance, polydipsia, polyuria or other Hematologic/Lymphatic Hematologic/Lymphatic: Denies anemia, easy bleeding, easy bruising, lymphadenopathy or other Allergic/Immunologic Allergic/Immunologic: Denies rhinitis, hives, eczemia, asthma or other Vital Signs Vital Signs Vital Signs: 11/29/22 13:00 11/29/22 13:27 11/29/22 14:07 Temperature 97.0 F L Temperature Source Temporal Pulse Rate 78 Respiratory Rate 15 Blood Pressure 199/106 H 146/106 H Blood Pressure Mean 137 Blood Pressure Source Blood Pressure Position Blood Pressure Location Pulse Ox 97 Oxygen Delivery Method Room Air Room Air 11/29/22 14:07 11/29/22 14:22 11/29/22 14:05 Temperature 97.7 F L 97.8 F Temperature Source Core Core Pulse Rate 87 79 80 Respiratory Rate 22 H 12 13 Blood Pressure 167/86 H 167/84 H 146/106 H Blood Pressure Mean 113 111 119 Blood Pressure Source Monitor Monitor Blood Pressure Position Semi-Fowlers Semi-Fowlers Blood Pressure Location Left Arm Left Arm Pulse Ox 97 96 97 Oxygen Delivery Method Room Air Room Air Room Air Weight Weight: 109.3 kg Body Mass Index (BMI) 44.0 Physical Exam Const alert, oriented x3, no apparent distress, healthy appearing and well nourished Constitutional Narrative: Middle-aged white female, morbidly obese, sitting in bed, appears comfortable, nontoxic, nursing at bedside General Appearance: cooperative HEENT normocephalic, head/scalp atraumatic, hearing grossly normal bilaterally and moist oral mucous membranes HEENT Narrative: Mallampati 3, no thrush, dentition is good Eyes PERRL, EOMs intact bilaterally and conjunctivae normal Eyes Narrative: No scleral icterus, no visual field cuts on exam Neck no lymphadenopathy, supple, no JVD and no carotid bruits Neck Narrative: Trachea midline Resp normal respiratory effort, no retractions, no use of accessory muscles and clearto auscultation bilaterally Auscultation: Negative for rales, rhonchi or wheezes Cardio regular rate, regular rhythm, S1 normal heart sound, S2 normal heart sound, no murmurs, no rub, no gallops and no clicks GI normal to inspection, nondistended, normoactive bowel sounds, soft to palpation and non-tender Extremity no clubbing, cyanosis or edema Extremity Narrative: 2+ pedal pulses Skin no rashes or lesions noted, no wounds, skin turgor normal, no jaundice, no petechiae and no mottling Neuro oriented x3, No CN's II-XII intact bilaterally, moves all extremities and no focal motor deficits Neuro Narrative: Mild left facial droop but all other cranial nerves unremarkable, visual adams intact, no sensory deficits Sensorium / Orientation: awake, alert, oriented to person, oriented to place andoriented to time Coordination / Balance: [id number] test normal and [id number] test normal Speech: speech normal Psych Mood & Affect: anxious Results Lab / Micro Data Result Diagrams: 11/29/22 13:05 11/29/22 13:05 Labs: Laboratory Results - last 24 hr 11/29/22 13:05: WBC 8.2, RBC 4.60, Hgb 13.7, Hct 42.7, MCV 92.8, MCH 29.8, MCHC 32.1, RDW Std Deviation 42.5, RDW Coeff of Evan 12.5, Plt Count 304, MPV 10.5, Immature Gran % (Auto) 1.100 H, Neut % (Auto) 53.9, Lymph % (Auto) 31.4, [place] % (Auto) 9.0, Eos % (Auto) 4.0, Baso % (Auto) 0.6, Absolute Neuts (auto) 4.4, Absolute Lymphs (auto) 2.58, Nucleated RBC % 0 11/29/22 13:05: PT 12.9, INR 1.0, APTT 27.0 11/29/22 13:05: Sodium 137, Potassium 3.6, Chloride 105, Carbon Dioxide 27.0, Anion Gap 5, BUN 14, Creatinine 0.81, Estim Creat Clear Calc 61.34, Est GFR (MDRD) Af Amer 94, Est GFR (MDRD) Non-Af 78, BUN/Creatinine Ratio 17.3, Glucose 203 H, Calcium 9.5, Troponin I High Sens 4 11/29/22 13:17: POC Glucose 239 H Radiology Impression Brain CT 11/29/22 13:03 IMPRESSION: Normal unenhanced CT scan of the brain. N.B. : The above Results were Read Back by Lon Eric MD to Dr Betzy DO, and understanding confirmed on 11/29/2022 13:35:18 (ET). Electronically Signed: Lon Eric MD at 13:36 EDT Reading Location ID and State: [facility] / [place] , Service support , ADDENDUM: 11/29/22 1343 IMPRESSION: Normal unenhanced CT scan of the brain. N.B. : The above Results were Read Back by Lon Eric MD to Dr Betzy DO, and understanding confirmed on 11/29/2022 13:35:18 (ET). Electronically Signed: Lon Eric MD at 13:36 EDT Reading Location ID and State: [facility] / [place] , Service support , Head/Neck CTA 11/29/22 13:15 IMPRESSION: Normal CTA Head and neck with contrast. N.B. : The above Results were Read Back by Lon Eric MD to Brendan Bo and understanding confirmed on 11/29/2022 13:37:10 (ET). Electronically Signed: Lon Eric MD at 13:38 EDT Reading Location ID and State: [facility] / [place] , Service support , ADDENDUM: 11/29/22 1345 IMPRESSION: Normal CTA Head and neck with contrast. N.B. : The above Results were Read Back by Lon Eric MD to Brendan Bo and understanding confirmed on 11/29/2022 13:37:10 (ET). Electronically Signed: Lon Eric MD at 13:38 EDT , Assessment & Plan Assessment/Plan (1) Facial droop: (2) Vision changes: (3) Paresthesias: (4) Hyperglycemia: PLAN: Plan Left-sided facial droop/visual changes/left-sided paresthesias -Concerning for acute stroke versus TIA -Stroke consult made in the emergency department and tenecteplase recommended and given at 2:07 PM -We will check follow-up MRI tomorrow afternoon 24 hours after tenecteplase given -Check echocardiogram -Bedrest until 24 hours post tenecteplase -Hold aspirin/subcu DVT prophylaxis until follow-up MRI performed to ensure no hemorrhagic transformation -Unable to dose statin as patient has statin intolerances -Check lipids -Check hemoglobin A1c -PT/OT consultation -SOC consultation after imaging done tomorrow Bitemporal hemianopsia -Patient reports visual field cut however none is present on exam -If persistent would recommend outpatient ophthalmology versus inpatient ophthalmology consultation -Really the only lesion that could cause this would be an optic chiasm lesion and there is no abnormality noted on CT -MRI pending for tomorrow Hyperglycemia -Patient without history of diabetes -Check hemoglobin A1c Hypothyroidism -Continue home Synthroid -Check TSH History of peripartum/ cardiomyopathy -Resolved CAD/HTN/HPL -Patient follows with Dr. Chino previously -status post LAD PCI/BLANCO (2018 with a 3.0x28 Promus drug-eluting stent) -Patient not on statin secondary to statin intolerance -Continue home metoprolol -As needed occasion avail bowel for the elevated systolic blood pressures however while for some permissive hypertension -May need up titration or new medication for antihypertensive added depending onblood pressure Depression -Continue home escitalopram Asthma -Continue as needed albuterol Morbid obesity -BMI 44.1 -Recommend weight loss -Complicates treatment, prognosis, outcomes -Patient should be evaluated for sleep apnea as an outpatient Vitiligo -Chronic stable DVT prophylaxis -SCDs -No chemoprophylaxis for 24 hours secondary to tenecteplase dosing CODE STATUS Full code Charges/Coding Visit Charges Inpatient E&M: 47656 Init Hosp L3 11/29/22 5271 <Electronically signed by Vee Almaraz DO> Cosigner Signature (if applicable): CC: Dr. Camilla Castaneda MD; Dr. Vee Almaraz DO~ Signed [facility] Work Phone: [phone] Procedure [facility] 09-30-2022 Procedure [facility]04-19-2021 NoteHNO ID: [id number] Author: Alvaro Wisdom Service: ? Author Type: Physician Type: Progress Notes Filed: 11/23/2020 4:30 PM Note Text: . [facility] - [place] [address], [address] [place], [place] [address] [facility] End[facility] - [address], [address] [place], [place] [address] Patient's name: Shar Daniels Patient's date of : 1965 Date of encounter: 11/23/2020 History of present illness: Shar Daniels is a 55 year old female who presents for follow up of an endocrinology issue. Thyroid: 1984: Around this time she was told underactive thyroid and started on Synthroid. 2014: Stated therapeutic lifestyle changes with weight loss achived. 08/31/2015: TSH 12.41 (0.36-3.74 mcIU/mL), free T4 0.88 (0.76-1.46 ng/dL), on levothyroxine 175, possibly increased to 200. This was eventually lowered back to 175 mcg daily. Unclear dates. 10/29/2015: Ultrasound of thyroid gland, at outside hospital: Markedly atrophic gland. Right lobe: 16 mm in length, Left lobe 18 mm in length, with heterogeneous architecture. There is a tiny cystic structure present in the inferior pole of the left lobe 3.4 mm. 11/11/2015: TSH 0.18 (0.36-3.74 mcIU/mL), free T4 1.53 (0.76-1.46 ng/dL), Total WBC normal. On levothyroxine 175 mcg daily. Her dose was decreased to levothyroxine 137 mcg daily. 11/11/2015: Thyroid peroxidase antibodies 4 (<9 intUnt/mL), Thyroglobulin antibodies 2 (<1 IntUnt/mL), 11/11/2015: Thyroid Stimulating Immunoglobulin (TSI) 30 (<140 %baseline), 11/2015: Initial consultation here. TSH 0.228 (0.358-3.740 uIU/mL), free T4 1.33 (0.76-1.46 ng/dL), free T3 1.8 (2.2-4.0 pg/ml), on levothyroxine 137 mcg daily (for less than a month). I changed her to a T4:T3 regimen, with levothyroxine 137 mcg daily with Liothyronine 5 mcg twice daily. 12/2015: AM cortisol 8.1 ug/dL. 12/07/2015: Patient reported GI issues with her new regimen. Unclear causality, but I had her stop the Liothyronine. She later reported she never did this. 03/2016: TSH 0.457 (0.358-3.740 uIU/mL), free T4 1.19 (0.76-1.46 ng/dL), free T3 2.0 (2.2-4.0 pg/mL), On levothyroxine 137 mcg daily with liothyronine 5 mcg twice daily. 06/2016: TSH 0.180 (0.358-3.740 uIU/mL), free T4 1.23 (0.76-1.46 ng/dL), free T3 2.8 (2.2-4.0 pg/mL), on levothyroxine 137 mcg daily with liothyronine 5 mcg twice daily. I lowered her levothyroxine to 125 mcg daily, and kept the liothyronine at 5 mcg twice daily. 01/2017: TSH 2.180 (0.358-3.740 uIU/mL), free T4 1.08 (0.76-1.46 ng/dL), free T3 2.1 (2.2-4.0 pg/mL), on levothyroxine 125 mcg daily and liothyronine 5 mcg twice daily. I changed the liothyronine to 10 mcg in AM and 5 mcg in PM. 07/2017: TSH 3.740 (0.358-3.740 uIU/mL), free T4 0.98 (0.76-1.46 ng/dL), free T3 3.0 (2.2-4.0 pg/mL), on levothyroxine 125 mcg daily and liothyronine 10 mcg in AM and 5 mcg in PM ? but missing PM dose often. I increased her levothyroxine to 137 mcg daily and stressed compliance with her PM liothyronine. 05/2018: TSH 0.044 (0.358-3.740 uIU/mL), free T4 1.34 (0.76-1.46 ng/dL), free T3 3.4 (2.2-4.0 pg/mL), on levothyroxine 137 mcg daily and liothyronine 10 mcg in am and 5 mcg in pm. I lowered her levothyroxine to 125 mcg daily. The liothyronine was kept the same. 06/2019: TSH 0.665 (0.358 - 3.740 uIU/mL), free T4 1.05 (0.76-1.46 ng/dL), free T3 2.5 (2.3-4.1 pg/mL), on levothyroxine 125 mcg daily and liothyronine 10 mcg in AM and 5 mcg in PM. 05/2020: TSH 1.170 (0.270-4.200 uIU/mL), free T4 1.3 (0.9-1.7 ng/dL), free T3 2.1 (2.3-4.1 pg/mL), on levothyroxine 125 mcg dailiy and liothyronine 10 mcg in AM and 5 mcg in PM. Interval history: The patient now returns for re-evaluation and follow-up. The above history was re-confirmed. When asked how she feels overall, she responded I am just tired Some falls lately- to has assessment soon with Primary Care Physician. She remains on a T4:T3 regimen with levothyroxine, dosed as 125 micrograms daily, and liothyronine, dose as 10 micrograms dosed in AM and 5 mcg in PM. She takes the levothyroxine in AM. Coffee is ingested around 1+ hour(s) after the levothyroxine. Other meds around the time of the levothyroxine: liothyronine. She takes the first liothyronine in AM. She takes the afternoon dose of liothyronine supper. No overt dysphagia of solids, liquids or pills. No overt globus sensation in neck. No new or existing hoarseness. No anterior neck compression / feeling of external pressure. Denies clearing of throat. Denies cough. Biotin use: Not using any [id number] Biotin supplements, or multi-vitamins with large doses of biotin such as Hair/Skin/Nail formulations. Not using any B-complex vitamin preparations. Not using any leave-in hair products with biotin. Other issue: Iron deficiency: 12/2015: Ferritin 6.3 (more content not included)...[facility] 11-23-2020 Instructions* Patient Instructions* Alvaro Wisdom - 11/23/2020 4:29 PM EDT COLLECTING URINE FOR 24 HOURS: 1. Best done the morning of one day to the morning of the next day ( two consecutive mornings). 2. Imperative that you arise from bed at the exact same time on Day 1 and Day 2. 3. When you arise on Day 1 you will have to urinate. This goes into the toilet and is flushed away. 4. Every time from then on for the remainder of Day 1 and at night Day 1 to Day 2, every drop of urine that you pass must go into the container that we will provide for you. 5. When you arise on Day 2 you will also have to urinate. This goes into the container and completes the urine collection. 6. The container should be kept refrigerated until it is turned in to the laboratory. 7. Bring the completed urine collection container to the laboratory as soon as possible. Levothyroxine / Synthroid use guidelines: Levothyroxine (brand names Synthroid, Levoxyl, Unithroid, or generic levothyroxine) is best taken all by itself, and with an empty stomach. The three best times to take the levothyroxine are: 1. In the morning (ideally the first thing you do when you wake up). See coffee issue, below. 2. At bedtime (if no other medicines or supplements at that time, and few hours after last food.) 3. In the middle of the night, when you wake up to urinate. This may be the ideal time, as it allows multiple hours prior to any other beverage/food or pill(s). Take the levothyroxine with water (and water only, no other type of beverages). Take one hour before any coffee, as coffee has been shown to interfere with the absorption of the levothyroxine. Take (at least) one hour prior to any other medicines. I prefer three hours, especially if the medication or supplement has iron or calcium. Take on empty stomach (one hour prior to food or three (or more) hours after a meal.) If you forget to take a dose, then its is ok to take two pills the next day. Liothyronine (Cytomel) use guidelines: Take first pill upon waking. This can be taken with a levothyroxine/ Synthroid pill, if that is also taken in the AM. Take the second pill in early afternoon (few hours after lunch and at least 1 hour prior to supper is ideal). Dont take the second Liothyronine too late in the day, as this is the active thyroid hormone, and could have a stimulant effect (which could disrupt sleep if taken too late in day.) If I have you on three times per day dosing, then take the second and third pills prior to lunch and supper meals. Ideally take 30-60 minutes prior to those meals. If you miss a dose, do not try to catch up. Just restart with the next scheduled dose. [facility] History of Present illness Narrative* Alvaro Wisdom - 11/23/2020 4:12 PM EDT Images from the original note were not included. . [facility] End[facility]ology - [address], [address] [place] [address] Endocrinology - [address], [address] [place] [address] Patient's name: Shar Daniels Patient's date of : 1965 Date of encounter: 11/23/2020 History of present illness: Shar Daniels is a 55 year old female who presents for follow up of an endocrinology issue. Thyroid: 1984: Around this time she was told underactive thyroid and started on Synthroid. 2015: Stated therapeutic lifestyle changes with weight loss achived. 08/31/2015: TSH 12.41 (0.36-3.74 mcIU/mL), free T4 0.88 (0.76-1.46 ng/dL), on levothyroxine 175, possibly increased to 200. This was eventually lowered back to 175 mcg daily. Unclear dates. 10/29/2015: Ultrasound of thyroid gland, at outside hospital: Markedly atrophic gland. Right lobe: 16 mm in length, Left lobe 18 mm in length, with heterogeneous architecture. There is a tiny cystic structure present in the inferior pole of the left lobe 3.4 mm. 11/11/2015: TSH 0.18 (0.36-3.74 mcIU/mL), free T4 1.53 (0.76-1.46 ng/dL), Total WBC normal. On levothyroxine 175 mcg daily. Her dose was decreased to levothyroxine 137 mcg daily. 11/11/2015: Thyroid peroxidase antibodies 4 (<9 intUnt/mL), Thyroglobulin antibodies 2 (<1 IntUnt/mL), 11/11/2015: Thyroid Stimulating Immunoglobulin (TSI) 30 (<140 %baseline), 11/2015: Initial consultation here. TSH 0.228 (0.358-3.740 uIU/mL), free T4 1.33 (0.76-1.46 ng/dL), free T3 1.8 (2.2-4.0 pg/ml), on levothyroxine 137 mcg daily (for less than a month). I changed her to a T4:T3 regimen, with levothyroxine 137 mcg daily with Liothyronine 5 mcg twice daily. 12/2015: AM cortisol 8.1 ug/dL. 12/07/2015: Patient reported GI issues with her new regimen. Unclear causality, but I had her stop the Liothyronine. She later reported she never did this. 03/2016: TSH 0.457 (0.358-3.740 uIU/mL), free T4 1.19 (0.76-1.46 ng/dL), free T3 2.0 (2.2-4.0 pg/mL), On levothyroxine 137 mcg daily with liothyronine 5 mcg twice daily. 06/2016: TSH 0.180 (0.358-3.740 uIU/mL), free T4 1.23 (0.76-1.46 ng/dL), free T3 2.8 (2.2-4.0 pg/mL), on levothyroxine 137 mcg daily with liothyronine 5 mcg twice daily. I lowered her levothyroxine to 125 mcg daily, and kept the liothyronine at 5 mcg twice daily. 01/2017: TSH 2.180 (0.358-3.740 uIU/mL), free T4 1.08 (0.76-1.46 ng/dL), free T3 2.1 (2.2-4.0 pg/mL), on levothyroxine 125 mcg daily and liothyronine 5 mcg twice daily. I changed the liothyronine to 10 mcg in AM and 5 mcg in PM. 07/2017: TSH 3.740 (0.358-3.740 uIU/mL), free T4 0.98 (0.76-1.46 ng/dL), free T3 3.0 (2.2-4.0 pg/mL), on levothyroxine 125 mcg daily and liothyronine 10 mcg in AM and 5 mcg in PM but missing PM dose often. I increased her levothyroxine to 137 mcg daily and stressed compliance with her PM liothyronine. 05/2018: TSH 0.044 (0.358-3.740 uIU/mL), free T4 1.34 (0.76-1.46 ng/dL), free T3 3.4 (2.2-4.0 pg/mL), on levothyroxine 137 mcg daily and liothyronine 10 mcg in am and 5 mcg in pm. I lowered her levothyroxine to 125 mcg daily. The liothyronine was kept the same. 06/2019: TSH 0.665 (0.358 - 3.740 uIU/mL), free T4 1.05 (0.76-1.46 ng/dL), free T3 2.5 (2.3-4.1 pg/mL), on levothyroxine 125 mcg daily and liothyronine 10 mcg in AM and 5 mcg in PM. 05/2020: TSH 1.170 (0.270-4.200 uIU/mL), free T4 1.3 (0.9-1.7 ng/dL), free T3 2.1 (2.3-4.1 pg/mL), on levothyroxine 125 mcg dailiy and liothyronine 10 mcg in AM and 5 mcg in PM. Interval history: The patient now returns for re-evaluation and follow-up. The above history was re-confirmed. When asked how she feels overall, she responded I am just tired Some falls lately- to has assessment soon with Primary Care Physician. She remains on a T4:T3 regimen with levothyroxine, dosed as 125 micrograms daily, and liothyronine,dose as 10 micrograms dosed in AM and 5 mcg in PM. She takes the levothyroxine in AM. Coffee is ingested around 1+ hour(s) after the levothyroxine. Other meds around the time of the levothyroxine: liothyronine. She takes the first liothyronine in AM. She takes the afternoon dose of liothyronine supper. No overt dysphagia of solids, liquids or pills. No overt globus sensation in neck. No new or existing hoarseness. No anterior neck compression / feeling of external pressure. Denies clearing of throat. Denies cough. Biotin use: Not using any [id number] Biotin supplements, or multi-vitamins with large doses of biotin such as Hair/Skin/Nail formulations. Not using any B- complex vitamin preparations. Not using any leave-in hair products with biotin. Other issue: Iron deficiency: 12/2015: Ferritin 6.30 (5.00-148.00 ng/mL), on no iron. I started Ferrous Gluconate 325 mg daily, separate from her thyroid meds. She could not find ferrous gluconate, and tried ferrous sulfate, and tolerated well without any allergic reactions. 03/2016: Ferritin 23.60 (5.00-148.00 ng/mL), on ferrous sulfate 325 mg daily. Tolerating the ferroussulfate without any allergic reactions. 06/2016: Ferritin 16.70 (5.00-148.00 ng/mL), on ferrous sulfate 325 mg daily. I asked her to attempt to get two pills per day, and use a vitamin C at same time to improve absorption. 01/2017: Ferritin 47.60 (5.00-148.00 ng/mL), on ferrous sulfate 325 mg x two pills daily. Improvement. I had her change to about 10 pills per week. 07/2017: Ferritin 39.40 (8.00-252.00 ng/mL), on iron 10 pills per week. I re- increased her to 2 perday. 05/2018: Ferritin 70.00 (8.00-252.00 ng/mL), on ferrous sulfate 325 mg x one pill day one, and two pills daily two. 06/2019: Ferritin 91.50 (8-252 ng/mL), 05/2020: Ferritin 152.8 (14.7-205.1 ng/mL), iron 50 (41-186 ug/dL), TIBC 309 (232-386 ug/dL), Iron % Saturation 16 (15-57%), on ferrous sulfate 325 mg x two pills every other day. Interval history: She self increased to daily. Other significant lab history: 01/2017: random cortisol 15.5 ug/dL, done at 11:41 AM. 01/2017: Celiac panel: Gliadin IgA Ab 7 (<20 units), Gliadin IgG Ab 2 (<20 Units), Reticulin Ab, IgA <1:5 (<1:5 ), Tissue Transgltaminase IgG 2 (<20 units), Transglutaminase IgA 4 (<20 units). Allergies, medications, medical and surgical history, family history and social history, and problem list reviewed. Preferred pharmacy for the medications I prescribe (or may prescribe) is: [facility] [address] [place] [phone] [facility] [phone] Review of Systems Constitutional: Negative for malaise/fatigue. Respiratory: Negative for shortness of breath. Cardiovascular: Negative for chest pain. Musculoskeletal: Positive for falls. Negative for joint pain. Neurological: Negative for tremors. Endo/Heme/Allergies: Bruises/bleeds easily. 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 Iron deficiency Migraine headache Obesity Vitiligo PAST SURGICAL HISTORY Procedure Laterality Date CHOLECYSTECTOMY HX PAST SURGICAL HISTORY OF Laproscopy: for adhesions FAMILY HISTORY Problem Relation Age of Onset Alcohol/Drug Father Diabetes Father Heart Father Heart Mother Thyroid Mother Hypothyroidism other (Vitiligo) Mother Thyroid Sister Hypothyroidism other (Vitiligo) Sister Thyroid Sister Hypothyroidism Social History Tobacco Use Smoking status: Never Smoker Smokeless tobacco: Never Used Vaping Use Vaping Use: Never used Substance Use Topics Alcohol use: No Drug use: No Current Outpatient Medications Medication Sig Dispense Refill levothyroxine (SYNTHROID) 125 mcg tablet Take 1 tablet by mouth once daily. 90 tablet 3 liothyronine (CYTOMEL) 5 mcg tablet Two pills (10 mcg) by mouth in AM, one pill (5 mcg) by mouth inPM 270 tablet 3 metoprolol tartrate, short acting, (LOPRESSOR) 25 mg tablet Take 25 mg by mouth twice daily. 1/2 tablet in the morning and 1/2 tablet in the evening. 11 escitalopram oxalate (LEXAPRO) 20 mg tablet Take 5 mg by mouth once daily. aspirin, enteric coated (ASPIRIN, ENTERIC COATED) 81 mg EC tablet Take 81 mg by mouth once daily. Cholecalciferol, Vitamin D3, (D3-2000) 2,000 unit cap Take by mouth. ferrous sulfate 325 mg (65 mg iron) tablet Take 650 mg by mouth every 48 hours. clopidogrel (PLAVIX) 75 mg tablet Take 75 mg by mouth once daily. (Patient not taking: Reported on 11/23/2020 ) No current facility-administered medications for this visit. BP 152/78 Pulse 61 Ht 5' 2 (1.58m) Wt 236 lb 4.8 oz (107.2kg) SpO2 98% BMI 43.21 kg/(m^2). Last 5 Encounter Wt Readings: Date: Wt: 05/21/2020 104.4 kg (230 lb 3.2 oz) 06/11/2019 111.6 kg (246 lb) 05/24/2018 99.5 kg (219 lb 6.4 oz) 07/26/2017 97.5 kg (215 lb) 01/25/2017 96.6 kg (213 lb) Physical Exam Vitals reviewed. Constitutional: Appearance: She is not toxic-appearing or diaphoretic. HENT: Head: Normocephalic and atraumatic. Eyes: General: No scleral icterus. Neck: Thyroid: No thyroid mass or thyromegaly. Comments: No palpable thyroid nodules or masses. Non-tender anterior neck. Cardiovascular: Rate and Rhythm: Normal rate and regular rhythm. Heart sounds: No murmur heard. Pulmonary: Effort: Pulmonary effort is normal. No respiratory distress. Breath sounds: Normal breath sounds. No wheezing, rhonchi or rales. Lymphadenopathy: Head: Right side of head: No submandibular, tonsillar or preauricular adenopathy. Left side of head: No submandibular, tonsillar or preauricular adenopathy. Cervical: No cervical adenopathy. Skin: General: Skin is warm. Comments: Some abdominal striae Neurological: Mental Status: She is alert and oriented to person, place, and time. Cranial Nerves: Cranial nerves are intact. Motor: No tremor (No tremor of outstretched hands). Psychiatric: Mood and Affect: Mood and affect normal. Judgment: Judgment normal. Assessment and Plans: 1. 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 Euthyroid exam today. I will check her thyroid hormone levels. Once those are reviewed, then I will adjust the dose(s) asneeded. She asked for branded Synthroid. Reviewed she will pay much higher copay. Once data reviewed, will then send an electronic prescription to local pharmacy in 30 day supplies. Preferred pharmacy for the medications I prescribe (or may prescribe) is: [address] [id number] [facility] [phone] - TSH BLD; Future - T4 FREE/FREE THYROX; Future - T3 FREE BLD; Future 2. Long-term current use of thyroid hormone replacement therapy Levothyroxine and liothyronine I reviewed the use of Levothyroxine and Liothyronine products. 3. Alban's thyroiditis Treat #1 4. Iron deficiency Recheck parameters. - FERRITIN BLD; Future - IRON + TIBC; Future 5. Fatigue, unspecified type Keep thyroid hormone levels at goal. Goal ferritin >50. 6. Family history of thyroid disease 7. Obesity, Class III, BMI 40-49.9 (morbid obesity) ([facility]) Therapeutic lifestyle changes 8. Disorder of adrenal gland (HCC) 24 Hour urine cortisol. - FREE ERIAK, UR LCMSMS; Future Alvaro Wisdom MD [facility] [place] [facility] History of Past illness Narrative* Problem Noted Date Resolved Date Hypothyroidism 11/23/2020 Alban's thyroiditis 11/24/19 21 documented as of this encounter (statuses as of 11/23/2020) [address]19-2021 History of Past illness Narrative* Problem Noted Date Resolved Date Hypothyroidism 11/23/2020 Alban's thyroiditis 11/24/19 21 documented as of this encounter (statuses as of 01/18/2023) [address]19-2021 History of Past illness Narrative* Problem Noted Date Resolved Date Hypothyroidism 11/23/2020 Alban's thyroiditis 11/24/19 21 documented as of this encounter (statuses as of 01/19/2023) [address]19-2021 History of Past illness Narrative* Problem Noted Date Resolved Date Hypothyroidism 11/23/2020 Alban's thyroiditis 11/24/19 21 documented as of this encounter (statuses as of 01/27/2023) [address]19-2021 History of Past illness Narrative* Problem Noted Date Resolved Date Hypothyroidism 11/23/2020 Alban's thyroiditis 11/24/19 21 documented as of this encounter (statuses as of 01/27/2023) [address]19-2021 History of Past illness Narrative* Problem Noted Date Resolved Date Hypothyroidism 11/23/2020 Alban's thyroiditis 11/24/19 21 documented as of this encounter (statuses as of 02/10/2023) [address]19-2021 History of Past illness Narrative* Problem Noted Date Diagnosed Date Resolved Date Hypothyroidism 11/23/2020 Alban's thyroiditis 11/05 documented as of this encounter (statuses as of 03/10/2023) [address]19-2021 History of Past illness Narrative* Problem Noted Date Diagnosed Date Resolved Date Hypothyroidism 11/23/2020 Alban's thyroiditis 11/05 documented as of this encounter (statuses as of 04/18/2023) [address]19-2021 History of Past illness Narrative* Problem Noted Date Diagnosed Date Resolved Date Hypothyroidism 11/23/2020 Alban's thyroiditis 11/05 documented as of this encounter (statuses as of 04/19/2023) [facility] History of Past illness Narrative* Problem Noted Date Diagnosed Date Resolved Date Hypothyroidism 11/23/2020 Alban's thyroiditis 11/05 documented as of this encounter (statuses as of 05/15/2023) [facility]21 NoteHNO ID: [id number] Author: Alvaro Wisdom Service: ? Author Type: Physician Type: Progress Notes Filed: 11/17/2020 8:26 AM Note Text: Note: The following is an abstracted note of the either a previous or a new History of Present Illness. This is in prep for an up-coming appointment or a summary update of a disease state. This is not a mjas-az-frck encounter. Previous history as follows: Thyroid: 1984: Around this time she was told underactive thyroid and started on Synthroid. 2014: Stated therapeutic lifestyle changes with weight loss achived. 08/31/2015: TSH 12.41 (0.36-3.74 mcIU/mL), free T4 0.88 (0.76-1.46 ng/dL), on levothyroxine 175, possibly increased to 200. This was eventually lowered back to 175 mcg daily. Unclear dates. 10/29/2015: Ultrasound of thyroid gland, at outside hospital: Markedly atrophic gland. Right lobe: 16 mm in length, Left lobe 18 mm in length, with heterogeneous architecture. There is a tiny cystic structure present in the inferior pole of the left lobe 3.4 mm. 11/11/2015: TSH 0.18 (0.36-3.74 mcIU/mL), free T4 1.53 (0.76-1.46 ng/dL), Total WBC normal. On levothyroxine 175 mcg daily. Her dose was decreased to levothyroxine 137 mcg daily. 11/11/2015: Thyroid peroxidase antibodies 4 (<9 intUnt/mL), Thyroglobulin antibodies 2 (<1 IntUnt/mL), 11/11/2015: Thyroid Stimulating Immunoglobulin (TSI) 30 (<140 %baseline), 11/2015: Initial consultation here. TSH 0.228 (0.358-3.740 uIU/mL), free T4 1.33 (0.76-1.46 ng/dL), free T3 1.8 (2.2-4.0 pg/ml), on levothyroxine 137 mcg daily (for less than a month). I changed her to a T4:T3 regimen, with levothyroxine 137 mcg daily with Liothyronine 5 mcg twice daily. 12/2015: AM cortisol 8.1 ug/dL. 12/07/2015: Patient reported GI issues with her new regimen. Unclear causality, but I had her stop the Liothyronine. She later reported she never did this. 03/2016: TSH 0.457 (0.358-3.740 uIU/mL), free T4 1.19 (0.76-1.46 ng/dL), free T3 2.0 (2.2-4.0 pg/mL), On levothyroxine 137 mcg daily with liothyronine 5 mcg twice daily. 06/2016: TSH 0.180 (0.358-3.740 uIU/mL), free T4 1.23 (0.76-1.46 ng/dL), free T3 2.8 (2.2-4.0 pg/mL), on levothyroxine 137 mcg daily with liothyronine 5 mcg twice daily. I lowered her levothyroxine to 125 mcg daily, and kept the liothyronine at 5 mcg twice daily. 01/2017: TSH 2.180 (0.358-3.740 uIU/mL), free T4 1.08 (0.76-1.46 ng/dL), free T3 2.1 (2.2-4.0 pg/mL), on levothyroxine 125 mcg daily and liothyronine 5 mcg twice daily. I changed the liothyronine to 10 mcg in AM and 5 mcg in PM. 07/2017: TSH 3.740 (0.358-3.740 uIU/mL), free T4 0.98 (0.76-1.46 ng/dL), free T3 3.0 (2.2-4.0 pg/mL), on levothyroxine 125 mcg daily and liothyronine 10 mcg in AM and 5 mcg in PM ? but missing PM dose often. I increased her levothyroxine to 137 mcg daily and stressed compliance with her PM liothyronine. 05/2018: TSH 0.044 (0.358-3.740 uIU/mL), free T4 1.34 (0.76-1.46 ng/dL), free T3 3.4 (2.2-4.0 pg/mL), on levothyroxine 137 mcg daily and liothyronine 10 mcg in am and 5 mcg in pm. I lowered her levothyroxine to 125 mcg daily. The liothyronine was kept the same. 06/2019: TSH 0.665 (0.358 - 3.740 uIU/mL), free T4 1.05 (0.76-1.46 ng/dL), free T3 2.5 (2.3-4.1 pg/mL), on levothyroxine 125 mcg daily and liothyronine 10 mcg in AM and 5 mcg in PM. 05/2020: TSH 1.170 (0.270-4.200 uIU/mL), free T4 1.3 (0.9-1.7 ng/dL), free T3 2.1 (2.3-4.1 pg/mL), on levothyroxine 125 mcg dailiy and liothyronine 10 mcg in AM and 5 mcg in PM. Other issue: Iron deficiency: 12/2015: Ferritin 6.30 (5.00-148.00 ng/mL), ?on no iron. I started Ferrous Gluconate 325 mg daily, separate from her thyroid meds. She could not find ferrous gluconate, and tried ferrous sulfate, and tolerated well without any allergic reactions. 03/2016: Ferritin 23.60 (5.00-148.00 ng/mL), on ferrous sulfate 325 mg daily. Tolerating the ferrous sulfate without any allergic reactions. 06/2016: Ferritin 16.70 (5.00-148.00 ng/mL), on ferrous sulfate 325 mg daily. I asked her to attempt to get two pills per day, and use a vitamin C at same time to improve absorption. 01/2017: Ferritin 47.60 (5.00-148.00 ng/mL), on ferrous sulfate 325 mg x two pills daily. Improvement. I had her change to about 10 pills per week. 07/2017: Ferritin 39.40 (8.00-252.00 ng/mL), on iron 10 pills per week. I re-increased her to 2 per day. 05/2018: Ferritin 70.00 (8.00-252.00 ng/mL), on ferrous sulfate 325 mg x one pill day one, and two pills daily two. 06/2019: Ferritin 91.50 (8-252 ng/mL), 05/2020: Ferritin 152.8 (14.7-205.1 ng/mL), iron 50 (41-186 ug/dL), TIBC 309 (232-386 ug/dL), Iron % Saturation 16 (15-57%), on ferrous sulfate 325 mg x two pills every other day. Other significant lab history: 01/2017: random cortisol 15.5 ug/dL, done at 11:41 AM. 01/2017: Celiac panel: Gliadin IgA Ab 7 (<20 units), Gliadin IgG Ab 2 (<20 Units), Reticulin Ab, IgA <1:5 (<1:5 ), Tissue Transgltamin (more content not included)...[facility]10-15-2020 NoteHNO ID: [id number] Author: Alvaro Wisdom Service: ? Author Type: Physician Type: Progress Notes Filed: 05/22/2020 1:01 PM Note Text: . [facility] [place] [address] [facility], [address] Endocrinology - [address], [address] [place], [place] [address] Patient's name: Shar Daniels Patient's date of : 1965 Date of encounter: 05/21/2020 History of present illness: Shar Daniels is a 54 year old female who presents for follow up of an endocrinology issue. Thyroid: 1984: Around this time she was told underactive thyroid and started on Synthroid. 2014: Stated therapeutic lifestyle changes with weight loss achived. 08/31/2015: TSH 12.41 (0.36-3.74 mcIU/mL), free T4 0.88 (0.76-1.46 ng/dL), on levothyroxine 175, possibly increased to 200. This was eventually lowered back to 175 mcg daily. Unclear dates. 10/29/2015: Ultrasound of thyroid gland, at outside hospital: Markedly atrophic gland. Right lobe: 16 mm in length, Left lobe 18 mm in length, with heterogeneous architecture. There is a tiny cystic structure present in the inferior pole of the left lobe 3.4 mm. 11/11/2015: TSH 0.18 (0.36-3.74 mcIU/mL), free T4 1.53 (0.76-1.46 ng/dL), Total WBC normal. On levothyroxine 175 mcg daily. Her dose was decreased to levothyroxine 137 mcg daily. 11/11/2015: Thyroid peroxidase antibodies 4 (<9 intUnt/mL), Thyroglobulin antibodies 2 (<1 IntUnt/mL), 11/11/2015: Thyroid Stimulating Immunoglobulin (TSI) 30 (<140 %baseline), 11/2015: Initial consultation here. TSH 0.228 (0.358-3.740 uIU/mL), free T4 1.33 (0.76-1.46 ng/dL), free T3 1.8 (2.2-4.0 pg/ml), on levothyroxine 137 mcg daily (for less than a month). I changed her to a T4:T3 regimen, with levothyroxine 137 mcg daily with Liothyronine 5 mcg twice daily. 12/2015: AM cortisol 8.1 ug/dL. 12/07/2015: Patient reported GI issues with her new regimen. Unclear causality, but I had her stop the Liothyronine. She later reported she never did this. 03/2016: TSH 0.457 (0.358-3.740 uIU/mL), free T4 1.19 (0.76-1.46 ng/dL), free T3 2.0 (2.2-4.0 pg/mL), On levothyroxine 137 mcg daily with liothyronine 5 mcg twice daily. 06/2016: TSH 0.180 (0.358-3.740 uIU/mL), free T4 1.23 (0.76-1.46 ng/dL), free T3 2.8 (2.2-4.0 pg/mL), on levothyroxine 137 mcg daily with liothyronine 5 mcg twice daily. I lowered her levothyroxine to 125 mcg daily, and kept the liothyronine at 5 mcg twice daily. 01/2017: TSH 2.180 (0.358-3.740 uIU/mL), free T4 1.08 (0.76-1.46 ng/dL), free T3 2.1 (2.2-4.0 pg/mL), on levothyroxine 125 mcg daily and liothyronine 5 mcg twice daily. I changed the liothyronine to 10 mcg in AM and 5 mcg in PM. 07/2017: TSH 3.740 (0.358-3.740 uIU/mL), free T4 0.98 (0.76-1.46 ng/dL), free T3 3.0 (2.2-4.0 pg/mL), on levothyroxine 125 mcg daily and liothyronine 10 mcg in AM and 5 mcg in PM ? but missing PM dose often. I increased her levothyroxine to 137 mcg daily and stressed compliance with her PM liothyronine. 05/2018: TSH 0.044 (0.358-3.740 uIU/mL), free T4 1.34 (0.76-1.46 ng/dL), free T3 3.4 (2.2-4.0 pg/mL), on levothyroxine 137 mcg daily and liothyronine 10 mcg in am and 5 mcg in pm. I lowered her levothyroxine to 125 mcg daily. The liothyronine was kept the same. 06/2019: TSH 0.665 (0.358 - 3.740 uIU/mL), free T4 1.05 (0.76-1.46 ng/dL), free T3 2.5 (2.3-4.1 pg/mL), on levothyroxine 125 mcg daily and liothyronine 10 mcg in AM and 5 mcg in PM. Interval history: The patient now returns for re-evaluation and follow-up. The above history was re-confirmed. When asked how she feels overall, she responded ok but still with fatigue. She remains on a T4:T3 regimen with levothyroxine, dosed as 125 micrograms daily, and liothyronine, dose as 10 micrograms dosed in the AM, and 5 micrograms dosed in the PM. She takes the levothyroxine 9 AM with her liothyronine. Coffee is ingested around 1+ hour(s) after the levothyroxine. Other meds around the time of the levothyroxine: liothyronine She takes the first liothyronine around 9 am when she wakes. She takes the afternoon dose of liothyronine 6 pm. Iron is around 6-9 pm. No overt dysphagia of solids, liquids or pills. No overt globus sensation in neck. No new or existing hoarseness. No anterior neck compression / feeling of external pressure. Denies clearing of throat. Denies cough. Biotin use: Not using any nipj-kls-okvdbat Biotin supplements, or multi-vitamins with large doses of biotin such as Hair/Skin/Nail formulations. Not using any B-complex vitamin preparations. Not using any leave-in hair products with biotin. Other issue: Iron deficiency: 12/2015: Ferritin 6.30 (5.00-148.00 ng/mL), ?on no iron. I started Ferrous Gluconate 325 mg daily, separate from her thyroid meds. She could not find ferrous gluconate, and (more content not included)...[facility]10-13-2020 NoteHNO ID: [id number] Author: Alvaro Wisdom Service: ? Author Type: Physician Type: Progress Notes Filed: 05/19/2020 6:12 PM Note Text: Note: The following is an abstracted note of the either a previous or a new History of Present Illness. This is in prep for an up-coming appointment. This is not a fpiv-vn-fohl encounter. Previous history as follows: Thyroid: 1984: Around this time she was told underactive thyroid and started on Synthroid. 2014: Stated therapeutic lifestyle changes with weight loss achived. 08/31/2015: TSH 12.41 (0.36-3.74 mcIU/mL), free T4 0.88 (0.76-1.46 ng/dL), on levothyroxine 175, possibly increased to 200. This was eventually lowered back to 175 mcg daily. Unclear dates. 10/29/2015: Ultrasound of thyroid gland, at outside hospital: Markedly atrophic gland. Right lobe: 16 mm in length, Left lobe 18 mm in length, with heterogeneous architecture. There is a tiny cystic structure present in the inferior pole of the left lobe 3.4 mm. 11/11/2015: TSH 0.18 (0.36-3.74 mcIU/mL), free T4 1.53 (0.76-1.46 ng/dL), Total WBC normal. On levothyroxine 175 mcg daily. Her dose was decreased to levothyroxine 137 mcg daily. 11/11/2015: Thyroid peroxidase antibodies 4 (<9 intUnt/mL), Thyroglobulin antibodies 2 (<1 IntUnt/mL), 11/11/2015: Thyroid Stimulating Immunoglobulin (TSI) 30 (<140 %baseline), 11/2015: Initial consultation here. TSH 0.228 (0.358-3.740 uIU/mL), free T4 1.33 (0.76-1.46 ng/dL), free T3 1.8 (2.2-4.0 pg/ml), on levothyroxine 137 mcg daily (for less than a month). I changed her to a T4:T3 regimen, with levothyroxine 137 mcg daily with Liothyronine 5 mcg twice daily. 12/2015: AM cortisol 8.1 ug/dL. 12/07/2015: Patient reported GI issues with her new regimen. Unclear causality, but I had her stop the Liothyronine. She later reported she never did this. 03/2016: TSH 0.457 (0.358-3.740 uIU/mL), free T4 1.19 (0.76-1.46 ng/dL), free T3 2.0 (2.2-4.0 pg/mL), On levothyroxine 137 mcg daily with liothyronine 5 mcg twice daily. 06/2016: TSH 0.180 (0.358-3.740 uIU/mL), free T4 1.23 (0.76-1.46 ng/dL), free T3 2.8 (2.2-4.0 pg/mL), on levothyroxine 137 mcg daily with liothyronine 5 mcg twice daily. I lowered her levothyroxine to 125 mcg daily, and kept the liothyronine at 5 mcg twice daily. 01/2017: TSH 2.180 (0.358-3.740 uIU/mL), free T4 1.08 (0.76-1.46 ng/dL), free T3 2.1 (2.2-4.0 pg/mL), on levothyroxine 125 mcg daily and liothyronine 5 mcg twice daily. I changed the liothyronine to 10 mcg in AM and 5 mcg in PM. 07/2017: TSH 3.740 (0.358-3.740 uIU/mL), free T4 0.98 (0.76-1.46 ng/dL), free T3 3.0 (2.2-4.0 pg/mL), on levothyroxine 125 mcg daily and liothyronine 10 mcg in AM and 5 mcg in PM ? but missing PM dose often. I increased her levothyroxine to 137 mcg daily and stressed compliance with her PM liothyronine. 05/2018: TSH 0.044 (0.358-3.740 uIU/mL), free T4 1.34 (0.76-1.46 ng/dL), free T3 3.4 (2.2-4.0 pg/mL), on levothyroxine 137 mcg daily and liothyronine 10 mcg in am and 5 mcg in pm. I lowered her levothyroxine to 125 mcg daily. The liothyronine was kept the same. 06/2019: TSH 0.665 (0.358 - 3.740 uIU/mL), free T4 1.05 (0.76-1.46 ng/dL), free T3 2.5 (2.3-4.1 pg/mL), on levothyroxine 125 mcg daily and liothyronine 10 mcg in AM and 5 mcg in PM. Other issue: Iron deficiency: 12/2015: Ferritin 6.30 (5.00-148.00 ng/mL), ?on no iron. I started Ferrous Gluconate 325 mg daily, separate from her thyroid meds. She could not find ferrous gluconate, and tried ferrous sulfate, and tolerated well without any allergic reactions. 03/2016: Ferritin 23.60 (5.00-148.00 ng/mL), on ferrous sulfate 325 mg daily. Tolerating the ferrous sulfate without any allergic reactions. 06/2016: Ferritin 16.70 (5.00-148.00 ng/mL), on ferrous sulfate 325 mg daily. I asked her to attempt to get two pills per day, and use a vitamin C at same time to improve absorption. 01/2017: Ferritin 47.60 (5.00-148.00 ng/mL), on ferrous sulfate 325 mg x two pills daily. Improvement. I had her change to about 10 pills per week. 07/2017: Ferritin 39.40 (8.00-252.00 ng/mL), on iron 10 pills per week. I re-increased her to 2 per day. 05/2018: Ferritin 70.00 (8.00-252.00 ng/mL), on ferrous sulfate 325 mg x one pill day one, and two pills daily two. 06/2019: ferritin 91.50 (8-252 ng/mL), No previous allergic reactions to the sulfate form. Still on this ferrous sulfate, which is confirmed as 325 mg. Tolerating. Taking two pills, every other day. Takes this around 9 pm. Other significant lab history: 01/2017: random cortisol 15.5 ug/dL, done at 11:41 AM. 01/2017: Celiac panel: Gliadin IgA Ab 7 (<20 units), Gliadin IgG Ab 2 (<20 Units), Reticulin Ab, IgA <1:5 (<1:5 ), Tissue Transgltaminase IgG 2 (<20 units), Transglutaminase IgA 4 (<20 units).[facility]. [facility] December 01, 2022 10:33am Note Date/Time December 01, 2022 10: 33am [facility] Medical Records Department [address] [place] [id number] Discharge Summary 12/01/22 1029 MR#: [id number] Acct: [id number] Name: SHAR DANIELS Rep #:[id number] : 1965 57 From: Odin matos MD PCP: Dr. Camilla Castaneda MD Status:A DM IN Location: ICU CVICU20 2-1 Providers Date of Admission: 11/29/22 Primary Care Physician: Dr. Camilla Castaneda MD Consultations 11/29/22 13:48 Consult: Cambering Machine Operator / Pulmonary Medicine Routine Consulting Provider: [facility] Reason for Consult: stroke for thrombolytic administration EMERGENT Consult: Yes MD Notified: Yes Date Notified: 11/29/22 Time Notified: 13:48 Method of Notification: Text Method of Consult:: In-Person Comments:: Consult may be done in ED or ICU Reason For Visit: STROKE, ELEVATED BLOOD PRESSURE Diagnosis Discharge Diagnosis (1) Facial droop: Status: Acute Code(s): R29.810 - Facial weakness (2) Vision changes: Status: Acute Code(s): H53.9 - Unspecified visual disturbance (3) Paresthesias: Status: Acute Code(s): R20.2 - Paresthesia of skin (4) Hyperglycemia: Status: Acute Code(s): R73.9 - Hyperglycemia, unspecified Medications at Discharge Home Medications ferrous sulfate 325 mg (65 mg iron) tablet 650 mg PO QODAY SUPPLEMENT 03/11/21 albuterol sulfate 90 mcg/actuation aerosol inhaler 1 - 2 puff inhalation Q6H PRNSHORTNESS OF BREATH 11/29/22 aspirin 81 mg tablet,delayed release (Adult Aspirin Regimen) 81 mg PO DAILY HEART HEALTH 11/29/22 escitalopram oxalate 10 mg tablet 10 mg PO Q3D DEPRESSION 11/29/22 metoprolol tartrate 25 mg tablet 25 mg PO DAILY BLOOD PRESSURE 11/29/22 levothyroxine 112 mcg capsule 112 mcg PO DAILY #30 caps 12/01/22 Hospital Course Operations None Procedures 2-D Echocardiogram Summary of Care Provided Minutes Spent on Discharge: 33 Hospital Course: Per HPI: SHAR DANIELS, is a 57 F who presented to the emergency department at [facility] on 11/29/2022 with the complaint of bitemporal hemianopsia that started about 45 minutes prior to presentation.? The patient states it is almost like she sees blood swirling in her visual field.? Interestingly enough, on clinical exam she has no field visual cut.? On exam she was also found to have some left upper and lower extremity sensory change and a mild left facial droop.? Patient does not have any history of visual issues or stroke/TIA.? She does have history of coronary disease, hyperlipidemia which sheis intolerant of statins, and hypothyroidism.? Stroke team was called prior to arrival and she was evaluated by the stroke neurologist at [facility].? Based on the findings tenecteplase was recommended and given in the emergency department.? At the time of my evaluation her sensory issues had resolved, she still had a mild left facial droop and was still complaining of visual field issues however had a normal visual field exam. Vital signs on presentation demonstrated temperature of 97 degrees, heart rate 78, blood pressure initially was 199/106 but subsequent evaluations have been inthe 140s to 160s systolic and 80s to 100 diastolic, respiratory rate of 15 and oxygen saturation of 97% on room air.? Her CBC was unremarkable.? Coags were normal.? Chemistry panel was unremarkable other than an elevated serum glucose of 203.? She does not have a history of diabetes.? Troponin was 4.? EKG shows normal sinus rhythm with normal intervals and no ST-T wave changes concerning for acute ischemia.? CT of the head was unremarkable for any acute findings.? CTA of the head neck was unremarkable. She was given tenecteplase at 2:07 and request for admission to the intensive care unit was made.? Initial NIH was 2 with one-point for sensory and one-point for left facial palsy. Hospital Course: 1. Left-sided droop with visual changes out of her left eye and left-sided paresthesias/bitemporal hemianopsia/morbid obesity ?She did receive thrombolytics ? Continue with stroke protocol ? Echo was unremarkable with an EF of 53%. She does have stage I diastolic dysfunction as well as a pulmonary artery systolic pressure of 40 mmHg ? MRI at the 24-hour susanna after thrombolytics was negative for stroke or head bleed. There is also no findings to explain initially her bitemporal hemianopsia followed by her left 5 vision changes ? PT/OT ? BMI is 42.8, lifestyle modifications were discussed ? I discussed with her the plan for discharge today she expressed understanding of the risk benefits going home and would like to go home today. She states that all of her symptoms have resolved other than the blurry vision in her left eye which she has an ophthalmology appointment for tomorrow. She is intolerant to statins so we will just continue with an aspirin on discharge and I recommendthat she follow-up with her PCP in 3 to 5 days. 2. CAD status post stent/HTN/HLD/history of cardiomyopathy ? Blood pressures are stable ? She is intolerant of statins ? Can resume aspirin on discharge 3. Hypothyroidism ? We will continue with her home Synthroid ? Her TSH was low and her T4 was elevated so I decreased her Synthroid from 150 mcg down to 112 mcg daily, she will need to have outpatient monitoring of her TSH by her PCP. 4. Depression ? Stable ? Continue with medications 5. Asthma ? Stable ? Continue with inhalers Physical Exam Narrative General: Alert, Oriented x3, Cooperative, No apparent distress HEENT: Atraumatic, PERRLA, EOMI, Normocephalic Oral: Moist Mucosa Neck: Supple, No JVD Lungs: Clear to auscultation, Normal air movement, No rhonchi, No wheeze, No rales Cardiovascular: Regular rate, Regular Rhythm, Normal S1, Normal S2, No murmurs Abdomen: Soft, Non Tender, Non-Distended, No Hepato-splenomegaly Extremities: No edema, Capillary Refill Less than 3 Seconds Skin: No rashes, No breakdown Musculoskeletal: No Tenderness to Palpation of Joints or Extremities Neurological: Cranial nerves II-XII grossly intact, Motor Exam 5/5 strength throughout, Sensory exam intact to light touch and pain Psych/Mental Status: Normal Affect, Appropriate Weight / BMI Weight Weight: 234 lb 2.095 oz Body Mass Index (BMI) 42.8 ABG / Lab / Microbiology Data Result Diagrams: 11/30/22 04:05 11/30/22 04:05 Laboratory: Laboratory Results - last 24 hr 11/30/22 04:05: Free T4 1.57 H Radiography Diagnostic Testing: Radiology Impression Echocardiogram 11/29/22 15:00 Interpretation Summary Normal LV size. Left ventricular systolic function is normal. The estimated ejection fraction is 53 %. Bubble contrast study negative for right to left interatrial shunt. Stage 1 diastolic dysfunction. Pulmonary artery systolic pressure is 40 mmHg. Ordering Physician: Vee Almaraz Referring Physician: Camilla Castaneda Performed By: Rebekah Goode, RDCS, RVT Brain MRI 11/30/22 14:30 IMPRESSION: Negative MRI brain without intravenous contrast. Electronically Signed: Javier Fu MD at 18:03 EDT , D/C Instructions Discharge Diet: Low fat / Low cholesterol Call your doctor if you observe: Fever of 101 or Higher, Shortness of breath, Dizziness, Fainting spells, Swelling in the ankles, Chest pain and Increased palpitations (irregular heartbeat) Meaningful Use Info Meaningful Use Diagnoses (Choose all that apply): None applicable Discharge Plan Admission Admit Date/Time: 11/29/22 14:24 Attending Provider: Odin Springer Primary Care Provider: Camilla Castaneda Consulting Providers: Krishna Hoffmann ; Khanh Allen ; Sung Lozano ; Rafy Can ; Magda Mendenhall NP ; Vee Almaraz Instructions Additional Instructions / Restrictions: Follow-up with ophthalmology tomorrow to evaluate the blurry vision changes in your left eye. MRI of your brain was negative. I decreased her Synthroid from 150 mcg to 112 mcg because her TSH was low and your free T4 was elevated. Discharge Orders/Prescriptions Prescriptions: New levothyroxine 112 mcg capsule 112 mcg PO DAILY Qty: 30 0RF Continued ferrous sulfate 325 mg (65 mg iron) tablet 650 mg PO QODAY aspirin [Adult Aspirin Regimen] 81 mg tablet,delayed release (DR/EC) 81 mg PO DAILY albuterol sulfate 90 mcg/actuation HFA aerosol inhaler 1 - 2 puff inhalation Q6H PRN (Reason: SHORTNESS OF BREATH ) escitalopram oxalate 10 mg tablet 10 mg PO Q3D metoprolol tartrate 25 mg tablet 25 mg PO DAILY Discontinued levothyroxine 150 mcg tablet 150 mcg PO DAILY Referrals / Follow Up: Camilla Castaneda MD [Primary Care Provider] - Within 1 Week Disposition Disposition (needs filled in before D/C Order can be placed): Home, Self Care Charges/Coding Visit Charges Inpatient E&M: 38012 Disch Hosp >30min 12/01/22 1033 <Electronically signed by Odin Springer MD> Cosigner Signature (if applicable): CC: Dr. Camilla Castaneda MD; Dr. 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 Long-term current use of thyroid hormone replacement therapy Alban's thyroiditis Chronic lymphocytic thyroiditis Iron deficiency Iron deficiency anemia, unspecified Fatigue, unspecified type Family history of thyroid disease Family history of other endocrine and metabolic diseases Obesity, Class III, BMI 40-49.9 (morbid obesity) (HCC) Morbid obesity Disorder of adrenal gland (HCC) Unspecified disorder of adrenal glands [facility] Diagnosis Onset Date Resolution Status Essential hypertension acute [id number] chronic Nonischemic cardiomyopathy c hronic Nonrheumatic mitral (valve) insufficiency chronic Nonrheumatic tricuspid (valve) insufficiency chronic Pure hypercholesterolemia ch ronic Stented coronary artery April 19, 2018 chronic Colon cancer screening acute Preventative health care acu te [facility] Work Phone: Evaluation note* Diagnosis Onset Date Resolution Status Right otitis media noneactiv e Dysuria noneactive Dysuria noneactive Left flank pain noneactive [facility] Work Phone: Evaluation note* Diagnosis Onset Date Resolution Status Right otitis media noneactiv e Dysuria noneactive Dysuria noneactive Left flank pain noneactive Hypothyroidism chronic Colon cancer screening acute [facility] Work Phone: Evaluation note* Diagnosis Onset Date Resolution Status Right otitis media noneactiv e Dysuria noneactive Dysuria noneactive Left flank pain noneactive Hypothyroidism chronic Colon cancer screening acute Climacteric acute Routine gynecological examination noneactive Elevated blood pressure reading acute Facial droop acute Hyperglycemia acute Obesity acute Paresthesias acute Stroke acute Vision changes acute [facility] Work Phone: Evaluation note* Diagnosis Body mass index 40.0-44.9, adult (HCC)- Primary Body Mass Index 40.0-44.9, adult Essential (primary) hypertension Unspecified essential hypertension Hypertensive retinopathy, unspecified laterality [facility] Diagnosis NO SHOW- Primary documented in this encounter [facility] note* Diagnosis Obesity, Class III, BMI 40-49.9 (morbid obesity) (HCC)- Primary Morbid obesity Dietary counseling and surveillance Dietary surveillance and counseling documented in this encounter [facility] note* Diagnosis Controlled depression- Primary Depressive disorder, not elsewhere classified History of bulimia Personal history of other mental disorder Psychological factors affecting morbid obesity (HCC) Psychic factors associated with diseases classified elsewhere documented in this encounter [facility] note* Diagnosis Pre-op examination- Primary Preoperative examination, unspecified Class 3 severe obesity due to excess calories with serious comorbidity and body mass index (BMI) of 40.0 to 44.9 in adult (HCC) Controlled type 2 diabetes mellitus without complication, unspecified whether mcc insulin use (HCC) Pre-op examination Preoperative examination, unspecified Class 3 severe obesity due to excess calories with serious comorbidity and body mass index (BMI) of 40.0 to 44.9 in adult (HCC) Controlled type 2 diabetes mellitus without complication, unspecified whether long term care phlebotomist insulin use (HCC) documented in this encounter [facility] note* Diagnosis Onset Date Resolution Status Essential hypertension acute Type 2 diabetes mellitus acu te Hypothyroidism chronic Essential hypertension acute Stroke acute [id number] chronic Nonischemic cardiomyopathy c hronic Pure hypercholesterolemia ch ronic Osteoarthritis of knees, bilateral acute [facility] Work Phone: Evaluation note* Diagnosis Obesity, Class III, BMI 40-49.9 (morbid obesity) (HCC)- Primary Morbid obesity Dietary counseling and surveillance Dietary surveillance and counseling Pre-op examination Preoperative examination, unspecified Class 3 severe obesity due to excess calories with serious comorbidity and body mass index (BMI) of 40.0 to 44.9 in adult (HCC) Controlled type 2 diabetes mellitus without complication, unspecified whether mcc insulin use (HCC) documented in this encounter [facility] note* Diagnosis Class 3 severe obesity due to excess calories with serious comorbidity and body mass index (BMI) of 40.0 to 44.9 in adult (HCC)- Primary Controlled type 2 diabetes mellitus without complication, unspecified whether long term care phlebotomist insulin use (HCC) Essential (primary) hypertension Unspecified essential hypertension Pre-op examination Preoperative examination, unspecified Class 3 severe obesity due to excess calories with serious comorbidity and body mass index (BMI) of 40.0 to 44.9 in adult (HCC) Controlled type 2 diabetes mellitus without complication, unspecified whether mcc insulin use (HCC) documented in this encounter [facility] note* Diagnosis Pre-operative examination- Primary Preoperative examination, unspecified History of TIA (transient ischemic attack) Transient ischemic attack (TIA), and cerebral infarction without residual deficits Essential (primary) hypertension Unspecified essential hypertension Coronary artery disease involving [place] coronary artery of [place] heart without angina pectoris History of cardiomyopathy Personal history of other diseases of circulatory system Mild intermittent asthma without complication Unspecified asthma Hypothyroidism, unspecified type Type 2 diabetes mellitus without complication, without long-term current use of insulin ([facility]) Obesity, Class III, BMI >= 40 Morbid obesity Post-operative nausea and vomiting Nausea with vomiting Pre-op examination Preoperative examination, unspecified Class 3 severe obesity due to excess calories with serious comorbidity and body mass index (BMI) of 40.0 to 44.9 in adult ([facility]) Controlled type 2 diabetes mellitus without complication, unspecified whether mcc insulin use ([facility]) documented in this encounter [facility] note* Diagnosis Obesity, Class III, BMI 40-49.9 (morbid obesity) ([facility]) Morbid obesity documented in this encounter [facility] note* Diagnosis S/P laparoscopic sleeve gastrectomy- Primary Bariatric surgery status Obesity, Class II, BMI 35-39.9 Obesity, unspecified Dietary counseling and surveillance Dietary surveillance and counseling documented in this encounter [facility] note* Diagnosis Bariatric surgery status- Primary documented in this encounter [facility] note* Diagnosis Onset Date Resolution Status Osteoarthritis of knees, bilateral acute Osteoarthritis of knees, bilateral acute [facility] Work Phone: Evaluation note* Diagnosis S/P laparoscopic sleeve gastrectomy- Primary Bariatric surgery status Obesity, Class II, BMI 35-39.9 Obesity, unspecified Dietary counseling and surveillance Dietary surveillance and counseling documented in this encounter [facility] note* Diagnosis S/P laparoscopic sleeve gastrectomy- Primary Bariatric surgery status documented in this encounter [facility] note* Diagnosis S/P gastric sleeve procedure- Primary Dietary counseling and surveillance Dietary surveillance and counseling documented in this encounter [facility] noteNo assessment information availableW[facility] Work Phone: Evaluation note* Diagnosis Pre-operative examination- Primary Preoperative examination, unspecified History of TIA (transient ischemic attack) Transient ischemic attack (TIA), and cerebral infarction without residual deficits Essential (primary) hypertension Unspecified essential hypertension Coronary artery disease involving [place] coronary artery of [place] heart without angina pectoris History of cardiomyopathy Personal history of other diseases of circulatory system Mild intermittent asthma without complication Unspecified asthma Hypothyroidism, unspecified type Type 2 diabetes mellitus without complication, without long-term current use of insulin (HCC) Obesity, Class III, BMI >= 40 Morbid obesity Post-operative nausea and vomiting Nausea with vomiting S/P gastric sleeve procedure- Primary Dietary counseling and surveillance Dietary surveillance and counseling [facility] Author Dr. Zee [facility] September 30, 2022 7:22am Note Date/Time September 30, 2022 7:22am [facility] Medical Records Department [address] [place] [address] History & Physical Exam 09/30/22720 MR#: [id number] Acct: [id number] Name: SHAR DANIELS Rep #:[id number] : 1965 57 From: Favian ortiz MD PCP: Dr. Camilla Castaneda MD Status:R [facility] Location: [place] [address] HPI - General HPI Narrative SHAR DANIELS, is a 57 F who presents for screening colonoscopy. Patient thinks she might have had a colonoscopy in her 20s but not in the last 10 years. She denies any abdominal pain or blood in the stool. She has no family history of colon cancer but she does have family history of Crohn's disease. [facility] Medical History Abnormal echocardiogram (03/23/18) Anemia Anxiety Anxiety and depression Arthritis Arthritis of left temporomandibular joint Asthma Atherosclerosis of [place] coronary artery of [place] heart without angina pectoris Cardiology follow-up encounter Colon cancer screening Essential hypertension H/O bronchitis History of echocardiogram History of edema History of irregular heartbeat History of steroid therapy Hyperglycemia Hypertension Hypertension Hypothyroidism Left ventricular dysfunction Migraine headache Morbid obesity Nonischemic cardiomyopathy Nonrheumatic mitral (valve) insufficiency Nonrheumatic tricuspid (valve) insufficiency Normal stress echocardiogram Obesity Otitis media Post-menopausal Preventative health care Pure hypercholesterolemia Shortness of breath Shortness of breath on exertion Sinusitis Syncope Thyroid disease Thyroid disorder Vitiligo Wears glasses Home Medications cholecalciferol (vitamin D3) 50 mcg (2,000 unit) tablet 2,000 unit PO DAILY 05/18/18 [History Last Taken Unknown] aspirin 81 mg tablet,delayed release (Adult Aspirin Regimen) 81 mg PO DAILY #30 tabs 05/02/19 [Rx Last Taken 09/27/22] ferrous sulfate 325 mg (65 mg iron) tablet 650 mg PO QODAY 03/11/21 [History Last Taken Unknown] metoprolol tartrate 25 mg tablet 25 mg PO DAILY #90 tabs 07/26/21 [Rx Last Taken 09/29/22] hydrocortisone 2.5 % topical cream 1 applic topical BID PRN rash #30 grams 10/19/21 [Rx Last Taken Unknown] albuterol sulfate 90 mcg/actuation aerosol inhaler 1 - 2 puff inhalation Q6H PRNshortness of breath or wheezing #8.5 grams 08/04/22 [Rx Last Taken Unknown] escitalopram oxalate 10 mg tablet 10 mg PO DAILY #90 tabs 08/04/22 [Rx Last Taken Unknown] hydrocodone-acetaminophen 5-325mg 5mg-325mg 1 tab PO Q6H PRN PRN Pain 3 days #12TABLETS 09/12/22 [Rx Last Taken Unknown] levothyroxine 150 mcg tablet 150 mcg PO DAILY #30 tabs 09/29/22 [Rx Last Taken Unknown] Allergy/AdvReac Type Severity Reaction Status Date / Time losartan Allergy Intermediate muscles Verified 09/30/22 07:02 locked up Sulfa (Sulfonamide Allergy Hives Verified 09/30/22 07:02 Antibiotics) rosuvastatin [From Crestor] AdvReac Severe Lymphadenopathy, Verified 09/30/22 07:02 edema, hyperthyroid atorvastatin [From Lipitor] AdvReac Intermediate Muscle Verified 09/30/22 07:02 aches/myalgias Family History Father CAD (coronary artery disease) Diabetes Dementia Heart disease Mother CAD (coronary artery disease) Hypertension Thyroid disorder Heart disease Sister Diabetes Type II Thyroid disorder Colon polyps Crohn's disease Sister Diabetes Type II Thyroid disorder Surgical History History of cardiac catheterization History of cholecystectomy History of colonoscopy History of laparoscopy History of left heart catheterization Hx of laparoscopy Stented coronary artery (04/19/18) Social History Smoking Status: Never smoker alcohol intake: current alcohol intake frequency: holidays/special occasions only substance use type: does not use caffeine: Yes Type: coffee Number of servings: 2 what type of physical activity do you participate in: walking frequency: 3-4 times per week Past Medical/Surgical History Planned Operation Planned Operative Procedure/s: COLONOSCOPY Previous Hospitalizations/Surgeries HX Hospitalizations: No HX of Surgeries: stent x1 cholecystectomy Any Problems With Anesthesia: No You/Your Family Experience Fever (Hyperthermia) With Anes: No Cholinesterase deficiency: No Cardiovascular Hx Chest Pain within Last 2 months: Yes Hx of Irregular Heartbeat and/or Afib: Yes Hx Heart Attack: No Hx Congestive Heart Failure: No Hx Rheumatic Fever: No Hx Hypertension: Yes (CONTROLLED ON MED) Hx Internal Defibrillator: No Hx Pacemaker: No Hx Cardiac Catheterization: Yes What facility was last heart cath performed: [facility] Date of last Heart Cath: [facility] Hx Cardiac Surgery/Stents/Etc.: Yes (Stent 3 years ago) Hx Stress Test: Yes Respiratory Chronic Cough: No Hx Chronic Obstructive Pulmonary Disease (COPD): No Hx Asthma: No Hx Emphysema: No Hx Sleep Apnea: No Hx Respiratory Tract Infection/Cold (presently): No Do You Snore Loudly (louder than talking or can be heard): No Do You Often Feel Tired/ Fatigued/ Sleepy Dring Daytime?: No Has Anyone Observed You Stop Breathing During Sleep?: No Result (for STOP score): Negative Hx Smoking: No Smoking Status: Never smoker Gastrointestinal Hx Gastroesophageal Reflux: No Hx Ulcer: No Special diet followed at home: No Hx Unplanned Weight Loss of 20#: No HX Unplanned Weight Gain of 20#: No Neurological Hx Seizures: No HX Syncope/Blackout Spells/Unconsciousness: Yes Does patient have nerve stimulator: No Blood Disorder Hx Deep Vein Thrombosis: No Hx High Cholesterol: No Hx Hepatitis: No Hx Anemia: Yes (on iron) Genitourinary Hx Renal Disease: No Hx Dialysis: No Musculoskeletal Hx Arthritis: Yes Endocrine Hx Diabetes: No Thyroid Disease: Yes (on meds) Psycho/Social Hx Substance Use: No Hx Alcohol Use: No Hx Anxiety: No Hx Depression: No Miscellaneous Hx Cancer: No Recent Exposure to Contagious Disease: No Allergies losartan Allergy (Intermediate, Verified 09/30/22 07:02) muscles locked up Sulfa (Sulfonamide Antibiotics) Allergy (Verified 09/30/22 07:02) Hives rosuvastatin [From Crestor] Adverse Reaction (Severe, Verified 09/30/22 07:02) Lymphadenopathy, edema, hyperthyroid atorvastatin [From Lipitor] Adverse Reaction (Intermediate, Verified 09/30/22 07:02) Muscle aches/myalgias Discharge Is Pt Admitted From a [facility], or a [facility]: No After D/C, Where Do you Plan to Go: Return Home Vital Signs Vital Signs Vital Signs: 09/30/22 07:02 09/30/22 07:02 Temperature 98.1 F Temperature Source Temporal Pulse Rate 64 Respiratory Rate 18 Respiratory Pattern Normal Blood Pressure 127/78 H Blood Pressure Mean 94 Blood Pressure Source Monitor Blood Pressure Position Semi-Fowlers Blood Pressure Location Right Arm Pulse Ox 96 Oxygen Delivery Method Room Air Weight Weight: 231 lb 7.766 oz Body Mass Index (BMI) 42.3 Physical Exam Const alert and oriented x3 HEENT normocephalic Eyes PERRL Resp normal respiratory effort and normal air movement Cardio regular rate and regular rhythm GI soft to palpation, non-tender and non-distended Extremity normal to inspection Assessment & Plan Assessment/Plan (1) Colon cancer screening: PLAN: I explained endoscopy in detail to the patient. I explained the risks including but not limited to stroke or heart attack with anesthesia, perforationof the GI tract, bleeding, infection. I explained that any of these could necessitate further emergency surgery. The patient understands and all questions were answered sufficiently. The patient wishes to proceed with procedure. Favian Zee MD Pager: [facility] [address] [place] [address], [address] [place] [address] Office: Surgery Risks - Colonoscopy Risks Include but are not Limited To: Risks include but are not limited to: Bleeding, perforation requiring further surgery, inability to complete colonoscopy requiring barium enema. 09/30/22721 <Electronically signed by Favian Zee MD> Cosigner Signature (if applicable): CC: Dr. Favian Zee MD; Dr. Camilla Castaneda MD~ Signed [facility] Work Phone: History and physical note Author Dr. Almaraz [facility] November 29, 2022 3:15pm Note Date/Time November 29, 2022 3:1 5pm [facility] Medical Records Department [address] [place] [address] H&P Exam - Hospitalist 11/29/22 1502 MR#: [id number] Acct: [id number] Name: SHAR DANIELS Rep #:[id number] : 1965 57 From: Vee Almaraz DO PCP: Dr. Camilla Castaneda MD Status:A DM IN Location: ICU CVICU20 2-1 HPI - General General Date of Admission: 11/29/22 Date of Service: 11/29/22 Chief Complaint: Bitemporal hemianopsia/left upper and lower extremity paresthesias/left facial droop HPI Narrative SHAR DANIELS, is a 57 F who presented to the emergency department at [facility] on 11/29/2022 with the complaint of bitemporal hemianopsia that started about 45 minutes prior to presentation. The patient states it is almost like she sees blood swirling in her visual field. Interestingly enough, on clinical exam she has no field visual cut. On exam she was also found to have some left upper and lower extremity sensory change and a mild left facial droop. Patient does not have any history of visual issues or stroke/TIA. She does have history of coronary disease, hyperlipidemia which she is intolerant ofstatins, and hypothyroidism. Stroke team was called prior to arrival and she was evaluated by the stroke neurologist at [facility]. Based on the findings tenecteplase was recommended and given in the emergency department. Atthe time of my evaluation her sensory issues had resolved, she still had a mild left facial droop and was still complaining of visual field issues however had anormal visual field exam. Vital signs on presentation demonstrated temperature of 97 degrees, heart rate 78, blood pressure initially was 199/106 but subsequent evaluations have been inthe 140s to 160s systolic and 80s to 100 diastolic, respiratory rate of 15 and oxygen saturation of 97% on room air. Her CBC was unremarkable. Coags were normal. Chemistry panel was unremarkable other than an elevated serum glucose of 203. She does not have a history of diabetes. Troponin was 4. EKG shows normal sinus rhythm with normal intervals and no ST-T wave changes concerning for acute ischemia. CT of the head was unremarkable for any acute findings. CTA of the head neck was unremarkable. She was given tenecteplase at 2:07 and request for admission to the intensive care unit was made. Initial NIH was 2 with one-point for sensory and one-point for left facial palsy. [facility] Medical History Abnormal echocardiogram (03/23/18) Anemia Anxiety Anxiety and depression Arthritis Arthritis of left temporomandibular joint Asthma Atherosclerosis of [place] coronary artery of [place] heart without angina pectoris Cardiology follow-up encounter Colon cancer screening Essential hypertension H/O bronchitis History of echocardiogram History of edema History of irregular heartbeat History of steroid therapy Hyperglycemia Hypertension Hypertension Hypothyroidism Left ventricular dysfunction Migraine headache Morbid obesity Nonischemic cardiomyopathy Nonrheumatic mitral (valve) insufficiency Nonrheumatic tricuspid (valve) insufficiency Normal stress echocardiogram Obesity Otitis media Post-menopausal Preventative health care Pure hypercholesterolemia Shortness of breath Shortness of breath on exertion Sinusitis Syncope Thyroid disease Thyroid disorder Vitiligo Wears glasses Home Medications ferrous sulfate 325 mg (65 mg iron) tablet 650 mg PO QODAY 03/11/21 [History Last Taken Unknown] albuterol sulfate 90 mcg/actuation aerosol inhaler 1 - 2 puff inhalation Q6H PRNSHORTNESS OF BREATH 11/29/22 [History Last Taken Unknown] aspirin 81 mg tablet,delayed release (Adult Aspirin Regimen) 81 mg PO DAILY HEART HEALTH 11/29/22 [History Last Taken 11/28/22] escitalopram oxalate 10 mg tablet 10 mg PO Q3D DEPRESSION 11/29/22 [History Last Taken 11/27/22] levothyroxine 150 mcg tablet 150 mcg PO DAILY THYROID 11/29/22 [History Last Taken 11/28/22] metoprolol tartrate 25 mg tablet 25 mg PO DAILY BLOOD PRESSURE 11/29/22 [History Last Taken 11/28/22] Allergy/AdvReac Type Severity Reaction Status Date / Time losartan Allergy Intermediate muscles Verified 11/29/22 13:01 locked up Sulfa (Sulfonamide Allergy Hives Verified 11/29/22 13:01 Antibiotics) rosuvastatin [From Crestor] AdvReac Severe Lymphadenopathy, Verified 11/29/22 13:01 edema, hyperthyroid atorvastatin [From Lipitor] AdvReac Intermediate Muscle Verified 11/29/22 13:01 aches/myalgias Family History Father CAD (coronary artery disease) Diabetes Dementia Heart disease Mother CAD (coronary artery disease) Hypertension Thyroid disorder Heart disease Sister Diabetes Type II Thyroid disorder Colon polyps Crohn's disease Sister Diabetes Type II Thyroid disorder Surgical History History of cardiac catheterization History of cholecystectomy History of colonoscopy History of laparoscopy History of left heart catheterization Hx of laparoscopy Stented coronary artery (04/19/18) Social History Smoking Status: Never smoker alcohol intake: current alcohol intake frequency: holidays/special occasions only substance use type: does not use caffeine: Yes Type: coffee Number of servings: 2 what type of physical activity do you participate in: none seatbelt use: always do you feel safe at home: Yes additional social history: - Sonny LANDEROS Constitutional Constitutional: Denies anorexia, change in weight, chills, fatigue, fever(s), malaise, night sweats, weakness or other Eyes Eyes: Reports change in vision bilateral and loss of vision; Denies blurry vision, change in eye color, discharge from eye(s), double vision, erythema, eyepain or other ENT HEENT: Denies abnormal hearing, dysphagia, ear pain, epistaxis, headache(s), hearing loss, nasal congestion, nasal discharge, post nasal drip, sinus pressure, sore throat or other Cardiovascular Cardiovascular: Denies chest pain, claudication, dyspnea on exertion, edema, lightheadedness, orthopnea, palpitations, paroxysmal nocturnal dyspnea, rapid heart rate, syncope or other Respiratory/Chest Respiratory/Chest: Denies cough, dyspnea, excessive phlegm production, hemoptysis, productive cough, shortness of breath at rest, shortness of breath with exertion, wheezing or other Gastrointestinal Gastrointestinal: Denies abdominal pain, coffee ground emesis, constipation, diarrhea, dyspepsia, hematemesis, hematochezia, loose stools, melena, nausea, vomiting or other Genitourinary Genitourinary: Denies burning urination, difficulty urinating, dysuria, hematuria, nocturia, urinary frequency, urinary hesitancy, urinary incontinence,urinary urgency or other Musculoskeletal Musculoskeletal: Denies arthralgias, back pain, joint pain, joint stiffness, joint swelling, myalgias, neck pain or other Neurologic Neurologic: Reports paresthesias and other Psychiatric Psychiatric: Reports anxiety; Denies depression, homicidal ideation, suicidal ideation or other Endocrine Endocrinology: Denies change in body appearance, cold intolerance, excessive sweating, heat intolerance, polydipsia, polyuria or other Hematologic/Lymphatic Hematologic/Lymphatic: Denies anemia, easy bleeding, easy bruising, lymphadenopathy or other Allergic/Immunologic Allergic/Immunologic: Denies rhinitis, hives, eczemia, asthma or other Vital Signs Vital Signs Vital Signs: 11/29/22 13:00 11/29/22 13:27 11/29/22 14:07 Temperature 97.0 F L Temperature Source Temporal Pulse Rate 78 Respiratory Rate 15 Blood Pressure 199/106 H 146/106 H Blood Pressure Mean 137 Blood Pressure Source Blood Pressure Position Blood Pressure Location Pulse Ox 97 Oxygen Delivery Method Room Air Room Air 11/29/22 14:07 11/29/22 14:22 11/29/22 14:05 Temperature 97.7 F L 97.8 F Temperature Source Core Core Pulse Rate 87 79 80 Respiratory Rate 22 H 12 13 Blood Pressure 167/86 H 167/84 H 146/106 H Blood Pressure Mean 113 111 119 Blood Pressure Source Monitor Monitor Blood Pressure Position Semi-Fowlers Semi-Fowlers Blood Pressure Location Left Arm Left Arm Pulse Ox 97 96 97 Oxygen Delivery Method Room Air Room Air Room Air Weight Weight: 109.3 kg Body Mass Index (BMI) 44.0 Physical Exam Const alert, oriented x3, no apparent distress, healthy appearing and well nourished Constitutional Narrative: Middle-aged white female, morbidly obese, sitting in bed, appears comfortable, nontoxic, nursing at bedside General Appearance: cooperative HEENT normocephalic, head/scalp atraumatic, hearing grossly normal bilaterally and moist oral mucous membranes HEENT Narrative: Mallampati 3, no thrush, dentition is good Eyes PERRL, EOMs intact bilaterally and conjunctivae normal Eyes Narrative: No scleral icterus, no visual field cuts on exam Neck no lymphadenopathy, supple, no JVD and no carotid bruits Neck Narrative: Trachea midline Resp normal respiratory effort, no retractions, no use of accessory muscles and clearto auscultation bilaterally Auscultation: Negative for rales, rhonchi or wheezes Cardio regular rate, regular rhythm, S1 normal heart sound, S2 normal heart sound, no murmurs, no rub, no gallops and no clicks GI normal to inspection, nondistended, normoactive bowel sounds, soft to palpation and non-tender Extremity no clubbing, cyanosis or edema Extremity Narrative: 2+ pedal pulses Skin no rashes or lesions noted, no wounds, skin turgor normal, no jaundice, no petechiae and no mottling Neuro oriented x3, No CN's II-XII intact bilaterally, moves all extremities and no focal motor deficits Neuro Narrative: Mild left facial droop but all other cranial nerves unremarkable, visual adams intact, no sensory deficits Sensorium / Orientation: awake, alert, oriented to person, oriented to place andoriented to time Coordination / Balance: [id number] test normal and woim-[id number] test normal Speech: speech normal Psych Mood & Affect: anxious Results Lab / Micro Data Result Diagrams: 11/29/22 13:05 11/29/22 13:05 Labs: Laboratory Results - last 24 hr 11/29/22 13:05: WBC 8.2, RBC 4.60, Hgb 13.7, Hct 42.7, MCV 92.8, MCH 29.8, MCHC 32.1, RDW Std Deviation 42.5, RDW Coeff of Evan 12.5, Plt Count 304, MPV 10.5, Immature Gran % (Auto) 1.100 H, Neut % (Auto) 53.9, Lymph % (Auto) 31.4, [place] % (Auto) 9.0, Eos % (Auto) 4.0, Baso % (Auto) 0.6, Absolute Neuts (auto) 4.4, Absolute Lymphs (auto) 2.58, Nucleated RBC % 0 11/29/22 13:05: PT 12.9, INR 1.0, APTT 27.0 11/29/22 13:05: Sodium 137, Potassium 3.6, Chloride 105, Carbon Dioxide 27.0, Anion Gap 5, BUN 14, Creatinine 0.81, Estim Creat Clear Calc 61.34, Est GFR (MDRD) Af Amer 94, Est GFR (MDRD) Non-Af 78, BUN/Creatinine Ratio 17.3, Glucose 203 H, Calcium 9.5, Troponin I High Sens 4 11/29/22 13:17: POC Glucose 239 H Radiology Impression Brain CT 11/29/22 13:03 IMPRESSION: Normal unenhanced CT scan of the brain. N.B. : The above Results were Read Back by Lon Eric MD to Dr Betzy DO, and understanding confirmed on 11/29/2022 13:35:18 (ET). Electronically Signed: Lon Eric MD at 13:36 EDT , ADDENDUM: 11/29/22 1343 IMPRESSION: Normal unenhanced CT scan of the brain. N.B. : The above Results were Read Back by Lon Eric MD to Dr Betzy DO, and understanding confirmed on 11/29/2022 13:35:18 (ET). Electronically Signed: Lon Eric MD at 13:36 EDT , Head/Neck CTA 11/29/22 13:15 IMPRESSION: Normal CTA Head and neck with contrast. N.B. : The above Results were Read Back by Lon Eric MD to Brendan Bo and understanding confirmed on 11/29/2022 13:37:10 (ET). Electronically Signed: Lon Eric MD at 13:38 EDT , ADDENDUM: 11/29/22 1345 IMPRESSION: Normal CTA Head and neck with contrast. N.B. : The above Results were Read Back by Lon Eric MD to Brendan Bo and understanding confirmed on 11/29/2022 13:37:10 (ET). Electronically Signed: Lon Eric MD at 13:38 EDT , Assessment & Plan Assessment/Plan (1) Facial droop: (2) Vision changes: (3) Paresthesias: (4) Hyperglycemia: PLAN: Plan Left-sided facial droop/visual changes/left-sided paresthesias -Concerning for acute stroke versus TIA -Stroke consult made in the emergency department and tenecteplase recommended and given at 2:07 PM -We will check follow-up MRI tomorrow afternoon 24 hours after tenecteplase given -Check echocardiogram -Bedrest until 24 hours post tenecteplase -Hold aspirin/subcu DVT prophylaxis until follow-up MRI performed to ensure no hemorrhagic transformation -Unable to dose statin as patient has statin intolerances -Check lipids -Check hemoglobin A1c -PT/OT consultation -SOC consultation after imaging done tomorrow Bitemporal hemianopsia -Patient reports visual field cut however none is present on exam -If persistent would recommend outpatient ophthalmology versus inpatient ophthalmology consultation -Really the only lesion that could cause this would be an optic chiasm lesion and there is no abnormality noted on CT -MRI pending for tomorrow Hyperglycemia -Patient without history of diabetes -Check hemoglobin A1c Hypothyroidism -Continue home Synthroid -Check TSH History of peripartum/ cardiomyopathy -Resolved CAD/HTN/HPL -Patient follows with Dr. Chino previously -status post LAD PCI/BLANCO (2018 with a 3.0x28 Promus drug-eluting stent) -Patient not on statin secondary to statin intolerance -Continue home metoprolol -As needed occasion avail bowel for the elevated systolic blood pressures however while for some permissive hypertension -May need up titration or new medication for antihypertensive added depending onblood pressure Depression -Continue home escitalopram Asthma -Continue as needed albuterol Morbid obesity -BMI 44.1 -Recommend weight loss -Complicates treatment, prognosis, outcomes -Patient should be evaluated for sleep apnea as an outpatient Vitiligo -Chronic stable DVT prophylaxis -SCDs -No chemoprophylaxis for 24 hours secondary to tenecteplase dosing CODE STATUS Full code Charges/Coding Visit Charges Inpatient E&M: 72116 Init Hosp L3 11/29/22 1515 <Electronically signed by Vee Almaraz DO> Cosigner Signature (if applicable): CC: Dr. Camilla Castaneda MD; Dr. Vee Almaraz DO~ Signed [facility] Work Phone: Hospital Discharge instructions Additional Instructions You have a small kidney stone on the left side in the ureter which is about to pass into the bladder. Take the medication as directed for pain and follow-up with the urologist. Return with fever, intractable pain, inability to take your medications, new or worsening symptoms.[facility] Work Phone: Hospital Discharge instructions Additional Instructions Please continue to drink fluids at home and follow-up with your surgeon as scheduled[facility] Work Phone: Reason for referral (narrative)* Outpatient Procedure (Routine) - Pending Review Specialty Diagnoses / Procedures Referred By Marycruz sal Referred To Contact [facility] Diagnoses Body mass index 40.0-44.9, adult (HCC) Procedures EGD DIAGNOSTIC ESOPHAGOGASTRODUODENOSC OPY TRANSORAL DIAGNOSTIC Tree Lynch MD [address] [place] [address] [facility] [address] [place] [address] Referral ID Status Reason Start Date Expiration Date Visits Requested Visits Authorized [id number] Pending Review Auto-Generat ed Referral 01/17/2023 01/18/2024 1 1 [facility] [place] for referral (narrative)* Diagnostic Procedure Only (Routine) - Pending Review Specialty Diagnoses / Procedures Referred By Marycruz sal Referred To Contact XR IMAGING Diagnoses S/P laparoscopic sleeve gastrectomy Procedures XR UPPER GI SINGLE CONTRAST RADIOLOGIC EXAM UPR GI TRC SINGLE CONTRAST STUDY Micki Jacobs APRN.HEALTH MANAGEMENT CONSULTANT [address] [place] [address] Xr Imaging [facility] Referral ID Status Reason Start Date Expiration Date Visits Requested Visits Authorized [id number] Pending Review Auto-Generat ed Referral 09/08/2023 10/07/2024 1 1 [facility] [place] for referral (narrative)No reason for referral information availableWOhio[facility] Work Phone: Summary Purpose Family History No Family History Records Found Relationship Condition Age at Onset Recorded Date/T aris father Coronary artery disease Unknown Diabetes mellitus Unknown Dementia Unknown Cardiac disease Unknown mother Coronary artery disease Unknown Hypertension Unknown Disorder of thyroid Unknown sister Diabetes mellitus Unknown Relationship Condition Age at Onset Recorded Date/T aris father Coronary artery disease Unknown Diabetes mellitus Unknown Dementia Unknown Cardiac disease Unknown mother Coronary artery disease Unknown Hypertension Unknown Disorder of thyroid Unknown sister Diabetes mellitus Unknown Polyp of colon Unknown Crohn's disease Unknown Advance Directives No Advanced Directives Records Found Advance Directive Response Recorded Date/ Time Advance Directives No July 5:17pm Living Will No August 03, 021 5:17pm Power of [employer] No August 03, 2021 5:17pm Advance Directive Response Recorded Date/ Time Advance Directives No July 4:17pm Living Will No August 17 8:48am Power of [employer] No August 17, 2022 8:48am Advance Directive Response Recorded Date/ Time Advance Directives No July 4:17pm Living Will No September 12 2:40pm Power of [employer] No September 12, 2022 2:40pm Advance Directive Response Recorded Date/ Time Advance Directives No July 5:17pm Living Will No November 29, 2022 3:09pm Power of [employer] No November 29 3:09pm Advance Directive Response Recorded Date/ Time Advance Directives No July 5:17pm Living Will No November 29, 2022 4:04pm Power of [employer] No November 29 4:04pm Advance Directive Response Recorded Date/ Time Advance Directives No July 4:17pm Living Will No June 27, 2 023 5:30pm Power of [employer] No June 27, 2023 5:30pm Advance Directive Response Recorded Date/ Time Advance Directives No July 5:17pm Living Will No June 27, 2 023 6:30pm Power of [employer] No June 27, 2023 6:30pm Advance Directive Response Recorded Date/ Time Advance Directives No July 5:17pm Advance Directive Response Recorded Date/ Time Living Will No June 27, 2 023 6:30pm Do you have a Healthcare Power of [employer] Electrician? No June 27, 2023 6:30pm Advance Directives No July 5:17pm History of Present Illness * Artis, Alvaro Hernandez - 05/19/2020 6:09 PM EDT Note: The following is an abstracted note of the either a previous or a new History of Present Illness. This is in prep for an up-coming appointment. This is not a wbor-qk-wgwe encounter. Previous history as follows: Thyroid: 1984: Around this time she was told underactive thyroid and started on Synthroid. 2014: Stated therapeutic lifestyle changes with weight loss achived. 08/31/2015: TSH 12.41 (0.36-3.74 mcIU/mL), free T4 0.88 (0.76-1.46 ng/dL), on levothyroxine 175, possibly increased to 200. This was eventually lowered back to 175 mcg daily. Unclear dates. 10/29/2015: Ultrasound of thyroid gland, at outside hospital: Markedly atrophic gland. Right lobe: 16 mm in length, Left lobe 18 mm in length, with heterogeneous architecture. There is a tiny cystic structure present in the inferior pole of the left lobe 3.4 mm. 11/11/2015: TSH 0.18 (0.36-3.74 mcIU/mL), free T4 1.53 (0.76-1.46 ng/dL), Total WBC normal. On levothyroxine 175 mcg daily. Her dose was decreased to levothyroxine 137 mcg daily. 11/11/2015: Thyroid peroxidase antibodies 4 (<9 intUnt/mL), Thyroglobulin antibodies 2 (<1 IntUnt/mL), 11/11/2015: Thyroid Stimulating Immunoglobulin (TSI) 30 (<140 %baseline), 11/2015: Initial consultation here. TSH 0.228 (0.358-3.740 uIU/mL), free T4 1.33 (0.76-1.46 ng/dL), free T3 1.8 (2.2-4.0 pg/ml), on levothyroxine 137 mcg daily (for less than a month). I changed her to a T4:T3 regimen, with levothyroxine 137 mcg daily with Liothyronine 5 mcg twice daily. 12/2015: AM cortisol 8.1 ug/dL. 12/07/2015: Patient reported GI issues with her new regimen. Unclear causality, but I had her stop the Liothyronine. She later reported she never did this. 03/2016: TSH 0.457 (0.358-3.740 uIU/mL), free T4 1.19 (0.76-1.46 ng/dL), free T3 2.0 (2.2-4.0 pg/mL), On levothyroxine 137 mcg daily with liothyronine 5 mcg twice daily. 06/2016: TSH 0.180 (0.358-3.740 uIU/mL), free T4 1.23 (0.76-1.46 ng/dL), free T3 2.8 (2.2-4.0 pg/mL), on levothyroxine 137 mcg daily with liothyronine 5 mcg twice daily. I lowered her levothyroxine to 125 mcg daily, and kept the liothyronine at 5 mcg twice daily. 01/2017: TSH 2.180 (0.358-3.740 uIU/mL), free T4 1.08 (0.76-1.46 ng/dL), free T3 2.1 (2.2-4.0 pg/mL), on levothyroxine 125 mcg daily and liothyronine 5 mcg twice daily. I changed the liothyronine to 10 mcg in AM and 5 mcg in PM. 07/2017: TSH 3.740 (0.358-3.740 uIU/mL), free T4 0.98 (0.76-1.46 ng/dL), free T3 3.0 (2.2-4.0 pg/mL), on levothyroxine 125 mcg daily and liothyronine 10 mcg in AM and 5 mcg in PM but missing PM dose often. I increased her levothyroxine to 137 mcg daily and stressed compliance with her PM liothyronine. 05/2018: TSH 0.044 (0.358-3.740 uIU/mL), free T4 1.34 (0.76-1.46 ng/dL), free T3 3.4 (2.2-4.0 pg/mL), on levothyroxine 137 mcg daily and liothyronine 10 mcg in am and 5 mcg in pm. I lowered her levothyroxine to 125 mcg daily. The liothyronine was kept the same. 06/2019: TSH 0.665 (0.358 - 3.740 uIU/mL), free T4 1.05 (0.76-1.46 ng/dL), free T3 2.5 (2.3-4.1 pg/mL), on levothyroxine 125 mcg daily and liothyronine 10 mcg in AM and 5 mcg in PM. Other issue: Iron deficiency: 12/2015: Ferritin 6.30 (5.00-148.00 ng/mL), on no iron. I started Ferrous Gluconate 325 mg daily, separate from her thyroid meds. She could not find ferrous gluconate, and tried ferrous sulfate, and tolerated well without any allergic reactions. 03/2016: Ferritin 23.60 (5.00-148.00 ng/mL), on ferrous sulfate 325 mg daily. Tolerating the ferroussulfate without any allergic reactions. 06/2016: Ferritin 16.70 (5.00-148.00 ng/mL), on ferrous sulfate 325 mg daily. I asked her to attempt to get two pills per day, and use a vitamin C at same time to improve absorption. 01/2017: Ferritin 47.60 (5.00-148.00 ng/mL), on ferrous sulfate 325 mg x two pills daily. Improvement. I had her change to about 10 pills per week. 07/2017: Ferritin 39.40 (8.00-252.00 ng/mL), on iron 10 pills per week. I re- increased her to 2 perday. 05/2018: Ferritin 70.00 (8.00-252.00 ng/mL), on ferrous sulfate 325 mg x one pill day one, and two pills daily two. 06/2019: ferritin 91.50 (8-252 ng/mL), No previous allergic reactions to the sulfate form. Still on this ferrous sulfate, which is confirmed as 325 mg. Tolerating. Taking two pills, every other day. Takes this around 9 pm. Other significant lab history: 01/2017: random cortisol 15.5 ug/dL, done at 11:41 AM. 01/2017: Celiac panel: Gliadin IgA Ab 7 (<20 units), Gliadin IgG Ab 2 (<20 Units), Reticulin Ab, IgA <1:5 (<1:5 ), Tissue Transgltaminase IgG 2 (<20 units), Transglutaminase IgA 4 (<20 units). documented in this encounter* Alvaro Wisdom - 05/21/2020 3:07 PM EDT . [facility] [address] [facility], [address] Endocrinology - [address], [address] [place] [address] Patient's name: Shar Daniels Patient's date of : 1965 Date of encounter: 05/21/2020 History of present illness: Shar Daniels is a 54 year old female who presents for follow up of an endocrinology issue. Thyroid: 1984: Around this time she was told underactive thyroid and started on Synthroid. 2014: Stated therapeutic lifestyle changes with weight loss achived. 08/31/2015: TSH 12.41 (0.36-3.74 mcIU/mL), free T4 0.88 (0.76-1.46 ng/dL), on levothyroxine 175, possibly increased to 200. This was eventually lowered back to 175 mcg daily. Unclear dates. 10/29/2015: Ultrasound of thyroid gland, at outside hospital: Markedly atrophic gland. Right lobe: 16 mm in length, Left lobe 18 mm in length, with heterogeneous architecture. There is a tiny cystic structure present in the inferior pole of the left lobe 3.4 mm. 11/11/2015: TSH 0.18 (0.36-3.74 mcIU/mL), free T4 1.53 (0.76-1.46 ng/dL), Total WBC normal. On levothyroxine 175 mcg daily. Her dose was decreased to levothyroxine 137 mcg daily. 11/11/2015: Thyroid peroxidase antibodies 4 (<9 intUnt/mL), Thyroglobulin antibodies 2 (<1 IntUnt/mL), 11/11/2015: Thyroid Stimulating Immunoglobulin (TSI) 30 (<140 %baseline), 11/2015: Initial consultation here. TSH 0.228 (0.358-3.740 uIU/mL), free T4 1.33 (0.76-1.46 ng/dL), free T3 1.8 (2.2-4.0 pg/ml), on levothyroxine 137 mcg daily (for less than a month). I changed her to a T4:T3 regimen, with levothyroxine 137 mcg daily with Liothyronine 5 mcg twice daily. 12/2015: AM cortisol 8.1 ug/dL. 12/07/2015: Patient reported GI issues with her new regimen. Unclear causality, but I had her stop the Liothyronine. She later reported she never did this. 03/2016: TSH 0.457 (0.358-3.740 uIU/mL), free T4 1.19 (0.76-1.46 ng/dL), free T3 2.0 (2.2-4.0 pg/mL), On levothyroxine 137 mcg daily with liothyronine 5 mcg twice daily. 06/2016: TSH 0.180 (0.358-3.740 uIU/mL), free T4 1.23 (0.76-1.46 ng/dL), free T3 2.8 (2.2-4.0 pg/mL), on levothyroxine 137 mcg daily with liothyronine 5 mcg twice daily. I lowered her levothyroxine to 125 mcg daily, and kept the liothyronine at 5 mcg twice daily. 01/2017: TSH 2.180 (0.358-3.740 uIU/mL), free T4 1.08 (0.76-1.46 ng/dL), free T3 2.1 (2.2-4.0 pg/mL), on levothyroxine 125 mcg daily and liothyronine 5 mcg twice daily. I changed the liothyronine to 10 mcg in AM and 5 mcg in PM. 07/2017: TSH 3.740 (0.358-3.740 uIU/mL), free T4 0.98 (0.76-1.46 ng/dL), free T3 3.0 (2.2-4.0 pg/mL), on levothyroxine 125 mcg daily and liothyronine 10 mcg in AM and 5 mcg in PM but missing PM dose often. I increased her levothyroxine to 137 mcg daily and stressed compliance with her PM liothyronine. 05/2018: TSH 0.044 (0.358-3.740 uIU/mL), free T4 1.34 (0.76-1.46 ng/dL), free T3 3.4 (2.2-4.0 pg/mL), on levothyroxine 137 mcg daily and liothyronine 10 mcg in am and 5 mcg in pm. I lowered her levothyroxine to 125 mcg daily. The liothyronine was kept the same. 06/2019: TSH 0.665 (0.358 - 3.740 uIU/mL), free T4 1.05 (0.76-1.46 ng/dL), free T3 2.5 (2.3-4.1 pg/mL), on levothyroxine 125 mcg daily and liothyronine 10 mcg in AM and 5 mcg in PM. Interval history: The patient now returns for re-evaluation and follow-up. The above history was re-confirmed. When asked how she feels overall, she responded ok but still with fatigue. She remains on a T4:T3 regimen with levothyroxine, dosed as 125 micrograms daily, and liothyronine,dose as 10 micrograms dosed in the AM, and 5 micrograms dosed in the PM. She takes the levothyroxine 9 AM with her liothyronine. Coffee is ingested around 1+ hour(s) after the levothyroxine. Other meds around the time of the levothyroxine: liothyronine She takes the first liothyronine around 9 am when she wakes. She takes the afternoon dose of liothyronine 6 pm. Iron is around 6-9 pm. No overt dysphagia of solids, liquids or pills. No overt globus sensation in neck. No new or existing hoarseness. No anterior neck compression / feeling of external pressure. Denies clearing of throat. Denies cough. Biotin use: Not using any [id number] Biotin supplements, or multi-vitamins with large doses of biotin such as Hair/Skin/Nail formulations. Not using any B- complex vitamin preparations. Not using any leave-in hair products with biotin. Other issue: Iron deficiency: 12/2015: Ferritin 6.30 (5.00-148.00 ng/mL), on no iron. I started Ferrous Gluconate 325 mg daily, separate from her thyroid meds. She could not find ferrous gluconate, and tried ferrous sulfate, and tolerated well without any allergic reactions. 03/2016: Ferritin 23.60 (5.00-148.00 ng/mL), on ferrous sulfate 325 mg daily. Tolerating the ferroussulfate without any allergic reactions. 06/2016: Ferritin 16.70 (5.00-148.00 ng/mL), on ferrous sulfate 325 mg daily. I asked her to attempt to get two pills per day, and use a vitamin C at same time to improve absorption. 01/2017: Ferritin 47.60 (5.00-148.00 ng/mL), on ferrous sulfate 325 mg x two pills daily. Improvement. I had her change to about 10 pills per week. 07/2017: Ferritin 39.40 (8.00-252.00 ng/mL), on iron 10 pills per week. I re- increased her to 2 perday. 05/2018: Ferritin 70.00 (8.00-252.00 ng/mL), on ferrous sulfate 325 mg x one pill day one, and two pills daily two. 06/2019: ferritin 91.50 (8-252 ng/mL), Interval history: No previous allergic reactions to the sulfate form. Still on this ferrous sulfate, which is confirmed as 325 mg. Tolerating. Taking two pills, every other day. Takes this around 6 - 9 pm. Other significant lab history: 01/2017: random cortisol 15.5 ug/dL, done at 11:41 AM. 01/2017: Celiac panel: Gliadin IgA Ab 7 (<20 units), Gliadin IgG Ab 2 (<20 Units), Reticulin Ab, IgA <1:5 (<1:5 ), Tissue Transgltaminase IgG 2 (<20 units), Transglutaminase IgA 4 (<20 units). Allergies, medications, medical and surgical history, family history and social history, and problem list reviewed. Preferred pharmacy for the medications I prescribe (or may prescribe) is: [facility] [address] [place] [id number] [address] [facility] [phone] Review of Systems Constitutional: Positive for malaise/fatigue. Negative for chills, diaphoresis, fever and weight loss. HENT: Negative for congestion and sore throat. Eyes: Negative for double vision and pain. Respiratory: Negative for cough, shortness of breath and wheezing. Cardiovascular: Negative for chest pain, palpitations and leg swelling. Gastrointestinal: Negative for abdominal pain, blood in stool, constipation, diarrhea, heartburn, nausea and vomiting. Genitourinary: Negative for flank pain, frequency, hematuria and urgency. Musculoskeletal: Positive for joint pain (Knees). Negative for back pain and myalgias. Skin: Negative for itching and rash. Neurological: Negative for dizziness, tingling, tremors, sensory change, weakness and headaches. Endo/Heme/Allergies: Negative for polydipsia. Does not bruise/bleed easily. Psychiatric/Behavioral: Positive for depression. Negative for memory loss and suicidal ideas. The patient is not nervous/anxious and does not have insomnia. 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 Iron deficiency Migraine headache Obesity Vitiligo PAST SURGICAL HISTORY Procedure Laterality Date CHOLECYSTECTOMY HX PAST SURGICAL HISTORY OF Laproscopy: for adhesions FAMILY HISTORY Problem Relation Age of Onset Alcohol/Drug Father Diabetes Father Heart Father Heart Mother Thyroid Mother Hypothyroidism other (Vitiligo) Mother Thyroid Sister Hypothyroidism other (Vitiligo) Sister Thyroid Sister Hypothyroidism Social History Tobacco Use Smoking status: Never Smoker Smokeless tobacco: Never Used Substance Use Topics Alcohol use: No Drug use: No Current Outpatient Medications Medication Sig Dispense Refill metoprolol tartrate, short acting, (LOPRESSOR) 25 mg tablet Take 25 mg by mouth twice daily. 1/2 tablet in the morning and 1/2 tablet in the evening. 11 levothyroxine (SYNTHROID) 125 mcg tablet Take 1 tablet by mouth once daily. 90 tablet 3 liothyronine (CYTOMEL) 5 mcg tablet Two pills (10 mcg) by mouth in AM, one pill (5 mcg) by mouth inPM 270 tablet 3 escitalopram oxalate (LEXAPRO) 20 mg tablet Take 20 mg by mouth once daily. aspirin, enteric coated (ASPIRIN, ENTERIC COATED) 81 mg EC tablet Take 81 mg by mouth once daily. clopidogrel (PLAVIX) 75 mg tablet Take 75 mg by mouth once daily. Cholecalciferol, Vitamin D3, (D3-2000) 2,000 unit cap Take by mouth. ferrous sulfate 325 mg (65 mg iron) tablet Take 650 mg by mouth every 48 hours. No current facility-administered medications for this visit. BP 135/78 Pulse 72 Ht 5' 2 (1.58m) Wt 230 lb 3.2 oz (104.4kg) BMI 42.09 kg/(m^2). Last 5 Encounter Wt Readings: Date: Wt: 05/21/2020 104.4 kg (230 lb 3.2 oz) 06/11/2019 111.6 kg (246 lb) 05/24/2018 99.5 kg (219 lb 6.4 oz) 07/26/2017 97.5 kg (215 lb) 01/25/2017 96.6 kg (213 lb) Physical Exam Constitutional: She is oriented to person, place, and time and well-developed, well-nourished, and in no distress. She appears not jaundiced. Non-toxic appearance. She does not have a sickly appearance. HENT: Head: Normocephalic and atraumatic. Eyes: EOM are normal. No scleral icterus. Neck: No thyroid mass and no thyromegaly present. No palpable thyroid nodules or masses. Non-tender anterior neck. Estimated size of thyroid gland 20grams. Cardiovascular: Normal rate and regular rhythm. No murmur heard. Pulmonary/Chest: Effort normal and breath sounds normal. No respiratory distress. She has no wheezes. She has no rhonchi. She has no rales. Abdominal: Soft. There is no hepatomegaly. There is no abdominal tenderness. There is no guarding and no CVA tenderness. Musculoskeletal: General: No edema. Lymphadenopathy: Head (right side): No submandibular, no tonsillar and no preauricular adenopathy present. Head (left side): No submandibular, no tonsillar and no preauricular adenopathy present. She has no cervical adenopathy. Neurological: She is alert and oriented to person, place, and time. She has intact cranial nerves. She displays no tremor. Skin: Skin is warm. She is not diaphoretic. Psychiatric: Mood, affect and judgment normal. Vitals reviewed. Assessment and Plans: 1. 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 Euthyroid exam The coffee may or may not be too close. Sometimes drinks coffee first. Iron usually later. I will check her thyroid hormone levels. Once those are reviewed, then I will adjust the dose(s) asneeded. Will send an electronic prescription to the local pharmacy, in 30 day supplies, once data reviewed. Preferred pharmacy for the medications I prescribe (or may prescribe) is: [facility] [address] [place] [id number] [address] [facility] [phone] - TSH BLD; Future - T4 FREE/FREE THYROX; Future - T3 FREE BLD; Future 2. Alban's thyroiditis Treat #1 3. Iron deficiency On two pills, every other day - FERRITIN BLD; Future - IRON + TIBC; Future Alvaro Wisdom MD documented in this encounter* Artis Alvaro Hernandez - 11/17/2020 8:24 AM EDT Note: The following is an abstracted note of the either a previous or a new History of Present Illness. This is in prep for an up-coming appointment or a summary update of a disease state. This is not a [id number] encounter. Previous history as follows: Thyroid: 1984: Around this time she was told underactive thyroid and started on Synthroid. 2014: Stated therapeutic lifestyle changes with weight loss achived. 08/31/2015: TSH 12.41 (0.36-3.74 mcIU/mL), free T4 0.88 (0.76-1.46 ng/dL), on levothyroxine 175, possibly increased to 200. This was eventually lowered back to 175 mcg daily. Unclear dates. 10/29/2015: Ultrasound of thyroid gland, at outside hospital: Markedly atrophic gland. Right lobe: 16 mm in length, Left lobe 18 mm in length, with heterogeneous architecture. There is a tiny cystic structure present in the inferior pole of the left lobe 3.4 mm. 11/11/2015: TSH 0.18 (0.36-3.74 mcIU/mL), free T4 1.53 (0.76-1.46 ng/dL), Total WBC normal. On levothyroxine 175 mcg daily. Her dose was decreased to levothyroxine 137 mcg daily. 11/11/2015: Thyroid peroxidase antibodies 4 (<9 intUnt/mL), Thyroglobulin antibodies 2 (<1 IntUnt/mL), 11/11/2015: Thyroid Stimulating Immunoglobulin (TSI) 30 (<140 %baseline), 11/2015: Initial consultation here. TSH 0.228 (0.358-3.740 uIU/mL), free T4 1.33 (0.76-1.46 ng/dL), free T3 1.8 (2.2-4.0 pg/ml), on levothyroxine 137 mcg daily (for less than a month). I changed her to a T4:T3 regimen, with levothyroxine 137 mcg daily with Liothyronine 5 mcg twice daily. 12/2015: AM cortisol 8.1 ug/dL. 12/07/2015: Patient reported GI issues with her new regimen. Unclear causality, but I had her stop the Liothyronine. She later reported she never did this. 03/2016: TSH 0.457 (0.358-3.740 uIU/mL), free T4 1.19 (0.76-1.46 ng/dL), free T3 2.0 (2.2-4.0 pg/mL), On levothyroxine 137 mcg daily with liothyronine 5 mcg twice daily. 06/2016: TSH 0.180 (0.358-3.740 uIU/mL), free T4 1.23 (0.76-1.46 ng/dL), free T3 2.8 (2.2-4.0 pg/mL), on levothyroxine 137 mcg daily with liothyronine 5 mcg twice daily. I lowered her levothyroxine to 125 mcg daily, and kept the liothyronine at 5 mcg twice daily. 01/2017: TSH 2.180 (0.358-3.740 uIU/mL), free T4 1.08 (0.76-1.46 ng/dL), free T3 2.1 (2.2-4.0 pg/mL), on levothyroxine 125 mcg daily and liothyronine 5 mcg twice daily. I changed the liothyronine to 10 mcg in AM and 5 mcg in PM. 07/2017: TSH 3.740 (0.358-3.740 uIU/mL), free T4 0.98 (0.76-1.46 ng/dL), free T3 3.0 (2.2-4.0 pg/mL), on levothyroxine 125 mcg daily and liothyronine 10 mcg in AM and 5 mcg in PM but missing PM dose often. I increased her levothyroxine to 137 mcg daily and stressed compliance with her PM liothyronine. 05/2018: TSH 0.044 (0.358-3.740 uIU/mL), free T4 1.34 (0.76-1.46 ng/dL), free T3 3.4 (2.2-4.0 pg/mL), on levothyroxine 137 mcg daily and liothyronine 10 mcg in am and 5 mcg in pm. I lowered her levothyroxine to 125 mcg daily. The liothyronine was kept the same. 06/2019: TSH 0.665 (0.358 - 3.740 uIU/mL), free T4 1.05 (0.76-1.46 ng/dL), free T3 2.5 (2.3-4.1 pg/mL), on levothyroxine 125 mcg daily and liothyronine 10 mcg in AM and 5 mcg in PM. 05/2020: TSH 1.170 (0.270-4.200 uIU/mL), free T4 1.3 (0.9-1.7 ng/dL), free T3 2.1 (2.3-4.1 pg/mL), on levothyroxine 125 mcg dailiy and liothyronine 10 mcg in AM and 5 mcg in PM. Other issue: Iron deficiency: 12/2015: Ferritin 6.30 (5.00-148.00 ng/mL), on no iron. I started Ferrous Gluconate 325 mg daily, separate from her thyroid meds. She could not find ferrous gluconate, and tried ferrous sulfate, and tolerated well without any allergic reactions. 03/2016: Ferritin 23.60 (5.00-148.00 ng/mL), on ferrous sulfate 325 mg daily. Tolerating the ferroussulfate without any allergic reactions. 06/2016: Ferritin 16.70 (5.00-148.00 ng/mL), on ferrous sulfate 325 mg daily. I asked her to attempt to get two pills per day, and use a vitamin C at same time to improve absorption. 01/2017: Ferritin 47.60 (5.00-148.00 ng/mL), on ferrous sulfate 325 mg x two pills daily. Improvement. I had her change to about 10 pills per week. 07/2017: Ferritin 39.40 (8.00-252.00 ng/mL), on iron 10 pills per week. I re- increased her to 2 perday. 05/2018: Ferritin 70.00 (8.00-252.00 ng/mL), on ferrous sulfate 325 mg x one pill day one, and two pills daily two. 06/2019: Ferritin 91.50 (8-252 ng/mL), 05/2020: Ferritin 152.8 (14.7-205.1 ng/mL), iron 50 (41-186 ug/dL), TIBC 309 (232-386 ug/dL), Iron % Saturation 16 (15-57%), on ferrous sulfate 325 mg x two pills every other day. Other significant lab history: 01/2017: random cortisol 15.5 ug/dL, done at 11:41 AM. 01/2017: Celiac panel: Gliadin IgA Ab 7 (<20 units), Gliadin IgG Ab 2 (<20 Units), Reticulin Ab, IgA <1:5 (<1:5 ), Tissue Transgltaminase IgG 2 (<20 units), Transglutaminase IgA 4 (<20 units). documented in this encounter Instructions * Patient Instructions* Alvaro Wisdom - 05/21/2020 3:25 PM EDT Levothyroxine / Synthroid use guidelines: Levothyroxine (brand names Synthroid, Levoxyl, Unithroid, or generic levothyroxine) is best taken all by itself, and with an empty stomach. The three best times to take the levothyroxine are: 1. In the morning (ideally the first thing you do when you wake up). See coffee issue, below. 2. At bedtime (if no other medicines or supplements at that time, and few hours after last food.) 3. In the middle of the night, when you wake up to urinate. This may be the ideal time, as it allows multiple hours prior to any other beverage/food or pill(s). Take the levothyroxine with water (and water only, no other type of beverages). Take one hour before any coffee, as coffee has been shown to interfere with the absorption of the levothyroxine. Take (at least) one hour prior to any other medicines. I prefer three hours, especially if the medication or supplement has iron or calcium. Take on empty stomach (one hour prior to food or three (or more) hours after a meal.) If you forget to take a dose, then its is ok to take two pills the next day. Liothyronine (Cytomel) use guidelines: Take first pill upon waking. This can be taken with a levothyroxine/ Synthroid pill, if that is also taken in the AM. Take the second pill in early afternoon (few hours after lunch and at least 1 hour prior to supper is ideal). Dont take the second Liothyronine too late in the day, as this is the active thyroid hormone, and could have a stimulant effect (which could disrupt sleep if taken too late in day.) If I have you on three times per day dosing, then take the second and third pills prior to lunch and supper meals. Ideally take 30-60 minutes prior to those meals. If you miss a dose, do not try to catch up. Just restart with the next scheduled dose. 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- Primary Acquired hypothyroidism Unspecified hypothyroidism Chief Complaint and Reason for Visit Chief Complaint 1 Y FU 3 M FU SCREENING Reason for Visit Essential hypertensi on [id number] Nonischemic cardiomyopathy Nonrheumatic mitral (valve) insufficiency Nonrheumatic tricuspid (valve) insufficiency Pure hypercholesterolemia Stented coronary artery Colon cancer screening Preventative health care Chief Complaint Amb Documentation Cough, Congestion possible uti Urinary tract infection Reason for Visit Right otitis media Dysuria Dysuria Left flank pain Chief Complaint Amb Documentation Cough, Congestion possible uti Urinary tract infection flank pain Reason for Visit Right otitis media Dysuria Dysuria Left flank pain Chief Complaint Amb Documentation Cough, Congestion possible uti Urinary tract infection flank pain 1 Y FU Reason for Visit Right otitis media Dysuria Dysuria Left flank pain Hypothyroidism Colon cancer screening Chief Complaint Cough, Congestion possible uti Urinary tract infection flank pain 1 Y FU Annual (TUNGSTEN REFINER) ref by Dr. 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 Castaneda STROKE, ELEVATED BLOOD PRESSURE STROKE, ELEVATED BLOOD PRESSURE STROKE, ELEVATED BLOOD PRESSURE STROKE, ELEVATED BLOOD PRESSURE STROKE, ELEVATED BLOOD PRESSURE Reason for Visit Right otitis media Dysuria Dysuria Left flank pain Hypothyroidism Colon cancer screening Climacteric Routine gynecological examination Elevated blood pressure reading Facial droop Hyperglycemia Obesity Paresthesias Stroke Vision changes Chief Complaint 6 wk FU OVERDUE VISIT STROKE, VISION LOSS bi lat knee bi lat knee PRE-OP CLEARANCE PRE-OP CLEARANCE Reason for Visit Essential hypertensi on Type 2 diabetes mellitus Hypothyroidism Essential hypertension Stroke [id number] Nonischemic cardiomyopathy Pure hypercholesterolemia Osteoarthritis of knees, bilateral Chief Complaint bi lat knee bi lat knee PRE-OP CLEARANCE PRE-OP CLEARANCE PRE-OP CLEARANCE bi lat knee STAHL, concentrated urine, abd pain Reason for Visit Osteoarthritis of kn ees, bilateral Osteoarthritis of knees, bilateral Chief Complaint STAHL, concentrated uri ne, abd pain Z98.84 Bariatric surgery status Chief Complaint Admit Date SORE THROAT October 31, 2024 11: 24am 1 Y FU December 19, 2024 9:52a m Reason for Visit Admit Date Acute pharyngitis October 31, 2024 11: 24am Hypothyroidism December 19, 2024 9:52a m Obesity December 19, 2024 9:52a m Type 2 diabetes mellitus December 19, 2024 9:52am Reason for Referral Specialty Diagnoses / Procedures Referred By Marycruz sal Referred To Contact Diagnoses Pre-op examination Class 3 severe obesity due to excess calories with serious comorbidity and body mass index (BMI) of 40.0 to 44.9 in adult (HCC) Controlled type 2 diabetes mellitus without complication, unspecified whether long term care phlebotomist insulin use (HCC) Procedures REFER TO PACC - PRE ANESTHESIA CONSULTATION CLINIC OFFICE/OUTPATIENT [facility] 60-74 MINUTES Tree Lynch MD [address] [place] [address] Referral ID Status Reason Start Date Expiration Date Visits Requested Visits Authorized [id number] Pending Review PCP Requested Referral 04/18/2023 04/17/2024 1 1 Health Concerns Problem Noted Date Diagnosed Date Bariatric Surgery Analysis Manager 05/30/2023 Problem Noted Date Diagnosed Date Bariatric Surgery Analysis Manager 05/30/2023 Problem Noted Date Diagnosed Date Bariatric Surgery Analysis Manager 05/30/2023 Problem Noted Date Diagnosed Date Bariatric Surgery Analysis Manager 05/30/2023 Problem Noted Date Diagnosed Date Bariatric Surgery Analysis Manager 05/30/2023 Problem Noted Date Diagnosed Date Bariatric Surgery Analysis Manager 05/30/2023 Problem Noted Date Diagnosed Date Bariatric Surgery Analysis Manager 05/30/2023 Problem Noted Date Diagnosed Date Bariatric Surgery Analysis Manager 05/30/2023 Problem Noted Date Diagnosed Date Bariatric Surgery Analysis Manager 05/30/2023 Additional Source Comments INFORMATION SOURCE (unrecogn ized section and content) DATE CREATED AUTHOR 02/02/2018 [facility] DATE CREATED AUTHOR AUTHOR'S ORGANIZ ATION 05/24/[address] [facility] [facility] DATE CREATED AUTHOR AUTHOR'S ORGANIZ ATION 11/26/2020 [facility] DATE CREATED AUTHOR AUTHOR'S ORGANIZ ATION 07/04/2024 [facility] DATE CREATED AUTHOR AUTHOR'S ORGANIZ ATION 12/20/2024 [facility] Source Comments (unrecognize d section and content) In the event this informatio n is protected by the Federal Confidentiality of Alcohol and Drug Abuse Patient Records regulations: The Federal rules restrict any use of the information to criminally investigate or prosecute any alcohol or drug abuse patient.[facility] the event this information is protected by the Federal Confidentiality of Alcohol and Drug Abuse Patient Records regulations: The Federal rules restrict any use of the information to criminally investigate or prosecute any alcohol or drug abuse patient.[facility] the event this information is protected by the Federal Confidentiality of Alcohol and Drug Abuse Patient Records regulations: The Federal rules restrict any use of the information to criminally investigate or prosecute any alcohol or drug abuse patient.[facility]ron[facility] the event this information is protected by the Federal Confidentiality of Alcohol and Drug Abuse Patient Records regulations: The Federal rules restrict any use of the information to criminally investigate or prosecute any alcohol or drug abuse patient.[facility] the event this information is protected by the Federal Confidentiality of Alcohol and Drug Abuse Patient Records regulations: The Federal rules restrict any use of the information to criminally investigate or prosecute any alcohol or drug abuse patient.[facility]ron[facility] the event this information is protected by the Federal Confidentiality of Alcohol and Drug Abuse Patient Records regulations: The Federal rules restrict any use of the information to criminally investigate or prosecute any alcohol or drug abuse patient.[facility]ronIn the event this information is protected by the Federal Confidentiality of Alcohol and Drug Abuse Patient Records regulations: The Federal rules restrict any use of the information to criminally investigate or prosecute any alcohol or drug abuse patient.[facility]ronIn the event this information is protected by the Federal Confidentiality of Alcohol and Drug Abuse Patient Records regulations: The Federal rules restrict any use of the information to criminally investigate or prosecute any alcohol or drug abuse patient.[facility] the event this information is protected by the Federal Confidentiality of Alcohol and Drug Abuse Patient Records regulations: The Federal rules restrict any use of the information to criminally investigate or prosecute any alcohol or drug abuse patient.[facility] the event this information is protected by the Federal Confidentiality of Alcohol and Drug Abuse Patient Records regulations: The Federal rules restrict any use of the information to criminally investigate or prosecute any alcohol or drug abuse patient.[facility] the event this information is protected by the Federal Confidentiality of Alcohol and Drug Abuse Patient Records regulations: The Federal rules restrict any use of the information to criminally investigate or prosecute any alcohol or drug abuse patient.[facility] the event this information is protected by the Federal Confidentiality of Alcohol and Drug Abuse Patient Records regulations: The Federal rules restrict any use of the information to criminally investigate or prosecute any alcohol or drug abuse patient.[facility]ronIn the event this information is protected by the Federal Confidentiality of Alcohol and Drug Abuse Patient Records regulations: The Federal rules restrict any use of the information to criminally investigate or prosecute any alcohol or drug abuse patient.[facility]ronIn the event this information is protected by the Federal Confidentiality of Alcohol and Drug Abuse Patient Records regulations: The Federal rules restrict any use of the information to criminally investigate or prosecute any alcohol or drug abuse patient.[facility]ronIn the event this information is protected by the Federal Confidentiality of Alcohol and Drug Abuse Patient Records regulations: The Federal rules restrict any use of the information to criminally investigate or prosecute any alcohol or drug abuse patient.[facility]ronIn the event this information is protected by the Federal Confidentiality of Alcohol and Drug Abuse Patient Records regulations: The Federal rules restrict any use of the information to criminally investigate or prosecute any alcohol or drug abuse patient.[facility]ronIn the event this information is protected by the Federal Confidentiality of Alcohol and Drug Abuse Patient Records regulations: The Federal rules restrict any use of the information to criminally investigate or prosecute any alcohol or drug abuse patient.[facility]ronIn the event this information is protected by the Federal Confidentiality of Alcohol and Drug Abuse Patient Records regulations: The Federal rules restrict any use of the information to criminally investigate or prosecute any alcohol or drug abuse patient.[facility]ronIn the event this information is protected by the Federal Confidentiality of Alcohol and Drug Abuse Patient Records regulations: The Federal rules restrict any use of the information to criminally investigate or prosecute any alcohol or drug abuse patient.[facility]ronIn the event this information is protected by the Federal Confidentiality of Alcohol and Drug Abuse Patient Records regulations: The Federal rules restrict any use of the information to criminally investigate or prosecute any alcohol or drug abuse patient.[facility]ronIn the event this information is protected by the Federal Confidentiality of Alcohol and Drug Abuse Patient Records regulations: The Federal rules restrict any use of the information to criminally investigate or prosecute any alcohol or drug abuse patient.[facility]ronIn the event this information is protected by the Federal Confidentiality of Alcohol and Drug Abuse Patient Records regulations: The Federal rules restrict any use of the information to criminally investigate or prosecute any alcohol or drug abuse patient.[facility]ronIn the event this information is protected by the Federal Confidentiality of Alcohol and Drug Abuse Patient Records regulations: The Federal rules restrict any use of the information to criminally investigate or prosecute any alcohol or drug abuse patient.[facility]ronIn the event this information is protected by the Federal Confidentiality of Alcohol and Drug Abuse Patient Records regulations: The Federal rules restrict any use of the information to criminally investigate or prosecute any alcohol or drug abuse patient.[facility]ronIn the event this information is protected by the Federal Confidentiality of Alcohol and Drug Abuse Patient Records regulations: The Federal rules restrict any use of the information to criminally investigate or prosecute any alcohol or drug abuse patient.[facility]ronIn the event this information is protected by the Federal Confidentiality of Alcohol and Drug Abuse Patient Records regulations: The Federal rules restrict any use of the information to criminally investigate or prosecute any alcohol or drug abuse patient.[facility]ronIn the event this information is protected by the Federal Confidentiality of Alcohol and Drug Abuse Patient Records regulations: The Federal rules restrict any use of the information to criminally investigate or prosecute any alcohol or drug abuse patient.[facility]ronIn the event this information is protected by the Federal Confidentiality of Alcohol and Drug Abuse Patient Records regulations: The Federal rules restrict any use of the information to criminally investigate or prosecute any alcohol or drug abuse patient.[facility] Reason for Visit (unrecogniz ed section and content) Reason Comments Abstract Reason Comments Hypothyroidism Follow Up Status Reason Specialty Diagnoses / Procedures Referred By Contact Referred To Contact Closed OON/Self Pay Override Endocrinology / ENDOCRINOLOGY AG Diagnoses Follow up follow up Procedures EST PATIENT VISIT LEVEL 4 EST PATIENT Alvaro Wisdom [address] [place] [address] Alvaro Wisdom [address] [place] [address] Reason Comments Follow Up Thyroid Disease Status Reason Specialty Diagnoses / Procedures Referred By Contact Referred To Contact Closed OON/Self Pay Override ENDOCRINOLOGY Diagnoses FOLLOW UP Procedures FOLLOW UP Alvaro Wisdom [address] [place] [address] Endo Ag [facility] [address] [place] [address] Reason Comments Weight Loss Surgery Reason Comments No Show Reason Comments Patient Education Reassessment Reason Comments Appointment Confirmation Reason Comments Appointment Confirmation Pre-procedure i nstructions Reason Comments Obesity Reason Comments 05/31/2023 Reason Comments Pre-Op Exam Reason Comments Pre-Op Teaching Reason Comments Pre-Op Visit Reason Comments Post Op Reason Comments Follow Up Phone Call All Clear. Reason Comments Reassessment Patient Education Reason Comments Patient Update Reason Comments Follow Up Goals (unrecognized section and content) Goals may be documented in a n alternate sectionGoals may be documented in an alternate sectionGoals may be documented in an alternate sectionGoals may be documented in an alternate sectionGoals may be documented in an alternate sectionGoals may be documented in an alternate sectionGoals may be documented in an alternate sectionGoals may be documented in an alternate sectionGoals may be documented in an alternate section Care Teams (unrecognized sec tion and content) Team Status: Active Member Role Status Dates [facility] Family Provider Active Dr. Camilla Castaneda MD Primary Care Provider Active Team Status: Active Member Role Status Dates Dr. Camilla Castaneda MD Primary Care Provider Active Bridgett Tierney Attending Provider Active Team Status: Inactive Member Role Status Dates Dr. Camilla Castaneda MD Primary Care Provider, Refer ring Provider Active Susanna De HOT PLATE PLYWOOD PRESS OPERATOR, HOT PLATE PLYWOOD PRESS OPERATOR-C Attending Provider Active Team Status: Inactive Member Role Status Dates Dr. Camilla Castaneda MD Primary Care Provider, Refer ring Provider Active KAREN Berumen Attending Provider Active Team Status: Inactive Member Role Status Dates Dr. Camilla Castaneda MD Primary Care Provider, Atten ding Provider Active Team Status: Active Member Role Status Dates Dr. Camilla Castaneda MD Primary Care Provider Active KAREN Berumen Attending Provider Active Team Status: Inactive Member Role Status Dates Dr. Camilla Castaneda MD Primary Care Provider Active KAREN Berumen Attending Provider Active Team Status: Inactive Member Role Status Dates Dr. Camilla Castaneda MD Primary Care Provider Active Luiz Cruz MD Emergency Provider Active Team Status: Inactive Member Role Status Dates Dr. Camilla Castaneda MD Primary Care Provider, Refer ring Provider Active Dr. Richard Tierney MD Attending Provider Active Team Status: Active Member Role Status Dates Dr. Camilla Castaneda MD Primary Care Provider, Refer ring Provider Active Dr. Favian Zee MD Attending Provider, Other Provider Active Team Status: Inactive Member Role Status Dates Dr. Camilla Castaneda MD Primary Care Provider, Refer ring Provider Active Dr. Favian Zee MD Attending Provider Active Team Status: Inactive Member Role Status Dates Dr. Camilla Castaneda MD Primary Care Provider Active Luiz Cruz MD Attending Provider, Emergency Provid er Active Team Status: Inactive Member Role Status Dates Dr. Camilla Castaneda MD Primary Care Provider, Refer ring Provider Active Joya Rolle HOT PLATE PLYWOOD PRESS OPERATOR, HOT PLATE PLYWOOD PRESS OPERATOR-C Attending Provider Active Team Status: Active Member Role Status Dates Dr. Camilla Castaneda MD Primary Care Provider Active Dr. Brendan Bo , DO Emergency Provider Active Dr. Vee Almaraz , DO Admit Provider, Att ending Provider, Other Provider Active Team Status: Active Member Role Status Dates Dr. Camilla Castaneda MD Primary Care Provider Active Dr. Brendan Bo , DO Emergency Provider Active Dr. Vee Almaraz , DO Admit Provider, Attending Provide r Active Team Status: Active Member Role Status Dates Dr. Camilla Castaneda MD Primary Care Provider Active Dr. Brendan Bo , DO Emergency Provider Active Dr. Vee Almaraz , DO Admit Provider, Other Provider Ac tive Dr. Krishna Hoffmann MD Attending Provider, Other Provid er Active Dr. Khanh Allen , DO Other Provider Active Dr. Sung Lozano MD Other Provider Active Dr. Rafy Can MD Other Provider Active Magda Mendenhall HOT PLATE PLYWOOD PRESS OPERATOR, HOT PLATE PLYWOOD PRESS OPERATOR-C Other Provider Active Dr. Odin Springer MD Other Provider Active Team Status: Active Member Role Status Dates Dr. Camilla Castaneda MD Primary Care Provider Active Dr. Brendan Bo , DO Emergency Provider Active Dr. Vee Almaraz , DO Admit Provider, Other Provider Ac tive Dr. Krishna Hoffmann MD Other Provider Active Dr. Khanh Allen , Other Provider Active Dr. Sung Lozano MD Other Provider Active Dr. Rafy Can MD Other Provider Active Magda Mendenhall HOT PLATE PLYWOOD PRESS OPERATOR, HOT PLATE PLYWOOD PRESS OPERATOR-C Other Provider Active Dr. Odin Springer MD Attending Provider, Other Provider Active Team Status: Active Member Role Status Dates Dr. Camilla Castaneda MD Primary Care Provider Active Dr. Janusz George MD Attending Provider Active Team Status: Inactive Member Role Status Dates Dr. Camilla Castaneda MD Primary Care Provider Active Dr. Brendan Bo , DO Emergency Provider Active Dr. Vee Almaraz , DO Admit Provider, Other Provider Ac tive Dr. Krishna Hoffmann MD Other Provider Active Dr. Khanh Allen , DO Other Provider Active Dr. Sung Lozano MD Other Provider Active Dr. Rafy Can MD Other Provider Active Magda Mendenhall HOT PLATE PLYWOOD PRESS OPERATOR, HOT PLATE PLYWOOD PRESS OPERATOR-C Other Provider Active Dr. Odin Springer MD Attending Provider Active Investment Accountant Relationship Specialty Start Date End Date JetStephenie Jessica [facility] [place] [address] PCP - General Family Medicine 05/24/18 [facility] Investment Accountant Relationship Specialty Start Date End Date JetStephenie Jessica [facility] [place] [address] PCP - General Family Medicine 05/24/18 Harshil Tyson [facility] 03/09/16 Investment Accountant Relationship Specialty Start Date End Date JetStephenie Jessica [facility] [place] [address] PCP - General Family Medicine 05/24/18 Harshil Tyson [facility] 03/09/16 Investment Accountant Relationship Specialty Start Date End Date TheronStephenie sal Jessica [facility] [place] [address] PCP - General Family Medicine 05/24/18 Harshil Tyson [facility] 03/09/16 Investment Accountant Relationship Specialty Start Date End Date Stephenie Chaudhary Jessica [facility] [place] [address] PCP - General Family Medicine 05/24/18 Harshil Tyson [facility] 03/09/16 Investment Accountant Relationship Specialty Start Date End Date [facility] [place] [address] PCP - General Family Medicine 05/24/18 Harshil Tyson [facility] 03/09/16 Team Status: Active Member Role Status Dates [facility] Family Provider Active Susanna De HOT PLATE PLYWOOD PRESS OPERATOR, HOT PLATE PLYWOOD PRESS OPERATOR-C Primary Care Provider Active Team Status: Inactive Member Role Status Dates Dr. Camilla Castaneda MD Primary Care Provider, Refer ring Provider Active Anabel Abraham PA, PA Attending Provider Active Team Status: Inactive Member Role Status Dates Dr. Camilla Castaneda MD Referring Provider Active Harshil Tyson PA, PA Attending Provider Active Team Status: Inactive Member Role Status Dates Harshil Tyson PA PA Attending Provider Active Team Status: Active Member Role Status Dates Anabel Abraham PA, PA Referring Provider, Other Provider Active Susanna De HOT PLATE PLYWOOD PRESS OPERATOR, HOT PLATE PLYWOOD PRESS OPERATOR-C Primary Care Provider Active Dr. Dorita Carey MD Attending Provider Activ e Team Status: Active Member Role Status Dates Dr. Camilla Castaneda MD Primary Care Provider Active Patient Link Program Attending Provider Active Team Status: Active Member Role Status Dates Dr. Camilla Castaneda MD Primary Care Provider Active Anabel Abraham PA, PA Attending Provider, Referr ing Provider Active Team Status: Inactive Member Role Status Dates Anabel JONES, PA Attending Provider, Referr ing Provider Active Susanna De HOT PLATE PLYWOOD PRESS OPERATOR, HOT PLATE PLYWOOD PRESS OPERATOR-C Primary Care Provider Active Investment Accountant Relationship Specialty Start Date End Date Susanna De CNP [address] [place] [address] PCP - General Family Medicine 05/02/23 Harshil Tyson [facility] 03/09/16 Investment Accountant Relationship Specialty Start Date End Date Susanna De CNP [address] [place] [address] PCP - General Family Medicine 05/02/23 Harshil Tyson [facility] 03/09/16 Investment Accountant Relationship Specialty Start Date End Date Susanna De CNP [address] [facility] [place] [address] PCP - General Family Medicine 05/02/23 Harshil Tyson [facility] 03/09/16 Investment Accountant Relationship Specialty Start Date End Date Susanna De CNP [address] [facility] [place] [address] PCP - General Family Medicine 05/02/23 Harshil Tyson [facility] 03/09/16 Investment Accountant Relationship Specialty Start Date End Date Susanna De CNP [address] [facility] [place] [address] PCP - General Family Medicine 05/02/23 Harshil Tyson [facility] 03/09/16 Investment Accountant Relationship Specialty Start Date End Date Stephenie Chaudhary [address] [facility] [place] [address] PCP - General Family Medicine 05/24/18 05/01/23 Harshil Tyson [facility] 03/09/16 Investment Accountant Relationship Specialty Start Date End Date Susanna De CNP [address] [facility] [place] [address] PCP - General Family Medicine 05/02/23 Harshil Tyson [facility] 03/09/16 Investment Accountant Relationship Specialty Start Date End Date Susanna De CNP [address] [place] [address] PCP - General Family Medicine 05/02/23 Harshil Tyson [facility] 03/09/16 Investment Accountant Relationship Specialty Start Date End Date Susanna De CNP [address] [place] [address] PCP - General Family Medicine 05/02/23 Harshil Tyson [facility] 03/09/16 Investment Accountant Relationship Specialty Start Date End Date Susanna De CNP [address] [place] [address] PCP - General Family Medicine 05/02/23 Harshil Tyson [facility] 03/09/16 Team Status: Inactive Member Role Status Dates Harshil Tyson PA, PA Attending Provider Active Susanna De HOT PLATE PLYWOOD PRESS OPERATOR, HOT PLATE PLYWOOD PRESS OPERATOR-C Primary Care Provider, Referring P kimmie Active Team Status: Active Member Role Status Dates Susanna De HOT PLATE PLYWOOD PRESS OPERATOR, HOT PLATE PLYWOOD PRESS OPERATOR-C Primary Care Provider Active Dr. Dorita Carey MD Attending Provider Activ Daniel JONES, PA Referring Provider Active Team Status: Inactive Member Role Status Dates Susanna De HOT PLATE PLYWOOD PRESS OPERATOR, HOT PLATE PLYWOOD PRESS OPERATOR-C Primary Care Provider Active Dr. Brendan Bo , DO Emergency Provider Active Team Status: Inactive Member Role Status Dates Susanna De VSC, HOT PLATE PLYWOOD PRESS OPERATOR-C Primary Care Provider, Attending Provider Active Team Status: Inactive Member Role Status Dates Susanna De HOT PLATE PLYWOOD PRESS OPERATOR, HOT PLATE PLYWOOD PRESS OPERATOR-C Primary Care Provider Active Dr. Brendan Bo , Attending Provider, Emergency P kimmie Active Investment Accountant Relationship Specialty Start Date End Date Susanna De CNP [address] [place] [address] PCP - General Family Medicine 05/02/23 Harshil Tyson [facility] 03/09/16 Team Status: Active Member Role Status Dates [facility] Family Provider Active Dr. Susanna Valente , Primary Care Provider Active Team Status: Inactive Member Role Status Dates ARLENE SWEET Attending Provider, Referring Provider Ac tive Dr. Susanna Valente , Primary Care Provider Active Investment Accountant Relationship Specialty Start Date End Date Susanna De CNP [address] [place] [address] PCP - General Family Medicine 05/02/23 Harshil Tyson [facility] 03/09/16 Team Status: Active Member Role Status Dates Susanna MOOREC, HOT PLATE PLYWOOD PRESS OPERATOR-C Primary Care Provider Active Team Status: Inactive Member Role Status Dates Susanna De VSC, HOT PLATE PLYWOOD PRESS OPERATOR-C Primary Care Provider Active Start: October 02, 2024 End: October 02, 2024 Susanna MOOREC, HOT PLATE PLYWOOD PRESS OPERATOR-C Attending Provider Active S tart: October 02, 2024 End: October 02, 2024 Team Status: Inactive Member Role Status Dates Susanna De VSC, HOT PLATE PLYWOOD PRESS OPERATOR-C Primary Care Provider Active Start: October 31, 2024 End: October 31, 2024 Susanna MOOREC, HOT PLATE PLYWOOD PRESS OPERATOR-C Referring Provider Active S tart: October 31, 2024 End: October 31, 2024 Dru JONES, PA Attending Provider Active Sta rt: October 31, 2024 End: October 31, 2024 Team Status: Inactive Member Role Status Dates Dr. Susanna Valente DO Referring Provider Active Start: December 19, 2024 End: December 19, 2024 Dr. Richard Tierney MD Attending Provider Active Sta rt: December 19, 2024 End: December 19, 2024 Susanna CALHOUN, CHARLES-C Primary Care Provider Active Start: December 19, 2024 End: December 19, 2024 FOR RECORDS PERTAINING TO PATIENTS WHO ARE OR HAVE BEEN ENROLLED IN A CHEMICAL DEPENDENCY/SUBSTANCEABUSE PROGRAM, SOME INFORMATION MAY BE OMITTED. This clinical summary was aggregated from multiple sources. Caution should be exercised in using it in the provision of clinical care. This summary normalizes information from multiple sources, and as a consequence, information in this document may materially change the coding, format and clinical context of patient data. In addition, data may be omitted in some cases. CLINICAL DECISIONS SHOULD BE BASED ON THE PRIMARY CLINICAL RECORDS. [facility] [employer] provides no warranty or guarantee of the accuracy or completeness of information in this document.
[2025-01-15] MEDS: Ketorolac 60 MG/2 ML Vial IM (01:42)
[2025-01-15] MEDS: oxyCODONE 5 MG Tablet 10 MG PO (01:42)
[2025-01-15 03:00] VITALS: BP 128/70; PULSE 80; O2SAT 96
[2025-01-15 03:20] VITALS: BP 109/89; PULSE 80; RESP 20; TEMP 37; O2SAT 96
== END 2025-01-15 03:21 | disposition home or self-care (01) ==
PROVIDERS: Emergency Provider Emergency Medicine; PCP Nurse Practitioner Family; Visit Provider Emergency Medicine
DX: M54.16 Radiculopathy, lumbar region (principal); X50.0XXA Overexertion from strenuous movement or load, initial encounter; I25.10 Atherosclerotic heart disease of native coronary artery without angina pectoris; I10 Essential (primary) hypertension; Z95.5 Presence of coronary angioplasty implant and graft; Z79.82 Long term (current) use of aspirin; Z79.899 Other long term (current) drug therapy
CPT/HCPCS: 72100; 96372; 99283